=== PATIENT | male | born 1985 | race Caucasian/White ===

== ENCOUNTER → 2018-04-02 11:40 | Outpatient (CLI) | payer BC, SELFPAY ==
[2017-11-12 14:19] VITALS: BMI 25.7
--- NOTE | 2018-04-02 09:15 | VAS_PTH ---
PATIENT: CAITLIN WARREN LOC: [facility] U#:[id number] AGE/SX: 39/M ROOM: RE04/02/[address]: Dr. Orion Zaragoza MD : 1985 BED: DIS: SPEC #: [id number] RECD: 04/02/18 14:36 STATUS: VINGESH CATALINA #: [id number] SANTIAGO: 04/02/18 09:[address]: Orion Zaragoza DEPT: SURGICAL PATHOLOGY RECD BY: Luis Denton ENTERED: 04/02/18 14:36 SP TYPE: VAS OTHR DR: Dr. Flora Degroot MD Tissues: A - Vas deferens, NOS B - Vas deferens, NOS Procedures: Surgery Specimen Level II HEADER OPERATION: Bilateral partial vasectomy PRE-OP DIAGNOSIS: Sterilization TISSUE SUBMITTED: A - Right vas deferens, B - Left vas deferens MICROSCOPIC DIAGNOSIS A. Right vas deferens, segmental vasectomy: Complete cross-section of vas deferens with no pathologic change. B. Left vas deferens, segmental vasectomy: Complete cross-section of vas deferens with no pathologic change. AM:sergio 04/05/18 MICROSCOPIC DESCRIPTION Slides are reviewed. GROSS DESCRIPTION A - Received is one container designated right vas deferens. The specimen consists of a cylindrical segment of pink-fuchs soft tissue. The fragment measures 1 cm in length and 0.2 cm in maximum diameter. Serial sections do not reveal gross lesions. The specimen is serially sectioned and totally submitted in one cassette. B - Received is one container designated left vas deferens. The specimen consists of a cylindrical segment of pink-fuchs soft tissue. The fragment measures 1 cm in length and 0.2 cm in maximum diameter. Serial sections do not reveal gross lesions. The specimen is serially sectioned and totally submitted in one cassette. / AM:sergio 04/02/18 TC:5 CPT: 19975 x2
== END ==
PROVIDERS: Referring Provider Surgery; Visit Provider Surgery
DX: Z30.2 Encounter for sterilization (principal)
CPT/HCPCS: 88302

== ENCOUNTER → 2024-05-03 | Outpatient (CLI) | payer BC, SELFPAY ==
[2024-05-03 17:06] LABS: Absolute Lymphocyte Count 0.56 X10^3/uL (0.83-4.51); Absolute Neutrophil Count 5.9 X10^3/uL (2.0-7.7); Basophil# 0.04 X10^3/uL; Basophil% 0.6 % (0-1); Eosinophil# 0.17 X10^3/uL; Eosinophils% 2.4 % (0-5); Hematocrit 41.6 % (40-54); Hemoglobin 13.7 g/dL (13.0-16.5); Lymphocyte # 0.56 X10^3/ul (0.83-4.51); Lymphocyte % 7.9 % (19-41); Mean Corp Hgb Conc 32.9 g/dL (32-36); Mean Corpuscular Hgb 27.6 pg (27.0-32.0); Mean Corpuscular Volume 83.7 fL (80-94); Mean Platelet Vol. 10.5 fl (6.2-12.0); Monocyte# 0.48 X10^3/uL; Monocyte% 6.7 % (0-10); NRBC Flagged by Analyzer 0 % (0-5); Neutrophil # 5.85 X10^3/uL (2.7-7.7); Neutrophil % 82.1 % (47-70); POSITIVE DIFFERENTIAL YES; Platelet Count 234 K/mm3 (150-450); RBC Distribution Width CV 13.6 % (11.6-14.6); RBC Distribution Width SD 41.6 fl (35.1-43.9); Red Blood Count 4.97 M/mm3 (4.6-6.2); White Blood Count 7.1 K/mm3 (4.4-11.0)
[2024-05-03 18:49] LABS: ALB/GLOB Ratio 1.2 RATIO (0.9-2.4); AST(SGOT) 22 U/L (15-37); Alanine Aminotransfer ALT/SGPT 51 U/L (16-61); Albumin, Serum 4.3 g/dL (3.2-5.0); Alkaline Phosphatase 99 U/L (45-117); Anion Gap 5 (5-15); BUN 7 mg/dL (7-18); BUN/Creat Ratio 8.4 RATIO (10-20); Calcium,Total 9.7 mg/dL (8.5-10.1); Chloride 103 mmol/L (98-107); Creatinine, Serum 0.83 mg/dL (0.70-1.30); EST Glomerular Filtration Rate 109 mL/min (>60); Est Glom Filt Rate - Afr Amer 132 mL/min (>60); Globulin 3.7 g/dL (2.2-4.2); Glucose 95 mg/dL (74-106); Potassium 3.2 mmol/L (3.5-5.1); Sodium Level 138 mmol/L (136-145)
[2024-05-03 20:05] LABS: Hepatitis B Surface Antibody Reactive; Hepatitis B Surface Antigen Non-Reactive (Nonreactive)
[2024-05-05 16:08] LABS: Endomysial Antibody IgA Negative (Negative); Hepatitis B Core Ab Total Negative (Negative); Immunoglobulin A 148 mg/dL (90-386); QNTFERON TB Mitogen Value > 10.00 IU/mL (.); QNTFERON TB Nil Value 0.01 IU/mL (.); QNTFERON TB1+ Ag Value 0 IU/mL (.); QNTFERON TB2+ Ag Value 0 IU/mL (.); QNTIFERON TB Positive Criteria Negative (Negative); t-Transglutaminase IgA <2 U/mL (0-3)
[2024-05-07 08:11] LABS: Calprotectin, Stool 71 ug/g (0-120)
== END | disposition home or self-care (01) ==
LOC: LAB 16:40 → LABSPEC 17:03
PROVIDERS: Referring Provider Nurse Practitioner Acute Care; Visit Provider Nurse Practitioner Acute Care
DX: K50.90 Crohn's disease, unspecified, without complications (principal)
CPT/HCPCS: 36415; 80053; 82784; 83516; 83993; 85025; 86255; 86480; 86704; 86706; 87340

== ENCOUNTER → 2024-06-07 | Outpatient (CLI) | payer BC, SELFPAY ==
--- NOTE | 2024-06-07 11:24 | MRI_ITS ---
PROCEDURE: PELVIS W/WO CONTRAST REASON FOR EXAM: R/O rectal / ischial abcess TECHNIQUE: Multiplanar multisequence MRI was performed of the pelvis prior to and following the administration of IV contrast. CONTRAST: 18 mL Clariscan COMPARISON: None. FINDINGS: Note axial postcontrast imaging was not performed. Visualized bowel: Unremarkable. No findings to suggest a perirectal, perianal, or ischial abscess. Lymph nodes: Unremarkable. Vasculature: Unremarkable. Peritoneum: Unremarkable. Bladder: Underdistended and suboptimally evaluated. 10 mm suspected urachal cyst along the anterior midline bladder dome. Reproductive: Small bilateral hydroceles. Bandlike T2 hypointensity in the prostatic peripheral zone, incompletely characterized on nondedicated assessment but with morphology typical for mild chronic prostatitis, a common incidental finding. Pelvic wall: Operative changes. Bones: Unremarkable. MRI/Pelvis W/WO Contrast IMPRESSION: 1. Unremarkable appearance of the included bowel. No findings to suggest a per irectal, perianal, or ischial abscess. If unexplained symptoms persist, consider CT abdomen/pelvis with contrast. 2. Additional description as above. Reading Location: [id number]
== END | disposition home or self-care (01) ==
PROVIDERS: Referring Provider Nurse Practitioner Acute Care; Visit Provider Nurse Practitioner Acute Care
DX: K50.90 Crohn's disease, unspecified, without complications (principal)
CPT/HCPCS: 72197; A9575

== ENCOUNTER → 2024-06-13 | Outpatient (CLI) | payer BC, SELFPAY ==
--- NOTE | 2024-06-13 10:12 | MRI_ITS ---
PROCEDURE: ENTEROGRAPHY ABD/PEL (procedure code MRIMRIENTER), 06/13/2024 REASON FOR EXAM: K50.90 - Crohn's disease, unspecified, without complications 90 mL Clariscan TECHNIQUE: Multisequence multiplanar MR of the abdomen and pelvis was performed before and after the administration of IV contrast. IV CONTRAST: 19 mL Clariscan COMPARISON: None FINDINGS: Variable overall mild motion limitation with some sequences being mild/moderately motion degraded. Note that the exam is optimized for evaluation of the bowel and rather than the remaining abdominopelvic viscera. Some largely upper abdominal viscera are excluded from the field of view on some sequences. Note also that dynamic precontrast imaging and diffusion-weighted sequences were not performed. Note also that a small portion of the transverse colon extends above the field of view at the level of the splenic flexure. Note that the perianal region is excluded from the field of view of most axial imaging. Liver: Grossly unremarkable.. Spleen: Grossly unremarkable.. Gallbladder: Unremarkable.. Pancreas: Unremarkable. Adrenals: Unremarkable. Kidneys: Tiny cyst on the left.. Bowel: Partially imaged splenic flexure as. No bowel dilatation or convincing inflammation. Suspect ileocecectomy with ileocecal anastomosis. Short segment (approximately 2 cm) of borderline mild T2 dark wall thickening along the neoterminal ileum, up to a maximum 5 mm without mural stratification, hyperemia or adjacent mesenteric inflammation. No other convincing areas of abnormal wall thickening allowing for underdistention thickening of some segments. No evidence of fistulization or abscess. Appendix probably surgically absent.. Lymph nodes: Unremarkable. Vasculature: Unremarkable. Peritoneum: Unremarkable. Bladder: 8 mm suspected urachal cyst along the midline anterior bladder dome. Reproductive Organs: Grossly unremarkable.. Body Wall: Operative changes. Bones: Presumed hemangioma in a lower thoracic vertebral body in the absence of known malignancy. Trace thoracolumbar dextroscoliosis may be positional. MRI/Enterography Abd/Pel IMPRESSION: 1. Suspect ileocecectomy with ileocolic anastomosis. There is a short segment of mild apparent wall thickening along the neoterminal ileum, without convincing evidence of associated active inflammatio n. This could be related to underdistention, or perhaps fibrosis related to previous inflammation. This would be optimally end ed evaluated endoscopically. No bowel dilatation to confirm that this reflects a stricture. No other abnormal areas of abnormal bowel are confidently identified, allowing for limitations. No definite evidence of penetrating disease such as fistulization or abscess. 2. Additional description as above. Reading Location: [id number]
[2024-06-13 11:00] VITALS: BP 164/110; PULSE 58; RESP 18; TEMP 36.3; O2SAT 99; BMI 25.0
[2024-06-13] MEDS: Glucagon 1 MG/ML Syringe IV (11:55)
[2024-06-13] MEDS: 0.9% Saline Lock 10 ML Syringe IV (11:55)
[2024-06-13 12:07] VITALS: BP 169/115; PULSE 78; RESP 18; O2SAT 100
== END | disposition home or self-care (01) ==
LOC: MRI 10:02
PROVIDERS: PCP Family Medicine; Referring Provider Nurse Practitioner Acute Care; Visit Provider Nurse Practitioner Acute Care
DX: K50.90 Crohn's disease, unspecified, without complications (principal)
CPT/HCPCS: 74183; 96374; A9575; J1610

== ENCOUNTER → 2024-06-20 | Outpatient (CLI) | payer BC, SELFPAY ==
[2024-06-20 22:13] LABS: Vitamin B12 358 pg/mL (180-914); Vitamin D,25 Hydroxy 34.6 ng/mL (30-100)
== END | disposition home or self-care (01) ==
LOC: LAB 15:57
PROVIDERS: PCP Family Medicine; Referring Provider Nurse Practitioner Acute Care; Visit Provider Nurse Practitioner Acute Care
DX: K50.813 Crohn's disease of both small and large intestine with fistula (principal); K90.9 Intestinal malabsorption, unspecified
CPT/HCPCS: 36415; 82306; 82607; 86140

== ENCOUNTER 2024-07-14 05:42 | Day surgery (SDC) | payer BC, SELFPAY ==
[2024-07-14] VITALS (8 sets, daily range): BP systolic 112–134; BP diastolic 75–92; PULSE 71–89; RESP 16–18; TEMP 36.3–36.4; O2SAT 95–98; BMI 26.6
--- NOTE | 2024-07-14 06:23 | PRE.ANES_ITS ---
ASA Classification* ASA Classification ASA Classification: 2 Assessment & Plan Anesthesia* Anesthesia Assessment Anesthesia Assessment: Discussed sedation and/or anesthesia options, risks, benefits, and alternatives with patient/parents/legal guardian/POA. Questions invited. The patient/parents/legal guardian/POA seems to understand and agrees to proceed with anesthesia plan. Reviewed the physical assessment, medical history, allergy history and patient home medications list prior to surgery/procedure/anesthetic and documented any changes. Performed airway and anesthesia risk assessments. Anesthesia Type Anesthesia Type: MAC History Source History Obtained from:: Patient and Chart Anesthesia Focused Assessment* Temperature: 97.5 F Pulse Rate: 71 Blood Pressure: 134/92 Respiratory Rate: 16 Pulse Ox: 98 Oxygen Delivery Method: Room Air Airway Assessment Mouth opens: >3 cm Mallampati Score: III Teeth Condition: Missing (Patient has several missing molars. Rest are tight.) Focused Labs Anesthesia Preop lab: CBC WBC 7.1 K/mm3 (4.4-11.0) 05/03/24 16:43 05/03/24 RBC 4.97 M/mm3 (4.6-6.2) 05/03/24 16:43 05/03/24 Hgb 13.7 g/dL (13.0-16.5) 05/03/24 16:43 05/03/24 Hct 41.6 % (40-54) 05/03/24 16:43 05/03/24 Plt Count 234 K/mm3 (150-450) 05/03/24 16:43 05/03/24 CHEMISTRY Potassium 3.2 mmol/L (3.5-5.1) L 05/03/24 16:43 05/03/24 Sodium 138 mmol/L (136-145) 05/03/24 16:43 05/03/24 BUN 7 mg/dL (7-18) 05/03/24 16:43 05/03/24 Creatinine 0.83 mg/dL (0.70-1.30) 05/03/24 16:43 05/03/24 Glucose 95 mg/dL (74-106) 05/03/24 16:43 05/03/24 COAG Pre-Assessment Diagnosis/Proposed Procedure Planned Operative Procedure(s): COLONOSCOPY/EGD Anesthesia History 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 When Was Last Pacemaker Check QUESTION #4 FULL TEXT: You/Your Family Experience fever (hyperthermia) with Anesthesia Last Oral Intake Last Oral intake: Last Oral Intake NPO since 02:07/14/24 06:12 Meds taken in AM with sips of Yes 07/14/24 06:12 water? Meds patient instructed to take am of surgery Any additional information?: Yes NPO since: 02:30 (Patient finished prep at 2:30 AM.) Meds taken in AM with sips of water?: Yes PONV PONV - airline customer service agent: PONV - airline customer service agent Female No 07/08/24 12:09 HX of Motion Sickness No 07/08/24 12:09 HX of N/V After Surgery No 07/08/24 12:09 Non-Smoker Yes 07/08/24 12:09 Duration of Surgery greater No 07/08/24 12:09 than 60 minutes Number of Risk Factors 1 07/08/24 12:09 PONV Score Low Risk 07/08/24 12:09 Height & Weight Height & Weight: Anesthesia: Height & Weight Height 6 ft 1 in 07/14/24 06:12 Weight: 91.716 kg 07/14/24 06:12 Body Mass Index (BMI) 26.6 07/14/24 06:12 Respiratory Assessment Respiratory Assessment - airline customer service agent: Respiratory Tract Infection Hx - airline customer service agent Hx Respiratory Tract Infection No 07/08/24 12:09 Any additional information?: Yes Hx Respiratory Tract Infection: Yes (Cough from allergies recently.) STOP Sleep Apnea STOP Sleep Apnea - airline customer service agent: STOP Sleep Apnea - airline customer service agent Hx Hypertension Yes: RECENTLY STARTED MED, 07/08/24 12:09 NOT CONTROLLED, INSTRUCTED TO CALL PCP Hx Sleep Apnea No 07/08/24 12:09 CPAP BIPAP Do you snore loudly (louder No 07/08/24 12:09 than talking or can be heard Do you often feel tired/ No 07/08/24 12:09 fatigued/ sleepy during daytime? Has anyone observed you stop No 07/08/24 12:09 breathing during sleep? STOP Results Negative 07/08/24 12:09 QUESTION #5 FULL TEXT : Do you snore loudly (louder than talking or can be heard through closed doors)? 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 Specify any problems Hx of Preganancy in last 3 N/A 07/08/24 12:09 Months Nurse Filling Out Transfusion VCHRISTIN 07/08/24 12:09 & Questions: Date: 07/08/24 07/08/24 12:09 Time: 12:11 07/08/24 12:09 Patient unable to answer at this time (ie. confused, unrespo /Reproduction History /Reproductive History - airline customer service agent: /Reproductive Hx- airline customer service agent Hx Now Gestational Age (in weeks): EDC: Hx Hx Para Hx Section SAB Active Medications Active Medications: Current Medications Generic Name Dose Route Start Last Admin Trade Name Freq PRN Reason Stop Dose Admin Sodium Chloride 10 - 40 ml 06/13/24 10:57 0.9% Saline Lock 10 Ml Syringe IV UD PRN SALINE FLUSH PFSH Medical History Wears contact lenses Alcohol use Prostate disease Dietary restriction History of diverticulitis History of Crohn's disease Non-smoker Hypertension Recurrent right inguinal hernia Home Medications ?Medication ?Instructions ?Recorded ?Last Taken ?Type Bacillus coagulans 250 million 1 tab PO DAILY 06/20/24 07/13/24 History cell chewable tablet (Digestive Advantage Probiotic Gummy) metronidazole 500 mg tablet 500 mg PO BID fistulizing Crohn's 06/20/24 07/13/24 Rx #60 tabs budesonide 3 mg 9 mg PO QAM Crohn's 07/08/24 07/13/24 History capsule,delayed,extended release multivitamin (Daily Multi-Vitamin 1 tab PO DAILY 07/0807/13/24 History tablet) amlodipine 5 mg tablet 5 mg PO BID 07/14/24 5 04:30 History losartan 50 mg-hydrochlorothiazide 2 tab PO DAILY 07/0507/13/24 History 12.5 mg tablet (Hyzaar) Allergy/AdvReac Type Severity Reaction Status Date / Time lactose (lactose intolerant) Allergy Severe OTHER Verified 07/14/24 06:08 Family History Father Arthritis Surgical History History of bowel resection History of appendectomy History of vasectomy (~03/2018) Hernia Social History Smoking Status: Never smoker alcohol intake: current alcohol intake frequency: a few times a month Review of Systems (Anesthesia) ROS Narrative System reviewed and no additional complaints, except as documented. 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
--- NOTE | 2024-07-14 06:30 | EGD_PTH ---
PATIENT: CAITLIN WARREN LOC: [facility] U#:[id number] AGE/SX: 39/M ROOM: RE07/14/[address]: Dr. Price Villanueva DO : 1985 BED: DIS: 07/14/2024 SPEC #: [id number] RECD: 07/14/24 08:58 STATUS: VIGNESH CATALINA #: [id number] SANTIAGO: 07/14/24 06:[address]: Price Villanueva DEPT: SURGICAL PATHOLOGY RECD BY: Bandar Murray ENTERED: 07/14/24 08:59 SP TYPE: EGD BIOPSY MARGARITA DR: Dr. Doni Degroot MD Tissues: A - Esophagus, NOS B - COLON BIOPSY C - Ileum, NOS Procedures: Surgery Specimen Level IV HEADER OPERATION: Colonoscopy, EGD, biopsy PRE-OP DIAGNOSIS: Crohn's disease, abdominal pain, diarrhea TISSUE SUBMITTED: A- Distal esophagus biopsy, B- Anastomosis biopsy, C- Terminal ileum biopsy MICROSCOPIC DIAGNOSIS A. Distal esophagus, biopsy: * Benign squamous epithelium * Oxyntocardiac type mucosa with mild chronic inflammation, negative for goblet cells B. Anastomosis site, biopsy: * Mild active chronic ileocolitis, negative for dysplasia C. Small intestine, terminal ileum, biopsy: * Small bowel mucosa with no pathologic change COMMENT The patient's clinical history of Crohn's disease is noted MICROSCOPIC DESCRIPTION Slides are reviewed. GROSS DESCRIPTION A. Received in formalin in a container labeled with the patient's name, date of , and distal esophagus biopsy is a 0.4 x 0.3 x 0.2 cm fragment of fuchs-pink mucosal tissue. Submitted in toto in A1. B. Received in formalin in a container labeled with the patient's name, date of , and anastomosis biopsy are 2 fuchs-pink fragments of mucosal tissue measuring 0.4 x 0.3 x 0.3 cm and 0.6 x 0.5 x 0.2 cm. Submitted in toto in B1. C. Received in formalin in a container labeled with the patient's name, date of , and terminal ileum biopsy are 2 fuchs-pink fragments of mucosal tissue, each measuring 0.3 x 0.3 x 0.3 cm. Submitted in toto in C1. [facility] 07-14-2024 CPT:96173o8
--- NOTE | 2024-07-14 07:01 | PCM.HP.STD ---
[facility] - General General Date of Admission: 07/14/24 Date of Service: 07/14/24 Chief Complaint: Crohns disease with abdominal pain HPI Narrative CAITLIN WARREN, is a 39 M who presents for the evaluation of abdominal pain. He presented to the ED on 03/21/2024 with complaints of abdominal pain which he had reported was present for >20 years and worse over the past three weeks accompanied by diarrhea. In ED he had a leukocytosis with a left shift, HGB 13.[address] was revealing for appendicitis, thickening of the adjacent SB and 3.2cm pelvic fluid collection. He underwent exploratory laparoscopy, lysis of dense adhesions, oversewing sigmoid enterotomy, ileocecal resection and side to side anastomosis. Pathology is revealing for ileocecal junction with active chronic inflammation with ulceration, full-thickness inflammation, fibrous serosal adhesions and fistula consistent with crohn's. He reports PMH of IBS diagnosed at 18y/o, rectal abscess with I&D in 2013. He has had crampy abdominal pain with diarrhea for many years which he always suspected was secondary to IBS and food intolerances. He denies any family history of IBD. He presently complains of RLQ pain with PO intake, he is continuing to experience diarrhea and rectal jelly discharge. He denies any rectal pain and reports an initial weight loss of 20lbs post-op but has gained 10lb back. He is tolerating soft foods, but reports diarrhea with any PO intake. Prior to admission and immediately post he was taking IBU or Advil for pain management. He presently denies any rectal bleeding. He has 3-4 loose stools daily, but report no nocturnal stools post-op. Rectal exam is unremarkable, he does have a 2-3cm ovoid firm fullness right ischium. I have scheduled him for a colonoscopy and EGD. I have ordered MRE, MRI pelvis, labs and stool studies in anticipation of starting biologic therapy. I have reviewed with Dr. Villanueva and I will start him on Metronidazole 250mg BID (until biologic is initiated), Budesonide 9mg QD, probiotic and initiate PA for biologic once labs have resulted. A total of 90 minutes was spent on this visit reviewing [facility] and/or [facility] for associated records; previous notes (OP note 03/21, pathology, CT 03/21, CT 03/24, CT 03/27, CBC, CMP,CRP), counseling the patient on (Reviewing pathology findings with patient and , reviewing likely Crohn's diagnosis, reviewing recommended next steps, explained in detail need to solidify the diagnosis of Crohn's which is highly suspected and treat inflammation before considering another alternative for cause of diarrhea such as food allergens which has requested be worked up, reviewing anatomy post-op with side to side anastomosis and lack of IC valve resulting in increased risk of diarrhea, importance of avoiding all NSAIDS, potential treatment approach for IBD), ordering tests (Colon/EGD, MRE, MRI pelvis, CBC, CMP, CRP, Celiac serologies, HBV Core, HBVsAb, HBVsAg, Vitamin B12, Vitamin D, C. Diff, GIPCR, O&P, fecal calprotectin), adjusting meds, importance of compliance with treatment and documenting the findings in the note. CBC: 05/03/2024 WNL CMP: 05/03/2024 K+ 3.2, T. Bili 1.5 CRP: Fecal Calprotectin: 05/03/2024 71 Quantiferon: 05/03/2024 negative HBVsA05/03/2024 negative HBVsAb: 05/03/2024 reactive HBV Core Ab Total: 05/03/2024 negative Colon: scheduled 07/15/2024 - per surgeon stated we must wait another 6-8 weeks post last OV (05/05/2024) due to the severity of inflammation and friability like tissue trying to sew back together MRE: 06/13/2024 There is a short segment of mild apparent wall thickening along the neoterminal ileum, without convincing evidence of associated active inflammation. This could be related to underdistention, or perhaps fibrosis related to previous inflammation. This would be optimally ended evaluated endoscopically. No bowel dilatation to confirm that this reflects a stricture. No other abnormal areas of abnormal bowel are confidently identified, allowing for limitations. No definite evidence of penetrating disease such as fistulization or abscess. COVID Varicella Hepattis B - positive Ab 05/03/2024 Influenza Pneumonia Shingles - he avoiding dairy, raw vegetables and alcohol - He looks better today compared to April IBD SYMPTOMS: Bowel movements are: this week stools are formed and normal, 3x a day this is an improvement prior to surgery he was having 5-8 stools a day and often would not make it through a meal without having diarrhea Blood noted in stools: denies Bowel movement urgency present: occasional Stool incontinence: denies Nocturnal BM's: denies Abdominal pain: RLQ and LLQ Rectal pain: denies QOL: good [facility] History Wears contact lenses Alcohol use Prostate disease Dietary restriction History of diverticulitis History of Crohn's disease Non-smoker Hypertension Recurrent right inguinal hernia Home Medications ?Medication ?Instructions ?Recorded ?Last Taken ?Type Bacillus coagulans 250 million 1 tab PO DAILY 06/20/24 07/13/24 History cell chewable tablet (Digestive Advantage Probiotic Gummy) metronidazole 500 mg tablet 500 mg PO BID fistulizing Crohn's 06/20/24 07/13/24 Rx #60 tabs budesonide 3 mg 9 mg PO QAM Crohn's 07/08/24 07/13/24 History capsule,delayed,extended release multivitamin (Daily Multi-Vitamin 1 tab PO DAILY 07/08/24 07/13/24 History tablet) amlodipine 5 mg tablet 5 mg PO BID 07/14/24 07/14/24 04:30 History losartan 50 mg-hydrochlorothiazide 2 tab PO DAILY 07/14/24 07/13/24 History 12.5 mg tablet (Hyzaar) Allergy/AdvReac Type Severity Reaction Status Date / Time lactose (lactose intolerant) Allergy Severe OTHER Verified 07/14/24 06:08 Family History Father Arthritis Surgical History History of bowel resection History of appendectomy History of vasectomy (~03/2018) Hernia Social History Smoking Status: Never smoker alcohol intake: current alcohol intake frequency: a few times a month ROS Constitutional Constitutional: Denies fatigue, fever(s), poor appetite, weight gain or weight loss Gastrointestinal Gastrointestinal: Denies belching, bloating, change in bowel habits, change in stool character, chewing difficulty, coffee ground emesis, constipation, cramping, diarrhea, dyspepsia, dysphagia, early satiety, excessive flatus, fecal incontinence, heartburn, hematemesis, hematochezia, hemorrhoids, loose stools, melena, nausea, odynophagia, rectal bleeding, tenesmus, vomiting or weight changes Vital Signs Vital Signs Vital Signs: 07/14/24 06:10 07/14/24 06:12 07/14/24 06:29 Temperature 97.5 F L 97.5 F L Temperature Source Temporal Pulse Rate 71 71 Respiratory Rate 16 16 Respiratory Pattern Normal Blood Pressure 134/92 H 134/92 H Blood Pressure Mean 106 Blood Pressure Source Monitor Blood Pressure Position Semi-Fowlers Blood Pressure Location Left Arm Pulse Ox 98 98 Oxygen Delivery Method Room Air Room Air Weight Weight: 202 lb 3.2 oz Body Mass Index (BMI) 26.6 Physical Exam Const alert, oriented x3, no apparent distress and healthy appearing General Appearance: cooperative GI normal to inspection, nondistended, normoactive bowel sounds, soft to palpation, non-tender and non-distended Percussion: normal to percussion Rectal Exam: deferred Assessment & Plan Assessment/Plan (1) Diarrhea: QUALIFIERS: Diarrhea type: due to malabsorption Qualified Code(s): 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, unspecified; R19.7 - Diarrhea, unspecified (2) Abdominal pain: QUALIFIERS: Abdominal location: right lower quadrant Qualified Code(s): R10.31 - Right lower quadrant pain (3) Crohn disease: QUALIFIERS: Gastrointestinal tract location: small and large intestine Digestive disease complication type: with fistula Qualified Code(s): K50.813 - Crohn's disease of both small and large intestine with fistula PLAN: Assessment and Plan Assessment and Plan (1) Crohn disease: Status: Acute Qualifiers: Digestive disease complication type: with fistula Gastrointestinal tract location: small and large intestine Qualified Code(s): K50.813 - Crohn's disease of both small and large intestine with fistula Comment: 03/21/2024 exploratory laparoscopy, lysis of dense adhesions, oversewing sigmoid enterotomy, ileocecal resection and side to side anastomosis. Pathology is revealing for ileocecal junction with active chronic inflammation with ulceration, full-thickness inflammation, fibrous serosal adhesions and fistula consistent with crohn's. (2) Abdominal pain: Status: Acute Qualifiers: Abdominal location: right lower quadrant Qualified Code(s): R10.31 - Right lower quadrant pain (3) Diarrhea: Status: Acute Qualifiers: Diarrhea type: due to malabsorption Qualified Code(s): 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, unspecified; R19.7 - Diarrhea, unspecified Orders: Orders Miscellaneous Lab Procedure Today K50.813 - Crohn's disease of both small and large intestine with fistula, 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, unspecified, R10.31 - Right lower quadrant pain, R19.7 - Diarrhea, unspecified Medications: New metronidazole 500 mg PO BID 60 tabs 1RF fistulizing Crohn's budesonide DR-ER 6 mg (2 x 3 mg) PO QAM 60 ea 3RF Crohn's Discontinued budesonide DR-ER Take 3 capsules once every morning Discontinued Reason: Order Changed 9 mg (3 x 3 mg) PO QDAY 90 ea 1RF Plan 39y/o male presents for follow-up. He remains on Budesonide 9mg daily, but complains of insomnia and hypertension. He reports an improvement in abdominal pain and diarrhea. He continues to experience intermittent mild RLQ and LLQ pain with occasional diarrhea. He denies any bleeding and reports an improvement in appetite and weight. His pathology is consistent with Crohn's disease, and his recent surgery suggests significant prior inflammation and complications (adhesions, fistula and reactive enteritis). His fecal calprotectin of 71 is reassuring, suggesting minimal active inflammation, and his MRE does not show clear active disease, strictures or fistulization. While the pathology from surgery confirms the diagnosis, I recommend a colonoscopy to assess the full extent and severity of his crohn's disease. Since his fecal calprotectin was relatively low, there may not be significant inflammation, but given his history of complications (adhesions, fistula), a full evaluation is warranted before finalizing a long-term treatment plan. Due to c/o insomnia, I have decreased his Budesonide to 6mg daily and he will contact me with any increase in pain, diarrhea or obstructive symptoms. I have asked him to follow-up with PCP, while budesonide may contribute to some mild hypertension, it is not the cause of SBP in the 170's and DBP in the 120's. does report he had issues with hypertension prior to surgery March 2024. Post colonoscopy, I recommend transitioning to maintenance therapy and with his history of fistulizing disease I recommend triple therapy with a combination of Remicade and Imuran with antibiotics for 2-3 months. Patient Instructions: Decrease Budesonide to 6mg daily Continue Metronidazole 500mg BID Follow-up with PCP for hypertension Adequate dietary intake is important, recommend he remain on a low residue diet at this time Avoid all non-steroidal medications Repeat fecal calprotectin, inflammatory markers and consider repeat imaging if symptoms suggest disease progression Link to dietary recommendations [email or web address] Complete labs TPMT activity level: Test# [id number] (TPMT helps clear the medication from your system. If you have lower amounts of TPMT, you may be at higher risk for medication toxicity.) Thiopuring Metabolites: Thiopurine Metabolites Test# 428091 TPMT Genotyping Test# 778808 Vitamin D Vitamin B12 CRP Plan Details Follow Up: 6 Weeks
--- NOTE | 2024-07-14 07:31 | OP.CCLET_ITS ---
07/14/2024 Doni Degroot Md Re : Upper GI endoscopy procedure for Jair Issa Dear Zane This procedure was performed on July. My impressions and recommendations are as follows: Impressions : - LA Grade B reflux esophagitis with no bleeding. Biopsied. - Gastroparesis. - Erythematous duodenopathy. Recommendations : - Discharge patient to home. - Resume previous diet. - Continue present medications. - Await pathology results. - Repeat upper endoscopy. My findings are described in the full procedure note, which is enclosed. If I can be of further assistance, please feel free to contact me at . Sincerely, Price Villanueva, 07/14/2024 7:30:55 AM This report has been signed electronically.
--- NOTE | 2024-07-14 07:31 | OP.EGD_ITS ---
Patient Name: Jair Issa Procedure Date: 07/14/2024 6:22 AM Date of : 1985 Age: 39 Procedure: Upper GI endoscopy Indications: Epigastric abdominal pain Providers: Price Villanueva DO Referring MD: Doni Degroot Md Medicines: Monitored Anesthesia Care Patient Profile: This is a 39 year old male. Refer to note in patient chart for documentation of history and physical. Patient has symptoms of chronic global abdominal pain and chronic nausea. Complications: No immediate complications. Procedure: Pre-Anesthesia Assessment: - Prior to the procedure, a History and Physical was performed, and patient medications and allergies were reviewed. The patient is competent. The risks and benefits of the procedure and the sedation options and risks were discussed with the patient. All questions were answered and informed consent was obtained. Patient identification and proposed procedure were verified by the physician in the pre-procedure area. Mental Status Examination: alert and oriented. Airway Examination: normal oropharyngeal airway and neck mobility. Respiratory Examination: clear to auscultation. CV Examination: normal. Prophylactic Antibiotics: The patient does not require prophylactic antibiotics. Prior Anticoagulants: The patient has taken no anticoagulant or antiplatelet agents except for NSAID medication. ASA Grade Assessment: II - A patient with mild systemic disease. After reviewing the risks and benefits, the patient was deemed in satisfactory condition to undergo the procedure. The anesthesia plan was to use monitored anesthesia care (MAC). Immediately prior to administration of medications, the patient was re-assessed for adequacy to receive sedatives. The heart rate, respiratory rate, oxygen saturations, blood pressure, adequacy of pulmonary ventilation, and response to care were monitored throughout the procedure. The physical status of the patient was re-assessed after the procedure. After obtaining informed consent, the endoscope was passed under direct vision. Throughout the procedure, the patient's blood pressure, pulse, and oxygen saturations were monitored continuously. The colonoscope was introduced through the mouth, and advanced to the fourth part of the duodenum. Small bowel enteroscopy was deemed necessary. The upper GI endoscopy was accomplished without difficulty. The patient tolerated the procedure well. Scope In: 7:15:00 AM Scope Out: 7:16:46 AM Total Procedure Duration Time 0 hours 1 minute 46 seconds Findings: LA Grade B (one or more mucosal breaks greater than 5 mm, not extending between the tops of two mucosal folds) esophagitis with no bleeding was found 38 to 40 cm from the incisors. Biopsies were taken with a cold forceps for histology. Verification of patient identification for the specimen was done. Estimated blood loss was minimal. Suspect gastroparesis due to absence of peristalsis, patient symptoms and retained gastric contents. Diffuse mildly erythematous mucosa without active bleeding and with no stigmata of bleeding was found in the entire duodenum. Impression: - LA Grade B reflux esophagitis with no bleeding. Biopsied. - Gastroparesis. - Erythematous duodenopathy. Recommendation: - Discharge patient to home. - Resume previous diet. - Continue present medications. - Await pathology results. - Repeat upper endoscopy. Procedure Code(s): --- Professional --- 46550, Small intestinal endoscopy, enteroscopy beyond second portion of duodenum, not including ileum; with biopsy, single or multiple CPT copyright 2021 [employer]. All rights reserved. The codes documented in this report are preliminary and upon hcc coders review may be revised to meet current compliance requirements. Price Villanueva DO 07/14/2024 7:30:55 AM This report has been signed electronically. Number of Addenda: 0 Note Initiated On: 07/14/2024 6:22 AM
--- NOTE | 2024-07-14 07:36 | PCM.POST.ANE ---
Anesthesia: Postop Eval I Current Vital Signs Temperature: 97.3 F Pulse Rate: 86 Blood Pressure: 114/80 Respiratory Rate: 18 Pulse Ox: 96 Oxygen Delivery Method: Room Air Assessment Airway patent: Yes Spontaneous unlabored respirations: Yes Mental status: Asleep nausea: No Vomiting: No Anesthesia Complication: No Fluid Hydration Crystalloid volume administer (ml): 60 Total IV fluid infused: 60 Progress Note Anesthesia document: Postop Eval 1 completed: Yes
--- NOTE | 2024-07-14 07:37 | OP.CCLET_ITS ---
07/14/2024 Doni Degroot Md Re : Colonoscopy procedure for Jair Issa Dear Zane This procedure was performed on July. My impressions and recommendations are as follows: Impressions : - Preparation of the colon was unsatisfactory. - Patent end-to-side ileo-colonic anastomosis, characterized by erythema, inflammation and ulceration. Biopsied. - Simple Endoscopic Score for Crohn's Disease: 15, mucosal inflammatory changes secondary to Crohn's disease and secondary to Crohn's disease, with ileitis and colitis. Biopsied. - Stool in the entire examined colon. Recommendations : - Discharge patient to home. - Resume previous diet. - Continue present medications. - Await pathology results. - Repeat colonoscopy for surveillance. My findings are described in the full procedure note, which is enclosed. If I can be of further assistance, please feel free to contact me at . Sincerely, Price Villanueva, 07/14/2024 7:36:48 AM This report has been signed electronically.
--- NOTE | 2024-07-14 07:37 | OP.COLON_ITS ---
Patient Name: Jair Issa Procedure Date: 07/14/2024 7:17 AM Date of : 1985 Age: 39 Procedure: Colonoscopy Indications: Crohn's disease of the small bowel and colon Providers: Price Villanueva DO Referring MD: Doni Degroot Md Medicines: Monitored Anesthesia Care Patient Profile: This is a 39 year old male. Refer to note in patient chart for documentation of history and physical. Patient has symptoms of chronic global abdominal pain and chronic nausea. Last Colonoscopy: more than 3 years ago. Complications: No immediate complications. Procedure: Pre-Anesthesia Assessment: - Prior to the procedure, a History and Physical was performed, and patient medications and allergies were reviewed. The patient is competent. The risks and benefits of the procedure and the sedation options and risks were discussed with the patient. All questions were answered and informed consent was obtained. Patient identification and proposed procedure were verified by the physician in the pre-procedure area. Mental Status Examination: alert and oriented. Airway Examination: normal oropharyngeal airway and neck mobility. Respiratory Examination: clear to auscultation. CV Examination: normal. Prophylactic Antibiotics: The patient does not require prophylactic antibiotics. Prior Anticoagulants: The patient has taken no anticoagulant or antiplatelet agents except for NSAID medication. ASA Grade Assessment: II - A patient with mild systemic disease. After reviewing the risks and benefits, the patient was deemed in satisfactory condition to undergo the procedure. The anesthesia plan was to use monitored anesthesia care (MAC). Immediately prior to administration of medications, the patient was re-assessed for adequacy to receive sedatives. The heart rate, respiratory rate, oxygen saturations, blood pressure, adequacy of pulmonary ventilation, and response to care were monitored throughout the procedure. The physical status of the patient was re-assessed after the procedure. After I obtained informed consent, the scope was passed under direct vision. Throughout the procedure, the patient's blood pressure, pulse, and oxygen saturations were monitored continuously. The colonoscope was introduced through the anus and advanced to the terminal ileum. The colonoscopy was performed without difficulty. The patient tolerated the procedure well. The quality of the bowel preparation was unsatisfactory. The terminal ileum was photographed. Scope In: 7:18:38 AM Scope Withdrawal Time 0 hours 3 minutes 35 seconds Scope Out: 7:27:30 AM Total Procedure Duration Time 0 hours 8 minutes 52 seconds Findings: The perianal and digital rectal examinations were normal. There was evidence of a prior end-to-side ileo-colonic anastomosis in the ascending colon. This was patent and was characterized by erythema, inflammation and ulceration. The anastomosis was traversed. Biopsies were taken with a cold forceps for histology. Verification of patient identification for the specimen was done. Estimated blood loss was minimal. The Simple Endoscopic Score for Crohn's Disease was determined based on the endoscopic appearance of the mucosa in the following segments: - Ileum: Findings include ulcers greater than 2 cm in size, 10-30% ulcerated surfaces, 50-75% of surfaces affected and multiple narrowings that can be passed. Segment score: 9. - Right Colon: Findings include aphthous ulcers less than 0.5 cm in size, no ulcerated surfaces, no affected surfaces and no narrowings. Segment score: 1. - Transverse Colon: Findings include no ulcers present, no ulcerated surfaces, no affected surfaces, no narrowings and no ulcers present, no ulcerated surfaces, no affected surfaces and no narrowings. Segment score: 0. - Left Colon: Findings include large ulcers 0.5-2 cm in size, less than 10% ulcerated surfaces, less than 50% of surfaces affected, a single narrowing that can be passed and no ulcers present, no ulcerated surfaces, no affected surfaces and no narrowings. Segment score: 5. - Rectum: Findings include no ulcers present, no ulcerated surfaces, no affected surfaces, no narrowings and no ulcers present, no ulcerated surfaces, no affected surfaces and no narrowings. Segment score: 0. - Total SES-CD aggregate score: 15. Biopsies were taken with a cold forceps for histology. Verification of patient identification for the specimen was done. Estimated blood loss was minimal. Stool was found in the entire colon. Impression: - Preparation of the colon was unsatisfactory. - Patent end-to-side ileo-colonic anastomosis, characterized by erythema, inflammation and ulceration. Biopsied. - Simple Endoscopic Score for Crohn's Disease: 15, mucosal inflammatory changes secondary to Crohn's disease and secondary to Crohn's disease, with ileitis and colitis. Biopsied. - Stool in the entire examined colon. Recommendation: - Discharge patient to home. - Resume previous diet. - Continue present medications. - Await pathology results. - Repeat colonoscopy for surveillance. Procedure Code(s): --- Professional --- 27307, Colonoscopy, flexible; with biopsy, single or multiple CPT copyright 2021 [employer]. All rights reserved. The codes documented in this report are preliminary and upon clinical application manager review may be revised to meet current compliance requirements. Price Villanueva DO 07/14/2024 7:36:48 AM This report has been signed electronically. Number of Addenda: 0 Note Initiated On: 07/14/2024 7:17 AM
--- NOTE | 2024-07-14 09:01 | PCM.POSTANE2 ---
Anesthesia Postop Eval I Sum Postop Eval Completion status Anesthesia document: Postop Eval 1 completed: Yes Anesthesia Postop Eval I Summary Anesthesia Postop Eval I Summary: Anesthesia Postop Eval I: Assessment Summary Airway patent Yes 07/14/24 07:37 [email or web address] Spontaneous unlabored Yes 07/14/24 07:37 [email or web address] respirations Mental status Asleep 07/14/24 07:37 [email or web address] nausea No 07/14/24 07:37 [email or web address] Vomiting No 07/14/24 07:37 [email or web address] Anesthesia Postop Eval I: Fluid Summary Crystalloid volume administer 60 07/14/24 07:37 [email or web address] (ml) Colloids volume administered ( ml) Blood Product volume administered (ml) Total IV fluid infused 60 07/14/24 07:37 [email or web address] Anesthesia Postop Eval I: Summary Notes Anesthesia Complication No 07/14/24 07:37 [email or web address] Anesthesia Complication Comment: Post-operative progress note Anesthesia: Postop Eval II Evaluation Mental status: Awake and Calm Pain Level: 0 nausea: No Vomiting: No Complications Anesthesia Complication: No
== END 2024-07-14 08:45 | disposition home or self-care (01) ==
LOC: EN 05:42 → AC 05:44
PROVIDERS: PCP Family Medicine; Referring Provider Family Medicine; Visit Provider Internal Medicine Gastroenterology
PROC: 0DJD8ZZ Inspection of Lower Intestinal Tract, Via Natural or Artificial Opening Endoscopic (ICD-10-PCS; CPT 45378; principal; 2024-07-14 06:25)
DX: K50.80 Crohn's disease of both small and large intestine without complications (principal); K90.9 Intestinal malabsorption, unspecified; K21.00 Gastro-esophageal reflux disease with esophagitis, without bleeding; K31.89 Other diseases of stomach and duodenum; K31.84 Gastroparesis; I10 Essential (primary) hypertension; Z98.0 Intestinal bypass and anastomosis status; Z79.899 Other long term (current) drug therapy
CPT/HCPCS: 45380; 44361; 88305; A4216; J2405

== ENCOUNTER → 2024-12-26 | Outpatient (CLI) | payer BC, SELFPAY ==
[2024-12-26 12:49] LABS: Hematocrit 38.0 % (40-54); Hemoglobin 12.1 g/dL (13.0-16.5); Immature Granulocytes Count 0.030 X10^3/uL (0.0-0.0); Mean Corp Hgb Conc 31.8 g/dL (32-36); Mean Corpuscular Volume 78.4 fL (80-94); Mean Platelet Vol. 11.7 fl (6.2-12.0); NRBC Flagged by Analyzer 0 % (0-5); Platelet Count 185 K/mm3 (150-450); RBC Distribution Width CV 16.4 % (11.6-14.6); RBC Distribution Width SD 46.6 fl (35.1-43.9); Red Blood Count 4.85 M/mm3 (4.6-6.2); White Blood Count 6.3 K/mm3 (4.4-11.0)
[2024-12-26 13:51] LABS: AST(SGOT) 27 U/L (<=37); Alanine Aminotransfer ALT/SGPT 42 U/L (<=46); Albumin, Serum 4.4 g/dL (3.5-5.0); Alkaline Phosphatase 59 U/L (40-129); Anion Gap 12 (5-15); BUN 12 mg/dL (4-19); BUN/Creat Ratio 12.8 RATIO (10-20); CRP < 3.00 mg/L (0.0-3.0); Calcium,Total 9.8 mg/dL (7.6-11.0); Carbon Dioxide 27.8 mmol/L (21.0-32.0); Chloride 101 mmol/L (98-108); Globulin 2.6 g/dL (2.2-4.2); Glucose 95 mg/dL (70-99); Lipase 83 U/L (13-75); Potassium 3.2 mmol/L (3.3-5.1)
[2024-12-28 11:21] LABS: Ferritin 11 ng/mL (37-417); Iron 32 ug/dL (65-175); Iron Binding Capacity,Unsat 440 ug/dL (228-428)
[2024-12-28 14:12] LABS: Iron Binding Capacity,Total 472 ug/dL (250-450)
== END | disposition home or self-care (01) ==
LOC: LAB 11:29
PROVIDERS: PCP Family Medicine; Referring Provider Nurse Practitioner Acute Care; Visit Provider Nurse Practitioner Acute Care
DX: R74.8 Abnormal levels of other serum enzymes (principal); K50.813 Crohn's disease of both small and large intestine with fistula; D64.9 Anemia, unspecified; D84.9 Immunodeficiency, unspecified; K90.9 Intestinal malabsorption, unspecified; Z51.81 Encounter for therapeutic drug level monitoring
CPT/HCPCS: 36415; 80053; 82728; 83540; 83550; 83690; 85025; 86140

== ENCOUNTER → 2025-02-01 | Outpatient (CLI) | payer BC, SELFPAY ==
--- NOTE | 2025-02-01 14:35 | CT_ITS ---
PROCEDURE: CT/Abdomen/Pelvis WITH Contrast
[2025-02-01 16:01] LABS: Hematocrit 41.9 % (40-54); Hemoglobin 13.7 g/dL (13.0-16.5); Immature Granulocytes Count 0.010 X10^3/uL (0.0-0.0); Mean Corp Hgb Conc 32.7 g/dL (32-36); Mean Corpuscular Volume 81.5 fL (80-94); Mean Platelet Vol. 10.9 fl (6.2-12.0); NRBC Flagged by Analyzer 0 % (0-5); Platelet Count 172 K/mm3 (150-450); RBC Distribution Width CV 19.1 % (11.6-14.6); RBC Distribution Width SD 55.9 fl (35.1-43.9); Red Blood Count 5.14 M/mm3 (4.6-6.2); White Blood Count 5.6 K/mm3 (4.4-11.0)
[2025-02-01 16:33] LABS: BUN 12 mg/dL (4-19); Glucose 84 mg/dL (70-99)
[2025-02-01 16:34] LABS: AST(SGOT) 46 U/L (<=37); Alanine Aminotransfer ALT/SGPT 82 U/L (<=46); Albumin, Serum 4.4 g/dL (3.5-5.0); Alkaline Phosphatase 59 U/L (40-129); Anion Gap 11 (5-15); BUN/Creat Ratio 12.6 RATIO (10-20); Bilirubin, Direct 0.51 mg/dL (0.00-0.30); CRP < 3.00 mg/L (0.0-3.0); Calcium,Total 9.8 mg/dL (7.6-11.0); Carbon Dioxide 28.3 mmol/L (21.0-32.0); Chloride 99 mmol/L (98-108); Globulin 2.7 g/dL (2.2-4.2); Lipase 84 U/L (13-75); Magnesium 2.4 mg/dL (1.5-2.2); Potassium 3.8 mmol/L (3.3-5.1)
== END | disposition home or self-care (01) ==
PROVIDERS: PCP Family Medicine; Referring Provider Nurse Practitioner Acute Care; Visit Provider Nurse Practitioner Acute Care
DX: R74.8 Abnormal levels of other serum enzymes (principal); K50.90 Crohn's disease, unspecified, without complications; D64.9 Anemia, unspecified; E87.6 Hypokalemia; D84.9 Immunodeficiency, unspecified
CPT/HCPCS: 36415; 74177; 80048; 80076; 83690; 83735; 85025; 86140; Q9967

== ENCOUNTER 2025-02-20 05:33 | Day surgery (SDC) | payer BC, SELFPAY ==
--- NOTE | 2025-02-16 17:33 | PAT.ANE_ITS ---
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 When Was Last Pacemaker Check QUESTION #4 FULL TEXT: You/Your Family Experience fever (hyperthermia) with Anesthesia Last Oral Intake Last Oral intake: Last Oral Intake NPO since Meds taken in AM with sips of water? Meds patient instructed to take am of surgery PONV PONV - industrial plant custodian: PONV - industrial plant custodian Female No 02/16/25 11:40 HX of Motion Sickness No 02/16/25 11:40 HX of N/V After Surgery No 02/16/25 11:40 Non-Smoker Yes 02/16/25 11:40 Duration of Surgery greater No 02/16/25 11:40 than 60 minutes Number of Risk Factors 1 02/16/25 11:40 PONV Score Low Risk 02/16/25 11:40 Height & Weight Height & Weight: Anesthesia: Height & Weight Height 6 ft 1 in 07/14/24 06:12 Respiratory Assessment Respiratory Assessment - industrial plant custodian: Respiratory Tract Infection Hx - industrial plant custodian Hx Respiratory Tract Infection Yes: SORE THROAT 02/1602/16/25 11:40 STOP Sleep Apnea STOP Sleep Apnea - industrial plant custodian: STOP Sleep Apnea - industrial plant custodian Hx Hypertension Yes: CONTROLLED WITH MEDS 02/16/25 11:40 Hx Sleep Apnea No 02/16/25 11:40 CPAP BIPAP Do you snore loudly (louder No 02/16/25 11:40 than talking or can be heard Do you often feel tired/ No 02/16/25 11:40 fatigued/ sleepy during daytime? Has anyone observed you stop No 02/16/25 11:40 breathing during sleep? STOP Results Negative 02/16/25 11:40 QUESTION #5 FULL TEXT : Do you snore loudly (louder than talking or can be heard through closed doors)? 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 Specify any problems Hx of Preganancy in last 3 N/A 02/16/25 11:40 Months Nurse Filling Out Transfusion [email or web address] 02/16/25 11:40 & Questions: Date: 02/16/25 02/16/25 11:40 Time: 11:43 02/16/25 11:40 Patient unable to answer at this time (ie. confused, unrespo /Reproduction History /Reproductive History - industrial plant custodian: /Reproductive Hx- industrial plant custodian Hx Now Gestational Age (in weeks): EDC: Hx Hx Para Hx Section SAB Does the father of the baby or his family experience fever w Father of the baby Malignant Hypertension history comment PFSH Medical History Wears glasses Fatty liver Gastric reflux Wears contact lenses Alcohol use Prostate disease Dietary restriction History of diverticulitis History of Crohn's disease Non-smoker Hypertension Recurrent right inguinal hernia Home Medications Medication Instructions Recorded Last Taken Type multivitamin (Daily Multi-Vitamin 1 tab PO DAILY 07/0807/13/24 History tablet) amlodipine 5 mg tablet 5 mg PO BID 07/14/24 5 04:30 History losartan 50 mg-hydrochlorothiazide 1 tab PO BID 07/13/24 History 12.5 mg tablet (Hyzaar) Bacillus coagulans 250 million 1 tab PO DAILY 08/17/24 Unknown History cell chewable tablet (Digestive Advantage Probiotic Gummy) peg 3350-sod [id number] See Rx Instructions PO .COMPLEX #2 11/16/24 Unknown Rx 178.7-7.3-0.5-1.12-0.9 gram oral mL soln (Suflave) ferrous sulfate 325 mg (65 mg 325 mg PO QDAY #90 tabs 12/28/24 Unknown Rx iron) tablet,delayed release dicyclomine 10 mg capsule 10 mg PO TID PRN abdominal p ain, 02/07/25 Unknown Rx cramping #90 caps ascorbic acid (vitamin C) 500 mg 500 mg PO DAILY 02/16 Unknown History tablet (Vitamin C) omeprazole 40 mg capsule,delayed 40 mg PO QDAY PRN EARNESTINE D 02/16/25 Unknown History release Allergy/AdvReac Type Severity Reaction Status Date / Time lactose (lactose intolerant) Allergy Severe OTHER Verified 02/16/25 11:38 Family History Father Arthritis Surgical History History of bowel resection History of appendectomy History of vasectomy (~03/2018) Hernia Social History Smoking Status: Never smoker alcohol intake: current alcohol intake frequency: a few times a month Audit: Pertinent Findings Pertinent Findings EKG Perinent findings: March 22, 2024. Normal sinus rhythm. Compared to 08/17/2011 there is now T wave inversion evident in the inferior leads. Recommendation Anesthesia Recommendation Anesthesia recommendation: OPTIMIZED for anesthesia
[2025-02-20] VITALS (8 sets, daily range): BP systolic 102–119; BP diastolic 66–88; PULSE 60–72; RESP 16; TEMP 36.1–36.8; O2SAT 97–100; BMI 27.9
--- OUTSIDE RECORDS SUMMARY | 2025-02-20 05:37 | XMS RPT_ITS | CCD ---
Author Organization [facility] Care Team Providers Care Annealing Furnace Operator Name Role Phone BRITTANY SPENCE Unavailable Unav rose marie WARREN MD, JENNIFER Unavailable [place] AGUILAR Unavailable Unavailable ALICIA BELCHER Unavailable Malgorzata OLIVEIRA MD Unavailable [phone] SURGERY, GENERAL Unavailable Unavailable SIMRAN RAMAN, MICHELE Hoffman Unavailable TOSIN MUNOZ MD Unavailable Rachel Campos Unavailable Unavailable ROXANA RUEDA Unavailable Unavailable Prieto WARREN MD Unavailable FANI HARRIS Unavailable Unavailable Libertad Blank Unavailable Unavailable GERALDO GEE MD Unavailable [phone] Maurilio Gee Unavailable Unavailable Jodie JONES, Irma Unavailable Unavailable Jennifer Corley Unavailable Unavailable Unavailable Unavailable MORENITAOZZIE MANZANARES Attending Unava ilable MORENITAZOZIE MANZANARES Admitting Unava ilable JENNIFER WARREN Referring Unavailable JENNIFER WARREN Admitting Unavailable JENNIFER WARREN Primary Care Unavailable JENNIFER WARREN Attending Unavailable RACHID REYEZ MD Referring Unavailable AMAN DIOP Consulting Unavailable PROVIDER, UNKNOWN Consulting Unavailable PROVIDER, UNKNOWN Consulting Unavailable PROVIDER, UNKNOWN Consulting Unavailable JENNIFER WARREN Admitting Unavailable JENNIFER WARREN Primary Care Unavailable JENNIFER WARREN Attending Unavailable AMAN DIOP Consulting Unavailable PROVIDER, UNKNOWN Consulting Unavailable PROVIDER, UNKNOWN Consulting Unavailable PROVIDER, UNKNOWN Consulting Unavailable AMAN DIOP Consulting Unavailable ORION, JOSEFINA SERVICE SPRINKLER HELPER Admitting Unavailab le ORION, JOSEFINA SERVICE SPRINKLER HELPER Primary Care Unavailab le ORION, JOSEFINA SERVICE SPRINKLER HELPER Attending Unavailab le PROVIDER, UNKNOWN Consulting Unavailable PROVIDER, UNKNOWN Consulting Unavailable PROVIDER, UNKNOWN Consulting Unavailable Orion SLABBER-C, Josefina Attending Provider Dr. Jennifer Warern MD Referring Provider Care Physician, No Primary Primary Care Provider Unavailable Orion SLABBER-C, Josefina Referring Provider Zane RAMAN, Dr. Marion Primary Care Provider [phone] Care Physician, No Primary Referring Provider Un available AMAN DIOP MD Unavailable Rich PERRY, Dr. Thrasher Attending Provider Dr. Aman Diop MD Referring Provider Dr. Price Villanueva DO Other Provider [phone] ORION, JOSEFINA E Referring Unavailable ORION, JOSEFINA E Referring Unavailable ORION, JOSEFINA E Referring Unavailable ORION, JOSEFINA E Referring Unavailable ORION, JOSEFINA E Referring Unavailable Diop , Dr. Marion Primary Care Physician Zane RAMAN, Dr. Marion Referring Provider Orion SLABBER-C, Josefina Attending Physician [phone] Orion SLABBER-C, Josefina Referring Provider FANI FENG Consulting Unavailable physician, Non-Staff Attending Unavailable Orion, Josefina Attending Unavailable Diop, Aman Primary Care Unavailable Orion, Josefina Referring Unavailable FriendPrice Attending Unavailable Diop, Aman Referring Unavailable Diop, Aman Primary Care Unavailable Orion, Josefina Attending Unavailable Orion, Josefina Referring Unavailable Diop, Aman Primary Care Unavailable Orion, Josefina Attending Unavailable Diop, Aman Referring Unavailable Diop, Aman Primary Care Unavailable Friend, Price Attending Unavailable FriendNeidaPrice Consulting Unavailable Diop, Aman Referring Unavailable Diop, Aman Primary Care Unavailable Orion, Josefina Attending Unavailable Diop, Aman Primary Care Unavailable Diop, Aman Referring Unavailable WarrenJennifer Referring Unavailable Orion, Josefina Attending Unavailable Orion, Josefina Attending Unavailable Care Physician, No Primary Referring Unava ilable Diop, Aman Primary Care Unavailable Orion, Josefina Attending Unavailable Orion, Josefina Referring Unavailable Diop, Aman Primary Care Unavailable Orion, Josefina Attending Unavailable Orion, Josefina Referring Unavailable Diop, Aman Primary Care Unavailable Orion, Josefina Referring Unavailable Care Physician, No Primary Primary Care Unava ilable Orion, Josefina Attending Unavailable Orion, Josefina Referring Unavailable Care Physician, No Primary Primary Care Unava ilable Orion, Josefina Attending Unavailable Orion, Josefina Attending Unavailable Orion, Josefina Referring Unavailable Diop, Aman Primary Care Unavailable Friend, Price Attending Unavailable Diop, Aman Referring Unavailable Diop, Aman Primary Care Unavailable Orion, Josefina Attending Unavailable Orion, Josefina Referring Unavailable Diop, Aman Primary Care Unavailable Allergies Allergy Classification Reported Allergen(s) Allergy Type Date of Onset Reaction(s) Facility (4 sources) Lactose Drug Allergy 07-14-2024 OTHER [facility] (1 source) Lactose Drug Allergy 02-16-2025 [facility] Repository Medications Current Medications Medication Drug Class(es) Dates Sig (Normalized) Sig (Original) amLODIPine 5 mg oral tablet (13 sources) Dihydropyridine Calcium Channel Angela Start: 07-14-2024 amLODIPine 5 mg tablet ; 1 (one) Tablet two times daily for 30 days Quantity: 60 {Tablet} Refills: 11 Ordered: 19-Jul-2024 Start: 19-Jul-2024 Start: 07-08-2024 amLODIPine 5 m g tablet ; 1 (one) Tablet daily for 30 days Quantity: 30 {Tablet} Refills: 11 Ordered: 08-Jul-2024 MD AMAN DIOP Start: 08-Jul-2024 Ascorbic Acid (2 sources) Vitamin C Vitamin C ; 1 da sophia Comments: take with FeSo4 Comment on above: take with FeSo4 bacillus coagulans [id number] unt chewable tablet (9 sources) Start: 06-20-2024 End: 08-17-2024 Start: 06-20-2024 Bacillus Coagu lans (Digestive Advantage Prob Gummy) 250 million cell tablet,chewable Active 1 {tbl} PO ONCE June 20, 2024 12:00am budesonide 3 mg delayed release oral capsule (20 sources) Corticosteroid Start: 12-26-2024 take 2 capsules by m outh once daily in the morning Start: 07-08-2024 End: 12-26-2024 take 3 capsules by mouth once daily in the morning Budesonide 3 mg capsule,delayed,extend.release Discontinued 9 mg PO EVERY MORNING 100 1 December 01, 2024 10:25am December 26, 2024 10:40am Crohn's Start: 06-20-2024 End: 07-08-2024 take 2 capsules by mouth once daily in the morning Budesonide 3 mg capsule,delayed,extend.release Discontinued 6 mg PO EVERY MORNING 60 3 June 20, 2024 12:00am July 08, 2024 12:01pm Crohn's Start: 05-05-2024 End: 06-20-2024 take 3 capsules by mouth once daily in the morning Budesonide 3 mg capsule,delayed,extend.release Discontinued 9 mg PO daily 90 May 10, 2024 5:57pm June 20, 2024 3:53pm Take 3 capsules once every morning budesonide ER 9 mg capsule,extended release ; 1 every other day (9 mg) Comments: Gastro Stopping this med 01-12-25. budesonide ER 9 mg capsule,extended release ; 1 daily (9 mg) Comments: Gastro Comment on above: Gastro Gastro Stopping this med 01-12-25. ferrous sulfate 325 mg delay ed release oral tablet (4 sources) Start: 12-28-2024 Start: 12-28-2024 ferrous sulfate 325 mg (65 mg iron) tablet ; 1 daily (325 mg (65 mg iro) hydroCHLOROthiazide 12.5 mg / losartan potassium 50 mg oral tablet (13 sources) Thiazide Diuretic, Angiotensin 2 Receptor Angela Start: 07-19-2024 Hyzaar 50 mg-12.5 mg tablet ; one Tablet two times daily for 30 days Quantity: 60 {Tablet} Refills: 11 Ordered: 19-Jul-2024 Start: 19-Jul-2024 Comments: to replace lisinopril 20mg Start: 07-14-2024 Start: 07-08-2024 Hyzaar 50 mg-1 2.5 mg tablet ; one Tablet daily for 30 days Quantity: 30 {Tablet} Refills: 11 Ordered: 08-Jul-2024 MD AMAN DIOP Start: 08-Jul-2024 Comments: to replace lisinopril 20mg Comment on above: to replace lisinopri l 20mg inFLIXimab 100 mg injection (2 sources) Tumor Necrosis Factor Angela Remicade 100 mg intravenous solution ; IV every 8 weeks. (100 mg) Multivitamin (Daily Multi-Vitamin) tablet (4 sources) Start: 07-08-2024 Start: 07-08-2024 Multivitamin ( Daily Multi-Vitamin) tablet Active 1 {tbl} PO DAILY July 08, 2024 12:00am omeprazole 40 mg delayed release oral capsule (20 sources) Proton Pump Inhibitor Start: 08-17-2024 take 1 capsule by mouth once daily in the morning Start: 06-11-2012 End: 05-12-2013 OMEPRAZOLE, 20MG (Oral Capsu le Delayed Release) ; [address] two times daily, may decrease to 1 daily after 2 weeks for 0 days Quantity: 30 {Capsule_DR} Refills: 3 Ordered: 12-May-2013 Start: 11-Jun-2012 End: 12-May-2013 Status: Inactive Peg 3350-Sod Sulf,Chlr-Pot-M ag (4 sources) Start: 11-16-2024 Start: 05-05-2024 End: 06-13-2024 Peg 3350-Sod Sulf,Chlr-Pot-M ag (Suflave) 178.7-7.3-0.5 gram recon soln Discontinued 0 PO .COMPLEX 2 0 May 05, 2024 1:00am June 13, 2024 10:35am Take as directed for split dose bowel prep Probiotic 3 billion cell cap barry (12 sources) Probiotic 3 bill ion cell capsule ; 1 daily (3 billion cell) Comments: OTC Comment on above: OTC Completed/Discontinued Medications Medication Drug Class(es) Dates Sig (Normalized) Sig (Original) acetaminophen 300 mg / codeine phosphate 30 mg oral tablet (7 sources) Opioid Agonist Start: 04-02-2018 End: 04-15-2018 Acetaminophen-Code ine 300-30 mg tablet Discontinued 1 {tbl} PO EVERY 6 HOURS as needed for pain 10 April 02, 2018 1:00am April 15, 2018 4:19pm acetaminophen 325 mg / oxyCODONE hydrochloride 5 mg oral tablet (17 sources) Opioid Agonist Start: 06-03-2011 End: 06-11-2012 take 1 tablet by mouth every four hours as needed for pain PERCOCET, 5-325MG (Oral Tablet) ; 1 Tablet every four hours, as needed for severe pain for 0 days Quantity: 30 {Tablet} Refills: 0 Ordered: 11-Jun-2012 Start: 03-Jun-2011 End: 11-Jun-2012 Status: Inactive Comments: Medication taken as needed. Comment on above: Medication taken as needed. ALPRAZolam 0.25 mg oral tablet (17 sources) Benzodiazepine Start: 07-02-2020 End: 01-09-2025 Xanax 0.25 mg tablet ; 1 (one) Tablet two times daily as needed for 30 days Quantity: 60 {Tablet} Refills: 1 Ordered: 09-Jan-2025 Start: 02-Jul-2020 End: 09-Jan-2025 Status: Inactive Comments: Medication taken as needed. [facility] Comment on above: Medication taken as needed. [facility] amoxicillin 500 mg oral capsule (17 sources) Penicillin-class Antibacterial Start: 07-12-2016 End: 07-22-2016 take 1 capsule by mouth three times daily Amoxicillin 500 MG Oral Capsule ; 1 Capsule three times daily for 10 days Quantity: 30 {Capsule} Refills: 0 Ordered: 12-Jul-2016 Start: 12-Jul-2016 End: 22-Jul-2016 Status: Inactive amoxicillin 875 mg / clavulanate 125 mg oral tablet (17 sources) Penicillin-class Antibacterial Start: 05-12-2013 End: 07-12-2016 take 1 tablet by mouth twice daily Augmentin 875-125 MG Oral Tablet ; 1 (one) Tablet two times daily for 7 days Quantity: 14 {Tablet} Refills: 1 Ordered: 12-Jul-2016 Start: 12-May-2013 End: 12-Jul-2016 Status: Inactive atropine sulfate 0.0194 mg / hyoscyamine sulfate 0.1037 mg / PHENobarbital 16.2 mg / scopolamine hydrobromide 0.0065 mg oral tablet (17 sources) Anticholinergic, Cholinergic Muscarinic Antagonist Start: 06-30-2012 End: 07-07-2012 take 1 tablet by mouth every six hours as needed , 16.2MG (Oral Tablet) ; 1 Tablet every six hours, as needed for 7 days Quantity: 28 {Tablet} Refills: 0 Ordered: 07-Jul-2012 MD Prieto WARREN Start: 30-Jun-2012 End: 07-Jul-2012 Status: Inactive Comments: Medication taken as needed. Comment on above: Medication taken as needed. azaTHIOprine 50 mg oral tablet (2 sources) Purine Antimetabolite Start: 08-18-2024 End: 11-16-2024 take 1 tablet by mouth once daily Azathioprine (Imuran) 50 mg tablet Discontinued 150 mg PO daily 270 90 0 August 18, 2024 12:00am November 15, 2024 12:00am November 16, 2024 12:07am fistulizing crohns ciprofloxacin 500 mg oral tablet (20 sources) Quinolone Antimicrobial Start: 07-04-2024 End: 07-14-2024 ciprofloxacin 500 mg tablet ; 1 (one) Tablet two times daily for 7 days Quantity: 14 {Tablet} Refills: 0 Ordered: 11-Jul-2024 MD AMAN DIOP Start: 04-Jul-2024 End: 11-Jul-2024 Status: Inactive Start: 06-30-2012 End: 07-07-2012 take 1 tablet by mouth twice daily CIPROFLOXACIN HCL, 500MG (Oral Tablet) ; 1 (one) Tablet two times daily for 7 days Quantity: 14 {Tablet} Refills: 0 Ordered: 07-Jul-2012 MD Prieto WARREN Start: 30-Jun-2012 End: 07-Jul-2012 Status: Inactive 12 hr guaiFENesin 1200 mg / pseudoephedrine hydrochloride 120 mg extended release oral tablet (17 sources) alpha-Adrenergic Agonist Start: 04-15-2010 End: 04-25-2010 MUCINEX D, 120-1200MG (Oral Tablet Extended Release 12 Hour) ; 1 Tablet ER 12HR bid for 10 days Quantity: 18 {Tablet_ER_12HR} Refills: 0 Ordered: 29-Jun-2010 MD Malgorzata OLIVEIRA Start: 15-Apr-2010 End: 25-Apr-2010 Status: Inactive hydrOXYzine hydrochloride 25 mg oral tablet (17 sources) Antihistamine Start: 06-04-2020 End: 06-08-2020 take 1 tablet by mouth four times daily as needed hydrOXYzine HCl 25 MG Oral Tablet ; 1 (one) Tablet four times daily, as needed for 30 days Quantity: 120 {Tablet} Refills: 0 Ordered: 08-Jun-2020 ROBERT Feliciano Start: 04-Jun-2020 End: 08-Jun-2020 Status: Inactive Comments: Medication taken as needed. Comment on above: Medication taken as needed. lisinopril 20 mg oral tablet (16 sources) Angiotensin Converting Enzyme Inhibitor Start: 07-04-2024 End: 07-14-2024 lisinopriL 20 mg tablet ; one tablet daily for 30 days Quantity: 30 {Tablet} Refills: 5 Ordered: 13-Jul-2024 Start: 04-Jul-2024 End: 13-Jul-2024 Status: Discontinued LORazepam 2 mg oral tablet (7 sources) Benzodiazepine Start: 11-12-2017 End: 04-02-2018 take 1 tablet by mouth once Lorazepam (Ativan) 2 mg tablet Discontinued 2 mg PO ONCE 1 0 November 12, 2017 12:00am April 02, 2018 10:47am procedure take 45 min before procedure appointment metoclopramide 10 mg oral tablet (4 sources) Dopamine-2 Receptor Antagonist Start: 07-14-2024 End: 07-21-2024 take 1 tablet by mouth three times daily Metoclopramide Hcl 10 mg tablet Discontinued 10 mg PO THREE TIMES A DAY 21 7 0 July 14, 2024 12:00am July 20, 2024 12:00am July 21, 2024 12:08am nausea and vomiting metroNIDAZOLE 500 mg oral tablet (20 sources) Nitroimidazole Antimicrobial Start: 06-20-2024 End: 01-09-2025 take 1 tablet by mouth twice daily Metronidazole 500 mg tablet Discontinued 500 mg PO TWICE A DAY 60 1 June 20, 2024 12:00am August 17, 2024 11:34am fistulizing Crohn's Start: 05-05-2024 End: 06-13-2024 take 1 tablet by mouth twice daily Metronidazole 250 mg tablet Discontinued 250 mg PO TWICE A DAY 30 0 May 10, 2024 5:58pm June 13, 2024 10:35am Comment on above: Gastro Peg 3350-Sod Sulf,Chlr-Pot-M ag (Suflave) 178.7-7.3-0.5 gram recon soln (5 sources) Start: 05-05-2024 End: 06-13-2024 Peg 3350-Sod Sulf,Yhup-Khs-Psx (Suflave) 178.7-7.3-0.5 gram recon soln Discontinued 0 PO .COMPLEX 2 May 05, 2024 1:00am June 13, 2024 10:35am Take as directed for split dose bowel prep microencapsulated potassium chloride 20 meq extended release oral tablet (2 sources) Start: 09-26-2024 End: 09-29-2024 Potassium Chloride (Klor-Con M20) 20 mEq tablet,ER particles/crystals Discontinued 40 meq PO daily 6 3 0 September 26, 2024 12:00am September 28, 2024 12:00am September 29, 2024 12:07am take with a meal with a full glass of water Problems Active Problems Problem Classification Problem Date Documented Da te Episodic/Chronic Abdominal hernia (20 sources) Right inguinal hernia ; Translations: [Unilateral inguinal hernia, without obstruction or gangrene, not specified as recurrent] 07-02-2020 Episodic Comment on above: Recurrent. right Abdominal pain (20 sources) Abdominal pain; Translations: [Unspecified abdominal pain] Onset: 4 06-30-2012 Episodic Administrative/social admission (17 sources) Issue of repeat prescriptions 06-03-2011 Episodic Anal and rectal conditions (20 sources) Perirectal abscess; Translations: [Rectal abscess] 07-12-2016 Episodic Anxiety disorders (20 sources) Anxiety; Translations: [Anxiety disorder, unspecified] 07-02-2020 Chronic Appendicitis and other appendiceal conditions (3 sources) Acute appendicitis with perforation and localized peritonitis, with abscess; Translations: [Acute appendicitis with perforation, localized peritonitis, and gangrene, with abscess] Onset: 4 Episodic Deficiency and other anemia (2 sources) Anemia; Translations: [Anemia, unspecified] 12-27-2024 Episodic Diverticulosis and diverticulitis (2 sources) Diverticulitis of intestine, part unspecified, without perforation or abscess without bleeding; Translations: [Diverticulosis of large intestine without perforation or abscess without bleeding] Onset: 4 Chronic Essential hypertension (20 sources) Benign hypertension; Translations: [Essential (primary) hypertension] 07-04-2024 Chronic Fluid and electrolyte disorders (4 sources) Hypokalemia; Translations: [Hypokalemia] Onset: 4 09-26-2024 Episodic Gastritis and duodenitis (20 sources) Gastritis; Translations: [Gastritis, unspecified, without bleeding] 07-12-2016 Episodic Gastroduodenal ulcer (except hemorrhage) (17 sources) Peptic ulcer of unspecified site, unspecified as acute or chronic, without mention of hemorrhage or perforation, without mention of obstruction 06-11-2012 Chronic Gastrointestinal hemorrhage (20 sources) Lower gastrointestinal hemorrhage; Translations: [Gastrointestinal hemorrhage, unspecified] 06-23-2022 Episodic Immunity disorders (8 sources) Immunodeficiency, unspecified; Translations: [Patient immunocompromised] Onset: 5 08-18-2024 Chronic Inflammatory conditions of male genital organs (20 sources) Chronic prostatitis; Translations: [Chronic prostatitis] 07-04-2024 Chronic Intestinal obstruction without hernia (1 source) Ileus, unspecified; Translations: [Ileus, unspecified] Onset: 4 Episodic Noninfectious gastroenteritis (20 sources) Chronic colitis; Translations: [Noninfective gastroenteritis and colitis, unspecified] 07-02-2020 Episodic Other aftercare (20 sources) H/O: high risk medication; Translations: [Other long-term (current) drug therapy] 07-02-2020 Episodic Other aftercare (2 sources) Encounter for therapeutic drug level monitoring; Translations: [Encounter for therapeutic drug monitoring] Onset: 5 Episodic Other aftercare (4 sources) Patient encounter status; Translations: [Encounter for therapeutic drug level monitoring] 08-18-2024 Episodic Other and unspecified benign neoplasm (1 source) Polyp of colon; Translations: [Polyp of colon] Onset: 4 Episodic Other gastrointestinal disorders (20 sources) Irritable bowel syndrome with diarrhea; Translations: [Irritable bowel syndrome with diarrhea] 07-02-2020 Chronic Other gastrointestinal disorders (3 sources) Intestinal malabsorption, unspecified; 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)] Onset: 5 Chronic Other gastrointestinal disorders (1 source) Perforation of intestine (nontraumatic); Translations: [Perforation of intestine (nontraumatic)] Onset: 4 Episodic Other gastrointestinal disorders (20 sources) Diarrhea; Translations: [Diarrhea, unspecified] 05-04-2024 Episodic Other gastrointestinal disorders (4 sources) Diarrhea, unspecified; 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)] Onset: 5 Episodic Other infections; including parasitic (1 source) Other infectious disease; Translations: [Immunosuppression-rel ated infectious disease (HCC)] Onset: 5 Episodic Other liver diseases (4 sources) Abnormal levels of other serum enzymes; Translations: [Acid phosphatase elevated] Onset: 5 Episodic Other liver diseases (4 sources) High lipase level in serum; Translations: [Abnormal levels of other serum enzymes] 09-01-2024 Episodic Other upper respiratory infections (20 sources) Acute sinusitis; Translations: [Acute sinusitis, unspecified] 04-15-2010 Episodic Regional enteritis and ulcerative colitis (20 sources) Crohn's disease; Translations: [Crohn's disease, unspecified, without complications] Onset: 5 05-04-2024 Chronic Comment on above: 03/21/2024 explorato ry laparoscopy, lysis of dense adhesions, oversewing sigmoid enterotomy, ileocecal resection and side to side anastomosis. Pathology is revealing for ileocecal junction with active chronic inflammation with ulceration, full-thickness inflammation, fibrous serosal adhesions and fistula consistent with crohn's. Residual codes; unclassified (20 sources) Overweight; Translations: [Other specified conditions influencing health status] 07-02-2020 Episodic Unclassified (17 sources) !Patient notification of lab results - Dr. Oliveira. The test(s) that you had done were/was blood work (Your C-reactive protein (marker of inflammation) was elevated. We are working on setting up the consultation with the general surgeon to discuss the colonoscopy.). You should call our office if you have any questions. Please let us know if your symptoms do not improve. 06-26-2022 Unclassified (17 sources) Perirectal abcess - H/O perirectal abcess - OV 2013, referred to Dr. Munoz in 2013 but that evening went to ER and abcess drained. Did well until this week when at [place], hot and lots of walking, symptoms gradually returned. Pt also state upper abdominal pain similar to last time. This am woke with fever of 102.2. Relief with ibuprofen.. 07-12-2016 Unclassified (8 sources) Blood pressure check - The symptoms include headache and visual disturbances, while symptoms do not include dizziness, shortness of breath, edema, chest pain or syncope. Note for Blood pressure check-up": Blood Pressure has been running high since Surgery in [place]. - Also followed up with Gastro in [place] 07-04-2024 Unclassified (8 sources) [ADDITIONAL REASON] Prostatitis, Chronic - Symptoms do not include chronic pain. Note for "Chronic prostatitis": Dx showed up on the MRE - see Imaging report 07-04-2024 Unclassified (4 sources) Prostatitis, Chronic - Symptoms do not include chronic pain. Note for "Chronic prostatitis": Dx showed up on the MRE - see Imaging report 07-04-2024 Unclassified (4 sources) [ADDITIONAL REASON] Blood pressure check - The symptoms include headache and visual disturbances, while symptoms do not include dizziness, shortness of breath, edema, chest pain or syncope. Note for Blood pressure check-up": Blood Pressure has been running high since Surgery in [place]. - Also followed up with Gastro in [place] 07-04-2024 Unclassified (1 source) Elevation of levels of liver transaminase levels; Translations: [Elevation of levels of liver transaminase levels] Onset: Past or Other Problems Problem Classification Problem Date Documented Da te Episodic/Chronic Headache; including migraine (2 sources) Headache; including migraine 01-09-2025 Unclassified (17 sources) Abdominal Pain, Male - Note for "Abdominal pain": Pt. reports pain in abdomen, left lower quadrant starting last night. Had BM with bright red blood last night, and noted maroon colored blood this morning with BM. Pt. reports Hx IBS and states stools are usually loose consistency. Pt. also reports low grade temp x 24 hrs. (99's). 06-25-2022 Unclassified (17 sources) Anxiety - There has been no associated agitation. Note for "Anxiety": Hydroxyzine made pt excessively sleepy. Was switched to Xanax. Working well. Using it up to 3 x a week. 07-02-2020 Unclassified (17 sources) Anxiety - The anxiety has been occurring for 6 months. The anxiety is characterized as apprehension and nervousness. Note for "Anxiety": Had a promotion at work which has led to more stress. 06-04-2020 Unclassified (17 sources) Hernia, Inguinal - Note for "Inguinal hernia": pt c/o hernia and is interested in vasectomy. 10-26-2017 Unclassified (17 sources) !Patient notification of lab results 1 - Note for "!Patient notification of lab results 1": . 05-12-2013 Unclassified (17 sources) Skin Check - Symptoms include skin lesion (lump). The lesion is located on the right buttock. Onset was 1 week(s) ago. Lesion progression includes growing larger and becoming more painful. Note for "Skin check": . 05-12-2013 Unclassified (17 sources) Abdominal pain - The abdominal pain is described as sharp pain and stabbing. Note for "Abdominal pain": Was seen 06/11/12 and treated for gastritis and PUD. Has been treated in the past for IBS. Pain is lower abd and moves around. Worse after meals and at HS. 06-30-2012 Unclassified (17 sources) Abdominal pain - The abdominal pain has been occurring for 7 days. The abdominal pain is described as being located in the epigastrium. The symptoms are aggravated by meals (1/2 to 1 hour after eating). The symptoms have been associated with fever, while the symptoms have not been associated with diarrhea or vomiting. Note for "Abdominal pain": . 06-11-2012 Unclassified (17 sources) Inguinal Pain - Symptoms include inguinal pain and inguinal swelling, while symptoms do not include redness or warmth. Symptoms are located in the right groin region. The patient describes the pain as dull and aching. Onset was 2 week(s) ago. Note for "Inguinal Pain": Lifts heavy objects often. Family Hx of hernia. Has IBS. 04-15-2011 Unclassified (17 sources) Cough - The cough has been occurring for 1 week. The cough is characterized as productive of mucopurulent sputum. The symptoms have been associated with fever (for 1 day). 04-15-2010 Unclassified (1 source) [ADDITIONAL REASON] Follow up Tests results - Note for "Follow up to discuss laboratory test results": sees gastro and having low potassium levels. Pt is decreasing and this week stopping Budesonide. 01-09-2025 Unclassified (1 source) Follow up Tests results - Note for "Follow up to discuss laboratory test results": sees gastro and having low potassium levels. Pt is decreasing and this week stopping Budesonide. 01-09-2025 Results Test Name Value Interpretation Reference Range Facility MR/PATDigna 02-16-2025 MR/SARAH [facility] Medical Records Department [address] [place] [address] PAT - Anesthesia 02/16/25 1733 MR#: [id number] Acct: [id number] Name: JAIR WARREN Rep #: [id number] : 1985 39 From: Mk Lomeli MD PCP: Dr. 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 When Was Last Pacemaker Check QUESTION #4 FULL TEXT: You/Your Family Experience fever (hyperthermia) with Anesthesia Last Oral Intake Last Oral intake: Last Oral Intake NPO since Meds taken in AM with sips of water? Meds patient instructed to take am of surgery PONV PONV - terminal superintendent: PONV - terminal superintendent Female No 02/16/25 11:40 HX of Motion Sickness No 02/16/25 11:40 HX of N/V After Surgery No 02/16/25 11:40 Non-Smoker Yes 02/16/25 11:40 Duration of Surgery greater No 02/16/25 11:40 than 60 minutes Number of Risk Factors 1 02/16/25 11:40 PONV Score Low Risk 02/16/25 11:40 Height Weight Height Weight: Anesthesia: Height Weight Height 6 ft 1 in 07/14/24 06:12 Respiratory Assessment Respiratory Assessment - terminal superintendent: Respiratory Tract Infection Hx - terminal superintendent Hx Respiratory Tract Infection Yes: SORE THROAT 02/1602/16/25 11:40 STOP Sleep Apnea STOP Sleep Apnea - terminal superintendent: STOP Sleep Apnea - terminal superintendent Hx Hypertension Yes: CONTROLLED WITH MEDS 02/16/25 11:40 Hx Sleep Apnea No 02/16/25 11:40 CPAP BIPAP Do you snore loudly (louder No 02/16/25 11:40 than talking or can be heard Do you often feel tired/ No 02/16/25 11:40 fatigued/ sleepy during daytime? Has anyone observed you stop No 02/16/25 11:40 breathing during sleep? STOP Results Negative 02/16/25 11:40 QUESTION #5 FULL TEXT : Do you snore loudly (louder than talking or can be heard through closed doors)? 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 Specify any problems Hx of Preganancy in last 3 N/A 02/16/25 11:40 Months Nurse Filling Out Transfusion CPOWERS2 02/16/25 11:40 Questions: Date: 02/16/25 02/16/25 11:40 Time: 11:43 02/16/25 11:40 Patient unable to answer at this time (ie. confused, unrespo /Reproduction History /Reproductive History - terminal superintendent: /Reproductive Hx- terminal superintendent Hx Now Gestational Age (in weeks): EDC: Hx Hx Para Hx Section SAB Does the father of the baby or his family experience fever w Father of the baby Malignant Hypertension history comment PFSH Medical History Wears glasses Fatty liver Gastric reflux Wears contact lenses Alcohol use Prostate disease Dietary restriction History of diverticulitis History of Crohn's disease Non-smoker Hypertension Recurrent right inguinal hernia Home Medications ???Medication ???Instructions ???Recorded ???Last Taken ???Type multivitamin (Daily Multi-Vitamin 1 tab PO DAILY 07/08/24 07/13/24 History tablet) amlodipine 5 mg tablet 5 mg PO BID 07/14/24 07/14/24 04:3 0 History losartan 50 mg-hydrochlorothiazide 1 tab PO BID 07/14/24 07/13/24 H istory 12.5 mg tablet (Hyzaar) Bacillus coagulans 250 million 1 tab PO DAILY 08/17/24 Unknown Hi story cell chewable tablet (Digestive Advantage Probiotic Gummy) peg (more content not included)... Normal [facility] L3410.9992on 02-07-2025 [facility] Misc. COMMENT Normal . [facility] Comment on above: Order Comment: Comme nts: Infliximab Quantitation with Reflex to [id number] Quantitation SERFZ Result Comment: Test Ordered: [id number] Infliximab Drug + Antibody Infliximab Drug Level 92 ug/mL ES Reference Range: . Quantitation Limit: <0.4 ug/mL Results of 0.4 or higher indicate detection of infliximab. Comments: - The optimal drug concentration depends upon patient-specific factors including the disease and desired therapeutic endpoint. - Maintenance trough concentrations >=5 may be associated with higher remission rates.(1) - In severe CD, higher trough levels (>10) may be necessary to achieve fistula healing.(2) - In rheumatoid arthritis, EULAR responders had higher median trough levels (3.6) than non-responders (0.5).(3) - This assay measures the antibody-unbound (free) fraction of infliximab when serum anti-infliximab antibodies are present. Anti-Infliximab Antibody <22 ng/mL ES Reference Range: . Interpretation: The above result is an UNDETECTED Antibody titer. Quantitation Limit: <22 ng/mL. Results of 22 or higher indicate detection of anti- infliximab antibodies. 22 - 200 ng/mL: LOW titer 201 - 1,000 ng/mL: INTERMEDIATE titer 1,001 or greater ng/mL: HIGH titer Comments: - Anti-drug antibody levels should be interpreted in the context of the concomitant free drug trough concentration. - Low titer anti-drug antibodies may be transient while high titers are likely to be more consequential.(4-6) - Some immunogenicity is reversible. Elimination of intermediate titer (and even some high titer) anti-infliximab antibodies has been achieved with dose escalation and/or methotrexate or 6-MP.(7) - Maintenance of drug levels greater than 3 ug/mL may reduce the risk of developing anti-drug antibodies.(8) - This anti-infliximab antibody assay is drug tolerant, and all positive results are verified for anti-drug specificity by a confirmatory test. References: 1. Beatrice Woods, et al. AGA Review on TDM in IBD. Gastroenterol 2017;153:835-857. 2. Fabiana A, et al. Gastroenterol 2016;150(4):U657-J022. 3. Wolbink GJ, et al. Christiana Rheum Dis 2005;64:704-707. 4. Woody Whitehead, et al. Inflamm Bowel Dis 2012;18(12): 0998-3497. 5. Beatrice Woods, et al. Am J Gastroenterol 2013;108: 962-971. 6. Yanyessy H, et al. Clin Gastroenterol Hepatol 2015;13(3): 522-530. 7. Georgia A, et al. Gastroenterol 2019;156(6):S-617. 8. Brandse JF, et al. Gastroenterol 2016;150(4):S144. 9. Fay Moreau, et al. AAPS Journal 2016 DOI:10.1208/ [id number]. These tests were developed and their performance characteristics determined by [facility]. They have not been cleared or approved by the Food and Drug Administration. However, these electrochemiluminescence immunoassay (ECLIA) measurements of infliximab and anti-infliximab antibody (constituting DoseASSURE IFX) have been developed and validated in accordance with CLIA (Clinical Laboratory Improvement Amendments) and the FDA Guidance document, Assay Development and Validation for Immunogenicity Testing of Therapeutic Protein Products (2019). Results of a peer-reviewed methods comparison / validation of these assays have been published.(9) Performed at: [facility] [address] [place] [id number] Diorama Model Maker: Guido Verdugo MD, Phone: [phone] Performed at: [facility] [id number] Diorama Model Maker: Jae Jones PhD, Phone: [phone] Performed By: #### L 3410.9992 ####[facility] [address] [place], [place], [phone] Infliximab,Ab to Infliximab Qton 02-03-2025 Infliximab AB QNT <20 Normal () [facility] Comment on above: Result Comment: INTE RPRETIVE INFORMATION: Antibodies to Infliximab Quantitation Limit of Quantitation = 20 ng/mL. Results of 20 ng/mL or higher indicate the detection of antibodies against infliximab or an infliximab biosimilar. Interpret in the context of infliximab or infliximab biosimilar trough concentration to determine clinical significance and impact on treatment efficacy. This test was developed and its performance characteristics determined by [facility]. It has not been cleared or approved by the U.S. Food and Drug Administration. This test was performed in a CLIA-certified laboratory and is intended for clinical purposes. Performed By: [facility] [address] [place] [address] Commercial Loan Analyst: Bin Mae MD, PhD CLIA Number: [id number] Performed By: #### I FXPAN #### [facility] [address] [address] Infliximab QNT 14.6 ug/mL Normal () [facility] Comment on above: Result Comment: INTE RPRETIVE INFORMATION: Infliximab Quantitation Limit of Quantitation = 0.5 ug/mL. Results of 0.5 ug/mL or higher indicate the detection of infliximab or an infliximab biosimilar. Therapeutic level may vary depending on the disease being treated. Performed By: #### I FXPAN #### [facility] [address] [place], [place] [address] Abdomen/Pelvis WITH Contrast on 02-01-2025 Abdomen/Pelvis WITH Contrast [facility] Imaging Services [address] [place] [address] Abdomen/Pelvis WITH Contrast MR#: [id number] Acct: [id number] Name: JAIR WARREN Rep #: [id number] : 1985 M 39 From: Josue nj MD PCP: Dr. Aman Diop MD Status: REG CLI Study: Abdomen/Pelvis WITH Contrast Date of Exam: Exam# [id number] Ordering Dr: Josefina Sears PROCEDURE: ABDOMEN/PELVIS WITH CONTRAST 02/01/2025 REASON FOR EXAM: ABDOMINAL PAIN, DIARRHEA, CROHN'S TECHNIQUE: Procedure Code: CTABDPELW Modality: CT Procedure: ABDOMEN/PELVIS WITH CONTRAST Coronal and Sagittal reconstruction series were provided. CONTRAST: Isovue-300 VOLUME: 100 mL One or more dose reduction techniques were used (e.g., Automated exposure control, adjustment of the mA and/or kV according to patient size, use of iterative reconstruction technique. RADIATION DOSE SUMMARY: CTDlvol: 16.15 mGy DLP: 1084.5 mGycm COMPARISON: Prior MRI of the abdomen dated June 14, 2024. FINDINGS: Lung bases: The lung bases are clear. Liver: Diffuse fatty infiltration. Gallbladder: Unremarkable Spleen: Normal size. Pancreas: Normal size without evidence of mass surrounding inflammation or ductal dilation. Adrenals: Unremarkable Kidneys: Normal renal sizes. No hydronephrosis. Bladder: Unremarkable Bowel: No inflammatory changes seen. No evidence of stricture or small-bowel narrowing. Appendix: The appendix is not identified. There is no inflammatory process identified in the right lower quadrant to suggest appendicitis. Lymph nodes: Unremarkable. Vasculature: The abdominal aorta and IVC are normal. Peritoneum / Retroperitoneum: Small volume free fluid in the pelvis nonspecific and usually physiologic in a female patient of this age. Bones: Mild degenerative changes. CT/Abdomen/Pelvis WITH Contrast IMPRESSION: Diffuse fatty infiltration of the liver. Reading Location: [facility] CC: RENETTA Sears; Dr. Aman Diop MD [employer] Distribution Consultant: Signed Normal [facility] Basic Metabolic Profile (BMP )on 02-01-2025 BUN/CRE 12.6 RATIO Normal - [facility] Comment on above: Order Comment: Infli ximab Quantitation with Reflex to Antibodies Performed By: #### L 501.7770, L501.6710, L500.3400, L100.0100, L500.2500, L501.5200 ####[facility] [address] [place], [address] Calcium [Mass/Vol] 9.8 mg/dL Normal 7.6-11.0 [facility] Work Phone: Comment on above: Order Comment: Infli ximab Quantitation with Reflex to Antibodies Performed By: #### L 501.2450, L501.6710, L500.3400, L100.0100, L500.2500, L501.5200 ####[facility] [address] [place], [place], [phone] Chloride [Moles/Vol] 99 mmol/L Normal 98-108 [facility]; [facility] Work Phone: Comment on above: Order Comment: Infli ximab Quantitation with Reflex to Antibodies Performed By: #### L 501.2450, L501.6710, L500.3400, L100.0100, L500.2500, L501.5200 ####[facility] [address] [place], [place], [phone] CO2 [Moles/Vol] 28.3 mmol/L Normal 21.0-32.0 [facility]; [facility] Work Phone: Comment on above: Order Comment: Infli ximab Quantitation with Reflex to Antibodies Performed By: #### L 501.2450, L501.6710, L500.3400, L100.0100, L500.2500, L501.5200 ####[facility] [address] [place], [place], [phone] GAP 11 Normal 5-15 [facility]; [facility] Work Phone: Comment on above: Order Comment: Infli ximab Quantitation with Reflex to Antibodies Performed By: #### L 501.2450, L501.6710, L500.3400, L100.0100, L500.2500, L501.5200 ####[facility] [address] [place], [address] GFR/1.73 sq M.predicted among non-blacks MDRD (S/P/Bld) [Vol rate/Area] 109 mL/min/{1.73_m2} Normal >60 [facility]; [facility] Work Phone: Comment on above: Order Comment: Infli ximab Quantitation with Reflex to Antibodies Result Comment: mL/m in/1.73m2 CKD-EPI Creatinine Equation (2020) Performed By: #### L 501.2450, L501.6710, L500.3400, L100.0100, L500.2500, L501.5200 ####[facility] [address] [place], [address] Potassium [Moles/Vol] 3.8 mmol/L Normal 3.3-5.1 [facility]; [facility] Work Phone: Comment on above: Order Comment: Infli ximab Quantitation with Reflex to Antibodies Performed By: #### L 501.2450, L501.6710, L500.3400, L100.0100, L500.2500, L501.5200 ####[facility] [address] [place], [address] Sodium [Moles/Vol] 137 mmol/L Normal 133-145 [facility] Work Phone: Comment on above: Order Comment: Infli ximab Quantitation with Reflex to Antibodies Performed By: #### L 501.2450, L501.6710, L500.3400, L100.0100, L500.2500, L501.5200 ####[facility] [address] [place], [place], [phone] Creatinine [Mass/Vol] 0.92 mg/dL Normal 0.70-1.20 [facility]; [facility] Work Phone: Comment on above: Order Comment: Infli ximab Quantitation with Reflex to Antibodies Performed By: #### L 501.2450, L501.6710, L500.3400, L100.0100, L500.2500, L501.5200 ####[facility] [address] [place], [place], [phone] Glucose [Mass/Vol] 84 mg/dL Normal 70-99 [facility] Work Phone: Comment on above: Order Comment: Infli ximab Quantitation with Reflex to Antibodies Performed By: #### L 501.2450, L501.6710, L500.3400, L100.0100, L500.2500, L501.5200 ####[facility] [address] [facility] [address] [place], [place], [phone] Urea nitrogen [Mass/Vol] 12 mg/dL Normal 4-19 [facility]; [facility] Work Phone: Comment on above: Order Comment: Infli ximab Quantitation with Reflex to Antibodies Performed By: #### L 501.2450, L501.6710, L500.3400, L100.0100, L500.2500, L501.5200 ####[facility] [address] [place], [place], [phone] CBC W/Diff, Automatedon 10-2 -2024 Absolute Lymph 0.94 X10 3/uL Normal 0.83-4.51 [facility] Comment on above: Performed By: #### L 501.2450, L501.6710, L500.3400, L100.0100, L500.2500, L501.5200 ####[facility] [address] [place], [address] Absolute Neut 3.7 X10 3/uL Normal 2.0-7.7 [facility] Comment on above: Performed By: #### L 501.2450, L501.6710, L500.3400, L100.0100, L500.2500, L501.5200 ####[facility] [address] [place], [place], [phone] Basophils/100 WBC (Bld) 0.9 % Normal 0-1 [facility] Work Phone: Comment on above: Performed By: #### L 501.2450, L501.6710, L500.3400, L100.0100, L500.2500, L501.5200 ####[facility] [address] [place], [place], [phone]) Eosinophils/100 WBC (Bld) 3.9 % Normal 0-5 [facility] Work Phone: Comment on above: Performed By: #### L 501.2450, L501.6710, L500.3400, L100.0100, L500.2500, L501.5200 ####[facility] [address] [place], [place], [phone] Erythrocyte distribution width (RBC) [Ratio] 19.1 % High 11.6-14.6 [facility] Work Phone: Comment on above: Performed By: #### L 501.2450, L501.6710, L500.3400, L100.0100, L500.2500, L501.5200 ####[facility] [address] [facility]. [place], [place], [phone] Hematocrit (Bld) [Volume fraction] 41.9 % Normal 40-54 [facility]; [facility] Work Phone: Comment on above: Performed By: #### L 501.2450, L501.6710, L500.3400, L100.0100, L500.2500, L501.5200 ####[facility] [address] [facility] [place], [place], [phone] Hemoglobin (Bld) [Mass/Vol] 13.7 g/dL Normal 13.0-16.5 [facility]; [facility] Work Phone: Comment on above: Performed By: #### L 501.2450, L501.6710, L500.3400, L100.0100, L500.2500, L501.5200 ####[facility] [address] [facility] [address] [place], [place], [phone] IG% 0.200 Normal 0.0-0.9 [facility]; [facility] Work Phone: Comment on above: Result Comment: IG% - Immature Granulocytes (promyelocytes, myelocytes and metamyelocytes) > 1% indicates that a LEFT SHIFT is Present. Performed By: #### L 501.2450, L501.6710, L500.3400, L100.0100, L500.2500, L501.5200 ####[facility] [address] [facility]. [place], [place], [phone] Lymphocytes/100 WBC (Bld) 16.8 % Low 19-41 [facility]; [facility] Work Phone: Comment on above: Performed By: #### L 501.2450, L501.6710, L500.3400, L100.0100, L500.2500, L501.5200 ####[facility] [address] [place], [place], [phone] MCH (RBC) [Entitic mass] 26.7 pg Low 27.0-32.0 [facility]; [facility] Work Phone: Comment on above: Performed By: #### L 501.2450, L501.6710, L500.3400, L100.0100, L500.2500, L501.5200 ####[facility] [address] [facility] [place], [place], [phone] MCHC (RBC) [Mass/Vol] 32.7 g/dL Normal 32-36 E[facility]; [facility] Work Phone: Comment on above: Performed By: #### L 501.2450, L501.6710, L500.3400, L100.0100, L500.2500, L501.5200 ####[facility] [address] [place], [place], [phone] MCV (RBC) [Entitic vol] 81.5 fL Normal 80-94 [facility]; [facility] Work Phone: Comment on above: Performed By: #### L 501.2450, L501.6710, L500.3400, L100.0100, L500.2500, L501.5200 ####[facility] [address] [place], [place], [phone]([phone]) Monocytes/100 WBC (Bld) 11.3 % High 0-10 [facility]; [facility] Work Phone: Comment on above: Performed By: #### L 501.2450, L501.6710, L500.3400, L100.0100, L500.2500, L501.5200 ####[facility] [address] [place], [place], [phone]) Neutrophils/100 WBC (Bld) 66.9 % Normal 47-70 [facility]; [facility] Work Phone: Comment on above: Performed By: #### L 501.2450, L501.6710, L500.3400, L100.0100, L500.2500, L501.5200 ####[facility] [address] [place], [place], [phone]) Nucleated RBC (Bld) [#/Vol] 0 10*3/uL Normal 0-5 [facility]; [facility] Work Phone: Comment on above: Performed By: #### L 501.2450, L501.6710, L500.3400, L100.0100, L500.2500, L501.5200 ####[facility] [address] [place], [place], [phone]) Platelet mean volume (Bld) [Entitic vol] 10.9 fL Normal 6.2-12.0 [facility]; [facility] Work Phone: Comment on above: Performed By: #### L 501.2450, L501.6710, L500.3400, L100.0100, L500.2500, L501.5200 ####[facility] [address] [place], [place], [phone]) Platelets (Bld) [#/Vol] 172 10*3/uL Normal 150-450 [facility]; [facility] Work Phone: Comment on above: Performed By: #### L 501.2450, L501.6710, L500.3400, L100.0100, L500.2500, L501.5200 ####[facility] [address] [place], [place], [phone] RBC (Bld) [#/Vol] 5.14 10*6/uL Normal 4.6-6.2 [facility]; [facility] Work Phone: Comment on above: Performed By: #### L 501.2450, L501.6710, L500.3400, L100.0100, L500.2500, L501.5200 ####[facility] [address] [facility]. [place], [place], [phone] RDW SD 55.9 fL High 35.1-43.9 [facility]; [facility] Work Phone: Comment on above: Performed By: #### L 501.2450, L501.6710, L500.3400, L100.0100, L500.2500, L501.5200 ####[facility] [address] [facility]. [place], [place], [phone] WBC (Bld) [#/Vol] 5.6 10*3/uL Normal 4.4-11.0 [facility]; [facility] Work Phone: Comment on above: Performed By: #### L 501.2450, L501.6710, L500.3400, L100.0100, L500.2500, L501.5200 ####[facility] [address] [facility] [facility] [place], [place], [id number] CRPon 02-01-2025 C-REACTIVE PROT < 3.00 Normal 0.0-3.0 [facility]3]; [facility] Work Phone: Comment on above: Performed By: #### L 501.2450, L500.4050, L501.6710, L100.0100 #### [facility] [address] [place], [place], [id number] Lipaseon 02-01-2025 Lipase [Catalytic activity/Vol] 84 U/L High 13-75 [facility]; [facility] Work Phone: Comment on above: Result Comment: Chris slater note: LIPASE revised reference range effective 22. New Lipase methodology. Expected to produce lower values than the previous assay method. NEW Reference Range: 13 - 75 U/L Performed By: #### L 501.2450, L501.6710, L500.3400, L100.0100, L500.2500, L501.5200 ####[facility] [address] [place], [address] Liver Profileon 02-01-2025 Albumin [Mass/Vol] 4.4 g/dL Normal 3.5-5.0 [facility] Work Phone: Comment on above: Order Comment: Infli ximab Quantitation with Reflex to Antibodies Performed By: #### L 501.2450, L501.6710, L500.3400, L100.0100, L500.2500, L501.5200 ####[facility] [address] [place], [place], [id number] ALK PHOS 59 U/L Normal 40-129 [facility]; [facility] Work Phone: Comment on above: Order Comment: Infli ximab Quantitation with Reflex to Antibodies Performed By: #### L 501.2450, L501.6710, L500.3400, L100.0100, L500.2500, L501.5200 ####[facility] [address] [place], [place], [phone] ALT [Catalytic activity/Vol] 82 U/L High <=46 [facility].; [facility], [facility]. Work Phone: Comment on above: Order Comment: Infli ximab Quantitation with Reflex to Antibodies Performed By: #### L 501.2450, L501.6710, L500.3400, L100.0100, L500.2500, L501.5200 ####[facility] [address] [place], [place], [phone] AST [Catalytic activity/Vol] 46 U/L High <=37 [facility].; [facility], [facility]. Work Phone: Comment on above: Order Comment: Infli ximab Quantitation with Reflex to Antibodies Performed By: #### L 501.2450, L501.6710, L500.3400, L100.0100, L500.2500, L501.5200 ####[facility] [address] [place], [place], [phone] Bilirubin [Mass/Vol] 1.55 mg/dL High 0.00-1.30 [facility].; [facility], [facility]. Work Phone: Comment on above: Order Comment: Infli ximab Quantitation with Reflex to Antibodies Performed By: #### L 501.2450, L501.6710, L500.3400, L100.0100, L500.2500, L501.5200 ####[facility] [address] [place], [place], [phone] Bilirubin.direct [Mass/Vol] 0.51 mg/dL High 0.00-0.30 [facility].; [facility] Work Phone: Comment on above: Order Comment: Infli ximab Quantitation with Reflex to Antibodies Performed By: #### L 501.2450, L501.6710, L500.3400, L100.0100, L500.2500, L501.5200 ####[facility] [address] [place], [place], [phone] Globulin (S) [Mass/Vol] 2.7 g/dL Normal 2.2-4.2 [facility].; [facility] Work Phone: Comment on above: Order Comment: Infli ximab Quantitation with Reflex to Antibodies Performed By: #### L 501.2450, L501.6710, L500.3400, L100.0100, L500.2500, L501.5200 ####[facility] [address] [place], [place], [phone] PROT 7.2 g/dL Normal 5.9-8.4 [facility]; [facility] Work Phone: Comment on above: Order Comment: Infli ximab Quantitation with Reflex to Antibodies Performed By: #### L 501.2450, L501.6710, L500.3400, L100.0100, L500.2500, L501.5200 ####[facility] [address] [place], [place], [phone] Magnesiumon 02-01-2025 Magnesium [Mass/Vol] 2.4 mg/dL High 1.5-2.2 [facility]; [facility] Work Phone: Comment on above: Performed By: #### L 501.2450, L500.4050, L501.6710, L100.0100 #### [facility] [address] [place], [place], [phone] No Panel Informationon 02-01 Absolute Lymph 0.94 {X10_3/uL} Normal 0.83 - 4.5 1 {X10_3/uL} [facility]; [facility] Work Phone: Absolute Neut 3.7 {X10_3/uL} Normal 2.0 - 7.7 {X10_3/uL} [facility]; [facility] Work Phone: BUN/CRE 12.6 {RATIO} Normal 10 - 20 {RATIO} [facility]; [facility] Work Phone: Ferritinon 12-28-2024 Ferritin [Mass/Vol] 11 ng/mL Low 37-417 [facility] Comment on above: Performed By: #### L 503.6030, L503.6550 #### [facility] [address] [place], [place], [id number] Iron+Iron Binding Capacityon 12-28-2024 TIBC 472 ug/dL High 250-450 [facility] Comment on above: Performed By: #### L 503.6030, L503.6550 #### [facility] [address] [place], [place], [phone] Absolute lymphocyte countOrd ered By: Josefina Sears on 12-26-2024 Lymphocytes Auto (Unsp spec) [#/Vol] 0.61 10*3/uL Low 0.83-4.51 [facility] Absolute neutrophil countOrd ered By: Josefina Sears on 12-26-2024 Neutrophils (Bld) [#/Vol] 5.2 10*3/uL 2.0-7.7 [facility] Anion gap in Serum or Plasma Ordered By: Josefina Sears on 12-26-2024 Anion gap [Moles/Vol] 12 mmol/L 5-15 [facility] Automated blood erythrocyte countOrdered By: Josefina Sears on 12-26-2024 RBC (Bld) [#/Vol] 4.85 10*6/uL Normal 4.6 - 6.2 {M/mm3} [facility] Automated blood hematocrit ( percentage)Ordered By: Josefina Porrasony on 12-26-2024 Hematocrit (Bld) [Volume fraction] 38.0 % Abnormal 40 - 54 [facility] Automated lymphocyte count a s percentage of total leukocytesOrdered By: Josefina Orion on 12-26-2024 Lymphocytes/100 WBC Auto (Unsp spec) 9.7 % Low 19- [facility] BUN/creatinine ratioOrdered By: Josefina Orion on 12-26-2024 Urea nitrogen/Creatinine [Mass ratio] 12.8 mg/mg 10- [facility] Basophil percentageOrdered B y: Joseifna Sears on 12-26-2024 Basophils/100 WBC (Bld) 0.5 % Normal 0 - 1 [facility] Bilirubin, totalOrdered By: Josefina Sears on 12-26-2024 Bilirubin [Mass/Vol] 1.02 mg/dL Normal 0.00 - 1.30 mg/dL [facility] CBC W/Diff, Automatedon 12-06 Absolute Lymph 0.61 X10 3/uL Low 0.83-4.51 [facility] Comment on above: Performed By: #### L 501.2450, L500.4050, L501.6710, L100.0100 #### [facility] [address] [place], [address] Absolute Neut 5.2 X10 3/uL Normal 2.0-7.7 [facility] Comment on above: Performed By: #### L 501.2450, L500.4050, L501.6710, L100.0100 #### [facility] [address] [place], [address] Basophils/100 WBC (Bld) 0.5 % Normal 0-1 [facility] Comment on above: Performed By: #### L 501.2450, L500.4050, L501.6710, L100.0100 #### [facility] [address] [place], [address] Eosinophils/100 WBC (Bld) 1.0 % Normal 0-5 [facility] Comment on above: Performed By: #### L 501.2450, L500.4050, L501.6710, L100.0100 #### [facility] [address] [place], [address] Erythrocyte distribution width (RBC) [Ratio] 16.4 % High 11.6-14.6 [facility] Comment on above: Performed By: #### L 501.2450, L500.4050, L501.6710, L100.0100 #### [facility] [address] [place], [address] Hematocrit (Bld) [Volume fraction] 38.0 % Low 40-54 [facility] Comment on above: Performed By: #### L 501.2450, L500.4050, L501.6710, L100.0100 #### [facility] [address] [place], [address] Hemoglobin (Bld) [Mass/Vol] 12.1 g/dL Low 13.0-16.5 [facility] Comment on above: Performed By: #### L 501.2450, L500.4050, L501.6710, L100.0100 #### [facility] [address] [place], [address] IG% 0.500 Normal 0.0-0.9 [facility] Work Phone: Comment on above: Result Comment: IG% - Immature Granulocytes (promyelocytes, myelocytes and metamyelocytes) > 1% indicates that a LEFT SHIFT is Present. Performed By: #### L 501.2450, L500.4050, L501.6710, L100.0100 #### [facility] [address] [place], [id number] Lymphocytes/100 WBC (Bld) 9.7 % Low 19-41 [facility]; [facility] Work Phone: Comment on above: Performed By: #### L 501.2450, L500.4050, L501.6710, L100.0100 #### [facility] [address] [place], [address] MCH (RBC) [Entitic mass] 24.9 pg Low 27.0-32.0 [facility] Comment on above: Performed By: #### L 501.2450, L500.4050, L501.6710, L100.0100 #### [facility] [address] [place], [address] MCHC (RBC) [Mass/Vol] 31.8 g/dL Low 32-36 [facility] Comment on above: Performed By: #### L 501.2450, L500.4050, L501.6710, L100.0100 #### [facility] [address] [place], [address] MCV (RBC) [Entitic vol] 78.4 fL Low 80-94 [facility] Comment on above: Performed By: #### L 501.2450, L500.4050, L501.6710, L100.0100 #### [facility] [address] [place], [address] Monocytes/100 WBC (Bld) 6.8 % Normal 0-10 [facility] Comment on above: Performed By: #### L 501.2450, L500.4050, L501.6710, L100.0100 #### [facility] [address] [place], [address] Neutrophils/100 WBC (Bld) 81.5 % High 47-70 [facility] Comment on above: Performed By: #### L 501.2450, L500.4050, L501.6710, L100.0100 #### [facility] [address] [place], [id number] Nucleated RBC (Bld) [#/Vol] 0 10*3/uL Normal 0-5 [facility]; [facility] Work Phone: Comment on above: Performed By: #### L 501.2450, L500.4050, L501.6710, L100.0100 #### [facility] [address] [place], [id number] Platelet mean volume (Bld) [Entitic vol] 11.7 fL Normal 6.2-12.0 [facility] Comment on above: Performed By: #### L 501.2450, L500.4050, L501.6710, L100.0100 #### [facility] [address] [place], [address] Platelets (Bld) [#/Vol] 185 10*3/uL Normal 150-450 [facility] Comment on above: Performed By: #### L 501.2450, L500.4050, L501.6710, L100.0100 #### [facility] [address] [place], [address] RBC (Bld) [#/Vol] 4.85 10*6/uL Normal 4.6-6.2 [facility] Comment on above: Performed By: #### L 501.2450, L500.4050, L501.6710, L100.0100 #### [facility] [address] [place], [address] RDW SD 46.6 fL High 35.1-43.9 [facility]; [facility] Work Phone: Comment on above: Performed By: #### L 501.2450, L500.4050, L501.6710, L100.0100 #### [facility] [address] [place], [place], [address] WBC (Bld) [#/Vol] 6.3 10*3/uL Normal 4.4-11.0 [facility] Comment on above: Performed By: #### L 501.2450, L500.4050, L501.6710, L100.0100 #### [facility] [address] [place], [place], [id number] CRPon 12-26-2024 C-REACTIVE PROT < 3.00 Normal 0.0-3.0 [facility])[3]; [facility] Work Phone: Comment on above: Performed By: #### L 501.2450, L500.4050, L501.6710, L100.0100 #### [facility] [address] [place], [place], [phone] Carbon dioxide, total [Moles /volume] in Central venous bloodOrdered By: Josefina Sears on 12-26-2024 CO2 [Moles/Vol] 27.8 mmol/L Normal 21.0 - 32.0 mmol/L [facility] Chloride assayOrdered By: Leo Sears on 12-26-2024 Chloride [Moles/Vol] 101 mmol/L Normal 98 - 10 8 mmol/L [facility] Comprehensive Metabolic Prof ilon 12-26-2024 Albumin [Mass/Vol] 4.4 g/dL Normal 3.5-5.0 [facility] Comment on above: Performed By: #### L 501.2450, L500.4050, L501.6710, L100.0100 #### [facility] [address] [place], [place], [id number] Albumin/Globulin [Mass ratio] 1.7 {ratio} Normal 0.9-2.4 [facility] Comment on above: Performed By: #### L 501.2450, L500.4050, L501.6710, L100.0100 #### [facility] [address] [place], [address] ALK PHOS 59 U/L Normal 40-129 [facility]; [facility] Work Phone: Comment on above: Performed By: #### L 501.2450, L500.4050, L501.6710, L100.0100 #### [facility] [address] [place], [id number] ALT [Catalytic activity/Vol] 42 U/L Normal <=46 [facility] Comment on above: Performed By: #### L 501.2450, L500.4050, L501.6710, L100.0100 #### [facility] [address] [place], [address] AST [Catalytic activity/Vol] 27 U/L Normal <=37 [facility] Comment on above: Performed By: #### L 501.2450, L500.4050, L501.6710, L100.0100 #### [facility] [address] [place], [address] Bilirubin [Mass/Vol] 1.02 mg/dL Normal 0.00-1.30 [facility] Comment on above: Performed By: #### L 501.2450, L500.4050, L501.6710, L100.0100 #### [facility] [address] [place], [address] BUN/CRE 12.8 RATIO Normal 10-20 [facility] Comment on above: Performed By: #### L 501.2450, L500.4050, L501.6710, L100.0100 #### [facility] [address] [place], [address] Calcium [Mass/Vol] 9.8 mg/dL Normal 7.6-11.0 [facility] Comment on above: Performed By: #### L 501.2450, L500.4050, L501.6710, L100.0100 #### [facility] [address] [place], [address] Chloride [Moles/Vol] 101 mmol/L Normal 98-108 [facility] Comment on above: Performed By: #### L 501.2450, L500.4050, L501.6710, L100.0100 #### [facility] [address] [place], [address] CO2 [Moles/Vol] 27.8 mmol/L Normal 21.0-32.0 [facility] Comment on above: Performed By: #### L 501.2450, L500.4050, L501.6710, L100.0100 #### [facility] [address] [place], [address] Creatinine [Mass/Vol] 0.91 mg/dL Normal 0.70-1.20 [facility] Comment on above: Performed By: #### L 501.2450, L500.4050, L501.6710, L100.0100 #### [facility] [address] [place], [address] GAP 12 Normal 5-15 [facility] Work Phone: Comment on above: Performed By: #### L 501.2450, L500.4050, L501.6710, L100.0100 #### [facility] [address] [place], [address] GFR/1.73 sq M.predicted among non-blacks MDRD (S/P/Bld) [Vol rate/Area] 110 mL/min/{1.73_m2} Normal >60 [facility] Comment on above: Result Comment: mL/m in/1.73m2 CKD-EPI Creatinine Equation (2020) Performed By: #### L 501.2450, L500.4050, L501.6710, L100.0100 #### [facility] [address] [place], [address] Globulin (S) [Mass/Vol] 2.6 g/dL Normal 2.2-4.2 [facility] Comment on above: Performed By: #### L 501.2450, L500.4050, L501.6710, L100.0100 #### [facility] [address] [place], [address] Glucose [Mass/Vol] 95 mg/dL Normal 70-99 [facility] Comment on above: Performed By: #### L 501.2450, L500.4050, L501.6710, L100.0100 #### [facility] [address] [place], [address] Potassium [Moles/Vol] 3.2 mmol/L Low 3.3-5.1 [facility] Work Phone: Comment on above: Performed By: #### L 501.2450, L500.4050, L501.6710, L100.0100 #### [facility] [address] [place], [address] Sodium [Moles/Vol] 140 mmol/L Normal 133-145 [facility] Comment on above: Performed By: #### L 501.2450, L500.4050, L501.6710, L100.0100 #### [facility] [address] [place], [id number] T PROT 7.0 g/dL Normal 5.9-8.4 [facility]. Work Phone: Comment on above: Performed By: #### L 501.2450, L500.4050, L501.6710, L100.0100 #### [facility] [address] [place], [place], [id number] Urea nitrogen [Mass/Vol] 12 mg/dL Normal 4-19 [facility] Comment on above: Performed By: #### L 501.2450, L500.4050, L501.6710, L100.0100 #### [facility] [address] [place], [place], [id number] Eosinophil percentageOrdered By: Josefina Sears on 12-26-2024 Eosinophils/100 WBC (Bld) 1.0 % Normal 0 - 5 [facility] Erythrocyte distribution wid th ratioOrdered By: Josefina Sears on 12-26-2024 Erythrocyte distribution width (RBC) [Ratio] 16.4 % Abnormal 11.6 - 14.6 [facility] Erythrocyte distribution wid th standard deviationOrdered By: Josefina Sears on 12-26-2024 Erythrocyte distribution width (RBC) [Ratio] 46.6 fl High 35.1-43.9 [facility] Gastroenterology Visit Repor ton 12-26-2024 Gastroenterology Visit Report [facility] [address] [place] [address] OFFICE VISIT Date of Service: 12/26/24 MR#: [id number] Acct: [id number] Name: JAIR WARREN Rep #: [id number] : 1985 Provider: RENETTA ocampo Age/Sex: 39/M Location: [facility] Status: Signed Intake Vital Signs 07/14/24 06:12 12/26/24 10:48 Height 6 ft 1 in 6 ft 1 in Weight: 209 lb 8 oz BMI 27.6 BP 120/81 H Respiration 16 Pulse 66 Temp 98.4 F Temp Source Temporal Pulse Oximetry (%) 98 Oxygen Delivery Method room air Intake Visit Reasons: 4 M FU Crohn's Disease Chief Complaint: f/u Crohn's Circulation Manager Required: No Accompanied by: Is patient in pain?: No Allergies lactose (lactose intolerant) Allergy (Severe, Verified 12/26/24 10:49) OTHER Medications ???Medication ???Instructions ???Recorded ???Confirmed ???Type multivitamin (Daily Multi-Vitamin 1 tab PO DAILY 07/08/24 12/26/24 History tablet) amlodipine 5 mg tablet 5 mg PO BID 07/14/24 12/26/24 Hist ory losartan 50 mg-hydrochlorothiazide 2 tab PO DAILY 07/14/24 12/26/24 History 12.5 mg tablet (Hyzaar) Bacillus coagulans 250 million 1 tab PO DAILY 08/17/24 12/26/24 H istory cell chewable tablet (Digestive Advantage Probiotic Gummy) omeprazole 40 mg capsule,delayed 40 mg PO QDAY #90 caps 08/17/24 Rx release peg 3350-sod sulf,udjza-bez-fnu See Rx Instructions PO .COMPLEX #2 11/16/24 12/26/24 Rx 178.7-7.3-0.5-1.12-0.9 gram oral mL soln (Suflave) budesonide 3 mg 6 mg PO QAM Crohn's 12/26/2412/26 History capsule,delayed,extended release PFSH Medical History Wears contact lenses Alcohol use Prostate disease Dietary restriction History of diverticulitis History of Crohn's disease Non-smoker Hypertension Recurrent right inguinal hernia Surgical History History of bowel resection History of appendectomy History of vasectomy ( 03/2018) Hernia Family History Father Arthritis Social History Smoking Status: Never smoker alcohol intake: current alcohol intake frequency: a few times a month HPI HPI Chief Complaint: f/u Crohn's Details: JAIR WARREN, is a 39 M who presents to the office today for follow-up of Crohn's with diarrhea, abdominal pain and bloating. OV 08/18/2024 39-year-old male with newly diagnosed Crohn's disease, confirmed by surgical pathology following admission for acute appendicitis and intra-abdominal abscess. He underwent appendectomy with ileocolic resection and ileocolonic anastomosis, with intraoperative findings of dense adhesions and a sigmoid enterotomy requiring oversewing. Pathology revealing full-thickness chronic active inflammation, ulceration, fibrosis adhesions, and fistula formation at the ileocecal junction, consistent with Crohn's disease. He has a remote history of rectal abscesses approximately 15 years ago. Postoperative course was uncomplicated; he was started on course of budesonide 9 mg daily and metronidazole 250 mg twice daily and has since shown clinical improvement. Colonoscopy revealed mild active chronic ileocolitis at the anastomosis site with otherwise normal mucosa and no evidence of diffuse small bowel involvement. MRE showed mild wall thickening at the neoterminal ileum, likely related to postsurgical changes or fibrosis, with no evidence of active inflammation, stricture, or fistulizing disease. Fecal calprotectin was 71, and follow-up labs revealed a low potassium (3.2) but otherwise stable CBC and normal hepatic panel. TPMT and infectious screening (Quantiferon, hepatitis panel) were unremarkable. 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 Budesonide will be tapered gradually after completion of infliximab loading doses over 8 to 12 weeks, and metronidazole will be discontinued at this time, as there is no current evidence of infection or perianal involvement. Labs including CBC, CMP, and TPMT will be monitored closely during azathioprine titration, with target dosing of 2 to 2.5 mg/kg/day, titrated over several weeks as tolerated. Infliximab will be initiated with standard induction (weeks 0, 2, 6), followed by maintenance dosing every 8 weeks. The patient has been counseled on risks, benefits, and monitoring requirements for combination immunosuppression and agrees with plan. Note: [employer] speech recognition capital project engineer software was used to create portions o (more content not included)... Normal [facility] Glomerular filtration rate ( GFR) estimation/1.73 sq m using serum, plasma, or whole bOrdered By: Josefina Sears on 12-26-2024 GFR/1.73 sq M.predicted among non-blacks MDRD (S/P/Bld) [Vol rate/Area] 110 mL/min/{1.73_m2} Normal [facility] Comment on above: mL/min/1.73m2 CKD-EP I Creatinine Equation (2020) Hemoglobin measurementOrdere d By: Josefina Sears on 12-26-2024 Hemoglobin (Bld) [Mass/Vol] 12.1 g/dL Abnormal 13.0 - 16.5 g/dL [facility] Immature granulocytes/100 WB C Auto (Bld)Ordered By: Josefina Sears on 12-26-2024 Immature granulocytes/100 WBC (Bld) 0.500 % 0.0-0.9 [facility] Comment on above: IG% - Immature Granu locytes (promyelocytes, myelocytes and metamyelocytes) > 1% indicates that a LEFT SHIFT is Present. Iron measurement (mass/mass) Ordered By: Josefina Sears on 12-26-2024 Iron (Unsp spec) [Mass/Mass] 32 ug/dL Low 65-175 [facility] Laboratory - Chemistry and C hemistry - challengeon 12-26-2024 Iron [Mass/Vol] 32 ug/dL Abnormal 65 - 175 ug/dL [facility]; [facility] Work Phone: Laboratory - Chemistry and C hemistry - challengeOrdered By: Josefina Sears on 12-26-2024 AST [Catalytic activity/Vol] 27 U/L Normal [facility] Lipaseon 12-26-2024 Lipase [Catalytic activity/Vol] 83 U/L High 13-75 [facility] Comment on above: Result Comment: Chris slater note: LIPASE revised reference range effective 22. New Lipase methodology. Expected to produce lower values than the previous assay method. NEW Reference Range: 13 - 75 U/L Performed By: #### L 501.2450, L500.4050, L501.6710, L100.0100 #### [facility] Laboratory [address] [place], [address] Lipase measurementOrdered By : Josefina Sears on 12-26-2024 Lipase [Catalytic activity/Vol] 83 U/L Abnormal 13 - 75 U/L [facility] Comment on above: Please note:LIPASE r evised reference range effective 22. New Lipase methodology. Expected to produce lower values than the previous assay method. NEW Reference Range: 13 - 75 U/L MCV (mean corpuscular volume ) determinationOrdered By: Josefina Sears on 12-26-2024 MCV (RBC) [Entitic vol] 78.4 fL Abnormal 80 - 94 fL [facility] Mean corpuscular hemoglobin (MCH) determinationOrdered By: Josefina Sears on 12-26-2024 MCH (RBC) [Entitic mass] 24.9 pg Abnormal 27.0 - 32.0 pg [facility] Mean corpuscular hemoglobin concentration (MCHC) determinationOrdered By: Josefina Sears on 12-26-2024 MCHC (RBC) [Mass/Vol] 31.8 g/dL Abnormal 32 - 36 g/dL [facility] Mean platelet volume determi nationOrdered By: Josefina Sears on 12-26-2024 Platelet mean volume (Bld) [Entitic vol] 11.7 fL Normal 6.2 - 12.0 fL [facility] Monocyte percentageOrdered B y: Josefina Sears on 12-26-2024 Monocytes/100 WBC (Bld) 6.8 % Normal 0 - 10 [facility] Neutrophil percentageOrdered By: Josefina Sears on 12-26-2024 Neutrophils/100 WBC (Bld) 81.5 % Abnormal 47 - 70 [facility] No Panel Informationon 12-26 Absolute Lymph 0.61 {X10_3/uL} Abnormal 0.83 - 4.5 1 {X10_3/uL} [facility] Work Phone: Absolute Neut 5.2 {X10_3/uL} Normal 2.0 - 7.7 {X10_3/uL} [facility] Work Phone: BUN/CRE 12.8 {RATIO} Normal 10 - 20 {RATIO} [facility] Work Phone: IRON SATURATION 6.8 Abnormal 9 - 55 [facility] Work Phone: TIBC 472 ug/dL Abnormal 250 - 450 ug/dL [facility] Work Phone: UIBC 440 ug/dL Abnormal 228 - 428 ug/dL [facility] Work Phone: No Panel InformationOrdered By: Josefina Sears on 12-26-2024 Unsaturated Iron Binding Capacity 440 ug/dL High 228-428 [facility] Nucleated red blood cell per centageOrdered By: Josefina Sears on 12-26-2024 Nucleated RBC/100 WBC (Bld) [Ratio] 0 % 0-5 [facility] Platelet countOrdered By: Leo Sears on 12-26-2024 Platelets (Bld) [#/Vol] 185 10*3/uL Normal 150 - 450 K/mm3 [facility] Potassium measurement (mass/ volume)Ordered By: Josefina Sears on 12-26-2024 Potassium (Unsp spec) [Mass/Vol] 3.2 mmol/L Low 3.3-5.1 [facility] Serum creatinine measurement (mass/volume)Ordered By: Josefina Sears on 12-26-2024 Creatinine [Mass/Vol] 0.91 mg/dL Normal 0.70 - 1.20 mg/dL [facility] Serum globulin measurementOr dered By: Josefina Sears on 12-26-2024 Globulin (S) [Mass/Vol] 2.6 g/dL Normal 2.2 - 4.2 g/dL [facility] Serum glucose measurement (m ass/volume)Ordered By: Josefina Sears on 12-26-2024 Glucose [Mass/Vol] 95 mg/dL Normal 70 - 99 mg/dL [facility] Serum or plasma C reactive p rotein measurement (mass/volume)Ordered By: Josefina Sears on 12-26-2024 CRP [Mass/Vol] mg/L 0.0-3.0 [facility] Serum or plasma alanine garcia otransferase (ALT) measurementOrdered By: Josefina Sears on 12-26-2024 ALT [Catalytic activity/Vol] 42 U/L Normal [facility] Serum or plasma albumin jazmin urement (mass/volume)Ordered By: Josefina Sears on 12-26-2024 Albumin [Mass/Vol] 4.4 g/dL Normal 3.5 - 5.0 g/dL [facility] Serum or plasma albumin/glob ulin mass ratioOrdered By: Josefina Sears on 12-26-2024 Albumin/Globulin [Mass ratio] 1.7 {ratio} Normal 0.9 - 2.4 {RATIO} [facility] Serum or plasma alkaline dar sphatase measurementOrdered By: Josefina Sears on 12-26-2024 ALP [Catalytic activity/Vol] 59 U/L 40-129 [facility] Serum or plasma calcium jazmin urement (mass/volume)Ordered By: Josefina Sears on 12-26-2024 Calcium [Mass/Vol] 9.8 mg/dL Normal 7.6 - 11. 0 mg/dL [facility] Serum or plasma ferritin geovanna surement (mass/volume)Ordered By: Josefina Sears on 12-26-2024 Ferritin [Mass/Vol] 11 ng/mL Abnormal 37 - 417 ng/mL [facility] Serum or plasma iron saturat ion measurement (mass fraction)Ordered By: Josefina Sears on 12-26-2024 Iron saturation [Mass fraction] 6.8 % Low 9-55 [facility] Comment on above: Previous reported re sult: 6.7 %Edited by: DEEJAY on 12/28/24:1412 Serum or plasma urea nitroge n measurement (mass/volume)Ordered By: Josefina Sears on 12-26-2024 Urea nitrogen [Mass/Vol] 12 mg/dL Normal 4 - 19 mg/dL [facility] Sodium levelOrdered By: Chantel Sears on 12-26-2024 Sodium [Moles/Vol] 140 mmol/L Normal 133 - 145 mmol/L [facility] Total proteinOrdered By: Rebekah shwetawilbert Sears on 12-26-2024 Protein [Mass/Vol] 7.0 g/dL 5.9-8.4 [facility] White blood cell (WBC) count Ordered By: Josefina Orion on 12-26-2024 WBC (Bld) [#/Vol] 6.3 10*3/uL Normal 4.4 - 11.0 K/mm3 [facility] CBC W Auto Differential pane l (Bld)on 11-18-2024 Basophils (Bld) [#/Vol] 0.03 10*3/uL Normal <0.11 [facility] Comment on above: Order Comment: Klaus colindres Type: BLOOD SPECIMEN Ordering Facility: External Submitter Address: , , Performed By: #### 5 7021-8 #### [facility] CLIA [id number] [address] [place] [address] [place] Basophils/100 WBC (Bld) 0.6 % [facility] Comment on above: Order Comment: Speci jens Type: BLOOD SPECIMEN Ordering Facility: External Submitter Address: , , Performed By: #### 5 7021-8 #### [facility] CLIA [id number] [address] [place] [address] [place] Differential cell count method Nom (Bld) Auto [facility] Comment on above: Order Comment: Klaus colindres Type: BLOOD SPECIMEN Ordering Facility: External Submitter Address: , , Performed By: #### 5 7021-8 #### [facility] CLIA [id number] [address] [place] [address] [place] Eosinophils (Bld) [#/Vol] 0.11 10*3/uL Normal <0.46 [facility] Comment on above: Order Comment: Klaus colindres Type: BLOOD SPECIMEN Ordering Facility: External Submitter Address: , , Performed By: #### 5 7021-8 #### [facility] CLIA [id number] [address] [place] [address] [place] Eosinophils/100 WBC (Bld) 2.3 % [facility] Comment on above: Order Comment: Speci men Type: BLOOD SPECIMEN Ordering Facility: External Submitter Address: , , Performed By: #### 5 7021-8 #### [facility] CLIA [id number] [address] [place] [address] [place] Erythrocyte distribution width (RBC) [Ratio] 14.3 % Normal 11.5-15.0 [facility] Comment on above: Order Comment: Speci men Type: BLOOD SPECIMEN Ordering Facility: External Submitter Address: , , Performed By: #### 5 7021-8 #### [facility] CLIA [id number] [address] [place] [address] [place] Hematocrit (Bld) [Volume fraction] 39.4 % Normal 39.0-51.0 [facility] Comment on above: Order Comment: Speci men Type: BLOOD SPECIMEN Ordering Facility: External Submitter Address: , , Performed By: #### 5 7021-8 #### [facility] CLIA [id number] [address] [place] [address] [place] Hemoglobin (Bld) [Mass/Vol] 12.3 g/dL Low 13.0-17.0 [facility] Comment on above: Order Comment: Speci men Type: BLOOD SPECIMEN Ordering Facility: External Submitter Address: , , Performed By: #### 5 7021-8 #### [facility] [place] [id number] [address] [place] [address] [place] Immature granulocytes (Bld) [#/Vol] 10*3/uL Normal <0.10 [facility] Comment on above: Order Comment: Speci men Type: BLOOD SPECIMEN Ordering Facility: External Submitter Address: , , Performed By: #### 5 7021-8 #### [facility] CLIA [id number] [address] [place] [address] [place] Immature granulocytes/100 WBC (Bld) 0.2 % Normal [facility] Comment on above: Order Comment: Speci men Type: BLOOD SPECIMEN Ordering Facility: External Submitter Address: , , Performed By: #### 5 7021-8 #### [facility] CLIA [id number] [address] [place] [address] Lymphocytes (Bld) [#/Vol] 0.71 10*3/uL Low 1.00-4.00 [facility] Comment on above: Order Comment: Speci men Type: BLOOD SPECIMEN Ordering Facility: External Submitter Address: , , Performed By: #### 5 7021-8 #### [facility] IA [id number] [address] [place] [address] Lymphocytes/100 WBC (Bld) 15.0 % Normal [facility] Comment on above: Order Comment: Speci men Type: BLOOD SPECIMEN Ordering Facility: External Submitter Address: , , Performed By: #### 5 7021-8 #### [facility] [id number] [address] [place] [address] [place] MCH (RBC) [Entitic mass] 25.4 pg Low 26.0-34.0 [facility] Comment on above: Order Comment: Speci men Type: BLOOD SPECIMEN Ordering Facility: External Submitter Address: , , Performed By: #### 5 7021-8 #### [facility] [place] [id number] [address] [place] [address] MCHC (RBC) [Mass/Vol] 31.2 g/dL Normal 30.5-36.0 [facility] Comment on above: Order Comment: Speci men Type: BLOOD SPECIMEN Ordering Facility: External Submitter Address: , , Performed By: #### 5 7021-8 #### [facility] IA [id number] [address] [place] [address] MCV (RBC) [Entitic vol] 81.2 fL Normal 80.0-100.0 [facility] Comment on above: Order Comment: Speci men Type: BLOOD SPECIMEN Ordering Facility: External Submitter Address: , , Performed By: #### 5 7021-8 #### [facility] IA [id number] [address] [place] [address] Monocytes (Bld) [#/Vol] 0.66 10*3/uL Normal <0.87 [facility] Comment on above: Order Comment: Speci men Type: BLOOD SPECIMEN Ordering Facility: External Submitter Address: , , Performed By: #### 5 7021-8 #### [facility] CLIA [id number] [address] [place] [address] [place] Monocytes/100 WBC (Bld) 13.9 % Normal [facility] Comment on above: Order Comment: Speci men Type: BLOOD SPECIMEN Ordering Facility: External Submitter Address: , , Performed By: #### 5 7021-8 #### [facility] CLIA [id number] [address] [place] [address] [place] Neutrophils (Bld) [#/Vol] 3.22 10*3/uL Normal 1.45-7.50 [facility] Comment on above: Order Comment: Speci men Type: BLOOD SPECIMEN Ordering Facility: External Submitter Address: , , Performed By: #### 5 7021-8 #### [facility] CLIA [id number] [address] [place] [address] [place] Neutrophils/100 WBC (Bld) 68.0 % Normal [facility] Comment on above: Order Comment: Speci men Type: BLOOD SPECIMEN Ordering Facility: External Submitter Address: , , Performed By: #### 5 7021-8 #### [facility] CLIA [id number] [address] [place] [address] [place] Nucleated RBC (Bld) [#/Vol] 10*3/uL Normal <0.01 [facility] Comment on above: Order Comment: Speci men Type: BLOOD SPECIMEN Ordering Facility: External Submitter Address: , , Performed By: #### 5 7021-8 #### [facility] CLIA [id number] [address] [place] [address] [place] Nucleated RBC/100 WBC (Bld) [Ratio] 0.0 /100 WBC Normal [facility] Comment on above: Order Comment: Speci men Type: BLOOD SPECIMEN Ordering Facility: External Submitter Address: , , Performed By: #### 5 7021-8 #### [facility] CLIA [id number] [address] [place] [address] [place] Platelet mean volume (Bld) [Entitic vol] 11.5 fL Normal 9.0-12.7 [facility] Comment on above: Order Comment: Speci men Type: BLOOD SPECIMEN Ordering Facility: External Submitter Address: , , Performed By: #### 5 7021-8 #### [facility] [place] [id number] [address] [place] [address] [place] Platelets (Bld) [#/Vol] 211 10*3/uL Normal 150-400 [facility] Comment on above: Order Comment: Speci men Type: BLOOD SPECIMEN Ordering Facility: External Submitter Address: , , Performed By: #### 5 7021-8 #### [facility] [place] [id number] [address] [place] [address] [place] RBC (Bld) [#/Vol] 4.85 10*6/uL Normal 4.20-6.00 [facility] Comment on above: Order Comment: Speci men Type: BLOOD SPECIMEN Ordering Facility: External Submitter Address: , , Performed By: #### 5 7021-8 #### [facility] [place] [id number] [address] [place] [address] [place] WBC (Bld) [#/Vol] 4.74 10*3/uL Normal 3.70-11.00 [facility] Comment on above: Order Comment: Speci men Type: BLOOD SPECIMEN Ordering Facility: External Submitter Address: , , Performed By: #### 5 7021-8 #### [facility] [place] [id number] [address] [place] [address] [place] CRP SerPl-mCncon 11-18-2024 CRP [Mass/Vol] mg/L Normal <0.9 [facility] Comment on above: Order Comment: Speci men Type: BLOOD SPECIMEN Ordering Facility: External Submitter Address: , , Performed By: #### 1 798-8, 37834-8, 3040-3 #### [facility] [place] [id number] [address] [place] Calprotectin (Stl) [Mass/Mas s]on 11-18-2024 CALPROTECTIN, FECAL QUANTITATIVE 116 ug/g High <50 [facility] Comment on above: Order Comment: Speci men Type: BLOOD SPECIMEN Ordering Facility: External Submitter Address: , , Performed By: #### 1 798-8, 29305-7, 0-3 #### [facility] CLIA [id number] [address] [place] [address] Comprehensive metabolic 2000 panelon 11-18-2024 Albumin [Mass/Vol] 4.6 g/dL Normal 3.9-4.9 [facility] Comment on above: Order Comment: Speci men Type: BLOOD SPECIMEN Ordering Facility: External Submitter Address: , , Performed By: #### 1 798-8, 64717-4, 0-3 #### [facility] CLIA [id number] [address] [place] [address] [place] ALP [Catalytic activity/Vol] 63 U/L Normal 38-113 [facility] Comment on above: Order Comment: Speci men Type: BLOOD SPECIMEN Ordering Facility: External Submitter Address: , , Performed By: #### 1 798-8, 13883-3, 3039-3 #### [facility] CLIA [id number] [address] [place] [address] [place] ALT [Catalytic activity/Vol] 53 U/L Normal 10-54 [facility] Comment on above: Order Comment: Speci men Type: BLOOD SPECIMEN Ordering Facility: External Submitter Address: , , Performed By: #### 1 798-8, 65525-6, 0-3 #### [facility] CLIA [id number] [address] [place] [address] [place] Anion gap [Moles/Vol] 15 mmol/L Normal 8-15 [facility] Comment on above: Order Comment: Speci men Type: BLOOD SPECIMEN Ordering Facility: External Submitter Address: , , Performed By: #### 1 798-8, 46387-9, 0-3 #### [facility] CLIA [id number] [address] [place] [address] [place] AST [Catalytic activity/Vol] 35 U/L Normal 14-40 [facility] Comment on above: Order Comment: Speci men Type: BLOOD SPECIMEN Ordering Facility: External Submitter Address: , , Performed By: #### 1 798-8, 99972-9, 3039-3 #### [facility] CLIA [id number] [address] [place] [address] [place] Bilirubin [Mass/Vol] 1.7 mg/dL High 0.2-1.3 [facility] Comment on above: Order Comment: Speci men Type: BLOOD SPECIMEN Ordering Facility: External Submitter Address: , , Performed By: #### 1 798-8, 11738-0, 3 #### [facility] CLIA [id number] [address] [place] [address] [place] Calcium [Mass/Vol] 9.5 mg/dL Normal 8.5-10.2 [facility] Comment on above: Order Comment: Speci men Type: BLOOD SPECIMEN Ordering Facility: External Submitter Address: , , Performed By: #### 1 798-8, , 3 #### [facility] CLIA [id number] [address] [place] [address] [place] Chloride [Moles/Vol] 97 mmol/L Low 98-107 [facility] Comment on above: Order Comment: Speci men Type: BLOOD SPECIMEN Ordering Facility: External Submitter Address: , , Performed By: #### 1 798-8, 52749-8, 3039-3 #### [facility] CLIA [id number] [address] [place] [address] [place] CO2 [Moles/Vol] 27 mmol/L Normal 22-30 [facility] Comment on above: Order Comment: Speci men Type: BLOOD SPECIMEN Ordering Facility: External Submitter Address: , , Performed By: #### 1 798-8, 41966-2, 3039-3 #### [facility] CLIA [id number] [address] [place] [address] [place] Creatinine [Mass/Vol] 1.03 mg/dL Normal 0.73-1.22 [facility] Comment on above: Order Comment: Klaus colindres Type: BLOOD SPECIMEN Ordering Facility: External Submitter Address: , , Performed By: #### 1 798-8, 41065-1, 3040-3 #### [facility] CLIA [id number] [address] [place] [address] [place] eGFRcr SerPlBld CKD-EPI 2020 95 mL/min/1.73m??? Normal >=60 [facility] Comment on above: Order Comment: Klaus colindres Type: BLOOD SPECIMEN Ordering Facility: External Submitter Address: , , Result Comment: Codie mated Glomerular Filtration Rate (eGFR) is calculated using the 2020 CKD-EPI creatinine equation. This equation utilizes serum creatinine, sex, and age as parameters. The creatinine assay has traceable calibration to isotope dilution-mass spectrometry. Refer to KDIGO guidelines for clinical interpretation. In patients with unstable renal function, e.g. those with acute kidney injury, the eGFR may not accurately reflect actual GFR. Performed By: #### 1 798-8, 84676-2, 3040-3 #### [facility] CLIA [id number] [address] [place] [address] [place] Glucose [Mass/Vol] 92 mg/dL Normal 74-99 [facility] Comment on above: Order Comment: Klaus colindres Type: BLOOD SPECIMEN Ordering Facility: External Submitter Address: , , Result Comment: The [place] [employer] (ADA) provides guidance for cutoff values for fasting glucose and random glucose. The ADA defines fasting as no caloric intake for at least 8 hours. Fasting plasma glucose results between 100 to 125 mg/dL indicate increased risk for diabetes (prediabetes). Fasting plasma glucose results greater than or equal to 126 mg/dL meet the criteria for diagnosis of diabetes. In the absence of unequivocal hyperglycemia, results should be confirmed by repeat testing. In a patient with classic symptoms of hyperglycemia or hyperglycemic crisis, random plasma glucose results greater than or equal to 200 mg/dL meet the criteria for diagnosis of diabetes. Reference: Standards of Medical Care in Diabetes 2016, [place] [employer]. Diabetes Care. 2016.39(Suppl 1). Performed By: #### 1 798-8, 63956-8, 0-3 #### [facility] CLIA [id number] [address] [place] [address] [place] Potassium [Moles/Vol] 2.9 mmol/L Low 3.7-5.1 [facility] Comment on above: Order Comment: Speci men Type: BLOOD SPECIMEN Ordering Facility: External Submitter Address: , , Performed By: #### 1 798-8, 27851-8, 0-3 #### [facility] CLIA [id number] [address] [place] [address] [place] Protein [Mass/Vol] 7.3 g/dL Normal 6.3-8.0 [facility] Comment on above: Order Comment: Speci men Type: BLOOD SPECIMEN Ordering Facility: External Submitter Address: , , Performed By: #### 1 798-8, 15486-5, 3039-3 #### [facility] CLIA [id number] [address] [place] [address] [place] Sodium [Moles/Vol] 139 mmol/L Normal 136-144 [facility] Comment on above: Order Comment: Speci men Type: BLOOD SPECIMEN Ordering Facility: External Submitter Address: , , Performed By: #### 1 798-8, 33155-7, 0-3 #### [facility] CLIA [id number] [address] [place] [address] [place] Urea nitrogen [Mass/Vol] 13 mg/dL Normal 9-24 [facility] Comment on above: Order Comment: Speci men Type: BLOOD SPECIMEN Ordering Facility: External Submitter Address: , , Performed By: #### 1 798-8, 40337-9, 0-3 #### [facility] CLIA [id number] [address] [place] [address] [place] Basic metabolic 2000 panelon 11-07-2024 Anion gap [Moles/Vol] 11 mmol/L Normal 8-15 [facility] Comment on above: Order Comment: Speci men Type: BLOOD SPECIMEN Ordering Facility: External Submitter Address: , , Performed By: #### 1 798-8, 92666-4, 3039-3 #### [facility] CLIA [id number] [address] [place] [address] [place] Calcium [Mass/Vol] 9.6 mg/dL Normal 8.5-10.2 [facility] Comment on above: Order Comment: Speci men Type: BLOOD SPECIMEN Ordering Facility: External Submitter Address: , , Performed By: #### 1 798-8, 32243-3, 3039-3 #### [facility] CLIA [id number] [address] [place] [address] [place] Chloride [Moles/Vol] 100 mmol/L Normal 98-107 [facility] Comment on above: Order Comment: Speci men Type: BLOOD SPECIMEN Ordering Facility: External Submitter Address: , , Performed By: #### 1 798-8, 87631-0, 3 #### [facility] CLIA [id number] [address] [place] [address] [place] CO2 [Moles/Vol] 29 mmol/L Normal 22-30 [facility] Comment on above: Order Comment: Speci men Type: BLOOD SPECIMEN Ordering Facility: External Submitter Address: , , Performed By: #### 1 798-8, 10159-4, 3039-3 #### [facility] CLIA [id number] [address] [place] [address] [place] Creatinine [Mass/Vol] 1.11 mg/dL Normal 0.73-1.22 [facility] Comment on above: Order Comment: Speci men Type: BLOOD SPECIMEN Ordering Facility: External Submitter Address: , , Performed By: #### 1 798-8, 29700-7, 3039-3 #### [facility] CLIA [id number] [address] [place] [address] [place] eGFRcr SerPlBld CKD-EPI 2020 87 mL/min/1.73m??? Normal >=60 [facility] Comment on above: Order Comment: Klaus colindres Type: BLOOD SPECIMEN Ordering Facility: External Submitter Address: , , Result Comment: Codie mated Glomerular Filtration Rate (eGFR) is calculated using the 2020 CKD-EPI creatinine equation. This equation utilizes serum creatinine, sex, and age as parameters. The creatinine assay has traceable calibration to isotope dilution-mass spectrometry. Refer to KDIGO guidelines for clinical interpretation. In patients with unstable renal function, e.g. those with acute kidney injury, the eGFR may not accurately reflect actual GFR. Performed By: #### 1 798-8, 19629-1, 0-3 #### [facility] CLIA [id number] [address] [place] [address] [place] Glucose [Mass/Vol] 85 mg/dL Normal 74-99 [facility] Comment on above: Order Comment: Klaus colindres Type: BLOOD SPECIMEN Ordering Facility: External Submitter Address: , , Result Comment: The [place] [employer] (ADA) provides guidance for cutoff values for fasting glucose and random glucose. The ADA defines fasting as no caloric intake for at least 8 hours. Fasting plasma glucose results between 100 to 125 mg/dL indicate increased risk for diabetes (prediabetes). Fasting plasma glucose results greater than or equal to 126 mg/dL meet the criteria for diagnosis of diabetes. In the absence of unequivocal hyperglycemia, results should be confirmed by repeat testing. In a patient with classic symptoms of hyperglycemia or hyperglycemic crisis, random plasma glucose results greater than or equal to 200 mg/dL meet the criteria for diagnosis of diabetes. Reference: Standards of Medical Care in Diabetes 2016, [place] [employer]. Diabetes Care. 2016.39(Suppl 1). Performed By: #### 1 798-8, 41206-3, 3039-3 #### [facility] CLIA [id number] [address] [place] [address] [place] Potassium [Moles/Vol] 3.2 mmol/L Low 3.7-5.1 [facility] Comment on above: Order Comment: Klaus colindres Type: BLOOD SPECIMEN Ordering Facility: External Submitter Address: , , Performed By: #### 1 798-8, 40637-5, 0-3 #### [facility] CLIA [id number] [address] [place] [address] [place] Sodium [Moles/Vol] 140 mmol/L Normal 136-144 [facility] Comment on above: Order Comment: Speci men Type: BLOOD SPECIMEN Ordering Facility: External Submitter Address: , , Performed By: #### 1 798-8, 17727-9, 3 #### [facility] CLIA [id number] [address] [place] [address] [place] Urea nitrogen [Mass/Vol] 14 mg/dL Normal 9-24 [facility] Comment on above: Order Comment: Speci men Type: BLOOD SPECIMEN Ordering Facility: External Submitter Address: , , Performed By: #### 1 798-8, , 3 #### [facility] CLIA [id number] [address] [place] [address] [place] CBC W Auto Differential pane l (Bld)on 11-07-2024 Basophils (Bld) [#/Vol] 0.04 10*3/uL Normal <0.11 [facility] Comment on above: Order Comment: Speci men Type: BLOOD SPECIMEN Ordering Facility: External Submitter Address: , , Performed By: #### 1 798-8, , 3 #### [facility] CLIA [id number] [address] [place] [address] [place] Basophils/100 WBC (Bld) 0.5 % Normal [facility] Comment on above: Order Comment: Speci men Type: BLOOD SPECIMEN Ordering Facility: External Submitter Address: , , Performed By: #### 1 798-8, , 3 #### [facility] CLIA [id number] [address] [place] [address] [place] Differential cell count method Nom (Bld) Auto Normal [facility] Comment on above: Order Comment: Speci men Type: BLOOD SPECIMEN Ordering Facility: External Submitter Address: , , Performed By: #### 1 798-8, 68359-3, 3 #### [facility] CLIA [id number] [address] [place] [address] [place] Eosinophils (Bld) [#/Vol] 0.07 10*3/uL Normal <0.46 [facility] Comment on above: Order Comment: Speci men Type: BLOOD SPECIMEN Ordering Facility: External Submitter Address: , , Performed By: #### 1 798-8, 78193-0, 3039-3 #### [facility] CLIA [id number] [address] [place] [address] [place] Eosinophils/100 WBC (Bld) 0.8 % Normal [facility] Comment on above: Order Comment: Speci men Type: BLOOD SPECIMEN Ordering Facility: External Submitter Address: , , Performed By: #### 1 798-8, , 3 #### [facility] CLIA [id number] [address] [place] [address] [place] Erythrocyte distribution width (RBC) [Ratio] 13.9 % Normal 11.5-15.0 [facility] Comment on above: Order Comment: Speci men Type: BLOOD SPECIMEN Ordering Facility: External Submitter Address: , , Performed By: #### 1 798-8, , 3 #### [facility] CLIA [id number] [address] [place] [address] [place] Hematocrit (Bld) [Volume fraction] 37.8 % Low 39.0-51.0 [facility] Comment on above: Order Comment: Speci men Type: BLOOD SPECIMEN Ordering Facility: External Submitter Address: , , Performed By: #### 1 798-8, , 3 #### [facility] CLIA [id number] [address] [place] [address] [place] Hemoglobin (Bld) [Mass/Vol] 11.9 g/dL Low 13.0-17.0 [facility] Comment on above: Order Comment: Speci men Type: BLOOD SPECIMEN Ordering Facility: External Submitter Address: , , Performed By: #### 1 798-8, 04552-8, 3039-3 #### [facility] CLIA [id number] [address] [place] [address] [place] Immature granulocytes (Bld) [#/Vol] 10*3/uL Normal <0.10 [facility] Comment on above: Order Comment: Speci men Type: BLOOD SPECIMEN Ordering Facility: External Submitter Address: , , Performed By: #### 1 798-8, 86633-9, 3039-3 #### [facility] CLIA [id number] [address] [place] [address] [place] Immature granulocytes/100 WBC (Bld) 0.2 % Normal [facility] Comment on above: Order Comment: Speci men Type: BLOOD SPECIMEN Ordering Facility: External Submitter Address: , , Performed By: #### 1 798-8, , 3 #### [facility] CLIA [id number] [address] [place] [address] [place] Lymphocytes (Bld) [#/Vol] 0.71 10*3/uL Low 1.00-4.00 [facility] Comment on above: Order Comment: Speci men Type: BLOOD SPECIMEN Ordering Facility: External Submitter Address: , , Performed By: #### 1 798-8, , 3 #### [facility] CLIA [id number] [address] [place] [address] [place] Lymphocytes/100 WBC (Bld) 8.5 % Normal [facility] Comment on above: Order Comment: Speci men Type: BLOOD SPECIMEN Ordering Facility: External Submitter Address: , , Performed By: #### 1 798-8, , 3 #### [facility] CLIA [id number] [address] [place] [address] [place] MCH (RBC) [Entitic mass] 25.6 pg Low 26.0-34.0 [facility] Comment on above: Order Comment: Speci men Type: BLOOD SPECIMEN Ordering Facility: External Submitter Address: , , Performed By: #### 1 798-8, 31331-8, 3039-3 #### [facility] CLIA [id number] [address] [place] [address] MCHC (RBC) [Mass/Vol] 31.5 g/dL Normal 30.5-36.0 [facility] Comment on above: Order Comment: Speci men Type: BLOOD SPECIMEN Ordering Facility: External Submitter Address: , , Performed By: #### 1 798-8, 39608-6, 3039-3 #### [facility] CLIA [id number] [address] [place] [address] MCV (RBC) [Entitic vol] 81.3 fL Normal 80.0-100.0 [facility] Comment on above: Order Comment: Speci men Type: BLOOD SPECIMEN Ordering Facility: External Submitter Address: , , Performed By: #### 1 798-8, 60187-4, 3 #### [facility] IA [id number] [address] [place] [address] [place] Monocytes (Bld) [#/Vol] 0.71 10*3/uL Normal <0.87 [facility] Comment on above: Order Comment: Speci men Type: BLOOD SPECIMEN Ordering Facility: External Submitter Address: , , Performed By: #### 1 798-8, , 3 #### [facility] CLIA [id number] [address] [place] [address] Monocytes/100 WBC (Bld) 8.5 % Normal [facility] Comment on above: Order Comment: Speci men Type: BLOOD SPECIMEN Ordering Facility: External Submitter Address: , , Performed By: #### 1 798-8, 89924-6, 3039-3 #### [facility] CLIA [id number] [address] [place] [address] [place] Neutrophils (Bld) [#/Vol] 6.78 10*3/uL Normal 1.45-7.50 [facility] Comment on above: Order Comment: Speci men Type: BLOOD SPECIMEN Ordering Facility: External Submitter Address: , , Performed By: #### 1 798-8, 11808-2, 3040-3 #### [facility] CLIA [id number] [address] [place] [address] [place] Neutrophils/100 WBC (Bld) 81.5 % Normal [facility] Comment on above: Order Comment: Speci men Type: BLOOD SPECIMEN Ordering Facility: External Submitter Address: , , Performed By: #### 1 798-8, 15997-5, 3 #### [facility] CLIA [id number] [address] [place] [address] [place] Nucleated RBC (Bld) [#/Vol] 10*3/uL Normal <0.01 [facility] Comment on above: Order Comment: Speci men Type: BLOOD SPECIMEN Ordering Facility: External Submitter Address: , , Performed By: #### 1 798-8, 41415-2, 3 #### [facility] CLIA [id number] [address] [place] [address] [place] Nucleated RBC/100 WBC (Bld) [Ratio] 0.0 /100 WBC Normal [facility] Comment on above: Order Comment: Speci men Type: BLOOD SPECIMEN Ordering Facility: External Submitter Address: , , Performed By: #### 1 798-8, , 3 #### [facility] CLIA [id number] [address] [place] [address] [place] Platelet mean volume (Bld) [Entitic vol] 11.5 fL Normal 9.0-12.7 [facility] Comment on above: Order Comment: Speci men Type: BLOOD SPECIMEN Ordering Facility: External Submitter Address: , , Performed By: #### 1 798-8, 54714-7, 3 #### [facility] CLIA [id number] [address] [place] [address] [place] Platelets (Bld) [#/Vol] 213 10*3/uL Normal 150-400 [facility] Comment on above: Order Comment: Speci men Type: BLOOD SPECIMEN Ordering Facility: External Submitter Address: , , Performed By: #### 1 798-8, 23863-2, 3040-3 #### [facility] CLIA [id number] [address] [place] [address] [place] RBC (Bld) [#/Vol] 4.65 10*6/uL Normal 4.20-6.00 [facility] Comment on above: Order Comment: Speci men Type: BLOOD SPECIMEN Ordering Facility: External Submitter Address: , , Performed By: #### 1 798-8, 56294-7, 3039-3 #### [facility] CLIA [id number] [address] [place] [address] [place] WBC (Bld) [#/Vol] 8.33 10*3/uL Normal 3.70-11.00 [facility] Comment on above: Order Comment: Speci men Type: BLOOD SPECIMEN Ordering Facility: External Submitter Address: , , Performed By: #### 1 798-8, 18127-9, 3039-3 #### [facility] CLIA [id number] [address] [place] [address] [place] Hepatic function 2000 panelo n 11-07-2024 Albumin [Mass/Vol] 4.6 g/dL Normal 3.9-4.9 [facility] Comment on above: Order Comment: Speci men Type: BLOOD SPECIMEN Ordering Facility: External Submitter Address: , , Performed By: #### 1 798-8, 81073-5, 3039-3 #### [facility] CLIA [id number] [address] [place] [address] [place] ALP [Catalytic activity/Vol] 63 U/L Normal 38-113 [facility] Comment on above: Order Comment: Speci men Type: BLOOD SPECIMEN Ordering Facility: External Submitter Address: , , Performed By: #### 1 798-8, 43999-8, 3039-3 #### [facility] CLIA [id number] [address] [place] [address] [place] ALT [Catalytic activity/Vol] 42 U/L Normal 10-54 [facility] Comment on above: Order Comment: Speci men Type: BLOOD SPECIMEN Ordering Facility: External Submitter Address: , , Performed By: #### 1 798-8, 53225-8, 3039-3 #### [facility] CLIA [id number] [address] [place] [address] [place] AST [Catalytic activity/Vol] 29 U/L Normal 14-40 [facility] Comment on above: Order Comment: Speci men Type: BLOOD SPECIMEN Ordering Facility: External Submitter Address: , , Performed By: #### 1 798-8, 50890-9, 3 #### [facility] CLIA [id number] [address] [place] [address] [place] Bilirubin [Mass/Vol] 1.3 mg/dL Normal 0.2-1.3 [facility] Comment on above: Order Comment: Speci men Type: BLOOD SPECIMEN Ordering Facility: External Submitter Address: , , Performed By: #### 1 798-8, 00581-9, 3 #### [facility] CLIA [id number] [address] [place] [address] [place] Bilirubin.conjugated [Mass/Vol] 0.3 mg/dL High <0.3 [facility] Comment on above: Order Comment: Speci men Type: BLOOD SPECIMEN Ordering Facility: External Submitter Address: , , Performed By: #### 1 798-8, 32405-3, 3 #### [facility] CLIA [id number] [address] [place] [address] [place] Protein [Mass/Vol] 7.4 g/dL Normal 6.3-8.0 [facility] Comment on above: Order Comment: Speci men Type: BLOOD SPECIMEN Ordering Facility: External Submitter Address: , , Performed By: #### 1 798-8, 57870-0, 3039-3 #### [facility] CLIA [id number] [address] [place] [address] [place] LDH SerPl-cCncon 11-07-2024 LDH [Catalytic activity/Vol] 228 U/L High 135-225 [facility] Comment on above: Order Comment: Speci men Type: BLOOD SPECIMEN Ordering Facility: External Submitter Address: , , Performed By: #### 1 798-8, 43057-8, 3040-3 #### [facility] CLIA [id number] [address] [place] [address] [place] Lipase SerPl-cCncon 11-08-19 25 Lipase [Catalytic activity/Vol] 99 U/L High 16-61 [facility] Comment on above: Order Comment: Klaus colindres Type: BLOOD SPECIMEN Ordering Facility: External Submitter Address: , , Performed By: #### 1 798-8, 24273-8, 3040-3 #### [facility] CLIA [id number] [address] [place] [address] [place] PT panel Coag (PPP)on 2024 INR Coag (PPP) [Relative time] 1.0 {INR} Normal 0.9-1.3 [facility] Comment on above: Order Comment: Klaus colindres Type: BLOOD SPECIMEN Ordering Facility: External Submitter Address: , , Result Comment: Rabia min K Antagonist (VKA) Therapeutic Range: INR 2 to 3 (Target INR of 2.5) Note: For patients treated with VKA drugs, such as warfarin, the [place] [employer] 2012 Guideline recommends a therapeutic INR range of 2 to 3 (target INR of 2.5). This recommendation includes high-risk patients with antiphospholipid syndrome with previous arterial or venous thromboembolism, current-generation mechanical or bioprosthetic aortic heart valve replacement. Note: Patients with mechanical aortic valve replacement and additional risk factors for thromboembolic events (atrial fibrillation, previous thromboembolism, LV dysfunction, hypercoagulable conditions) or an older generation mechanical AVR (i.e., ball in-Cage) or any mechanical MVR should have a INR therapeutic range of 2.5 to 3.5 (target INR of 3). Donny GH, et al. Chest 2012, 141:7S-47S Dung RA et al. JACC 2017, 70: 252-289 Performed By: #### 3 4528-0 #### [facility] CLIA [id number] [address] [place] [address] [place] PT Coag (PPP) [Time] 10.8 s Normal 9.4-12.5 [facility] Comment on above: Order Comment: Speci jens Type: BLOOD SPECIMEN Ordering Facility: External Submitter Address: , , Performed By: #### 3 4528-0 #### [facility] CLIA [id number] [address] [place] [address] [place] Retics #on 11-07-2024 Reticulocytes (Bld) [#/Vol] 0.22689 10*3/uL Normal 0.018-0.100 [facility] Comment on above: Order Comment: Speci jens Type: BLOOD SPECIMEN Ordering Facility: External Submitter Address: , , Performed By: #### 1 798-8, 20893-2, 3039-3 #### [facility] CLIA [id number] [address] [place] [address] [place] Reticulocytes (Bld) [#/Vol]o n 11-07-2024 Reticulocytes/100 RBC (Bld) 1.0 % Normal 0.4-2.0 [facility] Comment on above: Order Comment: Mohiti jens Type: BLOOD SPECIMEN Ordering Facility: External Submitter Address: , , Performed By: #### 1 798-8, 62832-9, 3039-3 #### [facility] CLIA [id number] [address] [place] [address] [place] CBC W Auto Differential pane l (Bld)on 10-28-2024 Basophils (Bld) [#/Vol] 10*3/uL Normal <0.11 [facility] Comment on above: Order Comment: Speci men Type: BLOOD SPECIMEN Ordering Facility: External Submitter Address: , , Performed By: #### 1 798-8, 94697-6, 0-3 #### [facility] CLIA [id number] [address] [place] [address] Basophils/100 WBC (Bld) 0.2 % Normal [facility] Comment on above: Order Comment: Speci jens Type: BLOOD SPECIMEN Ordering Facility: External Submitter Address: , , Performed By: #### 1 798-8, 96827-3, 3040-3 #### [facility] CLIA [id number] [address] [place] [address] [place] Differential cell count method Nom (Bld) Auto Normal [facility] Comment on above: Order Comment: Speci men Type: BLOOD SPECIMEN Ordering Facility: External Submitter Address: , , Performed By: #### 1 798-8, 76605-4, 3 #### [facility] CLIA [id number] [address] [place] [address] [place] Eosinophils (Bld) [#/Vol] 0.11 10*3/uL Normal <0.46 [facility] Comment on above: Order Comment: Speci men Type: BLOOD SPECIMEN Ordering Facility: External Submitter Address: , , Performed By: #### 1 798-8, , 3 #### [facility] CLIA [id number] [address] [place] [address] [place] Eosinophils/100 WBC (Bld) 1.3 % Normal [facility] Comment on above: Order Comment: Speci men Type: BLOOD SPECIMEN Ordering Facility: External Submitter Address: , , Performed By: #### 1 798-8, , 3039-06 #### [facility] CLIA [id number] [address] [place] [address] [place] Erythrocyte distribution width (RBC) [Ratio] 14.2 % Normal 11.5-15.0 [facility] Comment on above: Order Comment: Speci men Type: BLOOD SPECIMEN Ordering Facility: External Submitter Address: , , Performed By: #### 1 798-8, , 3 #### [facility] CLIA [id number] [address] [place] [address] [place] Hematocrit (Bld) [Volume fraction] 36.2 % Low 39.0-51.0 [facility] Comment on above: Order Comment: Speci men Type: BLOOD SPECIMEN Ordering Facility: External Submitter Address: , , Performed By: #### 1 798-8, , 3040-3 #### [facility] CLIA [id number] [address] [place] [address] [place] Hemoglobin (Bld) [Mass/Vol] 11.5 g/dL Low 13.0-17.0 [facility] Comment on above: Order Comment: Speci men Type: BLOOD SPECIMEN Ordering Facility: External Submitter Address: , , Performed By: #### 1 798-8, 62902-9, 3 #### [facility] CLIA [id number] [address] [place] [address] [place] Immature granulocytes (Bld) [#/Vol] 0.04 10*3/uL Normal <0.10 [facility] Comment on above: Order Comment: Speci men Type: BLOOD SPECIMEN Ordering Facility: External Submitter Address: , , Performed By: #### 1 798-8, , 3 #### [facility] CLIA [id number] [address] [place] [address] [place] Immature granulocytes/100 WBC (Bld) 0.5 % Normal [facility] Comment on above: Order Comment: Speci men Type: BLOOD SPECIMEN Ordering Facility: External Submitter Address: , , Performed By: #### 1 798-8, , 3 #### [facility] CLIA [id number] [address] [place] [address] [place] Lymphocytes (Bld) [#/Vol] 0.84 10*3/uL Low 1.00-4.00 [facility] Comment on above: Order Comment: Speci men Type: BLOOD SPECIMEN Ordering Facility: External Submitter Address: , , Performed By: #### 1 798-8, 52093-1, 3 #### [facility] CLIA [id number] [address] [place] [address] [place] Lymphocytes/100 WBC (Bld) 9.6 % Normal [facility] Comment on above: Order Comment: Speci men Type: BLOOD SPECIMEN Ordering Facility: External Submitter Address: , , Performed By: #### 1 798-8, 26952-9, 3 #### [facility] CLIA [id number] [address] [place] [address] MCH (RBC) [Entitic mass] 25.8 pg Low 26.0-34.0 [facility] Comment on above: Order Comment: Speci men Type: BLOOD SPECIMEN Ordering Facility: External Submitter Address: , , Performed By: #### 1 798-8, , 3 #### [facility] CLIA [id number] [address] [place] [address] MCHC (RBC) [Mass/Vol] 31.8 g/dL Normal 30.5-36.0 [facility] Comment on above: Order Comment: Speci men Type: BLOOD SPECIMEN Ordering Facility: External Submitter Address: , , Performed By: #### 1 798-8, , 3 #### [facility] CLIA [id number] [address] [place] [address] [place] MCV (RBC) [Entitic vol] 81.3 fL Normal 80.0-100.0 [facility] Comment on above: Order Comment: Speci men Type: BLOOD SPECIMEN Ordering Facility: External Submitter Address: , , Performed By: #### 1 798-8, , 3 #### [facility] CLIA [id number] [address] [place] [address] [place] Monocytes (Bld) [#/Vol] 1.09 10*3/uL High <0.87 [facility] Comment on above: Order Comment: Speci men Type: BLOOD SPECIMEN Ordering Facility: External Submitter Address: , , Performed By: #### 1 798-8, , 3 #### [facility] CLIA [id number] [address] [place] [address] Monocytes/100 WBC (Bld) 12.5 % Normal [facility] Comment on above: Order Comment: Speci men Type: BLOOD SPECIMEN Ordering Facility: External Submitter Address: , , Performed By: #### 1 798-8, 47718-8, 3039-3 #### [facility] CLIA [id number] [address] [place] [address] [place] Neutrophils (Bld) [#/Vol] 6.62 10*3/uL Normal 1.45-7.50 [facility] Comment on above: Order Comment: Speci men Type: BLOOD SPECIMEN Ordering Facility: External Submitter Address: , , Performed By: #### 1 798-8, 89895-4, 3 #### [facility] CLIA [id number] [address] [place] [address] [place] Neutrophils/100 WBC (Bld) 75.9 % Normal [facility] Comment on above: Order Comment: Speci men Type: BLOOD SPECIMEN Ordering Facility: External Submitter Address: , , Performed By: #### 1 798-8, 66603-9, 3 #### [facility] CLIA [id number] [address] [place] [address] [place] Nucleated RBC (Bld) [#/Vol] 10*3/uL Normal <0.01 [facility] Comment on above: Order Comment: Speci men Type: BLOOD SPECIMEN Ordering Facility: External Submitter Address: , , Performed By: #### 1 798-8, , 3 #### [facility] CLIA [id number] [address] [place] [address] [place] Nucleated RBC/100 WBC (Bld) [Ratio] 0.0 /100 WBC Normal [facility] Comment on above: Order Comment: Speci men Type: BLOOD SPECIMEN Ordering Facility: External Submitter Address: , , Performed By: #### 1 798-8, 86674-7, 3039-3 #### [facility] CLIA [id number] [address] [place] [address] [place] Platelet mean volume (Bld) [Entitic vol] 11.6 fL Normal 9.0-12.7 [facility] Comment on above: Order Comment: Speci men Type: BLOOD SPECIMEN Ordering Facility: External Submitter Address: , , Performed By: #### 1 798-8, 23528-7, 0-3 #### [facility] CLIA [id number] [address] [place] [address] [facility] [place] Platelets (Bld) [#/Vol] 234 10*3/uL Normal 150-400 [facility] Comment on above: Order Comment: Speci men Type: BLOOD SPECIMEN Ordering Facility: External Submitter Address: , , Performed By: #### 1 798-8, 10539-8, 0-3 #### [facility] CLIA [id number] [address] [place] [address] [place] RBC (Bld) [#/Vol] 4.45 10*6/uL Normal 4.20-6.00 [facility] Comment on above: Order Comment: Speci men Type: BLOOD SPECIMEN Ordering Facility: External Submitter Address: , , Performed By: #### 1 798-8, 32852-0, 0-3 #### [facility] CLIA [id number] [address] [place] [address] [place] WBC (Bld) [#/Vol] 8.72 10*3/uL Normal 3.70-11.00 [facility] Comment on above: Order Comment: Speci men Type: BLOOD SPECIMEN Ordering Facility: External Submitter Address: , , Performed By: #### 1 798-8, 56836-5, 0-3 #### [facility] CLIA [id number] [address] [place] [address] [facility] [place] Comprehensive metabolic 2000 panelon 10-28-2024 Albumin [Mass/Vol] 4.4 g/dL Normal 3.9-4.9 [facility] Comment on above: Order Comment: Speci men Type: BLOOD SPECIMEN Ordering Facility: External Submitter Address: , , Performed By: #### 1 798-8, 57250-2, 0-3 #### [facility] CLIA [id number] [address] [place] [address] [place] ALP [Catalytic activity/Vol] 53 U/L Normal 38-113 [facility] Comment on above: Order Comment: Speci men Type: BLOOD SPECIMEN Ordering Facility: External Submitter Address: , , Performed By: #### 1 798-8, 99194-5, 3039-3 #### [facility] CLIA [id number] [address] [place] [address] [place] ALT [Catalytic activity/Vol] 66 U/L High 10-54 [facility] Comment on above: Order Comment: Speci men Type: BLOOD SPECIMEN Ordering Facility: External Submitter Address: , , Performed By: #### 1 798-8, 96084-8, 3039-3 #### [facility] CLIA [id number] [address] [place] [address] [place] Anion gap [Moles/Vol] 19 mmol/L High 8-15 [facility] Comment on above: Order Comment: Speci men Type: BLOOD SPECIMEN Ordering Facility: External Submitter Address: , , Performed By: #### 1 798-8, 44408-1, 3 #### [facility] CLIA [id number] [address] [place] [address] [place] AST [Catalytic activity/Vol] 62 U/L High 14-40 [facility] Comment on above: Order Comment: Speci men Type: BLOOD SPECIMEN Ordering Facility: External Submitter Address: , , Performed By: #### 1 798-8, 60803-0, 3039-3 #### [facility] CLIA [id number] [address] [place] [address] [place] Bilirubin [Mass/Vol] 2.3 mg/dL High 0.2-1.3 [facility] Comment on above: Order Comment: Speci men Type: BLOOD SPECIMEN Ordering Facility: External Submitter Address: , , Performed By: #### 1 798-8, 01124-2, 3 #### [facility] CLIA [id number] [address] [place] [address] [place] Calcium [Mass/Vol] 9.5 mg/dL Normal 8.5-10.2 [facility] Comment on above: Order Comment: Speci men Type: BLOOD SPECIMEN Ordering Facility: External Submitter Address: , , Performed By: #### 1 798-8, 93528-0, 3040-3 #### [facility] CLIA [id number] [address] [place] [address] [place] Chloride [Moles/Vol] 99 mmol/L Normal 98-107 [facility] Comment on above: Order Comment: Klaus colindres Type: BLOOD SPECIMEN Ordering Facility: External Submitter Address: , , Performed By: #### 1 798-8, 26265-2, 3040-3 #### [facility] CLIA [id number] [address] [place] [address] [place] CO2 [Moles/Vol] 24 mmol/L Normal 22-30 [facility] Comment on above: Order Comment: Klaus colindres Type: BLOOD SPECIMEN Ordering Facility: External Submitter Address: , , Performed By: #### 1 798-8, 42721-4, 3040-3 #### [facility] CLIA [id number] [address] [place] [address] [place] Creatinine [Mass/Vol] 1.44 mg/dL High 0.73-1.22 [facility] Comment on above: Order Comment: Klaus colindres Type: BLOOD SPECIMEN Ordering Facility: External Submitter Address: , , Performed By: #### 1 798-8, 90645-7, 3040-3 #### [facility] CLIA [id number] [address] [place] [address] [place] eGFRcr SerPlBld CKD-EPI 2020 63 mL/min/1.73m??? Normal >=60 [facility] Comment on above: Order Comment: Klaus colindres Type: BLOOD SPECIMEN Ordering Facility: External Submitter Address: , , Result Comment: Codie mated Glomerular Filtration Rate (eGFR) is calculated using the 2020 CKD-EPI creatinine equation. This equation utilizes serum creatinine, sex, and age as parameters. The creatinine assay has traceable calibration to isotope dilution-mass spectrometry. Refer to KDIGO guidelines for clinical interpretation. In patients with unstable renal function, e.g. those with acute kidney injury, the eGFR may not accurately reflect actual GFR. Performed By: #### 1 798-8, 71864-7, 0-3 #### [facility] CLIA [id number] [address] [place] [address] [place] Glucose [Mass/Vol] 93 mg/dL Normal 74-99 [facility] Comment on above: Order Comment: Klaus colindres Type: BLOOD SPECIMEN Ordering Facility: External Submitter Address: , , Result Comment: The [place] [employer] (ADA) provides guidance for cutoff values for fasting glucose and random glucose. The ADA defines fasting as no caloric intake for at least 8 hours. Fasting plasma glucose results between 100 to 125 mg/dL indicate increased risk for diabetes (prediabetes). Fasting plasma glucose results greater than or equal to 126 mg/dL meet the criteria for diagnosis of diabetes. In the absence of unequivocal hyperglycemia, results should be confirmed by repeat testing. In a patient with classic symptoms of hyperglycemia or hyperglycemic crisis, random plasma glucose results greater than or equal to 200 mg/dL meet the criteria for diagnosis of diabetes. Reference: Standards of Medical Care in Diabetes 2016, [place] [employer]. Diabetes Care. 2016.39(Suppl 1). Performed By: #### 1 798-8, 86284-7, 0-3 #### [facility] CLIA [id number] [address] [place] [address] [place] Potassium [Moles/Vol] 3.4 mmol/L Low 3.7-5.1 [facility] Comment on above: Order Comment: Klaus colindres Type: BLOOD SPECIMEN Ordering Facility: External Submitter Address: , , Performed By: #### 1 798-8, 53123-9, 0-3 #### [facility] CLIA [id number] [address] [place] [address] [place] Protein [Mass/Vol] 7.2 g/dL Normal 6.3-8.0 [facility] Comment on above: Order Comment: Klaus colindres Type: BLOOD SPECIMEN Ordering Facility: External Submitter Address: , , Performed By: #### 1 798-8, 65124-4, 0-3 #### [facility] CLIA [id number] [address] [place] Sodium [Moles/Vol] 142 mmol/L Normal 136-144 [facility] Comment on above: Order Comment: Speci men Type: BLOOD SPECIMEN Ordering Facility: External Submitter Address: , , Performed By: #### 1 798-8, 88148-6, 3040-3 #### [facility] CLIA [id number] [address] [place] [address] [place] Urea nitrogen [Mass/Vol] 26 mg/dL High 9-24 [facility] Comment on above: Order Comment: Speci men Type: BLOOD SPECIMEN Ordering Facility: External Submitter Address: , , Performed By: #### 1 798-8, 91957-8, 3040-3 #### [facility] CLIA [id number] [address] [place] [address] [place] Lipase SerPl-cCncon 10-29-19 25 Lipase [Catalytic activity/Vol] 85 U/L High 16-61 [facility] Comment on above: Order Comment: Speci men Type: BLOOD SPECIMEN Ordering Facility: External Submitter Address: , , Performed By: #### 1 798-8, 24526-8, 0-3 #### [facility] CLIA [id number] [address] [place] [address] CBC W Auto Differential pane l (Bld)on 10-11-2024 Basophils (Bld) [#/Vol] 0.04 10*3/uL Normal <0.11 [facility] Comment on above: Order Comment: Speci men Type: BLOOD SPECIMEN Ordering Facility: External Submitter Address: , , Performed By: #### 5 7021-8 #### [facility] CLIA [id number] [address] [place] [address] [facility] Basophils/100 WBC (Bld) 0.5 % Normal [facility] Comment on above: Order Comment: Speci men Type: BLOOD SPECIMEN Ordering Facility: External Submitter Address: , , Performed By: #### 5 7021-8 #### [facility] CLIA [id number] [address] [place] [address] [place] Differential cell count method Nom (Bld) Auto Normal [facility] Comment on above: Order Comment: Speci men Type: BLOOD SPECIMEN Ordering Facility: External Submitter Address: , , Performed By: #### 5 7021-8 #### [facility] CLIA [id number] [address] [place] [address] [place] Eosinophils (Bld) [#/Vol] 0.07 10*3/uL Normal <0.46 [facility] Comment on above: Order Comment: Speci men Type: BLOOD SPECIMEN Ordering Facility: External Submitter Address: , , Performed By: #### 5 7021-8 #### [facility] CLIA [id number] [address] [place] [address] [place] Eosinophils/100 WBC (Bld) 0.9 % Normal [facility] Comment on above: Order Comment: Speci men Type: BLOOD SPECIMEN Ordering Facility: External Submitter Address: , , Performed By: #### 5 7021-8 #### [facility] IA [id number] [address] [place] [address] [place] Erythrocyte distribution width (RBC) [Ratio] 14.3 % Normal 11.5-15.0 [facility] Comment on above: Order Comment: Speci men Type: BLOOD SPECIMEN Ordering Facility: External Submitter Address: , , Performed By: #### 5 7021-8 #### [facility] IA [id number] [address] [place] [address] [place] Hematocrit (Bld) [Volume fraction] 39.7 % Normal 39.0-51.0 [facility] Comment on above: Order Comment: Speci men Type: BLOOD SPECIMEN Ordering Facility: External Submitter Address: , , Performed By: #### 5 7021-8 #### [facility] CLIA [id number] [address] [place] [address] [place] Hemoglobin (Bld) [Mass/Vol] 12.7 g/dL Low 13.0-17.0 [facility] Comment on above: Order Comment: Speci men Type: BLOOD SPECIMEN Ordering Facility: External Submitter Address: , , Performed By: #### 5 7021-8 #### [facility] CLIA [id number] [address] [place] [address] [place] Immature granulocytes (Bld) [#/Vol] 0.03 10*3/uL Normal <0.10 [facility] Comment on above: Order Comment: Speci men Type: BLOOD SPECIMEN Ordering Facility: External Submitter Address: , , Performed By: #### 5 7021-8 #### [facility] CLIA [id number] [address] [place] [address] [place] Immature granulocytes/100 WBC (Bld) 0.4 % Normal [facility] Comment on above: Order Comment: Speci men Type: BLOOD SPECIMEN Ordering Facility: External Submitter Address: , , Performed By: #### 5 7021-8 #### [facility] CLIA [id number] [address] [place] [address] [place] Lymphocytes (Bld) [#/Vol] 0.67 10*3/uL Low 1.00-4.00 [facility] Comment on above: Order Comment: Speci men Type: BLOOD SPECIMEN Ordering Facility: External Submitter Address: , , Performed By: #### 5 7021-8 #### [facility] CLIA [id number] [address] [place] [address] [place] Lymphocytes/100 WBC (Bld) 8.9 % Normal [facility] Comment on above: Order Comment: Speci men Type: BLOOD SPECIMEN Ordering Facility: External Submitter Address: , , Performed By: #### 5 7021-8 #### [facility] CLIA [id number] [address] [place] [address] [place] MCH (RBC) [Entitic mass] 26.2 pg Normal 26.0-34.0 [facility] Comment on above: Order Comment: Speci men Type: BLOOD SPECIMEN Ordering Facility: External Submitter Address: , , Performed By: #### 5 7021-8 #### [facility] CLIA [id number] [address] [place] [address] [place] MCHC (RBC) [Mass/Vol] 32.0 g/dL Normal 30.5-36.0 [facility] Comment on above: Order Comment: Speci men Type: BLOOD SPECIMEN Ordering Facility: External Submitter Address: , , Performed By: #### 5 7021-8 #### [facility] CLIA [id number] [address] [place] [address] [place] MCV (RBC) [Entitic vol] 81.9 fL Normal 80.0-100.0 [facility] Comment on above: Order Comment: Speci men Type: BLOOD SPECIMEN Ordering Facility: External Submitter Address: , , Performed By: #### 5 7021-8 #### [facility] IA [id number] [address] [place] [address] [place] Monocytes (Bld) [#/Vol] 0.90 10*3/uL High <0.87 [facility] Comment on above: Order Comment: Speci men Type: BLOOD SPECIMEN Ordering Facility: External Submitter Address: , , Performed By: #### 5 7021-8 #### [facility] CLIA [id number] [address] [place] [address] [place] Monocytes/100 WBC (Bld) 12.0 % Normal [facility] Comment on above: Order Comment: Speci men Type: BLOOD SPECIMEN Ordering Facility: External Submitter Address: , , Performed By: #### 5 7021-8 #### [facility] IA [id number] [address] [place] [address] [place] Neutrophils (Bld) [#/Vol] 5.82 10*3/uL Normal 1.45-7.50 [facility] Comment on above: Order Comment: Speci men Type: BLOOD SPECIMEN Ordering Facility: External Submitter Address: , , Performed By: #### 5 7021-8 #### [facility] CLIA [id number] [address] [place] [address] [place] Neutrophils/100 WBC (Bld) 77.3 % Normal [facility] Comment on above: Order Comment: Speci men Type: BLOOD SPECIMEN Ordering Facility: External Submitter Address: , , Performed By: #### 5 7021-8 #### [facility] CLIA [id number] [address] [place] [address] [place] Nucleated RBC (Bld) [#/Vol] 10*3/uL Normal <0.01 [facility] Comment on above: Order Comment: Speci men Type: BLOOD SPECIMEN Ordering Facility: External Submitter Address: , , Performed By: #### 5 7021-8 #### [facility] CLIA [id number] [address] [place] [address] [place] Nucleated RBC/100 WBC (Bld) [Ratio] 0.0 /100 WBC Normal [facility] Comment on above: Order Comment: Speci men Type: BLOOD SPECIMEN Ordering Facility: External Submitter Address: , , Performed By: #### 5 7021-8 #### [facility] CLIA [id number] [address] [place] [address] [place] Platelet mean volume (Bld) [Entitic vol] 10.5 fL Normal 9.0-12.7 [facility] Comment on above: Order Comment: Speci men Type: BLOOD SPECIMEN Ordering Facility: External Submitter Address: , , Performed By: #### 5 7021-8 #### [facility] CLIA [id number] [address] [place] [address] [place] Platelets (Bld) [#/Vol] 211 10*3/uL Normal 150-400 [facility] Comment on above: Order Comment: Speci men Type: BLOOD SPECIMEN Ordering Facility: External Submitter Address: , , Performed By: #### 5 7021-8 #### [facility] CLIA [id number] [address] [place] [address] [place] RBC (Bld) [#/Vol] 4.85 10*6/uL Normal 4.20-6.00 [facility] Comment on above: Order Comment: Speci men Type: BLOOD SPECIMEN Ordering Facility: External Submitter Address: , , Performed By: #### 5 7021-8 #### [facility] CLIA [id number] [address] [place] WBC (Bld) [#/Vol] 7.53 10*3/uL Normal 3.70-11.00 [facility] Comment on above: Order Comment: Speci men Type: BLOOD SPECIMEN Ordering Facility: External Submitter Address: , , Performed By: #### 5 7021-8 #### [facility] CLIA [id number] [address] [place] [address] [place] Comprehensive metabolic 2000 panelon 10-11-2024 Albumin [Mass/Vol] 4.6 g/dL Normal 3.9-4.9 [facility] Comment on above: Order Comment: Speci men Type: BLOOD SPECIMEN Ordering Facility: External Submitter Address: , , Performed By: #### 1 798-8, 61478-4, 0-3 #### [facility] CLIA [id number] [address] [place] [address] [place] ALP [Catalytic activity/Vol] 66 U/L Normal 38-113 [facility] Comment on above: Order Comment: Speci men Type: BLOOD SPECIMEN Ordering Facility: External Submitter Address: , , Performed By: #### 1 798-8, 64845-3, 3040-3 #### [facility] CLIA [id number] [address] [place] [address] [place] ALT [Catalytic activity/Vol] 32 U/L Normal 10-54 [facility] Comment on above: Order Comment: Speci men Type: BLOOD SPECIMEN Ordering Facility: External Submitter Address: , , Performed By: #### 1 798-8, 71121-1, 3040-3 #### [facility] CLIA [id number] [address] [place] [address] [place] Anion gap [Moles/Vol] 14 mmol/L Normal 8-15 [facility] Comment on above: Order Comment: Speci men Type: BLOOD SPECIMEN Ordering Facility: External Submitter Address: , , Performed By: #### 1 798-8, 48933-0, 3040-3 #### [facility] CLIA [id number] [address] [place], [place] [address] [place] AST [Catalytic activity/Vol] 27 U/L Normal 14-40 [facility] Comment on above: Order Comment: Speci men Type: BLOOD SPECIMEN Ordering Facility: External Submitter Address: , , Performed By: #### 1 798-8, 83494-3, 3039-3 #### [facility] CLIA [id number] [address] [place] [address] [place] Bilirubin [Mass/Vol] 1.5 mg/dL High 0.2-1.3 [facility] Comment on above: Order Comment: Speci men Type: BLOOD SPECIMEN Ordering Facility: External Submitter Address: , , Performed By: #### 1 798-8, 15132-9, 3 #### [facility] CLIA [id number] [address] [place] [address] [place] Calcium [Mass/Vol] 9.3 mg/dL Normal 8.5-10.2 [facility] Comment on above: Order Comment: Speci men Type: BLOOD SPECIMEN Ordering Facility: External Submitter Address: , , Performed By: #### 1 798-8, 68606-2, 3039-3 #### [facility] CLIA [id number] [address] [place] [address] [place] Chloride [Moles/Vol] 102 mmol/L Normal 98-107 [facility] Comment on above: Order Comment: Speci men Type: BLOOD SPECIMEN Ordering Facility: External Submitter Address: , , Performed By: #### 1 798-8, 29878-1, 3039-3 #### [facility] CLIA [id number] [address] [place] [address] [place] CO2 [Moles/Vol] 26 mmol/L Normal 22-30 [facility] Comment on above: Order Comment: Speci men Type: BLOOD SPECIMEN Ordering Facility: External Submitter Address: , , Performed By: #### 1 798-8, 84744-8, 0-3 #### [facility] CLIA [id number] [address] [place] [address] [place] Creatinine [Mass/Vol] 0.92 mg/dL Normal 0.73-1.22 [facility] Comment on above: Order Comment: Klaus colindres Type: BLOOD SPECIMEN Ordering Facility: External Submitter Address: , , Performed By: #### 1 798-8, 08123-2, 3040-3 #### [facility] CLIA [id number] [address] [place] [address] [place] [facility] Creatinine and Glomerular filtration rate.predicted panel (S/P/Bld) 109 mL/min/1.73m??? Normal >=60 [facility] Comment on above: Order Comment: Klaus colindres Type: BLOOD SPECIMEN Ordering Facility: External Submitter Address: , , Result Comment: Codie mated Glomerular Filtration Rate (eGFR) is calculated using the 2020 CKD-EPI creatinine equation. This equation utilizes serum creatinine, sex, and age as parameters. The creatinine assay has traceable calibration to isotope dilution-mass spectrometry. Refer to KDIGO guidelines for clinical interpretation. In patients with unstable renal function, e.g. those with acute kidney injury, the eGFR may not accurately reflect actual GFR. Performed By: #### 1 798-8, 23413-9, 3040-3 #### [facility] CLIA [id number] [address] [place] [address] [place] Glucose [Mass/Vol] 91 mg/dL Normal 74-99 [facility] Comment on above: Order Comment: Klaus colindres Type: BLOOD SPECIMEN Ordering Facility: External Submitter Address: , , Result Comment: The [place] [employer] (ADA) provides guidance for cutoff values for fasting glucose and random glucose. The ADA defines fasting as no caloric intake for at least 8 hours. Fasting plasma glucose results between 100 to 125 mg/dL indicate increased risk for diabetes (prediabetes). Fasting plasma glucose results greater than or equal to 126 mg/dL meet the criteria for diagnosis of diabetes. In the absence of unequivocal hyperglycemia, results should be confirmed by repeat testing. In a patient with classic symptoms of hyperglycemia or hyperglycemic crisis, random plasma glucose results greater than or equal to 200 mg/dL meet the criteria for diagnosis of diabetes. Reference: Standards of Medical Care in Diabetes 2016, [place] [employer]. Diabetes Care. 2016.39(Suppl 1). Performed By: #### 1 798-8, 96293-5, 0-3 #### [facility] CLIA [id number] [address] [place] [address] [place] Potassium [Moles/Vol] 3.3 mmol/L Low 3.7-5.1 [facility] Comment on above: Order Comment: Speci men Type: BLOOD SPECIMEN Ordering Facility: External Submitter Address: , , Performed By: #### 1 798-8, 12536-4, 3039-3 #### [facility] CLIA [id number] [address] [place] [address] [place] Protein [Mass/Vol] 7.0 g/dL Normal 6.3-8.0 [facility] Comment on above: Order Comment: Speci men Type: BLOOD SPECIMEN Ordering Facility: External Submitter Address: , , Performed By: #### 1 798-8, 93641-8, 3039-3 #### [facility] CLIA [id number] [address] [place] [address] [place] Sodium [Moles/Vol] 142 mmol/L Normal 136-144 [facility] Comment on above: Order Comment: Speci men Type: BLOOD SPECIMEN Ordering Facility: External Submitter Address: , , Performed By: #### 1 798-8, 82269-4, 3039-3 #### [facility] CLIA [id number] [address] [place] [address] [place] Urea nitrogen [Mass/Vol] 15 mg/dL Normal 9-24 [facility] Comment on above: Order Comment: Speci men Type: BLOOD SPECIMEN Ordering Facility: External Submitter Address: , , Performed By: #### 1 798-8, 39759-2, 0-3 #### [facility] CLIA [id number] [address] [place] [address] [place] Lipase SerPl-cCncon 10-12-19 25 Lipase [Catalytic activity/Vol] 101 U/L High 16-61 [facility] Comment on above: Order Comment: Speci men Type: BLOOD SPECIMEN Ordering Facility: External Submitter Address: , , Performed By: #### 1 798-8, 96571-3, 3 #### [facility] CLIA [id number] [address] [place] [address] [place] CBC W Auto Differential pane l (Bld)on 09-30-2024 Basophils (Bld) [#/Vol] 0.03 10*3/uL Normal <0.11 [facility] Comment on above: Order Comment: Speci men Type: BLOOD SPECIMEN Ordering Facility: External Submitter Address: , , Performed By: #### 1 798-8, 98041-2, 3 #### [facility] CLIA [id number] [address] [place] [address] [place] [place] Basophils/100 WBC (Bld) 0.4 % Normal [facility] Comment on above: Order Comment: Speci men Type: BLOOD SPECIMEN Ordering Facility: External Submitter Address: , , Performed By: #### 1 798-8, , 3 #### [facility] CLIA [id number] [address] [place] [address] [place] Differential cell count method Nom (Bld) Auto Normal [facility] Comment on above: Order Comment: Speci men Type: BLOOD SPECIMEN Ordering Facility: External Submitter Address: , , Performed By: #### 1 798-8, , 3 #### [facility] CLIA [id number] [address] [place] [address] [place] Eosinophils (Bld) [#/Vol] 0.04 10*3/uL Normal <0.46 [facility] Comment on above: Order Comment: Speci men Type: BLOOD SPECIMEN Ordering Facility: External Submitter Address: , , Performed By: #### 1 798-8, , 3 #### [facility] CLIA [id number] [address] [place] [address] [place] Eosinophils/100 WBC (Bld) 0.5 % Normal [facility] Comment on above: Order Comment: Speci men Type: BLOOD SPECIMEN Ordering Facility: External Submitter Address: , , Performed By: #### 1 798-8, 77475-7, 0-3 #### [facility] CLIA [id number] [address] [place] [address] [place] Erythrocyte distribution width (RBC) [Ratio] 14.5 % Normal 11.5-15.0 [facility] Comment on above: Order Comment: Speci men Type: BLOOD SPECIMEN Ordering Facility: External Submitter Address: , , Performed By: #### 1 798-8, 49395-3, 3039-3 #### [facility] CLIA [id number] [address] [place] [address] [place] Hematocrit (Bld) [Volume fraction] 38.8 % Low 39.0-51.0 [facility] Comment on above: Order Comment: Speci men Type: BLOOD SPECIMEN Ordering Facility: External Submitter Address: , , Performed By: #### 1 798-8, 19006-7, 3 #### [facility] CLIA [id number] [address] [place] [address] [place] Hemoglobin (Bld) [Mass/Vol] 12.3 g/dL Low 13.0-17.0 [facility] Comment on above: Order Comment: Speci men Type: BLOOD SPECIMEN Ordering Facility: External Submitter Address: , , Performed By: #### 1 798-8, 79563-5, 3039-3 #### [facility] CLIA [id number] [address] [place] [address] [place] Immature granulocytes (Bld) [#/Vol] 10*3/uL Normal <0.10 [facility] Comment on above: Order Comment: Speci men Type: BLOOD SPECIMEN Ordering Facility: External Submitter Address: , , Performed By: #### 1 798-8, 90832-5, 3039-3 #### [facility] CLIA [id number] [address] [place] [address] [place] Immature granulocytes/100 WBC (Bld) 0.3 % Normal [facility] Comment on above: Order Comment: Speci men Type: BLOOD SPECIMEN Ordering Facility: External Submitter Address: , , Performed By: #### 1 798-8, 58227-0, 3 #### [facility] CLIA [id number] [address] [place] [address] Lymphocytes (Bld) [#/Vol] 0.51 10*3/uL Low 1.00-4.00 [facility] Comment on above: Order Comment: Speci men Type: BLOOD SPECIMEN Ordering Facility: External Submitter Address: , , Performed By: #### 1 798-8, 73911-7, 3 #### [facility] CLIA [id number] [address] [place] [address] Lymphocytes/100 WBC (Bld) 6.5 % Normal [facility] Comment on above: Order Comment: Speci men Type: BLOOD SPECIMEN Ordering Facility: External Submitter Address: , , Performed By: #### 1 798-8, , 3 #### [facility] CLIA [id number] [address] [place] [address] OF [facility] MCH (RBC) [Entitic mass] 26.1 pg Normal 26.0-34.0 [facility] Comment on above: Order Comment: Speci men Type: BLOOD SPECIMEN Ordering Facility: External Submitter Address: , , Performed By: #### 1 798-8, 90919-7, 3 #### [facility] CLIA [id number] [address] [place] [address] STATES [place] [facility] MCHC (RBC) [Mass/Vol] 31.7 g/dL Normal 30.5-36.0 [facility] Comment on above: Order Comment: Speci men Type: BLOOD SPECIMEN Ordering Facility: External Submitter Address: , , Performed By: #### 1 798-8, 91818-2, 3039-3 #### [facility] CLIA [id number] [address] [place] [address] [place] MCV (RBC) [Entitic vol] 82.4 fL Normal 80.0-100.0 [facility] Comment on above: Order Comment: Speci men Type: BLOOD SPECIMEN Ordering Facility: External Submitter Address: , , Performed By: #### 1 798-8, 33976-7, 3 #### [facility] CLIA [id number] [address] [place] [address] [place] Monocytes (Bld) [#/Vol] 0.68 10*3/uL Normal <0.87 [facility] Comment on above: Order Comment: Speci men Type: BLOOD SPECIMEN Ordering Facility: External Submitter Address: , , Performed By: #### 1 798-8, 45358-5, 3 #### [facility] CLIA [id number] [address] [place] [address] [place] Monocytes/100 WBC (Bld) 8.6 % Normal [facility] Comment on above: Order Comment: Speci men Type: BLOOD SPECIMEN Ordering Facility: External Submitter Address: , , Performed By: #### 1 798-8, , 3 #### [facility] CLIA [id number] [address] [place] [address] [place] Neutrophils (Bld) [#/Vol] 6.59 10*3/uL Normal 1.45-7.50 [facility] Comment on above: Order Comment: Speci men Type: BLOOD SPECIMEN Ordering Facility: External Submitter Address: , , Performed By: #### 1 798-8, , 3 #### [facility] CLIA [id number] [address] [place] [address] [place] Neutrophils/100 WBC (Bld) 83.7 % Normal [facility] Comment on above: Order Comment: Speci men Type: BLOOD SPECIMEN Ordering Facility: External Submitter Address: , , Performed By: #### 1 798-8, 14887-1, 3 #### [facility] CLIA [id number] [address] [place] [address] [place] Nucleated RBC (Bld) [#/Vol] 10*3/uL Normal <0.01 [facility] Comment on above: Order Comment: Speci men Type: BLOOD SPECIMEN Ordering Facility: External Submitter Address: , , Performed By: #### 1 798-8, 36192-1, 3 #### [facility] CLIA [id number] [address] [place] [address] [place] Nucleated RBC/100 WBC (Bld) [Ratio] 0.0 /100 WBC Normal [facility] Comment on above: Order Comment: Speci men Type: BLOOD SPECIMEN Ordering Facility: External Submitter Address: , , Performed By: #### 1 798-8, 52010-1, 3 #### [facility] CLIA [id number] [address] [place] [address] [place] Platelet mean volume (Bld) [Entitic vol] 11.1 fL Normal 9.0-12.7 [facility] Comment on above: Order Comment: Speci men Type: BLOOD SPECIMEN Ordering Facility: External Submitter Address: , , Performed By: #### 1 798-8, , 3 #### [facility] CLIA [id number] [address] [place] [address] [place] Platelets (Bld) [#/Vol] 207 10*3/uL Normal 150-400 [facility] Comment on above: Order Comment: Speci men Type: BLOOD SPECIMEN Ordering Facility: External Submitter Address: , , Performed By: #### 1 798-8, , 3 #### [facility] CLIA [id number] [address] [place] [address] [place] RBC (Bld) [#/Vol] 4.71 10*6/uL Normal 4.20-6.00 [facility] Comment on above: Order Comment: Speci men Type: BLOOD SPECIMEN Ordering Facility: External Submitter Address: , , Performed By: #### 1 798-8, 05371-9, 3039-3 #### [facility] CLIA [id number] [address] [place] [address] [place] WBC (Bld) [#/Vol] 7.87 10*3/uL Normal 3.70-11.00 [facility] Comment on above: Order Comment: Speci men Type: BLOOD SPECIMEN Ordering Facility: External Submitter Address: , , Performed By: #### 1 798-8, 58754-5, 3040-3 #### [facility] CLIA [id number] [address] [place] [address] [place] Comprehensive metabolic 2000 panelon 09-30-2024 Albumin [Mass/Vol] 4.7 g/dL Normal 3.9-4.9 [facility] Comment on above: Order Comment: Speci men Type: BLOOD SPECIMEN Ordering Facility: External Submitter Address: , , Performed By: #### 2 4323-8, #### [facility] CLIA [id number] [address] [place] [address] [place] ALP [Catalytic activity/Vol] 61 U/L Normal 38-113 [facility] Comment on above: Order Comment: Speci men Type: BLOOD SPECIMEN Ordering Facility: External Submitter Address: , , Performed By: #### 2 4323-8, #### [facility] CLIA [id number] [address] [place] [address] [place] ALT [Catalytic activity/Vol] 29 U/L Normal 10-54 [facility] Comment on above: Order Comment: Speci men Type: BLOOD SPECIMEN Ordering Facility: External Submitter Address: , , Performed By: #### 2 4323-8, #### [facility] CLIA [id number] [address] [place] [address] [place] Anion gap [Moles/Vol] 15 mmol/L Normal 8-15 [facility] Comment on above: Order Comment: Speci men Type: BLOOD SPECIMEN Ordering Facility: External Submitter Address: , , Performed By: #### 2 4323-8, #### [facility] CLIA [id number] [address] [place] [address] [place] AST [Catalytic activity/Vol] 24 U/L Normal 14-40 [facility] Comment on above: Order Comment: Speci men Type: BLOOD SPECIMEN Ordering Facility: External Submitter Address: , , Performed By: #### 2 4322-11, #### [facility] CLIA [id number] [address] [place] [address] [place] Bilirubin [Mass/Vol] 1.7 mg/dL High 0.2-1.3 [facility] Comment on above: Order Comment: Speci men Type: BLOOD SPECIMEN Ordering Facility: External Submitter Address: , , Performed By: #### 2 4322-11, #### [facility] CLIA [id number] [address] [place] [address] [place] Calcium [Mass/Vol] 10.2 mg/dL Normal 8.5-10.2 [facility] Comment on above: Order Comment: Speci men Type: BLOOD SPECIMEN Ordering Facility: External Submitter Address: , , Performed By: #### 2 4322-11, #### [facility] CLIA [id number] [address] [place] [address] [place] Chloride [Moles/Vol] 100 mmol/L Normal 98-107 [facility] Comment on above: Order Comment: Speci men Type: BLOOD SPECIMEN Ordering Facility: External Submitter Address: , , Performed By: #### 2 4322-11, #### [facility] CLIA [id number] [address] [place] [address] [place] CO2 [Moles/Vol] 26 mmol/L Normal 22-30 [facility] Comment on above: Order Comment: Speci men Type: BLOOD SPECIMEN Ordering Facility: External Submitter Address: , , Performed By: #### 2 4322-11, #### [facility] CLIA [id number] [address] [place] [address] [place] Creatinine [Mass/Vol] 1.01 mg/dL Normal 0.73-1.22 [facility] Comment on above: Order Comment: Speci men Type: BLOOD SPECIMEN Ordering Facility: External Submitter Address: , , Performed By: #### 2 4328, #### [facility] CLIA [id number] [address] [place], [place] [address] [place] Creatinine and Glomerular filtration rate.predicted panel (S/P/Bld) 97 mL/min/1.73m??? Normal >=60 [facility] Comment on above: Order Comment: Speci jens Type: BLOOD SPECIMEN Ordering Facility: External Submitter Address: , , Result Comment: Codie mated Glomerular Filtration Rate (eGFR) is calculated using the 2020 CKD-EPI creatinine equation. This equation utilizes serum creatinine, sex, and age as parameters. The creatinine assay has traceable calibration to isotope dilution-mass spectrometry. Refer to KDIGO guidelines for clinical interpretation. In patients with unstable renal function, e.g. those with acute kidney injury, the eGFR may not accurately reflect actual GFR. Performed By: #### 2 43206-11, #### [facility] CLIA [id number] [address] [place] [address] [place] Glucose [Mass/Vol] 89 mg/dL Normal 74-99 [facility] Comment on above: Order Comment: Specmanny colindres Type: BLOOD SPECIMEN Ordering Facility: External Submitter Address: , , Result Comment: The [place] [employer] (ADA) provides guidance for cutoff values for fasting glucose and random glucose. The ADA defines fasting as no caloric intake for at least 8 hours. Fasting plasma glucose results between 100 to 125 mg/dL indicate increased risk for diabetes (prediabetes). Fasting plasma glucose results greater than or equal to 126 mg/dL meet the criteria for diagnosis of diabetes. In the absence of unequivocal hyperglycemia, results should be confirmed by repeat testing. In a patient with classic symptoms of hyperglycemia or hyperglycemic crisis, random plasma glucose results greater than or equal to 200 mg/dL meet the criteria for diagnosis of diabetes. Reference: Standards of Medical Care in Diabetes 2016, [place] [employer]. Diabetes Care. 2016.39(Suppl 1). Performed By: #### 2 4323-8, #### [facility] CLIA [id number] [address] [place] [address] [place] Potassium [Moles/Vol] 3.6 mmol/L Low 3.7-5.1 [facility] Comment on above: Order Comment: Speci men Type: BLOOD SPECIMEN Ordering Facility: External Submitter Address: , , Performed By: #### 2 4322-11, #### [facility] CLIA [id number] [address] [place] [address] [place] Protein [Mass/Vol] 7.3 g/dL Normal 6.3-8.0 [facility] Comment on above: Order Comment: Speci men Type: BLOOD SPECIMEN Ordering Facility: External Submitter Address: , , Performed By: #### 2 4322-11, #### [facility] CLIA [id number] [address] [place] [address] [place] Sodium [Moles/Vol] 141 mmol/L Normal 136-144 [facility] Comment on above: Order Comment: Speci men Type: BLOOD SPECIMEN Ordering Facility: External Submitter Address: , , Performed By: #### 2 4322-11, #### [facility] CLIA [id number] [address] [place] [address] [place] Urea nitrogen [Mass/Vol] 15 mg/dL Normal 9-24 [facility] Comment on above: Order Comment: Speci men Type: BLOOD SPECIMEN Ordering Facility: External Submitter Address: , , Performed By: #### 2 4322-11, #### [facility] CLIA [id number] [address] [place] [address] [place] Magnesium SerPl-mCncon 09-30 Magnesium [Mass/Vol] 2.1 mg/dL Normal 1.7-2.3 [facility] Comment on above: Order Comment: Speci men Type: BLOOD SPECIMEN Ordering Facility: External Submitter Address: , , Performed By: #### 2 43206-11, #### [facility] CLIA [id number] [address] [place] [address] [place] CBC W Auto Differential pane l (Bld)on 09-20-2024 Basophils (Bld) [#/Vol] 0.03 10*3/uL Normal <0.11 [facility] Comment on above: Order Comment: Speci men Type: BLOOD SPECIMEN Ordering Facility: External Submitter Address: , , Performed By: #### 1 798-8, 91411-3, 3039-3 #### [facility] CLIA [id number] [address] [place] [address] [place] Basophils/100 WBC (Bld) 0.5 % Normal [facility] Comment on above: Order Comment: Speci men Type: BLOOD SPECIMEN Ordering Facility: External Submitter Address: , , Performed By: #### 1 798-8, 56563-7, 3 #### [facility] CLIA [id number] [address] [place] [address] [place] Differential cell count method Nom (Bld) Auto Normal [facility] Comment on above: Order Comment: Speci men Type: BLOOD SPECIMEN Ordering Facility: External Submitter Address: , , Performed By: #### 1 798-8, 29586-4, 3 #### [facility] CLIA [id number] [address] [place] [address] [place] Eosinophils (Bld) [#/Vol] 0.05 10*3/uL Normal <0.46 [facility] Comment on above: Order Comment: Speci men Type: BLOOD SPECIMEN Ordering Facility: External Submitter Address: , , Performed By: #### 1 798-8, , 3 #### [facility] CLIA [id number] [address] [place] [address] [place] Eosinophils/100 WBC (Bld) 0.8 % [facility] Comment on above: Order Comment: Speci men Type: BLOOD SPECIMEN Ordering Facility: External Submitter Address: , , Performed By: #### 1 798-8, 07261-7, 3039-3 #### [facility] CLIA [id number] [address] [place] [address] [place] Erythrocyte distribution width (RBC) [Ratio] 15.5 % High 11.5-15.0 [facility] Comment on above: Order Comment: Speci men Type: BLOOD SPECIMEN Ordering Facility: External Submitter Address: , , Performed By: #### 1 798-8, 51148-3, 3 #### [facility] CLIA [id number] [address] [place] [address] [place] Hematocrit (Bld) [Volume fraction] 36.3 % Low 39.0-51.0 [facility] Comment on above: Order Comment: Speci men Type: BLOOD SPECIMEN Ordering Facility: External Submitter Address: , , Performed By: #### 1 798-8, 38669-4, 3 #### [facility] CLIA [id number] [address] [place] [address] [place] Hemoglobin (Bld) [Mass/Vol] 11.9 g/dL Low 13.0-17.0 [facility] Comment on above: Order Comment: Speci men Type: BLOOD SPECIMEN Ordering Facility: External Submitter Address: , , Performed By: #### 1 798-8, 41590-6, 3 #### [facility] CLIA [id number] [address] [place] [address] [place] Immature granulocytes (Bld) [#/Vol] 10*3/uL Normal <0.10 [facility] Comment on above: Order Comment: Speci men Type: BLOOD SPECIMEN Ordering Facility: External Submitter Address: , , Performed By: #### 1 798-8, , 3 #### [facility] CLIA [id number] [address] [place] [address] [place] Immature granulocytes/100 WBC (Bld) 0.3 % Normal [facility] Comment on above: Order Comment: Speci men Type: BLOOD SPECIMEN Ordering Facility: External Submitter Address: , , Performed By: #### 1 798-8, 75919-4, 3 #### [facility] CLIA [id number] [address] [place] [address] [place] Lymphocytes (Bld) [#/Vol] 0.60 10*3/uL Low 1.00-4.00 [facility] Comment on above: Order Comment: Speci men Type: BLOOD SPECIMEN Ordering Facility: External Submitter Address: , , Performed By: #### 1 798-8, 62562-3, 3 #### [facility] CLIA [id number] [address] [place] [address] [place] Lymphocytes/100 WBC (Bld) 9.1 % Normal [facility] Comment on above: Order Comment: Speci men Type: BLOOD SPECIMEN Ordering Facility: External Submitter Address: , , Performed By: #### 1 798-8, 42521-2, 3 #### [facility] CLIA [id number] [address] [place] [address] [place] MCH (RBC) [Entitic mass] 27.0 pg Normal 26.0-34.0 [facility] Comment on above: Order Comment: Speci men Type: BLOOD SPECIMEN Ordering Facility: External Submitter Address: , , Performed By: #### 1 798-8, , 3 #### [facility] CLIA [id number] [address] [place] [address] [place] MCHC (RBC) [Mass/Vol] 32.8 g/dL Normal 30.5-36.0 [facility] Comment on above: Order Comment: Speci men Type: BLOOD SPECIMEN Ordering Facility: External Submitter Address: , , Performed By: #### 1 798-8, , 3 #### [facility] CLIA [id number] [address] [place] [address] [place] MCV (RBC) [Entitic vol] 82.3 fL Normal 80.0-100.0 [facility] Comment on above: Order Comment: Speci men Type: BLOOD SPECIMEN Ordering Facility: External Submitter Address: , , Performed By: #### 1 798-8, 90965-6, 3 #### [facility] CLIA [id number] [address] [place] [address] [place] Monocytes (Bld) [#/Vol] 0.49 10*3/uL Normal <0.87 [facility] Comment on above: Order Comment: Speci men Type: BLOOD SPECIMEN Ordering Facility: External Submitter Address: , , Performed By: #### 1 798-8, 68748-0, 3 #### [facility] CLIA [id number] [address] [place] [address] [place] Monocytes/100 WBC (Bld) 7.4 % Normal [facility] Comment on above: Order Comment: Speci men Type: BLOOD SPECIMEN Ordering Facility: External Submitter Address: , , Performed By: #### 1 798-8, , 3 #### [facility] CLIA [id number] [address] [place] [address] [place] Neutrophils (Bld) [#/Vol] 5.42 10*3/uL Normal 1.45-7.50 [facility] Comment on above: Order Comment: Speci men Type: BLOOD SPECIMEN Ordering Facility: External Submitter Address: , , Performed By: #### 1 798-8, , 3 #### [facility] CLIA [id number] [address] [place] [address] [place] Neutrophils/100 WBC (Bld) 81.9 % Normal [facility] Comment on above: Order Comment: Speci men Type: BLOOD SPECIMEN Ordering Facility: External Submitter Address: , , Performed By: #### 1 798-8, , 3 #### [facility] CLIA [id number] [address] [place] [address] [place] Nucleated RBC (Bld) [#/Vol] 10*3/uL Normal <0.01 [facility] Comment on above: Order Comment: Speci men Type: BLOOD SPECIMEN Ordering Facility: External Submitter Address: , , Performed By: #### 1 798-8, 94029-2, 3 #### [facility] CLIA [id number] [address] [place] [address] [place] Nucleated RBC/100 WBC (Bld) [Ratio] 0.0 /100 WBC Normal [facility] Comment on above: Order Comment: Speci men Type: BLOOD SPECIMEN Ordering Facility: External Submitter Address: , , Performed By: #### 1 798-8, 35380-6, 3 #### [facility] CLIA [id number] [address] [place] [address] [place] Platelet mean volume (Bld) [Entitic vol] 11.2 fL Normal 9.0-12.7 [facility] Comment on above: Order Comment: Speci men Type: BLOOD SPECIMEN Ordering Facility: External Submitter Address: , , Performed By: #### 1 798-8, , 3 #### [facility] CLIA [id number] [address] [place] [address] [place] Platelets (Bld) [#/Vol] 200 10*3/uL Normal 150-400 [facility] Comment on above: Order Comment: Speci men Type: BLOOD SPECIMEN Ordering Facility: External Submitter Address: , , Performed By: #### 1 798-8, 20498-5, 3 #### [facility] CLIA [id number] [address] [place] [address] [place] RBC (Bld) [#/Vol] 4.41 10*6/uL Normal 4.20-6.00 [facility] Comment on above: Order Comment: Speci jens Type: BLOOD SPECIMEN Ordering Facility: External Submitter Address: , , Performed By: #### 1 798-8, 04457-2, 3 #### [facility] CLIA [id number] [address] [place] [address] [place] WBC (Bld) [#/Vol] 6.61 10*3/uL Normal 3.70-11.00 [facility] Comment on above: Order Comment: Speci men Type: BLOOD SPECIMEN Ordering Facility: External Submitter Address: , , Performed By: #### 1 798-8, 19713-5, 3039-3 #### [facility] CLIA [id number] [address] [place] [address] [place] Comprehensive metabolic 2000 panelon 09-20-2024 Albumin [Mass/Vol] 4.4 g/dL Normal 3.9-4.9 [facility] Comment on above: Order Comment: Speci men Type: BLOOD SPECIMEN Ordering Facility: External Submitter Address: , , Performed By: #### 1 798-8, 88319-5, 0-3 #### [facility] CLIA [id number] [address] [place] [address] [place] ALP [Catalytic activity/Vol] 63 U/L Normal 38-113 [facility] Comment on above: Order Comment: Speci men Type: BLOOD SPECIMEN Ordering Facility: External Submitter Address: , , Performed By: #### 1 798-8, 83927-7, 0-3 #### [facility] CLIA [id number] [address] [place] [address] [facility] ALT [Catalytic activity/Vol] 39 U/L Normal 10-54 [facility] Comment on above: Order Comment: Speci men Type: BLOOD SPECIMEN Ordering Facility: External Submitter Address: , , Performed By: #### 1 798-8, 75277-8, 0-3 #### [facility] CLIA [id number] [address] [place] [address] [place] Anion gap [Moles/Vol] 12 mmol/L Normal 8-[address] [facility] Comment on above: Order Comment: Speci men Type: BLOOD SPECIMEN Ordering Facility: External Submitter Address: , , Performed By: #### 1 798-8, 18421-1, 0-3 #### [facility] CLIA [id number] [address] [place] [address] [place] AST [Catalytic activity/Vol] 25 U/L Normal 14-40 [facility] Comment on above: Order Comment: Speci men Type: BLOOD SPECIMEN Ordering Facility: External Submitter Address: , , Performed By: #### 1 798-8, 96067-9, 0-3 #### [facility] CLIA [id number] [address] [place] [address] [place] Bilirubin [Mass/Vol] 1.0 mg/dL Normal 0.2-1.3 [facility] Comment on above: Order Comment: Speci men Type: BLOOD SPECIMEN Ordering Facility: External Submitter Address: , , Performed By: #### 1 798-8, 37792-5, 0-3 #### [facility] CLIA [id number] [address] [place] [address] [place] Calcium [Mass/Vol] 9.0 mg/dL Normal 8.5-10.2 [facility] Comment on above: Order Comment: Speci men Type: BLOOD SPECIMEN Ordering Facility: External Submitter Address: , , Performed By: #### 1 798-8, 98414-3, 3039-3 #### [facility] CLIA [id number] [address] [place] [address] [place] Chloride [Moles/Vol] 103 mmol/L Normal 98-107 [facility] Comment on above: Order Comment: Speci men Type: BLOOD SPECIMEN Ordering Facility: External Submitter Address: , , Performed By: #### 1 798-8, 88470-9, 3039-3 #### [facility] CLIA [id number] [address] [place] [address] [place] CO2 [Moles/Vol] 26 mmol/L Normal 22-30 [facility] Comment on above: Order Comment: Speci men Type: BLOOD SPECIMEN Ordering Facility: External Submitter Address: , , Performed By: #### 1 798-8, 65854-5, 0-3 #### [facility] CLIA [id number] [address] [place] [address] [place] Creatinine [Mass/Vol] 0.96 mg/dL Normal 0.73-1.22 [facility] Comment on above: Order Comment: Speci men Type: BLOOD SPECIMEN Ordering Facility: External Submitter Address: , , Performed By: #### 1 798-8, 75315-8, 0-3 #### [facility] CLIA [id number] [address] [place] [address] [place] Creatinine and Glomerular filtration rate.predicted panel (S/P/Bld) 103 mL/min/1.73m??? Normal >=60 [facility] Comment on above: Order Comment: Klaus colindres Type: BLOOD SPECIMEN Ordering Facility: External Submitter Address: , , Result Comment: Codie mated Glomerular Filtration Rate (eGFR) is calculated using the 2020 CKD-EPI creatinine equation. This equation utilizes serum creatinine, sex, and age as parameters. The creatinine assay has traceable calibration to isotope dilution-mass spectrometry. Refer to KDIGO guidelines for clinical interpretation. In patients with unstable renal function, e.g. those with acute kidney injury, the eGFR may not accurately reflect actual GFR. Performed By: #### 1 798-8, 66413-5, 3040-3 #### [facility] CLIA [id number] [address] [place], [place] [address] [place] Glucose [Mass/Vol] 100 mg/dL High 74-99 [facility] Comment on above: Order Comment: Klaus colindres Type: BLOOD SPECIMEN Ordering Facility: External Submitter Address: , , Result Comment: The [place] [employer] (ADA) provides guidance for cutoff values for fasting glucose and random glucose. The ADA defines fasting as no caloric intake for at least 8 hours. Fasting plasma glucose results between 100 to 125 mg/dL indicate increased risk for diabetes (prediabetes). Fasting plasma glucose results greater than or equal to 126 mg/dL meet the criteria for diagnosis of diabetes. In the absence of unequivocal hyperglycemia, results should be confirmed by repeat testing. In a patient with classic symptoms of hyperglycemia or hyperglycemic crisis, random plasma glucose results greater than or equal to 200 mg/dL meet the criteria for diagnosis of diabetes. Reference: Standards of Medical Care in Diabetes 2016, [place] [employer]. Diabetes Care. 2016.39(Suppl 1). Performed By: #### 1 798-8, 73276-3, 3040-3 #### [facility] CLIA [id number] [address] [place] [address] [place] Potassium [Moles/Vol] 2.7 mmol/L Low 3.7-5.1 [facility] Comment on above: Order Comment: Speci men Type: BLOOD SPECIMEN Ordering Facility: External Submitter Address: , , Performed By: #### 1 798-8, 70905-8, 0-3 #### [facility] CLIA [id number] [address] [place] [address] [facility] Protein [Mass/Vol] 6.7 g/dL Normal 6.3-8.0 [facility] Comment on above: Order Comment: Speci men Type: BLOOD SPECIMEN Ordering Facility: External Submitter Address: , , Performed By: #### 1 798-8, 85591-5, 0-3 #### [facility] CLIA [id number] [address] [place] [address] [place] Sodium [Moles/Vol] 141 mmol/L Normal 136-144 [facility] Comment on above: Order Comment: Speci men Type: BLOOD SPECIMEN Ordering Facility: External Submitter Address: , , Performed By: #### 1 798-8, 74278-3, 3 #### [facility] CLIA [id number] [address] [place] [address] [place] Urea nitrogen [Mass/Vol] 11 mg/dL Normal 9-24 [facility] Comment on above: Order Comment: Speci men Type: BLOOD SPECIMEN Ordering Facility: External Submitter Address: , , Performed By: #### 1 798-8, 53426-2, 3 #### [facility] CLIA [id number] [address] [place] [address] [place] Lipase SerPl-cCncon 09-21-19 25 Lipase [Catalytic activity/Vol] 84 U/L High 16-61 [facility] Comment on above: Order Comment: Speci men Type: BLOOD SPECIMEN Ordering Facility: External Submitter Address: , , Performed By: #### 1 798-8, 84336-2, 0-3 #### [facility] CLIA [id number] [address] [place] [address] [place] CBC W Auto Differential pane l (Bld)on 09-13-2024 Basophils (Bld) [#/Vol] 0.03 10*3/uL Normal <0.11 [facility] Comment on above: Order Comment: Speci men Type: BLOOD SPECIMEN Ordering Facility: External Submitter Address: , , Performed By: #### 1 798-8, 72342-6, 3 #### [facility] CLIA [id number] [address] [place] [address] [place] Basophils/100 WBC (Bld) 0.4 % Normal [facility] Comment on above: Order Comment: Speci men Type: BLOOD SPECIMEN Ordering Facility: External Submitter Address: , , Performed By: #### 1 798-8, 18029-5, 3 #### [facility] CLIA [id number] [address] [place] [address] [place] Differential cell count method Nom (Bld) Auto Normal [facility] Comment on above: Order Comment: Speci men Type: BLOOD SPECIMEN Ordering Facility: External Submitter Address: , , Performed By: #### 1 798-8, 53511-8, 3 #### [facility] CLIA [id number] [address] [place] [address] [place] Eosinophils (Bld) [#/Vol] 0.07 10*3/uL Normal <0.46 [facility] Comment on above: Order Comment: Speci men Type: BLOOD SPECIMEN Ordering Facility: External Submitter Address: , , Performed By: #### 1 798-8, , 3 #### [facility] CLIA [id number] [address] [place] [address] [place] Eosinophils/100 WBC (Bld) 0.9 % [facility] Comment on above: Order Comment: Speci men Type: BLOOD SPECIMEN Ordering Facility: External Submitter Address: , , Performed By: #### 1 798-8, 96094-0, 3 #### [facility] CLIA [id number] [address] [place] [address] [place] Erythrocyte distribution width (RBC) [Ratio] 16.1 % High 11.5-15.0 [facility] Comment on above: Order Comment: Speci men Type: BLOOD SPECIMEN Ordering Facility: External Submitter Address: , , Performed By: #### 1 798-8, 04820-1, 3 #### [facility] CLIA [id number] [address] [place] [address] [place] Hematocrit (Bld) [Volume fraction] 39.4 % Normal 39.0-51.0 [facility] Comment on above: Order Comment: Speci men Type: BLOOD SPECIMEN Ordering Facility: External Submitter Address: , , Performed By: #### 1 798-8, , 3 #### [facility] CLIA [id number] [address] [place] [address] [place] Hemoglobin (Bld) [Mass/Vol] 12.8 g/dL Low 13.0-17.0 [facility] Comment on above: Order Comment: Speci men Type: BLOOD SPECIMEN Ordering Facility: External Submitter Address: , , Performed By: #### 1 798-8, , 3 #### [facility] CLIA [id number] [address] [place] [address] [place] Immature granulocytes (Bld) [#/Vol] 10*3/uL Normal <0.10 [facility] Comment on above: Order Comment: Speci men Type: BLOOD SPECIMEN Ordering Facility: External Submitter Address: , , Performed By: #### 1 798-8, , 3 #### [facility] CLIA [id number] [address] [place] [address] [place] Immature granulocytes/100 WBC (Bld) 0.3 % Normal [facility] Comment on above: Order Comment: Speci men Type: BLOOD SPECIMEN Ordering Facility: External Submitter Address: , , Performed By: #### 1 798-8, 78038-5, 3 #### [facility] CLIA [id number] [address] [place] [address] [place] Lymphocytes (Bld) [#/Vol] 0.83 10*3/uL Low 1.00-4.00 [facility] Comment on above: Order Comment: Speci men Type: BLOOD SPECIMEN Ordering Facility: External Submitter Address: , , Performed By: #### 1 798-8, 46971-9, 3 #### [facility] CLIA [id number] [address] [place] [address] [facility] Lymphocytes/100 WBC (Bld) 10.8 % Normal [facility] Comment on above: Order Comment: Speci men Type: BLOOD SPECIMEN Ordering Facility: External Submitter Address: , , Performed By: #### 1 798-8, 77178-5, 3 #### [facility] CLIA [id number] [address] [place] [address] [place] MCH (RBC) [Entitic mass] 26.8 pg Normal 26.0-34.0 [facility] Comment on above: Order Comment: Speci men Type: BLOOD SPECIMEN Ordering Facility: External Submitter Address: , , Performed By: #### 1 798-8, , 3 #### [facility] CLIA [id number] [address] [place] [address] [place] MCHC (RBC) [Mass/Vol] 32.5 g/dL Normal 30.5-36.0 [facility] Comment on above: Order Comment: Speci men Type: BLOOD SPECIMEN Ordering Facility: External Submitter Address: , , Performed By: #### 1 798-8, , 3 #### [facility] CLIA [id number] [address] [place] [address] [place] MCV (RBC) [Entitic vol] 82.6 fL Normal 80.0-100.0 [facility] Comment on above: Order Comment: Speci men Type: BLOOD SPECIMEN Ordering Facility: External Submitter Address: , , Performed By: #### 1 798-8, 07767-9, 3 #### [facility] CLIA [id number] [address] [place] [address] Monocytes (Bld) [#/Vol] 0.68 10*3/uL Normal <0.87 [facility] Comment on above: Order Comment: Speci men Type: BLOOD SPECIMEN Ordering Facility: External Submitter Address: , , Performed By: #### 1 798-8, 35889-1, 3 #### [facility] CLIA [id number] [address] [place] [address] [place] Monocytes/100 WBC (Bld) 8.8 % Normal [facility] Comment on above: Order Comment: Speci men Type: BLOOD SPECIMEN Ordering Facility: External Submitter Address: , , Performed By: #### 1 798-8, 25120-1, 3 #### [facility] CLIA [id number] [address] [place] [address] [place] Neutrophils (Bld) [#/Vol] 6.07 10*3/uL Normal 1.45-7.50 [facility] Comment on above: Order Comment: Speci men Type: BLOOD SPECIMEN Ordering Facility: External Submitter Address: , , Performed By: #### 1 798-8, , 3 #### [facility] CLIA [id number] [address] [place] [address] [place] Neutrophils/100 WBC (Bld) 78.8 % Normal [facility] Comment on above: Order Comment: Speci men Type: BLOOD SPECIMEN Ordering Facility: External Submitter Address: , , Performed By: #### 1 798-8, , 3 #### [facility] CLIA [id number] [address] [place] [address] [place] Nucleated RBC (Bld) [#/Vol] 10*3/uL Normal <0.01 [facility] Comment on above: Order Comment: Speci men Type: BLOOD SPECIMEN Ordering Facility: External Submitter Address: , , Performed By: #### 1 798-8, 95870-0, 3 #### [facility] CLIA [id number] [address] [place] [address] [place] Nucleated RBC/100 WBC (Bld) [Ratio] 0.0 /100 WBC Normal [facility] Comment on above: Order Comment: Speci men Type: BLOOD SPECIMEN Ordering Facility: External Submitter Address: , , Performed By: #### 1 798-8, 89988-9, 3 #### [facility] CLIA [id number] [address] [place] [address] [place] Platelet mean volume (Bld) [Entitic vol] 11.0 fL Normal 9.0-12.7 [facility] Comment on above: Order Comment: Speci men Type: BLOOD SPECIMEN Ordering Facility: External Submitter Address: , , Performed By: #### 1 798-8, 75790-7, 3 #### [facility] CLIA [id number] [address] [place] [address] [place] Platelets (Bld) [#/Vol] 221 10*3/uL Normal 150-400 [facility] Comment on above: Order Comment: Speci men Type: BLOOD SPECIMEN Ordering Facility: External Submitter Address: , , Performed By: #### 1 798-8, 77769-3, 3 #### [facility] CLIA [id number] [address] [place] [address] [place] RBC (Bld) [#/Vol] 4.77 10*6/uL Normal 4.20-6.00 [facility] Comment on above: Order Comment: Speci men Type: BLOOD SPECIMEN Ordering Facility: External Submitter Address: , , Performed By: #### 1 798-8, 67719-5, 3 #### [facility] CLIA [id number] [address] [place] [address] [place] WBC (Bld) [#/Vol] 7.70 10*3/uL Normal 3.70-11.00 [facility] Comment on above: Order Comment: Speci men Type: BLOOD SPECIMEN Ordering Facility: External Submitter Address: , , Performed By: #### 1 798-8, 15500-8, 3039-3 #### [facility] CLIA [id number] [address] [place], [place] [address] [facility] [place] Comprehensive metabolic 2000 panelon 09-13-2024 Albumin [Mass/Vol] 4.4 g/dL Normal 3.9-4.9 [facility] Comment on above: Order Comment: Speci men Type: BLOOD SPECIMEN Ordering Facility: External Submitter Address: , , Performed By: #### 1 798-8, 80352-0, 3040-3 #### [facility] CLIA [id number] [address] [place] [address] [place] ALP [Catalytic activity/Vol] 56 U/L Normal 38-113 [facility] Comment on above: Order Comment: Speci men Type: BLOOD SPECIMEN Ordering Facility: External Submitter Address: , , Performed By: #### 1 798-8, 11215-0, 0-3 #### [facility] CLIA [id number] [address] [place] [address] [place] ALT [Catalytic activity/Vol] 35 U/L Normal 10-54 [facility] Comment on above: Order Comment: Speci men Type: BLOOD SPECIMEN Ordering Facility: External Submitter Address: , , Performed By: #### 1 798-8, 43376-5, 3040-3 #### [facility] CLIA [id number] [address] [place] [address] Anion gap [Moles/Vol] 12 mmol/L Normal 8-15 [facility] Comment on above: Order Comment: Speci men Type: BLOOD SPECIMEN Ordering Facility: External Submitter Address: , , Performed By: #### 1 798-8, 52636-5, 3040-3 #### [facility] CLIA [id number] [address] [place] [address] [place] AST [Catalytic activity/Vol] 28 U/L Normal 14-40 [facility] Comment on above: Order Comment: Speci men Type: BLOOD SPECIMEN Ordering Facility: External Submitter Address: , , Performed By: #### 1 798-8, 26749-1, 3040-3 #### [facility] CLIA [id number] [address] [place] [address] [place] Bilirubin [Mass/Vol] 1.2 mg/dL Normal 0.2-1.3 [facility] Comment on above: Order Comment: Speci men Type: BLOOD SPECIMEN Ordering Facility: External Submitter Address: , , Performed By: #### 1 798-8, 23252-5, 3039-3 #### [facility] CLIA [id number] [address] [place] [address] [place] Calcium [Mass/Vol] 10.0 mg/dL Normal 8.5-10.2 [facility] Comment on above: Order Comment: Speci men Type: BLOOD SPECIMEN Ordering Facility: External Submitter Address: , , Performed By: #### 1 798-8, 11943-8, 3 #### [facility] CLIA [id number] [address] [place] [address] [place] Chloride [Moles/Vol] 100 mmol/L Normal 98-107 [facility] Comment on above: Order Comment: Speci men Type: BLOOD SPECIMEN Ordering Facility: External Submitter Address: , , Performed By: #### 1 798-8, 63055-2, 3039-3 #### [facility] CLIA [id number] [address] [place] [address] [place] CO2 [Moles/Vol] 26 mmol/L Normal 22-30 [facility] Comment on above: Order Comment: Speci men Type: BLOOD SPECIMEN Ordering Facility: External Submitter Address: , , Performed By: #### 1 798-8, 92768-7, 3039-3 #### [facility] CLIA [id number] [address] [place] [address] [place] Creatinine [Mass/Vol] 0.95 mg/dL Normal 0.73-1.22 [facility] Comment on above: Order Comment: Speci men Type: BLOOD SPECIMEN Ordering Facility: External Submitter Address: , , Performed By: #### 1 798-8, 21468-4, 0-3 #### [facility] CLIA [id number] [address] [place] [address] [place] Creatinine and Glomerular filtration rate.predicted panel (S/P/Bld) 104 mL/min/1.73m??? Normal >=60 [facility] Comment on above: Order Comment: Klaus colindres Type: BLOOD SPECIMEN Ordering Facility: External Submitter Address: , , Result Comment: Codie mated Glomerular Filtration Rate (eGFR) is calculated using the 2020 CKD-EPI creatinine equation. This equation utilizes serum creatinine, sex, and age as parameters. The creatinine assay has traceable calibration to isotope dilution-mass spectrometry. Refer to KDIGO guidelines for clinical interpretation. In patients with unstable renal function, e.g. those with acute kidney injury, the eGFR may not accurately reflect actual GFR. Performed By: #### 1 798-8, 73557-6, 3040-3 #### [facility] CLIA [id number] [address] [place] [address] [place] Glucose [Mass/Vol] 103 mg/dL High 74-99 [facility] Comment on above: Order Comment: Klaus colindres Type: BLOOD SPECIMEN Ordering Facility: External Submitter Address: , , Result Comment: The [place] [employer] (ADA) provides guidance for cutoff values for fasting glucose and random glucose. The ADA defines fasting as no caloric intake for at least 8 hours. Fasting plasma glucose results between 100 to 125 mg/dL indicate increased risk for diabetes (prediabetes). Fasting plasma glucose results greater than or equal to 126 mg/dL meet the criteria for diagnosis of diabetes. In the absence of unequivocal hyperglycemia, results should be confirmed by repeat testing. In a patient with classic symptoms of hyperglycemia or hyperglycemic crisis, random plasma glucose results greater than or equal to 200 mg/dL meet the criteria for diagnosis of diabetes. Reference: Standards of Medical Care in Diabetes 2016, [place] [employer]. Diabetes Care. 2016.39(Suppl 1). Performed By: #### 1 798-8, 52374-1, 3040-3 #### [facility] CLIA [id number] [address] [place], [place] [address] [place] Potassium [Moles/Vol] 3.5 mmol/L Low 3.7-5.1 [facility] Comment on above: Order Comment: Klaus colindres Type: BLOOD SPECIMEN Ordering Facility: External Submitter Address: , , Performed By: #### 1 798-8, 82946-0, 0-3 #### [facility] CLIA [id number] [address] [place] [address] [place] Protein [Mass/Vol] 7.1 g/dL Normal 6.3-8.0 [facility] Comment on above: Order Comment: Speci men Type: BLOOD SPECIMEN Ordering Facility: External Submitter Address: , , Performed By: #### 1 798-8, 85514-3, 3039-3 #### [facility] CLIA [id number] [address] [place] [address] [place] Sodium [Moles/Vol] 138 mmol/L Normal 136-144 [facility] Comment on above: Order Comment: Speci men Type: BLOOD SPECIMEN Ordering Facility: External Submitter Address: , , Performed By: #### 1 798-8, 11741-8, 3 #### [facility] CLIA [id number] [address] [place] [address] [place] Urea nitrogen [Mass/Vol] 11 mg/dL Normal 9-24 [facility] Comment on above: Order Comment: Speci men Type: BLOOD SPECIMEN Ordering Facility: External Submitter Address: , , Performed By: #### 1 798-8, 41371-6, 3 #### [facility] CLIA [id number] [address] [place] [address] [place] Amylase SerPl-cCncon 025 Amylase [Catalytic activity/Vol] 61 U/L Normal 30-104 [facility] Comment on above: Order Comment: Speci men Type: BLOOD SPECIMEN Ordering Facility: External Submitter Address: , , Performed By: #### 1 798-8, 62060-6, 0-3 #### [facility] CLIA [id number] [address] [place] [address] [place] CBC W Auto Differential pane l (Bld)on 09-06-2024 Basophils (Bld) [#/Vol] 0.04 10*3/uL Normal <0.11 [facility] Comment on above: Order Comment: Speci men Type: BLOOD SPECIMEN Ordering Facility: External Submitter Address: , , Performed By: #### 5 7021-8 #### [facility] CLIA [id number] [address] [place] [address] [place] Basophils/100 WBC (Bld) 0.4 % Normal [facility] Comment on above: Order Comment: Speci men Type: BLOOD SPECIMEN Ordering Facility: External Submitter Address: , , Performed By: #### 5 7021-8 #### [facility] CLIA [id number] [address] [place] [address] [place] Differential cell count method Nom (Bld) Auto [facility] Comment on above: Order Comment: Speci men Type: BLOOD SPECIMEN Ordering Facility: External Submitter Address: , , Performed By: #### 5 7021-8 #### [facility] CLIA [id number] [address] [place] [address] [place] Eosinophils (Bld) [#/Vol] 0.04 10*3/uL Normal <0.46 [facility] Comment on above: Order Comment: Speci men Type: BLOOD SPECIMEN Ordering Facility: External Submitter Address: , , Performed By: #### 5 7021-8 #### [facility] CLIA [id number] [address] [place] [address] [place] Eosinophils/100 WBC (Bld) 0.4 % [facility] Comment on above: Order Comment: Speci men Type: BLOOD SPECIMEN Ordering Facility: External Submitter Address: , , Performed By: #### 5 7021-8 #### [facility] CLIA [id number] [address] [place] [address] [place] Erythrocyte distribution width (RBC) [Ratio] 16.7 % High 11.5-15.0 [facility] Comment on above: Order Comment: Speci men Type: BLOOD SPECIMEN Ordering Facility: External Submitter Address: , , Performed By: #### 5 7021-8 #### [facility] CLIA [id number] [address] [place] [address] [place] Hematocrit (Bld) [Volume fraction] 40.0 % Normal 39.0-51.0 [facility] Comment on above: Order Comment: Speci men Type: BLOOD SPECIMEN Ordering Facility: External Submitter Address: , , Performed By: #### 5 7021-8 #### [facility] CLIA [id number] [address] [place] [address] [place] Hemoglobin (Bld) [Mass/Vol] 12.8 g/dL Low 13.0-17.0 [facility] Comment on above: Order Comment: Speci men Type: BLOOD SPECIMEN Ordering Facility: External Submitter Address: , , Performed By: #### 5 7021-8 #### [facility] CLIA [id number] [address] [place] [address] [place] Immature granulocytes (Bld) [#/Vol] 0.05 10*3/uL Normal <0.10 [facility] Comment on above: Order Comment: Speci men Type: BLOOD SPECIMEN Ordering Facility: External Submitter Address: , , Performed By: #### 5 7021-8 #### [facility] CLIA [id number] [address] [place] [address] [place] Immature granulocytes/100 WBC (Bld) 0.5 % Normal [facility] Comment on above: Order Comment: Speci men Type: BLOOD SPECIMEN Ordering Facility: External Submitter Address: , , Performed By: #### 5 7021-8 #### [facility] CLIA [id number] [address] [place] [address] [place] Lymphocytes (Bld) [#/Vol] 0.68 10*3/uL Low 1.00-4.00 [facility] Comment on above: Order Comment: Speci men Type: BLOOD SPECIMEN Ordering Facility: External Submitter Address: , , Performed By: #### 5 7021-8 #### [facility] CLIA [id number] [address] [place] [address] [facility] [place] Lymphocytes/100 WBC (Bld) 6.8 % Normal [facility] Comment on above: Order Comment: Speci men Type: BLOOD SPECIMEN Ordering Facility: External Submitter Address: , , Performed By: #### 5 7021-8 #### [facility] CLIA [id number] [address] [place] [address] MCH (RBC) [Entitic mass] 26.6 pg Normal 26.0-34.0 [facility] Comment on above: Order Comment: Speci men Type: BLOOD SPECIMEN Ordering Facility: External Submitter Address: , , Performed By: #### 5 7021-8 #### [facility] IA [id number] [address] [place] [address] MCHC (RBC) [Mass/Vol] 32.0 g/dL Normal 30.5-36.0 [facility] Comment on above: Order Comment: Speci men Type: BLOOD SPECIMEN Ordering Facility: External Submitter Address: , , Performed By: #### 5 7021-8 #### [facility] IA [id number] [address] [place] [address] MCV (RBC) [Entitic vol] 83.2 fL Normal 80.0-100.0 [facility] Comment on above: Order Comment: Speci men Type: BLOOD SPECIMEN Ordering Facility: External Submitter Address: , , Performed By: #### 5 7021-8 #### [facility] IA [id number] [address] [place] [address] Monocytes (Bld) [#/Vol] 0.63 10*3/uL Normal <0.87 [facility] Comment on above: Order Comment: Speci men Type: BLOOD SPECIMEN Ordering Facility: External Submitter Address: , , Performed By: #### 5 7021-8 #### [facility] CLIA [id number] [address] [place] [address] Monocytes/100 WBC (Bld) 6.3 % Normal [facility] Comment on above: Order Comment: Speci men Type: BLOOD SPECIMEN Ordering Facility: External Submitter Address: , , Performed By: #### 5 7021-8 #### [facility] CLIA [id number] [address] [place] [address] [place] Neutrophils (Bld) [#/Vol] 8.53 10*3/uL High 1.45-7.50 [facility] Comment on above: Order Comment: Speci men Type: BLOOD SPECIMEN Ordering Facility: External Submitter Address: , , Performed By: #### 5 7021-8 #### [facility] CLIA [id number] [address] [place] [address] [place] Neutrophils/100 WBC (Bld) 85.6 % Normal [facility] Comment on above: Order Comment: Speci men Type: BLOOD SPECIMEN Ordering Facility: External Submitter Address: , , Performed By: #### 5 7021-8 #### [facility] CLIA [id number] [address] [place] [address] [place] Nucleated RBC (Bld) [#/Vol] 10*3/uL Normal <0.01 [facility] Comment on above: Order Comment: Speci men Type: BLOOD SPECIMEN Ordering Facility: External Submitter Address: , , Performed By: #### 5 7021-8 #### [facility] CLIA [id number] [address] [place] [address] [place] Nucleated RBC/100 WBC (Bld) [Ratio] 0.0 /100 WBC Normal [facility] Comment on above: Order Comment: Speci men Type: BLOOD SPECIMEN Ordering Facility: External Submitter Address: , , Performed By: #### 5 7021-8 #### [facility] CLIA [id number] [address] [place] [address] [place] Platelet mean volume (Bld) [Entitic vol] 10.9 fL Normal 9.0-12.7 [facility] Comment on above: Order Comment: Speci men Type: BLOOD SPECIMEN Ordering Facility: External Submitter Address: , , Performed By: #### 5 7021-8 #### [facility] CLIA [id number] [address] [place] [address] [place] Platelets (Bld) [#/Vol] 223 10*3/uL Normal 150-400 [facility] Comment on above: Order Comment: Speci men Type: BLOOD SPECIMEN Ordering Facility: External Submitter Address: , , Performed By: #### 5 7021-8 #### [facility] CLIA [id number] [address] [place] [address] [place] RBC (Bld) [#/Vol] 4.81 10*6/uL Normal 4.20-6.00 [facility] Comment on above: Order Comment: Speci men Type: BLOOD SPECIMEN Ordering Facility: External Submitter Address: , , Performed By: #### 5 7021-8 #### [facility] CLIA [id number] [address] [place] [address] [place] WBC (Bld) [#/Vol] 9.97 10*3/uL Normal 3.70-11.00 [facility] Comment on above: Order Comment: Speci men Type: BLOOD SPECIMEN Ordering Facility: External Submitter Address: , , Performed By: #### 5 7021-8 #### [facility] IA [id number] [address] [place] [address] [place] Comprehensive metabolic 2000 panelon 09-06-2024 Albumin [Mass/Vol] 4.4 g/dL Normal 3.9-4.9 [facility] Comment on above: Order Comment: Speci men Type: BLOOD SPECIMEN Ordering Facility: External Submitter Address: , , Performed By: #### 1 798-8, 79188-2, 0-3 #### [facility] CLIA [id number] [address] [place] [address] [place] ALP [Catalytic activity/Vol] 57 U/L Normal 38-113 [facility] Comment on above: Order Comment: Speci men Type: BLOOD SPECIMEN Ordering Facility: External Submitter Address: , , Performed By: #### 1 798-8, 75137-3, 3040-3 #### [facility] CLIA [id number] [address] [place] [address] [place] ALT [Catalytic activity/Vol] 32 U/L Normal 10-54 [facility] Comment on above: Order Comment: Speci men Type: BLOOD SPECIMEN Ordering Facility: External Submitter Address: , , Performed By: #### 1 798-8, 75214-8, 3039-3 #### [facility] CLIA [id number] [address] [place] [address] [place] Anion gap [Moles/Vol] 12 mmol/L Normal 8-15 [facility] Comment on above: Order Comment: Speci men Type: BLOOD SPECIMEN Ordering Facility: External Submitter Address: , , Performed By: #### 1 798-8, 57318-8, 3039-3 #### [facility] CLIA [id number] [address] [place] [address] [place] AST [Catalytic activity/Vol] 29 U/L Normal 14-40 [facility] Comment on above: Order Comment: Speci men Type: BLOOD SPECIMEN Ordering Facility: External Submitter Address: , , Performed By: #### 1 798-8, 32423-7, 3 #### [facility] CLIA [id number] [address] [place] [address] [place] Bilirubin [Mass/Vol] 1.6 mg/dL High 0.2-1.3 [facility] Comment on above: Order Comment: Speci men Type: BLOOD SPECIMEN Ordering Facility: External Submitter Address: , , Performed By: #### 1 798-8, 49137-7, 3 #### [facility] CLIA [id number] [address] [place] [address] [place] Calcium [Mass/Vol] 10.0 mg/dL Normal 8.5-10.2 [facility] Comment on above: Order Comment: Speci men Type: BLOOD SPECIMEN Ordering Facility: External Submitter Address: , , Performed By: #### 1 798-8, 71392-0, 3039-3 #### [facility] CLIA [id number] [address] [place] [address] [place] Chloride [Moles/Vol] 101 mmol/L Normal 98-107 [facility] Comment on above: Order Comment: Speci men Type: BLOOD SPECIMEN Ordering Facility: External Submitter Address: , , Performed By: #### 1 798-8, 73594-4, 0-3 #### [facility] CLIA [id number] [address] [place] [address] [place] CO2 [Moles/Vol] 25 mmol/L Normal 22-30 [facility] Comment on above: Order Comment: Speci jens Type: BLOOD SPECIMEN Ordering Facility: External Submitter Address: , , Performed By: #### 1 798-8, 89170-4, 3 #### [facility] CLIA [id number] [address] [place] [address] [place] Creatinine [Mass/Vol] 0.95 mg/dL Normal 0.73-1.22 [facility] Comment on above: Order Comment: Klaus colindres Type: BLOOD SPECIMEN Ordering Facility: External Submitter Address: , , Performed By: #### 1 798-8, 06537-7, 3 #### [facility] CLIA [id number] [address] [place] [address] [place] Creatinine and Glomerular filtration rate.predicted panel (S/P/Bld) 104 mL/min/1.73m??? Normal >=60 [facility] Comment on above: Order Comment: Klaus colindres Type: BLOOD SPECIMEN Ordering Facility: External Submitter Address: , , Result Comment: Codie mated Glomerular Filtration Rate (eGFR) is calculated using the 2020 CKD-EPI creatinine equation. This equation utilizes serum creatinine, sex, and age as parameters. The creatinine assay has traceable calibration to isotope dilution-mass spectrometry. Refer to KDIGO guidelines for clinical interpretation. In patients with unstable renal function, e.g. those with acute kidney injury, the eGFR may not accurately reflect actual GFR. Performed By: #### 1 798-8, 10080-7, 3039-3 #### [facility] CLIA [id number] [address] [place] [address] [place] Glucose [Mass/Vol] 87 mg/dL Normal 74-99 [facility] Comment on above: Order Comment: Klaus colindres Type: BLOOD SPECIMEN Ordering Facility: External Submitter Address: , , Result Comment: The [place] [employer] (ADA) provides guidance for cutoff values for fasting glucose and random glucose. The ADA defines fasting as no caloric intake for at least 8 hours. Fasting plasma glucose results between 100 to 125 mg/dL indicate increased risk for diabetes (prediabetes). Fasting plasma glucose results greater than or equal to 126 mg/dL meet the criteria for diagnosis of diabetes. In the absence of unequivocal hyperglycemia, results should be confirmed by repeat testing. In a patient with classic symptoms of hyperglycemia or hyperglycemic crisis, random plasma glucose results greater than or equal to 200 mg/dL meet the criteria for diagnosis of diabetes. Reference: Standards of Medical Care in Diabetes 2016, [place] [employer]. Diabetes Care. 2016.39(Suppl 1). Performed By: #### 1 798-8, 97727-5, 0-3 #### [facility] CLIA [id number] [address] [place] [address] [place] Potassium [Moles/Vol] 3.7 mmol/L Normal 3.7-5.1 [facility] Comment on above: Order Comment: Klaus colindres Type: BLOOD SPECIMEN Ordering Facility: External Submitter Address: , , Performed By: #### 1 798-8, 89208-9, 0-3 #### [facility] CLIA [id number] [address] [place] [address] [place] Protein [Mass/Vol] 7.2 g/dL Normal 6.3-8.0 [facility] Comment on above: Order Comment: Klaus colindres Type: BLOOD SPECIMEN Ordering Facility: External Submitter Address: , , Performed By: #### 1 798-8, 10959-6, 0-3 #### [facility] CLIA [id number] [address] [place] [address] [place] Sodium [Moles/Vol] 138 mmol/L Normal 136-144 [facility] Comment on above: Order Comment: Klaus colindres Type: BLOOD SPECIMEN Ordering Facility: External Submitter Address: , , Performed By: #### 1 798-8, 33117-1, 0-3 #### [facility] CLIA [id number] [address] [place] [address] [place] Urea nitrogen [Mass/Vol] 14 mg/dL Normal 9-24 [facility] Comment on above: Order Comment: Speci men Type: BLOOD SPECIMEN Ordering Facility: External Submitter Address: , , Performed By: #### 1 798-8, 01404-7, 3039-3 #### [facility] CLIA [id number] [address] [place] [address] [place] Lipase SerPl-cCncon 09-07-19 25 Lipase [Catalytic activity/Vol] 85 U/L High 16-61 [facility] Comment on above: Order Comment: Speci men Type: BLOOD SPECIMEN Ordering Facility: External Submitter Address: , , Performed By: #### 1 798-8, 63738-4, 3 #### [facility] CLIA [id number] [address] [place] [address] [place] Amylase SerPl-cCncon 025 Amylase [Catalytic activity/Vol] 60 U/L Normal 30-104 [facility] Comment on above: Order Comment: Speci men Type: BLOOD SPECIMEN Ordering Facility: External Submitter Address: , , Performed By: #### 1 798-8, 85496-0, 3 #### [facility] CLIA [id number] [address] [place] [address] CBC W Auto Differential pane l (Bld)on 08-30-2024 Basophils (Bld) [#/Vol] 10*3/uL Normal <0.11 [facility] Comment on above: Order Comment: Speci men Type: BLOOD SPECIMEN Ordering Facility: External Submitter Address: , , Performed By: #### 5 7021-8 #### [facility] CLIA [id number] [address] [place] [address] Basophils/100 WBC (Bld) 0.2 % Normal [facility] Comment on above: Order Comment: Speci men Type: BLOOD SPECIMEN Ordering Facility: External Submitter Address: , , Performed By: #### 5 7021-8 #### [facility] CLIA [id number] [address] [place] [address] [place] Differential cell count method Nom (Bld) Auto Normal [facility] Comment on above: Order Comment: Speci men Type: BLOOD SPECIMEN Ordering Facility: External Submitter Address: , , Performed By: #### 5 7021-8 #### [facility] CLIA [id number] [address] [place] [address] [place] Eosinophils (Bld) [#/Vol] 10*3/uL Normal <0.46 [facility] Comment on above: Order Comment: Speci men Type: BLOOD SPECIMEN Ordering Facility: External Submitter Address: , , Performed By: #### 5 7021-8 #### [facility] CLIA [id number] [address] [place] [address] [place] Eosinophils/100 WBC (Bld) 0.2 % Normal [facility] Comment on above: Order Comment: Speci men Type: BLOOD SPECIMEN Ordering Facility: External Submitter Address: , , Performed By: #### 5 7021-8 #### [facility] CLIA [id number] [address] [place] [address] [place] Erythrocyte distribution width (RBC) [Ratio] 17.2 % High 11.5-15.0 [facility] Comment on above: Order Comment: Speci men Type: BLOOD SPECIMEN Ordering Facility: External Submitter Address: , , Performed By: #### 5 7021-8 #### [facility] CLIA [id number] [address] [place] [address] [place] Hematocrit (Bld) [Volume fraction] 40.4 % Normal 39.0-51.0 [facility] Comment on above: Order Comment: Speci men Type: BLOOD SPECIMEN Ordering Facility: External Submitter Address: , , Performed By: #### 5 7021-8 #### [facility] CLIA [id number] [address] [place] [address] [place] Hemoglobin (Bld) [Mass/Vol] 12.9 g/dL Low 13.0-17.0 [facility] Comment on above: Order Comment: Speci men Type: BLOOD SPECIMEN Ordering Facility: External Submitter Address: , , Performed By: #### 5 7021-8 #### [facility] CLIA [id number] [address] [place] [address] [place] Immature granulocytes (Bld) [#/Vol] 0.03 10*3/uL Normal <0.10 [facility] Comment on above: Order Comment: Speci men Type: BLOOD SPECIMEN Ordering Facility: External Submitter Address: , , Performed By: #### 5 7021-8 #### [facility] CLIA [id number] [address] [place] [address] [place] Immature granulocytes/100 WBC (Bld) 0.3 % Normal [facility] Comment on above: Order Comment: Speci men Type: BLOOD SPECIMEN Ordering Facility: External Submitter Address: , , Performed By: #### 5 7021-8 #### [facility] CLIA [id number] [address] [place] [address] [place] Lymphocytes (Bld) [#/Vol] 0.46 10*3/uL Low 1.00-4.00 [facility] Comment on above: Order Comment: Speci men Type: BLOOD SPECIMEN Ordering Facility: External Submitter Address: , , Performed By: #### 5 7021-8 #### [facility] CLIA [id number] [address] [place] [address] [place] Lymphocytes/100 WBC (Bld) 4.6 % Normal [facility] Comment on above: Order Comment: Speci men Type: BLOOD SPECIMEN Ordering Facility: External Submitter Address: , , Performed By: #### 5 7021-8 #### [facility] CLIA [id number] [address] [place] [address] [place] MCH (RBC) [Entitic mass] 26.8 pg Normal 26.0-34.0 [facility] Comment on above: Order Comment: Speci men Type: BLOOD SPECIMEN Ordering Facility: External Submitter Address: , , Performed By: #### 5 7021-8 #### [facility] CLIA [id number] [address] [place] [address] [place] MCHC (RBC) [Mass/Vol] 31.9 g/dL Normal 30.5-36.0 [facility] Comment on above: Order Comment: Speci men Type: BLOOD SPECIMEN Ordering Facility: External Submitter Address: , , Performed By: #### 5 7021-8 #### [facility] CLIA [id number] [address] [place] [address] [place] MCV (RBC) [Entitic vol] 83.8 fL Normal 80.0-100.0 [facility] Comment on above: Order Comment: Speci men Type: BLOOD SPECIMEN Ordering Facility: External Submitter Address: , , Performed By: #### 5 7021-8 #### [facility] CLIA [id number] [address] [place] [address] [place] Monocytes (Bld) [#/Vol] 0.35 10*3/uL Normal <0.87 [facility] Comment on above: Order Comment: Speci men Type: BLOOD SPECIMEN Ordering Facility: External Submitter Address: , , Performed By: #### 5 7021-8 #### [facility] CLIA [id number] [address] [place] [address] [place] Monocytes/100 WBC (Bld) 3.5 % Normal [facility] Comment on above: Order Comment: Speci men Type: BLOOD SPECIMEN Ordering Facility: External Submitter Address: , , Performed By: #### 5 7021-8 #### [facility] CLIA [id number] [address] [place] [address] [place] Neutrophils (Bld) [#/Vol] 9.11 10*3/uL High 1.45-7.50 [facility] Comment on above: Order Comment: Speci men Type: BLOOD SPECIMEN Ordering Facility: External Submitter Address: , , Performed By: #### 5 7021-8 #### [facility] CLIA [id number] [address] [place] [address] [place] Neutrophils/100 WBC (Bld) 91.2 % Normal [facility] Comment on above: Order Comment: Speci men Type: BLOOD SPECIMEN Ordering Facility: External Submitter Address: , , Performed By: #### 5 7021-8 #### [facility] CLIA [id number] [address] [place] [address] [place] Nucleated RBC (Bld) [#/Vol] 10*3/uL Normal <0.01 [facility] Comment on above: Order Comment: Speci men Type: BLOOD SPECIMEN Ordering Facility: External Submitter Address: , , Performed By: #### 5 7021-8 #### [facility] CLIA [id number] [address] [place] [address] [place] Nucleated RBC/100 WBC (Bld) [Ratio] 0.0 /100 WBC Normal [facility] Comment on above: Order Comment: Speci men Type: BLOOD SPECIMEN Ordering Facility: External Submitter Address: , , Performed By: #### 5 7021-8 #### [facility] CLIA [id number] [address] [place] [address] [place] Platelet mean volume (Bld) [Entitic vol] 11.4 fL Normal 9.0-12.7 [facility] Comment on above: Order Comment: Speci men Type: BLOOD SPECIMEN Ordering Facility: External Submitter Address: , , Performed By: #### 5 7021-8 #### [facility] CLIA [id number] [address] [place] [address] [place] Platelets (Bld) [#/Vol] 216 10*3/uL Normal 150-400 [facility] Comment on above: Order Comment: Speci men Type: BLOOD SPECIMEN Ordering Facility: External Submitter Address: , , Performed By: #### 5 7021-8 #### [facility] CLIA [id number] [address] [place] [address] [place] RBC (Bld) [#/Vol] 4.82 10*6/uL Normal 4.20-6.00 [facility] Comment on above: Order Comment: Speci men Type: BLOOD SPECIMEN Ordering Facility: External Submitter Address: , , Performed By: #### 5 7021-8 #### [facility] CLIA [id number] [address] [place] [address] [place] WBC (Bld) [#/Vol] 9.99 10*3/uL Normal 3.70-11.00 [facility] Comment on above: Order Comment: Speci men Type: BLOOD SPECIMEN Ordering Facility: External Submitter Address: , , Performed By: #### 5 7021-8 #### [facility] CLIA [id number] [address] [place] [address] [place] Comprehensive metabolic 2000 panelon 08-30-2024 Albumin [Mass/Vol] 4.4 g/dL Normal 3.9-4.9 [facility] Comment on above: Order Comment: Speci men Type: BLOOD SPECIMEN Ordering Facility: External Submitter Address: , , Performed By: #### 1 798-8, 47915-1, 0-3 #### [facility] CLIA [id number] [address] [place] [address] [place] ALP [Catalytic activity/Vol] 65 U/L Normal 38-113 [facility] Comment on above: Order Comment: Speci men Type: BLOOD SPECIMEN Ordering Facility: External Submitter Address: , , Performed By: #### 1 798-8, 27436-7, 3040-3 #### [facility] CLIA [id number] [address] [place] [address] [place] [facility] ALT [Catalytic activity/Vol] 27 U/L Normal 10-54 [facility] Comment on above: Order Comment: Speci men Type: BLOOD SPECIMEN Ordering Facility: External Submitter Address: , , Performed By: #### 1 798-8, 09984-4, 3040-3 #### [facility] CLIA [id number] [address] [place] [address] [place] Anion gap [Moles/Vol] 10 mmol/L Normal 8-15 [facility] Comment on above: Order Comment: Speci men Type: BLOOD SPECIMEN Ordering Facility: External Submitter Address: , , Performed By: #### 1 798-8, 01331-7, 3040-3 #### [facility] CLIA [id number] [address] [place] [address] [place] AST [Catalytic activity/Vol] 23 U/L Normal 14-40 [facility] Comment on above: Order Comment: Speci men Type: BLOOD SPECIMEN Ordering Facility: External Submitter Address: , , Performed By: #### 1 798-8, 93104-0, 3039-3 #### [facility] CLIA [id number] [address] [place] [address] [place] Bilirubin [Mass/Vol] 0.7 mg/dL Normal 0.2-1.3 [facility] Comment on above: Order Comment: Speci men Type: BLOOD SPECIMEN Ordering Facility: External Submitter Address: , , Performed By: #### 1 798-8, 31299-8, 3 #### [facility] CLIA [id number] [address] [place] [address] [place] Calcium [Mass/Vol] 9.5 mg/dL Normal 8.5-10.2 [facility] Comment on above: Order Comment: Speci men Type: BLOOD SPECIMEN Ordering Facility: External Submitter Address: , , Performed By: #### 1 798-8, 64896-6, 3 #### [facility] CLIA [id number] [address] [place] [address] [place] Chloride [Moles/Vol] 102 mmol/L Normal 98-107 [facility] Comment on above: Order Comment: Speci men Type: BLOOD SPECIMEN Ordering Facility: External Submitter Address: , , Performed By: #### 1 798-8, 04296-3, 3 #### [facility] CLIA [id number] [address] [place] [address] [place] CO2 [Moles/Vol] 27 mmol/L Normal 22-30 [facility] Comment on above: Order Comment: Speci men Type: BLOOD SPECIMEN Ordering Facility: External Submitter Address: , , Performed By: #### 1 798-8, 95839-0, 0-3 #### [facility] CLIA [id number] [address] [place] [address] [place] Creatinine [Mass/Vol] 0.88 mg/dL Normal 0.73-1.22 [facility] Comment on above: Order Comment: Klaus colindres Type: BLOOD SPECIMEN Ordering Facility: External Submitter Address: , , Performed By: #### 1 798-8, 17016-3, 3040-3 #### [facility] CLIA [id number] [address] [place] [address] [place] Creatinine and Glomerular filtration rate.predicted panel (S/P/Bld) 112 mL/min/1.73m??? Normal >=60 [facility] Comment on above: Order Comment: Klaus colindres Type: BLOOD SPECIMEN Ordering Facility: External Submitter Address: , , Result Comment: Codie mated Glomerular Filtration Rate (eGFR) is calculated using the 2020 CKD-EPI creatinine equation. This equation utilizes serum creatinine, sex, and age as parameters. The creatinine assay has traceable calibration to isotope dilution-mass spectrometry. Refer to KDIGO guidelines for clinical interpretation. In patients with unstable renal function, e.g. those with acute kidney injury, the eGFR may not accurately reflect actual GFR. Performed By: #### 1 798-8, 51059-6, 0-3 #### [facility] CLIA [id number] [address] [place] [address] [place] Glucose [Mass/Vol] 115 mg/dL High 74-99 [facility] Comment on above: Order Comment: Klaus colindres Type: BLOOD SPECIMEN Ordering Facility: External Submitter Address: , , Result Comment: The [place] [employer] (ADA) provides guidance for cutoff values for fasting glucose and random glucose. The ADA defines fasting as no caloric intake for at least 8 hours. Fasting plasma glucose results between 100 to 125 mg/dL indicate increased risk for diabetes (prediabetes). Fasting plasma glucose results greater than or equal to 126 mg/dL meet the criteria for diagnosis of diabetes. In the absence of unequivocal hyperglycemia, results should be confirmed by repeat testing. In a patient with classic symptoms of hyperglycemia or hyperglycemic crisis, random plasma glucose results greater than or equal to 200 mg/dL meet the criteria for diagnosis of diabetes. Reference: Standards of Medical Care in Diabetes 2016, [place] [employer]. Diabetes Care. 2016.39(Suppl 1). Performed By: #### 1 798-8, 45963-6, 0-3 #### [facility] CLIA [id number] [address] [place] [address] [place] Potassium [Moles/Vol] 3.5 mmol/L Low 3.7-5.1 [facility] Comment on above: Order Comment: Speci men Type: BLOOD SPECIMEN Ordering Facility: External Submitter Address: , , Performed By: #### 1 798-8, 27525-2, 3039-3 #### [facility] CLIA [id number] [address] [place] [address] [place] Protein [Mass/Vol] 7.2 g/dL Normal 6.3-8.0 [facility] Comment on above: Order Comment: Speci men Type: BLOOD SPECIMEN Ordering Facility: External Submitter Address: , , Performed By: #### 1 798-8, 47801-9, 3 #### [facility] CLIA [id number] [address] [place] [address] [place] Sodium [Moles/Vol] 139 mmol/L Normal 136-144 [facility] Comment on above: Order Comment: Speci men Type: BLOOD SPECIMEN Ordering Facility: External Submitter Address: , , Performed By: #### 1 798-8, 51552-4, 3 #### [facility] CLIA [id number] [address] [place] [address] [place] Urea nitrogen [Mass/Vol] 14 mg/dL Normal 9-24 [facility] Comment on above: Order Comment: Speci men Type: BLOOD SPECIMEN Ordering Facility: External Submitter Address: , , Performed By: #### 1 798-8, 65541-0, 0-3 #### [facility] CLIA [id number] [address] [place] [address] [place] Lipase SerPl-cCncon 08-31-19 25 Lipase [Catalytic activity/Vol] 117 U/L High 16-61 [facility] Comment on above: Order Comment: Speci men Type: BLOOD SPECIMEN Ordering Facility: External Submitter Address: , , Performed By: #### 1 798-8, 12493-2, 3040-3 #### [facility] CLIA [id number] [address] [place], [place] [address] [place] Gastroenterology Visit Repor ton 08-17-2024 Gastroenterology Visit Report [facility] [address] [place] [address] OFFICE VISIT Date of Service: 08/17/24 MR#: [id number] Acct: [id number] Name: JAIR WARREN Rep #: [id number] : 1985 Provider: RENETTA ocampo Age/Sex: 39/M Location: [facility] Status: Signed Intake Vital Signs 07/14/24 06:12 08/17/24 10:49 Height 6 ft 1 in Weight: 203 lb 8 oz BP 137/91 H Blood Pressure Location Lt brachial Position Sitting Respiration 17 Pulse 79 Pulse Source Monitor Pulse Oximetry (%) 98 Oxygen Delivery Method room air Intake Visit Reasons: FU Chief Complaint: F/U Allergies lactose (lactose intolerant) Allergy (Severe, Verified 08/17/24 10:42) OTHER Medications ???Medication ???Instructions ???Recorded ???Confirmed ???Type budesonide 3 mg 9 mg PO QAM Crohn's 07/08/2408/17 History capsule,delayed,extended release multivitamin (Daily Multi-Vitamin 1 tab PO DAILY 07/08/24 08/17/24 History tablet) amlodipine 5 mg tablet 5 mg PO BID 07/14/24 08/17/24 Hist ory losartan 50 mg-hydrochlorothiazide 2 tab PO DAILY 07/14/24 08/17/24 History 12.5 mg tablet (Hyzaar) Bacillus coagulans 250 million 1 tab PO DAILY 08/17/24 08/17/24 H istory cell chewable tablet (Digestive Advantage Probiotic Gummy) omeprazole 40 mg capsule,delayed 40 mg PO QDAY #90 caps 08/17/24 Rx release azathioprine 50 mg tablet (Imuran) 150 mg (3 x 50 mg) PO QDAY 08/1808/18/24 Rx fistulizing crohns 90 days #270 tabs Nurse's Note: Pt states he is fine since being here the last visit. States he has had a little bit of diarrhea but no abdominal pain or nausea/vomitting. [facility] Medical History Wears contact lenses Alcohol use Prostate disease Dietary restriction History of diverticulitis History of Crohn's disease Non-smoker Hypertension Recurrent right inguinal hernia Surgical History History of bowel resection History of appendectomy History of vasectomy ( 03/2018) Hernia Family History Father Arthritis Social History Smoking Status: Never smoker alcohol intake: current alcohol intake frequency: a few times a month HPI HPI Chief Complaint: F/U Details: JAIR WARREN, is a 39 M who presents to the office today for - seen in office today with his INITIAL DIAGNOSIS: March 2024 CBC: 05/03/2024 unremarkable CMP: 05/03/2024 K+ 3.2, T. Bili 1.5 CRP: 06/20/2024 (H) 4.6 VITAMIN B12: 06/20/2024 low normal 358 VITAMIN WNL ZINC: Celiac Serologies: 05/03/2024 negative QUANTIFERON: 05/03/2024 negative HBVsAb: 05/03/2024 reactive HBV Core Total Ab: 05/03/2024 negative Fecal Calprotectin: 05/03/2024 71 SB imaging: MRE 06/13/2024 There is a short segment of mild apparent wall thickening along the neoterminal ileum, without convincing evidence of associated active inflammation. This could be related to underdistention, or perhaps fibrosis related to previous inflammation. This would be optimally ended evaluated endoscopically. No bowel dilatation to confirm that this reflects a stricture. No other abnormal areas of abnormal bowel are confidently identified, allowing for limitations. No definite evidence of penetrating disease such as fistulization or abscess. COLON: 07/14/2024 Mild active chronic ileocolitis, negative for dysplasia MEDS: Metronidazole 250mg BID BIOLOGICS: - Remicade co-pay assistance was just approved - Discussed starting Remicade and Imuran in detail today STEROIDS: Budesonide 9mg daily VACCINES COVID: Varicella Vaccine: Shingles Vaccine: Hepatitis B Vaccine: Pneumonia Vaccine: Influenza Vaccine: IBD SYMPTOMS: Bowel movements are: 3x a day since he has been watching diet Blood noted in stools: denies Bowel movement urgency present: usually in the morning Stool incontinence: denies Nocturnal BM's: denies Abdominal pain: mild Rectal pain: denies QOL: fatigue, going to work daily - c/o HB - denies any N/V - denies any dysphagia ROS: Fatigue: yes Fever: denies Night Sweats: denies Visual changes: denies Mouth sores: denies Joint pain: denies Skin rashes/Lesions: never seen dermatology Weight changes: denies Smoking status: denies NSAID use: denies Discussed importance of influenza vaccine yearly Discussed risk of basal cell cancers developing in patients on TNF therapy. I have recommended routine dermatology screenings, at least yearly. RECALL COLONOSCOPY 6 months after initiating therapy with Imuran and Remicade ROS Const Constitutional: Pos (more content not included)... Normal [facility] Colonoscopy Reporton 025 Colonoscopy Report [facility] Medical Records Department [address] [place] [address] Colonoscopy Report MR#: [id number] Acct: [id number] Name: JAIR WARREN Rep #: [id number] : 1985 39 From: Price Villanueva DO PCP: Dr. Aman Diop MD Status:[facility] Patient Name: Jair Warren Procedure Date: 07/14/2024 7:17 AM Date of : 1985 Age: 39 Procedure: Colonoscopy Indications: Crohn's disease of the small bowel and colon Providers: Price Villanueva DO Referring MD: Aman Diop Md Medicines: Monitored Anesthesia Care Patient Profile: This is a 39 year old male. Refer to note in patient chart for documentation of history and physical. Patient has symptoms of chronic global abdominal pain and chronic nausea. Last Colonoscopy: more than 3 years ago. Complications: No immediate complications. Procedure: Pre-Anesthesia Assessment: - Prior to the procedure, a History and Physical was performed, and patient medications and allergies were reviewed. The patient is competent. The risks and benefits of the procedure and the sedation options and risks were discussed with the patient. All questions were answered and informed consent was obtained. Patient identification and proposed procedure were verified by the physician in the pre-procedure area. Mental Status Examination: alert and oriented. Airway Examination: normal oropharyngeal airway and neck mobility. Respiratory Examination: clear to auscultation. CV Examination: normal. Prophylactic Antibiotics: The patient does not require prophylactic antibiotics. Prior Anticoagulants: The patient has taken no anticoagulant or antiplatelet agents except for NSAID medication. ASA Grade Assessment: II - A patient with mild systemic disease. After reviewing the risks and benefits, the patient was deemed in satisfactory condition to undergo the procedure. The anesthesia plan was to use monitored anesthesia care (MAC). Immediately prior to administration of medications, the patient was re-assessed for adequacy to receive sedatives. The heart rate, respiratory rate, oxygen saturations, blood pressure, adequacy of pulmonary ventilation, and response to care were monitored throughout the procedure. The physical status of the patient was re-assessed after the procedure. After I obtained informed consent, the scope was passed under direct vision. Throughout the procedure, the patient's blood pressure, pulse, and oxygen saturations were monitored continuously. The colonoscope was introduced through the anus and advanced to the terminal ileum. The colonoscopy was performed without difficulty. The patient tolerated the procedure well. The quality of the bowel preparation was unsatisfactory. The terminal ileum was photographed. Scope In: 7:18:38 AM Scope Withdrawal Time 0 hours 3 minutes 35 seconds Scope Out: 7:27:30 AM Total Procedure Duration Time 0 hours 8 minutes 52 seconds Findings: The perianal and digital rectal examinations were normal. There was evidence of a prior end-to-side ileo-colonic anastomosis in the ascending colon. This was patent and was characterized by erythema, inflammation and ulceration. The anastomosis was traversed. Biopsies were taken with a cold forceps for histology. Verification of patient identification for the specimen was done. Estimated blood loss was minimal. The Simple Endoscopic Score for Crohn's Disease was determined based on the endoscopic appearance of the mucosa in the following segments: - Ileum: Findings include ulcers greater than 2 cm in size, 10-30% ulcerated surfaces, 50-75% of surfaces affected and multiple narrowings that can be passed. Segment score: 9. - Right Colon: Findings include aphthous ulcers less than 0.5 cm in size, no ulcerated surfaces, no affected surfaces and no narrowings. Segment score: 1. - Transverse Colon: Findings include no ulcers present, no ulcerated surfaces, no affected surfaces, no narrowings and no ulcers present, no ulcerated surfaces, no affected surfaces and no narrowings. Segment score: 0. - Left Colon: Findings include large ulcers 0.5-2 cm in size, less than 10% ulcerated surfaces, less than 50% of surfaces affected, a single narrowing that can be passed and no ulcers present, no ulcerated surfaces, no affected surfaces and no narrowings. Segment score: 5. - Rectum: Findings include no ulcers present, no ulcerated surfaces, no affected surfaces, no narrowings and no ulcers present, no ulcerated surfaces, no affected surfaces and no narrowings. Segment score: 0. - Total SES-CD aggregate score: 15. Biopsies were taken with a cold forceps for histology. Verification of patient identification for the specimen was done. Estimated blood loss was minimal. Stool was found in the entire colon. Impression: - Preparation of the colon was uns (more content not included)... Normal [facility] EGD Reporton 07-14-2024 EGD Report [facility] Medical Records Department [address] [place] [address] EGD Report MR#: [id number] Acct: [id number] Name: JAIR WARREN Rep #: [id number] : 1985 39 From: Price Villanueva DO PCP: Dr. Aman Diop MD Status:[facility] Patient Name: Jair Warren Procedure Date: 07/14/2024 6:22 AM Date of : 1985 Age: 39 Procedure: Upper GI endoscopy Indications: Epigastric abdominal pain Providers: Price Villanueva DO Referring MD: Aman Diop Md Medicines: Monitored Anesthesia Care Patient Profile: This is a 39 year old male. Refer to note in patient chart for documentation of history and physical. Patient has symptoms of chronic global abdominal pain and chronic nausea. Complications: No immediate complications. Procedure: Pre-Anesthesia Assessment: - Prior to the procedure, a History and Physical was performed, and patient medications and allergies were reviewed. The patient is competent. The risks and benefits of the procedure and the sedation options and risks were discussed with the patient. All questions were answered and informed consent was obtained. Patient identification and proposed procedure were verified by the physician in the pre-procedure area. Mental Status Examination: alert and oriented. Airway Examination: normal oropharyngeal airway and neck mobility. Respiratory Examination: clear to auscultation. CV Examination: normal. Prophylactic Antibiotics: The patient does not require prophylactic antibiotics. Prior Anticoagulants: The patient has taken no anticoagulant or antiplatelet agents except for NSAID medication. ASA Grade Assessment: II - A patient with mild systemic disease. After reviewing the risks and benefits, the patient was deemed in satisfactory condition to undergo the procedure. The anesthesia plan was to use monitored anesthesia care (MAC). Immediately prior to administration of medications, the patient was re-assessed for adequacy to receive sedatives. The heart rate, respiratory rate, oxygen saturations, blood pressure, adequacy of pulmonary ventilation, and response to care were monitored throughout the procedure. The physical status of the patient was re-assessed after the procedure. After obtaining informed consent, the endoscope was passed under direct vision. Throughout the procedure, the patient's blood pressure, pulse, and oxygen saturations were monitored continuously. The colonoscope was introduced through the mouth, and advanced to the fourth part of the duodenum. Small bowel enteroscopy was deemed necessary. The upper GI endoscopy was accomplished without difficulty. The patient tolerated the procedure well. Scope In: 7:15:00 AM Scope Out: 7:16:46 AM Total Procedure Duration Time 0 hours 1 minute 46 seconds Findings: LA Grade B (one or more mucosal breaks greater than 5 mm, not extending between the tops of two mucosal folds) esophagitis with no bleeding was found 38 to 40 cm from the incisors. Biopsies were taken with a cold forceps for histology. Verification of patient identification for the specimen was done. Estimated blood loss was minimal. Suspect gastroparesis due to absence of peristalsis, patient symptoms and retained gastric contents. Diffuse mildly erythematous mucosa without active bleeding and with no stigmata of bleeding was found in the entire duodenum. Impression: - LA Grade B reflux esophagitis with no bleeding. Biopsied. - Gastroparesis. - Erythematous duodenopathy. Recommendation: - Discharge patient to home. - Resume previous diet. - Continue present medications. - Await pathology results. - Repeat upper endoscopy. Procedure Code(s): --- Professional --- 82610, Small intestinal endoscopy, enteroscopy beyond second portion of duodenum, not including ileum; with biopsy, single or multiple CPT copyright 2021 [place] [employer]. All rights reserved. The codes documented in this report are preliminary and upon medical insurance coder review may be revised to meet current compliance requirements. Price Villanueva DO 07/14/2024 7:30:55 AM This report has been signed electronically. Number of Addenda: 0 Note Initiated On: 07/14/2024 6:22 AM 07/14/24730 Date Price Villanueva DO Cosigner Signature: Date (if indicated) CC: Dr. Aman Diop MD; Price Villanueva DO Date Dictated: 07/14/24621 Date Transcribed: [employer] Consultant: BOBBY Signed [facility] MR/POSTOP.[facility] 07-14-2024 MR/POSTOP.[facility] Medical Records Department [address] [place] [address] Anesthesia Postop Eval I 07/14/2436 MR#: [id number] Acct: [id number] Name: JAIR WARREN Rep #: [id number] : 1985 39 From: Herbert White PCP: Dr. Aman Diop MD Status:REG SD Y Race: C Location: [place] [address] Anesthesia: Postop Eval I Current Vital Signs Temperature: 97.3 F Pulse Rate: 86 Blood Pressure: 114/80 Respiratory Rate: 18 Pulse Ox: 96 Oxygen Delivery Method: Room Air Assessment Airway patent: Yes Spontaneous unlabored respirations: Yes Mental status: Asleep nausea: No Vomiting: No Anesthesia Complication: No Fluid Hydration Crystalloid volume administer (ml): 60 Total IV fluid infused: 60 Progress Note Anesthesia document: Postop Eval 1 completed: Yes 07/14/24736 Date Herbert Diaz Signature: Date CC: Signed Normal [facility] MR/[id number] 07-14-2024 MR/POSTOPAN2 [facility] Medical Records Department [address] [place] [address] Anesthesia Postop Eval II 07/14/24900 MR#: [id number] Acct: [id number] Name: JAIR WARREN Rep #: [id number] : 1985 39 From: Mk Lomeli MD PCP: Dr. Aman Diop MD Status:[facility] Y Race: C Location: EN Anesthesia Postop Eval I Sum Postop Eval Completion status Anesthesia document: Postop Eval 1 completed: Yes Anesthesia Postop Eval I Summary Anesthesia Postop Eval I Summary: Anesthesia Postop Eval I: Assessment Summary Airway patent Yes 07/14/24 07:37 [email or web address] Spontaneous unlabored Yes 07/14/24 07:37 [email or web address] respirations Mental status Asleep 07/14/24 07:37 [email or web address] nausea No 07/14/24 07:37 [email or web address] Vomiting No 07/14/24 07:37 [email or web address] Anesthesia Postop Eval I: Fluid Summary Crystalloid volume administer 60 07/14/24 07:37 [email or web address] (ml) Colloids volume administered ( ml) Blood Product volume administered (ml) Total IV fluid infused 60 07/14/24 07:37 [email or web address] Anesthesia Postop Eval I: Summary Notes Anesthesia Complication No 07/14/24 07:37 [email or web address] Anesthesia Complication Comment: Post-operative progress note Anesthesia: Postop Eval II Evaluation Mental status: Awake and Calm Pain Level: 0 nausea: No Vomiting: No Complications Anesthesia Complication: No 07/14/24901 Mk Diaz Signature: Date CC: Signed Normal [facility] No Panel Informationon 07-14 Surgery Specimen Level IV See Note [facility] [place] Phone: Surgery Specimen Level Regan 07-14-2024 Surgery Specimen Level IV Patient Age/Sex Location Account Attending Physician JAIR WARREN 39/M EN [id number] Price Villanueva, DO Specimen: [id number] Received: 07/14/24 Status: VIGNESH Robledo Num: [id number] Spec Type: EGD BIOPSY Subm Dr: DO ROBERTH QuinonesER OPERATION: Colonoscopy, EGD, biopsy PRE-OP DIAGNOSIS: Crohn's disease, abdominal pain, diarrhea TISSUE SUBMITTED: A- Distal esophagus biopsy, B- Anastomosis biopsy, C- Terminal ileum biopsy MICROSCOPIC DIAGNOSIS A. Distal esophagus, biopsy: * Benign squamous epithelium * Oxyntocardiac type mucosa with mild chronic inflammation, negative for goblet cells B. Anastomosis site, biopsy: * Mild active chronic ileocolitis, negative for dysplasia C. Small intestine, terminal ileum, biopsy: * Small bowel mucosa with no pathologic change COMMENT The patient's clinical history of Crohn's disease is noted MICROSCOPIC DESCRIPTION Slides are reviewed. GROSS DESCRIPTION A. Received in formalin in a container labeled with the patient's name, date of , and distal esophagus biopsy" is a 0.4 x 0.3 x 0.2 cm fragment of fuchs-pink mucosal tissue. Submitted in toto in A1. B. Received in formalin in a container labeled with the patient's name, date of , and "anastomosis biopsy" are 2 fuchs-pink fragments of mucosal tissue measuring 0.4 x 0.3 x 0.3 cm and 0.6 x 0.5 x 0.2 cm. Submitted in toto in B1. C. Received in formalin in a container labeled with the patient's name, date of , and terminal ileum biopsy are 2 fuchs-pink fragments of mucosal tissue, each measuring 0.3 x 0.3 x 0.3 cm. Submitted in toto in C1. [facility] 07-14-2024 [facility]:[id number] Patient Age/Sex Location Account Attending Physician JAIR WARREN 39/M EN [id number] Price Villanueva DO Signed (signature on file) Dr. Melanie Michelle DO 07/15/24 1206 Normal [facility] Comment on above: Performed By: #### P SUIV ####[facility] [id number] [place], [place], [address] [id number] 07-01-2024 [facility] Misc. Normal [facility] Comment on above: Order Comment: [id number] TPMT GREEN RF Result Comment: TEST RESULTS LIMITS Thiopurine Methyltransferase TPMT Activity 24.0 Units/mL RBC Reference Range: Normal: 15.1 - 26.4 Heterozygous for low TPMT variant: 6.3 - 15.0 Homozygous for low TPMT variant: <6.3 Interpretation: The above results can be interpreted as Normal for red blood cell Thiopurine Methyltransferase activity. For patients having an intrinsic low level of TPMT, recent RBC transfusion can variably increase their assayed enzymatic activity depending on the amount and circulating half-life of the transfused red blood cells. This test was developed and its performance characteristics determined by [facility]. It has not been cleared or approved by the Food and Drug Administration. This case has been reviewed, approved, interpreted and electronically signed by Shelton Diaz, PhD, [facility]. Methodology Enzymatic Endpoint/Liquid Chromatography - Tandem Mass Spectrometry (LC-MS/MS) TESTING PERFORMED AT [facility]. ORIGINAL REPORT ON FILE IN LAB CONTAINS ADDITIONAL TEST SITE INFORMATION. Performed By: #### L 3410.9998 #### [facility] Laboratory [address] [place], [address] L3410.9998on 06-27-2024 [facility] COMMENT Normal . [facility] Comment on above: Order Comment: [id number] 0THIOPURINE MET EDTA RF Result Comment: Test Ordered: [id number] Thiopurine Metabolites 6-TGN <31 ES Units of Measure: pmol/8x 10E8 Reference Range: . This test was developed and its performance characteristics determined by [facility]. It has not been cleared or approved by the Food and Drug Administration. Reference Range: For treatment of inflammatory bowel disease (IBD)(1): Suboptimal dosing:<235 pmol 6-TGN/8x10E8 Red Blood Cells Optimal dosin-450 pmol 6-TGN/8x10E8 Red Blood Cells Increasing Risk for Myelotoxicity and Leucopoenia: >450 pmol 6-TGN/8x10E8 Red Blood Cells 1. Mitchell et al. Inflamm Bowel Dis.2011;6(17):7838-2309 6-MMPN <156 ES Units of Measure: pmol/8x 10E8 Reference Range: . This test was developed and its performance characteristics determined by [facility]. It has not been cleared or approved by the Food and Drug Administration. Reference Range: Hepatotoxicity Risk: >5700 pmol 6-MMPN/8x10E8 Red Blood Cells Performed at: [facility] [address] [place] [id number] Diorama Model Maker: Fransisco Brown MD, Phone: [phone] Performed at: [address] [id number] Dior[employer] Model Maker: Jae Jones PhD, Phone: [phone] Performed By: #### L 501.6710, L3410.9998, L503.0106, L506.1001 ####[facility] [address] [place], [place], [address] CRPon 06-20-2024 C-REACTIVE PROT 4.60 mg/L High 0.0-3.0 [facility]; [facility] Work Phone: Comment on above: Performed By: #### L 501.6710, L3410.9998, L503.0106, L506.1001 ####[facility] [address] [place], [place], [address] CRP [Mass/Vol]Ordered By: Leo Sears on 06-20-2024 C-Reactive Protein Extended Range 4.60 mg/L High 0.0-3.0 [facility] Gastroenterology Visit Repor ton 06-20-2024 Gastroenterology Visit Report [facility] Gastroenterology [address] [place] [address] OFFICE VISIT Date of Service: 06/20/24 MR#: [id number] Acct: [id number] Name: BRIANAJAIRNancy HAMEED Rep #: [id number] : 1985 Provider: RENETTA ocampo Age/Sex: 39/M Location: [facility] Status: Signed Intake Vital Signs 05/03/24 15:05 06/13/24 11:00 06/20/24 15:10 Height 6 ft 2 in 6 ft 2 in 6 ft 2 in Weight: 203 lb 2 oz BMI 26.0 BP 148/99 H Respiration 18 Pulse 89 Pulse Oximetry (%) 98 Oxygen Delivery Method room air Intake Visit Reasons: Test Result Chief Complaint: consult post admission Circulation Manager Required: No Accompanied by: Is patient in pain?: No Allergies No Known Allergies Allergy (Verified 06/20/24 15:07) Medications ???Medication ???Instructions ???Recorded ???Confirmed ???Type Bacillus coagulans 250 million 1 tab PO ONCE 06/20/24 06/20/24 Hi story cell chewable tablet (Digestive Advantage Probiotic Gummy) budesonide 3 mg 6 mg (2 x 3 mg) PO QAM Crohn's #60 06/20/24 06/20/24 Rx capsule,delayed,extended release ea metronidazole 500 mg tablet 500 mg PO BID fistulizing Crohn's 06/20/24 06/20/24 Rx #60 tabs PFSH Medical History (Updated 06/13/24 @ 10:47 by Bebe Arango) Wears contact lenses Alcohol use Prostate disease Dietary restriction History of diverticulitis History of Crohn's disease Non-smoker Hypertension Recurrent right inguinal hernia Surgical History (Updated 06/13/24 @ 10:47 by Bebe Arango) History of bowel resection History of appendectomy History of vasectomy ( 03/2018) Hernia Family History Father Arthritis Social History (Updated 04/15/18 @ 15:[address] Orion Zaragoza MD) Smoking Status: Never smoker alcohol intake: current alcohol intake frequency: a few times a month HPI HPI Chief Complaint: consult post admission Details: JAIR WARREN, is a 39 M who presents to the office today for INITIAL CONSULT 05/05/2024 38y/o male presents for consultation post admission. He presented to the ED on 03/21/2024 with complaints of abdominal pain which he had reported was present for >20 years and worse over the past three weeks accompanied by diarrhea. In ED he had a leukocytosis with a left shift, HGB 13.[address] was revealing for appendicitis, thickening of the adjacent SB and 3.2cm pelvic fluid collection. He underwent exploratory laparoscopy, lysis of dense adhesions, oversewing sigmoid enterotomy, ileocecal resection and side to side anastomosis. Pathology is revealing for ileocecal junction with active chronic inflammation with ulceration, full-thickness inflammation, fibrous serosal adhesions and fistula consistent with crohn's. He reports PMH of IBS diagnosed at 18y/o, rectal abscess with I D in 2013. He has had crampy abdominal pain with diarrhea for many years which he always suspected was secondary to IBS and food intolerances. He denies any family history of IBD. He presently complains of RLQ pain with PO intake, he is continuing to experience diarrhea and rectal "jelly" discharge. He denies any rectal pain and reports an initial weight loss of 20lbs post-op but has gained 10lb back. He is tolerating soft foods, but reports diarrhea with any PO intake. Prior to admission and immediately post he was taking IBU or Advil for pain management. He presently denies any rectal bleeding. He has 3-4 loose stools daily, but report no nocturnal stools post-op. Rectal exam is unremarkable, he does have a 2- 3cm ovoid firm fullness right ischium. I have scheduled him for a colonoscopy and EGD. I have ordered MRE, MRI pelvis, labs and stool studies in anticipation of starting biologic therapy. I have reviewed with Dr. Villanueva and I will start him on Metronidazole 250mg BID (until biologic is initiated), Budesonide 9mg QD, probiotic and initiate PA for biologic once labs have resulted. A total of 90 minutes was spent on this visit reviewing [facility]/or [facility] for associated records; previous notes (OP note 03/21, pathology, CT 03/21, CT 03/24, CT 03/27, CBC, CMP,CRP), counseling the patient on (Reviewing pathology findings with patient and , reviewing likely Crohn's diagnosis, reviewing recommended next steps, explained in detail need to solidify the diagnosis of Crohn's which is highly suspected and treat inflammation before considering another alternative for cause of diarrhea such as food allergens which has requested be worked up, reviewing anatomy post-op with side to side anastomosis and lack of IC valve resulting in increased risk of diarrhea, importance of avoiding all NSAIDS, potential treatment approach for IBD), ordering tests (Colon/EGD, MRE, MRI pelvis, CBC, CMP, CRP, Celiac serologies, HBV Core, HBVsAb (more content not included)... Normal [facility] L503.0106on 06-20-2024 Cobalamin (Vitamin B12) [Mass/Vol] 358 pg/mL Normal 180-914 [facility] Comment on above: Performed By: #### L 501.6710, L3410.9998, L503.0106, L506.1001 ####[facility] [address] [place] [place], [address] L506.1001on 06-20-2024 Vitamin D 25-OH 34.6 ng/mL Normal 30-100 [facility]3]; [facility] Work Phone: Comment on above: Result Comment: Rabia min D Status Deficiency: <20 ng/mL (50nmol/L) Insufficiency: 20-30 ng/mL (50-75 nmol/L) Sufficiency: 30-100 ng/mL (75-250 nmol/L) Toxicity: >100 ng/mL (>250 nmol/L) Performed By: #### L 501.6710, L3410.9998, L503.0106, L506.1001 ####[facility] [address] [place], [address] No Panel Informationon 06-20 [facility] Misc. COMMENT Normal [facility]; [facility] Work Phone: [facility] Misc. Normal [facility] Work Phone: Serum or plasma C reactive p rotein measurement (mass/volume)Ordered By: Josefina Sears on 06-20-2024 CRP [Mass/Vol] 4.60 mg/L High 0.0-3.0 [facility] Vitamin B12 ser/plasOrdered By: Josefina Sears on 06-20-2024 Cobalamin (Vitamin B12) [Mass/Vol] 358 pg/mL Normal 180 - 914 pg/mL [facility] Vitamin D, 25-hydroxyOrdered By: Josefina Sears on 06-20-2024 Vitamin D 25-Hydroxy 34.6 ng/mL 30-100 [facility] Comment on above: Vitamin D StatusDefi ciency: <20 ng/mL (50nmol/L)Insufficiency: 20-30 ng/mL (50-75 nmol/L)Sufficiency: 30-100 ng/mL (75-250 nmol/L)Toxicity: >100 ng/mL (>250 nmol/L) Magnetic resonance imaging r eportOrdered By: Tosin Fairchild on 06-14-2024 Study report [facility] Imaging Services [address] [place] [address] Enterography Abd/Pel MR#: [id number] Acct: [id number] Name: JAIR WARREN Rep #: [id number] : 1985 M 39 From: Queta Fairchild MD PCP: Dr. Aman Diop MD Status: BIANCA GALLARDO Study:Enterography Abd/Pel Date of Exam: 06/13/24 Exam# [id number] Ordering Dr: Josefina Sears SLABBER-C PROCEDURE: ENTEROGRAPHY ABD/PEL (procedure code MRIMRIENTER), 06/13/2024 REASON FOR EXAM: K50.90 - Crohn's disease, unspecified, without complications 90 mL Clariscan TECHNIQUE: Multisequence multiplanar MR of the abdomen and pelvis was performed before and after the administration of IV contrast. IV CONTRAST: 19 mL Clariscan COMPARISON: None FINDINGS: Variable overall mild motion limitation with some sequences being mild/moderately motion degraded. Note that the exam is optimized for evaluation of the bowel and rather than the remaining abdominopelvic viscera. Some largely upper abdominal viscera are excluded from the field of view on some sequences. Note also that dynamic precontrast imaging and diffusion-weighted sequences were not performed. Note also that a small portion of the transverse colon extends above the field of view at the level of the splenic flexure. Note that the perianal region is excluded from the field of view of most axial imaging. Liver: Grossly unremarkable.. Spleen: Grossly unremarkable.. Gallbladder: Unremarkable.. Pancreas: Unremarkable. Adrenals: Unremarkable. Kidneys: Tiny cyst on the left.. Bowel: Partially imaged splenic flexure as. No bowel dilatation or convincing inflammation. Suspect ileocecectomy with ileocecal anastomosis. Short segment (approximately 2 cm) of borderline mild T2dark wall thickening along the neoterminal ileum, up to a maximum 5 mm without mural stratification, hyperemia or adjacent mesenteric inflammation. No other convincing areas of abnormal wall thickening allowing for underdistention thickening of some segments. No evidence of fistulization or abscess. Appendix probably surgically absent.. Lymph nodes: Unremarkable. Vasculature: Unremarkable. Peritoneum: Unremarkable. Bladder: 8 mm suspected urachal cyst along the midline anterior bladder dome. Reproductive Organs: Grossly unremarkable.. Body Wall: Operative changes. Bones: Presumed hemangioma in a lower thoracic vertebral body in the absence of known malignancy. Trace thoracolumbar dextroscoliosis may be positional. MRI/Enterography Abd/Pel IMPRESSION: 1. Suspect ileocecectomy with ileocolic anastomosis. There is a short segment of mild apparent wall thickening along the neoterminal ileum, without convincing evidence of associated active inflammation. This could be related to underdistention, or perhaps fibrosis related to previous inflammation. This would be optimally ended evaluated endoscopically. No bowel dilatation to confirm that this reflects a stricture. No other abnormal areas of abnormal bowel are confidently identified, allowing for limitations. No definite evidence of penetrating disease such as fistulization or abscess. 2. Additional description as above. Reading Location: [facility] CC: RENETTA Sears; Dr. Aman Diop MD ~ [employer] Consultant: Signed [facility] Enterography Abd/Jadon 06-13 Enterography Abd/Pel [facility] Imaging Services [address] [place] [address] Enterography Abd/Pel MR#: [id number] Acct: [id number] Name: JAIR WARREN Rep #: [id number] : 1985 M 39 From: Tosin Fairchild MD PCP: Dr. Aman Diop MD Status: REG CLI Study: Enterography Abd/Pel Date of Exam: 06/13/24 Exam# [id number] Ordering Dr: Josefina Sears PROCEDURE: ENTEROGRAPHY ABD/PEL (procedure code MRIMRIENTER), 06/13/2024 REASON FOR EXAM: K50.90 - Crohn's disease, unspecified, without complications 90 mL Clariscan TECHNIQUE: Multisequence multiplanar MR of the abdomen and pelvis was performed before and after the administration of IV contrast. IV CONTRAST: 19 mL Clariscan COMPARISON: None FINDINGS: Variable overall mild motion limitation with some sequences being mild/moderately motion degraded. Note that the exam is optimized for evaluation of the bowel and rather than the remaining abdominopelvic viscera. Some largely upper abdominal viscera are excluded from the field of view on some sequences. Note also that dynamic precontrast imaging and diffusion-weighted sequences were not performed. Note also that a small portion of the transverse colon extends above the field of view at the level of the splenic flexure. Note that the perianal region is excluded from the field of view of most axial imaging. Liver: Grossly unremarkable.. Spleen: Grossly unremarkable.. Gallbladder: Unremarkable.. Pancreas: Unremarkable. Adrenals: Unremarkable. Kidneys: Tiny cyst on the left.. Bowel: Partially imaged splenic flexure as. No bowel dilatation or convincing inflammation. Suspect ileocecectomy with ileocecal anastomosis. Short segment (approximately 2 cm) of borderline mild T2 dark wall thickening along the neoterminal ileum, up to a maximum 5 mm without mural stratification, hyperemia or adjacent mesenteric inflammation. No other convincing areas of abnormal wall thickening allowing for underdistention thickening of some segments. No evidence of fistulization or abscess. Appendix probably surgically absent.. Lymph nodes: Unremarkable. Vasculature: Unremarkable. Peritoneum: Unremarkable. Bladder: 8 mm suspected urachal cyst along the midline anterior bladder dome. Reproductive Organs: Grossly unremarkable.. Body Wall: Operative changes. Bones: Presumed hemangioma in a lower thoracic vertebral body in the absence of known malignancy. Trace thoracolumbar dextroscoliosis may be positional. MRI/Enterography Abd/Pel IMPRESSION: 1. Suspect ileocecectomy with ileocolic anastomosis. There is a short segment of mild apparent wall thickening along the neoterminal ileum, without convincing evidence of associated active inflammation. This could be related to underdistention, or perhaps fibrosis related to previous inflammation. This would be optimally ended evaluated endoscopically. No bowel dilatation to confirm that this reflects a stricture. No other abnormal areas of abnormal bowel are confidently identified, allowing for limitations. No definite evidence of penetrating disease such as fistulization or abscess. 2. Additional description as above. Reading Location: [facility] CC: SLABBERDrew Sears; Dr. Aman Diop MD [employer] Consultant: Signed Normal [facility] Magnetic resonance imaging r eportOrdered By: Tosin Fairchild on 06-07-2024 Study report [facility] Imaging Services [address] [place] [address] Pelvis W/WO Contrast MR#: [id number] Acct: [id number] Name: JAIR WARREN Rep #: [id number] : 1985 M 39 From: Queta Fairchild MD PCP: Care Physician,No Primary Status: REG CLI Study:Pelvis W/WO Contrast Date of Exam: 06/07/24 Exam# [id number] Ordering Dr: Josefina Sears PROCEDURE: PELVIS W/WO CONTRAST REASON FOR EXAM: R/O rectal / ischial abcess TECHNIQUE: Multiplanar multisequence MRI was performed of the pelvis prior to and followingthe administration of IV contrast. CONTRAST: 18 mL Clariscan COMPARISON: None. FINDINGS: Note axial postcontrast imaging was not performed. Visualized bowel: Unremarkable. No findings to suggest a perirectal, perianal, or ischial abscess. Lymph nodes: Unremarkable. Vasculature: Unremarkable. Peritoneum: Unremarkable. Bladder: Underdistended and suboptimally evaluated. 10 mm suspected urachal cyst along the anterior midline bladder dome. Reproductive: Small bilateral hydroceles. Bandlike T2 hypointensity in the prostatic peripheral zone, incompletely characterized on nondedicated assessment but with morphology typical for mild chronic prostatitis, a common incidental finding. Pelvic wall: Operative changes. Bones: Unremarkable. MRI/Pelvis W/WO Contrast IMPRESSION: 1. Unremarkable appearance of the included bowel. No findings to suggest a perirectal, perianal, or ischial abscess. If unexplained symptoms persist, consider CT abdomen/pelvis with contrast. 2. Additional description as above. Reading Location: [facility] CC: RENETTA Sears; No Primary Care Physician ~ [employer] Consultant: Signed [facility] Pelvis W/WO Contraston 06-07 Pelvis W/WO Contrast [facility] Imaging Services [address] [place] [address] Pelvis W/WO Contrast MR#: [id number] Acct: [id number] Name: JAIR WARREN Rep #: [id number] : 1985 M 39 From: Tosin Fairchild MD PCP: Care Physician,No Primary Status: REG CLI Study: Pelvis W/WO Contrast Date of Exam: 06/07/24 Exam# [id number] Ordering Dr: Josefina Sears PROCEDURE: PELVIS W/WO CONTRAST REASON FOR EXAM: R/O rectal / ischial abcess TECHNIQUE: Multiplanar multisequence MRI was performed of the pelvis prior to and following the administration of IV contrast. CONTRAST: 18 mL Clariscan COMPARISON: None. FINDINGS: Note axial postcontrast imaging was not performed. Visualized bowel: Unremarkable. No findings to suggest a perirectal, perianal, or ischial abscess. Lymph nodes: Unremarkable. Vasculature: Unremarkable. Peritoneum: Unremarkable. Bladder: Underdistended and suboptimally evaluated. 10 mm suspected urachal cyst along the anterior midline bladder dome. Reproductive: Small bilateral hydroceles. Bandlike T2 hypointensity in the prostatic peripheral zone, incompletely characterized on nondedicated assessment but with morphology typical for mild chronic prostatitis, a common incidental finding. Pelvic wall: Operative changes. Bones: Unremarkable. MRI/Pelvis W/WO Contrast IMPRESSION: 1. Unremarkable appearance of the included bowel. No findings to suggest a perirectal, perianal, or ischial abscess. If unexplained symptoms persist, consider CT abdomen/pelvis with contrast. 2. Additional description as above. Reading Location: [id number] CC: SLABBERAbram[employer] Josefina Sears; No Primary Care Physician [employer] Consultant: Signed Normal [facility] US RUQ (GB/PANCREAS)on 05-25 US RUQ (GB/PANCREAS) [address] [address] Patient: JAIR WARREN Phone#: : 1985 Age: 38 Gender: M Pt. Type: Out Account: [id number] Location: 062 Ordering: JENNIFER WARREN Exam Date: 05/25/2024/7:57 Family Phys: AMAN DIOP Charge Code: 912209 Physician: Elbert Order #: [id number] Dose#: PROCEDURE: RUQ (GB) ULTRASOUND [facility]/PELVIS W CON, 03/21/2024, 6:41. INDICATIONS: Postprandial right upper quadrant pain. FINDINGS: LIVER: Liver is mildly diffusely increased in echogenicity, nonspecific but most often secondary to diffuse fatty infiltration of the liver though fibrosis may appear similar. Focal area of hypoechoic parenchyma in the right lobe measures 3.5 x 1.6 x 2.9 cm, most consistent with focal fatty sparing. Second similar appearing area of hypoechogenic parenchyma measures 2.3 x 2.5 cm. BILIARY: Normal. Normal appearing gallbladder and biliary tree. Common bile duct diameter 5 mm. Gallbladder wall measures 0.2 cm in thickness. PANCREAS: Normal. No visible mass, abnormal atrophy, or ductal dilatation. RIGHT KIDNEY: Normal renal parenchymal echogenicity. No hydronephrosis. Right kidney measures 13.7 by 4.7 x 6.8 cm OTHER: Negative. CONCLUSION: 1. Probable diffuse fatty small areas of probable focal fatty sparing. If there is concern for underlying fibrosis or other lesion, consider MRI without and with contrast for further characterization. DICTATED BY: CAROLINA CHAU MD ON 05/25/2024 AT 14:58 APPROVED BY: CAROLINA CHAU MD ON 05/25/2024 AT 15:02 Normal [facility] OVA & PARASITE EXAM [CCL]on 05-11-2024 OVA AND PARASITE EXAM See Below Normal [facility] Comment on above: Result Comment: OVA AND PARASITE EXAM No Parasites Seen This test can not identify the presence of Cryptosporidium, Cyclospora or Cystoisospora (order CRYSPO); Microsporidia (order MICSPO) or consider ordering STGIPI (molecular test to detect common infectious causes of diarrhea). A single negative test result does not rule out a parasitic infection. Due to intermittent shedding of parasites, it is recommended that three specimens collected over a 7 day period are submitted to improve detection sensitivity. SOURCE: Stool [facility] [place] [address] [place] [address] Tim Santana III, M.D. [id number] Performed By: #### 2 81848 #### [facility],[address] [place] [address] EX. STOOL GI PANEL BY PCR [C CL]on 05-09-2024 EX. STOOL GI PANEL BY PCR [CCL] Normal [facility] Comment on above: Result Comment: _STO OL GASTROINTESTINAL PANEL BY PCR_ SEE SCANNED REPORT Performed By: #### 2 [id number] #### [facility],[address] [place], [place] [id number] C diff Tox gens Stl Ql LA NENA+p robeon 05-07-2024 C. difficile toxin genes LA NENA+probe Ql (Stl) Negative Normal Negative for C. difficile toxin by PCR [facility] Comment on above: Order Comment: Speci men Type: STOOL SPECIMENOrdering Facility: [facility] Address: [address] [place] [address] Performed By: #### 5 4067-4, 13469-0 ####[facility] [id number] [place] [address] [place] CLOSTRIDIUM DIFFICLE TOXIN P CR [CCL]on 05-07-2024 RESULT CRITICAL? NO Normal [facility] Comment on above: Performed By: #### 2 23072 #### [facility],[address],[place] [address] C difficile PCR Negative Normal Negative for C. difficile [facility] Comment on above: Result Comment: [facility] [address] [place] [id number] Tim Santana III, M.D. [id number] Performed By: #### 2 81387 #### [facility],[address] [place] [address] Calprotectin, Stoolon [address] 71 ug/g Normal 0-120 [facility] Comment on above: Result Comment: Conc entration Interpretation Follow-Up < 5 - 50 ug/g Normal None >50 -120 ug/g Borderline Re-evaluate in 4-6 weeks >120 ug/g Abnormal Repeat as clinically indicated Performed at: [facility] [id number] [employer] Model Maker: Jimbo Beauchamp MD, Phone: [phone] Performed By: #### L 4357.0700 ####[facility] [address] [facility] [place], [address] Gastrointestinal pathogens p ronaldo [place] NENA+probe (Stl)on 05-07-2024 ADENOVIRUS F 40/41 DNA Not detected Normal Not Detected [facility] Comment on above: Order Comment: Klaus colindres Type: STOOL SPECIMENOrdering Facility: [facility] Address: [address] [place] [address] Performed By: #### 5 4067-4, 78403-2 ####[facility] LABCLIA [id number] [address] [address] [place] ASTROVIRUS RNA Not detected Normal Not Detected [facility] Comment on above: Order Comment: Klaus colindres Type: STOOL SPECIMENOrdering Facility: [facility] Address: [address] [place], [place] [id number] Performed By: #### 5 4067-4, 78682-7 ####[facility] LABCLIA [id number] [address] [address] [place] C. cayetanensis DNA LA NENA+probe Ql (Unsp spec) Not detected Normal Not Detected [facility] Comment on above: Order Comment: Speci men Type: STOOL SPECIMENOrdering Facility: [facility] Address: [address] [place] [address] Performed By: #### 5 4067-4, 00188-2 ####[facility] LABCLIA [id number] [place] [address] [place] Campylobacter sp DNA.diarrheagenic [place] NENA+probe Ql (Stl) Not detected Normal Not Detected [facility] Comment on above: Order Comment: Speci men Type: STOOL SPECIMENOrdering Facility: [facility] Address: [address] [place] [address] Performed By: #### 5 4067-4, 88370-9 ####[facility] LABCLIA [id number] [place] [address] [place] Cryptosporidium sp DNA LA NENA+probe Ql (Unsp spec) Not detected Normal Not Detected [facility] Comment on above: Order Comment: Speci men Type: STOOL SPECIMENOrdering Facility: [facility] Address: [address] [place] [address] Performed By: #### 5 4067-4, 30008-6 ####[facility] LABCLIA [id number] [place] [address] [place] E. coli O157:H7 DNA LA NENA+probe Ql (Unsp spec) Not applicable Normal Not detected [facility] Comment on above: Order Comment: Speci men Type: STOOL SPECIMENOrdering Facility: [facility] Address: [address] [place] [address] Performed By: #### 5 4067-4, 46456-9 ####[facility] LABCLIA [id number] [place] [address] [place] E. coli stx1+stx2 genes LA NENA+probe Ql (Stl) Not detected Normal Not Detected [facility] Comment on above: Order Comment: Speci men Type: STOOL SPECIMENOrdering Facility: [facility] Address: [address] [place] [address] Performed By: #### 5 4066-4, 56694-7 ####[facility] LABCLIA [id number] [address] [address] [place] E. histolytica DNA LA NENA+probe Ql (Unsp spec) Not detected Normal Not Detected [facility] Comment on above: Order Comment: Speci men Type: STOOL SPECIMENOrdering Facility: [facility] Address: [address] [place] [address] Performed By: #### 5 4066-4, 92682-9 ####[facility] LABCLIA [id number] [place] [address] [place] ENTEROAGGREGATIVE E. COLI (EAEC) DNA Not detected Normal Not Detected [facility] Comment on above: Order Comment: Speci men Type: STOOL SPECIMENOrdering Facility: [facility] Address: [address] [place] [address] Performed By: #### 5 4066-4, 73026-7 ####[facility] LABCLIA [id number] [place] [address] [place] ENTEROPATHOGENIC E. COLI (EPEC) DNA Not detected Normal Not detected [facility] Comment on above: Order Comment: Speci men Type: STOOL SPECIMENOrdering Facility: [facility] Address: [address] [place] [address] Performed By: #### 5 4066-4, 74637-4 ####[facility] LABCLIA [id number] [place] [id number] [place] ENTEROTOXIGENIC E. COLI (ETEC) DNA Not detected Normal Not Detected [facility] Comment on above: Order Comment: [facility]i [facility] Type: STOOL SPECIMENOrdering Facility: [facility] Address: [address] [place] [address] Performed By: #### 5 4066-4, 11178-0 ####[facility] LABCLIA [id number] [place] [address] [place] G. lamblia DNA LA NENA+probe Ql (Unsp spec) Not detected Normal Not Detected [facility] Comment on above: Order Comment: Speci men Type: STOOL SPECIMENOrdering Facility: [facility] Address: [address] [place] [address] Performed By: #### 5 7-4, 06747-0 ####[facility] LABCLIA [id number] [place] [address] [place] NOROVIRUS GI/GII RNA Not detected Normal Not Detected [facility] Comment on above: Order Comment: Speci men Type: STOOL SPECIMENOrdering Facility: [facility] Address: [address] [place] [address] Performed By: #### 5 4066-4, 84805-4 ####[facility] LABCLIA [id number] [place] [address] [place] PLESIOMONAS SHIGELLOIDES DNA Not detected Normal Not Detected [facility] Comment on above: Order Comment: Speci men Type: STOOL SPECIMENOrdering Facility: [facility] Address: [address] [place] [address] Performed By: #### 5 4066-4, 78440-6 ####[facility] LABCLIA [id number] [place] [address] [place] ROTAVIRUS A RNA Not detected Normal Not Detected [facility] Comment on above: Order Comment: [facility]i [facility] Type: STOOL SPECIMENOrdering Facility: [facility] Address: [address] [place] [address] Performed By: #### 5 4066-4, 75966-1 ####[facility] LABCLIA [id number] [place] [id number] [place] Salmonella sp DNA LA NENA+probe Ql (Unsp spec) Not detected Normal Not Detected [facility] Comment on above: Order Comment: Speci men Type: STOOL SPECIMENOrdering Facility: [facility] Address: [address] [place] [address] Performed By: #### 5 4067-4, 00975-8 ####[facility] LABCLIA [id number] [place] [address] [place] SAPOVIRUS (GENOGROUPS I, II, IV, V) RNA Not detected Normal Not Detected [facility] Comment on above: Order Comment: Speci men Type: STOOL SPECIMENOrdering Facility: [facility] Address: [address] [place] [address] Performed By: #### 5 4067-4, 35016-4 ####[facility] LABCLIA [id number] [place] [address] [place] Shigella species+EIEC invasion plasmid antigen H ipaH gene LA NENA+probe Ql (Stl) Not detected Normal Not Detected [facility] Comment on above: Order Comment: Speci men Type: STOOL SPECIMENOrdering Facility: [facility] Address: [address] [place] [address] Performed By: #### 5 4067-4, 91780-3 ####[facility] LABCLIA [id number] [place] [address] [place] V. cholerae DNA LA NENA+probe Ql (Unsp spec) Not detected Normal Not Detected [facility] Comment on above: Order Comment: Speci men Type: STOOL SPECIMENOrdering Facility: [facility] Address: [address] [place] [address] Performed By: #### 5 4067-4, 23454-6 ####[facility] LABCLIA [id number] [place] [address] [place] Vibrio sp DNA LA NENA+probe Nom (Unsp spec) Not detected Normal Not Detected [facility] Comment on above: Order Comment: Speci men Type: STOOL SPECIMENOrdering Facility: [facility] Address: [address] [place] [address], [place] [id number] Performed By: #### 5 4067-4, 99895-6 ####[facility] LABCLIA [id number] [address] [place] Yersinia sp DNA LA NENA+probe Nom (Unsp spec) Not detected Normal Not Detected [facility] Comment on above: Order Comment: Speci men Type: STOOL SPECIMENOrdering Facility: [facility] Address: [address] , [place] [address] Performed By: #### 5 4067-4, 45014-8 ####[facility] LABCLIA [id number] [address] [place] No Panel Informationon 05-06 C difficile PCR Negative Normal [facility] Work Phone: EX. STOOL GI PANEL BY PCR [CCL] Normal [facility] [employer] [facility] Work Phone: OVA AND PARASITE EXAM See Below Normal [facility] [employer] [facility]. Work Phone: RESULT CRITICAL? NO Normal [facility] Work Phone: O+P Spec Microon 05-06-2024 Ova and parasites identified LM Nom (Unsp spec) OVA AND PARASITE EXAM: No Parasites Seen Normal [facility] Comment on above: Performed By: #### 6 73-4 ####[facility] LABCLIA [id number] [place] [address] [place] Celiac Disease Profileon ENDOMYSIAL IGA Negative Normal Negative [facility] Comment on above: Performed By: #### L 3890.6200, L100.0100, L3400.8000, L3100.0460, L3890.6100, L500.4050, L3410.2400 ####[facility] [address] [place], [address] IMMUNOGLOB A QN 148 mg/dL Normal 90-386 [facility] Comment on above: Performed By: #### L 3890.6200, L100.0100, L3400.8000, L3100.0460, L3890.6100, L500.4050, L3410.2400 ####[facility] [address] [place], [address] tTG IGA <2 Normal 0-3 [facility] Comment on above: Result Comment: Nega tive 0 - 3 Weak Positive 4 - 10 Positive >10 Tissue Transglutaminase (tTG) has been identified as the endomysial antigen. Studies have demonstr- ated that endomysial IgA antibodies have over 99% specificity for gluten sensitive enteropathy. Performed By: #### L 3890.6200, L100.0100, L3400.8000, L3100.0460, L3890.6100, L500.4050, L3410.2400 ####[facility] [address] [place], [address] Hepatitis B Core Ab Totalon 05-05-2024 HEP B CORE,TOT Negative Normal Negative [facility] Comment on above: Result Comment: Perf ormed at: - [facility] [id number] [employer] Maker: Jae Jones PhD, Phone: [phone] Performed By: #### L 3890.6200, L100.0100, L3400.8000, L3100.0460, L3890.6100, L500.4050, L3410.2400 ####[facility] [address] [place], [address] Quantiferon TB-Gold+on 05-05 QFT MITOGEN KALI > 10.00 Normal . [facility] Comment on above: Performed By: #### L 3890.6200, L100.0100, L3400.8000, L3100.0460, L3890.6100, L500.4050, L3410.2400 ####[facility] [address] [place], [place], [phone] QFT NIL VALUE 0.01 IU/mL Normal . [facility] Comment on above: Performed By: #### L 3890.6200, L100.0100, L3400.8000, L3100.0460, L3890.6100, L500.4050, L3410.2400 ####[facility] [address] [place], [place], [phone]) QFT TB GOLD+ Comment Normal . [facility] Comment on above: Result Comment: Juan tiFERON-TB Gold Plus is a qualitative indirect test for M tuberculosis infection (including disease) and is intended for use in conjunction with risk assessment, radiography, and other medical and diagnostic evaluations. The QuantiFERON-TB Gold Plus result is determined by subtracting the Nil value from either TB antigen (Ag) value. The Mitogen tube serves as a control for the test. Performed By: #### L 3890.6200, L100.0100, L3400.8000, L3100.0460, L3890.6100, L500.4050, L3410.2400 ####[facility] [address] [place], [address] QFT TB POS CRIT Negative Normal Negative [facility] Comment on above: Result Comment: No r esponse to M tuberculosis antigens detected. Infection with M tuberculosis is unlikely, but high risk individuals should be considered for additional testing (ATS/IDSA/CDC Clinical Practice Guidelines, 2017). The reference range is an Antigen minus Nil result of <0.35 IU/mL. The specimen received for QuantiFERON testing was incubated by the ordering institution. Specific procedures outlined in our Directory of Services and in the package insert for the QuantiFERON Gold (In Tube) test must be followed to enable for proper stimulation of cells for the production of interferon gamma. Chemiluminescence immunoassay methodology Performed By: #### L 3890.6200, L100.0100, L3400.8000, L3100.0460, L3890.6100, L500.4050, L3410.2400 ####[facility] [address] [place], [place], [phone]) QFT TB1+ AG KALI 0 IU/mL Normal . [facility] Comment on above: Performed By: #### L 3890.6200, L100.0100, L3400.8000, L3100.0460, L3890.6100, L500.4050, L3410.2400 ####[facility] [address] [place], [place], [phone]) QFT TB2+ AG KALI 0 IU/mL Normal . [facility] Comment on above: Performed By: #### L 3890.6200, L100.0100, L3400.8000, L3100.0460, L3890.6100, L500.4050, L3410.2400 ####[facility] [address] [place], [place], [phone] Absolute lymphocyte countOrd ered By: Josefina Sears on 05-03-2024 Lymphocytes Auto (Unsp spec) [#/Vol] 0.56 10*3/uL Low 0.83-4.51 [facility] Absolute neutrophil countOrd ered By: Josefina Sears on 05-03-2024 Neutrophils (Bld) [#/Vol] 5.9 10*3/uL 2.0-7.7 [facility] Albumin to globulin ratioOrd ered By: Josefina Sears on 05-03-2024 Albumin/Globulin [Mass ratio] 1.2 {ratio} 0.9-2.4 [facility] Automated lymphocyte count a s percentage of total leukocytesOrdered By: Josefina Sears on 05-03-2024 Lymphocytes/100 WBC Auto (Unsp spec) 7.9 % Low 19-41 [facility] Basophil percentageOrdered B y: Josefina Sears on 05-03-2024 Basophils/100 WBC (Bld) 0.6 % 0-1 [facility] Bilirubin, totalOrdered By: Josefina Sears on 05-03-2024 Bilirubin [Mass/Vol] 1.50 mg/dL High 0.20-1.00 [facility] Comment on above: For patients on eltr ombopag therapy, use of Dimension [place] TBIL is not recommended. Blood urea nitrogen (BUN)/cr eatinine ratioOrdered By: Josefina Sears on 05-03-2024 Urea nitrogen/Creatinine [Mass ratio] 8.4 mg/mg Low 10- [facility] CBC W/Diff, Automatedon 04-07 Absolute Lymph 0.56 X10 3/uL Low 0.83-4.51 [facility] Comment on above: Performed By: #### L 3890.6200, L100.0100, L3400.8000, L3100.0460, L3890.6100, L500.4050, L3410.2400 ####[facility] [address] [place], [address] Absolute Neut 5.9 X10 3/uL Normal 2.0-7.7 [facility] Comment on above: Performed By: #### L 3890.6200, L100.0100, L3400.8000, L3100.0460, L3890.6100, L500.4050, L3410.2400 ####[facility] [address] [place], [address] Basophils/100 WBC (Bld) 0.6 % Normal 0-1 [facility] Comment on above: Performed By: #### L 3890.6200, L100.0100, L3400.8000, L3100.0460, L3890.6100, L500.4050, L3410.2400 ####[facility] [address] [place], [address] Eosinophils/100 WBC (Bld) 2.4 % Normal 0-5 [facility] Comment on above: Performed By: #### L 3890.6200, L100.0100, L3400.8000, L3100.0460, L3890.6100, L500.4050, L3410.2400 ####[facility] [address] [place], [address] Erythrocyte distribution width (RBC) [Ratio] 13.6 % Normal 11.6-14.6 [facility] Comment on above: Performed By: #### L 3890.6200, L100.0100, L3400.8000, L3100.0460, L3890.6100, L500.4050, L3410.2400 ####[facility] [address] [place], [address] Hematocrit (Bld) [Volume fraction] 41.6 % Normal 40-54 [facility] Comment on above: Performed By: #### L 3890.6200, L100.0100, L3400.8000, L3100.0460, L3890.6100, L500.4050, L3410.2400 ####[facility] [address] [place], [address] Hemoglobin (Bld) [Mass/Vol] 13.7 g/dL Normal 13.0-16.5 [facility] Comment on above: Performed By: #### L 3890.6200, L100.0100, L3400.8000, L3100.0460, L3890.6100, L500.4050, L3410.2400 ####[facility] [address] [place], [address] IG% 0.300 Normal 0.0-0.9 [facility] Comment on above: Result Comment: IG% - Immature Granulocytes (promyelocytes, myelocytes and metamyelocytes) > 1% indicates that a LEFT SHIFT is Present. Performed By: #### L 3890.6200, L100.0100, L3400.8000, L3100.0460, L3890.6100, L500.4050, L3410.2400 ####[facility] [address] [place], [address] Lymphocytes/100 WBC (Bld) 7.9 % Low 19-41 [facility] Comment on above: Performed By: #### L 3890.6200, L100.0100, L3400.8000, L3100.0460, L3890.6100, L500.4050, L3410.2400 ####[facility] [address] [place], [address] MCH (RBC) [Entitic mass] 27.6 pg Normal 27.0-32.0 [facility] Comment on above: Performed By: #### L 3890.6200, L100.0100, L3400.8000, L3100.0460, L3890.6100, L500.4050, L3410.2400 ####[facility] [address] [place], [address] MCHC (RBC) [Mass/Vol] 32.9 g/dL Normal 32-36 [facility] Comment on above: Performed By: #### L 3890.6200, L100.0100, L3400.8000, L3100.0460, L3890.6100, L500.4050, L3410.2400 ####[facility] [address] [place], [address] MCV (RBC) [Entitic vol] 83.7 fL Normal 80-94 [facility] Comment on above: Performed By: #### L 3890.6200, L100.0100, L3400.8000, L3100.0460, L3890.6100, L500.4050, L3410.2400 ####[facility] [address] [place], [address] Monocytes/100 WBC (Bld) 6.7 % Normal 0-10 [facility] Comment on above: Performed By: #### L 3890.6200, L100.0100, L3400.8000, L3100.0460, L3890.6100, L500.4050, L3410.2400 ####[facility] [address] [place], [address] Neutrophils/100 WBC (Bld) 82.1 % High 47-70 [facility] Comment on above: Performed By: #### L 3890.6200, L100.0100, L3400.8000, L3100.0460, L3890.6100, L500.4050, L3410.2400 ####[facility] [address] [place], [address] Nucleated RBC (Bld) [#/Vol] 0 10*3/uL Normal 0-5 [facility] Comment on above: Performed By: #### L 3890.6200, L100.0100, L3400.8000, L3100.0460, L3890.6100, L500.4050, L3410.2400 ####[facility] [address] [place], [address] Platelet mean volume (Bld) [Entitic vol] 10.5 fL Normal 6.2-12.0 [facility] Comment on above: Performed By: #### L 3890.6200, L100.0100, L3400.8000, L3100.0460, L3890.6100, L500.4050, L3410.2400 ####[facility] [address] [place], [address] Platelets (Bld) [#/Vol] 234 10*3/uL Normal 150-450 [facility] Comment on above: Performed By: #### L 3890.6200, L100.0100, L3400.8000, L3100.0460, L3890.6100, L500.4050, L3410.2400 ####[facility] [address] [place], [address] RBC (Bld) [#/Vol] 4.97 10*6/uL Normal 4.6-6.2 [facility] Comment on above: Performed By: #### L 3890.6200, L100.0100, L3400.8000, L3100.0460, L3890.6100, L500.4050, L3410.2400 ####[facility] [address] [place], [address](710) RDW SD 41.6 fl Normal 35.1-43.9 [facility] Comment on above: Performed By: #### L 3890.6200, L100.0100, L3400.8000, L3100.0460, L3890.6100, L500.4050, L3410.2400 ####[facility] [address] [place], [address](404) WBC (Bld) [#/Vol] 7.1 10*3/uL Normal 4.4-11.0 [facility] Comment on above: Performed By: #### L 3890.6200, L100.0100, L3400.8000, L3100.0460, L3890.6100, L500.4050, L3410.2400 ####[facility] [address] [place], [address] Calprotectin stoolOrdered By : Josefina Sears on 05-03-2024 Calprotectin stool 71 ug/g 0-120 [facility] Comment on above: Concentration Interp retation Follow-Up< 5 - 50 ug/g Normal None>50 -120 ug/g Borderline Re-evaluate in 4-6 weeks >120 ug/g Abnormal Repeat as clinically indicatedPerformed at: - [facility] [id number] Director: Jimbo Beauchamp MD, Phone: [phone] Stool Calprotectin 71 ug/g 0-120 [facility] Comment on above: Concentration Interp retation Follow-Up< 5 - 50 ug/g Normal None>50 -120 ug/g Borderline Re-evaluate in 4-6 weeks >120 ug/g Abnormal Repeat as clinically indicatedPerformed at: - [facility] [id number] [place], [place] [id number] Director: Jimbo Beauchamp MD, Phone: [phone] Carbon dioxide measurementOr dered By: Josefina Sears on 05-03-2024 CO2 [Moles/Vol] 30.0 mmol/L 21.0-32.0 [facility] Chloride measurementOrdered By: Josefina Sears on 05-03-2024 Chloride [Moles/Vol] 103 mmol/L 98-107 [facility] Comprehensive Metabolic Prof ilon 05-03-2024 Albumin [Mass/Vol] 4.3 g/dL Normal 3.2-5.0 [facility] Comment on above: Performed By: #### L 3890.6200, L100.0100, L3400.8000, L3100.0460, L3890.6100, L500.4050, L3410.2400 ####[facility] [address] [place], [address] Albumin/Globulin [Mass ratio] 1.2 {ratio} Normal 0.9-2.4 [facility] Comment on above: Performed By: #### L 3890.6200, L100.0100, L3400.8000, L3100.0460, L3890.6100, L500.4050, L3410.2400 ####[facility] [address] [place], [address] ALK P 99 U/L Normal 45-117 [facility] Comment on above: Performed By: #### L 3890.6200, L100.0100, L3400.8000, L3100.0460, L3890.6100, L500.4050, L3410.2400 ####[facility] [address] [place], [address] ALT [Catalytic activity/Vol] 51 U/L Normal 16-61 [facility] Comment on above: Performed By: #### L 3890.6200, L100.0100, L3400.8000, L3100.0460, L3890.6100, L500.4050, L3410.2400 ####[facility] [address] [place], [address] AST [Catalytic activity/Vol] 22 U/L Normal 15-37 [facility] Comment on above: Performed By: #### L 3890.6200, L100.0100, L3400.8000, L3100.0460, L3890.6100, L500.4050, L3410.2400 ####[facility] [address] [place], [address] Bilirubin [Mass/Vol] 1.50 mg/dL High 0.20-1.00 [facility] Comment on above: Result Comment: For patients on eltrombopag therapy, use of Dimension [place] TBIL is not recommended. Performed By: #### L 3890.6200, L100.0100, L3400.8000, L3100.0460, L3890.6100, L500.4050, L3410.2400 ####[facility] [address] [place], [address] BUN/CRE 8.4 RATIO Low 10-20 [facility] Comment on above: Performed By: #### L 3890.6200, L100.0100, L3400.8000, L3100.0460, L3890.6100, L500.4050, L3410.2400 ####[facility] [address] [place], [address] CA,Total 9.7 mg/dL Normal 8.5-10.1 [facility] Comment on above: Performed By: #### L 3890.6200, L100.0100, L3400.8000, L3100.0460, L3890.6100, L500.4050, L3410.2400 ####[facility] [address] [place], [address] Chloride [Moles/Vol] 103 mmol/L Normal 98-107 [facility] Comment on above: Performed By: #### L 3890.6200, L100.0100, L3400.8000, L3100.0460, L3890.6100, L500.4050, L3410.2400 ####[facility] [address] [place], [address] CO2 [Moles/Vol] 30.0 mmol/L Normal 21.0-32.0 [facility] Comment on above: Performed By: #### L 3890.6200, L100.0100, L3400.8000, L3100.0460, L3890.6100, L500.4050, L3410.2400 ####[facility] [address] [place], [address] Creatinine [Mass/Vol] 0.83 mg/dL Normal 0.70-1.30 [facility] Comment on above: Result Comment: The validity of the calculated GFR GFRAA in patients over 70 years has not been determined. Clinical correlation is essential. Performed By: #### L 3890.6200, L100.0100, L3400.8000, L3100.0460, L3890.6100, L500.4050, L3410.2400 ####[facility] [address] [place], [address] EST GFR - AA 132 mL/min Normal >60 [facility] Comment on above: Result Comment: Afri can Montenegrin GFR Calc Performed By: #### L 3890.6200, L100.0100, L3400.8000, L3100.0460, L3890.6100, L500.4050, L3410.2400 ####[facility] [address] [place], [address] GAP 5 Normal 5-15 [facility] Comment on above: Performed By: #### L 3890.6200, L100.0100, L3400.8000, L3100.0460, L3890.6100, L500.4050, L3410.2400 ####[facility] [address] [place], [address] GFR/1.73 sq M.predicted among non-blacks MDRD (S/P/Bld) [Vol rate/Area] 109 mL/min/{1.73_m2} Normal >60 [facility] Comment on above: Result Comment: Non- GFR Calc Performed By: #### L 3890.6200, L100.0100, L3400.8000, L3100.0460, L3890.6100, L500.4050, L3410.2400 ####[facility] [address] [place], [address] Globulin (S) [Mass/Vol] 3.7 g/dL Normal 2.2-4.2 [facility] Comment on above: Performed By: #### L 3890.6200, L100.0100, L3400.8000, L3100.0460, L3890.6100, L500.4050, L3410.2400 ####[facility] [address] [place], [address] Glucose [Mass/Vol] 95 mg/dL Normal 74-106 [facility] Comment on above: Performed By: #### L 3890.6200, L100.0100, L3400.8000, L3100.0460, L3890.6100, L500.4050, L3410.2400 ####[facility] [address] [place], [address] Potassium [Moles/Vol] 3.2 mmol/L Low 3.5-5.1 [facility] Comment on above: Performed By: #### L 3890.6200, L100.0100, L3400.8000, L3100.0460, L3890.6100, L500.4050, L3410.2400 ####[facility] [address] [place], [place], [id number] Sodium [Moles/Vol] 138 mmol/L Normal 136-145 [facility] Comment on above: Performed By: #### L 3890.6200, L100.0100, L3400.8000, L3100.0460, L3890.6100, L500.4050, L3410.2400 ####[facility] [address] [place], [place], [phone] T PROT 8.0 g/dL Normal 6.4-8.2 [facility] Comment on above: Performed By: #### L 3890.6200, L100.0100, L3400.8000, L3100.0460, L3890.6100, L500.4050, L3410.2400 ####[facility] [address] [place], [address] Urea nitrogen [Mass/Vol] 7 mg/dL Normal 7-18 [facility] Comment on above: Performed By: #### L 3890.6200, L100.0100, L3400.8000, L3100.0460, L3890.6100, L500.4050, L3410.2400 ####[facility] [address] [place], [address] Endomysial IgA antibody assa yOrdered By: Josefina Sears on 05-03-2024 Endomysial IgA Antibody Negative Negative [facility] Eosinophil percentageOrdered By: Josefina Sears on 05-03-2024 Eosinophils/100 WBC (Bld) 2.4 % 0-5 [facility] Erythrocyte distribution wid th ratioOrdered By: Josefina Sears on 05-03-2024 Erythrocyte distribution width (RBC) [Ratio] 13.6 % 11.6-14.6 [facility] Erythrocyte distribution wid th standard deviationOrdered By: Josefina Sears on 05-03-2024 Erythrocyte distribution width (RBC) [Entitic vol] 41.6 fL 35.1-43.9 [facility] Erythrocyte distribution width (RBC) [Ratio] 41.6 fl 35.1-43.9 [facility] Estimated glomerular filtrat ion rate (GFR) AmericanOrdered By: Josefina Sears on 05-03-2024 Estimated GFR (MDRD) Amer 132 mL/min >60 [facility] Comment on above: GFR Calc Gastroenterology Visit Repor ton 05-03-2024 Gastroenterology Visit Report [facility] [address] [place] [address] OFFICE VISIT Date of Service: 05/03/24 MR#: [id number] Acct: [id number] Name: JAIR WARREN Rep #: [id number] : 1985 Provider: RENETTA ocampo Age/Sex: 38/M [facility] [place] Status: Signed Intake Vital Signs 05/03/24 15:05 Height 6 ft 2 in Weight: 204 lb 4 oz BMI 26.2 BP 148/102 H Respiration 16 Pulse 78 Pulse Oximetry (%) 98 Oxygen Delivery Method room air Intake Visit Reasons: Crohn's Chief Complaint: consult post admission Circulation Manager Required: No Accompanied by: Is patient in pain?: No Allergies No Known Allergies Allergy (Verified 05/03/24 15:09) Medications ???Medication ???Instructions ???Recorded ???Confirmed ???Type budesonide 3 mg 9 mg (3 x 3 mg) PO QDAY #90 ea 05/05/24 Rx capsule,delayed,extended release metronidazole 250 mg tablet 250 mg PO BID #30 tabs 05/05/24 Rx Nurse's Note: Has some abdominal discomfort. He has been having problems for 20 plus years but physicians only treated symptoms and didn't take the time to address the problem. [facility] Medical History (Updated 05/04/24 @ 09:07 by RENETTA Grewal) Recurrent right inguinal hernia Surgical History History of vasectomy ( 03/2018) Hernia Family History Father Arthritis Social History (Updated 04/15/18 @ 15:[address] Orion Zaragoza MD) Smoking Status: Never smoker alcohol intake: current alcohol intake frequency: a few times a month HPI HPI Chief Complaint: consult post admission Details: JAIR WARREN, is a 38 M who presents to the office today for LABS CBC: 03/29/2024 HGB 11.8 CMP: 03/24/2024 Albumin 2.8, transaminases normal CRP: 03/24/2024 high 14.9 Fecal Calprotectin: not on record 03/21/2024 Exploratory laparoscopy, lysis of dense adhesions, oversewing sigmoid enterotomy, ileocecal resection and side to side anastomosis. CT 03/21/2024 There is thickening of the appendix at 1.3 centimeters and periappendiceal fat stranding consistent with appendicitis. There is thickening of adjacent small bowel mucosa may be reactive enteritis. There is a 3.2 centimeter pelvic fluid collection and may represent free fluid. Developing abscess cannot be excluded. CT 03/24/2024 Enteric tube terminates in the gastric body. Patient is status post appendectomy with ileocecal resection and ileocolonic anastomosis, with mild inflammatory change and mild mural edema involving the ascending colon, nonspecific given recent postoperative state and suboptimally assessed without contrast. No organized collections or pneumatosis. Sigmoid colon is collapsed, though appears mildly edematous in the central abdomen (3:134). No large bowel dilation. Minimally dilated terminal ileum at 3.3 cm (3:119), with otherwise unremarkable small bowel. CT 03/27/2024 GI tract: NG/OG tube tip in the gastric body. Ileocolic anastomosis in the right lower quadrant. Redemonstrated wall thickening and inflammatory stranding adjacent to the anastomosis. No extraluminal contrast identified. Clustered loops of small bowel and the sigmoid colon near the anastomosis with mild wall thickening, likely reactive, as before. Mesentery/Peritoneum: Dense inflammatory stranding in the right lower quadrant in the anastomosis. No organized collection or extra luminal contrast. Surgical drains terminating in the pelvis. ____ - he is seen in the office today with his - intermittent flare ups of abdominal pain - cramping - states he was told he had IBS previously diagnosed at 18y/o - diarrhea - has tried food elimination in the past - cramping and diarrhea - flare ups that would last a week or more - during flare he would have pain/chills/ temp 99 - can have milk if he has lactaid - denies any known family history of IBD - denies any N/V - weight is stable - this has not ramila a struggle for him in the past - occasional HB - since discharge he has been taking IBU and Advil - none in the past few days - Early 2022 he had a large amount of blood loss with a bowel movement - 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 Normal [facility] Glomerular filtration rate ( GFR) estimationOrdered By: Josefina Sears on 05-03-2024 Estimated GFR (MDRD) Non-Af Amer 109 mL/min >60 [facility] Comment on above: Non- GFR Calc GFR/1.73 sq M.predicted among non-blacks MDRD (S/P/Bld) [Vol rate/Area] 109 mL/min/{1.73_m2} >60 [facility] Comment on above: Non- GFR Calc Glucose measurementOrdered B y: Josefina Sears on 05-03-2024 Glucose [Mass/Vol] 95 mg/dL 74-106 [facility] HBV core Ab Ql (S)Ordered By : Josefina Sears on 05-03-2024 Hepatitis B Core Total Antibody Negative Negative [facility] Comment on above: Performed at: [address] [id number] Director: Jae Jones PhD, Phone: [phone] HBV surface IgG Ql (S)Ordere d By: Josefina Sears on 05-03-2024 Hepatitis B Surface Antibody Reactive [facility] Comment on above: Non Reactive: Incons istent with immunity less than <10 mIU/mL Reactive: Consistent with immunity greater than or equal to 10 mIU/mL Hematocrit Auto (Bld) [Volum e fraction]Ordered By: Josefina Sears on 05-03-2024 Hematocrit (Bld) [Volume fraction] 41.6 % 40-54 [facility] Hemoglobin measurementOrdere d By: Josefina Sears on 05-03-2024 Hemoglobin (Bld) [Mass/Vol] 13.7 g/dL 13.0-16.5 [facility] Hepatitis B Surface Antibody on 05-03-2024 HEP B Surf Ab Reactive Normal [facility] Comment on above: Order Comment: Reaso n for Exam: Crohn's Result Comment: Non Reactive: Inconsistent with immunity less than <10 mIU/mL Reactive: Consistent with immunity greater than or equal to 10 mIU/mL Performed By: #### L 3890.6200, L100.0100, L3400.8000, L3100.0460, L3890.6100, L500.4050, L3410.2400 ####[facility] [address] [place], [place], [id number] Hepatitis B Surface Antigeno n 05-03-2024 HEP B Surf Ag Non-Reactive Normal Nonreactive [facility] Comment on above: Order Comment: Reaso n for Exam: Crohn's Performed By: #### L 3890.6200, L100.0100, L3400.8000, L3100.0460, L3890.6100, L500.4050, L3410.2400 ####[facility] [address] [place], [address] Hepatitis B surface antigen detectionOrdered By: Josefina Sears on 05-03-2024 Hepatitis B Surface Antigen Non-Reactive Nonreactive [facility] IgA [Mass/Vol]Ordered By: Leo Sears on 05-03-2024 Immunoglobulin A 148 mg/dL 90-386 [facility] Immature granulocytes/100 WB C Auto (Bld)Ordered By: Josefina Sears on 05-03-2024 Immature granulocytes/100 WBC (Bld) 0.300 % 0.0-0.9 [facility] Comment on above: IG% - Immature Granu locytes (promyelocytes, myelocytes and metamyelocytes) > 1% indicates that a LEFT SHIFT is Present. Laboratory - Chemistry and C hemistry - challengeOrdered By: Josefina Sears on 05-03-2024 AST [Catalytic activity/Vol] 22 U/L 15-37 [facility] Lymphocytes Auto (Unsp spec) [#/Vol]Ordered By: Josefina Sears on 05-03-2024 Lymphocytes (Bld) [#/Vol] 0.56 10*3/uL Low 0.83-4.51 [facility] Lymphocytes/100 WBC Auto (Un sp spec)Ordered By: Josefina Sears on 05-03-2024 Lymphocytes/100 WBC (Bld) 7.9 % Low 19-41 [facility] M. tuberculosis tuberculin s celeste IFN-g Ql (Bld)Ordered By: Josefina Sears on 05-03-2024 TB Test (QFT) Antigen 1 0 IU/mL . [facility] MCV (mean corpuscular volume ) determinationOrdered By: Josefina Sears on 05-03-2024 MCV (RBC) [Entitic vol] 83.7 fL 80-94 [facility] Mean corpuscular hemoglobin (MCH) determinationOrdered By: Josefina Sears on 05-03-2024 MCH (RBC) [Entitic mass] 27.6 pg 27.0-32.0 [facility] Mean corpuscular hemoglobin concentration (MCHC) determinationOrdered By: Josefina Sears on 05-03-2024 MCHC (RBC) [Mass/Vol] 32.9 g/dL 32-36 [facility] Mean platelet volume determi nationOrdered By: Josefina Sears on 05-03-2024 Platelet mean volume (Bld) [Entitic vol] 10.5 fL 6.2-12.0 [facility] Monocyte percentageOrdered B y: Josefina Sears on 05-03-2024 Monocytes/100 WBC (Bld) 6.7 % 0-10 [facility] Neutrophil percentageOrdered By: Josefina Sears on 05-03-2024 Neutrophils/100 WBC (Bld) 82.1 % High 47-70 [facility] Nucleated red blood cell per centageOrdered By: Josefina Sears on 05-03-2024 Nucleated RBC/100 WBC (Bld) [Ratio] 0 % 0-5 [facility] Platelet countOrdered By: Leo Sears on 05-03-2024 Platelets (Bld) [#/Vol] 234 10*3/uL 150-450 [facility] Potassium measurementOrdered By: Josefina Sears on 05-03-2024 Potassium [Moles/Vol] 3.2 mmol/L Low 3.5-5.1 [facility] Qualitative QuantiFERON-TB g old in tube testOrdered By: Josefina Sears on 05-03-2024 M. tuberculosis tuberculin stim IFN-g Ql (Bld) 0 IU/mL . [facility] Quantiferon-TB Gold Plus rob tOrdered By: Josefina Sears on 05-03-2024 TB Test (QFT) Comment . [facility] Comment on above: QuantiFERON-TB Gold Plus is a qualitative indirect test forM tuberculosis infection (including disease) and isintended for use in conjunction with risk assessment,radiography, and other medical and diagnostic evaluations.The QuantiFERON-TB Gold Plus result is determined bysubtracting the Nil value from either TB antigen (Ag)value. The Mitogen tube serves as a control for the test. TB Test (QFT) Antigen 2 0 IU/mL . [facility] TB Test (QFT) Mitogen > 10.00 IU/mL . [facility] TB Test (QFT) Nil 0.01 IU/mL . [facility] TB Test (QFT) Positive Criteria Negative Negative [facility] Comment on above: No response to M tub erculosis antigens detected.Infection with M tuberculosis is unlikely, but high riskindividuals should be considered for additional testing(ATS/IDSA/CDC Clinical Practice Guidelines, 2017). Thereference range is an Antigen minus Nil result of <0.35IU/mL.The specimen received for QuantiFERON testing was incubatedby the ordering institution. Specific procedures outlinedin our Directory of Services and in the package insert forthe QuantiFERON Gold (In Tube) test must be followed toenable for proper stimulation of cells for the productionof interferon gamma. Chemiluminescence immunoassaymethodology RBC Auto (Bld) [#/Vol]Ordere d By: Josefina Sears on 05-03-2024 RBC (Bld) [#/Vol] 4.97 10*6/uL 4.6-6.2 [facility] Serum anion gap measurementO rdered By: Josefina Sears on 05-03-2024 Anion gap [Moles/Vol] 5 mmol/L 5-15 [facility] Serum globulin measurementOr dered By: Josefina Sears on 05-03-2024 Globulin (S) [Mass/Vol] 3.7 g/dL 2.2-4.2 [facility] Serum hepatitis B virus core antibody detectionOrdered By: Josefina Sears on 05-03-2024 HBV core Ab Ql (S) Negative Negative [facility] Comment on above: Performed at: [address] [id number] Director: Jae Jones PhD, Phone: [phone] Serum hepatitis B virus surf mk antibody IgG detectionOrdered By: Josefina Sears on 05-03-2024 HBV surface IgG Ql (S) Reactive [facility] Comment on above: Non Reactive: Incons istent with immunity less than <10 mIU/mL Reactive: Consistent with immunity greater than or equal to 10 mIU/mL Serum or plasma IgA measurem ent (mass/volume)Ordered By: Josefina Sears on 05-03-2024 IgA [Mass/Vol] 148 mg/dL 90-386 [facility] Serum or plasma alanine garcia otransferase (ALT) measurementOrdered By: Josefina Sears on 05-03-2024 ALT [Catalytic activity/Vol] 51 U/L 16-61 [facility] Serum or plasma albumin jazmin urement (mass/volume)Ordered By: Josefina Sears on 05-03-2024 Albumin [Mass/Vol] 4.3 g/dL 3.2-5.0 [facility] Serum or plasma alkaline dar sphatase measurementOrdered By: Josefina Sears on 05-03-2024 ALP [Catalytic activity/Vol] 99 U/L 45-117 [facility] Serum or plasma calcium jazmin urement (mass/volume)Ordered By: Josefina Sears on 05-03-2024 Calcium [Mass/Vol] 9.7 mg/dL 8.5-10.1 [facility] Serum or plasma creatinine m easurement (mass/volume)Ordered By: Josefina Sears on 05-03-2024 Creatinine [Mass/Vol] 0.83 mg/dL 0.70-1.30 [facility] Comment on above: The validity of the calculated GFR & GFRAA in patients over 70 years has not been determined. Clinical correlation is essential. Serum or plasma urea nitroge n measurement (mass/volume)Ordered By: Josefina Sears on 05-03-2024 Urea nitrogen [Mass/Vol] 7 mg/dL 7-18 [facility] Serum tissue transglutaminas e (tTG) IgA antibody assay (units/volume)Ordered By: Josefina Sears on 05-03-2024 tTG IgA Qn (S) <2 U/mL 0-3 [facility] Comment on above: Negative 0 - 3 Weak Positive 4 - 10 Positive >10 Tissue Transglutaminase (tTG) has been identified as the endomysial antigen. Studies have demonstr- ated that endomysial IgA antibodies have over 99% specificity for gluten sensitive enteropathy. Sodium levelOrdered By: Chantel Sears on 05-03-2024 Sodium [Moles/Vol] 138 mmol/L 136-145 [facility] Total proteinOrdered By: Rebekah Sears on 05-03-2024 Protein [Mass/Vol] 8.0 g/dL 6.4-8.2 [facility] White blood cell (WBC) count Ordered By: Josefina Sears on 05-03-2024 WBC (Bld) [#/Vol] 7.1 10*3/uL 4.4-11.0 [facility] tTG IgA Qn (S)Ordered By: Leo Sears on 05-03-2024 Tissue Transglutaminase IgA Ab <2 U/mL 0-3 [facility] Comment on above: Negative 0 - 3 Weak Positive 4 - 10 Positive >10 Tissue Transglutaminase (tTG) has been identified as the endomysial antigen. Studies have demonstr- ated that endomysial IgA antibodies have over 99% specificity for gluten sensitive enteropathy. OPERATIVE PROCEDURESon 04-02 OPERATIVE PROCEDURES [facility] OPERATIVE REPORT NAME ACCOUNT SEX AGE ADMIT DISCHARGE PT MED. RECORD# NUMBER DATE DATE TYPE JAIR WARREN [id number] M 38 03/21/24 Nirmal HAMEED [id number] ROOM: [facility] DATE OF : 1985 DICTATING PHYSICIAN: Jennifer Warren DATE OF SURGERY: March 21, 2024 SURGEON: Jennifer Warren MD GAUGE MAKER: DINAH Yoder ANESTHESIOLOGIST: Sanjuanita Ayala CRNA/Denver Haile CRNA ANESTHETIC: PREOPERATIVE DIAGNOSIS: POSTOPERATIVE DIAGNOSES: 1. Abdominal pain. 2. Appendicitis with perforation and peritonitis. 3. Large right lower quadrant phlegmon at the ileocecal area. 4. Dense adhesions. 5. Diverticulosis. 6. Diverticulitis. 7. Colonic polyps. 8. Sigmoid perforation. OPERATION PERFORMED: Exploratory laparoscopy, exploratory laparotomy, lysis of dense adhesions, oversewing sigmoid enterotomy, ileocecal resection, and [id number] anastomosis. COMPLICATIONS: ESTIMATED BLOOD LOSS: 75 mL. DRAIN: #10 Erik-Roy to Hemovac suction (2), 1/4 inch fenestrated Perham drain to incision site (2). Johnson catheter to gravity. Nasogastric tube to suction. FLUIDS GIVEN: 2500 mL of crystalloid. SPECIMEN: Ileocecum to Pathology. Page 1 of 4 JAIR WARREN Operative Report JAIR WARREN : 1985 DISPOSITION: Stable to recovery. INDICATIONS: Jair Warren is a 38-year-old gentleman who came to the emergency room for evaluation of pain, which had worsened recently. He recalls a history of 20 years of abdominal pain, which had worsened in the last 3 weeks. It was accompanied by diarrhea, GI bleeding in the past, and the pain had worsened since Thursday. He came to the emergency room with worsening pain more in the low, mid, and right lower quadrant abdomen. He had loose stools. He was found to have a marked leukocytosis with a left shift on differential, and in addition CT showed what appeared to be appendicitis, possible abscess formation (see full details on written report). DESCRIPTION OF OPERATION: After informed consent, intravenous fluids, and antibiotics, he was brought to the operating room and placed on the table in supine position with adequate padding at pressure points. He was given anesthesia, prepped and draped in the usual sterile fashion. The abdomen was carefully palpated and locally anesthetized with approximately 20 mL of 0.25% Marcaine with epinephrine at the trocar sites. The infraumbilical trocar was placed and the suprapubic trocar with good visualization. The left lower quadrant trocar was placed with good visualization, and the abdomen gently insufflated. The patient was placed in mild Trendelenburg, rotated to the left, and there was some cloudy fluid encountered, and there was marked edema, erythema, and induration of both the large bowel and small bowel. There were very dense adhesions, which were carefully and tediously dissected in a prolonged fashion, but it became clear that this was unable to be adequately and safely done laparoscopically. Therefore, the trocars were removed, and the patient was converted to a midline incision from the suprapubic to the epigastric area. The initial incision was not that large, but it required multiple lengthening to provide adequate exposure. Careful inspection of the abdomen showed serosanguineous fluid and the entire abdomen was copiously irrigated with antibiotic solution. Then using careful dissection, dissection was carried down to the right lower quadrant. There were dense adhesions, and the distal small bowel was curled up around the vermiform appendix and around the cecum extremely densely, and dissection showed leakage of purulent material and fecal matter. This bowel was also stuck to the sigmoid, and careful dissection showed a leak, which appeared to be where it had adhered to a diverticulum. Through this defect, there appeared to be a small polyp visible. This area was copiously irrigated with antibiotic solution, and then prolonged and tedious dissection and mobilization of the ileocecal area was carried out, but the vermiform appendix could not be safely dissected free because it appeared the large bowel and small bowel both were extremely edematous, indurated, discolored, and inflamed. Because of the patient's long history, there was concern for possible inflammatory bowel disease as well, and of course malignancy must also be ruled out. After prolonged and tedious dissection, eventually the proximal ascending colon, cecum, and distal small bowel were mobilized. The vascular structures were cross-clamped, divided, and then doubly ligated with suture ligatures of 2-0 Vicryl and 2-0 silk. There was good hemostasis. The distal small bowel was carefully examined, and care taken to avoid some of the extremely edematous and indurated small bowel. A healthy portion was mobilized. This was divided with the MIROSLAVA Page 2 of 4 JAIR WARREN Operat (more content not included)... Normal [facility] Basic metabolic 2000 panelon 03-29-2024 Anion gap [Moles/Vol] 11 mmol/L Normal 8-15 [facility] Comment on above: Order Comment: Speci men Type: BLOOD SPECIMENOrdering Facility: [facility] Address: [address] [place] [address] Performed By: #### 2 777-1, , ####[facility] [id number] [place] [address] [place] Calcium [Mass/Vol] 9.6 mg/dL Normal 8.5-10.2 [facility] Comment on above: Order Comment: Speci men Type: BLOOD SPECIMENOrdering Facility: [facility] Address: [address] [id number] Performed By: #### 2 777-1, , ####[facility] [id number] [place] [id number] [place] Chloride [Moles/Vol] 101 mmol/L Normal 98-107 [facility] Comment on above: Order Comment: Speci men Type: BLOOD SPECIMENOrdering Facility: [facility] Address: [address] [place] [address] Performed By: #### 2 777-1, , ####[facility] LABIA [id number] [address] [address] [place] CO2 [Moles/Vol] 26 mmol/L Normal 22-30 [facility] Comment on above: Order Comment: Speci men Type: BLOOD SPECIMENOrdering Facility: [facility] Address: [address] [place] [address] Performed By: #### 2 777-1, , ####[facility] LABIA [id number] [address] [address] [place] Creatinine [Mass/Vol] 0.91 mg/dL Normal 0.73-1.22 [facility] Comment on above: Order Comment: Speci men Type: BLOOD SPECIMENOrdering Facility: [facility] Address: [address] [place] [address] Performed By: #### 2 777-1, , ####[facility] [id number] [place] [address] [place] Creatinine and Glomerular filtration rate.predicted panel (S/P/Bld) 111 mL/min/1.73m??? Normal >=60 [facility] Comment on above: Order Comment: Speci men Type: BLOOD SPECIMENOrdering Facility: [facility] Address: [address] [place] [address] Result Comment: Codie mated Glomerular Filtration Rate (eGFR) is calculated using the 2020 CKD-EPI creatinine equation. This equation utilizes serum creatinine, sex, and age as parameters. The creatinine assay has traceable calibration to isotope dilution-mass spectrometry. Refer to KDIGO guidelines for clinical interpretation. In patients with unstable renal function, e.g. those with acute kidney injury, the eGFR may not accurately reflect actual GFR. Performed By: #### 2 777-1, , ####[facility] LABIA [id number] [place] [id number] [place] Glucose [Mass/Vol] 100 mg/dL High 74-99 [facility] Comment on above: Order Comment: Speci men Type: BLOOD SPECIMENOrdering Facility: [facility] Address: [address] [place] [address] Result Comment: The [place] [employer] (ADA) provides guidance for cutoff values for fasting glucose and random glucose. The ADA defines fasting as no caloric intake for at least 8 hours. Fasting plasma glucose results between 100 to 125 mg/dL indicate increased risk for diabetes (prediabetes). Fasting plasma glucose results greater than or equal to 126 mg/dL meet the criteria for diagnosis of diabetes. In the absence of unequivocal hyperglycemia, results should be confirmed by repeat testing. In a patient with classic symptoms of hyperglycemia or hyperglycemic crisis, random plasma glucose results greater than or equal to 200 mg/dL meet the criteria for diagnosis of diabetes. Reference: Standards of Medical Care in Diabetes 2016, [place] [employer]. Diabetes Care. 2016.39(Suppl 1). Performed By: #### 2 777-1, , ####[facility] [id number] [place] [address] [place] Potassium [Moles/Vol] 3.9 mmol/L Normal 3.7-5.1 [facility] Comment on above: Order Comment: Mohiti men Type: BLOOD SPECIMENOrdering Facility: [facility] Address: [address] [place] [address] Performed By: #### 2 777-1, , ####[facility]CL[facility] [id number] [place] [address] [place] Sodium [Moles/Vol] 138 mmol/L Normal 136-144 [facility] Comment on above: Order Comment: Speci men Type: BLOOD SPECIMENOrdering Facility: [facility] Address: [address] [place] [address] Performed By: #### 2 777-1, , 00697-8 ####[facility] [id number] [place] [address] [place] Urea nitrogen [Mass/Vol] 9 mg/dL Normal - [facility] Comment on above: Order Comment: Speci men Type: BLOOD SPECIMENOrdering Facility: [facility] Address: [address] [place] [address] Performed By: #### 2 777-1, 09771-8, 92827-7 ####[facility] [id number] [place] [address] [place] CBC panel Auto (Bld)on 03-29 Erythrocyte distribution width (RBC) [Ratio] 12.9 % Normal 11.5-15.0 [facility] Comment on above: Order Comment: Speci men Type: BLOOD SPECIMENOrdering Facility: [facility] Address: [address] [place] [address] Performed By: #### 5 8410-2 ####[facility] LABIA [id number] [place] [address] [place] Hematocrit (Bld) [Volume fraction] 37.0 % Low 39.0-51.0 [facility] Comment on above: Order Comment: Speci men Type: BLOOD SPECIMENOrdering Facility: [facility] Address: [address] [place] [address] Performed By: #### 5 8410-2 ####[facility] LABCL[facility] [id number] [place] [address] [place] Hemoglobin (Bld) [Mass/Vol] 11.8 g/dL Low 13.0-17.0 [facility] Comment on above: Order Comment: Speci men Type: BLOOD SPECIMENOrdering Facility: [facility] Address: [address] [place] [address] Performed By: #### 5 8410-2 ####[facility] [id number] [place] [address] [place] MCH (RBC) [Entitic mass] 26.9 pg Normal 26.0-34.0 [facility] Comment on above: Order Comment: Speci men Type: BLOOD SPECIMENOrdering Facility: [facility] Address: [address] [place] [address] Performed By: #### 5 8410-2 ####[facility] LABIA [id number] [place] [address] [place] MCHC (RBC) [Mass/Vol] 31.9 g/dL Normal 30.5-36.0 [facility] Comment on above: Order Comment: Speci men Type: BLOOD SPECIMENOrdering Facility: [facility] Address: [address] [place] [address] Performed By: #### 5 8410-2 ####[facility] LABIA [id number] [place] [address] [place] MCV (RBC) [Entitic vol] 84.3 fL Normal 80.0-100.0 [facility] Comment on above: Order Comment: Speci men Type: BLOOD SPECIMENOrdering Facility: [facility] Address: [address] [place] [address] Performed By: #### 5 8410-2 ####[facility] LABIA [id number] [place] [address] [place] Nucleated RBC (Bld) [#/Vol] 10*3/uL Normal <0.01 [facility] Comment on above: Order Comment: Speci men Type: BLOOD SPECIMENOrdering Facility: [facility] Address: [address] [place] [address] Performed By: #### 5 8410-2 ####[facility] LABIA [id number] [place] [address] [place] Platelet mean volume (Bld) [Entitic vol] 10.0 fL Normal 9.0-12.7 [facility] Comment on above: Order Comment: Speci men Type: BLOOD SPECIMENOrdering Facility: [facility] Address: [address] [place] [address] Performed By: #### 5 8410-2 ####[facility] LABCL[facility] [id number] [place] [address] [place] Platelets (Bld) [#/Vol] 304 10*3/uL Normal 150-400 [facility] Comment on above: Order Comment: Speci men Type: BLOOD SPECIMENOrdering Facility: [facility] Address: [address] [place] [address] Performed By: #### 5 8410-2 ####[facility] LABIA [id number] [place] [address] [place] RBC (Bld) [#/Vol] 4.39 10*6/uL Normal 4.20-6.00 [facility] Comment on above: Order Comment: Speci men Type: BLOOD SPECIMENOrdering Facility: [facility] Address: [address] [place] [address] Performed By: #### 5 8410-2 ####[facility] LABIA [id number] [place] [address] [place] WBC (Bld) [#/Vol] 9.40 10*3/uL Normal 3.70-11.00 [facility] Comment on above: Order Comment: Speci men Type: BLOOD SPECIMENOrdering Facility: [facility] Address: [address] [place] [address] Performed By: #### 5 8410-2 ####[facility] LABIA [id number] [place] [id number] [place] CNDSon 03-29-2024 CNDS HNO ID: [id number] Author: LLOYD MYERS MD Service: Colorectal Author Type: Nurse Practitioner Type: Discharge Summary Filed: 03/31/2024 12:43 Note Text: -------- Attestation signed by Lloyd Myers MD at 03/31/2024 12:43 PM COLON AND RECTAL SURGERY ATTENDING I evaluated the patient and personally participated in the rebollar components. I agree with the resident/fellow/PA's findings and plan as documented and have discussed the case and management of the patient's care with the resident/fellow and PA. Plan of care discussed with: Provider, RN, Patient. Lloyd Myers MD March 31, 2024 12:43 PM -------- DISCHARGE SUMMARY PATIENT NAME: Jair Warren ADMISSION DATE: 03/23/2024 DISCHARGE DATE: 03/29/2024 Attending Physician: Lloyd Myers MD Code Status: Full Code Highest Readmission Risk Score: 13 The 30 day readmissions risk score is derived from an internally validated risk model which evaluates patient level characteristics, utilization history, medication orders and lab results up until the day of discharge. Patients with a score of 40 or above are considered highest risk for readmission. Specific patient level drivers will be listed at the bottom of the summary. Principal Diagnosis: second opinion regarding post-appendectomy management Principal Problem: Abdominal pain (POA: Yes) Active Problems: Ileal stenosis (HCC) (POA: Unknown) Appendicitis (POA: Yes) Resolved Problems: * No resolved hospital problems. * Reason for Hospitalization: Jair Warren is a 38 year old male presenting from OSH after undergoing open appendectomy s/p appendiceal rupture. he has a significant medical history of chronic diarrhea, spanning 20 years. Operations During Hospitalization: None Procedures During Hospitalization: 03/24/2024: CT abdomen/pelvis Hospital Course: Jair Warren came to the hospital from an OSH after open appendectomy due to concerns about the post-operative care. He experienced ruptured appendicitis requiring urgent surgery on 03/21 in which he underwent open appendectomy. Per patient and , he was not progressive post-operatively as expected. On arrival to [facility], he was admitted to the [facility], NGT continued to suction, placed on bowel rest and continued on antibiotics. CT scan obtained 03/24 without evidence of perforation, abscess or fluid collection. After review of the surgery report from the OSH, the medical history and CT images, there is high suspicion for Crohn's disease. Surgical pathology is still pending. After return of bowel function on 03/27, his NGT was removed and he was started on CLD. His diet was able to be advanced on 03/29. The surgical drains (2) were removed on 03/29. Once his pain was controlled with PO meds, he was tolerating PO intake and having appropriate bowel function, he was deemed fit for discharge. Pain was controlled with oral and IV medication per ERAS protocol and his intake and output was closely monitored. Diet was advanced as tolerated. Johnson catheter was removed on 03/23 and he voided independently. DVT prophylaxis was managed by Lovenox 40 mg daily and intermittent compression stockings. His electrolytes were monitored with daily labs and replaced as needed. Once the patient's pain was controlled with oral medication, GI soft diet was tolerated, and demonstrated appropriate bowel function, he was deemed fit for discharge. The patient is asked to please follow up with Cass Sparks PA-C as scheduled. Stoma Present? No Discharged with Tubes/Drains/Appliances? No Follow up imaging ordered? Not warranted What VTE chemoprophylaxis given for majority of inpatient stay? Enoxaparin What VTE chemoprophylaxis discharged on and for how long? None NA Transitions of Care Critical Issues: SPECIALIST FOLLOW-UP: GI LABS AND PROCEDURES PENDING AT DISCHARGE: Pathology Results (surgical pathology) Consulting Teams During Hospitalization: CM, nutrition Treatment Team: Attending Provider: Lloyd Myers MD Primary Service: RODGER OBREGON Patient Condition @ Discharge: Stable Discharge Disposition: Home with Self Care Information Provided to Patient: Discharge instructions Diet: Low soft-fiber diet: No fresh fruits, whole grains, foods difficult to digest, or vegetables (unless they are well-cooked) Activity: No heavy lifting, pushing or pulling greater than 10 pounds including unloading the shear tender, moving wet laundry and vacuuming for 6 weeks No driving for 2 weeks. Take someone with you the first time you drive. No driving while on narcotics Stairs are allowed and walking is encouraged Wound/Surgical Site Care: Allow steri strips to fall off on their own. If they have not fallen off in 7-10 days, ok to remove in the shower. and Terrell may be removed (more content not included)... Normal [facility] Magnesium [facility] 03-29 Magnesium [Mass/Vol] 2.4 mg/dL High 1.7-2.3 [facility] Comment on above: Order Comment: Speci men Type: BLOOD SPECIMENOrdering Facility: [facility] Address: [address] [place] [address] Performed By: #### 2 777-1, , 22028-0 ####[facility] LABIA [id number] [place] [address] [place] [facility] Phosphate [Mass/Vol] 3.3 mg/dL Normal 2.7-4.8 [facility] Comment on above: Order Comment: Speci men Type: BLOOD SPECIMENOrdering Facility: [facility] Address: [address] [place] [address] Performed By: #### 2 777-1, , 40378-0 ####[facility] LABCLIA [id number] [place] [address] [place] Basic metabolic 2000 panelon 03-28-2024 Anion gap [Moles/Vol] 16 mmol/L High 8-15 [facility] Comment on above: Order Comment: Speci men Type: BLOOD SPECIMENOrdering Facility: [facility] Address: [address] [place] [address] Performed By: #### 1 9123-9, 48524-9, 2777-1 ####[facility] LABCLIA [id number] [place] [address] [place] Calcium [Mass/Vol] 9.5 mg/dL Normal 8.5-10.2 [facility] Comment on above: Order Comment: Speci men Type: BLOOD SPECIMENOrdering Facility: [facility] Address: [address] [place] [address] Performed By: #### 1 9123-9, 18260-8, 2776- ####[facility] LABCLIA [id number] [place] [address] [place] Chloride [Moles/Vol] 102 mmol/L Normal 98-107 [facility] Comment on above: Order Comment: Speci men Type: BLOOD SPECIMENOrdering Facility: [facility] Address: [address] [place] [address] Performed By: #### 1 9123-9, 39605-5, 2776-04 ####[facility] LABCLIA [id number] [place] [address] [place] CO2 [Moles/Vol] 20 mmol/L Low 22-30 [facility] Comment on above: Order Comment: Speci men Type: BLOOD SPECIMENOrdering Facility: [facility] Address: [address] [place] [address] Performed By: #### 1 9123-9, 13511-5, 2776-04 ####[facility] LABCLIA [id number] [place] [address] [place] Creatinine [Mass/Vol] 0.81 mg/dL Normal 0.73-1.22 [facility] Comment on above: Order Comment: Speci men Type: BLOOD SPECIMENOrdering Facility: [facility] Address: [address] [place] [address] Performed By: #### 1 9123-9, 40017-8, 2776-04 ####[facility] LABCLIA [id number] [place] [id number] [place] Creatinine and Glomerular filtration rate.predicted panel (S/P/Bld) 116 mL/min/1.73m??? Normal >=60 [facility] Comment on above: Order Comment: Klaus colindres Type: BLOOD SPECIMENOrdering Facility: [facility] Address: [address] [place] [address] Result Comment: Codie mated Glomerular Filtration Rate (eGFR) is calculated using the 2020 CKD-EPI creatinine equation. This equation utilizes serum creatinine, sex, and age as parameters. The creatinine assay has traceable calibration to isotope dilution-mass spectrometry. Refer to KDIGO guidelines for clinical interpretation. In patients with unstable renal function, e.g. those with acute kidney injury, the eGFR may not accurately reflect actual GFR. Performed By: #### 1 9123-9, 77178-0, 277- ####[facility] LABIA [id number] [place] [address] [place] Glucose [Mass/Vol] 92 mg/dL Normal 74-99 [facility] Comment on above: Order Comment: Klaus colindres Type: BLOOD SPECIMENOrdering Facility: [facility] Address: [address] [place] [address] Result Comment: The [place] Diabetes [employer] (ADA) provides guidance for cutoff values for fasting glucose and random glucose. The ADA defines fasting as no caloric intake for at least 8 hours. Fasting plasma glucose results between 100 to 125 mg/dL indicate increased risk for diabetes (prediabetes). Fasting plasma glucose results greater than or equal to 126 mg/dL meet the criteria for diagnosis of diabetes. In the absence of unequivocal hyperglycemia, results should be confirmed by repeat testing. In a patient with classic symptoms of hyperglycemia or hyperglycemic crisis, random plasma glucose results greater than or equal to 200 mg/dL meet the criteria for diagnosis of diabetes. Reference: Standards of Medical Care in Diabetes 2016, [place] [employer]. Diabetes Care. 2016.39(Suppl 1). Performed By: #### 1 9123-9, 29839-5, 2776- ####[facility] LABIA [id number] [place] [address] [place] Potassium [Moles/Vol] 3.7 mmol/L Normal 3.7-5.1 [facility] Comment on above: Order Comment: Speci men Type: BLOOD SPECIMENOrdering Facility: [facility] Address: [address] [place] [address] Performed By: #### 1 9123-9, 31820-2, 2777- ####[facility] LABCLIA [id number] [place] [address] [place] Sodium [Moles/Vol] 138 mmol/L Normal 136-144 [facility] Comment on above: Order Comment: Speci men Type: BLOOD SPECIMENOrdering Facility: [facility] Address: [address] [place] [address] Performed By: #### 1 9123-9, 99333-3, 277- ####[facility] LABCLIA [id number] [place] [address] [place] Urea nitrogen [Mass/Vol] 10 mg/dL Normal 9-24 [facility] Comment on above: Order Comment: Speci men Type: BLOOD SPECIMENOrdering Facility: [facility] Address: [address] [place] [address] Performed By: #### 1 9123-9, 99500-5, 27710-04 ####[facility] LABIA [id number] [place] [address] [place] CBC panel Auto (Bld)on 03-28 Erythrocyte distribution width (RBC) [Ratio] 12.7 % Normal 11.5-15.0 [facility] Comment on above: Order Comment: Speci men Type: BLOOD SPECIMENOrdering Facility: [facility] Address: [address] [place] [address] Performed By: #### 5 8410-2 ####[facility] LABIA [id number] [place] [address] [place] Hematocrit (Bld) [Volume fraction] 37.0 % Low 39.0-51.0 [facility] Comment on above: Order Comment: Speci men Type: BLOOD SPECIMENOrdering Facility: [facility] Address: [address] [place] [address] Performed By: #### 5 8410-2 ####[facility] LABCLIA [id number] [place] [address] [place] Hemoglobin (Bld) [Mass/Vol] 12.2 g/dL Low 13.0-17.0 [facility] Comment on above: Order Comment: Speci men Type: BLOOD SPECIMENOrdering Facility: [facility] Address: [address] [place] [address] Performed By: #### 5 8410-2 ####[facility] LABCLIA [id number] [place] [address] [place] MCH (RBC) [Entitic mass] 27.6 pg Normal 26.0-34.0 [facility] Comment on above: Order Comment: Speci men Type: BLOOD SPECIMENOrdering Facility: [facility] Address: [address] [place] [address] Performed By: #### 5 8410-2 ####[facility] LABIA [id number] [place] [address] [place] MCHC (RBC) [Mass/Vol] 33.0 g/dL Normal 30.5-36.0 [facility] Comment on above: Order Comment: Speci men Type: BLOOD SPECIMENOrdering Facility: [facility] Address: [address] [place] [address] Performed By: #### 5 8410-2 ####[facility] LABCLIA [id number] [place] [address] [place] MCV (RBC) [Entitic vol] 83.7 fL Normal 80.0-100.0 [facility] Comment on above: Order Comment: Speci men Type: BLOOD SPECIMENOrdering Facility: [facility] Address: [address] [place] [address] Performed By: #### 5 8410-2 ####[facility] LABCLIA [id number] [place] [address] [place] Nucleated RBC (Bld) [#/Vol] 10*3/uL Normal <0.01 [facility] Comment on above: Order Comment: Speci men Type: BLOOD SPECIMENOrdering Facility: [facility] Address: [address] [place] [address] Performed By: #### 5 8410-2 ####[facility] [id number] [place] [address] [place] Platelet mean volume (Bld) [Entitic vol] 9.9 fL Normal 9.0-12.7 [facility] Comment on above: Order Comment: Speci men Type: BLOOD SPECIMENOrdering Facility: [facility] Address: [address] [place] [address] Performed By: #### 5 8410-2 ####[facility] [id number] [place] [address] [place] Platelets (Bld) [#/Vol] 324 10*3/uL Normal 150-400 [facility] Comment on above: Order Comment: Speci men Type: BLOOD SPECIMENOrdering Facility: [facility] Address: [address] [place] [address] Performed By: #### 5 8410-2 ####[facility] [id number] [place] [address] [place] RBC (Bld) [#/Vol] 4.42 10*6/uL Normal 4.20-6.00 [facility] Comment on above: Order Comment: Speci men Type: BLOOD SPECIMENOrdering Facility: [facility] Address: [address] [place] [address] Performed By: #### 5 8410-2 ####[facility] LABIA [id number] [place] [address] [place] WBC (Bld) [#/Vol] 9.80 10*3/uL Normal 3.70-11.00 [facility] Comment on above: Order Comment: Speci men Type: BLOOD SPECIMENOrdering Facility: [facility] Address: [address] [place] [address] Performed By: #### 5 8410-2 ####[facility] LABCLIA [id number] [place] [address] [place] Magnesium [facility] 03-28 Magnesium [Mass/Vol] 2.4 mg/dL High 1.7-2.3 [facility] Comment on above: Order Comment: Speci men Type: BLOOD SPECIMENOrdering Facility: [facility] Address: [address] [place] [address] Performed By: #### 1 9123-9, 88093-3, 2777-1 ####[facility] LABCLIA [id number] [place] [address] [place] Phosphate SerPl-mCncon 03-28 Phosphate [Mass/Vol] 3.1 mg/dL Normal 2.7-4.8 [facility] Comment on above: Order Comment: Speci men Type: BLOOD SPECIMENOrdering Facility: [facility] Address: [address] [place] [address] Performed By: #### 1 9123-9, 68260-0, 2777-1 ####[facility] LABCLIA [id number] [place] [address] [place] Basic metabolic 2000 panelon 03-27-2024 Anion gap [Moles/Vol] 14 mmol/L Normal 8-15 [facility] Comment on above: Order Comment: Speci men Type: BLOOD SPECIMENOrdering Facility: [facility] Address: [address] [place] [address] Performed By: #### 2 4321-2, 91840-6, 2777-1 ####[facility] LABCLIA [id number] [place] [address] [place] Calcium [Mass/Vol] 9.2 mg/dL Normal 8.5-10.2 [facility] Comment on above: Order Comment: Speci men Type: BLOOD SPECIMENOrdering Facility: [facility] Address: [address] [place] [address] Performed By: #### 2 4321-2, , 2776-04 ####[facility] LABCLIA [id number] [place] [address] [place] Chloride [Moles/Vol] 101 mmol/L Normal 98-107 [facility] Comment on above: Order Comment: Speci men Type: BLOOD SPECIMENOrdering Facility: [facility] Address: [address] [place] [address] Performed By: #### 2 4321-2, , 2776-04 ####[facility] LABCLIA [id number] [place] [address] [place] CO2 [Moles/Vol] 22 mmol/L Normal 22-30 [facility] Comment on above: Order Comment: Speci men Type: BLOOD SPECIMENOrdering Facility: [facility] Address: [address] [place] [address] Performed By: #### 2 4321-2, , 2776-04 ####[facility] LABCLIA [id number] [place] [address] [place] Creatinine [Mass/Vol] 0.84 mg/dL Normal 0.73-1.22 [facility] Comment on above: Order Comment: Speci men Type: BLOOD SPECIMENOrdering Facility: [facility] Address: [address] [place] [address] Performed By: #### 2 4321-2, , 2776-04 ####[facility] LABCLIA [id number] [place] [address] [place] Creatinine and Glomerular filtration rate.predicted panel (S/P/Bld) 114 mL/min/1.73m??? Normal >=60 [facility] Comment on above: Order Comment: Klaus colindres Type: BLOOD SPECIMENOrdering Facility: [facility] Address: [address] [place] [address] Result Comment: Codie mated Glomerular Filtration Rate (eGFR) is calculated using the 2020 CKD-EPI creatinine equation. This equation utilizes serum creatinine, sex, and age as parameters. The creatinine assay has traceable calibration to isotope dilution-mass spectrometry. Refer to KDIGO guidelines for clinical interpretation. In patients with unstable renal function, e.g. those with acute kidney injury, the eGFR may not accurately reflect actual GFR. Performed By: #### 2 4321-2, 79988-5, 2776- ####[facility] LABIA [id number] [place] [address] [place] Glucose [Mass/Vol] 89 mg/dL Normal 74-99 [facility] Comment on above: Order Comment: Klaus colindres Type: BLOOD SPECIMENOrdering Facility: [facility] Address: [address] [place] [address] Result Comment: The [place] Diabetes [employer] (ADA) provides guidance for cutoff values for fasting glucose and random glucose. The ADA defines fasting as no caloric intake for at least 8 hours. Fasting plasma glucose results between 100 to 125 mg/dL indicate increased risk for diabetes (prediabetes). Fasting plasma glucose results greater than or equal to 126 mg/dL meet the criteria for diagnosis of diabetes. In the absence of unequivocal hyperglycemia, results should be confirmed by repeat testing. In a patient with classic symptoms of hyperglycemia or hyperglycemic crisis, random plasma glucose results greater than or equal to 200 mg/dL meet the criteria for diagnosis of diabetes. Reference: Standards of Medical Care in Diabetes 2016, [place] [employer]. Diabetes Care. 2016.39(Suppl 1). Performed By: #### 2 4321-2, 02454-5, 2776- ####[facility] LABIA [id number] [address] [address] [place] Potassium [Moles/Vol] 3.8 mmol/L Normal 3.7-5.1 [facility] Comment on above: Order Comment: Speci men Type: BLOOD SPECIMENOrdering Facility: [facility] Address: [address] [place] [address] Performed By: #### 2 4321-2, , 2776-04 ####[facility] LABCLIA [id number] [address] [address] [place] Sodium [Moles/Vol] 137 mmol/L Normal 136-144 [facility] Comment on above: Order Comment: Speci men Type: BLOOD SPECIMENOrdering Facility: [facility] Address: [address] [place] [address] Performed By: #### 2 4321-2, , 2776-04 ####[facility] LABCLIA [id number] [place] [address] [place] Urea nitrogen [Mass/Vol] 11 mg/dL Normal 9-24 [facility] Comment on above: Order Comment: Speci men Type: BLOOD SPECIMENOrdering Facility: [facility] Address: [address] [place] [address] Performed By: #### 2 4321-2, , 2776-04 ####[facility] LABIA [id number] [place] [address] [place] CBC panel Auto (Bld)on 03-27 Erythrocyte distribution width (RBC) [Ratio] 12.4 % Normal 11.5-15.0 [facility] Comment on above: Order Comment: Speci men Type: BLOOD SPECIMENOrdering Facility: [facility] Address: [address] [place] [address] Performed By: #### 5 8410-2 ####[facility] LABCLIA [id number] [address] [address] [place] Hematocrit (Bld) [Volume fraction] 34.1 % Low 39.0-51.0 [facility] Comment on above: Order Comment: Speci men Type: BLOOD SPECIMENOrdering Facility: [facility] Address: [address] [place] [address] Performed By: #### 5 8410-2 ####[facility] LABIA [id number] [place] [address] [place] Hemoglobin (Bld) [Mass/Vol] 11.5 g/dL Low 13.0-17.0 [facility] Comment on above: Order Comment: Speci men Type: BLOOD SPECIMENOrdering Facility: [facility] Address: [address] [place] [address] Performed By: #### 5 8410-2 ####[facility] LABIA [id number] [place] [address] [place] MCH (RBC) [Entitic mass] 28.4 pg Normal 26.0-34.0 [facility] Comment on above: Order Comment: Speci men Type: BLOOD SPECIMENOrdering Facility: [facility] Address: [address] [place] [address] Performed By: #### 5 8410-2 ####[facility] LABIA [id number] [place] [address] [place] MCHC (RBC) [Mass/Vol] 33.7 g/dL Normal 30.5-36.0 [facility] Comment on above: Order Comment: Speci men Type: BLOOD SPECIMENOrdering Facility: [facility] Address: [address] [place] [address] Performed By: #### 5 8410-2 ####[facility] LABIA [id number] [place] [address] [place] MCV (RBC) [Entitic vol] 84.2 fL Normal 80.0-100.0 [facility] Comment on above: Order Comment: Speci men Type: BLOOD SPECIMENOrdering Facility: [facility] Address: [address] [place] [address] Performed By: #### 5 8410-2 ####[facility] LABCLIA [id number] [place] [address] [place] Nucleated RBC (Bld) [#/Vol] 10*3/uL Normal <0.01 [facility] Comment on above: Order Comment: Speci men Type: BLOOD SPECIMENOrdering Facility: [facility] Address: [address] [place] [address] Performed By: #### 5 8410-2 ####[facility] LABIA [id number] [place] [address] [place] Platelet mean volume (Bld) [Entitic vol] 9.9 fL Normal 9.0-12.7 [facility] Comment on above: Order Comment: Speci men Type: BLOOD SPECIMENOrdering Facility: [facility] Address: [address] [place] [address] Performed By: #### 5 8410-2 ####[facility] LABIA [id number] [place] [address] [place] Platelets (Bld) [#/Vol] 274 10*3/uL Normal 150-400 [facility] Comment on above: Order Comment: Speci men Type: BLOOD SPECIMENOrdering Facility: [facility] Address: [address] [place] [address] Performed By: #### 5 8410-2 ####[facility] LABIA [id number] [place] [address] [place] RBC (Bld) [#/Vol] 4.05 10*6/uL Low 4.20-6.00 [facility] Comment on above: Order Comment: Speci men Type: BLOOD SPECIMENOrdering Facility: [facility] Address: [address] [place] [address] Performed By: #### 5 8410-2 ####[facility] LABIA [id number] [place] [address] [place] WBC (Bld) [#/Vol] 8.50 10*3/uL Normal 3.70-11.00 [facility] Comment on above: Order Comment: Speci men Type: BLOOD SPECIMENOrdering Facility: [facility] Address: [address] [place] [address] Performed By: #### 5 8410-2 ####[facility] LABCLIA [id number] [facility] [id number] [id number] [place] CT ABD/PEL W IVCONon 024 CT ABD/PEL W IVCON * * *Final Report* * * DATE OF EXAM: Mar 27 2024 6:49PM [facility] 0530 - CT ABD/PEL W IVCON / PROCEDURE REASON: Peritonitis or perforation suspected * * * * Physician Interpretation * * * * EXAMINATION: CT ABDOMEN AND PELVIS WITH IV CONTRAST CLINICAL HISTORY: 38y male admitted from OSH with concern for sigmoid colon perforation status post appendectomy. TECHNIQUE: CT of the abdomen and pelvis was performed using standard technique, scanning from just above the dome of the diaphragm to the symphysis pubis. MQ: CTAP_3 Contrast: IV: 100 ml of Omnipaque 350 Oral: 450 ml of Omni 240 10-25ml diluted with water CT Radiation dose: Integrated Dose-length product (DLP) for this visit = 626 mGy*cm. CT Dose Reduction Employed: mAs-kVp adjusted based on patient size-age COMPARISON: CT abdomen and pelvis 03/24/2024 RESULT: Liver: No mass. Biliary: No bile duct dilation. Gallbladder is unremarkable. Spleen: No mass. No splenomegaly. Pancreas: No mass or duct dilation. Adrenals: No mass. Kidneys: No mass or hydronephrosis. 3 mm nonobstructing right midpole calculus. GI tract: NG/OG tube tip in the gastric body. Ileocolic anastomosis in the right lower quadrant. Redemonstrated wall thickening and inflammatory stranding adjacent to the anastomosis. No extraluminal contrast identified. Clustered loops of small bowel and the sigmoid colon near the anastomosis with mild wall thickening, likely reactive, as before. No dilated bowel. Lymph nodes: Few prominent ileocolic lymph nodes, likely reactive. Mesentery/Peritoneum: Dense inflammatory stranding in the right lower quadrant in the anastomosis. No organized collection or extra luminal contrast. Surgical drains terminating in the pelvis. Retroperitoneum: No mass. Vasculature: - Abdominal aorta and iliac arteries: No aneurysm. - Celiac and SMA: Patent without stenosis. - Portal venous system (SMV, splenic vein, portal vein and branches): Patent. - Hepatic veins: Patent. Pelvis: No mass, ascites or fluid collection. Small focus of gas within the bladder, likely related to prior instrumentation. Bones/Soft Tissues: Postoperative changes to ventral abdominal wall. Lower thorax: Trace bilateral pleural effusions with adjacent atelectasis. Localizer images: No additional findings. IMPRESSION: Redemonstrated changes of ileocolic anastomosis with extensive inflammatory changes surrounding anastomosis but without identified extra luminal contrast or organized collection. [employer] Consultant: KIRA Transcribe Date/Time: Mar 27 2024 7:39P Dictated by : MYLENE GARY MD This examination was interpreted and the report reviewed and electronically signed by: MYLENE GARY MD on Mar 27 2024 7:54PM EST [id number] Normal [facility] Magnesium [facility] 03-27 Magnesium [Mass/Vol] 2.3 mg/dL Normal 1.7-2.3 [facility] Comment on above: Order Comment: Speci men Type: BLOOD SPECIMENOrdering Facility: [facility] Address: [address] [place] [address] Performed By: #### 2 4321-2, 45496-8, 27710-04 ####[facility] LABCLIA [id number] [place] [address] [facility] [place] Phosphate SerPl-mCncon 03-27 Phosphate [Mass/Vol] 3.5 mg/dL Normal 2.7-4.8 [facility] Comment on above: Order Comment: Speci men Type: BLOOD SPECIMENOrdering Facility: [facility] Address: [address] [place] [address] Performed By: #### 2 4321-2, 44109-2, 2777- ####[facility] LABCLIA [id number] [address] [id number] [address] [place] Basic metabolic 2000 panelon 03-26-2024 Anion gap [Moles/Vol] 11 mmol/L Normal 8-15 [facility] Comment on above: Order Comment: Speci men Type: BLOOD SPECIMENOrdering Facility: [facility] Address: [address] [place] [address] Performed By: #### 2 4321-2, ####[facility] LABCLIA [id number] [place] [address] [place] Calcium [Mass/Vol] 8.6 mg/dL Normal 8.5-10.2 [facility] Comment on above: Order Comment: Speci men Type: BLOOD SPECIMENOrdering Facility: [facility] Address: [address] [place] [address] Performed By: #### 2 4321-2, ####[facility] LABCLIA [id number] [place] [address] [place] Chloride [Moles/Vol] 103 mmol/L Normal 98-107 [facility] Comment on above: Order Comment: Speci men Type: BLOOD SPECIMENOrdering Facility: [facility] Address: [address] [place] [address] Performed By: #### 2 4321-2, ####[facility] LABCLIA [id number] [place] [address] [place] CO2 [Moles/Vol] 23 mmol/L Normal 22-30 [facility] Comment on above: Order Comment: Speci men Type: BLOOD SPECIMENOrdering Facility: [facility] Address: [address] [place], [place] [address] Performed By: #### 2 4321-2, ####[facility] LABCLIA [id number] [place] [id number] [place] Creatinine [Mass/Vol] 0.87 mg/dL Normal 0.73-1.22 [facility] Comment on above: Order Comment: Klaus colindres Type: BLOOD SPECIMENOrdering Facility: [facility] Address: [address] [place] [address] Performed By: #### 2 4321-2, ####[facility] LABCLIA [id number] [place] [address] [place] Creatinine and Glomerular filtration rate.predicted panel (S/P/Bld) 113 mL/min/1.73m??? Normal >=60 [facility] Comment on above: Order Comment: Klaus colindres Type: BLOOD SPECIMENOrdering Facility: [facility] Address: [address] [place] [address] Result Comment: Codie mated Glomerular Filtration Rate (eGFR) is calculated using the 2020 CKD-EPI creatinine equation. This equation utilizes serum creatinine, sex, and age as parameters. The creatinine assay has traceable calibration to isotope dilution-mass spectrometry. Refer to KDIGO guidelines for clinical interpretation. In patients with unstable renal function, e.g. those with acute kidney injury, the eGFR may not accurately reflect actual GFR. Performed By: #### 2 4321-2, ####[facility] LABCLIA [id number] [place] [id number] [place] Glucose [Mass/Vol] 102 mg/dL High 74-99 [facility] Comment on above: Order Comment: Klaus colindres Type: BLOOD SPECIMENOrdering Facility: [facility] Address: [address] [place] [address] Result Comment: The [place] Diabetes [employer] (ADA) provides guidance for cutoff values for fasting glucose and random glucose. The ADA defines fasting as no caloric intake for at least 8 hours. Fasting plasma glucose results between 100 to 125 mg/dL indicate increased risk for diabetes (prediabetes). Fasting plasma glucose results greater than or equal to 126 mg/dL meet the criteria for diagnosis of diabetes. In the absence of unequivocal hyperglycemia, results should be confirmed by repeat testing. In a patient with classic symptoms of hyperglycemia or hyperglycemic crisis, random plasma glucose results greater than or equal to 200 mg/dL meet the criteria for diagnosis of diabetes. Reference: Standards of Medical Care in Diabetes 2016, [place] [employer]. Diabetes Care. 2016.39(Suppl 1). Performed By: #### 2 1-2, ####[facility] LABCLIA [id number] [address] [address] [place] Potassium [Moles/Vol] 3.8 mmol/L Normal 3.7-5.1 [facility] Comment on above: Order Comment: Speci men Type: BLOOD SPECIMENOrdering Facility: [facility] Address: [address] [place] [address] Performed By: #### 2 4320-2, ####[facility] LABIA [id number] [place] [address] [place] Sodium [Moles/Vol] 137 mmol/L Normal 136-144 [facility] Comment on above: Order Comment: Speci men Type: BLOOD SPECIMENOrdering Facility: [facility] Address: [address] [place] [address] Performed By: #### 2 4320-05, ####[facility] LABIA [id number] [place] [address] [place] Urea nitrogen [Mass/Vol] 11 mg/dL Normal 9-24 [facility] Comment on above: Order Comment: Speci men Type: BLOOD SPECIMENOrdering Facility: [facility] Address: [address] [place] [address] Performed By: #### 2 2, ####[facility] LABIA [id number] [place] [id number] [place] CBC panel Auto (Bld)on 03-26 Erythrocyte distribution width (RBC) [Ratio] 12.3 % Normal 11.5-15.0 [facility] Comment on above: Order Comment: Speci men Type: BLOOD SPECIMENOrdering Facility: [facility] Address: [address] [place] [address] Performed By: #### 5 8410-2 ####[facility] LABIA [id number] [place] [address] [place] Hematocrit (Bld) [Volume fraction] 34.7 % Low 39.0-51.0 [facility] Comment on above: Order Comment: Speci men Type: BLOOD SPECIMENOrdering Facility: [facility] Address: [address] [place] [address] Performed By: #### 5 8410-2 ####[facility] LABIA [id number] [place] [address] [place] Hemoglobin (Bld) [Mass/Vol] 11.7 g/dL Low 13.0-17.0 [facility] Comment on above: Order Comment: Speci men Type: BLOOD SPECIMENOrdering Facility: [facility] Address: [address] [place] [address] Performed By: #### 5 8410-2 ####[facility] LABIA [id number] [place] [address] [place] MCH (RBC) [Entitic mass] 28.5 pg Normal 26.0-34.0 [facility] Comment on above: Order Comment: Speci men Type: BLOOD SPECIMENOrdering Facility: [facility] Address: [address] [place] [address] Performed By: #### 5 8410-2 ####[facility] LABIA [id number] [place] [address] [place] MCHC (RBC) [Mass/Vol] 33.7 g/dL Normal 30.5-36.0 [facility] Comment on above: Order Comment: Speci men Type: BLOOD SPECIMENOrdering Facility: [facility] Address: [address] [place] [address] Performed By: #### 5 8410-2 ####[facility] LABIA [id number] [place] [address] [place] MCV (RBC) [Entitic vol] 84.4 fL Normal 80.0-100.0 [facility] Comment on above: Order Comment: Speci men Type: BLOOD SPECIMENOrdering Facility: [facility] Address: [address] [place] [address] Performed By: #### 5 8410-2 ####[facility] LABCLIA [id number] [place] [address] [place] Nucleated RBC (Bld) [#/Vol] 10*3/uL Normal <0.01 [facility] Comment on above: Order Comment: Speci men Type: BLOOD SPECIMENOrdering Facility: [facility] Address: [address] [place] [address] Performed By: #### 5 8410-2 ####[facility] LABCLIA [id number] [place] [address] [place] Platelet mean volume (Bld) [Entitic vol] 10.1 fL Normal 9.0-12.7 [facility] Comment on above: Order Comment: Speci men Type: BLOOD SPECIMENOrdering Facility: [facility] Address: [address] [place] [address] Performed By: #### 5 8410-2 ####[facility] LABIA [id number] [place] [address] [place] Platelets (Bld) [#/Vol] 234 10*3/uL Normal 150-400 [facility] Comment on above: Order Comment: Speci men Type: BLOOD SPECIMENOrdering Facility: [facility] Address: [address] [place] [address] Performed By: #### 5 8410-2 ####[facility] LABCLIA [id number] [place] [address] [place] RBC (Bld) [#/Vol] 4.11 10*6/uL Low 4.20-6.00 [facility] [facility] Comment on above: Order Comment: Speci men Type: BLOOD SPECIMENOrdering Facility: [facility] Address: [address] [place] [address] Performed By: #### 5 8410-2 ####[facility] LABCLIA [id number] [place] [id number] [place] WBC (Bld) [#/Vol] 7.23 10*3/uL Normal 3.70-11.00 [facility] Comment on above: Order Comment: Speci men Type: BLOOD SPECIMENOrdering Facility: [facility] Address: [address] [place] [address] Performed By: #### 5 8410-2 ####[facility] LABIA [id number] [place] [address] [place] Magnesium SerPl-mCncon 03-26 Magnesium [Mass/Vol] 2.3 mg/dL Normal 1.7-2.3 [facility] Comment on above: Order Comment: Speci men Type: BLOOD SPECIMENOrdering Facility: [facility] Address: [address] [place] [address] Performed By: #### 2 4321-2, ####[facility] LABIA [id number] [place] [address] [place] Basic metabolic 2000 panelon 03-25-2024 Anion gap [Moles/Vol] 10 mmol/L Normal 8-15 [facility] Comment on above: Order Comment: Speci men Type: BLOOD SPECIMENOrdering Facility: [facility] Address: [address] [place] [address] Performed By: #### 2 777-1, 36112-4, 71908-4 ####[facility] LABCLIA [id number] [place] [id number] [place] Calcium [Mass/Vol] 8.5 mg/dL Normal 8.5-10.2 [facility] Comment on above: Order Comment: Speci men Type: BLOOD SPECIMENOrdering Facility: [facility] Address: [address] [place] [address] Performed By: #### 2 777-1, 74397-3, ####[facility] LABCLIA [id number] [place] [id number] [place] Chloride [Moles/Vol] 103 mmol/L Normal 98-107 [facility] Comment on above: Order Comment: Speci men Type: BLOOD SPECIMENOrdering Facility: [facility] Address: [address] [place] [address] Performed By: #### 2 777-1, 21581-7, ####[facility] LABCLIA [id number] [place] [address] [place] CO2 [Moles/Vol] 25 mmol/L Normal 22-30 [facility] Comment on above: Order Comment: Speci men Type: BLOOD SPECIMENOrdering Facility: [facility] Address: [address] [place] [address] Performed By: #### 2 777-1, 63209-0, ####[facility] LABIA [id number] [place] [address] [place] Creatinine [Mass/Vol] 0.83 mg/dL Normal 0.73-1.22 [facility] Comment on above: Order Comment: Speci men Type: BLOOD SPECIMENOrdering Facility: [facility] Address: [address] [place] [address] Performed By: #### 2 777-1, 74701-6, ####[facility] LABIA [id number] [place] [address] [place] Creatinine and Glomerular filtration rate.predicted panel (S/P/Bld) 115 mL/min/1.73m??? Normal >=60 [facility] Comment on above: Order Comment: Speci men Type: BLOOD SPECIMENOrdering Facility: [facility] Address: [address] [place] [address] Result Comment: Codie mated Glomerular Filtration Rate (eGFR) is calculated using the 2020 CKD-EPI creatinine equation. This equation utilizes serum creatinine, sex, and age as parameters. The creatinine assay has traceable calibration to isotope dilution-mass spectrometry. Refer to KDIGO guidelines for clinical interpretation. In patients with unstable renal function, e.g. those with acute kidney injury, the eGFR may not accurately reflect actual GFR. Performed By: #### 2 777-1, 18452-4, ####[facility] LABCLIA [id number] [place] [id number] [place] Glucose [Mass/Vol] 92 mg/dL Normal 74-99 [facility] Comment on above: Order Comment: Speci men Type: BLOOD SPECIMENOrdering Facility: [facility] Address: [address] [place] [address] Result Comment: The [place] Diabetes [employer] (ADA) provides guidance for cutoff values for fasting glucose and random glucose. The ADA defines fasting as no caloric intake for at least 8 hours. Fasting plasma glucose results between 100 to 125 mg/dL indicate increased risk for diabetes (prediabetes). Fasting plasma glucose results greater than or equal to 126 mg/dL meet the criteria for diagnosis of diabetes. In the absence of unequivocal hyperglycemia, results should be confirmed by repeat testing. In a patient with classic symptoms of hyperglycemia or hyperglycemic crisis, random plasma glucose results greater than or equal to 200 mg/dL meet the criteria for diagnosis of diabetes. Reference: Standards of Medical Care in Diabetes 2016, [place] [employer]. Diabetes Care. 2016.39(Suppl 1). Performed By: #### 2 777-1, 67909-0, ####[facility] LABCLIA [id number] [address] [address] [place] Potassium [Moles/Vol] 3.7 mmol/L Normal 3.7-5.1 [facility] Comment on above: Order Comment: Speci men Type: BLOOD SPECIMENOrdering Facility: [facility] Address: [address] [place] [id number] Performed By: #### 2 777-1, 20836-6, ####[facility] LABCLIA [id number] [place] [id number] [place] Sodium [Moles/Vol] 138 mmol/L Normal 136-144 [facility] Comment on above: Order Comment: Speci men Type: BLOOD SPECIMENOrdering Facility: [facility] Address: [address] [place] [address] Performed By: #### 2 777-1, 20826-1, ####[facility] LABCLIA [id number] [place] [address] [place] Urea nitrogen [Mass/Vol] 10 mg/dL Normal 9-24 [facility] Comment on above: Order Comment: Speci men Type: BLOOD SPECIMENOrdering Facility: [facility] Address: [address] [place] [address] Performed By: #### 2 777-1, 68117-5, ####[facility] LABCLIA [id number] [place] [address] [place] CBC panel Auto (Bld)on 03-25 Erythrocyte distribution width (RBC) [Ratio] 12.4 % Normal 11.5-15.0 [facility] Comment on above: Order Comment: Speci men Type: BLOOD SPECIMENOrdering Facility: [facility] Address: [address] [place] [address] Performed By: #### 5 8410-2 ####[facility] LABCLIA [id number] [place] [id number] [place] Hematocrit (Bld) [Volume fraction] 35.8 % Low 39.0-51.0 [facility] Comment on above: Order Comment: Speci men Type: BLOOD SPECIMENOrdering Facility: [facility] Address: [address] [place] [address] Performed By: #### 5 8410-2 ####[facility] LABCLIA [id number] [place] [address] [place] Hemoglobin (Bld) [Mass/Vol] 11.7 g/dL Low 13.0-17.0 [facility] Comment on above: Order Comment: Speci men Type: BLOOD SPECIMENOrdering Facility: [facility] Address: [address] [place] [address] Performed By: #### 5 8410-2 ####[facility] LABIA [id number] [place] [address] [place] MCH (RBC) [Entitic mass] 28.1 pg Normal 26.0-34.0 [facility] Comment on above: Order Comment: Speci men Type: BLOOD SPECIMENOrdering Facility: [facility] Address: [address] [place] [address] Performed By: #### 5 8410-2 ####[facility] [id number] [place] [address] [place] MCHC (RBC) [Mass/Vol] 32.7 g/dL Normal 30.5-36.0 [facility] Comment on above: Order Comment: Speci men Type: BLOOD SPECIMENOrdering Facility: [facility] Address: [address] [place] [address] Performed By: #### 5 8410-2 ####[facility] LABIA [id number] [place] [address] [place] MCV (RBC) [Entitic vol] 85.9 fL Normal 80.0-100.0 [facility] Comment on above: Order Comment: Speci men Type: BLOOD SPECIMENOrdering Facility: [facility] Address: [address] [place] [address] Performed By: #### 5 8410-2 ####[facility] LABIA [id number] [place] [address] [place] Nucleated RBC (Bld) [#/Vol] 10*3/uL Normal <0.01 [facility] Comment on above: Order Comment: Speci men Type: BLOOD SPECIMENOrdering Facility: [facility] Address: [address] [place] [address] Performed By: #### 5 8410-2 ####[facility] LABCLIA [id number] [place] [address] [place] Platelet mean volume (Bld) [Entitic vol] 10.4 fL Normal 9.0-12.7 [facility] Comment on above: Order Comment: Speci men Type: BLOOD SPECIMENOrdering Facility: [facility] Address: [address] [place] [address] Performed By: #### 5 8410-2 ####[facility] LABCLIA [id number] [place] [address] [place] Platelets (Bld) [#/Vol] 238 10*3/uL Normal 150-400 [facility] Comment on above: Order Comment: Speci men Type: BLOOD SPECIMENOrdering Facility: [facility] Address: [address] [place] [address] Performed By: #### 5 8410-2 ####[facility] LABCLIA [id number] [place] [address] [place] RBC (Bld) [#/Vol] 4.17 10*6/uL Low 4.20-6.00 [facility] Comment on above: Order Comment: Speci men Type: BLOOD SPECIMENOrdering Facility: [facility] Address: [address] [place] [address] Performed By: #### 5 8410-2 ####[facility] LABCLIA [id number] [place] [address] [place] WBC (Bld) [#/Vol] 8.40 10*3/uL Normal 3.70-11.00 [facility] Comment on above: Order Comment: Speci men Type: BLOOD SPECIMENOrdering Facility: [facility] Address: [address] [place] [address] Performed By: #### 5 8410-2 ####[facility] LABCLIA [id number] [place] [address] [place] Magnesium SerPl-mCncon 03-25 Magnesium [Mass/Vol] 2.3 mg/dL Normal 1.7-2.3 [facility] Comment on above: Order Comment: Speci men Type: BLOOD SPECIMENOrdering Facility: [facility] Address: [address] [place] [address] Performed By: #### 2 777-1, 60659-0, ####[facility] LABIA [id number] [place] [address] [place] Phosphate SerPl-mCncon 03-25 Phosphate [Mass/Vol] 2.9 mg/dL Normal 2.7-4.8 [facility] Comment on above: Order Comment: Speci men Type: BLOOD SPECIMENOrdering Facility: [facility] Address: [address] [place] [address] Performed By: #### 2 777-1, 26774-7, ####[facility] LABIA [id number] [place] [address] [place] CBC panel Auto (Bld)on 03-24 Erythrocyte distribution width (RBC) [Ratio] 12.5 % Normal 11.5-15.0 [facility] Comment on above: Order Comment: Speci men Type: BLOOD SPECIMENOrdering Facility: [facility] Address: [address] [place] [address] Performed By: #### 5 8410-2 ####[facility] LABCLIA [id number] [place] [address] [place] Hematocrit (Bld) [Volume fraction] 34.4 % Low 39.0-51.0 [facility] Comment on above: Order Comment: Speci men Type: BLOOD SPECIMENOrdering Facility: [facility] Address: [address] [place] [address] Performed By: #### 5 8410-2 ####[facility] LABIA [id number] [place] [address] [place] Hemoglobin (Bld) [Mass/Vol] 11.0 g/dL Low 13.0-17.0 [facility] Comment on above: Order Comment: Speci men Type: BLOOD SPECIMENOrdering Facility: [facility] Address: [address] [place] [address] Performed By: #### 5 8410-2 ####[facility] LABIA [id number] [place] [address] [place] MCH (RBC) [Entitic mass] 28.2 pg Normal 26.0-34.0 [facility] Comment on above: Order Comment: Speci men Type: BLOOD SPECIMENOrdering Facility: [facility] Address: [address] [place] [address] Performed By: #### 5 8410-2 ####[facility] LABIA [id number] [place] [address] [place] MCHC (RBC) [Mass/Vol] 32.0 g/dL Normal 30.5-36.0 [facility] Comment on above: Order Comment: Speci men Type: BLOOD SPECIMENOrdering Facility: [facility] Address: [address] [place] [address] Performed By: #### 5 8410-2 ####[facility] LABIA [id number] [place] [address] [place] MCV (RBC) [Entitic vol] 88.2 fL Normal 80.0-100.0 [facility] Comment on above: Order Comment: Speci men Type: BLOOD SPECIMENOrdering Facility: [facility] Address: [address] [place] [address] Performed By: #### 5 8410-2 ####[facility] LABCLIA [id number] [place] [address] [place] Nucleated RBC (Bld) [#/Vol] 10*3/uL Normal <0.01 [facility] Comment on above: Order Comment: Speci men Type: BLOOD SPECIMENOrdering Facility: [facility] Address: [address] [place] [address] Performed By: #### 5 8410-2 ####[facility] LABIA [id number] [place] [address] [place] Platelet mean volume (Bld) [Entitic vol] 10.3 fL Normal 9.0-12.7 [facility] Comment on above: Order Comment: Speci men Type: BLOOD SPECIMENOrdering Facility: [facility] Address: [address] [place] [address] Performed By: #### 5 8410-2 ####[facility] LABIA [id number] [place] [address] [place] Platelets (Bld) [#/Vol] 186 10*3/uL Normal 150-400 [facility] Comment on above: Order Comment: Speci men Type: BLOOD SPECIMENOrdering Facility: [facility] Address: [address] [place] [address] Performed By: #### 5 8410-2 ####[facility] LABIA [id number] [place] [address] [place] RBC (Bld) [#/Vol] 3.90 10*6/uL Low 4.20-6.00 [facility] Comment on above: Order Comment: Speci men Type: BLOOD SPECIMENOrdering Facility: [facility] Address: [address] [place] [address] Performed By: #### 5 8410-2 ####[facility] LABIA [id number] [address] [address] [place] WBC (Bld) [#/Vol] 8.01 10*3/uL Normal 3.70-11.00 [facility] Comment on above: Order Comment: Speci men Type: BLOOD SPECIMENOrdering Facility: [facility] Address: [address] [place] [address] Performed By: #### 5 8410-2 ####[facility] LABCLIA [id number] [place] [address] [place] CONFIRM BLOOD TYPEon 024 ABO AB Normal [facility] Comment on above: Order Comment: Speci men Type: BLOOD SPECIMENOrdering Facility: [facility] Address: [address] [place] [address] Performed By: #### C ONABO ####[facility] BLOOD BANKCLIA [id number] [place] [address] [place] Rh Nom (Bld) Negative Normal [facility] Comment on above: Order Comment: Speci men Type: BLOOD SPECIMENOrdering Facility: [facility] Address: [address] [place] [address] Performed By: #### C ONABO ####[facility] BLOOD BANKCLIA [id number] [place] [address] [place] CRP SerPl-mCncon 03-24-2024 CRP [Mass/Vol] 14.9 mg/dL High <0.9 [facility] Comment on above: Order Comment: Speci men Type: BLOOD SPECIMENOrdering Facility: [facility] Address: [address] [place] [address] Performed By: #### 1 988-5, 49156-2, 2777-1, 65672-5 ####[facility] LABCLIA [id number] [place] [address] [place] ABD/PEL W IVCONon 024 CT ABD/PEL W IVCON * * *Final Report* * * DATE OF EXAM: Mar 24 2024 12:46PM [facility] 0530 - CT ABD/PEL W IVCON / PROCEDURE REASON: Abdominal abscess/infection suspected * * * * Physician Interpretation * * * * EXAMINATION: CT ABDOMEN AND PELVIS WITH IV CONTRAST CLINICAL HISTORY: History of perforated appendicitis, status post resection of a large phlegmonous mass attached small bowel/colon (per OSH records). Concern for bowel perforation. TECHNIQUE: CT of the abdomen and pelvis was performed using standard technique, scanning from just above the dome of the diaphragm to the symphysis pubis. MQ: CTAP_3 Contrast: IV: 100 ml of Omnipaque 350 CT Radiation dose: Integrated Dose-length product (DLP) for this visit = 739 mGy*cm. CT Dose Reduction Employed: Automated exposure control (AEC) COMPARISON: OSH CT A/P 03/21/2024 RESULT: Liver: No mass. Biliary: No bile duct dilation. Gallbladder sludge. Spleen: No mass. No splenomegaly. Pancreas: No mass or duct dilation. Adrenals: No mass. Kidneys: No mass, calculus or hydronephrosis. GI tract: Enteric tube terminates in the gastric body. Patient is status post appendectomy with ileocecal resection and ileocolonic anastomosis, with mild inflammatory change and mild mural edema involving the ascending colon, nonspecific given recent postoperative state and suboptimally assessed without contrast. No organized collections or pneumatosis. Sigmoid colon is collapsed, though appears mildly edematous in the central abdomen (3:134). No large bowel dilation. Minimally dilated terminal ileum at 3.3 cm (3:119), with otherwise unremarkable small bowel. Lymph nodes: Shotty right lower quadrant reactive nodes near the surgical bed. No overt abdominopelvic lymphadenopathy. Mesentery/Peritoneum: No ascites or mass. Scattered tiny foci of intraperitoneal air, including in the right inguinal region (3:158-163), likely from recent surgery. Retroperitoneum: No mass. Vasculature: - Abdominal aorta and iliac arteries: No aneurysm. - Celiac and SMA: Patent without stenosis. - Portal venous system (SMV, splenic vein, portal vein and branches): Patent. - Hepatic veins: Patent. Pelvis: Left and right lower quadrant surgical drains terminate in the right lower pelvis with, without organized collections in the pelvis. Trace layering ascites. Johnson catheter decompresses the bladder, with iatrogenic air. Bones/Soft Tissues: Midline surgical wound with midline supraumbilical and infraumbilical subcutaneous drains, without organized collections. Mild symmetric bilateral gynecomastia. Lower thorax: Small bilateral pleural effusions with associated atelectasis. Localizer images: No additional findings. IMPRESSION: Recent postoperative changes of appendectomy, without organized collections. No overt bowel dilation, pneumatosis, or nav perforation. Tiny foci of pneumoperitoneum likely postsurgical. Small bilateral pleural effusions. [employer] Consultant: PSCB Transcribe Date/Time: Mar 24 2024 12:54P Dictated by : VIANEY HASTINGS DO This examination was interpreted and the report reviewed and electronically signed by: MELINDA SMITH MD on Mar 24 2024 3:45PM EST [id number] Normal [facility] Comprehensive metabolic 2000 panelon 03-24-2024 Albumin [Mass/Vol] 2.8 g/dL Low 3.9-4.9 [facility] Comment on above: Order Comment: Speci men Type: BLOOD SPECIMENOrdering Facility: [facility] Address: [address] [place] [address] Performed By: #### 1 988-5, 95597-7, 2777-1, 03672-2 ####[facility] [id number] [place] [address] [place] ALP [Catalytic activity/Vol] 61 U/L Normal 38-113 [facility] Comment on above: Order Comment: Speci men Type: BLOOD SPECIMENOrdering Facility: [facility] Address: [address] [place] [address] Performed By: #### 1 988-5, 79784-6, 2777-1, 99177-8 ####[facility] [id number] [place] [address] [place] ALT [Catalytic activity/Vol] 17 U/L Normal 10-54 [facility] Comment on above: Order Comment: Speci men Type: BLOOD SPECIMENOrdering Facility: [facility] Address: [address] [place] [address] Performed By: #### 1 988-5, 27719-0, 277-, 58519-5 ####[facility] LABCLIA [id number] [address] [address] [place] Anion gap [Moles/Vol] 12 mmol/L Normal 8-15 [facility] Comment on above: Order Comment: Speci men Type: BLOOD SPECIMENOrdering Facility: [facility] Address: [address] [place] [address] Performed By: #### 1 988-5, 77662-8, 2776-04, 18500-5 ####[facility] LABCLIA [id number] [address] [address] [place] AST [Catalytic activity/Vol] 19 U/L Normal 14-40 [facility] Comment on above: Order Comment: Speci men Type: BLOOD SPECIMENOrdering Facility: [facility] Address: [address] [place] [address] Performed By: #### 1 988-5, 19827-4, 27710-04, 33177-5 ####[facility] LABCLIA [id number] [address] [address] [place] Bilirubin [Mass/Vol] 1.3 mg/dL Normal 0.2-1.3 [facility] Comment on above: Order Comment: Speci men Type: BLOOD SPECIMENOrdering Facility: [facility] Address: [address] [place] [address] Performed By: #### 1 988-5, 24517-3, 27710-04, 54202-6 ####[facility] LABCLIA [id number] [address] [address] [place] Calcium [Mass/Vol] 8.5 mg/dL Normal 8.5-10.2 [facility] Comment on above: Order Comment: Speci men Type: BLOOD SPECIMENOrdering Facility: [facility] Address: [address] [place] [address] Performed By: #### 1 988-5, 52848-1, 2777-1, 66711-7 ####[facility] LABCLIA [id number] [address] [address] [place] Chloride [Moles/Vol] 104 mmol/L Normal 98-107 [facility] Comment on above: Order Comment: Speci men Type: BLOOD SPECIMENOrdering Facility: [facility] Address: [address] [place] [address] Performed By: #### 1 988-5, 40804-1, 277-, 82193-6 ####[facility] LABCLIA [id number] [place] [address] [place] CO2 [Moles/Vol] 19 mmol/L Low 22-30 [facility] Comment on above: Order Comment: Speci men Type: BLOOD SPECIMENOrdering Facility: [facility] Address: [address] [place] [address] Performed By: #### 1 988-5, 31590-6, 2777-, 81641-8 ####[facility] LABCLIA [id number] [place] [address] [place] Creatinine [Mass/Vol] 0.77 mg/dL Normal 0.73-1.22 [facility] Comment on above: Order Comment: Speci men Type: BLOOD SPECIMENOrdering Facility: [facility] Address: [address] [place] [address] Performed By: #### 1 988-5, 07791-8, 27710-04, 26947-6 ####[facility] LABCLIA [id number] [place] [id number] [place] Creatinine and Glomerular filtration rate.predicted panel (S/P/Bld) 118 mL/min/1.73m??? Normal >=60 [facility] Comment on above: Order Comment: Speci men Type: BLOOD SPECIMENOrdering Facility: [facility] Address: [address] [place] [address] Result Comment: Codie mated Glomerular Filtration Rate (eGFR) is calculated using the 2020 CKD-EPI creatinine equation. This equation utilizes serum creatinine, sex, and age as parameters. The creatinine assay has traceable calibration to isotope dilution-mass spectrometry. Refer to KDIGO guidelines for clinical interpretation. In patients with unstable renal function, e.g. those with acute kidney injury, the eGFR may not accurately reflect actual GFR. Performed By: #### 1 988-5, 03101-7, 2776-04, 10033-7 ####[facility] LABIA [id number] [address] [address] [place] Glucose [Mass/Vol] 98 mg/dL Normal 74-99 [facility] Comment on above: Order Comment: Klaus colindres Type: BLOOD SPECIMENOrdering Facility: [facility] Address: [address] [place] [address] Result Comment: The [place] Diabetes Association (ADA) provides guidance for cutoff values for fasting glucose and random glucose. The ADA defines fasting as no caloric intake for at least 8 hours. Fasting plasma glucose results between 100 to 125 mg/dL indicate increased risk for diabetes (prediabetes). Fasting plasma glucose results greater than or equal to 126 mg/dL meet the criteria for diagnosis of diabetes. In the absence of unequivocal hyperglycemia, results should be confirmed by repeat testing. In a patient with classic symptoms of hyperglycemia or hyperglycemic crisis, random plasma glucose results greater than or equal to 200 mg/dL meet the criteria for diagnosis of diabetes. Reference: Standards of Medical Care in Diabetes 2016, [place] [employer]. Diabetes Care. 2016.39(Suppl 1). Performed By: #### 1 988-5, 43388-2, 2776-, 27338-3 ####[facility] LABIA [id number] [address] [address] [place] Potassium [Moles/Vol] 3.9 mmol/L Normal 3.7-5.1 [facility] Comment on above: Order Comment: Specmanny colindres Type: BLOOD SPECIMENOrdering Facility: [facility] Address: [address] [id number] Performed By: #### 1 988-5, 33816-2, 2777-1, 85129-1 ####[facility] LABIA [id number] [place] [id number] [place] Protein [Mass/Vol] 5.7 g/dL Low 6.3-8.0 [facility] Comment on above: Order Comment: Speci men Type: BLOOD SPECIMENOrdering Facility: [facility] Address: [address] [place] [address] Performed By: #### 1 988-5, 36992-9, 2777-1, 87990-8 ####[facility] [id number] [place] [address] [place] Sodium [Moles/Vol] 135 mmol/L Low 136-144 [facility] Comment on above: Order Comment: Speci men Type: BLOOD SPECIMENOrdering Facility: [facility] Address: [address] [place] [address] Performed By: #### 1 988-5, 17040-3, 2777-1, 47245-8 ####[facility] [id number] [place] [address] [place] Urea nitrogen [Mass/Vol] 8 mg/dL Low 9-24 [facility] Comment on above: Order Comment: Speci men Type: BLOOD SPECIMENOrdering Facility: [facility] Address: [address] [place] [address] Performed By: #### 1 988-5, 39585-9, 2777-1, 02436-3 ####[facility] [id number] [place] [id number] [place] Final Surgical Pathology Rep miles 03-24-2024 Final Surgical Pathology Report . Pathology Reports Accession: Collected Date/Time: Received Date/Time: Pathologist: [id number] 03/21/2024 19:56 EST 03/22/2024 14:21 MD SHUKRI OCASIO Final Surgical Pathology Report DIAGNOSIS: ILEOCECAL JUNCTION, RESECTION: - ACTIVE CHRONIC INFLAMMATION WITH ULCERATION, FULL-THICKNESS INFLAMMATION, FIBROUS SEROSAL ADHESIONS AND FISTULA CONSISTENT WITH CROHN'S - APPENDIX -FIBROUS OBLITERATION OF THE LUMEN - MULTIPLE REACTIVE LYMPH NODES - NEGATIVE FOR DYSPLASIA OR MALIGNANCY Comment: Case discussed with Dr. Warren. COMMENT: [facility] - [id number] CLINICAL INFORMATION: APPENDICITIS SPECIMEN: A ILEOCECAL JUNCTION GROSS DESCRIPTION: All parts labelled with patient name and [id number] Received labelled "ileocecal junction" is a right hemicolectomy with highly adhesed, looped terminal ileum (41 x 1 -3.5 cm), cecum (9 x 6 cm) and appendix (5 x 1.5 cm). The serosal surface is yellow -brown-hemorrhagic with multiple adhesions, areas of creeping fat and central sutures. The specimen is opened at both stapled ends to reveal terminal ileum mucosa which is fuchs-pink, edematous, pseudopolyps, focally ulcerated, areas with minimal mucosal folds and thickened fibrous luu measuring up to 1.2 cm. Located centrally in the specimen amongst a large amount of adhesions and sutured tissue is a fistula tract. The cecum mucosa is fuchs-pink to pena focally edematous with no polyp or tumor mass identified. The pericolonic adipose tissue is palpated and dissected to reveal multiple lymph nodes which are submitted. RS-14 Cassette Summary: A1 - Proximal staple line margin A2 - Distal staple line margin A3 - Appendix A4-A9 -Terminal ileum mucosa A10-A11 -Fistula tract A12-A13 -Cecum mucosa A14 - 5 possible lymph nodes Gretta Camacho, Pathologists' Credit Operations Specialist (ASCP) Performed by GRETTA CAMACHO MICROSCOPIC DESCRIPTION: The microscopic examination is performed, except in the case of Gross Only. Electronically Signed by Pathology Report verified by [facility] SHUKRI SERRATO MD Sign out Date: 03/24/2024 14:50 Performing Lab: [facility], [address] [place] [address] Pathology Dept Pathology Reports Accession: Collected Date/Time: Received Date/Time: Pathologist: [id number] 03/21/2024 19:56 EST 03/22/2024 14:21 EST MD SHUKRI SERRATO Disclaimer If ancillary studies were utilized, the following Laboratory Developed Test (LDT) disclaimer will apply: Under CLIA requirements, [facility] is qualified to perform high complexity testing. For all ancillary stains, positive and negative controls stain appropriately. Performance characteristics of immunohistochemical and chromogenic in-situ hybridization tests have been determined by [facility]. These tests are used for clinical purposes, They should not be regarded as investigational or for research. Normal [facility] Magnesium SerPl-mCncon 03-24 Magnesium [Mass/Vol] 2.1 mg/dL Normal 1.7-2.3 [facility] Comment on above: Order Comment: Speci men Type: BLOOD SPECIMENOrdering Facility: [facility] Address: [address] [place] [address] Performed By: #### 1 988-5, 85236-1, 2777-1, 58967-7 ####[facility] LABIA [id number] [place] [address] [place] [facility] Phosphate SerPl-mCncon 03-24 Phosphate [Mass/Vol] 2.2 mg/dL Low 2.7-4.8 [facility] Comment on above: Order Comment: Speci men Type: BLOOD SPECIMENOrdering Facility: [facility] Address: [address] [place] [address] Performed By: #### 1 988-5, 18819-3, 2777-1, 46492-7 ####[facility] LABIA [id number] [place] [address] [place] Prealb SerPl-mCncon 03-24-20 24 Prealbumin [Mass/Vol] 10 mg/dL Low 17-36 [facility] Comment on above: Order Comment: Speci men Type: BLOOD SPECIMENOrdering Facility: [facility] Address: [address] [place] [address] Performed By: #### 1 4338-8 ####[facility] LABCLIA [id number] [place] [address] [place] TYPE + SCREENon 03-24-2024 ABO AB Normal [facility] Comment on above: Order Comment: Speci men Type: BLOOD SPECIMENOrdering Facility: [facility] Address: [address] [place] [address] Performed By: #### T SCR ####CC MAIN BLOOD BANKCLIA [id number] [address] [address] [place] Rh Nom (Bld) Negative Normal [facility] Comment on above: Order Comment: Speci men Type: BLOOD SPECIMENOrdering Facility: [facility] Address: [address] [place] [address] Performed By: #### T SCR ####CC MAIN BLOOD BANKCLIA [id number] [address] TYPE AND SCREEN EXPIRATION 03/27/2024 23:59 Normal [facility] Comment on above: Order Comment: Speci men Type: BLOOD SPECIMENOrdering Facility: [facility] Address: [address] [place] [address] Performed By: #### T SCR ####CC MAIN BLOOD BANKCLIA [id number] [place] [address] [place] CBC + DIFF DAILYon 4 Baso # 0.02 x10EE3/UL Normal 0.00 - 0.10 [facility] Comment on above: Performed By: #### 2 69659 #### [facility],[address] [place], [place] [id number] Basophils/100 WBC (Bld) 0.1 % Normal 0.0 - 2.0 % [facility].; [facility] Work Phone: Comment on above: Performed By: #### 2 00490 #### [facility],[address] [place] [address] CBC + DIFF DAILY Normal [facility] Comment on above: Result Comment: CBC- COMPLETE BLOOD COUNT Performed By: #### 2 32729 #### [facility],[address] [place] [address] EO # 0.28 x10EE3/UL Normal 0.00 - 0.50 [facility] Comment on above: Performed By: #### 2 41051 #### [place] [address] Eosinophils/100 WBC (Bld) 2.3 % Normal 0.0 - 7.0 % [facility].; [facility] Work Phone: Comment on above: Performed By: #### 2 20344 #### [place] [address] Erythrocyte distribution width (RBC) [Ratio] 13.4 % Normal 12.0 - 15.6 % [facility], [facility] Work Phone: Comment on above: Performed By: #### 2 58056 #### [place] [address] Hematocrit (Bld) [Volume fraction] 33.3 % Abnormal 40.0 - 52.0 % [facility], [facility].; [facility], [employer]. Work Phone: Comment on above: Performed By: #### 2 97981 #### [place] [id number] Hemoglobin (Bld) [Mass/Vol] 11.0 g/dL Abnormal 13.0 - 17.5 g/dL [facility].; [facility], [facility]. Work Phone: Comment on above: Performed By: #### 2 50523 #### [place] [id number] Lymph # 0.36 x10EE3/UL Low 0.80 - 2.80 [facility] Comment on above: Performed By: #### 2 29705 #### [facility],[address] [place], [place] [phone] Lymphocytes/100 WBC (Bld) 3.0 % Abnormal 20.0 - 45.0 % [facility].; [facility] Work Phone: Comment on above: Performed By: #### 2 25383 #### [facility],[address] [place] [address] MANUAL DIFF REVIEWED Normal [facility]. Work Phone: Comment on above: Performed By: #### 2 52562 #### [place] [phone] MCH (RBC) [Entitic mass] 28 pg Normal 27 - 33 pg [facility]. Work Phone: Comment on above: Performed By: #### 2 85923 #### [place] [id number] MCHC 33 X10 3 Normal 32 - 36 [facility] Comment on above: Performed By: #### 2 35831 #### [place] [id number] MCV (RBC) [Entitic vol] 86 fL Normal 81 - 98 fL [facility]. Work Phone: Comment on above: Performed By: #### 2 87559 #### [facility],[address] [place], [place] [phone] [place] # 0.72 x10EE3/UL Normal 0.20 - 1.00 [facility] Comment on above: Performed By: #### 2 10245 #### [facility],[address] [place] [address] MONOS % 6.1 % Normal 0.0 - 10.0 [facility] Comment on above: Performed By: #### 2 84847 #### [facility],[address] [place] [address] Morphology Douglas (Bld) [Interp] N/A Normal [facility].; [facility] Work Phone: Comment on above: Performed By: #### 2 52936 #### [facility],[address] [place] [address] Neut # 10.44 x10EE3/UL High 1.50 - 7.10 [facility] Comment on above: Performed By: #### 2 82305 #### [place] [id number] Neutrophils/100 WBC (Bld) 88.4 % Abnormal 46.0 - 76.0 % [facility]; [facility]. Work Phone: Comment on above: Performed By: #### 2 08222 #### [address] [address] PLATELET 194 x10EE3/UL Normal 150 - 450 [facility] Comment on above: Performed By: #### 2 31309 #### [facility],[address] [place] [address] Platelet mean volume (Bld) [Entitic vol] 8.1 fL Normal 6.4 - 10.5 fL [facility].; [facility] Work Phone: Comment on above: Result Comment: AUTO MATED DIFFERENTIAL Performed By: #### 2 02949 #### [place] [id number] RBC 3.87 x 10EE6/UL Low 4.50 - 6.00 [facility] Comment on above: Performed By: #### 2 40758 #### [facility],[address] [place], [place] [phone] WBC 11.8 x 10EE3/UL High 4.5 - 10.8 [facility] Comment on above: Performed By: #### 2 67542 #### [facility],[address] [place] [address] CMP with eGFR - DAILYon 03-06 AGE 38 years Normal [facility] Comment on above: Performed By: #### 2 74318 #### [facility],[address] [place] [address] Albumin [Mass/Vol] 2.1 g/dL Abnormal 3.4 - 5.0 g/dL [facility].; [facility]. Work Phone: Comment on above: Performed By: #### 2 53322 #### [facility],[address] [place] [address] Albumin/Globulin [Mass ratio] 0.6 {ratio} Low 0.9 - 1.6 [facility] Comment on above: Performed By: #### 2 42174 #### [facility],[address] [place] [address] ALK PHOS 51 U/L Normal 46 - 116 U/L [facility].; [facility] [facility]. Work Phone: Comment on above: Performed By: #### 2 93883 #### [facility],[address] [place], [place] [phone] ALT [Catalytic activity/Vol] 26 U/L Normal 16 - 63 U/L [facility].; [facility]. Work Phone: Comment on above: Performed By: #### 2 85444 #### [facility],[address] [place] [address] Anion gap [Moles/Vol] 10 mmol/L Normal 10 - 2 0 mmol/L [facility].; [facility], [facility]. Work Phone: Comment on above: Performed By: #### 2 96247 #### [facility],[address] [place] [address] AST [Catalytic activity/Vol] 21 U/L Normal 15 - 37 U/L [facility].; [facility] Work Phone: Comment on above: Performed By: #### 2 93768 #### [place] [id number] B/C RATIO 9 ratio Normal 0 - 30 [facility] Comment on above: Performed By: #### 2 71593 #### [address] [address] Bilirubin [Mass/Vol] 2.3 mg/dL Abnormal 0.2 - 1 .0 mg/dL [facility].; [facility] Work Phone: Comment on above: Performed By: #### 2 32543 #### [address] [address] Calcium [Mass/Vol] 8.1 mg/dL Abnormal 8.5 - 10. 1 mg/dL [facility], [facility].; [facility] Work Phone: Comment on above: Performed By: #### 2 10835 #### [facility],[address] [place] [address] Chloride [Moles/Vol] 106 mmol/L Normal 98 - 10 7 mmol/L [facility], [facility].; [employer] [facility] Work Phone: Comment on above: Performed By: #### 2 13313 #### [facility],[address] [place] [address] CMP with eGFR - DAILY Normal [facility] Comment on above: Result Comment: COMP REHENSIVE METABOLIC PANEL Performed By: #### 2 25356 #### [facility],[address] [place], [place] [phone] CO2 [Moles/Vol] 27.7 mmol/L Normal 21.0 - 32.0 mmol/L [facility]; [facility]. Work Phone: Comment on above: Performed By: #### 2 10663 #### [facility],[address] [place], [place] [phone] Creatinine [Mass/Vol] 0.94 mg/dL Normal 0.70 - 1.30 mg/dL [facility]; [facility]. Work Phone: Comment on above: Performed By: #### 2 91883 #### [facility],[address] [place] [address] GFR/1.73 sq M.predicted among non-blacks MDRD (S/P/Bld) [Vol rate/Area] mL/min/{1.73_m2} Normal 60 - 999 [facility] Comment on above: Performed By: #### 2 22422 #### [facility],[address] [place], [place] [phone] Result Comment: ACCO RDING TO THE NATIONAL KIDNEY DISEASE EDUCATION PROGRAM(NKDE), A NORMAL eGFR IS A VALUE GREATER THAN OR EQUAL TO 60 ML/MIN/1.73 SQ METERS. CHRONIC KIDNEY DISEASE: <60mL/MIN/1.73 SQ METERS KIDNEY FAILURE: <15mL/MIN/1.73 SQ METERS Globulin (S) [Mass/Vol] 3.3 g/dL Normal 1.5 - 3.8 g/dL [facility]; [facility] Work Phone: Comment on above: Performed By: #### 2 65554 #### [address] [address] Glucose [Mass/Vol] 101 mg/dL Normal 74 - 106 mg/dL [facility] Work Phone: Comment on above: Performed By: #### 2 26677 #### [address] [address] Potassium [Moles/Vol] 3.8 mmol/L Normal 3.5 - 5.1 mmol/L [facility], [facility].; [facility] Work Phone: Comment on above: Performed By: #### 2 83225 #### [address] [address] Protein [Mass/Vol] 5.4 g/dL Abnormal 6.4 - 8.2 g/dL [facility] Work Phone: Comment on above: Performed By: #### 2 37137 #### [address] [address] Sodium [Moles/Vol] 140 mmol/L Normal 136 - 145 mmol/L [facility] Work Phone: Comment on above: Performed By: #### 2 53144 #### [address] [address] Urea nitrogen [Mass/Vol] 8 mg/dL Normal 7 - 18 mg/dL [facility] Work Phone: Comment on above: Performed By: #### 2 23367 #### [facility],[address] [place], [place] [phone] HISTORY PHYSICALon HISTORY PHYSICAL HNO ID: [id number] Author: ALIX NUNEZ MD Service: Colorectal Author Type: Resident Type: H&P Filed: 03/23/2024 17:51 Note Text: -------- Attestation signed by Ozzie Pierre MD, PhD at 03/24/2024 3:48 PM Attending Note: Rebollar findings confirmed. Patient examined. Discussed with the resident and the patient. Plan as outlined. Ozzie Pierre MD, PhD -------- COLORECTAL SURGERY INITIAL CONSULT SERVICE DATE: 03/23/2024 SERVICE TIME: 5:44 PM ASSESSMENT AND PLAN This is a 38 yo male with PMH of chronic abdominal pain for past 20 years [facility] where CT scan showed perforated appendicitis. He was taken to OR on 03/21. Per pt and family a large phlegmonous mass attached to the small bowel and colon. This was resected. Post op pt was not improving and there was concern for sigmoid colon perforation. At this time pt was transferred to [facility]. On the exam pt is HDS. Abdomen is soft with mild diffuse tenderness. No acute surgical intervention at this time Will obtain CT abd/pel with con to further evaluate anatomy and look for infectious process NPO with NGT to [facility] This is a 38 yo male with PMH of chronic abdominal pain for past 20 years presented [facility] where CT scan showed perforated appendicitis. He was taken to OR on 03/21. Per pt and family a large phlegmonous mass attached to the small bowel and colon. This was resected. Post op pt was not improving and there was concern for sigmoid colon perforation. At this time pt was transferred to [facility]. Pt reports ongoing abdominal pain. Passing minimal flatus. NGT in place. PAST MEDICAL HISTORY: No past medical history on file. PAST SURGICAL HISTORY: No past surgical history on file. FAMILY HISTORY: No family history on file. SOCIAL HISTORY: MEDICATIONS: Prior to Admission Medications: No medications prior to admission. Current Facility-Administered Medications Medication Dose Route Frequency enoxaparin 40 mg injection (LOVENOX) 40 mg SUBCUTANEOUS DAILY NaCl 0.9% iv flush bag 20 mL INTRAVENOUS PRN [START ON 03/24/2024] pantoprazole 40 mg injection (PROTONIX) 40 mg INTRAVENOUS DAILY (6 AM) phenol 1 [place] (CHLORASEPTIC) 1 [place] MUCOUS MEMBRANE (TOPICAL MOUTH AND THROAT) q 2 H PRN benzocaine-menthol 1 Lozenge (CHLORASEPTIC) 1 Lozenge MUCOUS MEMBRANE (TOPICAL MOUTH AND THROAT) q 2 H PRN dextrose 5% in NaCl 0.9% iv infusion 80 mL/hr INTRAVENOUS CONTINUOUS piperacillin-tazobactam iv piggyback 3.375 g in dextrose (iso-osmotic) 50 mL (ZOSYN) 3.375 g INTRAVENOUS q 6 H acetaminophen 650 mg tab(s) (TYLENOL) 650 mg ORAL q 6 H Or acetaminophen 650 mg CUP (TYLENOL) 650 mg ORAL q 6 H ondansetron orally disintegrating 4 mg tab(s) (ZOFRAN ODT) 4 mg ORAL q 6 H PRN Or ondansetron (PF) 4 mg injection (ZOFRAN) 4 mg INTRAVENOUS q 6 H PRN iv contrast (radiology procedure) INTRAVENOUS DIRECTED PRN ALLERGIES: ALLERGIES No Known Allergies COMPLETE REVIEW OF SYSTEMS: See HPI OBJECTIVE PHYSICAL EXAM: BP 147/90 Pulse 89 Temp 36.5 ?C (97.7 ?F) (Oral) Resp 18 SpO2 98% There is no height or weight on file to calculate BMI. GENERAL: Alert, no distress, cooperative LUNGS: Lungs clear to auscultation, Good diaphragmatic excursion CARDIAC: Normal S1 and S2; no rubs, murmurs, or gallops ABDOMEN: soft, mild diffuse tenderness, mildly distended. Left and right lower quadrant drains are SSG EXTREMITIES: Extremities normal, no deformities, edema, clubbing or skin discoloration. Good capillary refill., No ulcers DATA: Diagnostic tests reviewed for today's visit: Most recent labs and imaging results. SIGNATURE: Alix Nunez MD PATIENT NAME: Jair Warren DATE: March 23, 2024 TIME: 5:43 PM PAGER/CONTACT #: [phone] Normal [facility] Laboratory - Chemistry and C hemistry - challengeon 03-23-2024 Albumin [Mass/Vol] 0.6 g/dL Abnormal 0.9 - 1.6 [facility] Work Phone: GFR/1.73 sq M.predicted among blacks MDRD (S/P/Bld) [Vol rate/Area] mL/min/{1.73_m2} Normal 60 - 999 {ML/MINUTE} [facility]; [facility] Work Phone: GFR/1.73 sq M.predicted MDRD (S/P/Bld) [Vol rate/Area] mL/min/{1.73_m2} Normal 60 - 999 {ML/MINUTE} [facility]; [facility] Work Phone: Urea nitrogen/Creatinine [Mass ratio] 9 {ratio} Normal 0 - 30 {ratio} [facility]; [facility] Work Phone: Laboratory - Hematology and Cell countson 03-23-2024 Basophils (Bld) [#/Vol] 0.02 {x10EE3/UL} Normal 0.00 - 0.10 {x10EE3/UL} [facility] Work Phone: Eosinophils (Bld) [#/Vol] 0.28 {x10EE3/UL} Normal 0.00 - 0.50 {x10EE3/UL} [facility].; [facility]. Work Phone: Lymphocytes (Bld) [#/Vol] 0.36 {x10EE3/UL} Abnormal 0.80 - 2.80 {x10EE3/UL} [facility]. Work Phone: MCHC (RBC) [Mass/Vol] 33 {X10_3} Normal 32 - 3 6 {X10_3} [facility].; [facility]. Work Phone: Monocytes (Bld) [#/Vol] 0.72 {x10EE3/UL} Normal 0.20 - 1.00 {x10EE3/UL} [facility].; [facility]. Work Phone: Monocytes/100 WBC (Bld) 6.1 % Normal 0.0 - 10.0 % [facility].; [facility]. Work Phone: Neutrophils (Bld) [#/Vol] 10.44 {x10EE3/UL} Abnormal 1.50 - 7.10 {x10EE3/UL} [facility].; [facility]. Work Phone: Platelets (Bld) [#/Vol] 194 {x10EE3/UL} Normal 150 - 450 {x10EE3/UL} [facility].; [facility]. Work Phone: RBC (Bld) [#/Vol] 3.87 {x_10EE6/UL} Abnormal 4.50 - 6.00 {x_10EE6/UL} [facility].; [facility]. Work Phone: WBC (Bld) [#/Vol] 11.8 {x_10EE3/UL} Abnormal 4.5 - 10.8 {x_10EE3/UL} [facility]healthZ[facility]; [facility] Work Phone: NURSING PROGon 03-23-2024 NURSING PROG HNO ID: [id number] Author: JOSE BALBUENA RN Service: ? Author Type: Registered Nurse Type: Nursing Progress Note Filed: 03/23/2024 17:28 Note Text: Patient transported to floor with belongings. AxOx3. Reports 9/10 abdominal pain. Colorectal service paged. Lungs diminished on room air. NG tube in place. Johnson draining clear, yellow urine. Nonskid footwear on, bed locked and in lowest position and call light in reach. Bed alarm on. Normal [facility] No Panel Informationon 03-23 AGE 38 {years} Normal [facility]; [facility] Work Phone: CBC + DIFF DAILY Normal [facility]; [facility] Work Phone: CMP with eGFR - DAILY Normal [facility]; [facility] Work Phone: XR ABDOMEN 1V SUPINEon 03-23 XR ABDOMEN 1V SUPINE * * *Final Report* * * DATE OF EXAM: Mar 23 2024 8:01PM JESUS [id number] - XR ABDOMEN 1V SUPINE / PROCEDURE REASON: Evaluate tube, line or lead position * * * * Physician Interpretation * * * * ABDOMINAL X-RAY, 1 VIEW. CLINICAL INFORMATION: Nasogastric/orogastric tube placement. CURRENT STUDY: 03/23/2024 19:07 COMPARISON: None to TECHNIQUE: Supine abdomen, 2 image(s). RESULT: See impression. IMPRESSION: Lines, tubes, and devices: NG/OG tube terminates in the gastric body with side-port subdiaphragmatic. Right lower quadrant surgical drain partially seen. Bowel: No dilated bowel in the included field of view. [employer] Consultant: PSCB Transcribe Date/Time: Mar 23 2024 11:41P Dictated by : JULIETTE CORTEZ DO This examination was interpreted and the report reviewed and electronically signed by: JULIETTE CORTEZ DO on Mar 23 2024 11:42PM EST [id number] Normal [facility] CBC + DIFF DAILYon 4 Baso # 0.03 x10EE3/UL Normal 0.00 - 0.10 [facility] Comment on above: Performed By: #### 2 [id number] #### [facility],[address] [place] [address] 11053 Basophils/100 WBC (Bld) 0.2 % Normal 0.0 - 2.0 % [facility].; [facility]. Work Phone: Comment on above: Performed By: #### 2 67826 #### [facility],[address] [place] [address]9532 CBC + DIFF DAILY Normal [facility] Comment on above: Result Comment: CBC- COMPLETE BLOOD COUNT Performed By: #### 2 91331 #### [facility],[address] [place] [address]604 EO # 0.08 x10EE3/UL Normal 0.00 - 0.50 [facility] Comment on above: Performed By: #### 2 95224 #### [facility],[address] [place] [address] Eosinophils/100 WBC (Bld) 0.4 % Normal 0.0 - 7.0 % [facility].; [facility]. Work Phone: Comment on above: Performed By: #### 2 08766 #### [facility],[address] [place] [address] 66694 Erythrocyte distribution width (RBC) [Ratio] 12.9 % Normal 12.0 - 15.6 % [facility], [facility], [employer]. Work Phone: Comment on above: Performed By: #### 2 43502 #### [place] [id number] Hematocrit (Bld) [Volume fraction] 34.9 % Abnormal 40.0 - 52.0 % [facility], [facility].; [facility] Work Phone: Comment on above: Performed By: #### 2 24606 #### [place] [id number] Hemoglobin (Bld) [Mass/Vol] 11.7 g/dL Abnormal 13.0 - 17.5 g/dL [facility], [facility].; [facility] Work Phone: Comment on above: Performed By: #### 2 64053 #### [place] [id number] Lymph # 0.37 x10EE3/UL Low 0.80 - 2.80 [facility] Comment on above: Performed By: #### 2 24085 #### [address] [address] Lymphocytes/100 WBC (Bld) 2.1 % Abnormal 20.0 - 45.0 % [facility], [facility].; [facility] Work Phone: Comment on above: Performed By: #### 2 91640 #### [address] [address] MANUAL DIFF REVIEWED Normal [facility], [facility].; [facility] Work Phone: Comment on above: Performed By: #### 2 84640 #### [address],[place] [address] MCH (RBC) [Entitic mass] 29 pg Normal 27 - 33 pg [facility].; [facility], [facility]. Work Phone: Comment on above: Performed By: #### 2 60853 #### [place] [address] MCHC 34 X10 3 Normal 32 - 36 [facility] Comment on above: Performed By: #### 2 85685 #### [place] [address] MCV (RBC) [Entitic vol] 86 fL Normal 81 - 98 fL [facility].; [facility], [employer]. Work Phone: Comment on above: Performed By: #### 2 82322 #### [place] [address] [place] # 1.27 x10EE3/UL High 0.20 - 1.00 [facility] Comment on above: Performed By: #### 2 71366 #### [place] [address] MONOS % 7.2 % Normal 0.0 - 10.0 [facility] Comment on above: Performed By: #### 2 34826 #### [place] [address] Morphology Douglas (Bld) [Interp] N/A Normal [facility].; [facility], [facility]. Work Phone: Comment on above: Performed By: #### 2 35230 #### [place] [address] Neut # 15.82 x10EE3/UL High 1.50 - 7.10 [facility] Comment on above: Performed By: #### 2 42283 #### [facility],[address] [place] [address]321 Neutrophils/100 WBC (Bld) 90.0 % Abnormal 46.0 - 76.0 % [facility]; [facility] Work Phone: Comment on above: Performed By: #### 2 00697 #### [facility],[address] [place] [address] 31469 PLATELET 210 x10EE3/UL Normal 150 - 450 [facility] Comment on above: Performed By: #### 2 41692 #### [facility],[address] [place] [address] 25203 Platelet mean volume (Bld) [Entitic vol] 7.8 fL Normal 6.4 - 10.5 fL [facility]; [facility] Work Phone: Comment on above: Result Comment: AUTO MATED DIFFERENTIAL Performed By: #### 2 19127 #### [address] [address] RBC 4.07 x 10EE6/UL Low 4.50 - 6.00 [facility] Comment on above: Performed By: #### 2 67817 #### [address] [address] WBC 17.6 x 10EE3/UL High 4.5 - 10.8 [facility] Comment on above: Performed By: #### 2 07413 #### [facility],[address] [place] [address] 47206 CMP with eGFR - DAILYon 03-06 AGE 38 years Normal [facility] Comment on above: Performed By: #### 2 83034 #### [facility],[address] [place] [address] 14050 Albumin [Mass/Vol] 2.3 g/dL Abnormal 3.4 - 5.0 g/dL [facility]; [facility]ENTEROrigin [facility] [employer] [facility], [facility] Work Phone: Comment on above: Performed By: #### 2 86579 #### [facility],[address] [place], [place] [phone] Albumin/Globulin [Mass ratio] 0.7 {ratio} Low 0.9 - 1.6 [facility] Comment on above: Performed By: #### 2 82004 #### [facility],[address] [place], [place] [phone] ALK PHOS 52 U/L Normal 46 - 116 U/L [facility].; [facility], [employer]. Work Phone: Comment on above: Performed By: #### 2 09369 #### [place] [phone] ALT [Catalytic activity/Vol] 28 U/L Normal 16 - 63 U/L [facility].; [facility], [facility] Work Phone: Comment on above: Performed By: #### 2 01502 #### [facility],[address] [place] [address] Anion gap [Moles/Vol] 9 mmol/L Abnormal 10 - 2 0 mmol/L [facility].; [facility], [facility] Work Phone: Comment on above: Performed By: #### 2 80948 #### [address] [address] AST [Catalytic activity/Vol] 23 U/L Normal 15 - 37 U/L [facility], [employer].; [employer] Work Phone: Comment on above: Performed By: #### 2 47023 #### [address] [address] B/C RATIO 9 ratio Normal 0 - 30 [facility] Comment on above: Performed By: #### 2 55200 #### [facility],[address] [place] [address] Bilirubin [Mass/Vol] 2.9 mg/dL Abnormal 0.2 - 1 .0 mg/dL [facility].; [facility], [employer]. Work Phone: Comment on above: Performed By: #### 2 16118 #### [facility],[address] [place] [address]78 Calcium [Mass/Vol] 8.4 mg/dL Abnormal 8.5 - 10. 1 mg/dL [facility].; [facility], [employer]. Work Phone: Comment on above: Performed By: #### 2 66230 #### [address] [address] Chloride [Moles/Vol] 104 mmol/L Normal 98 - 10 7 mmol/L [facility].; [facility]. Work Phone: Comment on above: Performed By: #### 2 98786 #### [address] [address] CMP with eGFR - DAILY Normal [facility] Comment on above: Result Comment: COMP REHENSIVE METABOLIC PANEL Performed By: #### 2 98086 #### [facility],[address] [place] [address]187 CO2 [Moles/Vol] 27.6 mmol/L Normal 21.0 - 32.0 mmol/L [facility], [facility].; [facility]. Work Phone: Comment on above: Performed By: #### 2 12373 #### [address] [address] Creatinine [Mass/Vol] 1.04 mg/dL Normal 0.70 - 1.30 mg/dL [facility].; [facility] CENTEROrigin Healthcare Solutions [employer] [facility] [facility]. Work Phone: Comment on above: Performed By: #### 2 14200 #### [address] [address] GFR/1.73 sq M.predicted among non-blacks MDRD (S/P/Bld) [Vol rate/Area] mL/min/{1.73_m2} Normal 60 - 999 [facility] Comment on above: Performed By: #### 2 81595 #### [facility],[address] [place] [address] Result Comment: ACCO RDING TO THE NATIONAL KIDNEY DISEASE EDUCATION PROGRAM(NKDE), A NORMAL eGFR IS A VALUE GREATER THAN OR EQUAL TO 60 ML/MIN/1.73 SQ METERS. CHRONIC KIDNEY DISEASE: <60mL/MIN/1.73 SQ METERS KIDNEY FAILURE: <15mL/MIN/1.73 SQ METERS Globulin (S) [Mass/Vol] 3.2 g/dL Normal 1.5 - 3.8 g/dL [facility].; [employer] [facility]. Work Phone: Comment on above: Performed By: #### 2 26789 #### [address] [address] Glucose [Mass/Vol] 151 mg/dL Abnormal 74 - 106 mg/dL [facility] CenterT[facility].; [id number] [facility]. Work Phone: Comment on above: Performed By: #### 2 64255 #### [address] [address] Potassium [Moles/Vol] 3.9 mmol/L Normal 3.5 - 5.1 mmol/L [facility].; [employer] [facility]. Work Phone: Comment on above: Performed By: #### 2 40804 #### [facility],[address] [place] [address]67 Protein [Mass/Vol] 5.5 g/dL Abnormal 6.4 - 8.2 g/dL [facility]; [facility]. Work Phone: Comment on above: Performed By: #### 2 90083 #### [facility],[address] [place], [place] [phone] Sodium [Moles/Vol] 137 mmol/L Normal 136 - 145 mmol/L [facility]; [facility]. Work Phone: Comment on above: Performed By: #### 2 23135 #### [address] [address] Urea nitrogen [Mass/Vol] 9 mg/dL Normal 7 - 18 mg/dL [facility]; [facility]. Work Phone: Comment on above: Performed By: #### 2 30110 #### [address] [address] Laboratory - Chemistry and C hemistry - challengeon 03-22-2024 Albumin [Mass/Vol] 0.7 g/dL Abnormal 0.9 - 1.6 [facility]. Work Phone: GFR/1.73 sq M.predicted among blacks MDRD (S/P/Bld) [Vol rate/Area] mL/min/{1.73_m2} Normal 60 - 999 {ML/MINUTE} [facility].; [facility], [facility]. Work Phone: GFR/1.73 sq M.predicted MDRD (S/P/Bld) [Vol rate/Area] mL/min/{1.73_m2} Normal 60 - 999 {ML/MINUTE} [facility].; [facility] Work Phone: Urea nitrogen/Creatinine [Mass ratio] 9 {ratio} Normal 0 - 30 {ratio} [facility].; [employer] [facility] Work Phone: Laboratory - Hematology and Cell countson 03-22-2024 Basophils (Bld) [#/Vol] 0.03 {x10EE3/UL} Normal 0.00 - 0.10 {x10EE3/UL} [facility]; [facility] Work Phone: Eosinophils (Bld) [#/Vol] 0.08 {x10EE3/UL} Normal 0.00 - 0.50 {x10EE3/UL} [facility].; [employer] [facility]. Work Phone: Lymphocytes (Bld) [#/Vol] 0.37 {x10EE3/UL} Abnormal 0.80 - 2.80 {x10EE3/UL} [facility] CenterM[facility]healthZ[facility]; [facility]. Work Phone: MCHC (RBC) [Mass/Vol] 34 {X10_3} Normal 32 - 3 6 {X10_3} [facility].; [facility]. Work Phone: Monocytes (Bld) [#/Vol] 1.27 {x10EE3/UL} Abnormal 0.20 - 1.00 {x10EE3/UL} [facility].; [facility]. Work Phone: Monocytes/100 WBC (Bld) 7.2 % Normal 0.0 - 10.0 % [facility] CenterM[facility]healthZ[facility]; [facility]ENTEROrigin Healthcare Solutions [facility]. Work Phone: Neutrophils (Bld) [#/Vol] 15.82 {x10EE3/UL} Abnormal 1.50 - 7.10 {x10EE3/UL} [facility].; [facility]. Work Phone: Platelets (Bld) [#/Vol] 210 {x10EE3/UL} Normal 150 - 450 {x10EE3/UL} [facility].; [facility]. Work Phone: RBC (Bld) [#/Vol] 4.07 {x_10EE6/UL} Abnormal 4.50 - 6.00 {x_10EE6/UL} [facility].; [facility]. Work Phone: WBC (Bld) [#/Vol] 17.6 {x_10EE3/UL} Abnormal 4.5 - 10.8 {x_10EE3/UL} [facility].; [facility]. Work Phone: No Panel Informationon 03-22 AGE 38 {years} Normal [facility]; [facility] Work Phone: CBC + DIFF DAILY Normal [facility].; [facility] Work Phone: CMP with eGFR - DAILY Normal [facility]; [facility] Work Phone: CBC + DIFFon 03-21-2024 Baso # 0.02 x10EE3/UL Normal 0.00 - 0.10 [facility] Comment on above: Performed By: #### 2 87586 #### [facility],[address] [place] [address] Basophils/100 WBC (Bld) 0.2 % Normal 0.0 - 2.0 [facility] Comment on above: Performed By: #### 2 85580 #### [facility],[address] [place] [address] CBC + DIFF Normal [facility] Comment on above: Result Comment: CBC- COMPLETE BLOOD COUNT Performed By: #### 2 11084 #### [facility],[address] [place] [address] EO # 0.15 x10EE3/UL Normal 0.00 - 0.50 [facility] Comment on above: Performed By: #### 2 19301 #### [facility],[address] [place] [address] Eosinophils/100 WBC (Bld) 1.1 % Normal 0.0 - 7.0 [facility] Comment on above: Performed By: #### 2 73765 #### [facility],[address] [place] [address] Erythrocyte distribution width (RBC) [Ratio] 13.4 % Normal 12.0 - 15.6 [facility] Comment on above: Performed By: #### 2 21631 #### [facility],[address] [place] [address] Hematocrit (Bld) [Volume fraction] 41.2 % Normal 40.0 - 52.0 [facility] Comment on above: Performed By: #### 2 03545 #### [facility],[address] [place] [address] Hemoglobin (Bld) [Mass/Vol] 13.9 g/dL Normal 13.0 - 17.5 [facility] Comment on above: Performed By: #### 2 44797 #### [facility],[address] [place] [address] Lymph # 0.49 x10EE3/UL Low 0.80 - 2.80 [facility] Comment on above: Performed By: #### 2 05936 #### [facility],[address] [place], [place] [phone] Lymphocytes/100 WBC (Bld) 3.5 % Low 20.0 - 45.0 [facility] Comment on above: Performed By: #### 2 08671 #### [facility],[address] [place] [address] MANUAL DIFF N/A Normal [facility] Comment on above: Performed By: #### 2 88425 #### [facility],[address] [place] [address] MCH (RBC) [Entitic mass] 29 pg Normal 27 - 33 [facility] Comment on above: Performed By: #### 2 70347 #### [facility],[address] [place] [address] MCHC 34 X10 3 Normal 32 - 36 [facility] Comment on above: Performed By: #### 2 46950 #### [facility],[address] [place] [address] MCV (RBC) [Entitic vol] 86 fL Normal 81 - 98 [facility] Comment on above: Performed By: #### 2 11929 #### [facility],[address] [place] [address] [place] # 0.92 x10EE3/UL Normal 0.20 - 1.00 [facility] Comment on above: Performed By: #### 2 23491 #### [facility],[address] [place], [place] [id number] MONOS % 6.5 % Normal 0.0 - 10.0 [facility] Comment on above: Performed By: #### 2 85849 #### [facility],[address] [place] [address] Morphology Douglas (Bld) [Interp] N/A Normal [facility] Comment on above: Performed By: #### 2 02673 #### [facility],[address] [place] [address] Neut # 12.57 x10EE3/UL High 1.50 - 7.10 [facility] Comment on above: Performed By: #### 2 36253 #### [facility],[address] [place] [address]335 Neutrophils/100 WBC (Bld) 88.8 % High 46.0 - 76.0 [facility] Comment on above: Performed By: #### 2 96273 #### [facility],[address] [place] [address]3331 PLATELET 222 x10EE3/UL Normal 150 - 450 [facility] Comment on above: Performed By: #### 2 35107 #### [facility],[address] [place] [address] 36549 Platelet mean volume (Bld) [Entitic vol] 7.6 fL Normal 6.4 - 10.5 [facility] Comment on above: Result Comment: AUTO MATED DIFFERENTIAL Performed By: #### 2 09514 #### [facility],[address] [place] [address] 39297 RBC 4.82 x 10EE6/UL Normal 4.50 - 6.00 [facility] Comment on above: Performed By: #### 2 44155 #### [facility],[address] [place] [address]28 WBC 14.2 x 10EE3/UL High 4.5 - 10.8 [facility] Comment on above: Performed By: #### 2 25476 #### [facility],[address] [place] [address] CMP with eGFRon 03-21-2024 AGE 38 years Normal [facility] Comment on above: Performed By: #### 2 58020 #### [facility],[address] [place] [address] Albumin [Mass/Vol] 3.0 g/dL Abnormal 3.4 - 5.0 g/dL [facility].; [facility]. Work Phone: Comment on above: Performed By: #### 2 61742 #### [place] [id number] Albumin/Globulin [Mass ratio] 0.8 {ratio} Low 0.9 - 1.6 [facility] Comment on above: Performed By: #### 2 22568 #### [place] [id number] ALK PHOS 75 U/L Normal 46 - 116 U/L [facility].; [facility]. Work Phone: Comment on above: Performed By: #### 2 60812 #### [address] [address] ALT [Catalytic activity/Vol] 36 U/L Normal 16 - 63 U/L [facility].; [facility], [employer]. Work Phone: Comment on above: Performed By: #### 2 34356 #### [address] [address] Anion gap [Moles/Vol] 11 mmol/L Normal 10 - 2 0 mmol/L [facility].; [facility] [employer] [facility]. Work Phone: Comment on above: Performed By: #### 2 22366 #### [address] [address] AST [Catalytic activity/Vol] 26 U/L Normal 15 - 37 U/L [facility].; [facility], [employer]. Work Phone: Comment on above: Performed By: #### 2 14196 #### [address] [address] B/C RATIO 12 ratio Normal 0 - 30 [facility] Comment on above: Performed By: #### 2 99441 #### [facility],[address] [place] [address] Bilirubin [Mass/Vol] 1.6 mg/dL Abnormal 0.2 - 1 .0 mg/dL [facility], [facility].; [facility] Work Phone: Comment on above: Performed By: #### 2 46511 #### [facility],[address] [place] [address] Calcium [Mass/Vol] 8.7 mg/dL Normal 8.5 - 10. 1 mg/dL [facility].; [facility], [employer]. Work Phone: Comment on above: Performed By: #### 2 72789 #### [facility] [facility],[address] [place] [address] [id number] Chloride [Moles/Vol] 103 mmol/L Normal 98 - 10 7 mmol/L [facility] Work Phone: Comment on above: Performed By: #### 2 [id number] #### [facility],[address] [place] [address] [id number] CMP with eGFR Normal [facility] Comment on above: Result Comment: COMP REHENSIVE METABOLIC PANEL Performed By: #### 2 [id number] #### [facility],[address] [place] [address] 64099 CO2 [Moles/Vol] 27.2 mmol/L Normal 21.0 - 32.0 mmol/L [facility], [facility], [facility]. Work Phone: Comment on above: Performed By: #### 2 [id number] #### [facility],[address] [place] [address] 31812 Creatinine [Mass/Vol] 1.02 mg/dL Normal 0.70 - 1.30 mg/dL [facility] Work Phone: Comment on above: Performed By: #### 2 [id number] #### [facility],[address] [place] [address] 23817 GFR/1.73 sq M.predicted among non-blacks MDRD (S/P/Bld) [Vol rate/Area] mL/min/{1.73_m2} Normal 60 - 999 [facility] Comment on above: Performed By: #### 2 [id number] #### [facility],[address] [place] [address] 39129 Result Comment: ACCO RDING TO THE NATIONAL KIDNEY DISEASE EDUCATION PROGRAM(NKDE), A NORMAL eGFR IS A VALUE GREATER THAN OR EQUAL TO 60 ML/MIN/1.73 SQ METERS. CHRONIC KIDNEY DISEASE: <60mL/MIN/1.73 SQ METERS KIDNEY FAILURE: <15mL/MIN/1.73 SQ METERS THIS TEST SHOULD ONLY BE USED FOR PATIENTS 18 YEARS OF AGE AND OLDER. Globulin (S) [Mass/Vol] 3.8 g/dL Normal 1.5 - 3.8 g/dL [facility] Work Phone: Comment on above: Performed By: #### 2 [id number] #### [facility],[address] [place] [address] 98247 Glucose [Mass/Vol] 98 mg/dL Normal 74 - 106 mg/dL [facility] Work Phone: Comment on above: Performed By: #### 2 [id number] #### [facility],[address] [place] [address] 18378 Potassium [Moles/Vol] 3.3 mmol/L Abnormal 3.5 - 5.1 mmol/L [facility]. Work Phone: Comment on above: Performed By: #### 2 70561 #### [address] [address] Protein [Mass/Vol] 6.8 g/dL Normal 6.4 - 8.2 g/dL [facility].; [facility] Work Phone: Comment on above: Performed By: #### 2 55583 #### [address] [address] Sodium [Moles/Vol] 138 mmol/L Normal 136 - 145 mmol/L [facility] Work Phone: Comment on above: Performed By: #### 2 77534 #### [address] [address] Urea nitrogen [Mass/Vol] 12 mg/dL Normal 7 - 18 mg/dL [facility] Work Phone: Comment on above: Performed By: #### 2 [id number] #### [place] [id number] ABDOMEN/PELVIS [facility] 2023 CT ABDOMEN/PELVIS [place] [address] Patient: JAIR WARREN Phone#: : 1985 Age: 38 Gender: M Pt. Type: ER Account: [id number] Location: 2 Ordering: DR. RACHID REYEZ Exam Date: 03/21/2024/6:41 Family Phys: Charge Code: [id number] Physician: Elbert Order #: [id number] Dose#: [id number] PROCEDURE: CT ABDOMEN/PELVIS WITH CONTRAST COMPARISON: None. INDICATIONS: Abdominal pain. TECHNIQUE: After obtaining the patient's consent, CT images were created with non-ionic intravenous contrast material. All CT scans at this facility use dose modulation, iterative reconstruction, and/or weight based dosing when appropriate to reduce radiation dose to as low as reasonably achievable. IV CONTRAST: Omnipaque 350,80ml TOTAL DOSE: 14.4 CTDIvol(mGy) FINDINGS: LIVER: Normal. No enlargement, atrophy, abnormal density, or significant focal lesion. BILIARY: Normal. No visible dilatation or calcification. PANCREAS: Normal. No lesion, fluid collection, ductal dilatation, or atrophy. SPLEEN: Normal. No enlargement or focal lesion. KIDNEYS: Normal. No mass, obstruction, or calcification. ADRENALS: Normal. No mass or enlargement. AORTA/VASCULAR: Normal. No aneurysm or dissection. RETROPERITONEUM: Normal. No mass or adenopathy. BOWEL/MESENTERY: There is thickening of the appendix at 1.3 centimeters and periappendiceal fat stranding consistent with appendicitis. There is thickening of adjacent small bowel mucosa may be reactive enteritis. There is a 3.2 centimeter pelvic fluid collection and may represent free fluid. Developing abscess cannot be excluded. ABDOMINAL WALL: Normal. No mass or hernia. URINARY BLADDER: Normal. No visible focal wall thickening, lesion, or calculus. PELVIC NODES: Normal. No adenopathy. PELVIC ORGANS: Normal. No visible mass. Pelvic organs appropriate for patient age. BONES: Degenerative changes of the spine are present. No bony lesion or fracture. Continued Report - Page 2 of 2 Patient: JAIR WARREN Phone#: : 1985 Age: 38 Gender: M Pt. Type: ER Account: [id number] Location: 052 Ordering: DR. RACHID REYEZ Exam Date: 03/21/2024/6:41 Family Phys: Charge Code: [id number] Physician: Elbert Order #: [id number] Dose#: 14.4 LUNG BASES: Normal. No visible pulmonary or pleural disease. OTHER: Negative. CONCLUSION: 1. Findings consistent with acute appendicitis. 2. Free fluid versus developing abscess deep in the pelvis. Dictated by: Sienna Maria MD on 03/21/2024 at 9:40 Approved by: Sienna Maria MD on 03/21/2024 at 9:44 Normal [facility] ED MED ADMINISTRATION DETAIL on 03-21-2024 ED MED ADMINISTRATION DETAIL Cartridge Filler Medication Administration Record [place] [address] [place] [address] [phone] 03/21/2024 Patient: JAIR WARREN Sex: Male : 1985 Age: 38y MEASUREMENTS: Wt: 93.0 kg, Ht/Arie: 74.0 in, BMI: 26.32 ALLERGIES: No known drug allergies Medication Ordered Medication Administration Date/Time HYDROmorphone 06:55 12 HYDROmorphone (Dilaudid) IVP 0.5 mg given via Given (Dilaudid) IVP 0.5 Site# 1. Allergies verified and confirmed 5 rights. IV patency 06:55 03/21/2024 mg (NOW x1, HIGH established. IV site checked: no pain, redness, or swelling. IV Bubbaanna Packer, R.N. ALERT flushed thoroughly pre-medication administration. Information Not Scanned MEDICATION) reviewed with patient including reason for taking this medication and sedative warning. Verbalizes understanding. - 06:55 Bubba Packer, R.N. Zofran IVP 4 mg 06:55 03/21 Zofran IVP 4 mg given via Site# 1. Allergies verified Given (NOW x1) and confirmed 5 rights. IV patency established. IV site checked: no 06:55 03/21/2024 pain, redness, or swelling. IV flushed thoroughly pre-medication Bubbaanna Packer, R.N. administration. Information reviewed with patient including reason Scanned for taking this medication. Verbalizes understanding. - 06:55 Bubbaanna Godoyp, R.N. 1 of 3 Cartridge Filler Medication Ordered Medication Administration Date/Time IV NS 0.9 % 1000 07:04 03/21 IV NS 0.9 % 1000 mL started in bag#1 1000 mL at Started mL at 999 mL/hr 999 mL/hr via Site# 1. Allergies verified and confirmed 5 rights. IV 07:04 03/21/2024 (NOW x1) patency established. IV site checked: no pain, redness, or swelling. Bubbaanna Godoyp, R.N. IV flushed thoroughly pre-medication administration. Information Stopped reviewed with patient including reason for taking this medication. 08:04 03/21/2024 Verbalizes understanding. - 07:04 Rona Hawkins R.N. Scanned 08:04 03/21 Medication Discontinued: bag #1 infused. Total amount infused: 1000 mL. IV patency established. IV site checked: no pain, redness, or swelling. IV flushed thoroughly post-medication administration. - 10:30 Kellie Felix R.N. Piperacillin-Tazoba 08:17 03/21 Piperacillin-Tazobac (Zosyn) IVPB 3.375gm/50ml NS Started c (Zosyn) IVPB 3.375 g started at 100 mL/hr diluted in sodium chloride IVPB 0.9 % 08:17 03/21/2024 3.375gm/50ml NS Minibag+ 50 mL via Site# 1. Allergies verified and confirmed 5 Carissa Bryan R.N. 3.375 g diluted in rights. IV patency established. IV site checked: no pain, redness, or Stopped sodium chloride swelling. IV flushed thoroughly pre-medication administration. 08:49 03/21/2024 IVPB 0.9 % Information reviewed with patient. - 08:18 Rona Broderick R.N. Minibag+ 50 mL at Scanned 100 mL/hr (NOW x1) 08:49 03/21 Medication Discontinued: IV infused. Total amount infused: 100 mL. IV patency established. IV site checked: no pain, redness, or swelling. IV flushed thoroughly post-medication administration. - 08:51 Carissa Bryan R.N. Flagyl IVPB Premix 08:17 03/21 Flagyl IVPB Premix 500 mg started at 100 mL/hr via Started 500 mg at 100 Site# 1. Allergies verified and confirmed 5 rights. IV patency 08:17 03/21/2024 mL/hr (NOW x1) established. IV site checked: no pain, redness, or swelling. IV Carissa Bryan R.N. flushed thoroughly pre-medication administration. Information Stopped reviewed with patient. Verbalizes understanding. - 08:18 Carissa 10:28 03/21/2024 Rona Bryan R.N. Scanned 10:28 12/16 Medication Discontinued: IV infused. Total amount infused: 100 mL. IV patency established. IV site checked: no pain, redness, or swelling. IV flushed thoroughly post-medication administration. - 10:31 Carissa Bryan R.N. 2 of 3 Cartridge Filler Medication Ordered Medication Administration Date/Time IV NS 0.9 % 1000 08:16 03/21 IV NS 0.9 % 1000 mL started in bag#1 1000 mL at Started mL at 999 mL/hr 999 mL/hr via Site# 1. Allergies verified and confirmed 5 rights. IV 08:16 03/21/2024 (NOW x1) patency established. IV site checked: no pain, redness, or swelling. Carissa Bryan R.N. IV flushed thoroughly pre-medication administration. Information Stopped reviewed with patient. Verbalizes understanding. - 08:17 Carissa 10:29 03/21/2024 Rona Bryan R.N. Scanned 10:29 03/21 Medication Discontinued: bag #2 infused. Total amount infused: 1000 mL. IV patency established. IV site checked: no pain, redness, or swelling. IV flushed thoroughly post-medication administration. - 10:29 Kellie Felix R.N. HYDROmorphone 09:00 03/21 HYDROmorphone (Dilaudid) IVP 0.5 mg given via Given (Dilaudid) IVP 0.5 Site# 1. Allergies verified and confirmed 5 rights. IV patency 09:00 03/21/2024 mg (NOW x1, HIGH established. IV site checked: no pain, redness, or swelling. IV Carissa Bryan R.N. ALERT flushed thoroughly pre-medication administration. Information Scanned MEDIC (more content not included)... Normal [facility] ED NURSES CLINICAL NOTEon ED NURSES CLINICAL NOTE Nurse Narrative Nurse Clinical [address] [place] [address] [phone] 03/21/2024 Patient: JAIR WARREN Sex: Male : 1985 Age: 38y Disposition: Admit to Surgery via Operating Room Disposition Decision Time: 08:04 03/21/2024 Departure Time: 12:30 03/21/2024 TRIAGE Historian: patient and family. Triage time: 06:15 03/21/2024. Acuity: LEVEL 4. Chief Complaint: ABDOMINAL PAIN and (right sided, painful to palp). Onset. (several months to years, increasing in the past several days). No nausea or vomiting. SEPSIS SCREEN: NEGATIVE. SIRS criteria negative. No possible sources of infection. -- 06:24 03/21/24 ESTEBAN Packer R.N. 06:17 03/21/24. BP: 159/108 MAP: 125. HR: 104. RR: 18. O2 saturation: 97% Temperature: 99.4 F. Pain level now 3/10. (worse with movement). -- 06:18 03/21/24 ESTEBAN Packer R.N. Measurements: 06:24 03/21/24 Wt: 93.0 kg, Ht/Arie: 74.0 in, BMI: 26.32 -- 06:24 03/21/24 ESTEBAN Packer R.N. Medications: no known home medications -- 06:23 03/21/24 ESTEBAN Packer R.N. Allergies: 1 of 5 Nurse Narrative no known drug allergies -- 06:23 03/21/24 ESTEBAN Packer R.N. Problems: Irritable bowel syndrome (disorder) -- 06:23 03/21/24 ESTEBAN Packer R.N. ADDITIONAL SURGERIES: Hernia Repair -- 06:19 03/21/24 ESTEBAN Packer R.N. History 06:15 03/21/24. SOCIAL HX: Never smoker. Occasional alcohol use. No drug use. The patient has not traveled outside the [place] Infectious disease exposure: No infectious disease exposure. ABUSE ASSESSMENT: The patient answered "yes" to the question(s) "Do you feel safe in your home?" and "no" to the question(s) Are you afraid to go home?". SELF HARM ASSESSMENT: Self harm assessment was performed. The patient answered "no" to the question(s) "Have you recently felt down, depressed, or hopeless?" and "Do you have thoughts of harming or killing yourself?". NUTRITIONAL RISK ASSESSMENT: The nutritional risk assessment revealed no deficiencies. FALL RISK ASSESSMENT: Fall risk assessment completed. No risk factors identified. -- 06:24 03/21/24 ESTEBAN Packer R.N. Interventions 06:15 03/21/24. Identification band on patient. -- 06:24 03/21/24 ESTEBAN Packer R.N. PHYSICAL ASSESSMENT 06:28 03/21/24. Ambulatory to room. ( RL abd pain, going on for several months/years, increased pain past several days. Possibly dietary related, pt report increased pain after eating certain foods, pt is unsure which foods. Pt states pain is currently 3/10, increased pain when coughing, moving, bending. States burning when urinating, normal bm yesterday.). GENERAL / NEURO / PSYCH: Alert. Oriented X 4. Appears in pain. 2 of 5 Nurse Narrative RESPIRATORY: Respirations not labored. CVS: Normal sinus rhythm noted. GI / : Abdominal tenderness. -- 06:28 03/21/24 ESTEBAN Packer R.N. NURSING PROGRESS NOTES 06:21 03/21/24. Two patient identifiers checked. Call light placed in reach. Side rails up x 1. Bed placed in lowest position. Brakes of bed on. -- 06:46 03/21/24 ESTEBAN Rogers R.N. 06:40 03/21/24. Site #1 started via IV in the right antecubital space with a 20g angiocath with aseptic technique and good blood return; 1 attempt. Blood drawn: rainbow set tube(s). Labeled in the presence of the patient and sent to the lab. Saline lock flushed with 5 mL saline. -- 06:55 03/21/24 ESTEBAN Packer R.N. 06:55 03/21/24. HYDROmorphone (Dilaudid) IVP 0.5 mg given via Site# 1. Allergies verified and confirmed 5 rights. IV patency established. IV site checked: no pain, redness, or swelling. IV flushed thoroughly pre-medication administration. Information reviewed with patient including reason for taking this medication and sedative warning. Verbalizes understanding. -- 06:55 03/21/24 ESTEBAN Packer R.N. 06:55 03/21/24. Zofran IVP 4 mg given via Site# 1. Allergies verified and confirmed 5 rights. IV patency established. IV site checked: no pain, redness, or swelling. IV flushed thoroughly pre-medication administration. Information reviewed with patient including reason for taking this medication. Verbalizes understanding. -- 06:55 03/21/24 ESTEBAN Packer R.N. 07:04 03/21/24. Care transferred and report given (Carissa JONES). -- 07:04 03/21/24 ESTEBAN Packer R.N. 07:04 03/21/24. IV NS 0.9 % 1000 mL started in bag#1 1000 mL at 999 mL/hr via Site# 1. Allergies verified and confirmed 5 rights. IV patency established. IV site checked: no pain, redness, or swelling. IV flushed thoroughly pre-medication administration. Information reviewed with patient including reason for taking this medication. Verbalizes understanding. -- 07:04 03/21/24 ESTEBAN Packer R.N. 07:53 03/21/24. Reassessment after medication administered. Pain gone now. The patient reports no complaints and the patient is resting quietly. -- 07:56 03/21/24 (more content not included)... Normal [facility] ED ORDER SHEET ([facility] ONLY)on 03-21-2024 ED ORDER SHEET (CPOE ONLY) Order Sheet Order Sheet [address] [place] [address] [id number] 03/21/2024 Patient: JAIR WARREN Sex: Male : 1985 Age: 38y MEASUREMENTS: Wt: 93.0 kg, Ht/Arie: 74.0 in, BMI: 26.32 ALLERGIES: No known drug allergies MEDICATION/IV/DRIP/FLUID ORDERS Order Description Priority Entered Acknowledged Completed HYDROmorphone (Dilaudid) 06:28 03/21/2024 06:40 06:55 IVP0.5 mg (NOW x1, HIGH Rachid Reyez M.D. 03/21/2024 03/21/2024 ALERT MEDICATION) Rona Hawkins R.N. Zofran IVP4 mg (NOW x1) 06:28 03/21/2024 06:40 06:55 Rachid Reyez M.D. 03/21/2024 03/21/2024 Rona Hawkins, R.N. IV NS 0.9 %1000 mL at 999 07:00 03/21/2024 07:04 07:04 mL/hr (NOW x1) Rachid Reyez M.D. 03/21/2024 03/21/2024 Rona Hawkins, R.N. Piperacillin-Tazobac (Zosyn) 07:59 03/21/2024 08:10 08:18 IVPB 3.375gm/50ml NS3.375 g Darryl Rich D.O. 03/21/2024 03/21/2024 diluted in sodium chloride IVPB Carissa Broedrick, 0.9 % Minibag+ 50 mL at 100 R.N. R.N. mL/hr (NOW x1) Reason for ordering with alerts: Clinical consideration given --07:59 03/21/2024 Darryl Rich D.O. Flagyl IVPB [id number] mg at 07:59 03/21/2024 08:10 08:18 1 of 3 Order Sheet 100 mL/hr (NOW x1) Darryl Rich D.O. 03/21/2024 03/21/2024 Carissa Broderick R.N. R.NPao IV NS 0.9 %1000 mL at 999 08:00 03/21/2024 08:10 08:17 mL/hr (NOW x1) Darryl Rich D.O. 03/21/2024 03/21/2024 Carissa Broderick R.NPao R.NPao Reason for ordering with alerts: Benefits outweigh risks --08:00 03/21/2024 Darryl Rich D.O. HYDROmorphone (Dilaudid) 08:52 03/21/2024 08:52 09:00 IVP0.5 mg (NOW x1, HIGH Darryl Rich D.O. 03/21/2024 03/21/2024 ALERT MEDICATION) Carissa Broderick R.NPao R.NPao Reason for ordering with alerts: Clinical consideration given --08:52 03/21/2024 Darryl Rich D.O. Reglan IVP10 mg (NOW x1) 11:56 03/21/2024 11:56 12:04 Darryl Rich D.O. 03/21/2024 03/21/2024 Ana Lilia Pearson, R.N. R.N. Reason for ordering with alerts: Clinical consideration given --11:56 03/21/2024 Darryl Rich D.O. LAB ORDERS Order Description Priority Entered Acknowledged Collected Completed CBC w Diff Stat Stat 06:28 03/21/2024 06:40 03/21/2024 Bubba Baird R.N. M.D. CMP Stat Stat 06:28 03/21/2024 06:40 03/21/2024 Bubba Baird R.N. M.D. Lipase Stat Stat 06:28 03/21/2024 06:40 03/21/2024 2 of 3 Order Sheet Bubba Baird R.N. M.D. Urinalysis Stat Stat 06:28 03/21/2024 06:40 03/21/2024 Bubba Baird R.N. M.D. DIAGNOSTIC STUDY ORDERS Order Description Priority Entered Acknowledged Completed CT ABD/PEL w Cont Stat Stat 06:28 03/21/2024 06:40 Rachid Reyez M.D. 03/21/2024 Bubba Packer RPaoNPao Reason for Study: Abdominal Pain STAFF ORDERS Order Description Priority Entered Acknowledged Collected Completed NPO 08:00 03/21/2024 08:15 03/21/2024 11:53 03/21/2024 Carissa Hinkle Katelyn Horst, D.O. R.N. R.NPao [Electronically signed by Darryl Rich D.O. (03/21/2024 13:32 EST)] [Electronically signed by Rachid Reyez M.D. (03/21/2024 20:34 EST)] 3 of 3 Normal [facility] ED PHYSICIAN CLINICAL REPORT on 03-21-2024 ED PHYSICIAN CLINICAL REPORT Narrative Physician Clinical Narrative [facility] [address] [place] [address] [phone] 03/21/2024 Patient: JAIR WARREN Sex: Male : 1985 Age: 38y Disposition: Admit to Surgery via Operating Room Disposition Decision Time: 08:04 03/21/2024 Departure Time: 12:30 03/21/2024 Measurements Wt: 93.0 kg, Ht/Arie: 74.0 in, BMI: 26.32 Initial Vital Sign Measured Time BP MAP HR RR O2Sat ETCO2 Temp Pain GCS RTS 06:17 03/21/2024 159/108 125 104 18 97% 99.4 F 3 Time Seen: 07:02 03/21/2024. Arrived- By private vehicle. Historian- patient. Independent historian- family. HISTORY OF PRESENT ILLNESS Chief Complaint: ABDOMINAL PAIN. It is described as dull and well localized and it is described as located in the right lower quadrant. No vomiting. The patient has had diarrhea. Similar symptoms previously. Patient has had similar symptoms many times. Recent medical care: Not recently seen/assessed. REVIEW OF SYSTEMS RESPIRATORY: No difficulty breathing. CVS: No chest pain. NEUROLOGICAL: No headache. CONSTITUTIONAL: No fever. The patient has had chills. : No difficulty with urination or pain with urination. GI: No constipation or bloody stools. MUSCULOSKELETAL: No back pain. THROAT: No sore throat. 1 of 12 Narrative PAST HISTORY Left inguinal hernia repair. Irritable bowel syndrome (disorder) Surgeries: Hernia Repair Medications: no known home medications Allergies: no known drug allergies SOCIAL HISTORY No alcohol use or drug use. ADDITIONAL NOTES The nursing notes have been reviewed. PHYSICAL EXAM Vital Signs: Have been reviewed. Appearance: Alert. Oriented X3. No acute distress. Eyes: Eyes normal inspection. CVS: Normal heart rate and rhythm. Respiratory: No respiratory distress. Abdomen: Soft and nontender. Moderate tenderness in the right lower quadrant. No Montelongo's sign present. Skin: Skin warm and dry. Normal skin color. Extremities: Extremities exhibit normal ROM. Neuro: Oriented X 3. LABS, X-RAYS, AND EKG Laboratory Tests: 2 of 12 Narrative CBC + DIFF Final SANTIAGO: 03/21/2024 06:30:00 EST MsgRcvd: 03/21/2024 06:45 EST Lab Test Result Reference Status Received Comments 03/21/2024 06:45 CBC-COMPLETE CBC + DIFF Final EST BLOOD COUNT 14.2 x 10/UL 03/21/2024 06:45 WBC 4.5 - 10.8 Final Above high normal EST 03/21/2024 06:45 RBC 4.82 x 10/UL 4.50 - 6.00 Final EST 03/21/2024 06:45 HEMOGLOBIN 13.9 g/dl 13.0 - 17.5 Final EST 03/21/2024 06:45 HEMATOCRIT 41.2 % 40.0 - 52.0 Final EST 03/21/2024 06:45 MCV 86 fl 81 - 98 Final EST 03/21/2024 06:45 MCH 29 pg 27 - 33 Final EST 03/21/2024 06:45 MCHC 34 X10 3 32 - 36 Final EST 03/21/2024 06:45 RDW/CV 13.4 % 12.0 - 15.6 Final EST 03/21/2024 06:45 PLATELET 222 x10/UL 150 - 450 Final EST 03/21/2024 06:45 AUTOMATED MPV 7.6 fl 6.4 - 10.5 Final EST DIFFERENTIAL 88.8 % 03/21/2024 06:45 NEUT % 46.0 - 76.0 Final Above high normal EST 3 of 12 Narrative 3.5 % 03/21/2024 06:45 LYMPH % 20.0 - 45.0 Final Below low normal EST 03/21/2024 06:45 MONOS % 6.5 % 0.0 - 10.0 Final EST 03/21/2024 06:45 EO % 1.1 % 0.0 - 7.0 Final EST 03/21/2024 06:45 BASO % 0.2 % 0.0 - 2.0 Final EST 0.49 x10/UL 03/21/2024 06:45 Lymph # 0.80 - 2.80 Final Below low normal EST 12.57 x10/UL 03/21/2024 06:45 Neut # 1.50 - 7.10 Final Above high normal EST 03/21/2024 06:45 [place] # 0.92 x10/UL 0.20 - 1.00 Final EST 03/21/2024 06:45 EO # 0.15 x10/UL 0.00 - 0.50 Final EST 03/21/2024 06:45 Baso # 0.02 x10/UL 0.00 - 0.10 Final EST 03/21/2024 06:45 MANUAL DIFF N/A New Order EST 03/21/2024 06:45 MORPHOLOGY N/A New Order EST CMP with eGFR Final SANTIAGO: 03/21/2024 06:30:00 EST MsgRcvd: 03/21/2024 07:17 EST Lab Test Result Reference Status Received Comments 4 of 12 Narrative COMPREHENSIVE 03/21/2024 CMP with eGFR Final METABOLIC 07:17 EST PANEL 03/21/2024 SODIUM 138 mmol/l 136 - 145 Final 07:17 EST 3.3 mmol/L 03/21/2024 POTASSIUM 3.5 - 5.1 Final Below low normal 07:17 EST 03/21/2024 CHLORIDE 103 mmol/L 98 - 107 Final 07:17 EST 03/21/2024 CO2 27.2 mmol/L 21.0 - 32.0 Final 07:17 EST 03/21/2024 GLUCOSE 98 mg/dl 74 - 106 Final 07:17 EST 03/21/2024 BUN 12 mg/dl 7 - 18 Final 07:17 EST 03/21/2024 CREATININE 1.02 mg/dl 0.70 - 1.30 Final 07:17 EST 03/21/2024 AST/SGOT 26 U/L 15 - 37 Final 07:17 EST 03/21/2024 ALK PHOS 75 U/L 46 - 116 Final 07:17 EST 03/21/2024 CALCIUM 8.7 mg/dl 8.5 - 10.1 Final 07:17 EST TOTAL 03/21/2024 6.8 g/dl 6.4 - 8.2 Final PROTEIN 07:17 EST 3.0 g/dL 03/21/2024 ALBUMIN 3.4 - 5.0 Final Below low normal 07:17 EST of Narrative (more content not included)... Normal [facility] ED SUPER BILLon 03-21-2024 ED SUPER BILL [facility] [address] [place] [address] [phone] 03/21/2024 Patient: JAIR WARREN Sex: Male : 1985 Age: 38y Facility Professional Category Item Description Code Code Quantity Fee Total Drugs Normal Saline 395617 2 $0.00 $0.00 1000cc (207034) Nurse/E/M EMERGENCY 863285 1 $0.00 $0.00 DEPT VISIT HIGH SEVERITYFUNCJ (38570-76) Nurse/IV/IM/Infusions Drip/IVPB 008437 1 $0.00 $0.00 concurrent (96420) Nurse/IV/IM/Infusions Drip/IVPB initial 810521 1 $0.00 $0.00 (81179) Nurse/IV/IM/Infusions Hydration 074616 1 $0.00 $0.00 additional hour (83503) Nurse/IV/IM/Infusions IVP additional 235483 3 $0.00 $0.00 push (79959) Nurse/IV/IM/Infusions IVP same med 196330 1 $0.00 $0.00 (31 min apart) (45340) 1 of 2 [facility] Professional Category Item Description Code Code Quantity Fee Total Grand $0.00 Total Providers Jose Baird D.O. Chief Complaints Abdominal pain. ABDOMINAL PAIN. Principal Diagnosis Acute appendicitis with abscess. ICD-10 Codes K35.30: Acute appendicitis with localized peritonitis, without perforation or gangrene 2 of 2 [facility] ED VISIT SUMMARYon ED VISIT SUMMARY Visit Overview Visit Overview [address] [address] [id number] 03/21/2024 Patient: JAIR WARREN Sex: Male : 1985 Age: 38y 03/21/2024 08:34 PM EST ED Arrival:06:16 03/21/2024 EST Status: Recent Travel:no Language:eng Adv Directive: Isolation Status: Ethnicity:N Fall Risk:no risk Infectious Disease Exposure:no Measurements:6'2" / 188.0 Self-Harm Status:risk Sepsis Screen:negative cm 205.0 lb / 93.0 kg Chief Complaint:ABDOMINAL PAIN, (right sided, painful to palp), and (several months to years, increasing in the past several days) ALLERGIES No Known Drug Allergies HOME MEDICATIONS None PAST MEDICAL HISTORY / PROBLEMS 3 Visit Overview Irritable bowel syndrome (disorder) PAST SURGICAL HISTORY Hernia Repair SOCIAL HISTORY Nutritional assessment: No deficits Smoking status: No Alcohol use: Yes Drug use: No ED COURSE MEDICATIONS GIVEN IN EMERGENCY DEPARTMENT 06:55 03/21/24 HYDROmorphone (Dilaudid) IVP 0.5 mg 06:55 03/21/24 Zofran IVP 4 mg 07:04 03/21/24 IV NS 0.9 % 1000 mL 999 mL/hr 08:16 03/21/24 IV NS 0.9 % 1000 mL 999 mL/hr Piperacillin-Tazobac (Zosyn) IVPB 3.375gm/50ml NS 3.375 g diluted in sodium 08:17 03/21/24 chloride IVPB 0.9 % Minibag+ 50 mL 100 mL/hr 08:17 03/21/24 Flagyl IVPB Premix 500 mg 100 mL/hr 09:00 03/21/24 HYDROmorphone (Dilaudid) IVP 0.5 mg 12:01 03/21/24 Reglan IVP 10 mg IV SITE INFORMATION 06:40 03/21/24 Site #1 right AC, 20g. Saline lock. INTAKE OUTPUT Total Urine 250 mL TOTAL OUTPUT 250 mL REASSESMENT (most recent) 07:53 03/21/24. Reassessment after medication administered. Pain gone now. The patient reports no complaints and the patient is resting quietly. 3 Visit Overview VITAL SIGNS First Vitals Last Vitals Temp 06:17 03/21/24 99.4 F Temp 12:23 03/21/24 BP 06:17 03/21/24 159/108 BP 12:23 03/21/24 HR 06:17 03/21/24 104 HR 12:23 03/21/24 90 RR 06:17 03/21/24 18 RR 12:23 03/21/24 O2 Sat 06:17 03/21/24 97% O2 Sat 12:23 03/21/24 96% Pain 06:17 03/21/24 3 Pain 12:23 03/21/24 ETCO2 06:17 03/21/24 ETCO2 12:23 03/21/24 GCS 06:17 03/21/24 GCS 12:23 03/21/24 RTS 06:17 03/21/24 RTS 12:23 03/21/24 PROCEDURES NURSING INTERVENTIONS LABS / STUDIES LABS / STUDIES ORDERED CBC w Diff CMP CT ABD/PEL w Cont Lipase Urinalysis CLINICAL IMPRESSION ACUTE APPENDICITIS WITH ABSCESS 3 of 3 Normal [facility] ED VITALS FLOW SHEETon 03-21 ED VITALS FLOW SHEET Vitals Vital Sign Flow Sheet [facility] [address] [place] [address] [id number] 03/21/2024 Patient: JAIR WARREN Sex: Male : 1985 Age: 38y Measurements Wt: 93.0 kg, Ht/Arie: 74.0 in, BMI: 26.32 Measured Time BP MAP HR RR O2Sat ETCO2 Temp Pain GCS RTS 12:23 03/21/2024 90 96% 12:18 03/21/2024 86 95% 12:17 03/21/2024 145/102 116 83 12:13 03/21/2024 106 95% 12:08 03/21/2024 92 99% 12:03 03/21/2024 86 95% 11:58 03/21/2024 95 97% 11:53 03/21/2024 81 95% 11:48 03/21/2024 83 94% 11:46 03/21/2024 135/94 107 84 11:43 03/21/2024 82 95% 11:38 03/21/2024 86 97% 11:33 03/21/2024 83 96% 11:28 03/21/2024 89 97% 11:23 03/21/2024 87 97% 1 of 3 Vitals Measured Time BP MAP HR RR O2Sat ETCO2 Temp Pain GCS RTS 11:18 03/21/2024 88 95% 11:16 03/21/2024 142/98 109 98 11:13 03/21/2024 83 94% 11:03 03/21/2024 85 95% 10:58 03/21/2024 85 95% 10:53 03/21/2024 90 96% 10:48 03/21/2024 91 97% 10:46 03/21/2024 138/100 111 93 10:43 03/21/2024 92 98% 10:38 03/21/2024 84 97% 10:33 03/21/2024 86 97% 10:23 03/21/2024 88 97% 10:18 03/21/2024 91 96% 10:16 03/21/2024 140/99 109 87 10:13 03/21/2024 98 97% 10:08 03/21/2024 97 97% 10:03 03/21/2024 102 96% 09:58 03/21/2024 92 94% 09:53 03/21/2024 101 97% 09:48 03/21/2024 94 97% 09:46 03/21/2024 137/97 106 87 09:43 03/21/2024 95 96% 09:38 03/21/2024 96 96% 09:33 03/21/2024 94 96% 09:28 03/21/2024 93 95% 2 of 3 Vitals Measured Time BP MAP HR RR O2Sat ETCO2 Temp Pain GCS RTS 09:23 03/21/2024 85 96% 09:18 03/21/2024 88 95% 09:16 03/21/2024 145/96 111 89 09:13 03/21/2024 94 97% 09:08 03/21/2024 91 95% 09:03 03/21/2024 90 96% 08:58 03/21/2024 89 98% 08:48 03/21/2024 87 97% 08:46 03/21/2024 144/100 111 86 08:43 03/21/2024 90 97% 08:38 03/21/2024 93 99% 08:33 03/21/2024 92 97% 08:28 03/21/2024 94 97% 08:23 03/21/2024 89 98% 08:18 03/21/2024 88 96% 08:16 03/21/2024 155/102 119 88 08:13 03/21/2024 88 98% 08:08 03/21/2024 91 97% 08:03 03/21/2024 89 98% 07:58 03/21/2024 101 98% 07:54 03/21/2024 140/101 113 90 06:17 03/21/2024 159/108 125 104 18 97% 99.4 F 3 3 of 3 Normal [facility] LIPASEon 03-21-2024 Lipase [Catalytic activity/Vol] 63.0 U/L Normal 15.0 - 78.0 U/L [facility]. Work Phone: Comment on above: Result Comment: *PLE ASE NOTE THAT RANGES FOR LIPASE HAVE CHANGED OF 04/03/23 DUE TO AN ASSAY UPDATE BY THE MOBILITY DEVELOPER.THE NEW ASSAY RANGE IS 6-250 U/L, WITH A REFERENCE RANGE OF 16-77 U/L. Performed By: #### [id number] #### [facility],[address] [place] [address] Laboratory - Chemistry and C hemistry - challengeon 03-21-2024 Albumin [Mass/Vol] 0.8 g/dL Abnormal 0.9 - 1.6 [facility].; [facility]. Work Phone: Bilirubin [Mass/Vol] Negative Normal [facility]. Work Phone: GFR/1.73 sq M.predicted among blacks MDRD (S/P/Bld) [Vol rate/Area] mL/min/{1.73_m2} Normal 60 - 999 {ML/MINUTE} [facility].; [facility]. Work Phone: GFR/1.73 sq M.predicted MDRD (S/P/Bld) [Vol rate/Area] mL/min/{1.73_m2} Normal 60 - 999 {ML/MINUTE} [facility].; [facility] [employer] [facility], [employer]. Work Phone: Glucose [Mass/Vol] NORM Normal [facility].; [employer] [facility]. Work Phone: pH (Bld) 7 [pH] Normal [facility].; [facility]. Work Phone: Protein [Mass/Vol] 15 g/dL Abnormal [facility].; [facility], [facility]. Work Phone: Urea nitrogen/Creatinine [Mass ratio] 12 {ratio} Normal 0 - 30 {ratio} [facility].; [facility]. Work Phone: Laboratory - Hematology and Cell countson 03-21-2024 WBC (Bld) [#/Vol] Negative Normal [facility].; [facility], [facility]. Work Phone: Laboratory - Specimen inform ationon 03-21-2024 Specimen type Nom (Spec) R Normal [facility].; [facility]. Work Phone: No Panel Informationon 03-21 AGE 38 {years} Normal [facility].; [facility] Work Phone: Blood Negative Normal [facility].; [facility] Work Phone: CMP with eGFR Normal [facility]; [facility] Hospital[facility] Work Phone: URINALYSISon 03-21-2024 Bilirubin Ql (U) Negative Normal NORMAL: NEGATIVE [facility] Comment on above: Performed By: #### [id number] #### [facility],[address] [place] [address] Clarity (U) clear Normal [facility].; [facility]. Work Phone: Comment on above: Performed By: #### [id number] #### [facility],[address] [place] [id number] Color (U) yellow Normal [facility].; [facility]. Work Phone: Comment on above: Performed By: #### 2 [id number] #### [facility],[address] [place] [phone] Glucose Ql (U) NORM Normal NORMAL: NORMAL [facility] Comment on above: Performed By: #### 2 [id number] #### [facility],[address] [place] [phone] Hemoglobin Ql (U) Negative Normal NORMAL: NEGATIVE [facility] Comment on above: Performed By: #### 2 [id number] #### [facility],[address] [place] [id number] Ketone 5 Abnormal [facility] [employer].; [facility]. Work Phone: Comment on above: Performed By: #### 2 [id number] #### [facility],[address] [place] [phone] Leukocytes Negative Normal NORMAL: NEGATIVE [facility] Comment on above: Performed By: #### 2 [id number] #### [facility],[address] [place] [address] Nitrite Ql (U) Negative Normal [facility].; [facility] Work Phone: Comment on above: Performed By: #### 2 [id number] #### [facility],[address] [place] [phone] pH (U) 7 [pH] Normal NORMAL: 5.0-8.0 [facility] Comment on above: Performed By: #### 2 [id number] #### [facility],[address] [place] [address] Protein Ql (U) 15 Abnormal NORMAL: NEGATIVE [facility] Comment on above: Performed By: #### 2 [id number] #### [facility],[address] [place] [address] Sp Orient 1.010 Normal [facility], [facility].; [facility], [employer]. Work Phone: Comment on above: Performed By: #### 2 [id number] #### [facility],[address] [place] [address] Specimen Type R Normal [facility] Comment on above: Performed By: #### 2 [id number] #### [facility],[address] [place] [address] Urobilinog NORM Normal [facility], [facility].; [facility], [employer]. Work Phone: Comment on above: Performed By: #### 2 [id number] #### [facility],[address] [place] [address] Laboratory - Chemistry and C hemistry - challengeon 06-23-2022 Albumin [Mass/Vol] 3.6 g/dL Normal 3.4 - 5.0 g/dL [facility], [facility].; [facility], [facility]. Albumin [Mass/Vol] 1.1 g/dL Normal 0.9 - 1.6 [facility], [facility].; [facility], [facility]. ALT [Catalytic activity/Vol] 49 U/L Normal 16 - 63 U/L [facility], [facility].; [facility], [facility]. Anion gap [Moles/Vol] 12 mmol/L Normal 10 - 2 0 mmol/L [facility], [facility].; [facility], [facility]. AST [Catalytic activity/Vol] 31 U/L Normal 15 - 37 U/L [facility], [facility].; [facility], [facility]. Bilirubin [Mass/Vol] 1.6 mg/dL Abnormal 0.2 - 1 .0 mg/dL [facility], [facility].; [facility], [facility] Calcium [Mass/Vol] 8.8 mg/dL Normal 8.5 - 10. 1 mg/dL [facility].; [facility] Chloride [Moles/Vol] 101 mmol/L Normal 98 - 10 7 mmol/L [facility]; [facility] CO2 [Moles/Vol] 27.4 mmol/L Normal 21.0 - 32.0 mmol/L [facility]; [facility], [facility] Creatinine [Mass/Vol] 0.97 mg/dL Normal 0.70 - 1.30 mg/dL [facility].; [facility] CRP [Mass/Vol] 4.40 mg/dL Abnormal 0.00 - 0.90 mg/dL [facility].; [facility], [facility] GFR/1.73 sq M.predicted among blacks MDRD (S/P/Bld) [Vol rate/Area] mL/min/{1.73_m2} Normal 60 - 999 {ML/MINUTE} [facility].; [facility], [facility]. GFR/1.73 sq M.predicted MDRD (S/P/Bld) [Vol rate/Area] mL/min/{1.73_m2} Normal 60 - 999 {ML/MINUTE} [facility].; [facility], [facility]. Globulin (S) [Mass/Vol] 3.2 g/dL Normal 1.5 - 3.8 g/dL [facility].; [facility], [facility]. Glucose [Mass/Vol] 115 mg/dL Abnormal 74 - 106 mg/dL [facility].; [facility], [facility]. Potassium [Moles/Vol] 3.9 mmol/L Normal 3.5 - 5.1 mmol/L [facility].; [facility], [facility] Protein [Mass/Vol] 6.8 g/dL Normal 6.4 - 8.2 g/dL [facility]; [facility] Sodium [Moles/Vol] 136 mmol/L Normal 136 - 145 mmol/L [facility]; [facility] Urea nitrogen [Mass/Vol] 11 mg/dL Normal 7 - 18 mg/dL [facility]; [facility] Urea nitrogen/Creatinine [Mass ratio] 11 {ratio} Normal 0 - 30 {ratio} [facility].; [facility] Laboratory - Hematology and Cell countson 06-23-2022 Basophils (Bld) [#/Vol] 0.00 {x10EE3/UL} Normal 0.00 - 0.10 {x10EE3/UL} [facility]; [facility] Basophils/100 WBC (Bld) 0.5 % Normal 0.0 - 2.0 % [facility]; [facility] Eosinophils (Bld) [#/Vol] 0.00 {x10EE3/UL} Normal 0.00 - 0.50 {x10EE3/UL} [facility]; [facility] Eosinophils/100 WBC (Bld) 0.0 % Normal 0.0 - 7.0 % [facility].; [facility] Erythrocyte distribution width (RBC) [Ratio] 14.2 % Normal 12.0 - 15.6 % [facility]; [facility] Hematocrit (Bld) [Volume fraction] 41.1 % Normal 40.0 - 52.0 % [facility]; [facility] Hemoglobin (Bld) [Mass/Vol] 13.9 g/dL Normal 13.0 - 17.5 g/dL [facility].; [facility] Lymphocytes (Bld) [#/Vol] 0.20 {x10EE3/UL} Abnormal 0.80 - 2.80 {x10EE3/UL} [facility], [employer]. Lymphocytes/100 WBC (Bld) 3.2 % Abnormal 20.0 - 45.0 % [facility], Inc[employer] MCH (RBC) [Entitic mass] 28 pg Normal 27 - 33 pg [facility].; [facility], Inc[employer] MCHC (RBC) [Mass/Vol] 34 {X10_3} Normal 32 - 3 6 {X10_3} [facility], [employer].; [facility], [employer]. MCV (RBC) [Entitic vol] 83 fL Normal 81 - 98 fL [facility].; [facility], Inc[employer] Monocytes (Bld) [#/Vol] 0.40 {x10EE3/UL} Normal 0.20 - 1.00 {x10EE3/UL} [facility], Inc[employer] Monocytes/100 WBC (Bld) 6.6 % Normal 0.0 - 10.0 % [facility] [employer], [employer]. Morphology Douglas (Bld) [Interp] N/A Normal [facility], [employer]. Neutrophils (Bld) [#/Vol] 5.90 {x10EE3/UL} Normal 1.50 - 7.10 {x10EE3/UL} [facility] [place] [facility].; [facility], Inc[employer] Neutrophils/100 WBC (Bld) 89.7 % Abnormal 46.0 - 76.0 % [facility].; [facility] [employer] Platelet mean volume (Bld) [Entitic vol] 9.3 fL Normal 6.4 - 10.5 fL [facility].; [facility] [employer], [employer]. Platelets (Bld) [#/Vol] 162 {x10EE3/UL} Normal 150 - 450 {x10EE3/UL} [employer] [facility], [employer]. RBC (Bld) [#/Vol] 4.94 {x_10EE6/UL} Normal 4.50 - 6.00 {x_10EE6/UL} [facility], Inc.; [facility], [employer]. WBC (Bld) [#/Vol] 6.6 {x_10EE3/UL} Normal 4.5 - 10.8 {x_10EE3/UL} [facility] Center[facility].; [facility], [employer]. No Panel Informationon 06-23 AGE 37 {years} Normal [employer] [facility].; [facility], [employer]. ALK PHOS 83 U/L Normal 46 - 116 U/L [facility], [employer]. CBC + DIFF Normal [facility], [employer]. CMP with eGFR Normal [employer] [facility], [employer]. MANUAL DIFF N/A Normal [facility].; [facility], [employer]. OCCULT BLOOD, FECES, SINGLE (IN OFFICE) Positive Abnormal [employer] [facility], [employer]. No Panel Informationon 04-02 VAS DEFERENS (STERILIZATION) See Note Normal [employer] [facility], [employer]. Work Phone: Vital Signs Date Time Vital Sign Value Performing Clinician Facility 01-09-2025 11:17040 Body height 182.88 cm [facility]. 01-09-2025 11:17-040 Body mass index (BMI) [Ratio] 28.62 kg/m2 [facility] [place] [facility]. 01-09-2025 11:17-0400 Body surface area Derived from formula 2.18 m2 BRITTANY CARMICHAEL CONSTRUCTION PERSON-C [facility], [facility].; [facility], [facility]. 01-09-2025 11:17-0400 Body weight 95.71 kg BRITTANY CARMICHAEL CONSTRUCTION PERSON-C [facility], [facility].; [facility], [facility]. 01-09-2025 11:17-0400 Diastolic blood pressure 77 mm[Hg] BRITTANY CARMICHAEL CONSTRUCTION PERSON-C [facility], [facility].; [facility], [facility]. Comment on above: Patient Position: Sitting; Cuff Location : Left Arm; Cuff Size: Large 01-09-2025 11:17-0400 Heart rate 69 /min BRITTANY CARMICHAEL [facility], [employer].; [facility], [facility]. Comment on above: Pattern: Regular 01-09-2025 11:17-0400 Systolic blood pressure 112 mm[Hg] BRITTANY CARMICHAEL [facility]-C [facility], Inc.; [facility], [facility]. Comment on above: Patient Position: Sitting; Cuff Location : Left Arm; Cuff Size: Large 12-26-2024 10:48-0400 Body height 185.[address] Aman Diop MD Work Phone: [facility] 12-26-2024 10:48-0400 Body mass index (BMI) [Ratio] 27.6 kg/m2 Dr. Aman Diop MD Work Phone: [facility] 12-26-2024 10:48-0400 Body temperature 98.4 [degF] Dr. Aman Diop MD Work Phone: [facility] 12-26-2024 10:48-0400 Body weight 95.[address] Aman Diop MD Work Phone: [facility] 12-26-2024 10:48-0400 Diastolic blood pressure 81 mm[Hg] Dr. Aman Diop MD Work Phone: [facility] 12-26-2024 10:48-0400 Heart rate 66 /min Dr. Aman Diop MD Work Phone: [facility] 12-26-2024 10:48-0400 Respiratory rate 16 /min Dr. Aman Diop MD Work Phone: [facility] 12-26-2024 10:48-0400 SaO2% (BldA) [Mass fraction] 98 % Dr. Aman Diop MD Work Phone: [facility] 12-26-2024 10:48-0400 Systolic blood pressure 120 mm[Hg] Dr. Aman Diop MD Work Phone: [facility] 08-17-2024 10:49-0400 Body weight 92.[address] Jennifer Warren MD Work Phone: [phone] [place] [address] 08-17-2024 10:49-0400 Diastolic blood pressure 91 mm[Hg] Dr. Jennifer Warren MD Work Phone: [facility] 08-17-2024 10:49-0400 Heart rate 79 /min Dr. Jennifer Warren MD Work Phone: [facility] 08-17-2024 10:49-0400 Respiratory rate 17 /min Dr. Jennifer Warren MD Work Phone: [facility] 08-17-2024 10:49-0400 SaO2% (BldA) [Mass fraction] 98 % Dr. Jennifer Warren MD Work Phone: [facility] 08-17-2024 10:49-0400 Systolic blood pressure 137 mm[Hg] Dr. Jennifer Warren MD Work Phone: [facility] 07-14-2024 08:00-0400 Body temperature 97.5 [degF] Dr. Jennifer Warren MD Work Phone: [facility] 07-14-2024 08:00-0400 Diastolic blood pressure 86 mm[Hg] Dr. Jennifer Warren MD Work Phone: [facility] 07-14-2024 08:00-0400 Heart rate 83 /min Dr. Jennifer Warren MD Work Phone: [facility] 07-14-2024 08:00-0400 Respiratory rate 16 /min Dr. Jennifer Warren MD Work Phone: [facility] 07-14-2024 08:00-0400 SaO2% (BldA) [Mass fraction] 97 % Dr. Jennifer Warren MD Work Phone: [phone] [place] [address] 07-14-2024 08:00-0400 Systolic blood pressure 117 mm[Hg] Dr. Jennifer Warren MD Work Phone: [phone] [place] [address] 07-14-2024 06:12-0400 Body height 185.[address] Jennifer Warren MD Work Phone: [phone] [place] [address] 07-14-2024 06:12-0400 Body mass index (BMI) [Ratio] 26.6 kg/m2 Dr. Jennifer Warren MD Work Phone: [facility] 07-14-2024 06:12-0400 Body weight 91.[address] Jennifer Warren MD Work Phone: [facility] 07-04-2024 10:28-0400 Body height 182.88 cm [facility]ANY [facility]Mer[facility]One [facility], [facility].; [facility], [facility]. 07-04-2024 10:28-0400 Body mass index (BMI) [Ratio] 27.72 kg/m2 BRITTANY MARKELFANY [facility], [facility].; [facility], [facility]. 07-04-2024 10:28-0400 Body surface area Derived from formula 2.15 m2 [facility], [facility].; [facility], [facility]. 07-04-2024 10:28-0400 Body temperature 98.5 [degF] [facility], [facility].; [facility], [facility]. Comment on above: Method: Oral 07-04-2024 10:[id number] Body weight 92.7 kg BRITTANY eTecER CONSTRUCTION PERSON-C [facility], Inc.; [facility], Inc. 07-04-2024 10:280400 Diastolic blood pressure 102 mm[Hg] BRITTANY PURDYTTER CONSTRUCTION PERSON-C [facility], Inc.; [employer] [facility], Inc[facility] Comment on above: Patient Position: Sitting; Cuff Location : Left Arm; Cuff Size: Standard 07-04-2024 10:280400 Heart rate 54 /min [facility] NORTHSherpaaER CONSTRUCTION PERSON-C [facility], Inc.; [facility], Inc[facility] Comment on above: Pattern: Regular 07-04-2024 10:28040 Inhaled oxygen concentration 21 % [facility] NORTHSherpaaTTER CONSTRUCTION PERSON-C [facility], Inc.; [employer] [facility], [employer]. Comment on above: Room air 07-04-2024 10:280400 SaO2% (BldA) [Mass fraction] 98 % BRITTANY [facility], Inc.; [facility], Inc. 07-04-2024 10:28-0400 Systolic blood pressure 169 mm[Hg] BRITTANY [facility]OSP[facility]ALSherpaaER CONSTRUCTION PERSON-C [facility] CenterM[facility] On Me Inc.; [facility], Inc. Comment on above: Patient Position: Sitting; Cuff Location : Left Arm; Cuff Size: Standard 06-20-2024 15:100400 Body height 187.96 cm Dr. Jennifer Warren MD Work Phone: [facility] 06-20-2024 15:10-0400 Body mass index (BMI) [Ratio] 26 kg/m2 Dr. Jennifer Warren MD Work Phone: [facility] 06-20-2024 15:10-0400 Body weight 92.[address] Jennifer Warren MD Work Phone: [facility] 06-20-2024 15:10-0400 Diastolic blood pressure 99 mm[Hg] Dr. Jennifer Warren MD Work Phone: 5(118)682-409207 [place] [address] 06-20-2024 15:10-0400 Heart rate 89 /min Dr. Jennifer Warren MD Work Phone: 1(311)593-937407 [place] [address] 06-20-2024 15:10-0400 Respiratory rate 18 /min Dr. Jennifer Warren MD Work Phone: 1(152)459-119807 [place] [address] 06-20-2024 15:10-0400 SaO2% (BldA) [Mass fraction] 98 % Dr. Jennifer Warren MD Work Phone: 7(012)538-718107 [place] [address] 06-20-2024 15:10-0400 Systolic blood pressure 148 mm[Hg] Dr. Jennifer Warren MD Work Phone: 3(810)362-029107 [place] [address] 06-13-2024 12:07-0400 Diastolic blood pressure 115 mm[Hg] Dr. Jennifer Warren MD Work Phone: 6(836)357-609007 [place] [address] 06-13-2024 12:07-0400 Heart rate 78 /min Dr. Jennifer Warren MD Work Phone: 9(060)739-155907 [place] [address] 06-13-2024 12:07-0400 Respiratory rate 18 /min Dr. Jennifer Warren MD Work Phone: 1(513)216-637007 [place] [address] 06-13-2024 12:07-0400 SaO2% (BldA) [Mass fraction] 100 % Dr. Jennifer Warren MD Work Phone: 9(597)034-126707 [place] [address] 06-13-2024 12:07-0400 Systolic blood pressure 169 mm[Hg] Dr. Jennifer Warren MD Work Phone: 4(428)938-804507 [place] [address] 06-13-2024 11:00-0400 Body height 187.[address] Jennifer Warren MD Work Phone: 8(593)553-657507 [place] [address] 06-13-2024 11:00-0400 Body mass index (BMI) [Ratio] 25 kg/m2 Dr. Jennifer Warren MD Work Phone: 5(300)260-504807 [place] [address] 06-13-2024 11:00-0400 Body temperature 97.4 [degF] Dr. Jennifer Warren MD Work Phone: 4(375)429-588907 [place] [address] 06-13-2024 11:00-0400 Body weight 88.[address] Jennifer Warren MD Work Phone: 5(233)396-093207 [place] [address] 05-03-2024 15:05-0500 Body mass index (BMI) [Ratio] 26.2 kg/m2 Dr. Jennifer Warren MD Work Phone: 2(148)373-168007 [place] [address] 05-03-2024 15:05-0500 Body weight 92.[address] Jennifer Warren MD Work Phone: 4(599)151-982707 [place] [address] 05-03-2024 15:05-0500 Diastolic blood pressure 102 mm[Hg] Dr. Jennifer Warren MD Work Phone: 3(136)442-523107 [place] [address] 05-03-2024 15:05-0500 Heart rate 78 /min Dr. Jennifer Warren MD Work Phone: 5(449)625-885807 [place] [address] 05-03-2024 15:05-0500 Respiratory rate 16 /min Dr. Jennifer Warren MD Work Phone: 3(344)438-801507 [place] [address] 05-03-2024 15:05-0500 SaO2% (BldA) [Mass fraction] 98 % Dr. Jennifer Warren MD Work Phone: 9(190)081-342607 [place] [address] 05-03-2024 15:05-0500 Systolic blood pressure 148 mm[Hg] Dr. Jennifer Warren MD Work Phone: 1(541)294-558707 [place] [address] 06-23-2022 16:25-0400 Body height 182.88 cm [facility]ANY [facility], [facility]. 06-23-2022 16:25-0400 Body mass index (BMI) [Ratio] 28.48 kg/m2 BRITTANY MARKELSTEPHONMercyOne Siouxland Medical CenterMunch On Me [facility].; [facility]. 06-23-2022 16:25-0400 Body surface area Derived from formula 2.18 m2 BRITTANY JANY [facility], [facility].; [facility] 06-23-2022 16:25-0400 Body temperature 99.3 [degF] BRITTANY CARMICHAEL CONSTRUCTION PERSON-C [facility], Inc.; [facility], Inc[facility] Comment on above: Method: Oral 06-23-2022 16:25-0400 Body weight 95.26 kg BRITTANY CARMICHAEL [facility], Inc.; [facility] 06-23-2022 16:25-0400 Diastolic blood pressure 87 mm[Hg] BRITTANY [facility]PITALSTEPHONER [facility], Inc.; [facility] Inc[facility] Comment on above: Patient Position: Sitting; Cuff Location : Left Arm; Cuff Size: Standard 06-23-2022 16:25-0400 Heart rate 89 /min [facility], Inc.; [facility] Inc[facility] Comment on above: Pattern: Regular 06-23-2022 16:25-0400 Systolic blood pressure 131 mm[Hg] BRITTANY [facility]OSPITALSTEPHONER [facility], Inc.; [facility], Inc[facility] Comment on above: Patient Position: Sitting; Cuff Location : Left Arm; Cuff Size: Standard 07-02-2020 14:24040 Body height 182.88 cm BRITTANY [facility]OSPITALSTEPHONBANNER [facility], Inc.; [facility], [facility]. 07-02-2020 14:24-0400 Body mass index (BMI) [Ratio] 27.04 kg/m2 BRITTANY [facility]PITALSTEPHONBANNER [facility], [facility].; [facility], [facility]. 07-02-2020 14:24-0400 Body surface area Derived from formula 2.13 m2 [facility], [facility].; [facility], [facility]. 07-02-2020 14:240400 Body weight 90.45 kg BRITTANY [facility]ITALFRANC[facility]AL[facility], Inc.; [facility], [facility]. 07-02-2020 14:24-0400 Diastolic blood pressure 85 mm[Hg] BRITTANY AMER[facility] FORK HOSPITALFRANCTTER CONSTRUCTION PERSON-C [facility], Inc.; [facility] CENTEROrigin Healthcare Solutions [place] [employer] [facility], Inc. Comment on above: Patient Position: Sitting; Cuff Location : Left Arm; Cuff Size: Standard 07-02-2020 14:24-0400 Heart rate 87 /min BRITTANY [facility] HOSPITALFRANCTTER [facility], Inc.; [facility] CENTEROrigin [facility] [place] [employer] [facility], Inc. Comment on above: Pattern: Regular 07-02-2020 14:24-0400 Inhaled oxygen concentration 21 % [facility] NORTHSherpaaBUFFAL[facility] HOSPITAL-C [facility], Inc.; [employer], Inc. Comment on above: Room air 07-02-2020 14:24-0400 SaO2% (BldA) [Mass fraction] 97 % [facility] NORTHSherpaaBUFFAL[facility]OSP[facility]-C [facility], Inc.; [facility]ENTEROrigin Healthcare Solutions [facility], Inc. 07-02-2020 14:24-0400 Systolic blood pressure 125 mm[Hg] BRITTANY AMERICAN FORK HOSPITALSTEPHONER CONSTRUCTION PERSON-C [facility], Inc.; [facility]ENTEROrigin [facility] [place] [employer] [facility] [place] [facility], Inc. Comment on above: Patient Position: Sitting; Cuff Location : Left Arm; Cuff Size: Standard 06-04-2020 13:31-0500 Body height 185.42 cm [facility] NORTHSherpaaER [facility], Inc.; [employer] [facility], Inc. 06-04-2020 13:31-0500 Body mass index (BMI) [Ratio] 26.52 kg/m2 [facility] NORTHSTEPHONER CONSTRUCTION PERSON-C [facility] [employer] [facility], Inc.; [facility] CENTEROrigin [facility] Solutions [facility], Inc. 06-04-2020 13:31-0500 Body surface area Derived from formula 2.16 m2 [facility] NORTHSherpaaTTER [facility], Inc.; [employer] [facility] [employer] [facility], Inc. 06-04-2020 13:31-0500 Body weight 91.17 kg [facility], Inc.; [facility], Inc. 06-04-2020 13:31-0500 Diastolic blood pressure 97 mm[Hg] BRITTANY PURDYTTER CONSTRUCTION PERSON-C [facility], Inc.; [facility], Inc. Comment on above: Patient Position: Sitting; Cuff Location : Left Arm; Cuff Size: Standard 06-04-2020 13:31-0500 Heart rate 111 /min BRITTANY PURDYTTER CONSTRUCTION PERSON-C [facility], Inc.; [facility], Inc. Comment on above: Pattern: Regular 06-04-2020 13:31-0500 Systolic blood pressure 136 mm[Hg] BRITTANY PURDYTTER CONSTRUCTION PERSON-C [facility], Inc.; [facility], Inc. Comment on above: Patient Position: Sitting; Cuff Location : Left Arm; Cuff Size: Standard 10-26-2017 10:22-0400 Body height 185.42 cm BRITTANY [facility] HOSPITALFRANCER [facility], Inc.; [facility], Inc. 10-26-2017 10:22-0400 Body mass index (BMI) [Ratio] 26.25 kg/m2 BRITTANY [facility] HOSPITALFRANCER [facility], Inc.; [facility], Inc. 10-26-2017 10:22-0400 Body surface area Derived from formula 2.15 m2 [facility] NORTHFRANCER CONSTRUCTION PERSON-C [facility], Inc.; [facility], Inc. 10-26-2017 10:22-0400 Body weight 90.27 kg BRITTANY AMERICAN FORK HOSPITALFRANCTTER CONSTRUCTION PERSON-C [facility], Inc.; [facility], Inc. 10-26-2017 10:22-0400 Diastolic blood pressure 86 mm[Hg] BRITTANY PURDYTTER CONSTRUCTION PERSON-C [facility], Inc.; [facility], Inc. Comment on above: Patient Position: Sitting; Cuff Location : Left Arm; Cuff Size: Large 10-26-2017 10:22-0400 Heart rate 80 /min BRITTANY PURDYTTER CONSTRUCTION PERSON-C [facility], Inc.; [place] [employer] [facility], Inc. Comment on above: Pattern: Regular 10-26-2017 10:22-0400 Systolic blood pressure 125 mm[Hg] BRITTANY PURDYTTER CONSTRUCTION PERSON-C [facility], Inc.; [facility], Inc. Comment on above: Patient Position: Sitting; Cuff Location : Left Arm; Cuff Size: Large 07-12-2016 09:58-0400 Body height 185.42 cm BRITTANY SARAHTTER CONSTRUCTION PERSON-C [facility], Inc.; [facility] HEART CENTERLOOKSIMACentral [facility], Inc. 07-12-2016 09:58-0400 Body mass index (BMI) [Ratio] 25.48 kg/m2 BRITTANY [facility] HOSPITALSTEPHONER [facility], Inc.; [facility] CENTEROrigin Healthcare Solutions [facility], Inc. 07-12-2016 09:58-0400 Body surface area Derived from formula 2.12 m2 BRITTANY [facility] HOSPITALSTEPHONER [facility], Inc.; [facility] CENTEROrigin Healthcare Solutions [facility], Inc. 07-12-2016 09:58-0400 Body temperature 98 [degF] BRITTANY JEAN BAPTISTESTEPHONER CONSTRUCTION PERSON-C [facility], Inc.; [employer] [facility], Inc. Comment on above: Method: Oral 07-12-2016 09:58-0400 Body weight 87.6 kg BRITTANY CANDYER CONSTRUCTION PERSON-C [facility], Inc.; [facility], Inc. 07-12-2016 09:58-0400 Diastolic blood pressure 75 mm[Hg] BRITTANY AMERICAN FORK HOSPITALSTEPHONER CONSTRUCTION PERSON-C [facility], Inc.; [employer] [place] [employer] [facility] [employer] [place] [facility], Inc. Comment on above: Patient Position: Sitting; Cuff Location : Left Arm; Cuff Size: Standard 07-12-2016 09:58-0400 Heart rate 102 /min BRITTANY PURDYTTER CONSTRUCTION PERSON-C [facility], Inc.; [employer] [facility] [employer], Inc. Comment on above: Pattern: Regular 07-12-2016 09:58-0400 Systolic blood pressure 128 mm[Hg] BRITTANY JEAN BAPTISTELiquidTETTER CONSTRUCTION PERSON-C [facility], Inc.; [place] [facility], Inc. Comment on above: Patient Position: Sitting; Cuff Location : Left Arm; Cuff Size: Standard 05-12-2013 10:00-0500 Body height 185.42 cm BRITTANY AMER[facility]K HOSPITALSherpaaER [facility], Inc.; [facility], Inc. 05-12-2013 10:00-0500 Body mass index (BMI) [Ratio] 21.37 kg/m2 [facility] NORTHSherpaaBUFFAL[facility]OSP[facility], Inc.; [facility], Inc. 05-12-2013 10:00-0500 Body surface area Derived from formula 1.97 m2 [facility]ENTEReTecER [facility], Inc.; [facility], [facility]. 05-12-2013 10:00-0500 Body weight 73.48 kg BRITTANY ECKeyER CONSTRUCTION PERSON-C [facility], [employer].; [facility], Inc. 05-12-2013 10:00-0500 Diastolic blood pressure 80 mm[Hg] BRITTANY AMERICAN FORK HOSPITALSherpaaTTER CONSTRUCTION PERSON-C [facility], Inc.; [facility], Inc. Comment on above: Patient Position: Sitting; Cuff Location : Left Arm; Cuff Size: Standard 05-12-2013 10:00-0500 Heart rate 70 /min [facility] NORTHSherpaaER CONSTRUCTION PERSON-C [facility], Inc.; [facility], Inc. Comment on above: Pattern: Regular 05-12-2013 10:00-0500 Systolic blood pressure 119 mm[Hg] BRITTANY QPSoftwareTTER CONSTRUCTION PERSON-C [facility], Inc.; [facility], Inc. Comment on above: Patient Position: Sitting; Cuff Location : Left Arm; Cuff Size: Standard 06-30-2012 15:16-0400 Body height 185.42 cm Irma Feliciano RN [facility], [employer].; [facility], Inc. 06-30-2012 15:16-0400 Body mass index (BMI) [Ratio] 22.16 kg/m2 Irma Feliciano RN [facility], Inc.; [facility], Inc. 06-30-2012 15:16-0400 Body surface area Derived from formula 2 m2 Irma Feliciano RN [facility] CenterTalaent[facility].; [facility], Inc. 06-30-2012 15:16-0400 Body temperature 97.9 [degF] Irma Feliciano RN [facility] CenterTalaent[facility].; [facility], Inc. Comment on above: Method: Oral 06-30-2012 15:16-0400 Body weight 76.2 kg Irma Feliciano RN [facility] CenterT[facility]ent[facility].; [facility], Inc. 06-30-2012 15:16-0400 Diastolic blood pressure 75 mm[Hg] Irma Feliciano RN [facility] CenterTalaentia.; [facility], WHO[employer]. Comment on above: Patient Position: Sitting; Cuff Location : Left Arm; Cuff Size: Large 06-30-2012 15:16-0400 Heart rate 75 /min Irma Feliciano RN [facility] CenterT[facility]ent[facility].; [facility], Inc. Comment on above: Pattern: Regular 06-30-2012 15:16-0400 Systolic blood pressure 132 mm[Hg] Irma Feliciano RN [facility] HospitalC[facility] CenterTalaentia.; [facility], Inc. Comment on above: Patient Position: Sitting; Cuff Location : Left Arm; Cuff Size: Large 06-11-2012 13:46-0500 Body height 185.[address] [facility] HEALTHVentura [facility] [employer] [place] [facility] CenterT[facility]ent[facility].; [facility], Inc. 06-11-2012 13:46-0500 Body mass index (BMI) [Ratio] 22.69 kg/m2 BRITTANY JEAN BAPTISTEFANY [facility] CenterCinecore [facility] CenterTalaentia.; [facility], Inc. 06-11-2012 13:46-0500 Body surface area Derived from formula 2.02 m[address] [facility] HEALTHC [facility] HospitalCinecore [facility] Medical CenterMunch On Me Inc.; [facility] CenterMunch On Me Inc. 06-11-2012 13:46-0500 Body weight 78.02 kg BRITTANY SAENZER CONSTRUCTION PERSON-C [facility], Inc.; [facility], Inc. 06-11-2012 13:46-0500 Diastolic blood pressure 62 mm[Hg] BRITTANY PURDYTTER CONSTRUCTION PERSON-C [facility], Inc.; [employer] [facility] [place] [facility], Inc. Comment on above: Patient Position: Sitting; Cuff Location : Left Arm; Cuff Size: Standard 06-11-2012 13:46-0500 Heart rate 68 /min BRITTANY AMERICAN FORK HOSPITALFRANCTTER CONSTRUCTION PERSON-C [facility], Inc.; [employer] [facility], Inc. Comment on above: Pattern: Regular 06-11-2012 13:46-0500 Systolic blood pressure 114 mm[Hg] BRITTANY PURDYTTER CONSTRUCTION PERSON-C [facility], Inc.; [employer] [facility] [place] [facility], Inc. Comment on above: Patient Position: Sitting; Cuff Location : Left Arm; Cuff Size: Standard 04-15-2011 15:29-0500 Body height 185.42 cm BRITTANY AMERICAN FORK HOSPITALSTEPHONER CONSTRUCTION PERSON-C [facility] [employer] [place] [facility], Inc.; [facility], Inc. 04-15-2011 15:29-0500 Body mass index (BMI) [Ratio] 22.43 kg/m2 BRITTANY [facility] HOSPITALFRANCER [facility], Inc.; [facility], Inc. 04-15-2011 15:29-0500 Body surface area Derived from formula 2.01 m2 BRITTANY AMERICAN FORK HOSPITALSTEPHONER CONSTRUCTION PERSON-C [facility], Inc.; [facility], Inc. 04-15-2011 15:29-0500 Body temperature 97.6 [degF] BRITTANY AMERICAN FORK HOSPITALSherpaaTTER CONSTRUCTION PERSON-C [facility], Inc.; [employer] [facility], Inc. Comment on above: Method: Oral 04-15-2011 15:29-0500 Body weight 77.11 kg BRITTANY SAENZER CONSTRUCTION PERSON-C [facility] [employer] [place] [facility], Inc.; [employer] [facility], Inc. 04-15-2011 15:29-0500 Diastolic blood pressure 70 mm[Hg] BRITTANY PURDYTTER CONSTRUCTION PERSON-C [facility], Inc.; [employer] [facility], Inc. Comment on above: Patient Position: Sitting; Cuff Location : Left Arm; Cuff Size: Large 04-15-2011 15:29-0500 Heart rate 83 /min BRITTANY MORALESTETTER CONSTRUCTION PERSON-C [facility] [employer] [place] [facility], Inc.; [employer] [facility] [place] [facility], Inc. Comment on above: Pattern: Regular 04-15-2011 15:29-0500 Systolic blood pressure 106 mm[Hg] BRITTANY JEAN BAPTISTELiquidTETTER CONSTRUCTION PERSON-C [facility] [employer] [place] [facility], Inc.; [employer] [facility], Inc. Comment on above: Patient Position: Sitting; Cuff Location : Left Arm; Cuff Size: Large 04-15-2010 16:12-0500 Body temperature 98.4 [degF] BRITTANY MORALESTETTER CONSTRUCTION PERSON-C [facility] [employer] [place] [facility], Inc.; [employer] [facility] [place] [employer] Comment on above: Method: Oral 04-15-2010 16:12-0500 Diastolic blood pressure 73 mm[Hg] BRITTANY PURDYTTER CONSTRUCTION PERSON-C [facility] [employer] [facility] [employer], [employer] Comment on above: Patient Position: Sitting; Cuff Location : Left Arm; Cuff Size: Standard 04-15-2010 16:12-0500 Heart rate 80 /min BRITTANY MORALESTETTER CONSTRUCTION PERSON-C [employer] [facility] [place] [employer], [employer] Comment on above: Pattern: Regular 04-15-2010 16:12-0500 Systolic blood pressure 112 mm[Hg] BRITTANY iosil EnergyTETTER CONSTRUCTION PERSON-C [employer] [facility], Inc. Comment on above: Patient Position: Sitting; Cuff Location : Left Arm; Cuff Size: Standard Encounters Encounter Date Encounter Type Care Provider Facility Start: 03-07-2025 ambulatory Josefina Veronica ty:[facility] Start: 02-20-2025 ambulatory Josefina Veronica ty:[facility] Start: 02-01-2025 End: 02-01-2025 ambulatory Josefina Sears Facility:[facility] Start: 01-30-2025 ambulatory FANI FENG Facilit y:[facility] Start: 01-09-2025 End: 01-09-2025 Office outpatient visit 15 minutes BRITTANY DIA [facility] Start: 12-26-2024 End: 12-26-2024 Patient encounter procedure Josefina JACKSON -[facility] Work Phone: Start: 12-26-2024 End: 12-26-[address] Aman Diop MD Work Phone: -[facility] Start: 12-26-2024 End: 12-26-2024 ambulatory Josefina Sears Facility:[facility] Start: 11-18-2024 End: 11-18-2024 ambulatory JOSEFINA SEARS Facility:[id number] Start: 11-07-2024 End: 11-07-2024 ambulatory JOSEFINA SEARS Facility:[id number] Start: 10-28-2024 End: 10-28-2024 ambulatory JOSEFINA SEARS Facility:[id number] Start: 10-11-2024 End: 10-11-2024 ambulatory JOSEFINA Leonor ORION Facility:[id number] Start: 09-30-2024 End: 09-30-2024 ambulatory JOSEFINA PORRASONY Facility:[id number] Start: 09-20-2024 End: 09-20-2024 ambulatory JOSEFINA Leonor PORRASORION Facility:[id number] Start: 09-13-2024 End: 09-13-2024 ambulatory JOSEFINA SEARS Facility:[id number] Start: 09-06-2024 End: 09-06-2024 ambulatory JOSEFINA Galvez ORION Facility:[id number] Start: 08-30-2024 End: 08-30-2024 ambulatory JOSEFINASOFIA PORRASONY Facility:[id number] Start: 08-17-2024 End: 08-17-2024 Patient encounter procedure Josefina JACKSON -[facility] Work Phone: Start: 08-17-2024 End: 08-17-[address] Jennifer Warren MD Work Phone: [facility] Work Phone: Start: 07-19-2024 End: 07-19-2024 Medication Refill/Order BRITTANY CARMICHAEL CONSTRUCTION PERSON-C [facility] Start: 07-14-2024 ambulatory Price Villanueva Facility :[facility] Start: 07-14-2024 Non-patient / Non-visit Price Villanueva DO -[facility] Start: 07-14-2024 End: 07-14-2024 Admission to same day surgery center Price Villanueva DO -Endoscopy Work Phone: Start: 07-14-2024 End: 07-14-[address] Jennifer Warren MD Work Phone: [facility] Work Phone: Start: 07-08-2024 End: 07-08-2024 Medication Refill/Order BRITTANY CARMICHAEL CONSTRUCTION PERSON-C [facility] Start: 07-04-2024 End: 07-04-2024 Office outpatient visit 25 minutes BRITTANY CARMICHAEL CONSTRUCTION PERSON-C [facility] Start: 06-20-2024 End: 06-20-2024 Patient encounter procedure Josefina JACKSON -Laboratory Work Phone: Start: 06-20-2024 End: 06-20-[address] Jennifer Warren MD Work Phone: [facility] Work Phone: Start: 06-20-2024 End: 06-20-2024 ambulatory Josefina Sears Facility:[facility] Start: 06-13-2024 End: 06-13-[address] Jennifer Warren MD Work Phone: [facility] Work Phone: Start: 06-13-2024 End: 06-13-2024 Patient encounter procedure Josefina JACKSON -[facility] Work Phone: Start: 06-13-2024 End: 06-13-2024 ambulatory Josefina Sears Facility:[facility] Start: 06-07-2024 End: 06-07-[address] Jennifer Warren MD Work Phone: [facility] Work Phone: Start: 06-07-2024 End: 06-07-2024 Patient encounter procedure Josefina JACKSON -[facility] Work Phone: Start: 06-07-2024 End: 06-07-2024 ambulatory Josefina Sears Facility:[facility] Start: 05-25-2024 End: 05-25-2024 ambulatory JENNIFER [facility] Start: 05-06-2024 End: 05-06-2024 ambulatory AMAN Rodriguez DIOP [facility] Start: 05-03-2024 End: 05-03-2024 Patient encounter procedure Josefina JACKSON -Laboratory, Specimen Work Phone: Start: 05-03-2024 End: 05-03-2024 Patient encounter procedure Josefina JACKSON -[facility] Work Phone: Start: 05-03-2024 End: 05-03-2024 ambulatory Jennifer Warren Facility:[facility] Start: 05-03-2024 End: 05-03-2024 ambulatory Josefina Sears Facility:[facility] Start: 04-04-2024 End: 04-05-2024 Historical Summary BRITTANY SALINAS-Ventura [facility] Start: 03-23-2024 Evaluation and management of inpatient OZZIE PIERRE Facility:[facility] Start: 03-21-2024 End: 03-23-2024 Evaluation and management of inpatient JENNIFER WARREN [facility] Start: 06-24-2022 End: 06-24-2022 [facility] Start: 06-23-2022 End: 06-24-2022 Office outpatient visit 25 minutes BRITTANY DIA [facility] Start: 07-02-2020 End: 07-02-2020 Office outpatient visit 15 minutes BRITTANY OROP-C [facility] Start: 06-08-2020 End: 06-08-2020 Medication Refill/Order BRITTANY CARMICHAEL CONSTRUCTION PERSON-C [facility] Start: 06-04-2020 End: 06-04-2020 Office outpatient visit 15 minutes BRITTANY CARMICHAEL CONSTRUCTION PERSON-C [facility] Start: 04-05-2018 End: 04-05-2018 Historical Summary BRITTANY OROP-C [facility] Start: 10-26-2017 End: 10-26-2017 Office outpatient visit 15 minutes BRITTANY CARMICHAEL CONSTRUCTION PERSON-C [facility] Start: 07-12-2016 End: 07-12-2016 Office outpatient visit 15 minutes BRITTANY CARMICHAEL CONSTRUCTION PERSON-C [facility] Start: 05-12-2013 End: 05-12-2013 Patient encounter procedure BRITTANY CARMICHAEL CONSTRUCTION PERSON-C [facility] Start: 06-30-2012 End: 06-30-2012 Patient encounter procedure BRITTANY CARMICHAEL CONSTRUCTION PERSON-C [facility] Start: 06-11-2012 End: 06-11-2012 Patient encounter procedure BRITTANY CARMICHAEL CONSTRUCTION PERSON-C [facility] Start: 06-03-2011 End: 06-03-2011 Medication Refill/Order BRITTANY CARMICHAEL CONSTRUCTION PERSON-C [facility] Start: 05-28-2011 End: 05-28-2011 Historical Summary BRITTANY OROP-C [facility] Start: 04-15-2011 End: 04-15-2011 Patient encounter procedure BRITTANY CARMICHAEL CONSTRUCTION PERSON-C [facility] Start: 04-15-2010 End: 04-15-2010 Patient encounter procedure BRITTANY CARMICHAEL CONSTRUCTION PERSON-C [facility] Procedures Date Procedure Procedure Detail Performing Clinician Start: 12-26-2024 Total iron binding c apacity measurement Dr. Aman Diop MD Work Phone: Start: 07-14-[address] Jennifer machado MD Work Phone: Start: 07-04-2024 End: 07-04-2024 Dischrg meds reconciled w/current med list AMAN DIOP MD Work Phone: Start: 06-20-2024 Vitamin D, 25-hydrox y measurement Dr. Jennifer Warren MD Work Phone: Comment on above: Vitamin D StatusDefi ciency: <20 ng/mL (50nmol/L)Insufficiency: 20-30 ng/mL (50-75 nmol/L)Sufficiency: 30-100 ng/mL (75-250 nmol/L)Toxicity: >100 ng/mL (>250 nmol/L) Start: 06-13-2024 MRI of small intestine Dr. Jennifer Warren MD Work Phone: Start: 06-07-2024 MRI of pelvis with contrast Dr. Jennifer Warren MD Work Phone: Start: 05-03-2024 Endomysial antibody IgA level Dr. Jennifer Warren MD Work Phone: Start: 05-03-2024 Hepatitis B surface antigen measurement Dr. Jennifer Warren MD Work Phone: Start: 05-03-2024 In-vitro immunologic test Dr. Jennifer Warren MD Work Phone: Comment on above: QuantiFERON-TB Gold Plus is a qualitative indirect test forM tuberculosis infection (including disease) and isintended for use in conjunction with risk assessment,radiography, and other medical and diagnostic evaluations.The QuantiFERON-TB Gold Plus result is determined bysubtracting the Nil value from either TB antigen (Ag)value. The Mitogen tube serves as a control for the test. No response to M tub erculosis antigens detected.Infection with M tuberculosis is unlikely, but high riskindividuals should be considered for additional testing(ATS/IDSA/CDC Clinical Practice Guidelines, 2017). Thereference range is an Antigen minus Nil result of <0.35IU/mL.The specimen received for QuantiFERON testing was incubatedby the ordering institution. Specific procedures outlinedin our Directory of Services and in the package insert forthe QuantiFERON Gold (In Tube) test must be followed toenable for proper stimulation of cells for the productionof interferon gamma. Chemiluminescence immunoassaymethodology Start: 05-03-2024 Measurement of renal function Dr. Jennifer Warren MD Work Phone: Comment on above: GFR Calc Start: 03-24-2024 Antibody screen KERI PIERRE Comment on above: Order Comment: Speci men Type: BLOOD SPECIMENOrdering Facility: [facility] Address: [address] [place] [address] Performed By: #### T SCR ####CC MAIN BLOOD BANKCLIA [id number] [address] Start: 03-21-2024 End: 03-21-2024 Appendectomy Malgorzata OLIVEIRA MD Work Phone: Comment on above: with peritonitis; Dr Pao Warren [facility] Start: 03-21-2024 Bypass Large Intesti ne to Large Intestine, Open Approach JENNIFER WARREN Start: 03-21-2024 Inspection of Perito chica Cavity, Percutaneous Endoscopic Approach JENNIFER WARREN Start: 03-21-2024 Repair Sigmoid Colon , Open Approach JENNIFER WARREN Start: 03-21-2024 Resection of Ileocec al Valve, Open Approach JENNIFER WARREN Start: 03-21-2024 End: 03-21-2024 Urinalysis BRITTANY OROP-Ventura Comment on above: Result Comment: URIN ALYSIS Performed By: #### [id number] #### [facility],[address] [place], [place] [id number] Start: 06-23-2022 End: 06-23-2022 Dischrg meds reconciled w/current med list Malgorzata OLIVEIRA MD Work Phone: Start: 07-02-2020 End: 07-02-2020 Collj & interpj physiol data min 30 min ea 30 d BRITTANY Head JANY CONSTRUCTION PERSON-C Start: 07-02-2020 End: 07-02-2020 Urinary Incontinence BRITTANY CARMICHAEL CONSTRUCTION PERSON-C Comment on above: Negative. Start: 06-08-2020 End: 06-08-2020 Collj & interpj physiol data min 30 min ea 30 d AMAN DIOP MD Work Phone: Start: 04-02-2018 End: 04-02-2018 Vasectomy BRITTANY CARMICHAEL CONSTRUCTION PERSON-C Comment on above: R ing hernia; Dr Tai eugene Start: 04-06-2017 H/O: vasectomy History of vasectomy Dr. Jennifer Warren MD Work Phone: Comment on above: 04/02/18 Start: 05-28-2011 End: 05-28-2011 Repair of inguinal hernia BRITTANY CARMICHAEL CONSTRUCTION PERSON-C Comment on above: Right. TDAP - Adacel/Boostrix WHITPeggy CARMICHAEL CONSTRUCTION PERSON-C Comment on above: Discussed. 07/04/2024 Plan of Treatment Date Care Activity Detail Author Start: 07-21-2025 Well child visit Medical; BLOOD PRESSURE CHECK - 6 month check [facility]. Start: 21-Jul-2025 11:00-04:00 MD AMAN DIOP Appointment Request [facility]. Start: 01-30-2025 Procedure [facility] Start: 01-09-2025 Basic metabolic panel calcium total BMP (11292) Start: 09-Jan-2025 11:28-04:00 Request [employer].; [employer]. Start: 01-09-2025 Patient encounter procedure Medical; BLOOD PRESSURE CHECK - [facility]. Start: 09-Jan-2025 11:00-04:00 MD AMAN DIOP Appointment Request [facility] Start: 07-14-2024 Colonoscopy w/biopsy single/multiple COLONOSCOPY AND BIOPSY [facility] Start: 07-14-2024 Endoscopy upper small intestine w/biopsy SMALL BOWEL ENDOSCOPY/BIOPSY [facility] Start: 07-14-2024 Patient discharge [facility] Start: 06-13-2024 Following clinical pathway protocol [facility] Start: 06-13-2024 Following clinical pathway protocol [facility] Start: 06-04-2020 Patient Education Trudev; [employer] [facility] Start: 10-26-2017 Patient Education Trudev; [employer] [facility] Start: 07-12-2016 Patient Education GASTRITIS Indication: Gastritis, presence of bleeding unspecified, unspecified chronicity, unspecified gastritis type Start: 12-Jul-2016 Instruction Type: Patient Education Trudev; [id number] [facility] Start: 06-30-2012 Blood occult peroxidase actv qual other sources OCCULT BLOOD, FECES, SINGLE (IN OFFICE) (13365) Start: 30-Jun-2012 15:47-04:00 Request Trudev; [employer] [facility] Start: 06-30-2012 Ova&parasites direct smears concentration & id OVA & PARASITE DIR SMEAR ([id number]) Start: 30-Jun-2012 15:46-04:00 Request Trudev; [employer] [facility] Start: 06-30-2012 Cul bact stool aerobic isol salmonella&shigell STOOL-YOUSUF CULTURE (19797) Start: 30-Jun-2012 15:46-04:00 Request Trudev; [employer] [facility] C reactive protein [Mass/volume] in Serum or Plasma [facility] Clostridioides diffi cile DNA [Presence] in Unspecified specimen by LA NENA with probe detection [facility] Nucleic acid assay [facility] Ova OR parasites identification [facility] Patient referral [facility] Work Phone: Procedure [facility] Vitamin B12 measurement [facility] Vitamin D, 25-hydrox y measurement [facility] Payers Date Payer Category Payer Self-pay 2018 Unknown [id number] 1985 Unknown [id number] 2.16.8 [id number] 1985 Unknown [id number] 2.16.8 [id number] 1985 Unknown [id number] 2.16.8 [id number] Unknown ANTHEM Unknown [id number] 2.16. [id number] Unknown [id number] 2.16.8 [id number] Unknown [id number] 2.16.8 [id number] Unknown [id number] 2.16.8 [id number] Unknown [id number] 2.16.8 [id number] Unknown [id number] 2.16.8 40.1.780783.3.579.2.462 Unknown [id number] 2.16.8 40.1.088547.3.579.2.462 Unknown [id number] 2.16.8 40.1.246048.3.579.2.462 Unknown [id number] 2.16.8 40.1.185387.3.579.2.462 Unknown [id number] 2.16.8 [id number] Unknown [id number] 2.16.8 [id number] Unknown [id number] 2.16.8 [id number] Unknown [id number] 2.16.8 [id number] Unknown [id number] 2.16.8 [id number] Unknown [id number] 2.16.8 [id number] Unknown [id number] 2.16.8 [id number] Social History Date Type Detail Facility Alcohol Use: Alcohol Use: ; Y es for Alcohol Use. 1 to 7 drinks per week. 2 drinks per occasion. [facility] Current Work/Study Status Current Work/Study Status [facility]; [facility] Tobacco use: Tobacco use: ; F ormer smoker. [facility] Start: 1985 Male [facility] Start: 04-15-2018 End: 12-26-2024 Never smoked tobacco [facility] Work Phone: Start: 06-19-2024 End: 07-14-2024 Sex Male (finding) [facility] Alcohol Use: Alcohol Use: ; N o Alcohol Use. [facility] Tobacco use: Tobacco use: ; N ever smoker. [facility] Sex Male [facility] Goals Date Patient Goal Desired Activity /State Mental Status Date Assessment Result Facility 07-14-2024 Cognitive function Level Of Consciousness Drowsy [facility] Work Phone: 07-14-2024 Cognitive function Patient Orien tation Person;Place;Time [facility] Work Phone: 06-13-2024 Cognitive function Voice/Name [facility] Work Phone: Clinical Notes 03-21-2024 to 12-26-2024 Note Date & Type Note Facility 12-26-2024 Evaluation note Diagnosis Onset Date Resolution Crohn disease acute December 062024 10:32am Diarrhea acute December 10:32am Elevated lipase acute December 26, 2024 10:32am Immunocompromised acute Septemb er 5 10:32am Therapeutic drug monitoring acute December 26, 2024 10:32am [facility] Work Phone: [phone]) 184-242109-22-2025 [facility] [address] [place] [address] OFFICE VISIT Date of Service: 12/26/24 MR#: [id number] Acct: [id number] Name: JAIR WARREN Rep #: [id number] : 1985 Provider: RENETTA eSars Age/Sex: 39/M Location: [facility] Status: Signed Intake Vital Signs 07/14/24 06:12 12/26/24 10:48 Height 6 ft 1 in 6 ft 1 in Weight: 209 lb 8 oz BMI 27.6 BP 120/81 H Respiration 16 Pulse 66 Temp 98.4 F Temp Source Temporal Pulse Oximetry (%) 98 Oxygen Delivery Method room air Intake Visit Reasons: 4 M FU Crohn's Disease Chief Complaint: f/u Crohn's Circulation Manager Required: No Accompanied by: Is patient in pain?: No Allergies lactose (lactose intolerant) Allergy (Severe, Verified 12/26/24 10:49) OTHER Medications ?Medication ?Instructions ?Recorded ?Confirmed ?Type multivitamin (Daily Multi-Vitamin 1 tab PO DAILY 07/0812/26/24 History tablet) amlodipine 5 mg tablet 5 mg PO BID 07/14/24 5 History losartan 50 mg-hydrochlorothiazide 2 tab PO DAILY 07/0512/26/24 History 12.5 mg tablet (Hyzaar) Bacillus coagulans 250 million 1 tab PO DAILY 08/17/24 12/26/24 History cell chewable tablet (Digestive Advantage Probiotic Gummy) omeprazole 40 mg capsule,delayed 40 mg PO QDAY #90 cap s 08/17/24 12/26/24 Rx release peg 3350-sod sulf,[id number] See Rx Instructions PO .COMPLEX #2 11/16/24 12/26/24 Rx 178.7-7.3-0.5-1.12-0.9 gram oral mL soln (Suflave) budesonide 3 mg 6 mg PO QAM Crohn's 12/26/24 12/26/24 History capsule,delayed,extended release [facility] Medical History Wears contact lenses Alcohol use Prostate disease Dietary restriction History of diverticulitis History of Crohn's disease Non-smoker Hypertension Recurrent right inguinal hernia Surgical History History of bowel resection History of appendectomy History of vasectomy (~03/2018) Hernia Family History Father Arthritis Social History Smoking Status: Never smoker alcohol intake: current alcohol intake frequency: a few times a month HPI HPI Chief Complaint: f/u Crohn's Details: JAIR WARREN, is a 39 M who presents to the office today for follow-up of Crohn's with diarrhea, abdominal pain and bloating. OV 08/18/2024 39-year-old male with newly diagnosed Crohn's disease, confirmed by surgical pathology following admission for acute appendicitis and intra-abdominal abscess. He underwent appendectomy with ileocolicresection and ileocolonic anastomosis, with intraoperative findings of dense adhesions and a sigmoid enterotomy requiring oversewing. Pathology revealing full-thickness chronic active inflammation, ulceration, fibrosis adhesions, and fistula formation at the ileocecal junction, consistent with Crohn's disease. He has a remote history of rectal abscesses approximately 15 years ago. Postoperative course was uncomplicated; he was started on course of budesonide 9 mg daily and metronidazole 250 mg twice daily and has since shown clinical improvement. Colonoscopy revealed mild active chronic ileocolitis at the anastomosis site with otherwise normal mucosa and no evidence of diffuse small bowel involvement. MRE showed mild wall thickening at the neoterminal ileum, likely related to postsurgicalchanges or fibrosis, with no evidence of active inflammation, stricture, or fistulizing disease. Fecal calprotectin was 71, and follow-up labs revealed a low potassium (3.2) but otherwise stable CBC and normal hepatic panel. TPMT and infectious screening (Quantiferon, hepatitis panel) were unremarkable. 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 Budesonide will be tapered gradually after completion of infliximab loading doses over 8 to 12 weeks, and metronidazole will be discontinued at this time, as there is no current evidence of infection or perianal involvement. Labs including CBC, CMP,and TPMT will be monitored closely during azathioprine titration, with target dosing of 2 to 2.5 mg/kg/day, titrated over several weeks as tolerated. Infliximab will be initiated with standard induction (weeks 0, 2, 6), followed bymaintenance dosing every 8 weeks. The patient has been counseled on risks, benefits, and monitoringrequirements for combination immunosuppression and agrees with plan. Note: [employer] speech recognition capital project engineer software was used to create portions of this document. Sound-alike and misspelled words, as well as other capital project engineer errors may be contained in the documentation. Patient Instructions: 1. Discontinue Metronidazole 2. Start Imuran 50mg once daily x2 weeks, if tolerated and labs are stable (CBC,CMP), will increaseto 100 mg daily. With continued follow-up labs over the next 1 to 2 weeks, we will then consider increasing to 150 mg daily as tolerated. Prescription sent to your local pharmacy 3. Start Remicade 5mg/kg with [facility] - notify me once you are scheduled for your first loading dose and then update me 1-2 days after your first loading dose with side effects. Monitor for nausea, vomiting, abdominal pain or cramping, loss of appetite, diarrhea, or signs of pancreatitis (rare) with severe upper abdominal pain, nausea, and vomiting. Usually occurs within the first few weeks. 4. Budesonide: start to taper after completion of loading doses, decrease to 6mg(2 capsules) daily after 3rd loading dose of Remicade, continue 6mg daily x4 weeks and then decreased to 3mg daily x4 weeks and then discontinue. 5. Fecal Calprotectin/CRP 3 months after initiation of Remicade/Imuran - order has been written 6. Colonoscopy 6 months after initiation of Remicade/Imuran 7. Recommend influenza vaccine yearly 8. Discussed risk of basal cell cancers developing in patients on TNF therapy. Irecommended routinedermatology screenings, at least yearly. CBC: 11/18/2024 HGB 12.3 CMP: 11/18/2024 K+ 2.9, normal transaminases and renal function CRP: 11/18/2024 WNL (06/20/2024 elevated 4.6) B12: 06/20/2024 358 Vitamin 34.6 Celiac Serologies: 05/03/2024 negative QUANTIFERON: 05/03/2024 negative HBVsAb: 05/03/2024 reactive HBV Core Total Ab: 05/03/2024 negative SB imaging: MRE 06/13/2024 There is a short segment of mild apparent wall thickening along the neoterminal ileum, without convincing evidence of associated active inflammation. This could be related to underdistention, or perhaps fibrosis related to previous inflammation. This would be optimally ended evaluated endoscopically. No bowel dilatation to confirm that this reflects a stricture. No other abnormal areas of abnormal bowel are confidently identified, allowing for limitations. No definite evidence of penetrating disease such as fistulization or abscess. COLON: 07/14/2024 Mild active chronic ileocolitis, negative for dysplasia Fecal Calprotectin: 11/18/2024 elevated 116 April 2024 elevated 71 BIOLOGICS: Remicade (START DATE 08/30/2024) - last infusion 12/06 next due 01/31 Imuran - 50mg daily start August 2024 - Discontinue 11/02/2024 due to elevated transaminases and lipase, transaminases normalized with discontinuing STEROIDS: Budesonide start 05/05/2024 at 9mg daily, this was decreased to 3mg on 11/13/2024, - mid November increased back to 6mg daily and has been doing better VACCINES COVID: Varicella Vaccine: Shingles Vaccine: Hepatitis B Vaccine: Pneumonia Vaccine: Influenza Vaccine: IBD SYMPTOMS: Bowel movements are: 2-3x a day, they were formed before going on a cruise and now they are loose, but states he did his best in terms of stools he reports he has less diarrhea on Budesonide 6mg daily Blood noted in stools: denies Bowel movement urgency present: yes, intermittent Stool incontinence: denies, some before increasing back to 6mg daily Nocturnal BM's: denies Abdominal pain: yes, intermittent RLQ pain, onset was sudden with gradual increase in intensity, last 10 minutes for so and then resolves Rectal pain: denies any rectal pain - next colonoscopy scheduled for 02/20 - he is avoiding spicy foods, fruit juices - he is avoiding raw vegetables - ice cream causes pain and diarrhea QOL: better with Remicade, not missing work, symptoms are not slowing him down ROS: Fever: denies Night Sweats: denies Visual changes: denies Mouth sores: denies Joint pain: denies Skin rashes/Lesions: denies Weight changes: denies Smoking status: denies NSAID use: denies Discussed importance of influenza vaccine yearly Discussed risk of basal cell cancers developing in patients on TNF therapy. Ihave recommended routine dermatology screenings, at least yearly. RECALL COLONOSCOPY 6 months after initiating therapy with Remicade (colonoscopyscheduled for 02/20) ROS Const Constitutional: No fatigue, fever(s) or weight change ENT ENT: No difficulty swallowing Gastro GI: Positive for abdominal pain, bloating, change in bowel habits and diarrhea; No belching, change in stool character, coffee ground emesis, constipation, cramping, heartburn, difficulty swallowing, feeling full early, excessive flatus, incontinent of stools, Vomiting blood/hematemesis, Blood in stool, loosestools, Black,tarry stools, nausea/dyspepsia, pain with swallowing, vo miting or other Musc Musculoskeletal: No joint pain Skin Skin: No yellowing of the eye or itchy eyes Psych Psychiatric: No anxiety and No depression Endo Endocrine: No fatigue or weight change Aller/Imm Allergy/Immunologic: No itchy eyes Tyrone/Lymp Hematologic/Lymphatic: No easy bleeding or easy bruising Exam Const General: cooperative, healthy appearing, no acute distress and well developed Nutritional Appearance: average body habitus and well nourished Orientation: alert and oriented x3 HENMT Head: normocephalic Ears: hearing grossly normal bilaterally Mouth: moist mucous membranes Teeth and gingiva: dentition normal Eyes Conjunctivae: conjunctivae normal Sclera: sclerae normal Neck Neck: normal visual inspection, full ROM and trachea midline Resp Effort & Inspection: normal respiratory effort, able to speak in complete sentences and symmetric chest movement Neuro General: patient alert and patient oriented x3 Cranial Nerves: other (CN's grossly intact, non-focal exam) Cognition: normal cognition Speech: speech normal Gait: normal gait Psych Appearance: grossly normal and well kempt Affect: normal affect Attitude: cooperative Thought Process: normal Assessment and Plan Assessment and Plan (1) Crohn disease: Status: Acute Qualifiers: Gastrointestinal tract location: small and large intestine Digestive disease complication type: with fistula Qualified Code(s): K50.813 - Crohn's disease of both small and large intestine with fistula Comment: 03/21/2024 exploratory laparoscopy, lysis of dense adhesions, oversewing sigmoidenterotomy, ileocecal resection and side to side anastomosis. Pathology is revealing for ileocecal junction with activechronic inflammation with ulceration, full-thickness inflammation, fibrous serosal adhesions and fistula consistent with crohn's. 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 Addressing dietary triggers while ensuring nutritional balance is a priority. Monitoring and documenting symptoms in relation to food intake will assist in a tailored dietary plan. 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, unspecified, R19.7 - Diarrhea, unspecified, R74.8 - Abnormal levels of other serum enzymes, Z51.81 - Encounter for therapeutic drug level monitoring Comprehensive Metabolic Profil Today D84.9 - Immunodeficiency, unspecified, K50.813 - Crohn's disease of both small and large intestine with fistula, 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, unspecified, R19.7 - Diarrhea, unspecified, R74.8 - Abnormal levels of other serum enzymes, Z51.81 - Encounter for therapeutic drug level monitoring CRP Today D84.9 - Immunodeficiency, unspecified, K50.813 - Crohn's disease of both small and large intestine with fistula, 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 01/30/25 Medications: Changed From budesonide DR-ER 9 mg (3 x 3 mg) PO QAM 100 ea 1RF Crohn's To budesonide DR-ER 6 mg PO QAM Crohn's Plan 39-year-old male presents for follow-up of Crohn's disease, confirmed by surgical pathology following admission for acute appendicitis and intra- abdominal abscess. Colonoscopy was performed July 2024 and revealed mild active colonic ileocolitis at the anastomosis. MR E showed mild wall thickeningat the neoterminal ileum, likely related to postsurgical changes or fibrosis, with no evidence of active inflammation, stricture, or fistulizing disease. He started on Imuran and Remicade August 2024, Imuran was subsequently discontinued secondary to mild increase in transaminases and lipase. Although, reportedtoday the labs which revealed elevation in transaminases were drawn after patient had co nsumed a couple beers the evening prior. Fecal calprotectin completed 11/18/2024 was borderline at 116, this was mildly increased from 71 this past April. Overall he notes an improvement in abdominal pain and diarrhea with initiation of biologic therapy. He was started on budesonide at 9 mg dailythis past April and taper began after completion of loading doses of Remicade. He decreased to 3 mgdaily on November 13, 2024 and had reported an increase in abdominal pain and diarrhea with decreaseddosing. His budesonide dose was increased back to 6 mg daily mid November. I have ordered labs to be completed today and he will decrease budesonide to 3 mg daily starting tomorrow (12/27/2024) for 3 weeks and then will decrease to 3 mg every other day for 1 week and discontinue. He will proceed with colonoscopy as planned on 02/20/2025. His next Remicade dose is due 01/31/2025 and I have ordered infliximab level and antibodies to be drawn just prior to his next infusion. Radhaanthony keep me apprised of any changes in his symptoms. Patient Instructions: Complete labs today Infliximab level with antibodies to be drawn just prior to next infusion on 01/31/2025 Tomorrow (12/27/2024) decrease budesonide to 3 mg daily for 3 weeks and then decrease to 3 mg every other day for 1 week and discontinue Proceed with colonoscopy as scheduled on 02/20/2025-Sutab Follow-up in office in 4 months Keep a record of abdominal pain episodes and associated symptoms Plan Details Follow Up: 4 Months Coding Level of Care Code Off vis,est,level 4 Diagnoses Crohn's disease of both small and large intestine with fistula K50.813 Gastrointestinal tract location: small and large intestine Digestive disease complication type: with fistula Diarrhea due to malabsorption K90.9; R19.7 Diarrhea type: due to malabsorption Therapeutic drug monitoring Z51.81 Immunocompromised D84.9 Elevated lipase R74.8 Clinical Quality Measures Smoking Screening Smoking Status: Never smoker 12/26/24 1356 juan SLABBER-C> Date _ Josefina CARRIONC Cosigner Signature: Date (if applicable) CC: ~ [facility]09-01-2025 Evaluation note* Diagnosis Onset Date Resolution Status Admit Date Crohn disease acute December 062024 10:32am Diarrhea acute December 10:32am Elevated lipase acute December 26, 2024 10:32am Immunocompromised acute Septemb 2024 10:32am Therapeutic drug monitoring acute December 26, 2024 10:32am [facility] Work Phone: 1(302) 106-796708-15-2025 NoteBorderline elevated. Re-evaluation in 4-6 weeks is recommended if clinically indicated.[facility]Comment on above: Order Comment: Specimen Type: BLOOD SPECIMEN Ordering Facility: External Submitter Address: , ,Result Comment: Interpretation: <50.0 ug/g: Normal 50.0 ug/g - 120.0 ug/g: Borderline elevated. Re-evaluation in 4-6 weeks is recommended if clinically indicated. >120.0 ug/g: ElevatedPerformed By: #### 1798-8, 59324-3, 3040-3 #### [facility] CLIA [id number] [address] [place], [place] 2415304-10-2025 Consult note Author [facility] Note Date/Time July 14, 2024 6:2 9am [facility] Medical Records Department [address] [place], [place] [address] Pre-Anesthesia Evaluation 07/14/24 0623 MR#: [id number] Acct: [id number] Name: JAIR WARREN Rep #:[id number] : 1985 39 From: Mk Lomeli MD PCP: Dr. Aman Diop MD Status:REG S DC Y Race: C Location: [place] [address] ASA Classification* ASA Classification ASA Classification: 2 Assessment & Plan Anesthesia* Anesthesia Assessment Anesthesia Assessment: Discussed sedation and/or anesthesia options, risks, benefits, and alternatives with patient/parents/legal guardian/POA. Questions invited. The patient/parents/legal guardian/POA seems to understand and agrees to proceedwith anesthesia plan. Reviewed the physical assessment, medical history, allergy history and patient home medications list prior to surgery/procedure/anesthetic and documented any changes. Performed airway and anesthesia risk assessments. Anesthesia Type Anesthesia Type: MAC History Source History Obtained from:: Patient and Chart Anesthesia Focused Assessment* Temperature: 97.5 F Pulse Rate: 71 Blood Pressure: 134/92 Respiratory Rate: 16 Pulse Ox: 98 Oxygen Delivery Method: Room Air Airway Assessment Mouth opens: >3 cm Mallampati Score: III Teeth Condition: Missing (Patient has several missing molars. Rest are tight.) Focused Labs Anesthesia Preop lab: CBC WBC 7.1 K/mm3 (4.4-11.0) 05/03/24 16:43 05/03/24 RBC 4.97 M/mm3 (4.6-6.2) 05/03/24 16:43 05/03/24 Hgb 13.7 g/dL (13.0-16.5) 05/03/24 16:43 05/03/24 Hct 41.6 % (40-54) 05/03/24 16:43 05/03/24 Plt Count 234 K/mm3 (150-450) 05/03/24 16:43 05/03/24 CHEMISTRY Potassium 3.2 mmol/L (3.5-5.1) L 05/03/24 16:43 05/03/24 Sodium 138 mmol/L (136-145) 05/03/24 16:43 05/03/24 BUN 7 mg/dL (7-18) 05/03/24 16:43 05/03/24 Creatinine 0.83 mg/dL (0.70-1.30) 05/03/24 16:43 05/03/24 Glucose 95 mg/dL (74-106) 05/03/24 16:43 05/03/24 COAG Pre-Assessment Diagnosis/Proposed Procedure Planned Operative Procedure(s): COLONOSCOPY/EGD Anesthesia History 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 When Was Last Pacemaker Check QUESTION #4 FULL TEXT: You/Your Family Experience fever (hyperthermia) with Anesthesia Last Oral Intake Last Oral intake: Last Oral Intake NPO since 02:07/14/24 06:12 Meds taken in AM with sips of Yes 07/14/24 06:12 water? 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 Female No 07/08/24 12:09 HX of Motion Sickness No 07/08/24 12:09 HX of N/V After Surgery No 07/08/24 12:09 Non-Smoker Yes 07/08/24 12:09 Duration of Surgery greater No 07/08/24 12:09 than 60 minutes Number of Risk Factors 1 07/08/24 12:09 PONV Score Low Risk 07/08/24 12:09 Height & Weight Height & Weight: Anesthesia: Height & Weight Height 6 ft 1 in 07/14/24 06:12 Weight: 91.716 kg 07/14/24 06:12 Body Mass Index (BMI) 26.6 07/14/24 06:12 Respiratory Assessment Respiratory Assessment - terminal superintendent: Respiratory Tract Infection Hx - terminal superintendent Hx Respiratory Tract Infection No 07/08/24 12:09 Any additional information?: Yes Hx Respiratory Tract Infection: Yes (Cough fromallergies recently.) STOP Sleep Apnea STOP Sleep Apnea - terminal superintendent: STOP Sleep Apnea - terminal superintendent Hx Hypertension Yes: RECENTLY STARTED MED, 07/08/24 12:09 NOT CONTROLLED, INSTRUCTED TO CALL PCP Hx Sleep Apnea No 07/08/24 12:09 CPAP BIPAP Do you snore loudly (louder No 07/08/24 12:09 than talking or can be heard Do you often feel tired/ No 07/08/24 12:09 fatigued/ sleepy during daytime? Has anyone observed you stop No 07/08/24 12:09 breathing during sleep? STOP Results Negative 07/08/24 12:09 QUESTION #5 FULL TEXT : Do you snore loudly (louder than talking or can be heard through closed doors)? 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 Specify any problems Hx of Preganancy in last 3 N/A 07/08/24 12:09 Months Nurse Filling Out Transfusion VCHRISTIN 07/08/24 12:09 & Questions: Date: 07/08/24 07/08/24 12:09 Time: 12:11 07/08/24 12:09 Patient unable to answer at this time (ie. confused, unrespo /Reproduction History /Reproductive History - terminal superintendent: /Reproductive Hx- terminal superintendent Hx Now Gestational Age (in weeks): EDC: Hx Hx Para Hx Section SAB Active Medications Active Medications: Current Medications Generic Name Dose Route Start Last Admin Trade Name Freq PRN Reason Stop Dose Admin Sodium Chloride 10 - 40 ml 06/13/24 10:57 0.9% Saline Lock 10 Ml Syringe IV UD PRN SALINE FLUSH PFSH Medical History Wears contact lenses Alcohol use Prostate disease Dietary restriction History of diverticulitis History of Crohn's disease Non-smoker Hypertension Recurrent right inguinal hernia Home Medications ?Medication ?Instructions ?Recorded ?Last Taken ?Type Bacillus coagulans 250 million 1 tab PO DAILY 06/20/24 07/13/24 History cell chewable tablet (Digestive Advantage Probiotic Gummy) metronidazole 500 mg tablet 500 mg PO BID fistulizing Crohn's 06/20/24 07/13/24 Rx #60 tabs budesonide 3 mg 9 mg PO QAM Crohn's 07/08/24 07/13/24 History capsule,delayed,extended release multivitamin (Daily Multi-Vitamin 1 tab PO DAILY 07/0807/13/24 History tablet) amlodipine 5 mg tablet 5 mg PO BID 07/14/24 5 04:30 History losartan 50 mg-hydrochlorothiazide 2 tab PO DAILY 07/0507/13/24 History 12.5 mg tablet (Hyzaar) Allergy/AdvReac Type Severity Reaction Status Date / Time lactose (lactose intolerant) Allergy Severe OTHER Verified 07/14/24 06:08 Family History Father Arthritis Surgical History History of bowel resection History of appendectomy History of vasectomy (~03/2018) Hernia Social History Smoking Status: Never smoker alcohol intake: current alcohol intake frequency: a few times a month Review of Systems (Anesthesia) ROS Narrative System reviewed and no additional complaints, except as documented. 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 07/14/24628 <Electronically signed by Mk good MD> Date _ Mk Lomeli MD Cosigner Signature: Date CC: ~ Signed [facility] Work Phone: 1(460) 105-654604-10-2025 Consult note [facility] Medical Records Department [address] [place] [address] Anesthesia Postop Eval I 07/14/24 0736 MR#: [id number] Acct: [id number] Name: JAIR WARREN Rep #:[id number] : 1985 39 From: Herbert White PCP: Dr. Aman Diop MD Status:REG S DC Y Race: C Location: [place] [address] Anesthesia: Postop Eval I Current Vital Signs Temperature: 97.3 F Pulse Rate: 86 Blood Pressure: 114/80 Respiratory Rate: 18 Pulse Ox: 96 Oxygen Delivery Method: Room Air Assessment Airway patent: Yes Spontaneous unlabored respirations: Yes Mental status: Asleep nausea: No Vomiting: No Anesthesia Complication: No Fluid Hydration Crystalloid volume administer (ml): 60 Total IV fluid infused: 60 Progress Note Anesthesia document: Postop Eval 1 completed: Yes 07/14/24 0737 > Date _ Herbert Diaz Signature: Date CC: ~ Signed [facility]04-10-2025 Procedure note [facility] Medical Records Department [address] [place] [address] Colonoscopy Report MR#: [id number] Acct: [id number] Name: JAIR WARREN Rep #:[id number] : 1985 39 From: Price Villanueva DO PCP: Dr. Aman Diop MD Status:REG S DC Patient Name: Jair Warren Procedure Date: 07/14/2024 7:17 AM Date of : 1985 Age: 39 Procedure: Colonoscopy Indications: Crohn's disease of the small bowel and colon Providers: Price Villanueva DO Referring MD: Aman Diop Md Medicines: Monitored Anesthesia Care Patient Profile: This is a 39 year old male. Refer to note in patient chart for documentation of history and physical. Patient has symptoms of chronic global abdominal pain and chronic nausea. Last Colonoscopy: more than 3 years ago. Complications: No immediate complications. Procedure: Pre-Anesthesia Assessment: - Prior to the procedure, a History and Physical was performed, and patient medications and allergies were reviewed. The patient is competent. The risks and benefits of the procedure and the sedation options and risks were discussed with the patient. All questions were answered and informed consent was obtained. Patient identification and proposed procedure were verified by the physician in the pre-procedure area. Mental Status Examination: alert and oriented. Airway Examination: normal oropharyngeal airway and neck mobility. Respiratory Examination: clear to auscultation. CV Examination: normal. Prophylactic Antibiotics: The patient does not require prophylactic antibiotics. Prior Anticoagulants: The patient has taken no anticoagulant or antiplatelet agents except for NSAID medication. ASA Grade Assessment: II - A patient with mild systemic disease. After reviewing the risks and benefits, the patient was deemed in satisfactory condition to undergo the procedure. The anesthesia plan was to use monitored anesthesia care (MAC). Immediately prior to administration of medications, the patient was re-assessed for adequacy to receive sedatives. The heart rate, respiratory rate, oxygen saturations, blood pressure, adequacy of pulmonary ventilation, and response to care were monitored throughout the procedure. The physical status of the patient was re-assessed after the procedure. After I obtained informed consent, the scope was passed under direct vision. Throughout the procedure, the patient's blood pressure, pulse, and oxygen saturations were monitored continuously. The colonoscope was introduced through the anus and advanced to the terminal ileum. The colonoscopy was performed without difficulty. The patient tolerated the procedure well. The quality of the bowel preparation was unsatisfactory. The terminal ileum was photographed. Scope In: 7:18:38 AM Scope Withdrawal Time 0 hours 3 minutes 35 seconds Scope Out: 7:27:30 AM Total Procedure Duration Time 0 hours 8 minutes 52 seconds Findings: The perianal and digital rectal examinations were normal. There was evidence of a prior end-to-side ileo-colonic anastomosis in the ascending colon. This was patent and was characterized by erythema, inflammation and ulceration. The anastomosis was traversed. Biopsies were taken with a cold forceps for histology. Verification of patient identification for the specimen was done. Estimated blood loss was minimal. The Simple Endoscopic Score for Crohn's Disease was determined based on the endoscopic appearance of the mucosa in the following segments: - Ileum: Findings include ulcers greater than 2 cm in size, 10-30% ulcerated surfaces, 50-75% of surfaces affected and multiple narrowings that can be passed. Segment score: 9. - Right Colon: Findings include aphthous ulcers less than 0.5 cm in size, no ulcerated surfaces, no affected surfaces and no narrowings. Segment score: 1. - Transverse Colon: Findings include no ulcers present, no ulcerated surfaces, no affected surfaces, no narrowings and no ulcers present, no ulcerated surfaces, no affected surfaces and no narrowings. Segment score: 0. - Left Colon: Findings include large ulcers 0.5-2 cm in size, less than 10% ulcerated surfaces, less than 50% of surfaces affected, a single narrowing that can be passed and no ulcers present, no ulcerated surfaces, no affected surfaces and no narrowings. Segment score: 5. - Rectum: Findings include no ulcers present, no ulcerated surfaces, no affected surfaces, no narrowings and no ulcers present, no ulcerated surfaces, no affected surfaces and no narrowings. Segment score: 0. - Total SES-CD aggregate score: 15. Biopsies were taken with a cold forceps for histology. Verification of patient identification for the specimen was done. Estimated blood loss was minimal. Stool was found in the entire colon. Impression: - Preparation of the colon was unsatisfactory. - Patent end-to-side ileo-colonic anastomosis, characterized by erythema, inflammation and ulceration. Biopsied. - Simple Endoscopic Score for Crohn's Disease: 15, mucosal inflammatory changes secondary to Crohn's disease and secondary to Crohn's disease, with ileitis and colitis. Biopsied. - Stool in the entire examined colon. Recommendation: - Discharge patient to home. - Resume previous diet. - Continue present medications. - Await pathology results. - Repeat colonoscopy for surveillance. Procedure Code(s): --- Professional --- 52159, Colonoscopy, flexible; with biopsy, single or multiple CPT copyright 2021 [employer]. All rights reserved. The codes documented in this report are preliminary and upon medical insurance coder review may be revised to meet current compliance requirements. Price Villanueva DO 07/14/2024 7:36:48 AM This report has been signed electronically. Number of Addenda: 0 Note Initiated On: 07/14/2024 7:17 AM 07/14/24 0736 Date _ Price Maloney Signature: Date (if indicated) CC: Dr. Aman Diop MD; Price Villanueva DO ~ Date Dictated: 07/14/24716 Date Transcribed: [employer] Consultant: RF Signed [facility]04-10-2025 Procedure note [facility] Medical Records Department [address] [place] [address] Operative Report - CC Letter MR#: [id number] Acct: [id number] Name: JAIR WARREN Rep #:[id number] : 1985 39 From: Price Villanueva DO PCP: Dr. Aman Diop MD Status:REG S DC 07/14/2024 Aman Diop Md Re : Colonoscopy procedure for Jair Warren Dear Zane This procedure was performed on July. My impressions and recommendations are as follows: Impressions : - Preparation of the colon was unsatisfactory. - Patent end-to-side ileo-colonic anastomosis, characterized by erythema, inflammation and ulceration. Biopsied. - Simple Endoscopic Score for Crohn's Disease: 15, mucosal inflammatory changes secondary to Crohn's disease and secondary to Crohn's disease, with ileitis and colitis. Biopsied. - Stool in the entire examined colon. Recommendations : - Discharge patient to home. - Resume previous diet. - Continue present medications. - Await pathology results. - Repeat colonoscopy for surveillance. My findings are described in the full procedure note, which is enclosed. If I can be of further assistance, please feel free to contact me at . Sincerely, Price Villanueva DO 07/14/2024 7:36:48 AM This report has been signed electronically. 07/14/24735 Date _ Price Maloney Signature: Date (if indicated) CC: Dr. Aman Diop MD; Price Villanueva DO ~ Date Dictated: 07/14/24716 Date Transcribed: [employer] Consultant: RF Signed [facility]04-10-2025 Procedure note [facility] Medical Records Department [address] [place] [address] EGD Report MR#: [id number] Acct: [id number] Name: JAIR WARREN Rep #:[id number] : 1985 39 From: Price Villanueva DO PCP: Dr. Aman Diop MD Status:REG S DC Patient Name: Jair Warren Procedure Date: 07/14/2024 6:22 AM Date of : 1985 Age: 39 Procedure: Upper GI endoscopy Indications: Epigastric abdominal pain Providers: Price Villanueva DO Referring MD: Aman Diop Md Medicines: Monitored Anesthesia Care Patient Profile: This is a 39 year old male. Refer to note in patient chart for documentation of history and physical. Patient has symptoms of chronic global abdominal pain and chronic nausea. Complications: No immediate complications. Procedure: Pre-Anesthesia Assessment: - Prior to the procedure, a History and Physical was performed, and patient medications and allergies were reviewed. The patient is competent. The risks and benefits of the procedure and the sedation options and risks were discussed with the patient. All questions were answered and informed consent was obtained. Patient identification and proposed procedure were verified by the physician in the pre-procedure area. Mental Status Examination: alert and oriented. Airway Examination: normal oropharyngeal airway and neck mobility. Respiratory Examination: clear to auscultation. CV Examination: normal. Prophylactic Antibiotics: The patient does not require prophylactic antibiotics. Prior Anticoagulants: The patient has taken no anticoagulant or antiplatelet agents except for NSAID medication. ASA Grade Assessment: II - A patient with mild systemic disease. After reviewing the risks and benefits, the patient was deemed in satisfactory condition to undergo the procedure. The anesthesia plan was to use monitored anesthesia care (MAC). Immediately prior to administration of medications, the patient was re-assessed for adequacy to receive sedatives. The heart rate, respiratory rate, oxygen saturations, blood pressure, adequacy of pulmonary ventilation, and response to care were monitored throughout the procedure. The physical status of the patient was re-assessed after the procedure. After obtaining informed consent, the endoscope was passed under direct vision. Throughout the procedure, the patient's blood pressure, pulse, and oxygen saturations were monitored continuously. The colonoscope was introduced through the mouth, and advanced to the fourth part of the duodenum. Small bowel enteroscopy was deemed necessary. The upper GI endoscopy was accomplished without difficulty. The patient tolerated the procedure well. Scope In: 7:15:00 AM Scope Out: 7:16:46 AM Total Procedure Duration Time 0 hours 1 minute 46 seconds Findings: LA Grade B (one or more mucosal breaks greater than 5 mm, not extending between the tops of two mucosal folds) esophagitis with no bleeding was found 38 to 40 cm from the incisors. Biopsies were taken with a cold forceps for histology. Verification of patient identification for the specimen was done. Estimated blood loss was minimal. Suspect gastroparesis due to absence of peristalsis, patient symptoms and retained gastric contents. Diffuse mildly erythematous mucosa without active bleeding and with no stigmata of bleeding was found in the entire duodenum. Impression: - LA Grade B reflux esophagitis with no bleeding. Biopsied. - Gastroparesis. - Erythematous duodenopathy. Recommendation: - Discharge patient to home. - Resume previous diet. - Continue present medications. - Await pathology results. - Repeat upper endoscopy. Procedure Code(s): --- Professional --- 06895, Small intestinal endoscopy, enteroscopy beyond second portion of duodenum, not including ileum; with biopsy, single or multiple CPT copyright 2021 [employer]. All rights reserved. The codes documented in this report are preliminary and upon medical insurance coder review may be revised to meet current compliance requirements. Price Villanueva DO 07/14/2024 7:30:55 AM This report has been signed electronically. Number of Addenda: 0 Note Initiated On: 07/14/2024 6:22 AM 07/14/24 0731 Date _ Price Maloney Signature: Date (if indicated) CC: Dr. Aman Diop MD; Price Villanueva DO ~ Date Dictated: 07/14/24621 Date Transcribed: [employer] Consultant: RF Signed [facility]04-10-2025 Procedure note [facility] Medical Records Department [address] [place] [address] Operative Report - CC Letter MR#: [id number] Acct: [id number] Name: JAIR WARREN Rep #:[id number] : 1985 39 From: Price Villanueva DO PCP: Dr. Aman Diop MD Status:REG S DC 07/14/2024 Aman Diop Md Re : Upper GI endoscopy procedure for Jair Warren Dear Zane This procedure was performed on July. My impressions and recommendations are as follows: Impressions : - LA Grade B reflux esophagitis with no bleeding. Biopsied. - Gastroparesis. - Erythematous duodenopathy. Recommendations : - Discharge patient to home. - Resume previous diet. - Continue present medications. - Await pathology results. - Repeat upper endoscopy. My findings are described in the full procedure note, which is enclosed. If I can be of further assistance, please feel free to contact me at . Sincerely, rPice Villanueva DO 07/14/2024 7:30:55 AM This report has been signed electronically. 07/14/24 0731 Date _ Price Hendersonignwilbert Signature: Date (if indicated) CC: Dr. Aman Diop MD; Price Villanueva DO ~ Date Dictated: 07/14/24621 Date Transcribed: [employer] Consultant: RF Signed [facility]04-10-2025 History and physical note [facility] Medical Records Department [address] [place] [address] History & Physical Exam 07/14/24 0701 MR#: [id number] Acct: [id number] Name: JAIR WARREN Rep #:[id number] : 1985 39 From: Price Friend DO PCP: Dr. Aman Diop MD Status:REG S PR Location: [place] [address] HPI - General General Date of Admission: 07/14/24 Date of Service: 07/14/24 Chief Complaint: Crohns disease with abdominal pain HPI Narrative JAIR WARREN, is a 39 M who presents for the evaluation of abdominal pain. He presented to the ED on 03/21/2024 with complaints of abdominal pain which he hadreported was present for >20 years and worse over the past three weeks accompanied by diarrhea. In ED he had a leukocytosis with a left shift, HGB 13.9and CT was revealing for appendicitis, thickening of the adjacent SB and 3.2cm pelvic fluid collection. He underwent exploratory laparoscopy, lysis of dense adhesions, oversewing sigmoid enterotomy, ileocecal resection and side to side anastomosis. Pathology is revealing for ileocecal junction with active chronic inflammation with ulceration, full-thickness inflammation, fibrous serosaladhesions and fistula consistent with crohn's. He reports PMH of IBS diagnosed at 18y/o, rectal abscess with I&D in 2013. He has had crampy abdominal pain with diarrhea for many years which he always suspected was secondary to IBS and food intolerances. He denies any family history of IBD. He presently complains of RLQ pain with PO intake, he is continuing to experience diarrhea and rectal "jelly" discharge. He denies any rectal pain and reports an initial weight loss of 20lbs post-op but has gained 10lb back. He is tolerating soft foods, but reports diarrhea with any PO intake.Prior to admission and immediately post he was taking IBUor Advil for pain management. He presently denies any rectal bleeding. He has 3-4 loose stools daily, but report no nocturnal stools post-op. Rectal exam is unremarkable, he does have a 2-3cm ovoid firm fullness right ischium. I have scheduled him for a colonoscopy and EGD. I have ordered MRE, MRI pelvis, labs and stool studies in anticipation of starting biologic therapy. I have reviewed with Dr. Villanueva and I will start him on Metronidazole 250mg BID (until biologic is initiated), Budesonide 9mg QD, probiotic and initiate PA for biologic once labs have resulted. A total of 90 minutes was spent on this visit reviewing EPIC and/or [facility] for associated records; previous notes (OP note 03/21, pathology, CT 03/21, CT 03/24, CT 03/27, CBC, CMP,CRP), counselingthe patient on (Reviewing pathology findings with patient and , reviewing likely Crohn's diagnosis, reviewing recommended next steps, explained in detail need to solidify the diagnosis of Crohn'swhich is highly suspected and treat inflammation before considering another alternative for cause of diarrhea such as food allergens which has requested be worked up, reviewing anatomy post-op with side to side anastomosis and lack of IC valve resulting in increased risk of diarrhea, importance of avoiding all NSAIDS, potential treatment approach for IBD), ordering tests (Colon/EGD, MRE, MRIpelvis, CBC, CMP, CRP, Celiac serologies, HBV Core, HBVsAb,HBVsAg, Vitamin B12, Vitamin D, C. Diff,GIPCR, O&P, fecal calprotectin), adjusting meds, importance of compliance with treatment and documenting the findings in the note. CBC: 05/03/2024 WNL CMP: 05/03/2024 K+ 3.2, T. Bili 1.5 CRP: Fecal Calprotectin: 05/03/2024 71 Quantiferon: 05/03/2024 negative HBVsA05/03/2024 negative HBVsAb: 05/03/2024 reactive HBV Core Ab Total: 05/03/2024 negative Colon: scheduled 07/15/2024 - per surgeon stated we must wait another 6-8 weeks post last OV (05/05/2024) due to the severity of inflammation and friability "like tissue trying to sew back together" MRE: 06/13/2024 There is a short segment of mild apparent wall thickening along the neoterminal ileum, without convincing evidence of associated active inflammation. This could be related to underdistention, or perhaps fibrosis related to previous inflammation. This would be optimally ended evaluated endoscopically. No bowel dilatation to confirm that this reflects a stricture. No other abnormal areas of abnormal bowel are confidently identified, allowing for limitations. No definite evidence of penetrating disease such as fistulization or abscess. COVID Varicella Hepattis B - positive Ab 05/03/2024 Influenza Pneumonia Shingles - he avoiding dairy, raw vegetables and alcohol - He looks better today compared to April IBD SYMPTOMS: Bowel movements are: this week stools are formed and normal, 3x a day this is an improvement prior to surgery he was having 5-8 stoolsa day and often would not make it through a meal without having diarrhea Blood noted in stools: denies Bowel movement urgency present: occasional Stool incontinence: denies Nocturnal BM's: denies Abdominal pain: RLQ and LLQ Rectal pain: denies QOL: good [facility] Medical History Wears contact lenses Alcohol use Prostate disease Dietary restriction History of diverticulitis History of Crohn's disease Non-smoker Hypertension Recurrent right inguinal hernia Home Medications ?Medication ?Instructions ?Recorded ?Last Taken ?Type Bacillus coagulans 250 million 1 tab PO DAILY 06/20/24 07/13/24 History cell chewable tablet (Digestive Advantage Probiotic Gummy) metronidazole 500 mg tablet 500 mg PO BID fistulizing Crohn's 06/20/24 07/13/24 Rx #60 tabs budesonide 3 mg 9 mg PO QAM Crohn's 07/08/24 07/13/24 History capsule,delayed,extended release multivitamin (Daily Multi-Vitamin 1 tab PO DAILY 07/0807/13/24 History tablet) amlodipine 5 mg tablet 5 mg PO BID 07/14/24 5 04:30 History losartan 50 mg-hydrochlorothiazide 2 tab PO DAILY 07/0507/13/24 History 12.5 mg tablet (Hyzaar) Allergy/AdvReac Type Severity Reaction Status Date / Time lactose (lactose intolerant) Allergy Severe OTHER Verified 07/14/24 06:08 Family History Father Arthritis Surgical History History of bowel resection History of appendectomy History of vasectomy (~03/2018) Hernia Social History Smoking Status: Never smoker alcohol intake: current alcohol intake frequency: a few times a month ROS Constitutional Constitutional: Denies fatigue, fever(s), poor appetite, weight gain or weight loss Gastrointestinal Gastrointestinal: Denies belching, bloating, change in bowel habits, change in stool character, chewing difficulty, coffee ground emesis, constipation, cramping, diarrhea, dyspepsia, dysphagia, earlysatiety, excessive flatus, fecalincontinence, heartburn, hematemesis, hematochezia, hemorrhoids, loose stools, melena, nausea, odynophagia, rectal bleeding, tenesmus, vomiting or weight changes Vital Signs Vital Signs Vital Signs: 07/14/24 06:10 07/14/24 06:12 07/14/24 06:29 Temperature 97.5 F L 97.5 F L Temperature Source Temporal Pulse Rate 71 71 Respiratory Rate 16 16 Respiratory Pattern Normal Blood Pressure 134/92 H 134/92 H Blood Pressure Mean 106 Blood Pressure Source Monitor Blood Pressure Position Semi-Fowlers Blood Pressure Location Left Arm Pulse Ox 98 98 Oxygen Delivery Method Room Air Room Air Weight Weight: 202 lb 3.2 oz Body Mass Index (BMI) 26.6 Physical Exam Const alert, oriented x3, no apparent distress and healthy appearing General Appearance: cooperative GI normal to inspection, nondistended, normoactive bowel sounds, soft to palpation,non-tender and non-distended Percussion: normal to percussion Rectal Exam: deferred Assessment & Plan Assessment/Plan (1) Diarrhea: QUALIFIERS: Diarrhea type: due to malabsorption Qualified Code(s): 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, unspecified; R19.7 - Diarrhea, unspecified (2) Abdominal pain: QUALIFIERS: Abdominal location: right lower quadrant Qualified Code(s): R10.31 - Right lower quadrant pain (3) Crohn disease: QUALIFIERS: Gastrointestinal tract location: small and large intestine Digestive disease complication type: with fistula Qualified Code(s):K50.813 - Crohn's disease of both small and large intestine with fistula PLAN: Assessment and Plan Assessment and Plan (1) Crohn disease: Status: Acute Qualifiers: Digestive disease complication type: with fistula Gastrointestinal tract location: small and large intestine Qualified Code(s): K50.813 - Crohn's disease of both small and large intestine with fistula Comment: 03/21/2024 exploratory laparoscopy, lysis of dense adhesions, oversewing sigmoidenterotomy, ileocecal resection and side to side anastomosis. Pathology is revealing for ileocecal junction with activechronic inflammation with ulceration, full-thickness inflammation, fibrous serosal adhesions and fistula consistent with crohn's. (2) Abdominal pain: Status: Acute Qualifiers: Abdominal location: right lower quadrant Qualified Code(s): R10.31 - Right lower quadrant pain (3) Diarrhea: Status: Acute Qualifiers: Diarrhea type: due to malabsorption Qualified Code(s): 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, unspecified; R19.7 - Diarrhea, unspecified Orders: Orders Miscellaneous Lab Procedure Today K50.813 - Crohn's disease of both small and large intestine with fistula, 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, unspecified, R10.31 - Right lower quadrant pain, R19.7 - Diarrhea, unspecified Medications: New metronidazole 500 mg PO BID 60 tabs 1RF fistulizing Crohn's budesonide DR-ER 6 mg (2 x 3 mg) PO QAM 60 ea 3RF Crohn's Discontinued budesonide DR-ER Take 3 capsules once every morning Discontinued Reason: Order Changed 9 mg (3 x 3 mg) PO QDAY 90 ea 1RF Plan 39y/o male presents for follow-up. He remains on Budesonide 9mg daily, but complains of insomnia and hypertension. He reports an improvement in abdominal pain and diarrhea. He continues to experienceintermittent mild RLQ and LLQ painwith occasional diarrhea. He denies any bleeding and reports an improvement in appetite and weight. His pathology is consistent with Crohn's disease, and his recent surgery suggests significant prior inflammation and complications (adhesions, fistula and reactive enteritis). His fecal calprotectin of 71 is reassuring, suggesting minimal active inflammation, and his MRE does not show clear active disease, strictures or fistulization. While the pathology from surg nikkie confirms the diagnosis, I recommend a colonoscopy to assess the full extent and severity of hiscrohn's disease. Since his fecal calprotectin was relatively low, there may not be significant inflammation, but given his historyof complications (adhesions, fistula), a full evaluation is warrantedbefore finalizing a long-term treatment plan. Due to c/o insomnia, I have decreased his Budesonide to 6mg daily and he will contact me with any increase in pain, diarrhea or obstructive symptoms. I have asked him to follow-up with PCP, while budesonide may contribute to some mild hypertension, it is not the cause of SBP in the 170's and DBP inthe 120's. does report he had issues with hypertension prior to surgery March 2024. Post colonoscopy, I recommend transitioning to maintenance therapy and with his history of fistulizing disease I recommend triple therapy with a combination of Remicade and Imuran with antibiotics for 2-3 months. Patient Instructions: Decrease Budesonide to 6mg daily Continue Metronidazole 500mg BID Follow-up with PCP for hypertension Adequate dietary intake is important, recommend he remain on a low residue diet at this time Avoid all non-steroidal medications Repeat fecal calprotectin, inflammatory markers and consider repeat imaging if symptoms suggest disease progression Link to dietary recommendations [email or web address]#[email or web address] Complete labs TPMT activity level: Test# 076433 (TPMT helps clear the medication from your system. If you have lower amounts of TPMT, you may be at higher risk for medication toxicity.) Thiopuring Metabolites: Thiopurine Metabolites Test# 678635 TPMT Genotyping Test# 622711 Vitamin D Vitamin B12 CRP Plan Details Follow Up: 6 Weeks 07/14/24 0703 Cosign Signature (if applicable): CC: Dr. Aman Diop MD; Price Villanueva DO~ Signed [facility]04-10-2025 [facility] Medical Records Department [address] [place] [address] History Physical Exam 07/14/24 0701 MR#: [id number] Acct: [id number] Name: JAIR WARREN Rep #: [id number] : 1985 39 From: Price Villanueva DO PCP: Dr. Aman Diop MD Status:[facility] Location: [place] [address] HPI - General General Date of Admission: 07/14/24 Date of Service: 07/14/24 Chief Complaint: Crohns disease with abdominal pain HPI Lowell WARREN, is a 39 M who presents for the evaluation of abdominal pain. He presented to the ED on 03/21/2024 with complaints of abdominal pain which he had reported was present for >20 years and worse over the past three weeks accompanied by diarrhea. In ED he had a leukocytosis with a left shift, HGB 13.[address] was revealing for appendicitis, thickening of the adjacent SB and 3.2cm pelvic fluid collection. He underwent exploratory laparoscopy, lysis of dense adhesions, oversewing sigmoid enterotomy, ileocecal resection and side to side anastomosis. Pathology is revealing for ileocecal junction with active chronic inflammation with ulceration, full- thickness inflammation, fibrous serosal adhesions and fistula consistent with crohn's. He reports PMH of IBS diagnosed at 18y/o, rectal abscess with I D in 2013. He has had crampy abdominal pain with diarrhea for many years which he always suspected was secondary to IBS and food intolerances. He denies any family history of IBD. He presently complains of RLQ pain with PO intake, he is continuing to experience diarrhea and rectal "jelly" discharge. He denies any rectal pain and reports an initial weight loss of 20lbs post-op but has gained 10lb back. He is tolerating soft foods, but reports diarrhea with any PO intake. Prior to admission and immediately post he was taking IBU or Advil for pain management. He presently denies any rectal bleeding. He has 3-4 loose stools daily, but report no nocturnal stools post-op. Rectal exam is unremarkable, he does have a 2- 3cm ovoid firm fullness right ischium. I have scheduled him for a colonoscopy and EGD. I have ordered MRE, MRI pelvis, labs and stool studies in anticipation of starting biologic therapy. I have reviewed with Dr. Villanueva and I will start him on Metronidazole 250mg BID (until biologic is initiated), Budesonide 9mg QD, probiotic and initiate PA for biologic once labs have resulted. A total of 90 minutes was spent on this visit reviewing EPIC and/or [facility] for associated records; previous notes (OP note 03/21, pathology, CT 03/21, CT 03/24, CT 03/27, CBC, CMP,CRP), counseling the patient on (Reviewing pathology findings with patient and , reviewing likely Crohn's diagnosis, reviewing recommended next steps, explained in detail need to solidify the diagnosis of Crohn's which is highly suspected and treat inflammation before considering another alternative for cause of diarrhea such as food allergens which has requested be worked up, reviewing anatomy post-op with side to side anastomosis and lack of IC valve resulting in increased risk of diarrhea, importance of avoiding all NSAIDS, potential treatment approach for IBD), ordering tests (Colon/EGD, MRE, MRI pelvis, CBC, CMP, CRP, Celiac serologies, HBV Core, HBVsAb, HBVsAg, Vitamin B12, Vitamin D, C. Diff, GIPCR, O P, fecal calprotectin), adjusting meds, importance of compliance with treatment and documenting the findings in the note. CBC: 05/03/2024 WNL CMP: 05/03/2024 K+ 3.2, T. Bili 1.5 CRP: Fecal Calprotectin: 05/03/2024 71 Quantiferon: 05/03/2024 negative HBVsA05/03/2024 negative HBVsAb: 05/03/2024 reactive HBV Core Ab Total: 05/03/2024 negative Colon: scheduled 07/15/2024 - per surgeon stated we must wait another 6-8 weeks post last OV (05/05/2024) due to the severity of inflammation and friability "like tissue trying to sew back to gether" MRE: 06/13/2024 There is a short segment of mild apparent wall thickening along the neoterminal ileum, without convincing evidence of associated active inflammation. This could be related to underdistention, or perhaps fibrosis related to previous inflammation. This would be optimally ended evaluated endoscopically. No bowel dilatation to confirm that this reflects a stricture. No other abnormal areas of abnormal bowel are confidently identified, allowing for limitations. No definite evidence of penetrating disease such as fistulization or abscess. COVID Varicella Hepattis B - positive Ab 05/03/2024 Influenza Pneumonia Shingles - he avoiding dairy, raw vegetables and alcohol - He looks better today compared to April OV IBD SYMPTOMS: Bowel movements are: this week stools are formed and normal, 3x a day this is an improvement prior to surgery he was having 5-8 stools a day and often would not make it through a meal without having diarrhea Blood noted in st (more content not included)...[facility] 07-14-2024 Consult note [facility] Medical Records Department [address] [place] [address] Pre-Anesthesia Evaluation 07/14/24 0623 MR#: [id number] Acct: [id number] Name: JAIR WARREN Rep #:[id number] : 1985 39 From: Mk Lomeli MD PCP: Dr. Aman Diop MD Status:REG S DC Y Race: C Location: [place] [address] ASA Classification* ASA Classification ASA Classification: 2 Assessment & Plan Anesthesia* Anesthesia Assessment Anesthesia Assessment: Discussed sedation and/or anesthesia options, risks, benefits, and alternatives with patient/parents/legal guardian/POA. Questions invited. The patient/parents/legal guardian/POA seems to understand and agrees to proceedwith anesthesia plan. Reviewed the physical assessment, medical history, allergy history and patient home medications list prior to surgery/procedure/anesthetic and documented any changes. Performed airway and anesthesia risk assessments. Anesthesia Type Anesthesia Type: MAC History Source History Obtained from:: Patient and Chart Anesthesia Focused Assessment* Temperature: 97.5 F Pulse Rate: 71 Blood Pressure: 134/92 Respiratory Rate: 16 Pulse Ox: 98 Oxygen Delivery Method: Room Air Airway Assessment Mouth opens: >3 cm Mallampati Score: III Teeth Condition: Missing (Patient has several missing molars. Rest are tight.) Focused Labs Anesthesia Preop lab: CBC WBC 7.1 K/mm3 (4.4-11.0) 05/03/24 16:43 05/03/24 RBC 4.97 M/mm3 (4.6-6.2) 05/03/24 16:43 05/03/24 Hgb 13.7 g/dL (13.0-16.5) 05/03/24 16:43 05/03/24 Hct 41.6 % (40-54) 05/03/24 16:43 05/03/24 Plt Count 234 K/mm3 (150-450) 05/03/24 16:43 05/03/24 CHEMISTRY Potassium 3.2 mmol/L (3.5-5.1) L 05/03/24 16:43 05/03/24 Sodium 138 mmol/L (136-145) 05/03/24 16:43 05/03/24 BUN 7 mg/dL (7-18) 05/03/24 16:43 05/03/24 Creatinine 0.83 mg/dL (0.70-1.30) 05/03/24 16:43 05/03/24 Glucose 95 mg/dL (74-106) 05/03/24 16:43 05/03/24 COAG Pre-Assessment Diagnosis/Proposed Procedure Planned Operative Procedure(s): COLONOSCOPY/EGD Anesthesia History 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 When Was Last Pacemaker Check QUESTION #4 FULL TEXT: You/Your Family Experience fever (hyperthermia) with Anesthesia Last Oral Intake Last Oral intake: Last Oral Intake NPO since 02:30 07/14/24 06:12 Meds taken in AM with sips of Yes 07/14/24 06:12 water? Meds patient instructed to take am of surgery Any additional information?: Yes NPO since: 02:30 (Patient finished prep at 2:30AM.) Meds taken in AM with sips of water?: Yes PONV PONV - terminal superintendent: PONV - terminal superintendent Female No 07/08/24 12:09 HX of Motion Sickness No 07/08/24 12:09 HX of N/V After Surgery No 07/08/24 12:09 Non-Smoker Yes 07/08/24 12:09 Duration of Surgery greater No 07/08/24 12:09 than 60 minutes Number of Risk Factors 1 07/08/24 12:09 PONV Score Low Risk 07/08/24 12:09 Height & Weight Height & Weight: Anesthesia: Height & Weight Height 6 ft 1 in 07/14/24 06:12 Weight: 91.716 kg 07/14/24 06:12 Body Mass Index (BMI) 26.6 07/14/24 06:12 Respiratory Assessment Respiratory Assessment - terminal superintendent: Respiratory Tract Infection Hx - terminal superintendent Hx Respiratory Tract Infection No 07/08/24 12:09 Any additional information?: Yes Hx Respiratory Tract Infection: Yes (Cough fromallergies recently.) STOP Sleep Apnea STOP Sleep Apnea - terminal superintendent: STOP Sleep Apnea - terminal superintendent Hx Hypertension Yes: RECENTLY STARTED MED, 07/08/24 12:09 NOT CONTROLLED, INSTRUCTED TO CALL PCP Hx Sleep Apnea No 07/08/24 12:09 CPAP BIPAP Do you snore loudly (louder No 07/08/24 12:09 than talking or can be heard Do you often feel tired/ No 07/08/24 12:09 fatigued/ sleepy during daytime? Has anyone observed you stop No 07/08/24 12:09 breathing during sleep? STOP Results Negative 07/08/24 12:09 QUESTION #5 FULL TEXT : Do you snore loudly (louder than talking or can be heard through closeddoors)? 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 Specify any problems Hx of Preganancy in last 3 N/A 07/08/24 12:09 Months Nurse Filling Out Transfusion VCHRISTIN 07/08/24 12:09 & Questions: Date: 07/08/24 07/08/24 12:09 Time: 12:11 07/08/24 12:09 Patient unable to answer at this time (ie. confused, unrespo /Reproduction History /Reproductive History - terminal superintendent: /Reproductive Hx- terminal superintendent Hx Now Gestational Age (in weeks): EDC: Hx Hx Para Hx Section SAB Active Medications Active Medications: Current Medications Generic Name Dose Route Start Last Admin Trade Name Freq PRN Reason Stop Dose Admin Sodium Chloride 10 - 40 ml 06/13/24 10:57 0.9% Saline Lock 10 Ml Syringe IV UD PRN SALINE FLUSH PFS Medical History Wears contact lenses Alcohol use Prostate disease Dietary restriction History of diverticulitis History of Crohn's disease Non-smoker Hypertension Recurrent right inguinal hernia Home Medications ?Medication ?Instructions ?Recorded ?Last Taken ?Type Bacillus coagulans 250 million 1 tab PO DAILY 06/20/24 07/13/24 History cell chewable tablet (Digestive Advantage Probiotic Gummy) metronidazole 500 mg tablet 500 mg PO BID fistulizing Crohn's 06/20/24 07/13/24 Rx #60 tabs budesonide 3 mg 9 mg PO QAM Crohn's 07/08/24 07/13/24 History capsule,delayed,extended release multivitamin (Daily Multi-Vitamin 1 tab PO DAILY 07/0807/13/24 History tablet) amlodipine 5 mg tablet 5 mg PO BID 07/14/24 5 04:30 History losartan 50 mg-hydrochlorothiazide 2 tab PO DAILY 07/0507/13/24 History 12.5 mg tablet (Hyzaar) Allergy/AdvReac Type Severity Reaction Status Date / Time lactose (lactose intolerant) Allergy Severe OTHER Verified 07/14/24 06:08 Family History Father Arthritis Surgical History History of bowel resection History of appendectomy History of vasectomy (~03/2018) Hernia Social History Smoking Status: Never smoker alcohol intake: current alcohol intake frequency: a few times a month Review of Systems (Anesthesia) ROS Narrative System reviewed and no additional complaints, except as documented. 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 07/14/24 0629 latisha RAMAN> Date _ Mk Ramiresteelatisha Cosigner Signature: Date CC: ~ Signed [facility]01-28-2025 Evaluation note* Diagnosis Onset Date Resolution Status Admit Date Abdominal pain acute May 032024 2:48pm Crohn disease acute April 2:48pm Diarrhea acute May 03, 2024 2:48pm [facility] Work Phone: 1(530) 144-335601-28-2025 Evaluation note* Diagnosis Onset Date Resolution Status Admit Date Abdominal pain acute May 032024 2:48pm Crohn disease acute April 2:48pm Diarrhea acute May 03, 2024 2:48pm Abdominal pain acute June 3:02pm Crohn disease acute June 20, 2024 3:02pm Diarrhea acute June 20 3:02pm [facility] Work Phone: 1(635) 566-476901-28-2025 Evaluation note* Diagnosis Onset Date Resolution Status Admit Date Abdominal pain acute May 032024 2:48pm Crohn disease acute April 2:48pm Diarrhea acute May 03, 2024 2:48pm Abdominal pain acute June 3:02pm Crohn disease acute June 20, 2024 3:02pm Diarrhea acute June 20 3:02pm Abdominal pain acute July 5:42am Crohn disease acute July 14, 2024 5:42am Diarrhea acute July 14 5:42am [facility] Work Phone: 1(779) 878-444012-28-2024 [facility] SUMMARY/TRANSFER NOTE NAME ACCOUNT SEX AGE ADMIT DISCHARGE PT MED. RECORD# NUMBER DATE DATE TYPE JAIR WARREN [id number] M 38 03/21/24 Nirmal HAMEED [id number] ROOM: 309 DATE OF : 1985 ATTENDING PHYSICIAN: Jennifer Warren FINAL DIAGNOSES: 1. Appendicitis with perforation and peritonitis. 2. Ileocecal phlegmon. 3. Dense adhesions. 4. Contamination with stool and purulent material, sigmoid perforation. PROCEDURES: Procedure performed on February 20, 2024 was exploratory laparoscopy, exploratory laparotomy with midline incision, lysis of dense adhesions, ileocecal resection with [id number] anastomosis, repair of sigmoid enterotomy. PHYSICAL EXAMINATION: VITAL SIGNS: Today, he is afebrile. Pulse is 79, respiratory rate 17 to 18, blood pressure 123/87, oxygen saturation is 96 t 97% on room air. Weight is pending. Intake so far today was 1855 mL, output 1018 mL. Hemovac one put out 8 mL, Hemovac two put out 60 mL. NG tube put out 100 mL overnight. Catheter put out 850 mL of urine. LUNGS: Respirations unlabored. ABDOMEN: Unchanged. EXTREMITIES: Unremarkable. DIAGNOSTIC DATA: Laboratories: White blood cell count is decreased markedly to 11.8, hemoglobin 11.0, and platelets are 194,000. Differential showed 88.4% neutrophils, which is slightly improved from yesterday. Sodium is 140, potassium 3.8, chloride 106, creatinine 0.94. Calcium is 8.1. Total protein is 5.4. Albumin is 2.1. Total bilirubin is 2.3, which is still somewhat elevated. Pathology report is pending. HOSPITAL COURSE: (See dictated history and physical, progress notes, and operative note) Mr. Jair Warren is a pleasant 38-year-old gentleman with abdominal pain who came to the emergency room. He was found to have a surgical abdomen. He underwent surgery (see operative notes), and had a large phlegmon like mass with leakage, peritonitis, and contamination from the sigmoid area. He underwent resection and repair, and was stable postoperatively (see operative note). ASSESSMENT/PLAN: The patient still has an ileus, which is to be expected after this prolonged surgery. He and the family have requested transfer for speciality care, colorectal surgery, and gastroenterology. In addition, I have explained the options, the alternatives, and his very high risk for either leakage or infectious problems. They appear to understand. They have no further questions and wish to proceed as outlined. I have discussed his findings with personnel from the [facility]. The patient has been accepted in transfer by Dr. Vivek Edward. Page 1 of 2 JAIR WARREN Discharge Summary/Transfer Note JAIR WARREN : 1985 Dictated By: Jennifer Warren MD 03/23/24 13:13 JOB #: [id number] Transcribed By: am 03/23/24 14:25 Electronically signed by: E-Sign Dr. Jennifer Warren MD 04/02/24 12:40 Page 2 of 2 JAIR WARREN [facility] PROGRESS NOTE NAME ACCOUNT SEX AGE ADMIT DISCHARGE PT MED. RECORD# NUMBER DATE DATE TYPE JAIR WARREN [id number] M 38 03/21/24 Nirmal HAMEED [id number] ROOM: 309 DATE OF : 1985 DICTATING PHYSICIAN: Jennifer Warren DATE OF SERVICE: March 22, 2024 SUBJECTIVE: Today, Jair feels somewhat better. He has less pain. He was able to get out of bed. OBJECTIVE: He is afebrile. Pulse is 85, respiratory rate 24-18, blood pressure 126/86, and oxygen saturation 97-98% on room air. Weight is 220 pounds, 1 ounce, down slightly. Intake so far today is 2090 mL and output 1460 mL. Hemovac #1 put out minimal drainage. Hemovac #2 put out 60 mL. NG put out 150 mL, and it is somewhat fuchs-colored or tea-colored. The Hemovac drainage is mostly serous. Respirations are unlabored. Abdomen is nondistended. Binder is intact. Calves are nontender. DIAGNOSTIC DATA: Laboratories show a white blood cell count of 17.6 and hemoglobin of 11.7, down slightly. Differential shows 90% neutrophils. Lymphocytes are 2.1%. Sodium is 137, potassium 3.9, chloride 104, CO2 of 27.6, BUN 9, creatinine 1.04, glucose 151, SGOT 23, SGPT 28, alkaline phosphatase 52, total protein 5.5, and albumin 2.3. Pathology report is pending. ASSESSMENT/PLAN: 1. GI function. The patient still has ileus, which is to be expected. I have discussed this with [facility] regarding transfer and am awaiting a final reply from them for further consultation with a specialist. 2. Hypokalemia, improved. 3. Leukocytosis, normal response after major surgery with contamination. We will reevaluate. 4. Nutrition. I have discussed with the patient the possible need for supplemental nutrition if he has prolonged ileus. I have encouraged him to ambulate. The patient and his spouse appear to understand, concur and have no further questions. Dictated By: Jennifer Warren MD 03/22/24 16:57 JOB #: [id number] Transcribed By: kelin 03/22/24 17:49 Electronically signed by: E-Sign Dr. Jennifer Warren MD 04/02/24 12:40 Page 1 of 1 JAIR WARREN Progress [facility] 04-02-2024 [facility] CONSULTATION REPORT/HISTORY AND PHYSICAL NAME ACCOUNT SEX AGE ADMIT DISCHARGE PT MED. RECORD# NUMBER DATE DATE TYPE JAIR WARREN [id number] M 38 03/21/2024 2 YOSEPH [id number] ROOM: [facility] DATE OF : 1985 DICTATING PHYSICIAN: Jennifer Warren DATE OF CONSULTATION: March 21, 2024 REASON FOR CONSULTATION: Abdominal pain. HISTORY OF PRESENT ILLNESS: Jair Warren is a 38-year-old gentleman who came to the emergency room with abdominal pain. He states the pain is mostly in the right lower abdomen, but somewhat towards the midline. He states he has had pain like this for approximately 3 weeks, and it is worsened since Thursday. Now, the pain is most severe with palpation at McBurney's point. When asked to rate the pain, he was rather vague. He states that it is occasionally aching any exacerbates with local palpation. He also notes on further questioning that actually he has had abdominal pain for at least 20 years. He was also told he had irritable bowel syndrome and has had some diarrhea or loose stools for at least 20 years. He also had a recent episode of blood, which was described as red blood, with his bowel movement. He has had no melena. He has no history of abdominal surgery previously. He does not recall any peptic ulcer disease. He thinks occasionally foods such as fruits may make his pain worse, but it is rather difficult to describe any specific food intolerances other than that. He does note that occasionally he feels warm and diaphoretic, and has also had some chills. Temperature has been measured up to 99 degrees, but it is rather vague and nondescript. The patient does not recall any increased cough, increased phlegm, increased sputum; although, his notes that he seems to have more phlegm when he cough than would be expected. He has no chest pain or shortness of breath. He has no known thyroid, kidney, liver, heart, or lung disease. He has never had a colonoscopy or upper endoscopy. He does not recall having had peptic ulcer disease. The patient came to the emergency room, and in the emergency room was found to have abdominal pain. He was given Dilaudid twice. He was found to have a white blood cell count of 14,200 with 88.8% neutrophils, hemoglobin was 13.9, platelets 222,000. His sodium is 138, potassium 3.3, creatinine 1.02. Total bilirubin is 1.6. He then had a CAT scan, which showed a thickened appendix at 1.3 cm and periappendiceal fat stranding consistent with appendicitis. There was thickening of the adjacent small bowel mucosa, and there is a 3.2 cm pelvic fluid collection, which could possibly represent abscess versus free fluid collection. There was no free air of adenopathy noted. He did have some degenerative changes of the spine, see reports from Radiology. 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 I have explained that the abdominal pain and the location may represent appendicitis, possibly perforation, and possible abscess formation. I have recommended intravenous fluids, antibiotics, and was called while I was in the operating room and had already recommended antibiotics to be given, Zosyn 3.375 and Flagyl 1 gram IV. In addition, he has had some IV fluid. He has no potassium supplementation. He still has significant abdominal pain. I have recommended surgery. I have explained laparoscopic versus open appendectomy. I have explained this is done under anesthesia. I have explained the risks may include bleeding, pain, infection, scarring. I have explained the risk of spreading infection. I have explained possible removal of a normal appendix, possible drain placement. I have explained the postoperative instructions, restrictions, diet, medications, and follow-up plan. The patient appears to understand. I have explained the possibility of laparoscopic versus open surgery, and he appears to understand, has no further questions, wishes to proceed. His is present and she concurs. She has no further questions. PAST MEDICAL HISTORY: (1) History of IBS. He has never had upper lower endoscopy. Full details are not available. (2) GI bleed, see above. I have strongly encouraged him to have both upper and lower endoscopy, and further evaluation. Of concern especially is the GI bleeding and the prolonged history of pain. The patient and spouse appear to understand, concur, and have no further questions. In the meantime, I feel the appendicitis is more worrisome and needs to be addressed. (3) Hypokalemia. The patient can be supplemented per IV, and we will repeat evaluation. CURRENT MEDICATIONS: See med reconciliation sheet and nursing notes. ALLERGIES: No known medical allergies. FAMILY HISTORY: No carcinoma. No bleeding diathesis. No anesthetic allergies. Otherwise, non (more content not included)...[facility] 03-29-2024 NoteHNO ID: [id number] Author: STACEY VALERO APRN.CNP Service: Colorectal Author Type: Nurse Practitioner Type: Progress Notes Filed: 04/07/2024 12:51 Note Text: Documentation Query Please clarify the etiology of abdominal pain for this admission Other abdominal pain related to crohn's disease with ileal stenosis This document will become part of the patient's medical record.[facility]12-23-2024 NoteHNO ID: [id number] Author: GERMAN HUFFMAN RN Service: Care Management Author Type: Registered Nurse Type: Care Mgt Progress Note Filed: 03/28/2024 13:25 Note Text: CARE MANAGEMENT PROGRESS NOTE SERVICE DATE: 03/28/2024 SERVICE TIME: 1:21 PM LOS: 5 days Post-Acute Discharge Planning Patient Goal(s): General wellness Anticipated # of Days Until Discharge: TBD Transport at Discharge: Spouse to drive home at [place] Needs Prior to Discharge: Needs Prior to Discharge: To Be Determined Post-Acute Discharge Plan: Likely home with self care. Off Zosyn SIGNATURE: German Huffman RN PATIENT NAME: Jair Warren DATE: March 28, 2024 TIME: 1:[address] [facility]12-23-2024 NoteHNO ID: [id number] Author: STACEY VALERO APRN.CNP Service: Colorectal Author Type: Nurse Practitioner Type: Progress Notes Filed: 03/28/2024 09:39 Note Text: SERVICE DATE: 03/28/2024 SERVICE TIME: 7:59 AM COLORECTAL SURGERY PROGRESS NOTE Mr. Warren is a 38y male admitted from OSH with concern for sigmoid colon perforation status post appendectomy. Repeat CT scan 03/24 without evidence of leak or fluid collection. Repeat CT scan with IV/rectal contrast 03/27 noted extensive inflammatory changes surrounding anastomosis, but without identified extra luminal contrast or organized fluid collection. Subjective INTERVAL HPI and PERTINENT ROS: VSS, afebrile; NGT remains in place to gravity; hemovac drains x 2 with minimal serosanguinous output MEDICATIONS: Current Facility-Administered Medications Medication Dose Route Frequency enoxaparin 40 mg injection (LOVENOX) 40 mg SUBCUTANEOUS DAILY NaCl 0.9% iv flush bag 20 mL INTRAVENOUS PRN piperacillin-tazobactam iv piggyback 3.375 g in dextrose (iso-osmotic) 50 mL (ZOSYN) 3.375 g INTRAVENOUS q 6 H acetaminophen 650 mg tab(s) (TYLENOL) 650 mg ORAL q 6 H Or acetaminophen 650 mg CUP (TYLENOL) 650 mg ORAL q 6 H ondansetron orally disintegrating 4 mg tab(s) (ZOFRAN ODT) 4 mg ORAL q 6 H PRN Or ondansetron (PF) 4 mg injection (ZOFRAN) 4 mg INTRAVENOUS q 6 H PRN naloxone 0.1 mg injection (NARCAN) 0.1 mg INTRAVENOUS q 2 MIN PRN phenol 1 [place] (CHLORASEPTIC) 1 [place] MUCOUS MEMBRANE (TOPICAL MOUTH AND THROAT) q 2 H PRN Or benzocaine-menthol 1 Lozenge (CHLORASEPTIC) 1 Lozenge MUCOUS MEMBRANE (TOPICAL MOUTH AND THROAT) q 2 H PRN pantoprazole 40 mg injection (PROTONIX) 40 mg INTRAVENOUS DAILY (6 AM) iv contrast (radiology procedure) INTRAVENOUS DIRECTED PRN enteric contrast (radiology procedure) ORAL DIRECTED PRN HYDROmorphone 0.2 mg injection (DILAUDID) 0.2 mg INTRAVENOUS q 3 H PRN Objective PHYSICAL EXAM: BP 118/80 Pulse 65 Temp 36.3 ?C (97.3 ?F) (Oral) Resp 16 Wt 90.7 kg (200 lb) SpO2 96% General/Neuro: intact, appropriate; appears to be more comfortable sitting in bed Abdomen: soft, mildly tender, hemovac drains with minimal serosanguinous output Lines, Drains, and Airways Line Duration Peripheral 03/24/24 0955 Left Antecubital 20 Gauge 3 days Drain Duration Drain/Tube 03/23/24 1730 Hemovac Left Lower Quadrant Flank 4 days Drain/Tube 03/23/24 1730 Hemovac Right Lower Quadrant Flank 4 days GI/ Feeding 03/23/24 1707 Gastric Left Naris 4 days Reviewed drains and needs to be continued: post-surgical management DATA: Diagnostic tests reviewed for today's visit: Most recent labs and imaging results. LABS: Recent Labs 03/27/24 0827 03/26/24 0743 WBC 8.50 7.23 HB 11.5* 11.7* HCT 34.1* 34.7* PLT 274 234 NA 137 137 K 3.8 3.8 CHLOR 101 103 CO2 22 23 BUN 11 11 CREAT 0.84 0.87 GLUC 89 102* CA 9.2 8.6 MG 2.3 2.3 P 3.5 -- *A review of daily goals, interventions, and plan of care with the multidisciplinary team and patient has been conducted. The patient?s concerns have been addressed and he/she agrees to proceed with today?s plan of care. Assessment AND Plan Gastrointestinal * Abdominal pain- (present on admission) Continue multimodal pain management. Will transition to PO pain meds today. Avoid ketorolac (and other NSAIDS) in the setting of potential Crohn's disease, patient and updated of this. Appendicitis- (present on admission) S/p appendectomy at OSH, concern for perforation due to the extensive inflammation. Repeat CT scan over the weekend with extensive inflammatory changes surrounding the anastomosis, but no evidence of leak/fluid collection. Continue NGT to suction until return of bowel function - follow BRYCE output - OOB, ambulate - IS Q1 hour while awake - pain control as listed - remove NGT today, if he does well, may advance diet - OK to stop zosyn Medication and Non-Pharmacologic VTE Prophylaxis/Anticoagulants Anticoagulant AND Antiplatelet Medications (From admission, onward) Start Dose Route Frequency Last Action Ordered Stop 03/23/24 1800 enoxaparin 40 mg injection (LOVENOX) (Surgical Risk Categories) 40 mg SUBCUTANEOUS DAILY Given, 03/27 0845 03/23/24 1743 -- 03/23/24 1745 pneumatic compression stockings (pr,oh) VTE Prophylaxis: VTE prophylaxis appropriate Plan of care discussed with: Provider, RN, Patient and Care Management SIGNATURE: Stacey Valero APRN.CNP PATIENT NAME: Jair Warren DATE: March 28, 2024 TIME: 7:59 [facility]12-22-2024 NoteHNO ID: [id number] Author: LILLY INIGUEZ MD Service: Colorectal Author Type: Resident Type: Progress Notes Filed: 03/27/2024 16:26 Note Text: COLORECTAL SURGERY PROGRESS NOTE ASSESSMENT AND PLAN: Mr. Warren is a 38y male admitted from OSH with concern for sigmoid colon perforation status post appendectomy. Repeat CT scan 03/24 without evidence of leak or fluid collection. Plan: Neuro/Pain- Pain control: APAP, d/c dilaudid CD TECHNICIAN, change to dilaudid IV, change to oral when tolerating PO Cardiac- Vitals: HDS Respiratory- Encourage incentive spirometry GI- Zofran PRN. CLD, keep NGT. Blue gatorade to check for output in drains. NGT to gravity today. CTAP with IV, PO and rectal contrast FEN- IV fluids LR 50/hr. Electrolyte repletion prn. Renal- Monitor UOP Heme- H/H stable, no indication for transfusion at this time ID- Continue zosyn Endo- No hx of glycemic issues Wound- Remove boris today MSK- PT/OT consult not indicated Prophylaxis- SCD and lovenox, OOB and IS Dispo - RNF INTERVAL EVENTS / PERTINENT REVIEW OF SYSTEMS: No acute events overnight. Pain well controlled. No flatus yet. OBJECTIVE: PHYSICAL EXAM: 03/27/24 0006 03/27/24 0400 03/27/24 0717 03/27/24 1616 BP: 125/71 126/77 140/89 Pulse: 64 69 63 Resp: 18 18 16 16 Temp: 36.9 ?C (98.4 ?F) 36.5 ?C (97.7 ?F) 36.8 ?C (98.2 ?F) TempSrc: Oral Oral Oral SpO2: 96% 97% 97% 98% Weight: General: AANDO x 3, no acute distress Heart: RRR Lungs: non-labored breathing on RA Abd: soft, appropriately tender, non-distended, non-peritonitic Incisions: clean, dry and intact. Boris in place, drains SS b/l Ext: no edema DATA: Laboratory: CBC, Coags, BMP, Mg, Phos Recent Labs 03/27/24 0827 03/26/24 0743 03/25/24 0617 03/25/24 0616 WBC 8.50 7.23 8.40 -- HB 11.5* 11.7* 11.7* -- HCT 34.1* 34.7* 35.8* -- PLT 274 234 238 -- NA 137 137 -- 138 K 3.8 3.8 -- 3.7 CHLOR 101 103 -- 103 CO2 22 23 -- 25 BUN 11 11 -- 10 CREAT 0.84 0.87 -- 0.83 GLUC 89 102* -- 92 CA 9.2 8.6 -- 8.5 MG 2.3 2.3 -- 2.3 P 3.5 -- -- 2.9 Liver Function, Amylase, AND Lipase LDA: Lines, Drains, and Airways Line Duration Peripheral 03/24/24 0955 Left Antecubital 20 Gauge 3 days Drain Duration Drain/Tube 03/23/24 1730 Hemovac Left Lower Quadrant Flank 3 days Drain/Tube 03/23/24 1730 Hemovac Right Lower Quadrant Flank 3 days GI/ Feeding 03/23/24 1707 Gastric Left Naris 3 days SURGERY/PROCEDURE: * Surgery not found *[facility]12-21-2024 NoteHNO ID: [id number] Author: VIVEK FITZPATRICK MD, PhD Service: Colorectal Author Type: Resident Type: Progress Notes Filed: 03/26/2024 12:53 Note Text: Attestation signed by Vivek Fitzpatrick MD, PhD at 03/26/2024 12:53 PM [facility] STAFF PHYSICIAN NOTE OF PERSONAL INVOLVEMENT IN CARE I have reviewed the history and physical exam obtained and documented by the resident and I personally participated in the rebollar components. I have confirmed and edited as necessary, the PFSH and ROS obtained by others. I have discussed the case and management of the patient's care. The following comments revise or confirm relevant rebollar components of the note. Abdomen soft, pain well controlled Wound is clean NGT in place with clear output NO bowel function OK to have CLD with NGT SBFT if no bowel function by tomorrow Vivek Fitzpatrick MD, PhD Date of Service: March 26, 2024 Time Spent: 35 minutes, >50% of the time was spent in counseling and coordination of care as outlined in the plan above. COLORECTAL SURGERY PROGRESS NOTE ASSESSMENT AND PLAN: Mr. Warren is a 38y male admitted from OSH with concern for sigmoid colon perforation status post appendectomy. Repeat CT scan 03/24 without evidence of leak or fluid collection. Plan: Neuro/Pain- Pain control: APAP, dilaudid CD TECHNICIAN. Plan to wean CD TECHNICIAN tomorrow, 03/27 Cardiac- Vitals: HDS Respiratory- Encourage incentive spirometry GI- Zofran PRN. CLD, keep NGT. Blue gatorade to check for output in drains. Potential clamp trial 03/27 FEN- IV fluids LR 50/hr. Electrolyte repletion prn. Renal- Monitor UOP Heme- H/H stable, no indication for transfusion at this time ID- Continue zosyn Endo- No hx of glycemic issues Wound- Remove boris today MSK- PT/OT consult not indicated Prophylaxis- SCD and lovenox, OOB and IS Dispo - RNF INTERVAL EVENTS / PERTINENT REVIEW OF SYSTEMS: No acute events overnight. Pain well controlled. No flatus yet. OBJECTIVE: PHYSICAL EXAM: 03/25/24200503/26/24 0022 03/26/24 0400 03/26/24 0710 BP: 140/88 115/68 Pulse: 63 (!) 56 Resp: 18 18 17 Temp: 36.8 ?C (98.2 ?F) 36.6 ?C (97.9 ?F) TempSrc: Oral SpO2: 95% 98% 98% 97% Weight: General: AANDO x 3, no acute distress Heart: RRR Lungs: non-labored breathing on RA Abd: soft, appropriately tender, non-distended, non-peritonitic Incisions: clean, dry and intact. Boris in place, drains SS b/l Ext: no edema DATA: Laboratory: CBC, Coags, BMP, Mg, Phos Recent Labs 03/26/24 0743 03/25/24 0617 03/25/24 0616 03/24/24 0714 WBC 7.23 8.40 -- 8.01 HB 11.7* 11.7* -- 11.0* HCT 34.7* 35.8* -- 34.4* PLT 234 238 -- 186 NA 137 -- 138 135* K 3.8 -- 3.7 3.9 CHLOR 103 -- 103 104 CO2 23 -- 25 19* BUN 11 -- 10 8* CREAT 0.87 -- 0.83 0.77 GLUC 102* -- 92 98 CA 8.6 -- 8.5 8.5 MG 2.3 -- 2.3 2.1 P -- -- 2.9 2.2* Liver Function, Amylase, AND Lipase Recent Labs 03/24/24 0714 TPROT 5.7* ALB 2.8* ALT 17 AST 19 ALKPHOS 61 TBILI 1.3 LDA: Lines, Drains, and Airways Line Duration Peripheral 03/24/24 0955 Left Antecubital 20 Gauge 2 days Drain Duration Drain/Tube 03/23/24 1730 Hemovac Left Lower Quadrant Flank 2 days Drain/Tube 03/23/24 1730 Hemovac Right Lower Quadrant Flank 2 days GI/ Feeding 03/23/24 1707 Gastric Right Naris 2 days SURGERY/PROCEDURE: * Surgery not found *[facility]12-21-2024 NoteHNO ID: [id number] Author: MATT GOMEZ, ? Service: Pharmacy Author Type: Cafeteria Table Attendant Type: Plan of Care Filed: 03/26/2024 10:38 Note Text: Insurance investigation completed Patient has active prescription insurance: Yes - Patient's insurance is in-network with [facility] Insurance loaded into Blanket: Yes Test claim was completed to verify insurance is active: Successful Any questions, please reach out to your medication pharmacy benefits coordinator. Patient insurance: Commercial Matt Gomez, Cafeteria Table Attendant Medication Account Specialist [id number] [facility]12-20-2024 NoteHNO ID: [id number] Author: GERMAN HUFFMAN RN Service: Care Management Author Type: Registered Nurse Type: Care Mgt Progress Note Filed: 03/25/2024 16:24 Note Text: CARE MANAGEMENT WEEKEND PLANNING NOTE NO WEEKEND DISCHARGE Disposition: TBD, Likely home with self care Anticipated Discharge Date: TBD Weekend Quick Mixer Operator Pager #: Please see Treatment Team for Care Management Weekend/Holiday coverage. SIGNATURE: German Huffman RN PATIENT NAME: Jair Warren DATE: March 25, 2024 TIME: 4:[address] [facility]12-20-2024 NoteHNO ID: [id number] Author: STACEY VALERO APRN.CNP Service: Colorectal Author Type: Nurse Practitioner Type: Progress Notes Filed: 03/25/2024 10:39 Note Text: SERVICE DATE: 03/25/2024 SERVICE TIME: 10:39 AM COLORECTAL SURGERY PROGRESS NOTE Mr. Warren is a 38y male admitted from OSH with concern for sigmoid colon perforation status post appendectomy. Repeat CT scan 03/24 without evidence of leak or fluid collection. Subjective INTERVAL HPI and PERTINENT ROS: VSS, afebrile, no acute events overnight; NGT in place, no flatus/BM yet; endorses pain is improved MEDICATIONS: Current Facility-Administered Medications Medication Dose Route Frequency enoxaparin 40 mg injection (LOVENOX) 40 mg SUBCUTANEOUS DAILY NaCl 0.9% iv flush bag 20 mL INTRAVENOUS PRN piperacillin-tazobactam iv piggyback 3.375 g in dextrose (iso-osmotic) 50 mL (ZOSYN) 3.375 g INTRAVENOUS q 6 H acetaminophen 650 mg tab(s) (TYLENOL) 650 mg ORAL q 6 H Or acetaminophen 650 mg CUP (TYLENOL) 650 mg ORAL q 6 H ondansetron orally disintegrating 4 mg tab(s) (ZOFRAN ODT) 4 mg ORAL q 6 H PRN Or ondansetron (PF) 4 mg injection (ZOFRAN) 4 mg INTRAVENOUS q 6 H PRN naloxone 0.1 mg injection (NARCAN) 0.1 mg INTRAVENOUS q 2 MIN PRN HYDROmorphone CD TECHNICIAN 0.5 mg/mL in NaCl 0.9% 100 mL INTRAVENOUS CONTINUOUS phenol 1 [place] (CHLORASEPTIC) 1 [place] MUCOUS MEMBRANE (TOPICAL MOUTH AND THROAT) q 2 H PRN Or benzocaine-menthol 1 Lozenge (CHLORASEPTIC) 1 Lozenge MUCOUS MEMBRANE (TOPICAL MOUTH AND THROAT) q 2 H PRN pantoprazole 40 mg injection (PROTONIX) 40 mg INTRAVENOUS DAILY (6 AM) dextrose 5% in NaCl 0.9% iv infusion 75 mL/hr INTRAVENOUS CONTINUOUS Objective PHYSICAL EXAM: BP 119/81 Pulse 65 Temp 36.6 ?C (97.9 ?F) (Oral) Resp 12 Wt 90.7 kg (200 lb) SpO2 94% General/Neuro: intact, appropriate; appears to be more comfortable sitting in bed Abdomen: soft, mildly tender, hemovac drains with minimal serosanguinous output No skin breakdown noted. Lines, Drains, and Airways Line Duration Peripheral 03/24/24 0955 Left Antecubital 20 Gauge 1 day Drain Duration Drain/Tube 03/23/24 1730 Hemovac Left Lower Quadrant Flank 1 day Drain/Tube 03/23/24 1730 Hemovac Right Lower Quadrant Flank 1 day GI/ Feeding 03/23/24 1707 Gastric Right Naris 1 day Patient does not currently have any lines, drains or airways. DATA: Diagnostic tests reviewed for today's visit: Most recent labs and imaging results. LABS: Recent Labs 03/25/24 0617 03/25/24 0616 03/24/24 0714 WBC 8.40 -- 8.01 HB 11.7* -- 11.0* HCT 35.8* -- 34.4* PLT 238 -- 186 NA -- 138 135* K -- 3.7 3.9 CHLOR -- 103 104 CO2 -- 25 19* BUN -- 10 8* CREAT -- 0.83 0.77 GLUC -- 92 98 CA -- 8.5 8.5 MG -- 2.3 2.1 P -- 2.9 2.2* *A review of daily goals, interventions, and plan of care with the multidisciplinary team and patient has been conducted. The patient?s concerns have been addressed and he/she agrees to proceed with today?s plan of care. Assessment AND Plan Gastrointestinal * Abdominal pain- (present on admission) Continue multimodal pain management. Avoid ketorolac (and other NSAIDS) in the setting of potential Crohn's disease, patient and updated of this. Appendicitis- (present on admission) S/p appendectomy at OSH, concern for perforation due to the extensive inflammation. Repeat CT today without evidence of perforations or fluid collections. Continue NGT to suction until return of bowel function - follow BRYCE output - OOB, ambulate - IS Q1 hour while awake - pain control as listed Medication and Non-Pharmacologic VTE Prophylaxis/Anticoagulants Anticoagulant AND Antiplatelet Medications (From admission, onward) Start Dose Route Frequency Last Action Ordered Stop 03/23/24 1800 enoxaparin 40 mg injection (LOVENOX) (Surgical Risk Categories) 40 mg SUBCUTANEOUS DAILY Given, 03/25 0903 03/23/24 1743 -- 03/23/24 1745 pneumatic compression stockings (pr,oh) VTE Prophylaxis: VTE prophylaxis appropriate Plan of care discussed with: Provider, RN, Patient and Care Management SIGNATURE: Stacey Valero APRN.CNP PATIENT NAME: Jair Warren DATE: March 25, 2024 TIME: 10:39 [facility]12-19-2024 NoteHNO ID: [id number] Author: LILLY INIGUEZ MD Service: Colorectal Author Type: Resident Type: Progress Notes Filed: 03/24/2024 15:59 Note Text: COLORECTAL SURGERY PROGRESS NOTE ASSESSMENT AND PLAN: This is a 38 yo male with PMH of chronic abdominal pain for past 20 years presented to OSH ED where CT scan showed perforated appendicitis. He was taken to OR on 03/21. Per pt and family a large phlegmonous mass attached to the small bowel and colon. This was resected. Post op pt was not improving and there was concern for sigmoid colon perforation. At this time pt was transferred to [facility]. On the exam pt is HDS. Abdomen is soft with mild diffuse tenderness. Repeat CTAP was ordered 03/24. Neuro/Pain- Pain control: stephon APAP, dilaudid CD TECHNICIAN Cardiac- Vitals: HDS Respiratory- Encourage incentive spirometry, wean supplemental oxygen as able GI- NPO. Zofran PRN. Repeat CTAP this AM without organized fluid collection or perforation FEN- IV fluids D5NS at 80. Electrolyte repletion prn. Renal- Monitor UOP Heme- H/H stable, no indication for transfusion at this time ID- Zosyn, monitor WBC Endo- No hx of glycemic issues Wound-Monitor drains MSK- PT/OT consult not indicated Prophylaxis- SCD and SQH, OOB and IS Dispo - RNF INTERVAL EVENTS / PERTINENT REVIEW OF SYSTEMS: No acute events overnight. Endorses moderate pain. Denies nausea, emesis. OBJECTIVE: PHYSICAL EXAM: 03/24/24 1027 03/24/24 1028 03/24/24 1529 03/24/24 1530 BP: 136/97 139/94 146/106 128/86 Pulse: 73 66 74 72 Resp: 19 20 Temp: 36.7 ?C (98.1 ?F) 37.2 ?C (99 ?F) TempSrc: Oral Oral SpO2: 97% 97% 98% Weight: General: AANDO x 3, no acute distress Heart: RRR Lungs: non-labored breathing on RA Abd: soft, appropriately tender, non-distended, non-peritonitic Incisions: RLQ and LLQ drains SS Ext: no edema DATA: Laboratory: CBC, Coags, BMP, Mg, Phos Recent Labs 03/24/24 0714 WBC 8.01 HB 11.0* HCT 34.4* PLT 186 NA 135* K 3.9 CHLOR 104 CO2 19* BUN 8* CREAT 0.77 GLUC 98 CA 8.5 MG 2.1 P 2.2* Liver Function, Amylase, AND Lipase Recent Labs 03/24/24 0714 TPROT 5.7* ALB 2.8* ALT 17 AST 19 ALKPHOS 61 TBILI 1.3 LDA: Lines, Drains, and Airways Line Duration Peripheral 03/24/24 0955 Left Antecubital 20 Gauge <1 day Drain Duration Drain/Tube 03/23/24 1730 Hemovac Left Lower Quadrant Flank <1 day Drain/Tube 03/23/24 1730 Hemovac Right Lower Quadrant Flank <1 day GI/ Feeding 03/23/24 1707 Gastric Right Naris <1 day SURGERY/PROCEDURE: * Surgery not found *[facility]12-19-2024 NoteHNO ID: [id number] Author: JAYLA COLLAZO RT(R) Service: Radiology Author Type: Muskrat Trapper Type: Progress Notes Filed: 03/24/2024 11:36 Note Text: Radiology Service Progress Note DATE OF SERVICE: March 24, 2024 TIME: 11:35 AM PATIENT IDENTITY VERIFICATION COMPLETED USING TWO (2) STANDARD IDENTIFIERS: Name and Date of confirmed by patient verbally and Name and Date of confirmed by identification band. FALL SCREENING: Has the patient had 2 falls in the last year or 1 fall with injury or currently using an Ambulatory Assistive Device (Walker, Cane, Wheelchair, Crutches, etc.)? Inpatient: Screened on floor PATIENT GENDER DATA: Male PATIENT RELEVANT IMPLANT DATA REVIEWED: Yes PATIENT PRESENTS WITH AN IMPLANTABLE OR ATTACHED CONVEYOR BELT OPERATOR: No ALLERGIES: Reviewed and unchanged CONTRAST ALLERGY: NO. EXAM: CT -CONTRAST INDUCED NEPHROPATHY RISK FACTORS: Not applicable CREATININE: Creatinine Date Value Ref Range Status 03/24/2024 0.77 0.73 - 1.22 mg/dL Final Estimated Glomerular Filtration Rate Date Value Ref Range Status 03/24/2024 118 >=60 mL/min/1.73m? Final Comment: Estimated Glomerular Filtration Rate (eGFR) is calculated using the 2020 CKD-EPI creatinine equation. This equation utilizes serum creatinine, sex, and age as parameters. The creatinine assay has traceable calibration to isotope dilution-mass spectrometry. Refer to KDIGO guidelines for clinical interpretation. In patients with unstable renal function, e.g. those with acute kidney injury, the eGFR may not accurately reflect actual GFR. P.O.C.T. RESULTS: POC done: Yes, See Lab Tab March 24, 2024 TREATMENT: N/A and No Hydration needed. PERIPHERAL IV DATA: Inpatient - refer to LDA documentation RADIOLOGY DEPARTMENT: CT; Exam(s) Completed: Abdomen/Pelvis SIGNATURE: RT Yoshi(R) PATIENT NAME: Jair Warren DATE: March 24, 2024 TIME: 11:35 [facility]12-19-2024 NoteHNO ID: [id number] Author: GERMAN HUFFMAN RN Service: Care Management Author Type: Registered Nurse Type: Care Mgt Initial Assessment Filed: 03/24/2024 09:14 Note Text: CARE MANAGEMENT: ASSESSMENT AND DISCHARGE PLAN SERVICE DATE: March 24, 2024 SERVICE TIME: 9:12 AM PCP: No primary care provider on file. Primary Contact: Extended Emergency Contact Information Primary Emergency Contact: Cass Warren Mobile Relation: Spouse Admission Status: Inpatient Insurance Provider: HIREN SMITH PPO Discharge Planning requested by: Per Department Practice Potential Transition Plans No Services Indicated;To Be Determined Advance Directives Current Advance Directive: None Current Living Arrangements and Support Type of Residence: Private Residence (House) Support: Spouse/significant other How do you manage to accomplish the following: Independent: Ambulation;Bathe/Shower;Dress;Meals/Meal Prep;Going to the bathroom;Medication Management;Transportation to appointments/community Current Services/Equipment Current Post-Acute Service(s): None Discharge Planning Patient Goal(s): General wellness [place] Choice Explained: [place] of Choice Given: No Reason Not Given: No placements necessary Are you interested in bedside delivery of your medications? Yes Caregiver Assessment: Caregiver is ready, willing and able to meet the patient's needs as recommended by the inter-professional team: No Caregiver needed Transport at Discharge: Transportation Arrangements: Car Destination: Home Needs Prior to Discharge: Needs Prior to Discharge: To Be Determined Pt admitted from outside hospital with concerns for sigmoid perforation. 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 PT/OT consults not ordered currently. Pt has a 6-click score of 22. Pt is 95% on Room Air. Pt is on IV Zosyn. No skilled needs noted at this time. Pt screened out by CM, re-screen on 03/26, unless pt to dc prior. CM will continue to follow. This patient has been screened for Care Management Transitional Planning Services. At this time, it does not appear this patient will require transition planning services. Should this change, and the patient require transition planning services during this admission, please contact Case Management. SIGNATURE: German Huffman RN PATIENT NAME: Jair Warren DATE: March 24, 2024 TIME: 9:12 [facility]12-19-2024 NoteHNO ID: [id number] Author: STACEY VALERO APRN.SHIP'S ENGINEER Service: Colorectal Author Type: Nurse Practitioner Type: Progress Notes Filed: 03/24/2024 16:02 Note Text: Attestation signed by Ozzie Pierre MD, PhD at 03/24/2024 4:23 PM Attending Note: Rebollar findings confirmed. Patient examined. Discussed with the nurse practitioner, resident, and the patient. Plan as outlined. Ozzie Pierre MD, PhD SERVICE DATE: 03/24/2024 SERVICE TIME: 7:58 AM COLORECTAL SURGERY PROGRESS NOTE Mr. Warren is a 38y male admitted from OSH with concern for sigmoid colon perforation status post appendectomy. Subjective INTERVAL HPI and PERTINENT ROS: VSS, afebrile; no acute events overnight; NGT remains in place with 60ml output overnight; BRYCE x 2 both with minimal output; johnson with adequate UOP documented; no BM MEDICATIONS: Current Facility-Administered Medications Medication Dose Route Frequency enoxaparin 40 mg injection (LOVENOX) 40 mg SUBCUTANEOUS DAILY NaCl 0.9% iv flush bag 20 mL INTRAVENOUS PRN dextrose 5% in NaCl 0.9% iv infusion 80 mL/hr INTRAVENOUS CONTINUOUS piperacillin-tazobactam iv piggyback 3.375 g in dextrose (iso-osmotic) 50 mL (ZOSYN) 3.375 g INTRAVENOUS q 6 H acetaminophen 650 mg tab(s) (TYLENOL) 650 mg ORAL q 6 H Or acetaminophen 650 mg CUP (TYLENOL) 650 mg ORAL q 6 H ondansetron orally disintegrating 4 mg tab(s) (ZOFRAN ODT) 4 mg ORAL q 6 H PRN Or ondansetron (PF) 4 mg injection (ZOFRAN) 4 mg INTRAVENOUS q 6 H PRN iv contrast (radiology procedure) INTRAVENOUS DIRECTED PRN naloxone 0.1 mg injection (NARCAN) 0.1 mg INTRAVENOUS q 2 MIN PRN NaCl 0.9% iv infusion 5-30 mL/hr INTRAVENOUS CONTINUOUS HYDROmorphone CD TECHNICIAN 0.5 mg/mL in NaCl 0.9% 100 mL INTRAVENOUS CONTINUOUS keTORolac 15 mg injection (Toradol) 15 mg INTRAVENOUS ONCE lidocaine urojet 2 % 11 mL topical gel (GLYDO) 11 mL MUCOUS MEMBRANE ONCE phenol 1 [place] (CHLORASEPTIC) 1 [place] MUCOUS MEMBRANE (TOPICAL MOUTH AND THROAT) q 2 H PRN Or benzocaine-menthol 1 Lozenge (CHLORASEPTIC) 1 Lozenge MUCOUS MEMBRANE (TOPICAL MOUTH AND THROAT) q 2 H PRN pantoprazole 40 mg oral liquid (PROTONIX) 40 mg ORAL DAILY (6 AM) Objective PHYSICAL EXAM: BP 139/91 Pulse 73 Temp 36.8 ?C (98.2 ?F) (Oral) Resp 19 SpO2 95% General/Neuro: alert, oriented intact Abdomen: soft, tender to palpation, incisions well approximated; BRYCE x 2 with serosanguinous; NGT with bilious output No skin breakdown noted. Date 03/24/24 07 - 03/25/24 0659 Shift 3968-0768 6712-7120 1061-4512 24 Hour Total INTAKE PO 0 0 Shift Total 0 0 OUTPUT Shift Total Weight (kg) Lines, Drains, and Airways Drain Duration Drain/Tube 03/23/24 1730 Hemovac Left Lower Quadrant Flank <1 day Drain/Tube 03/23/24 1730 Hemovac Right Lower Quadrant Flank <1 day GI/ Feeding 03/23/24 1707 Gastric Right Naris <1 day Indwelling Urinary Catheter 03/23/24 1705 Johnson <1 day Reviewed Johnson and needs to be continued: REASONS: Critical need for I@O (I.e. every 1-2 hours) or accurate I@O with inability to measure urine using other methods Reviewed drains and needs to be continued: gastric decompression DATA: Diagnostic tests reviewed for today's visit: Most recent labs and imaging results. LABS: *A review of daily goals, interventions, and plan of care with the multidisciplinary team and patient has been conducted. The patient?s concerns have been addressed and he/she agrees to proceed with today?s plan of care. Assessment AND Plan Gastrointestinal * Abdominal pain- (present on admission) Continue multimodal pain management. Avoid ketorolac (and other NSAIDS) in the setting of potential Crohn's disease, patient and updated of this. Appendicitis- (present on admission) S/p appendectomy at OSH, concern for perforation due to the extensive inflammation. Repeat CT today without evidence of perforations or fluid collections. Continue NGT to suction until return of bowel function - follow BRYCE output - OOB, ambulate - IS Q1 hour while awake - pain control as listed Medication and Non-Pharmacologic VTE Prophylaxis/Anticoagulants Anticoagulant AND Antiplatelet Medications (From admission, onward) Start Dose Route Frequency Last Action Ordered Stop 03/23/24 1800 enoxaparin 40 mg injection (LOVENOX) (Surgical Risk Categories) 40 mg SUBCUTANEOUS DAILY Given, 03/24 0930 03/23/24 1743 -- 03/23/24 1745 pneumatic compression stockings (pr,oh) VTE Prophylaxis: VTE prophylaxis appropriate Plan of care discussed with: Care Management SIGNATURE: Stacey Valero APRN.CNP PATIENT NAME: Jair Warren DATE: March 24, 2024 TIME: 7:58 [facility]12-16-2024 NoteDischarge Instructions Discharge Summary [address] [address] [phone] 03/21/2024 Patient: JAIR WARREN Sex: Male : 1985 Age: 38y Thank you for visiting [facility]. You have been evaluated today by Rachid Reyez M.D. for the following condition(s): Patient Signature Facility Cylinder Valve Repairer Date/Time General Instructions with ExitWriter [address] [address] [phone] 03/21/2024 Patient: JAIR WARREN Sex: Male : 1985 Age: 38y Thank you for visiting [facility]. You have been evaluated today by Rachid Reyez M.D. for the following condition(s): 1 of 3 Discharge Instructions Discharge Summary [address] [place] [address] [phone] 03/21/2024 Patient: JAIR WARREN Sex: Male : 1985 Age: 38y Thank you for visiting [facility]. You have been evaluated today by Darryl Rich D.O. for the following condition(s): Principal Diagnosis Acute appendicitis with abscess. 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 [address] [phone] 03/21/2024 Patient: JAIR WARREN Sex: Male : 1985 Age: 38y Thank you for visiting [facility]. You have been evaluated today by Darryl Rich D.O. for the following condition(s): 2 of 3 Discharge Instructions Principal Diagnosis Acute appendicitis with abscess. 3 [address]Cons[address] Author Herbert White [facility] Note Date/Time July 14, 2024 7:3 7am [facility] Medical Records Department [address] [place] [address] Anesthesia Postop Eval I 07/14/24 0736 MR#: [id number] Acct: [id number] Name: JAIR WARREN Rep #:[id number] : 1985 39 From: Herbert White PCP: Dr. Aman Diop MD Status:REG S DC Y Race: C Location: [place] [address] Anesthesia: Postop Eval I Current Vital Signs Temperature: 97.3 F Pulse Rate: 86 Blood Pressure: 114/80 Respiratory Rate: 18 Pulse Ox: 96 Oxygen Delivery Method: Room Air Assessment Airway patent: Yes Spontaneous unlabored respirations: Yes Mental status: Asleep nausea: No Vomiting: No Anesthesia Complication: No Fluid Hydration Crystalloid volume administer (ml): 60 Total IV fluid infused: 60 Progress Note Anesthesia document: Postop Eval 1 completed: Yes 07/14/24 0737 <Electronically signed by Herbert White > Date _ Herbert Diaz Signature: Date CC: ~ Signed [facility] Work Phone: History and physical note Author Price Friend [facility] Note Date/Time July 14, 2024 7:0 3am [facility] Medical Records Department [address] [place] [address] History & Physical Exam 07/14/24 0701 MR#: [id number] Acct: [id number] Name: JAIR WARREN Rep #:[id number] : 1985 39 From: Price Villanueva DO PCP: Dr. Aman Diop MD Status:REG S PR Location: [place] [address] HPI - General General Date of Admission: 07/14/24 Date of Service: 07/14/24 Chief Complaint: Crohns disease with abdominal pain HPI Narrative JAIR WARREN, is a 39 M who presents for the evaluation of abdominal pain. He presented to the ED on 03/21/2024 with complaints of abdominal pain which he hadreported was present for >20 years and worse over the past three weeks accompanied by diarrhea. In ED he had a leukocytosis with a left shift, HGB 13.9and CT was revealing for appendicitis, thickening of the adjacent SB and 3.2cm pelvic fluid collection. He underwent exploratory laparoscopy, lysis of dense adhesions, oversewing sigmoid enterotomy, ileocecal resection and side to side anastomosis. Pathology is revealing for ileocecal junction with active chronic inflammation with ulceration, full-thickness inflammation, fibrous serosal adhesions and fistula consistent with crohn's. He reports PMH of IBS diagnosed at 18y/o, rectal abscess with I&D in 2013. He has had crampy abdominal pain with diarrhea for many years which he always suspected was secondary to IBS and food intolerances. He denies any family history of IBD. He presently complains of RLQ pain with PO intake, he is continuing to experience diarrhea and rectal "jelly" discharge. He denies any rectal pain and reports an initial weight loss of 20lbs post-op but has gained 10lb back. He is tolerating soft foods, but reports diarrhea with any PO intake.Prior to admission and immediately post he was taking IBU or Advil for pain management. He presently denies any rectal bleeding. He has 3-4 loose stools daily, but report no nocturnal stools post-op. Rectal exam is unremarkable, he does have a 2-3cm ovoid firm fullness right ischium. I have scheduled him for a colonoscopy and EGD. I have ordered MRE, MRI pelvis, labs and stool studies in anticipation of starting biologic therapy. I have reviewed with Dr. Villanueva and I will start him on Metronidazole 250mg BID (until biologic is initiated), Budesonide 9mg QD, probiotic and initiate PA for biologic once labs have resulted. A total of 90 minutes was spent on this visit reviewing [facility] and/or [facility] for associated records; previous notes (OP note 03/21, pathology, CT 03/21, CT 03/24, CT 03/27, CBC, CMP,CRP), counseling the patient on (Reviewing pathology findings with patient and , reviewing likely Crohn's diagnosis, reviewing recommended next steps, explained in detail need to solidify the diagnosis of Crohn's which is highly suspected and treat inflammation before considering another alternative for cause of diarrhea such as food allergens which has requested be worked up, reviewing anatomy post-op with side to side anastomosis and lack of IC valve resulting in increased risk of diarrhea, importance of avoiding all NSAIDS, potential treatment approach for IBD), ordering tests (Colon/EGD, MRE, MRI pelvis, CBC, CMP, CRP, Celiac serologies, HBV Core, HBVsAb,HBVsAg, Vitamin B12, Vitamin D, C. Diff, GIPCR, O&P, fecal calprotectin), adjusting meds, importance of compliance with treatment and documenting the findings in the note. CBC: 05/03/2024 WNL CMP: 05/03/2024 K+ 3.2, T. Bili 1.5 CRP: Fecal Calprotectin: 05/03/2024 71 Quantiferon: 05/03/2024 negative HBVsA05/03/2024 negative HBVsAb: 05/03/2024 reactive HBV Core Ab Total: 05/03/2024 negative Colon: scheduled 07/15/2024 - per surgeon stated we must wait another 6-8 weeks post last OV (05/05/2024) due to the severity of inflammation and friability like tissue trying to sew back together" MRE: 06/13/2024 There is a short segment of mild apparent wall thickening along the neoterminal ileum, without convincing evidence of associated active inflammation. This could be related to underdistention, or perhaps fibrosis related to previous inflammation. This would be optimally ended evaluated endoscopically. No bowel dilatation to confirm that this reflects a stricture. No other abnormal areas of abnormal bowel are confidently identified, allowing for limitations. No definite evidence of penetrating disease such as fistulization or abscess. COVID Varicella Hepattis B - positive Ab 05/03/2024 Influenza Pneumonia Shingles - he avoiding dairy, raw vegetables and alcohol - He looks better today compared to April IBD SYMPTOMS: Bowel movements are: this week stools are formed and normal, 3x a day this is an improvement prior to surgery he was having 5-8 stoolsa day and often would not make it through a meal without having diarrhea Blood noted in stools: denies Bowel movement urgency present: occasional Stool incontinence: denies Nocturnal BM's: denies Abdominal pain: RLQ and LLQ Rectal pain: denies QOL: good [facility] Medical History Wears contact lenses Alcohol use Prostate disease Dietary restriction History of diverticulitis History of Crohn's disease Non-smoker Hypertension Recurrent right inguinal hernia Home Medications ?Medication ?Instructions ?Recorded ?Last Taken ?Type Bacillus coagulans 250 million 1 tab PO DAILY 06/20/24 07/13/24 History cell chewable tablet (Digestive Advantage Probiotic Gummy) metronidazole 500 mg tablet 500 mg PO BID fistulizing Crohn's 06/20/24 07/13/24 Rx #60 tabs budesonide 3 mg 9 mg PO QAM Crohn's 07/08/24 07/13/24 History capsule,delayed,extended release multivitamin (Daily Multi-Vitamin 1 tab PO DAILY 07/0807/13/24 History tablet) amlodipine 5 mg tablet 5 mg PO BID 07/14/24 5 04:30 History losartan 50 mg-hydrochlorothiazide 2 tab PO DAILY 07/0507/13/24 History 12.5 mg tablet (Hyzaar) Allergy/AdvReac Type Severity Reaction Status Date / Time lactose (lactose intolerant) Allergy Severe OTHER Verified 07/14/24 06:08 Family History Father Arthritis Surgical History History of bowel resection History of appendectomy History of vasectomy (~03/2018) Hernia Social History Smoking Status: Never smoker alcohol intake: current alcohol intake frequency: a few times a month ROS Constitutional Constitutional: Denies fatigue, fever(s), poor appetite, weight gain or weight loss Gastrointestinal Gastrointestinal: Denies belching, bloating, change in bowel habits, change in stool character, chewing difficulty, coffee ground emesis, constipation, cramping, diarrhea, dyspepsia, dysphagia, early satiety, excessive flatus, fecalincontinence, heartburn, hematemesis, hematochezia, hemorrhoids, loose stools, melena, nausea, odynophagia, rectal bleeding, tenesmus, vomiting or weight changes Vital Signs Vital Signs Vital Signs: 07/14/24 06:10 07/14/24 06:12 07/14/24 06:29 Temperature 97.5 F L 97.5 F L Temperature Source Temporal Pulse Rate 71 71 Respiratory Rate 16 16 Respiratory Pattern Normal Blood Pressure 134/92 H 134/92 H Blood Pressure Mean 106 Blood Pressure Source Monitor Blood Pressure Position Semi-Fowlers Blood Pressure Location Left Arm Pulse Ox 98 98 Oxygen Delivery Method Room Air Room Air Weight Weight: 202 lb 3.2 oz Body Mass Index (BMI) 26.6 Physical Exam Const alert, oriented x3, no apparent distress and healthy appearing General Appearance: cooperative GI normal to inspection, nondistended, normoactive bowel sounds, soft to palpation,non-tender and non-distended Percussion: normal to percussion Rectal Exam: deferred Assessment & Plan Assessment/Plan (1) Diarrhea: QUALIFIERS: Diarrhea type: due to malabsorption Qualified Code(s): 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, unspecified; R19.7 - Diarrhea, unspecified (2) Abdominal pain: QUALIFIERS: Abdominal location: right lower quadrant Qualified Code(s): R10.31 - Right lower quadrant pain (3) Crohn disease: QUALIFIERS: Gastrointestinal tract location: small and large intestine Digestive disease complication type: with fistula Qualified Code(s):K50.813 - Crohn's disease of both small and large intestine with fistula PLAN: Assessment and Plan Assessment and Plan (1) Crohn disease: Status: Acute Qualifiers: Digestive disease complication type: with fistula Gastrointestinal tract location: small and large intestine Qualified Code(s): K50.813 - Crohn's disease of both small and large intestine with fistula Comment: 03/21/2024 exploratory laparoscopy, lysis of dense adhesions, oversewing sigmoidenterotomy, ileocecal resection and side to side anastomosis. Pathology is revealing for ileocecal junction with active chronic inflammation with ulceration, full-thickness inflammation, fibrous serosal adhesions and fistula consistent with crohn's. (2) Abdominal pain: Status: Acute Qualifiers: Abdominal location: right lower quadrant Qualified Code(s): R10.31 - Right lower quadrant pain (3) Diarrhea: Status: Acute Qualifiers: Diarrhea type: due to malabsorption Qualified Code(s): 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, unspecified; R19.7 - Diarrhea, unspecified Orders: Orders Miscellaneous Lab Procedure Today K50.813 - Crohn's disease of both small and large intestine with fistula, 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, unspecified, R10.31 - Right lower quadrant pain, R19.7 - Diarrhea, unspecified Medications: New metronidazole 500 mg PO BID 60 tabs 1RF fistulizing Crohn's budesonide DR-ER 6 mg (2 x 3 mg) PO QAM 60 ea 3RF Crohn's Discontinued budesonide DR-ER Take 3 capsules once every morning Discontinued Reason: Order Changed 9 mg (3 x 3 mg) PO QDAY 90 ea 1RF Plan 39y/o male presents for follow-up. He remains on Budesonide 9mg daily, but complains of insomnia and hypertension. He reports an improvement in abdominal pain and diarrhea. He continues to experience intermittent mild RLQ and LLQ painwith occasional diarrhea. He denies any bleeding and reports an improvement in appetite and weight. His pathology is consistent with Crohn's disease, and his recent surgery suggests significant prior inflammation and complications (adhesions, fistula and reactive enteritis). His fecal calprotectin of 71 is reassuring, suggesting minimal active inflammation, and his MRE does not show clear active disease, strictures or fistulization. While the pathology from surgery confirms the diagnosis, I recommend a colonoscopy to assess the full extent and severity of his crohn's disease. Since his fecal calprotectin was relatively low, there may not be significant inflammation, but given his historyof complications (adhesions, fistula), a full evaluation is warranted before finalizing a long-term treatment plan. Due to c/o insomnia, I have decreased his Budesonide to 6mg daily and he will contact me with any increase in pain, diarrhea or obstructive symptoms. I have asked him to follow-up with PCP, while budesonide may contribute to some mild hypertension, it is not the cause of SBP in the 170's and DBP in the 120's. does report he had issues with hypertension prior to surgery March 2024. Post colonoscopy, I recommend transitioning to maintenance therapy and with his history of fistulizing disease I recommend triple therapy with a combination of Remicade and Imuran with antibiotics for 2-3 months. Patient Instructions: Decrease Budesonide to 6mg daily Continue Metronidazole 500mg BID Follow-up with PCP for hypertension Adequate dietary intake is important, recommend he remain on a low residue diet at this time Avoid all non-steroidal medications Repeat fecal calprotectin, inflammatory markers and consider repeat imaging if symptoms suggest disease progression Link to dietary recommendations [email or web address] Complete labs TPMT activity level: Test# 128826 (TPMT helps clear the medication from your system. If you have lower amounts of TPMT, you may be at higher risk for medication toxicity.) Thiopuring Metabolites: Thiopurine Metabolites Test# 586677 TPMT Genotyping Test# 971006 Vitamin D Vitamin B12 CRP Plan Details Follow Up: 6 Weeks 07/14/24 0703 <Electronically signed by Price Friend DO> Cosigner Signature (if applicable): CC: Dr. Aman Diop MD; Price Friend, DO~ Signed [facility] Work Phone: Progress note Author Josefina Sears [facility] Note Date/Time December 26, 2024 11:26am [facility] [address] [place] [address] OFFICE VISIT Date of Service: 12/26/24 MR#: [id number] Acct: [id number] Name: JAIR WARREN Rep #: [id number] : 1985 Provider: RENETTA Seasr Age/Sex: 39/M Location: [facility] Status: Signed Intake Vital Signs 07/14/24 06:12 12/26/24 10:48 Height 6 ft 1 in 6 ft 1 in Weight: 209 lb 8 oz BMI 27.6 BP 120/81 H Respiration 16 Pulse 66 Temp 98.4 F Temp Source Temporal Pulse Oximetry (%) 98 Oxygen Delivery Method room air Intake Visit Reasons: 4 M FU Crohn's Disease Chief Complaint: f/u Crohn's Circulation Manager Required: No Accompanied by: Is patient in pain?: No Allergies lactose (lactose intolerant) Allergy (Severe, Verified 12/26/24 10:49) OTHER Medications ?Medication ?Instructions ?Recorded ?Confirmed ?Type multivitamin (Daily Multi-Vitamin 1 tab PO DAILY 07/0812/26/24 History tablet) amlodipine 5 mg tablet 5 mg PO BID 07/14/24 5 History losartan 50 mg-hydrochlorothiazide 2 tab PO DAILY 07/0512/26/24 History 12.5 mg tablet (Hyzaar) Bacillus coagulans 250 million 1 tab PO DAILY 08/17/24 12/26/24 History cell chewable tablet (Digestive Advantage Probiotic Gummy) omeprazole 40 mg capsule,delayed 40 mg PO QDAY #90 cap s 08/17/24 12/26/24 Rx release peg 3350-sod sulf,[id number]-[id number] See Rx Instructions PO .COMPLEX #2 11/16/24 12/26/24 Rx 178.7-7.3-0.5-1.12-0.9 gram oral mL soln (Suflave) budesonide 3 mg 6 mg PO QAM Crohn's 12/26/24 12/26/24 History capsule,delayed,extended release PFS Medical History Wears contact lenses Alcohol use Prostate disease Dietary restriction History of diverticulitis History of Crohn's disease Non-smoker Hypertension Recurrent right inguinal hernia Surgical History History of bowel resection History of appendectomy History of vasectomy (~03/2018) Hernia Family History Father Arthritis Social History Smoking Status: Never smoker alcohol intake: current alcohol intake frequency: a few times a month HPI HPI Chief Complaint: f/u Crohn's Details: JAIR WARREN, is a 39 M who presents to the office today for follow-up of Crohn's with diarrhea, abdominal pain and bloating. OV 08/18/2024 39-year-old male with newly diagnosed Crohn's disease, confirmed by surgical pathology following admission for acute appendicitis and intra-abdominal abscess. He underwent appendectomy with ileocolic resection and ileocolonic anastomosis, with intraoperative findings of dense adhesions and a sigmoid enterotomy requiring oversewing. Pathology revealing full-thickness chronic active inflammation, ulceration, fibrosis adhesions, and fistula formation at the ileocecal junction, consistent with Crohn's disease. He has a remote history of rectal abscesses approximately 15 years ago. Postoperative course was uncomplicated; he was started on course of budesonide 9 mg daily and metronidazole 250 mg twice daily and has since shown clinical improvement. Colonoscopy revealed mild active chronic ileocolitis at the anastomosis site with otherwise normal mucosa and no evidence of diffuse small bowel involvement. MRE showed mild wall thickening at the neoterminal ileum, likely related to postsurgical changes or fibrosis, with no evidence of active inflammation, stricture, or fistulizing disease. Fecal calprotectin was 71, and follow-up labs revealed a low potassium (3.2) but otherwise stable CBC and normal hepatic panel. TPMT and infectious screening (Quantiferon, hepatitis panel) were unremarkable. 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 Budesonide will be tapered gradually after completion of infliximab loading doses over 8 to 12 weeks, and metronidazole will be discontinued at this time, as there is no current evidence of infection or perianal involvement. Labs including CBC, CMP,and TPMT will be monitored closely during azathioprine titration, with target dosing of 2 to 2.5 mg/kg/day, titrated over several weeks as tolerated. Infliximab will be initiated with standard induction (weeks 0, 2, 6), followed by maintenance dosing every 8 weeks. The patient has been counseled on risks, benefits, and monitoring requirements for combination immunosuppression and agrees with plan. Note: [employer] speech recognition capital project engineer software was used to create portions of this document. Sound-alike and misspelled words, as well as other capital project engineer errors may be contained in the documentation. Patient Instructions: 1. Discontinue Metronidazole 2. Start Imuran 50mg once daily x2 weeks, if tolerated and labs are stable (CBC,CMP), will increase to 100 mg daily. With continued follow-up labs over the next 1 to 2 weeks, we will then consider increasing to 150 mg daily as tolerated. Prescription sent to your local pharmacy 3. Start Remicade 5mg/kg with [facility] - notify me once you are scheduled for your first loading dose and then update me 1-2 days after your first loading dose with side effects. Monitor for nausea, vomiting, abdominal pain or cramping, loss of appetite, diarrhea, or signs of pancreatitis (rare) with severe upper abdominal pain, nausea, and vomiting. Usually occurs within the first few weeks. 4. Budesonide: start to taper after completion of loading doses, decrease to 6mg(2 capsules) daily after 3rd loading dose of Remicade, continue 6mg daily x4 weeks and then decreased to 3mg daily x4 weeks and then discontinue. 5. Fecal Calprotectin/CRP 3 months after initiation of Remicade/Imuran - order has been written 6. Colonoscopy 6 months after initiation of Remicade/Imuran 7. Recommend influenza vaccine yearly 8. Discussed risk of basal cell cancers developing in patients on TNF therapy. Irecommended routine dermatology screenings, at least yearly. CBC: 11/18/2024 HGB 12.3 CMP: 11/18/2024 K+ 2.9, normal transaminases and renal function CRP: 11/18/2024 WNL (06/20/2024 elevated 4.6) B12: 06/20/2024 358 Vitamin 34.6 Celiac Serologies: 05/03/2024 negative QUANTIFERON: 05/03/2024 negative HBVsAb: 05/03/2024 reactive HBV Core Total Ab: 05/03/2024 negative SB imaging: MRE 06/13/2024 There is a short segment of mild apparent wall thickening along the neoterminal ileum, without convincing evidence of associated active inflammation. This could be related to underdistention, or perhaps fibrosis related to previous inflammation. This would be optimally ended evaluated endoscopically. No bowel dilatation to confirm that this reflects a stricture. No other abnormal areas of abnormal bowel are confidently identified, allowing for limitations. No definite evidence of penetrating disease such as fistulization or abscess. COLON: 07/14/2024 Mild active chronic ileocolitis, negative for dysplasia Fecal Calprotectin: 11/18/2024 elevated 116 April 2024 elevated 71 BIOLOGICS: Remicade (START DATE 08/30/2024) - last infusion 12/06 next due 01/31 Imuran - 50mg daily start August 2024 - Discontinue 11/02/2024 due to elevated transaminases and lipase, transaminases normalized with discontinuing STEROIDS: Budesonide start 05/05/2024 at 9mg daily, this was decreased to 3mg on 11/13/2024, - mid November increased back to 6mg daily and has been doing better VACCINES COVID: Varicella Vaccine: Shingles Vaccine: Hepatitis B Vaccine: Pneumonia Vaccine: Influenza Vaccine: IBD SYMPTOMS: Bowel movements are: 2-3x a day, they were formed before going on a cruise and now they are loose, but states he did his best in terms of stools he reports he has less diarrhea on Budesonide 6mg daily Blood noted in stools: denies Bowel movement urgency present: yes, intermittent Stool incontinence: denies, some before increasing back to 6mg daily Nocturnal BM's: denies Abdominal pain: yes, intermittent RLQ pain, onset was sudden with gradual increase in intensity, last 10 minutes for so and then resolves Rectal pain: denies any rectal pain - next colonoscopy scheduled for 02/20 - he is avoiding spicy foods, fruit juices - he is avoiding raw vegetables - ice cream causes pain and diarrhea QOL: better with Remicade, not missing work, symptoms are not slowing him down ROS: Fever: denies Night Sweats: denies Visual changes: denies Mouth sores: denies Joint pain: denies Skin rashes/Lesions: denies Weight changes: denies Smoking status: denies NSAID use: denies Discussed importance of influenza vaccine yearly Discussed risk of basal cell cancers developing in patients on TNF therapy. Ihave recommended routine dermatology screenings, at least yearly. RECALL COLONOSCOPY 6 months after initiating therapy with Remicade (colonoscopyscheduled for 02/20) ROS Const Constitutional: No fatigue, fever(s) or weight change ENT ENT: No difficulty swallowing Gastro GI: Positive for abdominal pain, bloating, change in bowel habits and diarrhea; No belching, change in stool character, coffee ground emesis, constipation, cramping, heartburn, difficulty swallowing, feeling full early, excessive flatus, incontinent of stools, Vomiting blood/hematemesis, Blood in stool, loosestools, Black,tarry stools, nausea/dyspepsia, pain with swallowing, vomiting or other Musc Musculoskeletal: No joint pain Skin Skin: No yellowing of the eye or itchy eyes Psych Psychiatric: No anxiety and No depression Endo Endocrine: No fatigue or weight change Aller/Imm Allergy/Immunologic: No itchy eyes Tyrone/Lymp Hematologic/Lymphatic: No easy bleeding or easy bruising Exam Const General: cooperative, healthy appearing, no acute distress and well developed Nutritional Appearance: average body habitus and well nourished Orientation: alert and oriented x3 HENMT Head: normocephalic Ears: hearing grossly normal bilaterally Mouth: moist mucous membranes Teeth and gingiva: dentition normal Eyes Conjunctivae: conjunctivae normal Sclera: sclerae normal Neck Neck: normal visual inspection, full ROM and trachea midline Resp Effort & Inspection: normal respiratory effort, able to speak in complete sentences and symmetric chest movement Neuro General: patient alert and patient oriented x3 Cranial Nerves: other (CN's grossly intact, non-focal exam) Cognition: normal cognition Speech: speech normal Gait: normal gait Psych Appearance: grossly normal and well kempt Affect: normal affect Attitude: cooperative Thought Process: normal Assessment and Plan Assessment and Plan (1) Crohn disease: Status: Acute Qualifiers: Gastrointestinal tract location: small and large intestine Digestive disease complication type: with fistula Qualified Code(s): K50.813 - Crohn's disease of both small and large intestine with fistula Comment: 03/21/2024 exploratory laparoscopy, lysis of dense adhesions, oversewing sigmoidenterotomy, ileocecal resection and side to side anastomosis. Pathology is revealing for ileocecal junction with active chronic inflammation with ulceration, full-thickness inflammation, fibrous serosal adhesions and fistula consistent with crohn's. 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 Addressing dietary triggers while ensuring nutritional balance is a priority. Monitoring and documenting symptoms in relation to food intake will assist in a tailored dietary plan. 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, unspecified, R19.7 - Diarrhea, unspecified, R74.8 - Abnormal levels of other serum enzymes, Z51.81 - Encounter for therapeutic drug level monitoring Comprehensive Metabolic Profil Today D84.9 - Immunodeficiency, unspecified, K50.813 - Crohn's disease of both small and large intestine with fistula, 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, unspecified, R19.7 - Diarrhea, unspecified, R74.8 - Abnormal levels of other serum enzymes, Z51.81 - Encounter for therapeutic drug level monitoring CRP Today D84.9 - Immunodeficiency, unspecified, K50.813 - Crohn's disease of both small and large intestine with fistula, 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 01/30/25 Medications: Changed From budesonide DR-ER 9 mg (3 x 3 mg) PO QAM 100 ea 1RF Crohn's To budesonide DR-ER 6 mg PO QAM Crohn's Plan 39-year-old male presents for follow-up of Crohn's disease, confirmed by surgical pathology following admission for acute appendicitis and intra-abdominal abscess. Colonoscopy was performed July 2024 and revealed mild active colonic ileocolitis at the anastomosis. MR E showed mild wall thickeningat the neoterminal ileum, likely related to postsurgical changes or fibrosis, with no evidence of active inflammation, stricture, or fistulizing disease. He started on Imuran and Remicade August 2024, Imuran was subsequently discontinued secondary to mild increase in transaminases and lipase. Although, reportedtoday the labs which revealed elevation in transaminases were drawn after patient had consumed a couple beers the evening prior. Fecal calprotectin completed 11/18/2024 was borderline at 116, this was mildly increased from 71 this past April. Overall he notes an improvement in abdominal pain and diarrhea with initiation of biologic therapy. He was started on budesonide at 9 mg dailythis past April and taper began after completion of loading doses of Remicade. He decreased to 3 mg daily on November 13, 2024 and had reported an increase in abdominal pain and diarrhea with decreased dosing. His budesonide dose was increased back to 6 mg daily mid November. I have ordered labs to be completed today and he will decrease budesonide to 3 mg daily starting tomorrow (12/27/2024) for 3 weeks and then will decrease to 3 mg every other day for 1 week and discontinue. He will proceed with colonoscopy as planned on 02/20/2025. His next Remicade dose is due 01/31/2025 and I have ordered infliximab level and antibodies to be drawn just prior to his next infusion. Rdahaanthony keep me apprised of any changes in his symptoms. Patient Instructions: Complete labs today Infliximab level with antibodies to be drawn just prior to next infusion on 01/31/2025 Tomorrow (12/27/2024) decrease budesonide to 3 mg daily for 3 weeks and then decrease to 3 mg every other day for 1 week and discontinue Proceed with colonoscopy as scheduled on 02/20/2025-Sutab Follow-up in office in 4 months Keep a record of abdominal pain episodes and associated symptoms Plan Details Follow Up: 4 Months Coding Level of Care Code Off vis,est,level 4 Diagnoses Crohn's disease of both small and large intestine with fistula K50.813 Gastrointestinal tract location: small and large intestine Digestive disease complication type: with fistula Diarrhea due to malabsorption K90.9; R19.7 Diarrhea type: due to malabsorption Therapeutic drug monitoring Z51.81 Immunocompromised D84.9 Elevated lipase R74.8 Clinical Quality Measures Smoking Screening Smoking Status: Never smoker 12/26/24 [id number] <Electronically signed by Josefina JACKSON> Date _ Josefina JACKSON Cosigner Signature: Date (if applicable) CC: ~ [employer] Patient [facility] Work Phone: Reason for referral (narrative)No reason for referral information availableWLakeHealth [facility] Work Phone: Summary Purpose Family History No Family History Records Found Relationship Condition Age at Onset Recorded Date/T julius father Arthritis Unknown Advance Directives No Advanced Directives Records Found Advance Directive Response Recorded Date/ Time Living Will No July 08, 2024 12:09pm Do you have a Healthcare Power of Sap Pp Consultant? No July 08, 2024 12:09pm Chief Complaint and Reason for Visit Chief Complaint Admit Date Crohn's May 03, 2024 2 :48pm EORDER May 03, 2024 4 :37pm CROHNS,,RECTAL/ ISCHIAL ABCESS June 10:54am CROHNS June 13, 2024 10: 01am Reason for Visit Admit Date Abdominal pain May 03, 2024 2 :48pm Crohn disease May 03, 2024 2 :48pm Diarrhea May 03, 2024 2 :48pm Chief Complaint Admit Date Crohn's May 03, 2024 2 :48pm EORDER May 03, 2024 4 :37pm CROHNS,,RECTAL/ ISCHIAL ABCESS June 10:54am CROHNS June 13, 2024 10: 01am Test Result June 20, 2024 3:0 2pm INT LAB ORDERS June 20, 2024 3:5 7pm Reason for Visit Admit Date Abdominal pain May 03, 2024 2 :48pm Crohn disease May 03, 2024 2 :48pm Diarrhea May 03, 2024 2 :48pm Abdominal pain June 20, 2024 3:0 2pm Crohn disease June 20, 2024 3:0 2pm Diarrhea June 20, 2024 3:0 2pm Reason for Visit Admit Date Abdominal pain May 03, 2024 2 :48pm Crohn disease May 03, 2024 2 :48pm Diarrhea May 03, 2024 2 :48pm Abdominal pain June 20, 2024 3:0 2pm Crohn disease June 20, 2024 3:0 2pm Diarrhea June 20, 2024 3:0 2pm Abdominal pain July 14, 2024 5:4 2am Crohn disease July 14, 2024 5:4 2am Diarrhea July 14, 2024 5:4 2am Chief Complaint Admit Date Crohn's May 03, 2024 2 :48pm EORDER May 03, 2024 4 :37pm CROHNS,,RECTAL/ ISCHIAL ABCESS June 10:54am CROHNS June 13, 2024 10: 01am Test Result June 20, 2024 3:0 2pm INT LAB ORDERS June 20, 2024 3:5 7pm FU August 17, 2024 10:33 am Chief Complaint Admit Date 4 M FU Crohn's Disease December 26, 025 10:32am INT LAB ORDER December 26, 2024 11:28am Reason for Visit Admit Date Crohn disease December 26, 2024 10:32am Diarrhea December 26, 2024 10:32am Elevated lipase December 26, 2024 10:32am Immunocompromised December 26, 2024 10:32am Therapeutic drug monitoring December 262024 10:32am Additional Source Comments (unrecognized sect ion and content) No Status Records FoundNo Status Records FoundNo Status Records FoundNo Status Records FoundNo Status Records FoundNo Status Records Found INFORMATION SOURCE (unrecogn ized section and content) DATE CREATED AUTHOR 03/25/2024 [facility] DATE CREATED AUTHOR AUTHOR'S ORGANIZ ATION 05/13/2024 [facility] DATE CREATED AUTHOR AUTHOR'S ORGANIZ ATION 05/26/2024 [facility] DATE CREATED AUTHOR AUTHOR'S ORGANIZ ATION 11/24/2024 [facility] DATE CREATED AUTHOR AUTHOR'S ORGANIZ ATION 02/14/2025 [facility] DATE CREATED AUTHOR AUTHOR'S ORGANIZ ATION 02/17/2025 [facility] Care Teams (unrecognized sec tion and content) Team Status: Active Member Role Status Dates Dr. Aman Diop MD Primary Care Provider Active Team Status: Inactive Member Role Status Dates RENETTA Grewal Attending Provider Active Start: May 03, 2024 End: May 03, 2024 Dr. Jennifer Warren MD Referring Provider Active S tart: May 03, 2024 End: May 03, 2024 Team Status: Inactive Member Role Status Dates No Primary Care Physician Primary Care Provider Active Start: May 03, 2024 End: May 03, 2024 Josefina Orion , SLABBER-C Attending Provider Active Start: May 03, 2024 End: May 03, 2024 Josefina Sears , SLABBER-C Referring Provider Active Start: May 03, 2024 End: May 03, 2024 Team Status: Inactive Member Role Status Dates No Primary Care Physician Primary Care Provider Active Start: June 07, 2024 End: June 07, 2024 Josefina Sears , SLABBER-C Attending Provider Active Start: June 07, 2024 End: June 07, 2024 Josefina Sears , SLABBER-C Referring Provider Active Start: June 07, 2024 End: June 07, 2024 Team Status: Active Member Role Status Dates Josefina Sears , SLABBER-C Attending Provider Active Start: June 13, 2024 Josefina Sears , SLABBER-C Referring Provider Active Start: June 13, 2024 Dr. Aman Diop MD Primary Care Provider Active Start: June 13, 2024 Team Status: Inactive Member Role Status Dates Josefina Sears , SLABBER-C Attending Provider Active Start: June 13, 2024 End: June 13, 2024 Josefina Sears , SLABBER-C Referring Provider Active Start: June 13, 2024 End: June 13, 2024 Dr. Aman Diop MD Primary Care Provider Active Start: June 13, 2024 End: June 13, 2024 Team Status: Inactive Member Role Status Dates No Primary Care Physician Referring Provider Active Start: June 20, 2024 End: June 20, 2024 Josefina Sears , SLABBER-C Attending Provider Active Start: June 20, 2024 End: June 20, 2024 Dr. Aman Diop MD Primary Care Provider Active Start: June 20, 2024 End: June 20, 2024 Team Status: Active Member Role Status Dates Dr. Aman Diop MD Primary Care Provider Active Start: June 20, 2024 Josefina Sears , SLABBER-C Attending Provider Active Start: June 20, 2024 Josefina Sears SLABBER-C Referring Provider Active Start: June 20, 2024 Team Status: Inactive Member Role Status Dates Dr. Aman Diop MD Primary Care Provider Active Start: June 20, 2024 End: June 20, 2024 Josefina Sears SLABBER-C Attending Provider Active Start: June 20, 2024 End: June 20, 2024 RENETTA Grewal Referring Provider Active Start: June 20, 2024 End: June 20, 2024 Team Status: Inactive Member Role Status Dates Dr. Price Villanueva DO Attending Provider Active Start: July 14, 2024 End: July 14, 2024 Dr. Aman Diop MD Primary Care Provider Active Start: July 14, 2024 End: July 14, 2024 Dr. Aman Diop MD Referring Provider Active Start: July 14, 2024 End: July 14, 2024 Team Status: Active Member Role Status Dates Dr. Price Villanueva DO Attending Provider Active Start: July 14, 2024 Dr. Price Villanueva DO Other Provider Active St art: July 14, 2024 Dr. Aman Diop MD Primary Care Provider Active Start: July 14, 2024 Dr. Aman Diop MD Referring Provider Active Start: July 14, 2024 Team Status: Inactive Member Role Status Dates Dr. Aman iDop MD Primary Care Provider Active Start: August 17, 2024 End: August 17, 2024 Dr. Aman Diop MD Referring Provider Active Start: August 17, 2024 End: August 17, 2024 RENETTA Grewal Attending Provider Active Start: August 17, 2024 End: August 17, 2024 Team Status: Active Member Role/Relationship Status Dates Dr. Aman Diop MD Primary care physician Active Team Status: Inactive Member Role/Relationship Status Dates Dr. Aman Diop MD Primary care physician Active Start: December 26, 2024 End: December 26, 2024 Dr. Aman Diop MD Referring Provider Active Start: December 26, 2024 End: December 26, 2024 RENETTA Grewal Attending physician Active Start: December 26, 2024 End: December 26, 2024 Team Status: Inactive Member Role/Relationship Status Dates Dr. Aman Diop MD Primary care physician Active Start: December 26, 2024 End: December 26, 2024 RENETTA Grewal Attending physician Active Start: December 26, 2024 End: December 26, 2024 RENETTA Grewal Referring Provider Active Start: December 26, 2024 End: December 26, 2024 Goals (unrecognized section and content) Goals may be documented in a n alternate sectionGoals may be documented in an alternate sectionGoals may be documented in an alternate sectionGoals may be documented in an alternate sectionGoals may be documented in an alternate section FOR RECORDS PERTAINING TO PATIENTS WHO ARE OR HAVE BEEN ENROLLED IN A CHEMICAL DEPENDENCY/SUBSTANCEABUSE PROGRAM, SOME INFORMATION MAY BE OMITTED. This clinical summary was aggregated from multiple sources. Caution should be exercised in using it in the provision of clinical care. This summary normalizes information from multiple sources, and as a consequence, information in this document may materially change the coding, format and clinical context of patient data. In addition, data may be omitted in some cases. CLINICAL DECISIONS SHOULD BE BASED ON THE PRIMARY CLINICAL RECORDS. [facility]. provides no warranty or guarantee of the accuracy or completeness of information in this document.
[2025-02-20] MEDS: Lactated Ringers 1,000 ML 15 ML IV (06:10)
--- NOTE | 2025-02-20 06:26 | PCM.PRE.AN2 ---
ASA Classification* ASA Classification ASA Classification: 2 Assessment & Plan Anesthesia* Anesthesia Assessment Anesthesia Assessment: Discussed sedation and/or anesthesia options, risks, benefits, and alternatives with patient/parents/legal guardian/POA. Questions invited. The patient/parents/legal guardian/POA seems to understand and agrees to proceed with anesthesia plan. Reviewed the physical assessment, medical history, allergy history and patient home medications list prior to surgery/procedure/anesthetic and documented any changes. Performed airway and anesthesia risk assessments. Anesthesia Type Anesthesia Type: MAC History Source History Obtained from:: Patient and Chart Anesthesia Focused Assessment* Temperature: 97.6 F Pulse Rate: 69 Blood Pressure: 119/88 Respiratory Rate: 16 Pulse Ox: 97 Oxygen Delivery Method: Room Air Airway Assessment Mouth opens: >3 cm Mallampati Score: II Teeth Condition: Missing (Patient has several missing teeth. Rest are tight.) Neck Range of motion (ROM): Limited ROM (Slight Decrease) Labs Anesthesia Preop lab: CBC WBC, (4.4-11.0) 5.6 K/mm3 02/01/25, 15:00 RBC, (4.6-6.2) 5.14 M/mm3 02/01/25, 15:00 Hgb, (13.0-16.5) 13.7 g/dL 02/01/25, 15:00 Hct, (40-54) 41.9 % 02/01/25, 15:00 Plt Count, (150-450) 172 K/mm3 02/01/25, 15:00 CHEMISTRY Potassium, (3.3-5.1) 3.8 mmol/L 02/01/25, 15:00 Sodium, (133-145) 137 mmol/L 02/01/25, 15:00 Magnesium, (1.5-2.2) 2.4 mg/dL H 02/01/25, 15:00 BUN, (4-19) 12 mg/dL 02/01/25, 15:00 Creatinine, (0.70-1.20) 0.92 mg/dL 02/01/25, 15:00 Glucose, (70-99) 84 mg/dL 02/01/25, 15:00 COAG Pre-Assessment Diagnosis/Proposed Procedure Planned Operative Procedure(s): COLONOSCOPY Anesthesia History 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 When Was Last Pacemaker Check QUESTION #4 FULL TEXT: You/Your Family Experience fever (hyperthermia) with Anesthesia Last Oral Intake Last Oral intake: Last Oral Intake NPO since 04:30 02/20/25 05:56 Meds taken in AM with sips of Yes 02/20/25 05:56 water? Meds patient instructed to take am of surgery Any additional information?: Yes NPO since: 03:30 (Patient finishes prep at 3:30 AM. ) Meds taken in AM with sips of water?: Yes PONV PONV - housetrailer servicer: PONV - housetrailer servicer Female No 02/16/25 11:40 HX of Motion Sickness No 02/16/25 11:40 HX of N/V After Surgery No 02/16/25 11:40 Non-Smoker Yes 02/16/25 11:40 Duration of Surgery greater No 02/16/25 11:40 than 60 minutes Number of Risk Factors 1 02/16/25 11:40 PONV Score Low Risk 02/16/25 11:40 Height & Weight Height & Weight: Anesthesia: Height & Weight Height 6 ft 1 in 02/20/25 05:56 Weight: 96 kg 02/20/25 05:56 Body Mass Index (BMI) 27.9 02/20/25 05:56 Respiratory Assessment Respiratory Assessment - housetrailer servicer: Respiratory Tract Infection Hx - housetrailer servicer Hx Respiratory Tract Infection Yes: SORE THROAT 02/1602/16/25 11:40 STOP Sleep Apnea STOP Sleep Apnea - housetrailer servicer: STOP Sleep Apnea - housetrailer servicer Hx Hypertension Yes: CONTROLLED WITH MEDS 02/16/25 11:40 Hx Sleep Apnea No 02/16/25 11:40 CPAP BIPAP Do you snore loudly (louder No 02/16/25 11:40 than talking or can be heard Do you often feel tired/ No 02/16/25 11:40 fatigued/ sleepy during daytime? Has anyone observed you stop No 02/16/25 11:40 breathing during sleep? STOP Results Negative 02/16/25 11:40 QUESTION #5 FULL TEXT : Do you snore loudly (louder than talking or can be heard through closed doors)? 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 Specify any problems Hx of Preganancy in last 3 N/A 02/16/25 11:40 Months Nurse Filling Out Transfusion [id number] 02/16/25 11:40 & Questions: Date: 02/16/25 02/16/25 11:40 Time: 11:43 02/16/25 11:40 Patient unable to answer at this time (ie. confused, unrespo /Reproduction History /Reproductive History - housetrailer servicer: /Reproductive Hx- housetrailer servicer Hx Now Gestational Age (in weeks): EDC: Hx Hx Para Hx Section SAB Does the father of the baby or his family experience fever w Father of the baby Malignant Hypertension history comment Active Medications Active Medications: Current Medications Generic Name Dose Route Start Last Admin Trade Name Freq PRN Reason Stop Dose Admin Lactated Ringer's 1,000 mls @ 15 mls/hr 02/20/25 06:00 02/20/25 06:10 IV 15 mls/hr .Q48H AMY Administration PFSH Medical History Wears glasses Fatty liver Gastric reflux Wears contact lenses Alcohol use Prostate disease Dietary restriction History of diverticulitis History of Crohn's disease Non-smoker Hypertension Recurrent right inguinal hernia Home Medications Medication Instructions Recorded Last Taken Type multivitamin (Daily Multi-Vitamin 1 tab PO DAILY 07/08/24 07/13/24 History tablet) amlodipine 5 mg tablet 5 mg PO BID 07/14/24 02/20/25 05:30 History losartan 50 mg-hydrochlorothiazide 1 tab PO BID 07/14/24 07/13/24 History 12.5 mg tablet (Hyzaar) Bacillus coagulans 250 million 1 tab PO DAILY 08/17/24 Unknown History cell chewable tablet (Digestive Advantage Probiotic Gummy) peg 3350-sod sulf,[id number] See Rx Instructions PO .COMPLEX #2 11/16/24 Unknown Rx 178.7-7.3-0.5-1.12-0.9 gram oral mL soln (Suflave) ferrous sulfate 325 mg (65 mg 325 mg PO QDAY #90 tabs 12/28/24 Unknown Rx iron) tablet,delayed release dicyclomine 10 mg capsule 10 mg PO TID PRN abdominal pain, 02/07/25 Unknown Rx cramping #90 caps ascorbic acid (vitamin C) 500 mg 500 mg PO DAILY 02/16/25 Unknown History tablet (Vitamin C) omeprazole 40 mg capsule,delayed 40 mg PO QDAY PRN GERD 02/16/25 Unknown History release infliximab 100 mg intravenous mg IV .every 8 weeks 02/20/25 Unknown History solution (Remicade) Allergy/AdvReac Type Severity Reaction Status Date / Time lactose (lactose intolerant) Allergy Severe OTHER Verified 02/20/25 05:53 Family History Father Arthritis Surgical History History of bowel resection History of appendectomy History of vasectomy (~03/2018) Hernia Social History Smoking Status: Never smoker alcohol intake: current alcohol intake frequency: a few times a month Review of Systems (Anesthesia) ROS Narrative System reviewed and no additional complaints, except as documented.
--- NOTE | 2025-02-20 06:30 | COLBX_PTH ---
PATIENT: CAITLIN WARREN LOC: EN U#:[id number] AGE/SX: 39/M ROOM: RE02/20/[address]: Dr. Price Villanueva DO : 1985 BED: DIS: 02/20/2025 SPEC #: [id number] RECD: 02/20/25 11:58 STATUS: VIGNESH CATALINA #: [id number] SANTIAGO: 02/20/25 06:[address]: Price Villanueva DEPT: SURGICAL PATHOLOGY RECD BY: Bandar Murray ENTERED: 02/20/25 14:19 SP TYPE: COLON BX OTHR DR: Dr. Doni Degroot MD Tissues: A - Ileum, NOS B - COLON BIOPSY C - COLON BIOPSY D - Sigmoid colon biopsy Procedures: Surgery Specimen Level IV HEADER OPERATION: Colonoscopy with biopsy PRE-OP DIAGNOSIS: Crohn's disease TISSUE SUBMITTED: A- Terminal ileum biopsy, B- Anastomosis biopsy, C- Random colon biopsy, D- Sigmoid colon biopsy MICROSCOPIC DIAGNOSIS A. Small intestine, terminal ileum, biopsy: * Small bowel mucosa with no pathologic change B. Anastomosis,site, biopsy: * Quiescent (inactive colitis) * Negative for granulomas or dysplasia C. Colon, random biopsy: * Focal active colitis * Negative for granulomas or dysplasia D. Colon, sigmoid, biopsy: * Colonic mucosa with no pathologic change MICROSCOPIC DESCRIPTION Slides are reviewed. GROSS DESCRIPTION A. Received in fixative is one container labeled with the patient's name and designated "Terminal ileum biopsy." The specimen consists of multiple irregular fragments of fuchs tissue that in aggregate measure 1.7 x 0.6 x 0.1 cm. The specimen is totally submitted in one cassette. B. Received in fixative is one container labeled with the patient's name and designated "Anastamosis biopsy." The specimen consists of three irregular fragments of fuchs tissue that measure 0.1 to 0.4 cm. The specimen is totally submitted in one cassette. C. Received in fixative is one container labeled with the patient's name and designated "Random colon biopsy." The specimen consists of multiple irregular fragments of fuchs tissue that in aggregate measure 1.4 x 0.7 x 0.1 cm. The specimen is totally submitted in one cassette. D. Received in fixative is one container labeled with the patient's name and designated "Sigmoid colon biopsy." The specimen consists of two irregular fragments of fuchs tissue that measure 0.2 and 0.3 cm. The specimen is totally submitted in one cassette. MN 02/20/2025 CPT:[id number]
--- NOTE | 2025-02-20 06:36 | PCM.HP.STD ---
HPI - General General Date of Admission: 02/20/25 Date of Service: 02/20/25 HPI Narrative CAITLIN WARREN, is a 39 M who presents [Chief Complaint: f/u Crohn's Details: CAITLIN WARREN is a 39 M who presents to the office today for follow-up of Crohn's with diarrhea, abdominal pain and bloating. OV 08/18/2024 39-year-old male with newly diagnosed Crohn's disease, confirmed by surgical pathology following admission for acute appendicitis and intra-abdominal abscess. He underwent appendectomy with ileocolic resection and ileocolonic anastomosis, with intraoperative findings of dense adhesions and a sigmoid enterotomy requiring oversewing. Pathology revealing full-thickness chronic active inflammation, ulceration, fibrosis adhesions, and fistula formation at the ileocecal junction, consistent with Crohn's disease. He has a remote history of rectal abscesses approximately 15 years ago. Postoperative course was uncomplicated; he was started on course of budesonide 9 mg daily and metronidazole 250 mg twice daily and has since shown clinical improvement. Colonoscopy revealed mild active chronic ileocolitis at the anastomosis site with otherwise normal mucosa and no evidence of diffuse small bowel involvement. MRE showed mild wall thickening at the neoterminal ileum, likely related to postsurgical changes or fibrosis, with no evidence of active inflammation, stricture, or fistulizing disease. Fecal calprotectin was 71, and follow-up labs revealed a low potassium (3.2) but otherwise stable CBC and normal hepatic panel. TPMT and infectious screening (Quantiferon, hepatitis panel) were unremarkable. 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 Budesonide will be tapered gradually after completion of infliximab loading doses over 8 to 12 weeks, and metronidazole will be discontinued at this time, as there is no current evidence of infection or perianal involvement. Labs including CBC, CMP, and TPMT will be monitored closely during azathioprine titration, with target dosing of 2 to 2.5 mg/kg/day, titrated over several weeks as tolerated. Infliximab will be initiated with standard induction (weeks 0, 2, 6), followed by maintenance dosing every 8 weeks. The patient has been counseled on risks, benefits, and monitoring requirements for combination immunosuppression and agrees with plan. Note: [employer] speech recognition business continuity manager software was used to create portions of this document. Sound-alike and misspelled words, as well as other business continuity manager errors may be contained in the documentation. Patient Instructions: 1. Discontinue Metronidazole 2. Start Imuran 50mg once daily x2 weeks, if tolerated and labs are stable (CBC, CMP), will increase to 100 mg daily. With continued follow-up labs over the next 1 to 2 weeks, we will then consider increasing to 150 mg daily as tolerated. Prescription sent to your local pharmacy 3. Start Remicade 5mg/kg with [facility] - notify me once you are scheduled for your first loading dose and then update me 1-2 days after your first loading dose with side effects. Monitor for nausea, vomiting, abdominal pain or cramping, loss of appetite, diarrhea, or signs of pancreatitis (rare) with severe upper abdominal pain, nausea, and vomiting. Usually occurs within the first few weeks. 4. Budesonide: start to taper after completion of loading doses, decrease to 6mg (2 capsules) daily after 3rd loading dose of Remicade, continue 6mg daily x4 weeks and then decreased to 3mg daily x4 weeks and then discontinue. 5. Fecal Calprotectin/CRP 3 months after initiation of Remicade/Imuran - order has been written 6. Colonoscopy 6 months after initiation of Remicade/Imuran 7. Recommend influenza vaccine yearly 8. Discussed risk of basal cell cancers developing in patients on TNF therapy. I recommended routine dermatology screenings, at least yearly. CBC: 11/18/2024 HGB 12.3 CMP: 11/18/2024 K+ 2.9, normal transaminases and renal function CRP: 11/18/2024 WNL (06/20/2024 elevated 4.6) B12: 06/20/2024 358 Vitamin 34.6 Celiac Serologies: 05/03/2024 negative QUANTIFERON: 05/03/2024 negative HBVsAb: 05/03/2024 reactive HBV Core Total Ab: 05/03/2024 negative SB imaging: MRE 06/13/2024 There is a short segment of mild apparent wall thickening along the neoterminal ileum, without convincing evidence of associated active inflammation. This could be related to underdistention, or perhaps fibrosis related to previous inflammation. This would be optimally ended evaluated endoscopically. No bowel dilatation to confirm that this reflects a stricture. No other abnormal areas of abnormal bowel are confidently identified, allowing for limitations. No definite evidence of penetrating disease such as fistulization or abscess. COLON: 07/14/2024 Mild active chronic ileocolitis, negative for dysplasia Fecal Calprotectin: 11/18/2024 elevated 116 April 2024 elevated 71 BIOLOGICS: Remicade (START DATE 08/30/2024) - last infusion 12/06 next due 01/31 Imuran - 50mg daily start August 2024 - Discontinue 11/02/2024 due to elevated transaminases and lipase, transaminases normalized with discontinuing STEROIDS: Budesonide start 05/05/2024 at 9mg daily, this was decreased to 3mg on 11/13/2024, - mid November increased back to 6mg daily and has been doing better VACCINES COVID: Varicella Vaccine: Shingles Vaccine: Hepatitis B Vaccine: Pneumonia Vaccine: Influenza Vaccine: IBD SYMPTOMS: Bowel movements are: 2-3x a day, they were formed before going on a cruise and now they are loose, but states he did his best in terms of stools he reports he has less diarrhea on Budesonide 6mg daily Blood noted in stools: denies Bowel movement urgency present: yes, intermittent Stool incontinence: denies, some before increasing back to 6mg daily Nocturnal BM's: denies Abdominal pain: yes, intermittent RLQ pain, onset was sudden with gradual increase in intensity, last 10 minutes for so and then resolves Rectal pain: denies any rectal pain - next colonoscopy scheduled for 02/20 - he is avoiding spicy foods, fruit juices - he is avoiding raw vegetables - ice cream causes pain and diarrhea QOL: better with Remicade, not missing work, symptoms are not slowing him down ROS: Fever: denies Night Sweats: denies Visual changes: denies Mouth sores: denies Joint pain: denies Skin rashes/Lesions: denies Weight changes: denies Smoking status: denies NSAID use: denies Discussed importance of influenza vaccine yearly Discussed risk of basal cell cancers developing in patients on TNF therapy. I have recommended routine dermatology screenings, at least yearly. RECALL COLONOSCOPY 6 months after initiating therapy with Remicade (colonoscopy scheduled for 02/20) [facility] Medical History Wears glasses Fatty liver Gastric reflux Wears contact lenses Alcohol use Prostate disease Dietary restriction History of diverticulitis History of Crohn's disease Non-smoker Hypertension Recurrent right inguinal hernia Home Medications Medication Instructions Recorded Last Taken Type multivitamin (Daily Multi-Vitamin 1 tab PO DAILY 07/08/24 07/13/24 History tablet) amlodipine 5 mg tablet 5 mg PO BID 07/14/24 02/20/25 05:30 History losartan 50 mg-hydrochlorothiazide 1 tab PO BID 07/14/24 07/13/24 History 12.5 mg tablet (Hyzaar) Bacillus coagulans 250 million 1 tab PO DAILY 08/17/24 Unknown History cell chewable tablet (Digestive Advantage Probiotic Gummy) peg 3350-sod sulf,[id number]-jro-oso See Rx Instructions PO .COMPLEX #2 11/16/24 Unknown Rx 178.7-7.3-0.5-1.12-0.9 gram oral mL soln (Suflave) ferrous sulfate 325 mg (65 mg 325 mg PO QDAY #90 tabs 12/28/24 Unknown Rx iron) tablet,delayed release dicyclomine 10 mg capsule 10 mg PO TID PRN abdominal pain, 02/07/25 Unknown Rx cramping #90 caps ascorbic acid (vitamin C) 500 mg 500 mg PO DAILY 02/16/25 Unknown History tablet (Vitamin C) omeprazole 40 mg capsule,delayed 40 mg PO QDAY PRN GERD 02/16/25 Unknown History release infliximab 100 mg intravenous mg IV .every 8 weeks 02/20/25 Unknown History solution (Remicade) Allergy/AdvReac Type Severity Reaction Status Date / Time lactose (lactose intolerant) Allergy Severe OTHER Verified 02/20/25 05:53 Family History Father Arthritis Surgical History History of bowel resection History of appendectomy History of vasectomy (~03/2018) Hernia Social History Smoking Status: Never smoker alcohol intake: current alcohol intake frequency: a few times a month ROS Constitutional Constitutional: Denies fatigue, fever(s), poor appetite, weight gain or weight loss Gastrointestinal Gastrointestinal: Denies belching, bloating, change in bowel habits, change in stool character, chewing difficulty, coffee ground emesis, constipation, cramping, diarrhea, dyspepsia, dysphagia, early satiety, excessive flatus, fecal incontinence, heartburn, hematemesis, hematochezia, hemorrhoids, loose stools, melena, nausea, odynophagia, rectal bleeding, tenesmus, vomiting or weight changes Vital Signs Vital Signs Vital Signs: 02/20/25 05:56 02/20/25 06:01 02/20/25 06:33 Temperature 97.6 F L 97.6 F L Temperature Source Temporal Pulse Rate 69 69 Respiratory Rate 16 16 Respiratory Pattern Normal Blood Pressure 119/88 H 119/88 H Blood Pressure Mean 98 Blood Pressure Source Monitor Blood Pressure Position Semi-Fowlers Blood Pressure Location Left Arm Pulse Ox 97 97 Oxygen Delivery Method Room Air Room Air Weight Weight: 211 lb 10.3 oz Body Mass Index (BMI) 27.9 Physical Exam Const alert, oriented x3, no apparent distress and healthy appearing General Appearance: cooperative GI normal to inspection, nondistended, normoactive bowel sounds, soft to palpation, non-tender and non-distended Percussion: normal to percussion Rectal Exam: deferred Assessment & Plan Assessment/Plan (1) Crohn disease: QUALIFIERS: Gastrointestinal tract location: small and large intestine Digestive disease complication type: with fistula Qualified Code(s): K50.813 - Crohn's disease of both small and large intestine with fistula PLAN: Assessment and Plan Assessment and Plan (1) Crohn disease: Status: Acute Qualifiers: Gastrointestinal tract location: small and large intestine Digestive disease complication type: with fistula Qualified Code(s): K50.813 - Crohn's disease of both small and large intestine with fistula Comment: 03/21/2024 exploratory laparoscopy, lysis of dense adhesions, oversewing sigmoid enterotomy, ileocecal resection and side to side anastomosis. Pathology is revealing for ileocecal junction with active chronic inflammation with ulceration, full-thickness inflammation, fibrous serosal adhesions and fistula consistent with crohn's. 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 Addressing dietary triggers while ensuring nutritional balance is a priority. Monitoring and documenting symptoms in relation to food intake will assist in a tailored dietary plan. 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, unspecified, R19.7 - Diarrhea, unspecified, R74.8 - Abnormal levels of other serum enzymes, Z51.81 - Encounter for therapeutic drug level monitoring Comprehensive Metabolic Profil Today D84.9 - Immunodeficiency, unspecified, K50.813 - Crohn's disease of both small and large intestine with fistula, 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, unspecified, R19.7 - Diarrhea, unspecified, R74.8 - Abnormal levels of other serum enzymes, Z51.81 - Encounter for therapeutic drug level monitoring CRP Today D84.9 - Immunodeficiency, unspecified, K50.813 - Crohn's disease of both small and large intestine with fistula, 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 Medications: Changed From budesonide DR-ER 9 mg (3 x 3 mg) PO QAM 100 ea 1RF Crohn's To budesonide DR-ER 6 mg PO QAM Crohn's Plan 39-year-old male presents for follow-up of Crohn's disease, confirmed by surgical pathology following admission for acute appendicitis and intra-abdominal abscess. Colonoscopy was performed July 2024 and revealed mild active colonic ileocolitis at the anastomosis. MR E showed mild wall thickening at the neoterminal ileum, likely related to postsurgical changes or fibrosis, with no evidence of active inflammation, stricture, or fistulizing disease. He started on Imuran and Remicade August 2024, Imuran was subsequently discontinued secondary to mild increase in transaminases and lipase. Although, reported today the labs which revealed elevation in transaminases were drawn after patient had consumed a couple beers the evening prior. Fecal calprotectin completed 11/18/2024 was borderline at 116, this was mildly increased from 71 this past April. Overall he notes an improvement in abdominal pain and diarrhea with initiation of biologic therapy. He was started on budesonide at 9 mg daily this past April and taper began after completion of loading doses of Remicade. He decreased to 3 mg daily on November 13, 2024 and had reported an increase in abdominal pain and diarrhea with decreased dosing. His budesonide dose was increased back to 6 mg daily mid November. I have ordered labs to be completed today and he will decrease budesonide to 3 mg daily starting tomorrow (12/27/2024) for 3 weeks and then will decrease to 3 mg every other day for 1 week and discontinue. He will proceed with colonoscopy as planned on 02/20/2025. His next Remicade dose is due 01/31/2025 and I have ordered infliximab level and antibodies to be drawn just prior to his next infusion. He will keep me apprised of any changes in his symptoms. Patient Instructions: Complete labs today Infliximab level with antibodies to be drawn just prior to next infusion on 01/31/2025 Tomorrow (12/27/2024) decrease budesonide to 3 mg daily for 3 weeks and then decrease to 3 mg every other day for 1 week and discontinue Proceed with colonoscopy as scheduled on 02/20/2025-[place] Follow-up in office in 4 months Keep a record of abdominal pain episodes and associated symptoms Plan Details Follow Up: 4 Months
--- NOTE | 2025-02-20 07:13 | OP.PROVAT_ITS ---
02/20/2025 Doni Degroot Md Re : Colonoscopy procedure for Jair Issa Dear Zane This procedure was performed on Thursday, February 20, 2025. My impressions and recommendations are as follows: Impressions : - Simple Endoscopic Score for Crohn's Disease: 4, mucosal inflammatory changes secondary to Crohn's disease. Biopsied. Recommendations : - Discharge patient to home. - Resume previous diet. - Continue present medications. - Await pathology results. - Repeat colonoscopy in 1 year for surveillance based on pathology results. My findings are described in the full procedure note, which is enclosed. If I can be of further assistance, please feel free to contact me at . Sincerely, Price Villanueva, 02/20/2025 7:12:30 AM This report has been signed electronically.
--- NOTE | 2025-02-20 07:13 | OP.COLON_ITS ---
Patient Name: Jair Issa Procedure Date: 02/20/2025 6:17 AM Date of : 1985 Age: 39 Procedure: Colonoscopy Indications: Follow-up of Crohn's disease of the small bowel and colon, Disease activity assessment of Crohn's disease of the small bowel and colon, Assess therapeutic response to therapy of Crohn's disease of the small bowel and colon Providers: Price Villanueva DO Referring MD: Doni Degroot Md Medicines: Monitored Anesthesia Care Patient Profile: This is a 39 year old male. Refer to note in patient chart for documentation of history and physical. Last Colonoscopy: several years ago. Complications: No immediate complications. Procedure: Pre-Anesthesia Assessment: - Prior to the procedure, a History and Physical was performed, and patient medications and allergies were reviewed. The patient is competent. The risks and benefits of the procedure and the sedation options and risks were discussed with the patient. All questions were answered and informed consent was obtained. Patient identification and proposed procedure were verified in the pre-procedure area. Mental Status Examination: alert and oriented. Airway Examination: normal oropharyngeal airway and neck mobility. Respiratory Examination: clear to auscultation. CV Examination: normal. Prophylactic Antibiotics: The patient does not require prophylactic antibiotics. Prior Anticoagulants: The patient has taken no anticoagulant or antiplatelet agents except for NSAID medication. ASA Grade Assessment: II - A patient with mild systemic disease. After reviewing the risks and benefits, the patient was deemed in satisfactory condition to undergo the procedure. The anesthesia plan was to use monitored anesthesia care (MAC). Immediately prior to administration of medications, the patient was re-assessed for adequacy to receive sedatives. The heart rate, respiratory rate, oxygen saturations, blood pressure, adequacy of pulmonary ventilation, and response to care were monitored throughout the procedure. The physical status of the patient was re-assessed after the procedure. After I obtained informed consent, the scope was passed under direct vision. Throughout the procedure, the patient's blood pressure, pulse, and oxygen saturations were monitored continuously. The Colonoscope was introduced through the anus and advanced to the ileocolonic anastomosis. The colonoscopy was performed without difficulty. The patient tolerated the procedure well. The quality of the bowel preparation was adequate. The ileocecal valve, appendiceal orifice, and rectum were photographed. Scope In: 6:52:33 AM Scope Withdrawal Time 0 hours 8 minutes 21 seconds Scope Out: 7:05:42 AM Total Procedure Duration Time 0 hours 13 minutes 9 seconds Findings: The perianal and digital rectal examinations were normal. Pertinent negatives include normal sphincter tone. The Simple Endoscopic Score for Crohn's Disease was determined based on the endoscopic appearance of the mucosa in the following segments: - Ileum: Findings include aphthous ulcers less than 0.5 cm in size, less than 10% ulcerated surfaces, less than 50% of surfaces affected, no narrowings and no ulcers present, no ulcerated surfaces, no affected surfaces and no narrowings. Segment score: 3. - Right Colon: Findings include no ulcers present, no ulcerated surfaces, no affected surfaces, no narrowings and no ulcers present, no ulcerated surfaces, no affected surfaces and no narrowings. Segment score: 0. - Transverse Colon: Findings include no ulcers present, no ulcerated surfaces, no affected surfaces, no narrowings and no ulcers present, no ulcerated surfaces, no affected surfaces and no narrowings. Segment score: 0. - Left Colon: Findings include no ulcers present, no ulcerated surfaces, less than 50% of surfaces affected, no narrowings and no ulcers present, no ulcerated surfaces, no affected surfaces and no narrowings. Segment score: 1. - Rectum: Findings include no ulcers present, no ulcerated surfaces, no affected surfaces, no narrowings and no ulcers present, no ulcerated surfaces, no affected surfaces and no narrowings. Segment score: 0. - Total SES-CD aggregate score: 4. Biopsies were taken with a cold forceps for histology. Verification of patient identification for the specimen was done. Estimated blood loss was minimal. Impression: - Simple Endoscopic Score for Crohn's Disease: 4, mucosal inflammatory changes secondary to Crohn's disease. Biopsied. Recommendation: - Discharge patient to home. - Resume previous diet. - Continue present medications. - Await pathology results. - Repeat colonoscopy in 1 year for surveillance based on pathology results. Procedure Code(s): --- Professional --- 58749, Colonoscopy, flexible; with biopsy, single or multiple CPT copyright 2021 [employer]. All rights reserved. The codes documented in this report are preliminary and upon mooner review may be revised to meet current compliance requirements. Price Villanueva DO 02/20/2025 7:12:30 AM This report has been signed electronically. Number of Addenda: 0 Note Initiated On: 02/20/2025 6:17 AM
--- NOTE | 2025-02-20 07:14 | PCM.POST.ANE ---
Anesthesia: Postop Eval I Current Vital Signs Temperature: 97 F Pulse Rate: 72 Blood Pressure: 104/66 Respiratory Rate: 16 Pulse Ox: 97 Oxygen Delivery Method: Room Air Assessment Airway patent: Yes Spontaneous unlabored respirations: Yes Mental status: Asleep nausea: No Vomiting: No Anesthesia Complication: No Fluid Hydration Crystalloid volume administer (ml): 500 Total IV fluid infused: 500 Progress Note Anesthesia document: Postop Eval 1 completed: Yes
--- NOTE | 2025-02-20 13:57 | PCM.POSTANE2 ---
Anesthesia Postop Eval I Sum Postop Eval Completion status Anesthesia document: Postop Eval 1 completed: Yes Anesthesia Postop Eval I Summary Anesthesia Postop Eval I Summary: Anesthesia Postop Eval I: Assessment Summary Airway patent Yes 02/20/25 07:16 [email or web address] Spontaneous unlabored Yes 02/20/25 07:16 [email or web address] respirations Mental status Asleep 02/20/25 07:16 [email or web address] nausea No 02/20/25 07:16 [email or web address] Vomiting No 02/20/25 07:16 [email or web address] Anesthesia Postop Eval I: Fluid Summary Crystalloid volume administer 500 02/20/25 07:16 [email or web address] (ml) Colloids volume administered ( ml) Blood Product volume administered (ml) Total IV fluid infused 500 02/20/25 07:16 [email or web address] Anesthesia Postop Eval I: Summary Notes Anesthesia Complication No 02/20/25 07:16 [email or web address] Anesthesia Complication Comment: Post-operative progress note Anesthesia: Postop Eval II Evaluation Mental status: Awake Pain Level: 0 nausea: No Vomiting: No Complications Anesthesia Complication: No
== END 2025-02-20 07:51 | disposition home or self-care (01) ==
LOC: EN 05:33 → AC 05:34
PROVIDERS: PCP Family Medicine; Referring Provider Family Medicine; Visit Provider Internal Medicine Gastroenterology
DX: K50.813 Crohn's disease of both small and large intestine with fistula (principal); I10 Essential (primary) hypertension; Z79.899 Other long term (current) drug therapy; Z90.49 Acquired absence of other specified parts of digestive tract; Z98.52 Vasectomy status; D84.9 Immunodeficiency, unspecified; R74.8 Abnormal levels of other serum enzymes; K90.9 Intestinal malabsorption, unspecified; Z51.81 Encounter for therapeutic drug level monitoring; R19.7 Diarrhea, unspecified
CPT/HCPCS: 45380; 88305; J2405

== ENCOUNTER → 2025-03-07 | Outpatient (CLI) | payer BC, SELFPAY ==
--- NOTE | 2025-03-07 07:42 | US_ITS ---
PROCEDURE: ABD LIMITED W/ ELASTOGRAPHY REASON FOR EXAM: ABD PAIN, ELEVATED LIVER ENZYMES COMPARISON: None. TECHNIQUE: Procedure Code: [id number] Modality: US Procedure: ABD LIMITED W/ ELASTOGRAPHY Right upper quadrant abdominal ultrasound. [employer] ElastQ Imaging shear wave elastography for non-invasive assessment of liver tissue stiffness. [employer] EPIQ Elite. FINDINGS: LIVER: Size: Unremarkable Length: 16.3 cm Echotexture: Diffusely echogenic suggesting fatty infiltration Contour: Normal Lesions: None identified Elastography: EQI Med: 6.2 kPa EQI Med James: 1.43 m/s IQR/Med: 13.3 %* GALLBLADDER: Normal COMMON BILE DUCT: Normal measuring 6 mm. . PANCREAS: Normal Visualized portions of the right kidney are unremarkable. No right upper quadrant ascites. Spleen: The spleen measures 11.8 cm 3.9 cm 3.5 cm. US/ABD Limited w/ Elastography IMPRESSION: NO TO MILD HEPATIC FIBROSIS Fatty infiltration of the liver. Reference Values: SRU <1.37 m/s (5.7kPa): No to mild fibrosis 1.37 m/s - 2.2 m/s: Moderate to severe fibrosis >2.2 m/s (15kPa): Significant fibrosis / cirrhosis METAVIR Score F2 or higher: 1.34 m/s (5.7kPa) F3 or higher: 1.55 m/s (7.3kPa) F4: 1.80 m/s (10kPa) * If the IQR/Med is >30%, the variance in the measurements is a large and the a ccuracy of the measurement may be in question. Reading Location: [id number]
--- OUTSIDE RECORDS SUMMARY | 2025-03-07 07:44 | XMS RPT_ITS | CCD ---
Author Organization [facility] Care Team Providers Care Gasoline Tester Name Role Phone BRITTANY SPENCE Unavailable Unav rose marie WARREN MD, JENNIFER Unavailable [place] AGUILAR Unavailable Unavailable ALICIA BELCHER Unavailable Malgorzata OLIVEIRA MD Unavailable [phone] SURGERY, GENERAL Unavailable Unavailable SIMRAN RAMAN, MICHELE Hoffman Unavailable TOSIN MUNOZ MD Unavailable Rachel Campos Unavailable Unavailable ROXANA RUEDA Unavailable Unavailable Prieto WARREN MD Unavailable FANI HARRIS Unavailable Unavailable Libertad Blank Unavailable Unavailable GERALDO GEE MD Unavailable [phone] Maurilio Gee Unavailable Unavailable Irma Feliciano RN Unavailable Unavailable Jennifer Corley Unavailable Unavailable Unavailable Unavailable MORENITAOZZIE MANZANARES Attending Unava ilable MORENITAOZZIE MANZANARES Admitting Unava ilable JENNIFER WARREN Referring [...] Unavailable AMAN DIOP Consulting Unavailable ORION, JOSEFINA SHAPE BRICK MOLDER Admitting Unavailab le ORION, JOSEFINA SHAPE BRICK MOLDER Primary Care Unavailab le ORION, JOSEFINA SHAPE BRICK MOLDER Attending Unavailab le PROVIDER, UNKNOWN Consulting Unavailable PROVIDER, UNKNOWN Consulting Unavailable PROVIDER, UNKNOWN Consulting Unavailable Orion SALES PROGRAM COORDINATOR-C, Josefina Attending Provider Dr. Jennifer Warren MD Referring Provider [phone] Care Physician, No Primary Primary Care Provider Unavailable Orion SALES PROGRAM COORDINATOR-C, Josefina Referring Provider Zane RAMAN, Dr. Marion Primary Care Provider Care Physician, No Primary Referring Provider Un available AMAN DIOP MD Unavailable [phone] Rich PERRY, Dr. Thrasher Attending Provider Dr. Aman Diop MD Referring Provider Dr. Price Villanueva DO Other Provider [phone] ORION, JOSEFINA E Referring Unavailable ORION, JOSEFINA E Referring Unavailable ORION, JOSEFINA E Referring Unavailable ORION, JOSEFINA E Referring Unavailable ORION, JOSEFINA E Referring Unavailable Diop , Dr. Marion Primary Care Physician Zane RAMAN, Dr. Marion Referring Provider Orion SALES PROGRAM COORDINATOR-C, Josefina Attending Physician [phone] Orion SALES PROGRAM COORDINATOR-C, Josefina Referring Provider FANI FENG Consulting Unavailable [...] (4 sources) Lactose Drug Allergy 07-14-2024 OTHER [facility] (1 source) Lactose Drug Allergy 02-16-2025 [facility] Repository Medications Current Medications Medication Drug [...] on above: take with FeSo4 bacillus coagulans [id number] unt chewable tablet (9 sources) Start: 06-20-2024 [...] Inactive Comments: Medication taken as needed. [facility] Comment on above: Medication taken as needed. [facility] amoxicillin 500 mg oral capsule (17 sources) [...] sources) Start: 05-05-2024 End: 06-13-2024 Peg 3350-Sod Sulf,Nlzi-Gao-Uuq (Suflave) 178.7-7.3-0.5 gram recon soln Discontinued 0 [...] sources) H/O: high risk medication; Translations: [Other nursing home (current) drug therapy] 07-02-2020 Episodic Other aftercare [...] pain or syncope. Note for Blood pressure check-up: Blood Pressure has been running high since Surgery in [place] - Also followed up with Gastro in [place] 07-04-2024 Unclassified (8 sources) [ADDITIONAL REASON] Prostatitis, Chronic - Symptoms do not include chronic pain. Note for Chronic prostatitis: Dx showed up on the MRE - see Imaging report 07-04-2024 Unclassified (4 sources) Prostatitis, Chronic - Symptoms do not include chronic pain. Note for Chronic prostatitis: Dx showed up on the MRE - see Imaging report 07-04-2024 Unclassified (4 sources) [ADDITIONAL REASON] Blood pressure check - The symptoms include headache and visual disturbances, while symptoms do not include dizziness, shortness of breath, edema, chest pain or syncope. Note for Blood pressure check-up: Blood Pressure has been running high since Surgery in [place]. - Also followed up with Gastro in [place] 07-04-2024 Unclassified (1 source) Elevation of levels of liver transaminase levels; Translations: [Elevation of levels of liver transaminase levels] Onset: Past or Other Problems Problem Classification Problem Date Documented Da te Episodic/Chronic Headache; including migraine (2 sources) Headache; including migraine 01-09-2025 Unclassified (17 sources) Abdominal Pain, Male - Note for Abdominal pain: Pt. reports pain in abdomen, left lower quadrant starting last night. Had BM with bright red blood last night, and noted maroon colored blood this morning with BM. Pt. reports Hx IBS and states stools are usually loose consistency. Pt. also reports low grade temp x 24 hrs. (99's). 06-25-2022 Unclassified (17 sources) Anxiety - There has been no associated agitation. Note for Anxiety: Hydroxyzine made pt excessively sleepy. Was switched to Xanax. Working well. Using it up to 3 x a week. 07-02-2020 Unclassified (17 sources) Anxiety - The anxiety has been occurring for 6 months. The anxiety is characterized as apprehension and nervousness. Note for Anxiety: Had a promotion at work which has led to more stress. 06-04-2020 Unclassified (17 sources) Hernia, Inguinal - Note for Inguinal hernia: pt c/o hernia and is interested in vasectomy. 10-26-2017 Unclassified (17 sources) !Patient notification of lab results 1 - Note for !Patient notification of lab results 1: . 05-12-2013 Unclassified (17 sources) Skin Check - Symptoms include skin lesion (lump). The lesion is located on the right buttock. Onset was 1 week(s) ago. Lesion progression includes growing larger and becoming more painful. Note for Skin check: . 05-12-2013 Unclassified (17 sources) Abdominal pain - The abdominal pain is described as sharp pain and stabbing. Note for Abdominal pain: Was seen 06/11/12 and treated for gastritis [...] associated with diarrhea or vomiting. Note for Abdominal pain: . 06-11-2012 Unclassified (17 sources) Inguinal Pain - Symptoms include inguinal pain and inguinal swelling, while symptoms do not include redness or warmth. Symptoms are located in the right groin region. The patient describes the pain as dull and aching. Onset was 2 week(s) ago. Note for Inguinal Pain: Lifts heavy objects often. Family Hx of hernia. Has IBS. 04-15-2011 Unclassified (17 sources) Cough - The cough has been occurring for 1 week. The cough is characterized as productive of mucopurulent sputum. The symptoms have been associated with fever (for 1 day). 04-15-2010 Unclassified (1 source) [ADDITIONAL REASON] Follow up Tests results - Note for Follow up to discuss laboratory test results: sees gastro and having low potassium levels. Pt is decreasing and this week stopping Budesonide. 01-09-2025 Unclassified (1 source) Follow up Tests results - Note for Follow up to discuss laboratory test results: sees gastro and having low potassium levels. Pt is decreasing and this week stopping Budesonide. 01-09-2025 Results Test Name Value Interpretation Reference Range Facility MR/PATDigna 02-16-2025 MR/PATJORY [facility] Medical Records Department [address] [place] [address] PAT - Anesthesia 02/16/25 1733 MR#: [id number] Acct: [id number] Name: JAIR WARREN Rep #: [id number] : 1985 39 From: Mk Lomeli MD PCP: Dr. 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 Hx Hospitalization Yes: 03/21/2024-- [facility] 02/16/25 [...] take am of surgery PONV PONV - color drum worker: PONV - color drum worker Female No 02/16/25 11:40 HX of Motion [...] 07/14/24 06:12 Respiratory Assessment Respiratory Assessment - color drum worker: Respiratory Tract Infection Hx - color drum worker Hx Respiratory Tract Infection Yes: SORE THROAT 02/1602/16/25 11:40 STOP Sleep Apnea STOP Sleep Apnea - color drum worker: STOP Sleep Apnea - color drum worker Hx Hypertension Yes: CONTROLLED WITH MEDS 02/16/25 [...] Tobacco Use History Tobacco Use History - color drum worker: Tobacco Use History - color drum worker Tobacco Use Smoking Status Never smoker 02/16/25 11:40 Hx Tobacco Use No 02/16/25 11:40 Years Smoking Packs Smoked per Day Smoking Cessation Date was within the last 15 years Hx Smoking Cessation Date Hx Smoking Cessation Counseling Hematologic Medial History Hematologic Hx - color drum 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 Normal [facility] [id number] 02-07-2025 [facility] Misc. COMMENT Normal . [facility] Comment on above: Order Comment: Comme nts: Infliximab Quantitation with Reflex to [id number] Quantitation SERFZ Result Comment: Test Ordered: [id number] Infliximab Drug + Antibody Infliximab Drug Level [...] 2017;153:835-857. 2. Fabiana A, et al. Gastroenterol 2016;150(4):J506-W500. 3. Karla GJ, et al. Christiana Rheum Dis 2005;64:704-707. 4. Woody C, et al. Inflamm Bowel Dis 2012;18(12): 5359-8710. 5. Beatrice Woods, et al. Am J Gastroenterol 2013;108: 962-971. 6. Yanai H, et al. Clin Gastroenterol Hepatol 2015;13(3): 522-530. 7. Georgia A, et al. Gastroenterol 2019;156(6):S-617. 8. Iva JF, et al. Gastroenterol 2016;150(4):S144. 9. Fay J, et al. AAPS Journal 2016 DOI:10.1208/ t59164-954-6423-3. These tests were developed and their performance characteristics determined by [employer]. They have not been cleared or approved [...] these assays have been published.(9) Performed at: [facility] [address] [place] [address] [id number] Dip Dyer: Guido Verdugo MD, Phone: [phone] Performed at: [address] [id number] Dip Dyer: Jae Jones PhD, Phone: [phone] Performed By: #### L 3410.9992 ####[facility] [address] [place], [address] Infliximab,Ab to Infliximab Qton 02-03-2025 Infliximab AB QNT <20 Normal () [facility] Comment on above: Result [...] developed and its performance characteristics determined by [facility]. It has not been cleared or approved by the U.S. Food and Drug Administration. This test was performed in a CLIA-certified laboratory and is intended for clinical purposes. Performed By: [facility] [address] [place] [address] Job Estimator: Bin Mae MD, PhD CLIA Number: [id number] Performed By: #### I FXPAN #### [facility] [address] [place], [place] [address] Infliximab QNT 14.6 ug/mL Normal () [facility] Comment on above: Result Comment: INTE RPRETIVE INFORMATION: Infliximab Quantitation Limit of Quantitation = 0.5 ug/mL. Results of 0.5 ug/mL or higher indicate the detection of infliximab or an infliximab biosimilar. Therapeutic level may vary depending on the disease being treated. Performed By: #### I FXPAN #### [facility] [address], [place] [address] Abdomen/Pelvis WITH Contrast on 02-01-2025 Abdomen/Pelvis WITH Contrast [facility] Imaging Services [address] [place] [address] Abdomen/Pelvis WITH Contrast MR#: [id number] Acct: [id number] Name: JAIR WARREN Rep #: [id number] : 1985 M 39 From: Josue nj MD PCP: Dr. Aman Diop MD Status: REG CLI Study: Abdomen/Pelvis WITH Contrast Date of Exam: Exam# [id number] Ordering Dr: Josefina Sears PROCEDURE: ABDOMEN/PELVIS WITH [...] fatty infiltration of the liver. Reading Location: [facility] CC: SALES PROGRAM COORDINATORDrew Sears; Dr. Aman Diop MD Development Consultant: Signed Normal [facility] Basic Metabolic Profile (BMP )on 02-01-2025 BUN/CRE 12.6 RATIO Normal 01-23 [facility] Comment on above: Order Comment: Infli ximab Quantitation with Reflex to Antibodies Performed By: #### L 501.2450, L501.6710, L500.3400, L100.0100, L500.2500, L501.5200 ####[facility] [address] [place], [place], [phone] Calcium [Mass/Vol] 9.8 mg/dL Normal 7.6-11.0 [facility]; [facility] Work Phone: Comment on above: Order Comment: Infli ximab Quantitation with Reflex to Antibodies Performed By: #### L 501.2450, L501.6710, L500.3400, L100.0100, L500.2500, L501.5200 ####[facility] [address] [facility] [place], [address] Chloride [Moles/Vol] 99 mmol/L Normal 98-108 [facility]; [facility] Work Phone: Comment on above: Order Comment: Infli ximab Quantitation with Reflex to Antibodies Performed By: #### L 501.2450, L501.6710, L500.3400, L100.0100, L500.2500, L501.5200 ####[facility] [address] [place], [place], [phone] CO2 [Moles/Vol] 28.3 mmol/L Normal 21.0-32.0 [facility]; [facility] Work Phone: Comment on above: Order Comment: Infli ximab Quantitation with Reflex to Antibodies Performed By: #### L 501.2450, L501.6710, L500.3400, L100.0100, L500.2500, L501.5200 ####[facility] [address] [facility]. [place], [place], [phone] GAP 11 Normal 5-15 [facility]; [facility]. Work Phone: Comment on above: Order Comment: Infli ximab Quantitation with Reflex to Antibodies Performed By: #### L 501.2450, L501.6710, L500.3400, L100.0100, L500.2500, L501.5200 ####[facility] [address] [place], [place], [phone] GFR/1.73 sq M.predicted among non-blacks MDRD (S/P/Bld) [Vol rate/Area] 109 mL/min/{1.73_m2} Normal >60 [facility]; [facility] Work Phone: Comment on above: Order Comment: Infli ximab Quantitation with Reflex to Antibodies Result Comment: mL/m in/1.73m2 CKD-EPI Creatinine Equation (2020) Performed By: #### L 501.2450, L501.6710, L500.3400, L100.0100, L500.2500, L501.5200 ####[facility] [address] [place], [place], [phone] Potassium [Moles/Vol] 3.8 mmol/L Normal 3.3-5.1 [facility]; [facility] Work Phone: Comment on above: Order Comment: Infli ximab Quantitation with Reflex to Antibodies Performed By: #### L 501.2450, L501.6710, L500.3400, L100.0100, L500.2500, L501.5200 ####[facility] [address] [facility] [place], [place], [phone] Sodium [Moles/Vol] 137 mmol/L Normal 133-145 [facility]; [facility] Work Phone: Comment on above: Order Comment: Infli ximab Quantitation with Reflex to Antibodies Performed By: #### L 501.2450, L501.6710, L500.3400, L100.0100, L500.2500, L501.5200 ####[facility] [address] [place], [address] Creatinine [Mass/Vol] 0.92 mg/dL Normal 0.70-1.20 [facility]; [facility] Work Phone: Comment on above: Order Comment: Infli ximab Quantitation with Reflex to Antibodies Performed By: #### L 501.2450, L501.6710, L500.3400, L100.0100, L500.2500, L501.5200 ####[facility] [address] [place], [place], [phone] Glucose [Mass/Vol] 84 mg/dL Normal 70-99 [facility]; [facility] Work Phone: Comment on above: Order Comment: Infli ximab Quantitation with Reflex to Antibodies Performed By: #### L 501.2450, L501.6710, L500.3400, L100.0100, L500.2500, L501.5200 ####[facility] [address] [place], [place], [phone] Urea nitrogen [Mass/Vol] 12 mg/dL Normal 4-19 [facility]; [facility] Work Phone: Comment on above: Order Comment: Infli ximab Quantitation with Reflex to Antibodies Performed By: #### L 501.2450, L501.6710, L500.3400, L100.0100, L500.2500, L501.5200 ####[facility] [address] [place], [place], [phone] CBC W/Diff, Automatedon 10-2 Absolute Lymph 0.94 X10 3/uL Normal 0.83-4.51 [facility] Comment on above: Performed By: #### L 501.2450, L501.6710, L500.3400, L100.0100, L500.2500, L501.5200 ####[facility] [address] [place], [place], [phone]) Absolute Neut 3.7 X10 3/uL Normal 2.0-7.7 [facility] Comment on above: Performed By: #### L 501.2450, L501.6710, L500.3400, L100.0100, L500.2500, L501.5200 ####[facility] [address] [place], [place], [phone]) Basophils/100 WBC (Bld) 0.9 % Normal 0-1 [facility] Work Phone: Comment on above: Performed By: #### L 501.2450, L501.6710, L500.3400, L100.0100, L500.2500, L501.5200 ####[facility] [address] [place], [place], [phone]) Eosinophils/100 WBC (Bld) 3.9 % Normal 0-5 [facility] Work Phone: Comment on above: Performed By: #### L 501.2450, L501.6710, L500.3400, L100.0100, L500.2500, L501.5200 ####[facility] [address] [place], [place], [phone] Erythrocyte distribution width (RBC) [Ratio] 19.1 % High 11.6-14.6 [facility] Work Phone: Comment on above: Performed By: #### L 501.2450, L501.6710, L500.3400, L100.0100, L500.2500, L501.5200 ####[facility] [address] [place], [place], [phone] Hematocrit (Bld) [Volume fraction] 41.9 % Normal 40-54 [facility]; [facility] Work Phone: Comment on above: Performed By: #### L 501.2450, L501.6710, L500.3400, L100.0100, L500.2500, L501.5200 ####[facility] [address] [place], [place], [phone] Hemoglobin (Bld) [Mass/Vol] 13.7 g/dL Normal 13.0-16.5 [facility] Work Phone: Comment on above: Performed By: #### L 501.2450, L501.6710, L500.3400, L100.0100, L500.2500, L501.5200 ####[facility] [address] [place], [place], [phone] IG% 0.200 Normal 0.0-0.9 [facility] Work Phone: Comment on above: Result Comment: IG% - Immature Granulocytes (promyelocytes, myelocytes and metamyelocytes) > 1% indicates that a LEFT SHIFT is Present. Performed By: #### L 501.2450, L501.6710, L500.3400, L100.0100, L500.2500, L501.5200 ####[facility] [address] [facility] [place], [place], [phone] Lymphocytes/100 WBC (Bld) 16.8 % Low 19-41 [facility] Work Phone: Comment on above: Performed By: #### L 501.2450, L501.6710, L500.3400, L100.0100, L500.2500, L501.5200 ####[facility] [address] [facility] [address] [place], [place], [phone]) MCH (RBC) [Entitic mass] 26.7 pg Low 27.0-32.0 [facility]; [facility] Work Phone: Comment on above: Performed By: #### L 501.2450, L501.6710, L500.3400, L100.0100, L500.2500, L501.5200 ####[facility] [address] [place], [place], [phone]) MCHC (RBC) [Mass/Vol] 32.7 g/dL Normal 32-36 [facility]; [facility] Work Phone: Comment on above: Performed By: #### L 501.2450, L501.6710, L500.3400, L100.0100, L500.2500, L501.5200 ####[facility] [address] [facility] [place], [place], [phone]) MCV (RBC) [Entitic vol] 81.5 fL Normal 80-94 [facility]; [facility] Work Phone: Comment on above: Performed By: #### L 501.2450, L501.6710, L500.3400, L100.0100, L500.2500, L501.5200 ####[facility] [address] [facility] [place], [place], [phone]) Monocytes/100 WBC (Bld) 11.3 % High 0-10 [facility]; [facility]. Work Phone: Comment on above: Performed By: #### L 501.2450, L501.6710, L500.3400, L100.0100, L500.2500, L501.5200 ####[facility] [address] [facility] [place], [place], [phone]) Neutrophils/100 WBC (Bld) 66.9 % Normal 47-70 [facility].; [facility]. Work Phone: Comment on above: Performed By: #### L 501.2450, L501.6710, L500.3400, L100.0100, L500.2500, L501.5200 ####[facility] [address] [place], [place], [phone]) Nucleated RBC (Bld) [#/Vol] 0 10*3/uL Normal 0-5 [facility]; [facility]. Work Phone: Comment on above: Performed By: #### L 501.2450, L501.6710, L500.3400, L100.0100, L500.2500, L501.5200 ####[facility] [address] [place], [place], [phone]) Platelet mean volume (Bld) [Entitic vol] 10.9 fL Normal 6.2-12.0 [facility]; [facility], [facility]. Work Phone: Comment on above: Performed By: #### L 501.2450, L501.6710, L500.3400, L100.0100, L500.2500, L501.5200 ####[facility] [address] [facility] [place], [place], [phone]) Platelets (Bld) [#/Vol] 172 10*3/uL Normal 150-450 [facility].; [facility], [facility]. Work Phone: Comment on above: Performed By: #### L 501.2450, L501.6710, L500.3400, L100.0100, L500.2500, L501.5200 ####[facility] [address] [place], [place], [phone] RBC (Bld) [#/Vol] 5.14 10*6/uL Normal 4.6-6.2 [facility]; [facility] Work Phone: Comment on above: Performed By: #### L 501.2450, L501.6710, L500.3400, L100.0100, L500.2500, L501.5200 ####[facility] [address] [place], [address] RDW SD 55.9 fL High 35.1-43.9 [facility]; [facility] Work Phone: Comment on above: Performed By: #### L 501.2450, L501.6710, L500.3400, L100.0100, L500.2500, L501.5200 ####[facility] [address] [place], [address] WBC (Bld) [#/Vol] 5.6 10*3/uL Normal 4.4-11.0 [facility]; [facility] Work Phone: Comment on above: Performed By: #### L 501.2450, L501.6710, L500.3400, L100.0100, L500.2500, L501.5200 ####[facility] [address] [place], [address] CRPon 02-01-2025 C-REACTIVE PROT < 3.00 Normal 0.0-3.0 [facility]; [facility] Work Phone: Comment on above: Performed By: #### L 501.2450, L500.4050, L501.6710, L100.0100 #### [facility] Laboratory [address] [facility]. [place], [place], [phone] Lipaseon 02-01-2025 Lipase [Catalytic activity/Vol] 84 U/L High 13-75 [facility]; [facility] Work Phone: Comment on above: Result Comment: Chris slater note: LIPASE revised reference range effective 22. New Lipase methodology. Expected to produce lower values than the previous assay method. NEW Reference Range: 13 - 75 U/L Performed By: #### L 501.2450, L501.6710, L500.3400, L100.0100, L500.2500, L501.5200 ####[facility] [address] [place], [address] Liver Profileon 02-01-2025 Albumin [Mass/Vol] 4.4 g/dL Normal 3.5-5.0 [facility]; [facility] Work Phone: Comment on above: Order Comment: Infli ximab Quantitation with Reflex to Antibodies Performed By: #### L 501.2450, L501.6710, L500.3400, L100.0100, L500.2500, L501.5200 ####[facility] [address] [facility] [place], [place], [id number] ALK PHOS 59 U/L Normal 40-129 [facility]; [facility] Work Phone: Comment on above: Order Comment: Infli ximab Quantitation with Reflex to Antibodies Performed By: #### L 501.2450, L501.6710, L500.3400, L100.0100, L500.2500, L501.5200 ####[facility] [address] [place], [place], [address] ALT [Catalytic activity/Vol] 82 U/L High <=46 [facility], [employer] Work Phone: Comment on above: Order Comment: Infli ximab Quantitation with Reflex to Antibodies Performed By: #### L 501.2450, L501.6710, L500.3400, L100.0100, L500.2500, L501.5200 ####[facility] [address] [place], [address] AST [Catalytic activity/Vol] 46 U/L High <=37 [facility] Work Phone: Comment on above: Order Comment: Infli ximab Quantitation with Reflex to Antibodies Performed By: #### L 501.2450, L501.6710, L500.3400, L100.0100, L500.2500, L501.5200 ####[facility] [address] [place], [address] Bilirubin [Mass/Vol] 1.55 mg/dL High 0.00-1.30 [facility], [employer] Work Phone: Comment on above: Order Comment: Infli ximab Quantitation with Reflex to Antibodies Performed By: #### L 501.2450, L501.6710, L500.3400, L100.0100, L500.2500, L501.5200 ####[facility] [address] [place], [place], [phone] Bilirubin.direct [Mass/Vol] 0.51 mg/dL High 0.00-0.30 [facility], [employer] Work Phone: Comment on above: Order Comment: Infli ximab Quantitation with Reflex to Antibodies Performed By: #### L 501.2450, L501.6710, L500.3400, L100.0100, L500.2500, L501.5200 ####[facility] [address] [place], [address] Globulin (S) [Mass/Vol] 2.7 g/dL Normal 2.2-4.2 [facility]; [facility] Work Phone: Comment on above: Order Comment: Infli ximab Quantitation with Reflex to Antibodies Performed By: #### L 501.2450, L501.6710, L500.3400, L100.0100, L500.2500, L501.5200 ####[facility] [address] [place], [place], [phone] PROT 7.2 g/dL Normal 5.9-8.4 [facility]; [facility] Work Phone: Comment on above: Order Comment: Infli ximab Quantitation with Reflex to Antibodies Performed By: #### L 501.2450, L501.6710, L500.3400, L100.0100, L500.2500, L501.5200 ####[facility] [address] [place], [place], [phone] Magnesiumon 02-01-2025 Magnesium [Mass/Vol] 2.4 mg/dL High 1.5-2.2 [facility]; [facility] Work Phone: Comment on above: Performed By: #### L 501.2450, L500.4050, L501.6710, L100.0100 #### [facility] Laboratory [address] [place], [place], [phone] Panel Informationon 02-01 Absolute Lymph 0.94 {X10_3/uL} Normal 0.83 - 4.5 1 {X10_3/uL} [facility] Work Phone: Absolute Neut 3.7 {X10_3/uL} Normal 2.0 - 7.7 {X10_3/uL} [facility] Work Phone: BUN/CRE 12.6 {RATIO} Normal 10 - 20 {RATIO} [facility] Work Phone: Ferritinon 12-28-2024 Ferritin [Mass/Vol] 11 ng/mL Low 37-417 [facility] Comment on above: Performed By: #### L 503.6030, L503.6550 #### [facility] [address] [facility] [place], [place], [phone] Iron+Iron Binding Capacityon 12-28-2024 TIBC 472 ug/dL High 250-450 [facility] Comment on above: Performed By: #### L 503.6030, L503.6550 #### [facility] Laboratory [address] [place], [place], [id number] Absolute lymphocyte countOrd ered By: Josefina Sears on 12-26-2024 Lymphocytes Auto (Unsp spec) [#/Vol] 0.61 10*3/uL Low 0.83-4.51 [facility] Absolute neutrophil countOrd ered By: Josefina Sears on 12-26-2024 Neutrophils (Bld) [#/Vol] 5.2 10*3/uL 2.0-7.7 [facility] Anion gap in Serum or Plasma Ordered By: Josefina Sears on 12-26-2024 Anion gap [Moles/Vol] 12 mmol/L 5-15 [facility] Automated blood erythrocyte countOrdered By: Josefina Sears on 12-26-2024 RBC (Bld) [#/Vol] 4.85 10*6/uL Normal 4.6 - 6.2 {M/mm3} [facility] Automated blood hematocrit ( percentage)Ordered By: Josefina Sears on 12-26-2024 Hematocrit (Bld) [Volume fraction] 38.0 % Abnormal 40 - 54 [facility] Automated lymphocyte count a s percentage of total leukocytesOrdered By: Josefina Sears on 12-26-2024 Lymphocytes/100 WBC Auto (Unsp spec) 9.7 % Low 19- [facility] BUN/creatinine ratioOrdered By: Josefina Sears on 12-26-2024 Urea nitrogen/Creatinine [Mass ratio] 12.8 mg/mg 10- [facility] Basophil percentageOrdered B y: Josefina Sears on 12-26-2024 Basophils/100 WBC (Bld) 0.5 % Normal 0 - [facility] Bilirubin, totalOrdered By: Josefina Sears on 12-26-2024 Bilirubin [Mass/Vol] 1.02 mg/dL Normal 0.00 - 1.30 mg/dL [facility] CBC W/Diff, Automatedon 12-06 Absolute Lymph 0.61 X10 3/uL Low 0.83-4.51 [facility] Comment on above: Performed By: #### L 501.2450, L500.4050, L501.6710, L100.0100 #### [facility] Laboratory [address] [place], [address] Absolute Neut 5.2 X10 3/uL Normal 2.0-7.7 [facility] Comment on above: Performed By: #### L 501.2450, L500.4050, L501.6710, L100.0100 #### [facility] Laboratory [address] [place], [address] Basophils/100 WBC (Bld) 0.5 % Normal 0-1 [facility] Comment on above: Performed By: #### L 501.2450, L500.4050, L501.6710, L100.0100 #### [facility] Laboratory [address] [place], [address] Eosinophils/100 WBC (Bld) 1.0 % Normal 0-5 [facility] Comment on above: Performed By: #### L 501.2450, L500.4050, L501.6710, L100.0100 #### [facility] Laboratory [address] [place], [address] Erythrocyte distribution width (RBC) [Ratio] 16.4 % High 11.6-14.6 [facility] Comment on above: Performed By: #### L 501.2450, L500.4050, L501.6710, L100.0100 #### [facility] Laboratory [address] [place], [address] Hematocrit (Bld) [Volume fraction] 38.0 % Low 40-54 [facility] Comment on above: Performed By: #### L 501.2450, L500.4050, L501.6710, L100.0100 #### [facility] Laboratory [address] [place], [address] Hemoglobin (Bld) [Mass/Vol] 12.1 g/dL Low 13.0-16.5 [facility] Comment on above: Performed By: #### L 501.2450, L500.4050, L501.6710, L100.0100 #### [facility] Laboratory [address] [place], [address] IG% 0.500 Normal 0.0-0.9 [facility]; [facility] Work Phone: Comment on above: Result Comment: IG% - Immature Granulocytes (promyelocytes, myelocytes and metamyelocytes) > 1% indicates that a LEFT SHIFT is Present. Performed By: #### L 501.2450, L500.4050, L501.6710, L100.0100 #### [facility] Laboratory [address] [place], [address] Lymphocytes/100 WBC (Bld) 9.7 % Low 19-41 [facility]. Work Phone: Comment on above: Performed By: #### L 501.2450, L500.4050, L501.6710, L100.0100 #### [facility] Laboratory [address] [place], [address] MCH (RBC) [Entitic mass] 24.9 pg Low 27.0-32.0 [facility] Comment on above: Performed By: #### L 501.2450, L500.4050, L501.6710, L100.0100 #### [facility] Laboratory [address] [place], [address] MCHC (RBC) [Mass/Vol] 31.8 g/dL Low 32-36 [facility] Comment on above: Performed By: #### L 501.2450, L500.4050, L501.6710, L100.0100 #### [facility] Laboratory [address] [place], [address] MCV (RBC) [Entitic vol] 78.4 fL Low 80-94 [facility] Comment on above: Performed By: #### L 501.2450, L500.4050, L501.6710, L100.0100 #### [facility] Laboratory [address] [place], [address] Monocytes/100 WBC (Bld) 6.8 % Normal 0-10 [facility] Comment on above: Performed By: #### L 501.2450, L500.4050, L501.6710, L100.0100 #### [facility] Laboratory [address] [place], [address] Neutrophils/100 WBC (Bld) 81.5 % High 47-70 [facility] Comment on above: Performed By: #### L 501.2450, L500.4050, L501.6710, L100.0100 #### [facility] Laboratory [address] [place], [address] Nucleated RBC (Bld) [#/Vol] 0 10*3/uL Normal 0-5 [facility].; [facility] Work Phone: Comment on above: Performed By: #### L 501.2450, L500.4050, L501.6710, L100.0100 #### [facility] Laboratory [address] [place], [address] Platelet mean volume (Bld) [Entitic vol] 11.7 fL Normal 6.2-12.0 [facility] Comment on above: Performed By: #### L 501.2450, L500.4050, L501.6710, L100.0100 #### [facility] Laboratory [address] [place], [address] Platelets (Bld) [#/Vol] 185 10*3/uL Normal 150-450 [facility] Comment on above: Performed By: #### L 501.2450, L500.4050, L501.6710, L100.0100 #### [facility] Laboratory [address] [place], [address] RBC (Bld) [#/Vol] 4.85 10*6/uL Normal 4.6-6.2 [facility] Comment on above: Performed By: #### L 501.2450, L500.4050, L501.6710, L100.0100 #### [facility] Laboratory [address] [place], [address] RDW SD 46.6 fL High 35.1-43.9 [facility]. Work Phone: Comment on above: Performed By: #### L 501.2450, L500.4050, L501.6710, L100.0100 #### [facility] Laboratory [address] [place], [address] WBC (Bld) [#/Vol] 6.3 10*3/uL Normal 4.4-11.0 [facility] Comment on above: Performed By: #### L 501.2450, L500.4050, L501.6710, L100.0100 #### [facility] Laboratory [address] [place], [address] CRPon 12-26-2024 C-REACTIVE PROT < 3.00 Normal 0.0-3.0 [facility]; [facility] Work Phone: Comment on above: Performed By: #### L 501.2450, L500.4050, L501.6710, L100.0100 #### [facility] Laboratory [address] [place], [address] Carbon dioxide, total [Moles /volume] in Central venous bloodOrdered By: Josefina Sears on 12-26-2024 CO2 [Moles/Vol] 27.8 mmol/L Normal 21.0 - 32.0 mmol/L [facility] Chloride assayOrdered By: Leo Sears on 12-26-2024 Chloride [Moles/Vol] 101 mmol/L Normal 98 - 10 8 mmol/L [facility] Comprehensive Metabolic Prof ilon 12-26-2024 Albumin [Mass/Vol] 4.4 g/dL Normal 3.5-5.0 [facility] Comment on above: Performed By: #### L 501.2450, L500.4050, L501.6710, L100.0100 #### [facility] Laboratory [address] [place], [address] Albumin/Globulin [Mass ratio] 1.7 {ratio} Normal 0.9-2.4 [facility] Comment on above: Performed By: #### L 501.2450, L500.4050, L501.6710, L100.0100 #### [facility] Laboratory [address] [place], [address] ALK PHOS 59 U/L Normal 40-129 [facility]; [facility] Work Phone: Comment on above: Performed By: #### L 501.2450, L500.4050, L501.6710, L100.0100 #### [facility] Laboratory [address] [place], [address] ALT [Catalytic activity/Vol] 42 U/L Normal <=46 [facility] Comment on above: Performed By: #### L 501.2450, L500.4050, L501.6710, L100.0100 #### [facility] Laboratory [address] [place], [address] AST [Catalytic activity/Vol] 27 U/L Normal <=37 [facility] Comment on above: Performed By: #### L 501.2450, L500.4050, L501.6710, L100.0100 #### [facility] Laboratory [address] [place], [address] Bilirubin [Mass/Vol] 1.02 mg/dL Normal 0.00-1.30 [facility] Comment on above: Performed By: #### L 501.2450, L500.4050, L501.6710, L100.0100 #### [facility] Laboratory [address] [place], [address] BUN/CRE 12.8 RATIO Normal 10-20 [facility] Comment on above: Performed By: #### L 501.2450, L500.4050, L501.6710, L100.0100 #### [facility] Laboratory [address] [place], [address] Calcium [Mass/Vol] 9.8 mg/dL Normal 7.6-11.0 [facility] Comment on above: Performed By: #### L 501.2450, L500.4050, L501.6710, L100.0100 #### [facility] Laboratory [address] [place], [address] Chloride [Moles/Vol] 101 mmol/L Normal 98-108 [facility] Comment on above: Performed By: #### L 501.2450, L500.4050, L501.6710, L100.0100 #### [facility] Laboratory [address] [place], [address] CO2 [Moles/Vol] 27.8 mmol/L Normal 21.0-32.0 [facility] Comment on above: Performed By: #### L 501.2450, L500.4050, L501.6710, L100.0100 #### [facility] Laboratory [address] [place], [address] Creatinine [Mass/Vol] 0.91 mg/dL Normal 0.70-1.20 [facility] Comment on above: Performed By: #### L 501.2450, L500.4050, L501.6710, L100.0100 #### [facility] Laboratory [address] [place], [address] GAP 12 Normal 5-15 [facility]; [facility] Work Phone: Comment on above: Performed By: #### L 501.2450, L500.4050, L501.6710, L100.0100 #### [facility] Laboratory [address] [place], [address] GFR/1.73 sq M.predicted among non-blacks MDRD (S/P/Bld) [Vol rate/Area] 110 mL/min/{1.73_m2} Normal >60 [facility] Comment on above: Result Comment: mL/m in/1.73m2 CKD-EPI Creatinine Equation (2020) Performed By: #### L 501.2450, L500.4050, L501.6710, L100.0100 #### [facility] Laboratory [address] [place], [address] Globulin (S) [Mass/Vol] 2.6 g/dL Normal 2.2-4.2 [facility] Comment on above: Performed By: #### L 501.2450, L500.4050, L501.6710, L100.0100 #### [facility] Laboratory [address] [place], [address] Glucose [Mass/Vol] 95 mg/dL Normal 70-99 [facility] Comment on above: Performed By: #### L 501.2450, L500.4050, L501.6710, L100.0100 #### [facility] Laboratory [address] [place], [address] Potassium [Moles/Vol] 3.2 mmol/L Low 3.3-5.1 [facility]; [facility] Work Phone: Comment on above: Performed By: #### L 501.2450, L500.4050, L501.6710, L100.0100 #### [facility] Laboratory [address] [place], [address] Sodium [Moles/Vol] 140 mmol/L Normal 133-145 [facility] Comment on above: Performed By: #### L 501.2450, L500.4050, L501.6710, L100.0100 #### [facility] Laboratory [address] [place], [address] T PROT 7.0 g/dL Normal 5.9-8.4 [facility]; [facility]. Work Phone: Comment on above: Performed By: #### L 501.2450, L500.4050, L501.6710, L100.0100 #### [facility] Laboratory [address] [place], [place], [address] Urea nitrogen [Mass/Vol] 12 mg/dL Normal 4-19 [facility] Comment on above: Performed By: #### L 501.2450, L500.4050, L501.6710, L100.0100 #### [facility] Laboratory [address] [place], [address] Eosinophil percentageOrdered By: Joseifna Sears on 12-26-2024 Eosinophils/100 WBC (Bld) 1.0 % Normal 0 - 5 [facility] Erythrocyte distribution wid th ratioOrdered By: Josefina Sears on 12-26-2024 Erythrocyte distribution width (RBC) [Ratio] 16.4 % Abnormal 11.6 - 14.6 [facility] Erythrocyte distribution wid th standard deviationOrdered By: Josefina Sears on 12-26-2024 Erythrocyte distribution width (RBC) [Ratio] 46.6 fl High 35.1-43.9 [facility] Gastroenterology Visit Repor ton 12-26-2024 Gastroenterology Visit Report [facility] [address] 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 Note: [employer] speech recognition movie stunt performer software was used to create portions o (more content not included)... Normal [facility] Glomerular filtration rate ( GFR) estimation/1.73 sq m using serum, plasma, or whole bOrdered By: Josefina Sears on 12-26-2024 GFR/1.73 sq M.predicted among non-blacks MDRD (S/P/Bld) [Vol rate/Area] 110 mL/min/{1.73_m2} Normal [facility] Comment on above: mL/min/1.73m2 CKD-EP I Creatinine Equation (2020) Hemoglobin measurementOrdere d By: Josefina Sears on 12-26-2024 Hemoglobin (Bld) [Mass/Vol] 12.1 g/dL Abnormal 13.0 - 16.5 g/dL [facility] Immature granulocytes/100 WB C Auto (Bld)Ordered By: Josefina Sears on 12-26-2024 Immature granulocytes/100 WBC (Bld) 0.500 % 0.0-0.9 [facility] Comment on above: IG% - Immature Granu locytes (promyelocytes, myelocytes and metamyelocytes) > 1% indicates that a LEFT SHIFT is Present. Iron measurement (mass/mass) Ordered By: Josefina Sears on 12-26-2024 Iron (Unsp spec) [Mass/Mass] 32 ug/dL Low 65-175 [facility] Laboratory - Chemistry and C hemistry - challengeon 12-26-2024 Iron [Mass/Vol] 32 ug/dL Abnormal 65 - 175 ug/dL [facility].; [facility], [facility]. Work Phone: Laboratory - Chemistry and C hemistry - challengeOrdered By: Josefina Sears on 12-26-2024 AST [Catalytic activity/Vol] 27 U/L Normal [facility] Lipaseon 12-26-2024 Lipase [Catalytic activity/Vol] 83 U/L High 13-75 [facility] Comment on above: Result Comment: Chris se note: LIPASE revised reference range effective 22. New Lipase methodology. Expected to produce lower values than the previous assay method. NEW Reference Range: 13 - 75 U/L Performed By: #### L 501.2450, L500.4050, L501.6710, L100.0100 #### [facility] Laboratory [address] [place], [address] Lipase measurementOrdered By : Josefina Sears on 12-26-2024 Lipase [Catalytic activity/Vol] 83 U/L Abnormal 13 - 75 U/L [facility] Comment on above: Please note:LIPASE r evised reference range effective 22. New Lipase methodology. Expected to produce lower values than the previous assay method. NEW Reference Range: 13 - 75 U/L MCV (mean corpuscular volume ) determinationOrdered By: Josefina Sears on 12-26-2024 MCV (RBC) [Entitic vol] 78.4 fL Abnormal 80 - 94 fL [facility] Mean corpuscular hemoglobin (MCH) determinationOrdered By: Josefina Sears on 12-26-2024 MCH (RBC) [Entitic mass] 24.9 pg Abnormal 27.0 - 32.0 pg [facility] Mean corpuscular hemoglobin concentration (MCHC) determinationOrdered By: Josefina Sears on 12-26-2024 MCHC (RBC) [Mass/Vol] 31.8 g/dL Abnormal 32 - 36 g/dL [facility] Mean platelet volume determi nationOrdered By: Josefina Sears on 12-26-2024 Platelet mean volume (Bld) [Entitic vol] 11.7 fL Normal 6.2 - 12.0 fL [facility] Monocyte percentageOrdered B y: Josefina Sears on 12-26-2024 Monocytes/100 WBC (Bld) 6.8 % Normal 0 - 10 [facility] Neutrophil percentageOrdered By: Josefina Sears on 12-26-2024 Neutrophils/100 WBC (Bld) 81.5 % Abnormal 47 - 70 [facility] No Panel Informationon 12-26 Absolute Lymph 0.61 {X10_3/uL} Abnormal 0.83 - 4.5 1 {X10_3/uL} [facility] Work Phone: Absolute Neut 5.2 {X10_3/uL} Normal 2.0 - 7.7 {X10_3/uL} [facility].; [facility] System Work Phone: BUN/CRE 12.8 {RATIO} Normal 10 - 20 {RATIO} [facility] [employer] [facility]. Work Phone: IRON SATURATION 6.8 Abnormal 9 - 55 [facility]; [facility]. Work Phone: TIBC 472 ug/dL Abnormal 250 - 450 ug/dL [facility].; [facility]. Work Phone: UIBC 440 ug/dL Abnormal 228 - 428 ug/dL [facility].; [facility]. Work Phone: No Panel InformationOrdered By: Josefina Sears on 12-26-2024 Unsaturated Iron Binding Capacity 440 ug/dL High 228-428 [facility] Nucleated red blood cell per centageOrdered By: Josefina Sears on 12-26-2024 Nucleated RBC/100 WBC (Bld) [Ratio] 0 % 0-5 [facility] Platelet countOrdered By: Leo Sears on 12-26-2024 Platelets (Bld) [#/Vol] 185 10*3/uL Normal 150 - 450 K/mm3 [facility] Potassium measurement (mass/ volume)Ordered By: Josefina Sears on 12-26-2024 Potassium (Unsp spec) [Mass/Vol] 3.2 mmol/L Low 3.3-5.1 [facility] Serum creatinine measurement (mass/volume)Ordered By: Josefina Sears on 12-26-2024 Creatinine [Mass/Vol] 0.91 mg/dL Normal 0.70 - 1.20 mg/dL [facility] Serum globulin measurementOr dered By: Josefina Sears on 12-26-2024 Globulin (S) [Mass/Vol] 2.6 g/dL Normal 2.2 - 4.2 g/dL [facility] Serum glucose measurement (m ass/volume)Ordered By: Josefina Sears on 12-26-2024 Glucose [Mass/Vol] 95 mg/dL Normal 70 - 99 mg/dL [facility] Serum or plasma C reactive p rotein measurement (mass/volume)Ordered By: Josefina Sears on 12-26-2024 CRP [Mass/Vol] mg/L 0.0-3.0 [facility] Serum or plasma alanine garcia otransferase (ALT) measurementOrdered By: Josefina Sears on 12-26-2024 ALT [Catalytic activity/Vol] 42 U/L Normal [facility] Serum or plasma albumin jazmin urement (mass/volume)Ordered By: Josefina Sears on 12-26-2024 Albumin [Mass/Vol] 4.4 g/dL Normal 3.5 - 5.0 g/dL [facility] Serum or plasma albumin/glob ulin mass ratioOrdered By: Josefina Sears on 12-26-2024 Albumin/Globulin [Mass ratio] 1.7 {ratio} Normal 0.9 - 2.4 {RATIO} [facility] Serum or plasma alkaline dar sphatase measurementOrdered By: Josefina Sears on 12-26-2024 ALP [Catalytic activity/Vol] 59 U/L 40-129 [facility] Serum or plasma calcium jazmin urement (mass/volume)Ordered By: Josefina Sears on 12-26-2024 Calcium [Mass/Vol] 9.8 mg/dL Normal 7.6 - 11. 0 mg/dL [facility] Serum or plasma ferritin geovanna surement (mass/volume)Ordered By: Josefina Sears on 12-26-2024 Ferritin [Mass/Vol] 11 ng/mL Abnormal 37 - 417 ng/mL [facility] Serum or plasma iron saturat ion measurement (mass fraction)Ordered By: Josefina Sears on 12-26-2024 Iron saturation [Mass fraction] 6.8 % Low 9-55 [facility] Comment on above: Previous reported re sult: 6.7 %Edited by: DEEJAY on 12/28/24:1412 Serum or plasma urea nitroge n measurement (mass/volume)Ordered By: Josefina Sears on 12-26-2024 Urea nitrogen [Mass/Vol] 12 mg/dL Normal 4 - 19 mg/dL [facility] Sodium levelOrdered By: Chantel Sears on 12-26-2024 Sodium [Moles/Vol] 140 mmol/L Normal 133 - 145 mmol/L [facility] Total proteinOrdered By: Rebekah Sears on 12-26-2024 Protein [Mass/Vol] 7.0 g/dL 5.9-8.4 [facility] White blood cell (WBC) count Ordered By: Josefina Sears on 12-26-2024 WBC (Bld) [#/Vol] 6.3 10*3/uL Normal 4.4 - 11.0 K/mm3 [facility] CBC W Auto Differential pane l (Bld)on 11-18-2024 Basophils (Bld) [#/Vol] 0.03 10*3/uL Normal <0.11 [facility] Comment on above: Order Comment: Speci men Type: BLOOD SPECIMEN Ordering Facility: External Submitter Address: , , Performed By: #### 5 7021-8 #### [facility] CLIA [id number] [address] [place] [address] [place] Basophils/100 WBC (Bld) 0.6 % Normal [facility] Comment on above: Order Comment: Speci men Type: BLOOD SPECIMEN Ordering Facility: External Submitter Address: , , Performed By: #### 5 7021-8 #### [facility] CLIA [id number] [address] [place] [address] [place] Differential cell count method Nom (Bld) Auto Normal [facility] Comment on above: Order Comment: Speci men Type: BLOOD SPECIMEN Ordering Facility: External Submitter Address: , , Performed By: #### 5 7021-8 #### [facility] CLIA [id number] [address] [place] [address] [place] Eosinophils (Bld) [#/Vol] 0.11 10*3/uL Normal <0.46 [facility] Comment on above: Order Comment: Speci men Type: BLOOD SPECIMEN Ordering Facility: External Submitter Address: , , Performed By: #### 5 7021-8 #### [facility] CLIA [id number] [address] [place] [address] [place] Eosinophils/100 WBC (Bld) 2.3 % Normal [facility] Comment on above: Order Comment: Speci men Type: BLOOD SPECIMEN Ordering Facility: External Submitter Address: , , Performed By: #### 5 7021-8 #### [facility] CLIA [id number] [address] [place] [address] [place] Erythrocyte distribution width (RBC) [Ratio] 14.3 % Normal 11.5-15.0 [facility] Comment on above: Order Comment: Speci men Type: BLOOD SPECIMEN Ordering Facility: External Submitter Address: , , Performed By: #### 5 7021-8 #### [facility] CLIA [id number] [address] [place] [address] [place] Hematocrit (Bld) [Volume fraction] 39.4 % Normal 39.0-51.0 [facility] Comment on above: Order Comment: Speci men Type: BLOOD SPECIMEN Ordering Facility: External Submitter Address: , , Performed By: #### 5 7021-8 #### [facility] [place] [id number] [address] [place] [address] [place] Hemoglobin (Bld) [Mass/Vol] 12.3 g/dL Low 13.0-17.0 [facility] Comment on above: Order Comment: Speci men Type: BLOOD SPECIMEN Ordering Facility: External Submitter Address: , , Performed By: #### 5 7021-8 #### [facility] IA [id number] [address] [place] [address] [place] Immature granulocytes (Bld) [#/Vol] 10*3/uL Normal <0.10 [facility] Comment on above: Order Comment: Speci men Type: BLOOD SPECIMEN Ordering Facility: External Submitter Address: , , Performed By: #### 5 7021-8 #### [facility] CLIA [id number] [address] [place] [address] [place] Immature granulocytes/100 WBC (Bld) 0.2 % Normal [facility] Comment on above: Order Comment: Speci men Type: BLOOD SPECIMEN Ordering Facility: External Submitter Address: , , Performed By: #### 5 7021-8 #### [facility] CLIA [id number] [address] [place] [address] [place] Lymphocytes (Bld) [#/Vol] 0.71 10*3/uL Low 1.00-4.00 [facility] Comment on above: Order Comment: Speci men Type: BLOOD SPECIMEN Ordering Facility: External Submitter Address: , , Performed By: #### 5 7021-8 #### [facility] CLIA [id number] [address] [place] [address] Lymphocytes/100 WBC (Bld) 15.0 % Normal [facility] Comment on above: Order Comment: Speci men Type: BLOOD SPECIMEN Ordering Facility: External Submitter Address: , , Performed By: #### 5 7021-8 #### [facility] IA [id number] [address] [place] [address] STATES [facility] MCH (RBC) [Entitic mass] 25.4 pg Low 26.0-34.0 [facility] Comment on above: Order Comment: Speci men Type: BLOOD SPECIMEN Ordering Facility: External Submitter Address: , , Performed By: #### 5 7021-8 #### [facility] IA [id number] [address] [place] [address] [place] [facility] MCHC (RBC) [Mass/Vol] 31.2 g/dL Normal 30.5-36.0 [facility] Comment on above: Order Comment: Speci men Type: BLOOD SPECIMEN Ordering Facility: External Submitter Address: , , Performed By: #### 5 7021-8 #### [facility] [place] [id number] [address] [place] [address] [place] MCV (RBC) [Entitic vol] 81.2 fL Normal 80.0-100.0 [facility] Comment on above: Order Comment: Speci men Type: BLOOD SPECIMEN Ordering Facility: External Submitter Address: , , Performed By: #### 5 7021-8 #### [facility] IA [id number] [address] [place] [address] Monocytes (Bld) [#/Vol] 0.66 10*3/uL Normal <0.87 [facility] Comment on above: Order Comment: Speci men Type: BLOOD SPECIMEN Ordering Facility: External Submitter Address: , , Performed By: #### 5 7021-8 #### [facility] CLIA [id number] [address] [place] [address] [place] Monocytes/100 WBC (Bld) 13.9 % Normal [facility] Comment on above: Order Comment: Speci men Type: BLOOD SPECIMEN Ordering Facility: External Submitter Address: , , Performed By: #### 5 7021-8 #### [facility] CLIA [id number] [address] [place] [address] [place] Neutrophils (Bld) [#/Vol] 3.22 10*3/uL Normal 1.45-7.50 [facility] Comment on above: Order Comment: Speci men Type: BLOOD SPECIMEN Ordering Facility: External Submitter Address: , , Performed By: #### 5 7021-8 #### [facility] CLIA [id number] [address] [place] [address] [place] Neutrophils/100 WBC (Bld) 68.0 % Normal [facility] Comment on above: Order Comment: Speci men Type: BLOOD SPECIMEN Ordering Facility: External Submitter Address: , , Performed By: #### 5 7021-8 #### [facility] CLIA [id number] [address] [place] [address] [facility] [place] Nucleated RBC (Bld) [#/Vol] 10*3/uL Normal <0.01 [facility] Comment on above: Order Comment: Speci men Type: BLOOD SPECIMEN Ordering Facility: External Submitter Address: , , Performed By: #### 5 7021-8 #### [facility] CLIA [id number] [address] [place] [address] [place] Nucleated RBC/100 WBC (Bld) [Ratio] 0.0 /100 WBC Normal [facility] Comment on above: Order Comment: Speci men Type: BLOOD SPECIMEN Ordering Facility: External Submitter Address: , , Performed By: #### 5 7021-8 #### [facility] CLIA [id number] [address] [place] [address] [place] Platelet mean volume (Bld) [Entitic vol] 11.5 fL Normal 9.0-12.7 [facility] Comment on above: Order Comment: Speci men Type: BLOOD SPECIMEN Ordering Facility: External Submitter Address: , , Performed By: #### 5 7021-8 #### [facility] CLIA [id number] [address] [place] [address] [place] Platelets (Bld) [#/Vol] 211 10*3/uL Normal 150-400 [facility] Comment on above: Order Comment: Speci men Type: BLOOD SPECIMEN Ordering Facility: External Submitter Address: , , Performed By: #### 5 7021-8 #### [facility] CLIA [id number] [address] [place] [address] [place] RBC (Bld) [#/Vol] 4.85 10*6/uL Normal 4.20-6.00 [facility] Comment on above: Order Comment: Speci men Type: BLOOD SPECIMEN Ordering Facility: External Submitter Address: , , Performed By: #### 5 7021-8 #### [facility] CLIA [id number] [address] [place] [address] [place] WBC (Bld) [#/Vol] 4.74 10*3/uL Normal 3.70-11.00 [facility] Comment on above: Order Comment: Speci men Type: BLOOD SPECIMEN Ordering Facility: External Submitter Address: , , Performed By: #### 5 7021-8 #### [facility] CLIA [id number] [address] [place] [address] [place] CRP SerPl-mCncon 11-18-2024 CRP [Mass/Vol] mg/L Normal <0.9 [facility] Comment on above: Order Comment: Speci men Type: BLOOD SPECIMEN Ordering Facility: External Submitter Address: , , Performed By: #### 1 798-8, 56147-5, 3040-3 #### [facility] CLIA [id number] [address] [place] [address] [place] Calprotectin (Stl) [Mass/Mas s]on 11-18-2024 CALPROTECTIN, FECAL QUANTITATIVE 116 ug/g High <50 [facility] Comment on above: Order Comment: Speci men Type: BLOOD SPECIMEN Ordering Facility: External Submitter Address: , , Performed By: #### 1 798-8, 62571-9, 0-3 #### [facility] CLIA [id number] [address] [place] [address] [place] Comprehensive metabolic 2000 panelon 11-18-2024 Albumin [Mass/Vol] 4.6 g/dL Normal 3.9-4.9 [facility] Comment on above: Order Comment: Speci men Type: BLOOD SPECIMEN Ordering Facility: External Submitter Address: , , Performed By: #### 1 798-8, 67681-6, 3039-3 #### [facility] CLIA [id number] [address] [place] [address] [place] ALP [Catalytic activity/Vol] 63 U/L Normal 38-113 [facility] Comment on above: Order Comment: Speci men Type: BLOOD SPECIMEN Ordering Facility: External Submitter Address: , , Performed By: #### 1 798-8, 82855-8, 0-3 #### [facility] CLIA [id number] [address] [place] [address] [place] ALT [Catalytic activity/Vol] 53 U/L Normal 10-54 [facility] Comment on above: Order Comment: Speci men Type: BLOOD SPECIMEN Ordering Facility: External Submitter Address: , , Performed By: #### 1 798-8, 03409-8, 0-3 #### [facility] CLIA [id number] [address] [place] [address] [place] Anion gap [Moles/Vol] 15 mmol/L Normal 8-15 [facility] Comment on above: Order Comment: Speci men Type: BLOOD SPECIMEN Ordering Facility: External Submitter Address: , , Performed By: #### 1 798-8, 27777-5, 0-3 #### [facility] CLIA [id number] [address] [place] [address] [place] AST [Catalytic activity/Vol] 35 U/L Normal 14-40 [facility] Comment on above: Order Comment: Speci men Type: BLOOD SPECIMEN Ordering Facility: External Submitter Address: , , Performed By: #### 1 798-8, 42997-6, 3 #### [facility] CLIA [id number] [address] [place] [address] [place] Bilirubin [Mass/Vol] 1.7 mg/dL High 0.2-1.3 [facility] Comment on above: Order Comment: Speci men Type: BLOOD SPECIMEN Ordering Facility: External Submitter Address: , , Performed By: #### 1 798-8, , 3 #### [facility] CLIA [id number] [address] [place] [address] [place] Calcium [Mass/Vol] 9.5 mg/dL Normal 8.5-10.2 [facility] Comment on above: Order Comment: Speci men Type: BLOOD SPECIMEN Ordering Facility: External Submitter Address: , , Performed By: #### 1 798-8, 78427-8, 3 #### [facility] CLIA [id number] [address] [place] [address] [place] Chloride [Moles/Vol] 97 mmol/L Low 98-107 [facility] Comment on above: Order Comment: Speci men Type: BLOOD SPECIMEN Ordering Facility: External Submitter Address: , , Performed By: #### 1 798-8, , 3 #### [facility] CLIA [id number] [address] [place] [address] [place] CO2 [Moles/Vol] 27 mmol/L Normal 22-30 [facility] Comment on above: Order Comment: Speci men Type: BLOOD SPECIMEN Ordering Facility: External Submitter Address: , , Performed By: #### 1 798-8, 18009-6, 3 #### [facility] CLIA [id number] [address] [place] [address] [place] Creatinine [Mass/Vol] 1.03 mg/dL Normal 0.73-1.22 [facility] Comment on above: Order Comment: Klaus colindres Type: BLOOD SPECIMEN Ordering Facility: External Submitter Address: , , Performed By: #### 1 798-8, 15160-2, 3039-3 #### [facility] CLIA [id number] [address] [place] [address] [place] eGFRcr SerPlBld CKD-EPI 2020 95 mL/min/1.73m??? Normal >=60 [facility] Comment on above: Order Comment: Klaus [...] actual GFR. Performed By: #### 1 798-8, 62245-5, 3 #### [facility] CLIA [id number] [address] [place] [address] [place] Glucose [Mass/Vol] 92 mg/dL Normal 74-99 [facility] Comment on above: Order Comment: Klaus colindres Type: BLOOD SPECIMEN Ordering Facility: External Submitter Address: , , Result Comment: The [place] [employer] (ADA) provides guidance for cutoff [...] Standards of Medical Care in Diabetes 2016, [employer]. Diabetes Care. 2016.39(Suppl 1). Performed By: #### 1 798-8, 66886-5, 0-3 #### [facility] CLIA [id number] [address] [place] [address] [place] Potassium [Moles/Vol] 2.9 mmol/L Low 3.7-5.1 [facility] Comment on above: Order Comment: Speci men Type: BLOOD SPECIMEN Ordering Facility: External Submitter Address: , , Performed By: #### 1 798-8, 16189-3, 3039-3 #### [facility] CLIA [id number] [address] [place] [address] [place] Protein [Mass/Vol] 7.3 g/dL Normal 6.3-8.0 [facility] Comment on above: Order Comment: Speci men Type: BLOOD SPECIMEN Ordering Facility: External Submitter Address: , , Performed By: #### 1 798-8, 72607-7, 0-3 #### [facility] CLIA [id number] [address] [place] [address] [place] Sodium [Moles/Vol] 139 mmol/L Normal 136-144 [facility] Comment on above: Order Comment: Speci men Type: BLOOD SPECIMEN Ordering Facility: External Submitter Address: , , Performed By: #### 1 798-8, , 3039-3 #### [facility] CLIA [id number] [address] [place] [address] [place] Urea nitrogen [Mass/Vol] 13 mg/dL Normal 9-24 [facility] Comment on above: Order Comment: Speci men Type: BLOOD SPECIMEN Ordering Facility: External Submitter Address: , , Performed By: #### 1 798-8, 32891-7, 0-3 #### [facility] CLIA [id number] [address] [place] [address] [place] Basic metabolic 2000 panelon 11-07-2024 Anion gap [Moles/Vol] 11 mmol/L Normal 8-15 [facility] Comment on above: Order Comment: Speci men Type: BLOOD SPECIMEN Ordering Facility: External Submitter Address: , , Performed By: #### 1 798-8, 80379-3, 0-3 #### [facility] CLIA [id number] [address] [place] [address] [place] Calcium [Mass/Vol] 9.6 mg/dL Normal 8.5-10.2 [facility] Comment on above: Order Comment: Speci men Type: BLOOD SPECIMEN Ordering Facility: External Submitter Address: , , Performed By: #### 1 798-8, 30357-4, 0-3 #### [facility] CLIA [id number] [address] [place] [address] [place] Chloride [Moles/Vol] 100 mmol/L Normal 98-107 [facility] Comment on above: Order Comment: Speci men Type: BLOOD SPECIMEN Ordering Facility: External Submitter Address: , , Performed By: #### 1 798-8, 44667-0, 0-3 #### [facility] CLIA [id number] [address] [place] [address] [place] CO2 [Moles/Vol] 29 mmol/L Normal 22-30 [facility] Comment on above: Order Comment: Speci men Type: BLOOD SPECIMEN Ordering Facility: External Submitter Address: , , Performed By: #### 1 798-8, 34601-9, 0-3 #### [facility] CLIA [id number] [address] [place] [address] [place] Creatinine [Mass/Vol] 1.11 mg/dL Normal 0.73-1.22 [facility] Comment on above: Order Comment: Speci men Type: BLOOD SPECIMEN Ordering Facility: External Submitter Address: , , Performed By: #### 1 798-8, 92307-2, 0-3 #### [facility] CLIA [id number] [address] [place] [address] [place] eGFRcr SerPlBld CKD-EPI 2020 87 mL/min/1.73m??? Normal >=60 [facility] Comment on above: Order Comment: Speci [...] actual GFR. Performed By: #### 1 798-8, 48639-7, 0-3 #### [facility] CLIA [id number] [address] [place] [address] [place] Glucose [Mass/Vol] 85 mg/dL Normal 74-99 [facility] Comment on above: Order Comment: Klaus colindres Type: BLOOD SPECIMEN Ordering Facility: External Submitter Address: , , Result Comment: The [place] [employer] (ADA) provides guidance for cutoff [...] Standards of Medical Care in Diabetes 2016, [place] [employer]. Diabetes Care. 2016.39(Suppl 1). Performed By: #### 1 798-8, 77987-9, 3039-3 #### [facility] CLIA [id number] [address] [place] [address] [place] Potassium [Moles/Vol] 3.2 mmol/L Low 3.7-5.1 [facility] Comment on above: Order Comment: Klaus colindres Type: BLOOD SPECIMEN Ordering Facility: External Submitter Address: , , Performed By: #### 1 798-8, 21382-6, 3039-3 #### [facility] CLIA [id number] [address] [place] [address] [place] Sodium [Moles/Vol] 140 mmol/L Normal 136-144 [facility] Comment on above: Order Comment: Speci men Type: BLOOD SPECIMEN Ordering Facility: External Submitter Address: , , Performed By: #### 1 798-8, 17894-9, 3 #### [facility] CLIA [id number] [address] [place] [address] [place] Urea nitrogen [Mass/Vol] 14 mg/dL Normal 9-24 [facility] Comment on above: Order Comment: Speci men Type: BLOOD SPECIMEN Ordering Facility: External Submitter Address: , , Performed By: #### 1 798-8, 74068-9, 3 #### [facility] CLIA [id number] [address] [place] [address] [place] CBC W Auto Differential pane l (Bld)on 11-07-2024 Basophils (Bld) [#/Vol] 0.04 10*3/uL Normal <0.11 [facility] Comment on above: Order Comment: Speci men Type: BLOOD SPECIMEN Ordering Facility: External Submitter Address: , , Performed By: #### 1 798-8, 58468-6, 3 #### [facility] CLIA [id number] [address] [place] [address] [place] Basophils/100 WBC (Bld) 0.5 % Normal [facility] Comment on above: Order Comment: Speci men Type: BLOOD SPECIMEN Ordering Facility: External Submitter Address: , , Performed By: #### 1 798-8, , 3 #### [facility] CLIA [id number] [address] [place] [address] [place] Differential cell count method Nom (Bld) Auto Normal [facility] Comment on above: Order Comment: Speci men Type: BLOOD SPECIMEN Ordering Facility: External Submitter Address: , , Performed By: #### 1 798-8, 28504-2, 3 #### [facility] CLIA [id number] [address] [place] [address] [place] Eosinophils (Bld) [#/Vol] 0.07 10*3/uL Normal <0.46 [facility] Comment on above: Order Comment: Speci men Type: BLOOD SPECIMEN Ordering Facility: External Submitter Address: , , Performed By: #### 1 798-8, 35566-8, 3 #### [facility] CLIA [id number] [address] [place] [address] [place] Eosinophils/100 WBC (Bld) 0.8 % [facility] Comment on above: Order Comment: Speci men Type: BLOOD SPECIMEN Ordering Facility: External Submitter Address: , , Performed By: #### 1 798-8, 86071-2, 3 #### [facility] CLIA [id number] [address] [place] [address] [place] Erythrocyte distribution width (RBC) [Ratio] 13.9 % Normal 11.5-15.0 [facility] Comment on above: Order Comment: Speci men Type: BLOOD SPECIMEN Ordering Facility: External Submitter Address: , , Performed By: #### 1 798-8, , 3 #### [facility] CLIA [id number] [address] [place] [address] [place] Hematocrit (Bld) [Volume fraction] 37.8 % Low 39.0-51.0 [facility] Comment on above: Order Comment: Speci men Type: BLOOD SPECIMEN Ordering Facility: External Submitter Address: , , Performed By: #### 1 798-8, , 3 #### [facility] CLIA [id number] [address] [place] [address] [place] Hemoglobin (Bld) [Mass/Vol] 11.9 g/dL Low 13.0-17.0 [facility] Comment on above: Order Comment: Speci men Type: BLOOD SPECIMEN Ordering Facility: External Submitter Address: , , Performed By: #### 1 798-8, 76961-5, 3 #### [facility] CLIA [id number] [address] [place] [address] [place] Immature granulocytes (Bld) [#/Vol] 10*3/uL Normal <0.10 [facility] Comment on above: Order Comment: Speci men Type: BLOOD SPECIMEN Ordering Facility: External Submitter Address: , , Performed By: #### 1 798-8, 89229-2, 3039-3 #### [facility] CLIA [id number] [address] [place] [address] [place] Immature granulocytes/100 WBC (Bld) 0.2 % [facility] Comment on above: Order Comment: Speci men Type: BLOOD SPECIMEN Ordering Facility: External Submitter Address: , , Performed By: #### 1 798-8, 62945-5, 3 #### [facility] CLIA [id number] [address] [place] [address] [place] [facility] Lymphocytes (Bld) [#/Vol] 0.71 10*3/uL Low 1.00-4.00 [facility] Comment on above: Order Comment: Speci men Type: BLOOD SPECIMEN Ordering Facility: External Submitter Address: , , Performed By: #### 1 798-8, , 3 #### [facility] CLIA [id number] [address] [place] [address] Lymphocytes/100 WBC (Bld) 8.5 % [facility] Comment on above: Order Comment: Speci men Type: BLOOD SPECIMEN Ordering Facility: External Submitter Address: , , Performed By: #### 1 798-8, , 3 #### [facility] CLIA [id number] [address] [place] [address] [place] MCH (RBC) [Entitic mass] 25.6 pg Low 26.0-34.0 [facility] Comment on above: Order Comment: Speci men Type: BLOOD SPECIMEN Ordering Facility: External Submitter Address: , , Performed By: #### 1 798-8, 83089-9, 3039-3 #### [facility] CLIA [id number] [address] [place] [address] [place] MCHC (RBC) [Mass/Vol] 31.5 g/dL Normal 30.5-36.0 [facility] Comment on above: Order Comment: Speci men Type: BLOOD SPECIMEN Ordering Facility: External Submitter Address: , , Performed By: #### 1 798-8, 03490-9, 3039-3 #### [facility] CLIA [id number] [address] [place] [address] [place] MCV (RBC) [Entitic vol] 81.3 fL Normal 80.0-100.0 [facility] Comment on above: Order Comment: Speci men Type: BLOOD SPECIMEN Ordering Facility: External Submitter Address: , , Performed By: #### 1 798-8, , 3039-3 #### [facility] CLIA [id number] [address] [place] [address] [place] Monocytes (Bld) [#/Vol] 0.71 10*3/uL Normal <0.87 [facility] Comment on above: Order Comment: Speci men Type: BLOOD SPECIMEN Ordering Facility: External Submitter Address: , , Performed By: #### 1 798-8, 80581-4, 3 #### [facility] CLIA [id number] [address] [place] [address] [place] Monocytes/100 WBC (Bld) 8.5 % Normal [facility] Comment on above: Order Comment: Speci men Type: BLOOD SPECIMEN Ordering Facility: External Submitter Address: , , Performed By: #### 1 798-8, , 3 #### [facility] CLIA [id number] [address] [place] [address] [place] Neutrophils (Bld) [#/Vol] 6.78 10*3/uL Normal 1.45-7.50 [facility] Comment on above: Order Comment: Speci men Type: BLOOD SPECIMEN Ordering Facility: External Submitter Address: , , Performed By: #### 1 798-8, 50871-3, 0-3 #### [facility] CLIA [id number] [address] [place] [address] [place] Neutrophils/100 WBC (Bld) 81.5 % Normal [facility] Comment on above: Order Comment: Speci men Type: BLOOD SPECIMEN Ordering Facility: External Submitter Address: , , Performed By: #### 1 798-8, 35315-9, 3039-3 #### [facility] CLIA [id number] [address] [place] [address] [place] Nucleated RBC (Bld) [#/Vol] 10*3/uL Normal <0.01 [facility] Comment on above: Order Comment: Speci men Type: BLOOD SPECIMEN Ordering Facility: External Submitter Address: , , Performed By: #### 1 798-8, , 3 #### [facility] CLIA [id number] [address] [place] [address] [place] Nucleated RBC/100 WBC (Bld) [Ratio] 0.0 /100 WBC Normal [facility] Comment on above: Order Comment: Speci men Type: BLOOD SPECIMEN Ordering Facility: External Submitter Address: , , Performed By: #### 1 798-8, 84417-6, 3 #### [facility] CLIA [id number] [address] [place] [address] [place] Platelet mean volume (Bld) [Entitic vol] 11.5 fL Normal 9.0-12.7 [facility] Comment on above: Order Comment: Speci men Type: BLOOD SPECIMEN Ordering Facility: External Submitter Address: , , Performed By: #### 1 798-8, , 3 #### [facility] CLIA [id number] [address] [place] [address] [place] Platelets (Bld) [#/Vol] 213 10*3/uL Normal 150-400 [facility] Comment on above: Order Comment: Speci men Type: BLOOD SPECIMEN Ordering Facility: External Submitter Address: , , Performed By: #### 1 798-8, 27035-5, 3039-3 #### [facility] CLIA [id number] [address] [place] [address] [place] RBC (Bld) [#/Vol] 4.65 10*6/uL Normal 4.20-6.00 [facility] Comment on above: Order Comment: Speci men Type: BLOOD SPECIMEN Ordering Facility: External Submitter Address: , , Performed By: #### 1 798-8, 09713-2, 3039-3 #### [facility] CLIA [id number] [address] [place] [address] [place] WBC (Bld) [#/Vol] 8.33 10*3/uL Normal 3.70-11.00 [facility] Comment on above: Order Comment: Speci men Type: BLOOD SPECIMEN Ordering Facility: External Submitter Address: , , Performed By: #### 1 798-8, 66417-5, 3039-3 #### [facility] CLIA [id number] [address] [place] [address] [place] Hepatic function 2000 panelo n 11-07-2024 Albumin [Mass/Vol] 4.6 g/dL Normal 3.9-4.9 [facility] Comment on above: Order Comment: Speci men Type: BLOOD SPECIMEN Ordering Facility: External Submitter Address: , , Performed By: #### 1 798-8, 46541-4, 3039-3 #### [facility] CLIA [id number] [address] [place] [address] [place] ALP [Catalytic activity/Vol] 63 U/L Normal 38-113 [facility] Comment on above: Order Comment: Speci men Type: BLOOD SPECIMEN Ordering Facility: External Submitter Address: , , Performed By: #### 1 798-8, 06311-7, 0-3 #### [facility] CLIA [id number] [address] [place] [address] [place] ALT [Catalytic activity/Vol] 42 U/L Normal 10-54 [facility] Comment on above: Order Comment: Speci men Type: BLOOD SPECIMEN Ordering Facility: External Submitter Address: , , Performed By: #### 1 798-8, 98217-0, 0-3 #### [facility] CLIA [id number] [address] [place] [address] [place] AST [Catalytic activity/Vol] 29 U/L Normal 14-40 [facility] Comment on above: Order Comment: Speci men Type: BLOOD SPECIMEN Ordering Facility: External Submitter Address: , , Performed By: #### 1 798-8, 90154-5, 3039-3 #### [facility] CLIA [id number] [address] [place] [address] [place] Bilirubin [Mass/Vol] 1.3 mg/dL Normal 0.2-1.3 [facility] Comment on above: Order Comment: Speci men Type: BLOOD SPECIMEN Ordering Facility: External Submitter Address: , , Performed By: #### 1 798-8, 57824-5, 3 #### [facility] CLIA [id number] [address] [place] [address] [place] Bilirubin.conjugated [Mass/Vol] 0.3 mg/dL High <0.3 [facility] Comment on above: Order Comment: Speci men Type: BLOOD SPECIMEN Ordering Facility: External Submitter Address: , , Performed By: #### 1 798-8, 99573-5, 3 #### [facility] CLIA [id number] [address] [place] [address] [place] Protein [Mass/Vol] 7.4 g/dL Normal 6.3-8.0 [facility] Comment on above: Order Comment: Speci men Type: BLOOD SPECIMEN Ordering Facility: External Submitter Address: , , Performed By: #### 1 798-8, 07682-6, 3039-3 #### [facility] CLIA [id number] [address] [place] [address] [place] LDH SerPl-cCncon 11-07-2024 LDH [Catalytic activity/Vol] 228 U/L High 135-225 [facility] Comment on above: Order Comment: Speci men Type: BLOOD SPECIMEN Ordering Facility: External Submitter Address: , , Performed By: #### 1 798-8, 61455-9, 3039-3 #### [facility] CLIA [id number] [address] [place], [place] [address] [place] Lipase SerPl-cCncon 11-08-19 25 Lipase [Catalytic activity/Vol] 99 U/L High 16-61 [facility] Comment on above: Order Comment: Klaus colindres Type: BLOOD SPECIMEN Ordering Facility: External Submitter Address: , , Performed By: #### 1 798-8, 33330-6, 3040-3 #### [facility] CLIA [id number] [address] [place], [place] [address] [place] PT panel Coag (PPP)on 2024 INR Coag (PPP) [Relative time] 1.0 {INR} Normal 0.9-1.3 [facility] Comment on above: Order Comment: Klaus colindres Type: BLOOD SPECIMEN Ordering Facility: External Submitter Address: , , Result Comment: Rabia min K Antagonist (VKA) Therapeutic Range: INR 2 to 3 (Target INR of 2.5) Note: For patients treated with VKA drugs, such as warfarin, the [employer] 2012 Guideline recommends [...] to 3.5 (target INR of 3). Donny PIERCE, et al. Chest 2012, 141:7S-47S Dung RA, et al. JACC 2017, 70: 252-289 Performed By: #### 3 4528-0 #### [facility] CLIA [id number] [address] [place], [place] [address] [place] PT Coag (PPP) [Time] 10.8 s Normal 9.4-12.5 [facility] Comment on above: Order Comment: Speci men Type: BLOOD SPECIMEN Ordering Facility: External Submitter Address: , , Performed By: #### 3 4528-0 #### [facility] CLIA [id number] [address] [place] [address] Retics #on 11-07-2024 Reticulocytes (Bld) [#/Vol] 0.27052 10*3/uL Normal 0.018-0.100 [facility] Comment on above: Order Comment: Speci men Type: BLOOD SPECIMEN Ordering Facility: External Submitter Address: , , Performed By: #### 1 798-8, 29871-1, 3039-3 #### [facility] CLIA [id number] [address] [place] [address] [place] Reticulocytes (Bld) [#/Vol]o n 11-07-2024 Reticulocytes/100 RBC (Bld) 1.0 % Normal 0.4-2.0 [facility] Comment on above: Order Comment: Speci men Type: BLOOD SPECIMEN Ordering Facility: External Submitter Address: , , Performed By: #### 1 798-8, 56828-6, 3039-3 #### [facility] CLIA [id number] [address] [place] [address] CBC W Auto Differential pane l (Bld)on 10-28-2024 Basophils (Bld) [#/Vol] 10*3/uL Normal <0.11 [facility] Comment on above: Order Comment: Speci men Type: BLOOD SPECIMEN Ordering Facility: External Submitter Address: , , Performed By: #### 1 798-8, 19775-2, 0-3 #### [facility] CLIA [id number] [address] [place] [address] Basophils/100 WBC (Bld) 0.2 % Normal [facility] Comment on above: Order Comment: Speci men Type: BLOOD SPECIMEN Ordering Facility: External Submitter Address: , , Performed By: #### 1 798-8, 30925-5, 0-3 #### [facility] CLIA [id number] [address] [place] [address] [place] Differential cell count method Nom (Bld) Auto Normal [facility] Comment on above: Order Comment: Speci men Type: BLOOD SPECIMEN Ordering Facility: External Submitter Address: , , Performed By: #### 1 798-8, , 3 #### [facility] CLIA [id number] [address] [place] [address] [place] Eosinophils (Bld) [#/Vol] 0.11 10*3/uL Normal <0.46 [facility] Comment on above: Order Comment: Speci men Type: BLOOD SPECIMEN Ordering Facility: External Submitter Address: , , Performed By: #### 1 798-8, , 3 #### [facility] CLIA [id number] [address] [place] [address] [place] Eosinophils/100 WBC (Bld) 1.3 % Normal [facility] Comment on above: Order Comment: Speci men Type: BLOOD SPECIMEN Ordering Facility: External Submitter Address: , , Performed By: #### 1 798-8, , 3 #### [facility] CLIA [id number] [address] [place] [address] [place] Erythrocyte distribution width (RBC) [Ratio] 14.2 % Normal 11.5-15.0 [facility] Comment on above: Order Comment: Speci men Type: BLOOD SPECIMEN Ordering Facility: External Submitter Address: , , Performed By: #### 1 798-8, , 3 #### [facility] CLIA [id number] [address] [place] [address] [place] Hematocrit (Bld) [Volume fraction] 36.2 % Low 39.0-51.0 [facility] Comment on above: Order Comment: Speci men Type: BLOOD SPECIMEN Ordering Facility: External Submitter Address: , , Performed By: #### 1 798-8, 17213-5, 3039-3 #### [facility] CLIA [id number] [address] [place] [address] [place] Hemoglobin (Bld) [Mass/Vol] 11.5 g/dL Low 13.0-17.0 [facility] Comment on above: Order Comment: Speci men Type: BLOOD SPECIMEN Ordering Facility: External Submitter Address: , , Performed By: #### 1 798-8, 17026-6, 3039-3 #### [facility] CLIA [id number] [address] [place] [address] [place] Immature granulocytes (Bld) [#/Vol] 0.04 10*3/uL Normal <0.10 [facility] Comment on above: Order Comment: Speci men Type: BLOOD SPECIMEN Ordering Facility: External Submitter Address: , , Performed By: #### 1 798-8, 15343-6, 3 #### [facility] CLIA [id number] [address] [place] [address] [place] Immature granulocytes/100 WBC (Bld) 0.5 % Normal [facility] Comment on above: Order Comment: Speci men Type: BLOOD SPECIMEN Ordering Facility: External Submitter Address: , , Performed By: #### 1 798-8, 67605-5, 3039-3 #### [facility] CLIA [id number] [address] [place] [address] [place] Lymphocytes (Bld) [#/Vol] 0.84 10*3/uL Low 1.00-4.00 [facility] Comment on above: Order Comment: Speci men Type: BLOOD SPECIMEN Ordering Facility: External Submitter Address: , , Performed By: #### 1 798-8, 34009-9, 0-3 #### [facility] CLIA [id number] [address] [place] [address] [place] Lymphocytes/100 WBC (Bld) 9.6 % Normal [facility] Comment on above: Order Comment: Speci men Type: BLOOD SPECIMEN Ordering Facility: External Submitter Address: , , Performed By: #### 1 798-8, 14722-5, 0-3 #### [facility] CLIA [id number] [address] MCH (RBC) [Entitic mass] 25.8 pg Low 26.0-34.0 [facility] Comment on above: Order Comment: Speci men Type: BLOOD SPECIMEN Ordering Facility: External Submitter Address: , , Performed By: #### 1 798-8, 12563-7, 3 #### [facility] CLIA [id number] [address] [place] [address] [place] MCHC (RBC) [Mass/Vol] 31.8 g/dL Normal 30.5-36.0 [facility] Comment on above: Order Comment: Speci men Type: BLOOD SPECIMEN Ordering Facility: External Submitter Address: , , Performed By: #### 1 798-8, , 3 #### [facility] CLIA [id number] [address] [place] [address] [place] MCV (RBC) [Entitic vol] 81.3 fL Normal 80.0-100.0 [facility] Comment on above: Order Comment: Speci men Type: BLOOD SPECIMEN Ordering Facility: External Submitter Address: , , Performed By: #### 1 798-8, 11001-1, 3 #### [facility] CLIA [id number] [address] [place] [address] [place] Monocytes (Bld) [#/Vol] 1.09 10*3/uL High <0.87 [facility] Comment on above: Order Comment: Speci men Type: BLOOD SPECIMEN Ordering Facility: External Submitter Address: , , Performed By: #### 1 798-8, , 3 #### [facility] CLIA [id number] [address] [place] [address] [place] Monocytes/100 WBC (Bld) 12.5 % Normal [facility] Comment on above: Order Comment: Speci men Type: BLOOD SPECIMEN Ordering Facility: External Submitter Address: , , Performed By: #### 1 798-8, 46340-8, 3 #### [facility] CLIA [id number] [address] [place] [address] [place] Neutrophils (Bld) [#/Vol] 6.62 10*3/uL Normal 1.45-7.50 [facility] Comment on above: Order Comment: Speci men Type: BLOOD SPECIMEN Ordering Facility: External Submitter Address: , , Performed By: #### 1 798-8, 44431-7, 3039-3 #### [facility] CLIA [id number] [address] [place] [address] [place] Neutrophils/100 WBC (Bld) 75.9 % Normal [facility] Comment on above: Order Comment: Speci men Type: BLOOD SPECIMEN Ordering Facility: External Submitter Address: , , Performed By: #### 1 798-8, , 3 #### [facility] CLIA [id number] [address] [place] [address] [place] Nucleated RBC (Bld) [#/Vol] 10*3/uL Normal <0.01 [facility] Comment on above: Order Comment: Speci men Type: BLOOD SPECIMEN Ordering Facility: External Submitter Address: , , Performed By: #### 1 798-8, , 3 #### [facility] CLIA [id number] [address] [place] [address] [place] Nucleated RBC/100 WBC (Bld) [Ratio] 0.0 /100 WBC Normal [facility] Comment on above: Order Comment: Speci men Type: BLOOD SPECIMEN Ordering Facility: External Submitter Address: , , Performed By: #### 1 798-8, 85477-6, 3 #### [facility] CLIA [id number] [address] [place] [address] [place] Platelet mean volume (Bld) [Entitic vol] 11.6 fL Normal 9.0-12.7 [facility] Comment on above: Order Comment: Speci men Type: BLOOD SPECIMEN Ordering Facility: External Submitter Address: , , Performed By: #### 1 798-8, 06209-5, 3039-3 #### [facility] CLIA [id number] [address] [place] [address] [place] Platelets (Bld) [#/Vol] 234 10*3/uL Normal 150-400 [facility] Comment on above: Order Comment: Speci men Type: BLOOD SPECIMEN Ordering Facility: External Submitter Address: , , Performed By: #### 1 798-8, 35781-2, 3040-3 #### [facility] CLIA [id number] [address] [place] [address] [place] RBC (Bld) [#/Vol] 4.45 10*6/uL Normal 4.20-6.00 [facility] Comment on above: Order Comment: Speci men Type: BLOOD SPECIMEN Ordering Facility: External Submitter Address: , , Performed By: #### 1 798-8, 11291-6, 0-3 #### [facility] CLIA [id number] [address] [place] [address] [place] WBC (Bld) [#/Vol] 8.72 10*3/uL Normal 3.70-11.00 [facility] Comment on above: Order Comment: Speci men Type: BLOOD SPECIMEN Ordering Facility: External Submitter Address: , , Performed By: #### 1 798-8, 17556-5, 3040-3 #### [facility] CLIA [id number] [address] [place] [address] [place] Comprehensive metabolic 2000 panelon 10-28-2024 Albumin [Mass/Vol] 4.4 g/dL Normal 3.9-4.9 [facility] Comment on above: Order Comment: Speci men Type: BLOOD SPECIMEN Ordering Facility: External Submitter Address: , , Performed By: #### 1 798-8, 07224-6, 3040-3 #### [facility] CLIA [id number] [address] [place] [address] [place] ALP [Catalytic activity/Vol] 53 U/L Normal 38-113 [facility] Comment on above: Order Comment: Speci men Type: BLOOD SPECIMEN Ordering Facility: External Submitter Address: , , Performed By: #### 1 798-8, 89904-4, 3039-3 #### [facility] CLIA [id number] [address] [place] [address] [place] ALT [Catalytic activity/Vol] 66 U/L High 10-54 [facility] Comment on above: Order Comment: Speci men Type: BLOOD SPECIMEN Ordering Facility: External Submitter Address: , , Performed By: #### 1 798-8, 44067-0, 0-3 #### [facility] CLIA [id number] [address] [place] [address] [place] Anion gap [Moles/Vol] 19 mmol/L High 8-15 [facility] Comment on above: Order Comment: Speci men Type: BLOOD SPECIMEN Ordering Facility: External Submitter Address: , , Performed By: #### 1 798-8, 44559-2, 3039-3 #### [facility] CLIA [id number] [address] [place] [address] [place] AST [Catalytic activity/Vol] 62 U/L High 14-40 [facility] Comment on above: Order Comment: Speci men Type: BLOOD SPECIMEN Ordering Facility: External Submitter Address: , , Performed By: #### 1 798-8, , 3039-3 #### [facility] CLIA [id number] [address] [place] [address] [place] Bilirubin [Mass/Vol] 2.3 mg/dL High 0.2-1.3 [facility] Comment on above: Order Comment: Speci men Type: BLOOD SPECIMEN Ordering Facility: External Submitter Address: , , Performed By: #### 1 798-8, 55337-4, 0-3 #### [facility] CLIA [id number] [address] [place] [address] [place] Calcium [Mass/Vol] 9.5 mg/dL Normal 8.5-10.2 [facility] Comment on above: Order Comment: Speci men Type: BLOOD SPECIMEN Ordering Facility: External Submitter Address: , , Performed By: #### 1 798-8, 49400-8, 3 #### [facility] CLIA [id number] [address] [place] [address] [place] Chloride [Moles/Vol] 99 mmol/L Normal 98-107 [facility] Comment on above: Order Comment: Speci jens Type: BLOOD SPECIMEN Ordering Facility: External Submitter Address: , , Performed By: #### 1 798-8, 39218-2, 3 #### [facility] CLIA [id number] [address] [place] [address] [place] CO2 [Moles/Vol] 24 mmol/L Normal 22-30 [facility] Comment on above: Order Comment: Speci jens Type: BLOOD SPECIMEN Ordering Facility: External Submitter Address: , , Performed By: #### 1 798-8, , 3 #### [facility] CLIA [id number] [address] [place] [address] [place] Creatinine [Mass/Vol] 1.44 mg/dL High 0.73-1.22 [facility] Comment on above: Order Comment: Speci jens Type: BLOOD SPECIMEN Ordering Facility: External Submitter Address: , , Performed By: #### 1 798-8, , 3 #### [facility] CLIA [id number] [address] [place] [address] [place] eGFRcr SerPlBld CKD-EPI 2020 63 mL/min/1.73m??? Normal >=60 [facility] Comment on above: Order Comment: Speci [...] actual GFR. Performed By: #### 1 798-8, 72403-1, 3040-3 #### [facility] CLIA [id number] [address] [place] [address] [place] Glucose [Mass/Vol] 93 mg/dL Normal 74-99 [facility] Comment on above: Order Comment: Klaus colindres Type: BLOOD SPECIMEN Ordering Facility: External Submitter Address: , , Result Comment: The [employer] (ADA) provides guidance for cutoff [...] Standards of Medical Care in Diabetes 2016, [employer]. Diabetes Care. 2016.39(Suppl 1). Performed By: #### 1 798-8, 10560-9, 3 #### [facility] CLIA [id number] [address] [place] [address] [place] Potassium [Moles/Vol] 3.4 mmol/L Low 3.7-5.1 [facility] Comment on above: Order Comment: Klaus colindres Type: BLOOD SPECIMEN Ordering Facility: External Submitter Address: , , Performed By: #### 1 798-8, 28688-0, 3 #### [facility] CLIA [id number] [address] [place] [address] [place] Protein [Mass/Vol] 7.2 g/dL Normal 6.3-8.0 [facility] Comment on above: Order Comment: Klaus colindres Type: BLOOD SPECIMEN Ordering Facility: External Submitter Address: , , Performed By: #### 1 798-8, 78120-0, 3 #### [facility] CLIA [id number] [address] [place] [address] [place] Sodium [Moles/Vol] 142 mmol/L Normal 136-144 [facility] Comment on above: Order Comment: Speci men Type: BLOOD SPECIMEN Ordering Facility: External Submitter Address: , , Performed By: #### 1 798-8, 60084-4, 3040-3 #### [facility] CLIA [id number] [address] [place] [address] [place] Urea nitrogen [Mass/Vol] 26 mg/dL High 9-24 [facility] Comment on above: Order Comment: Speci men Type: BLOOD SPECIMEN Ordering Facility: External Submitter Address: , , Performed By: #### 1 798-8, 50966-1, 0-3 #### [facility] CLIA [id number] [address] [place] [address] [place] Lipase SerPl-cCncon 10-29-19 25 Lipase [Catalytic activity/Vol] 85 U/L High 16-61 [facility] Comment on above: Order Comment: Speci men Type: BLOOD SPECIMEN Ordering Facility: External Submitter Address: , , Performed By: #### 1 798-8, 24208-4, 0-3 #### [facility] CLIA [id number] [address] [place] [address] [place] CBC W Auto Differential pane l (Bld)on 10-11-2024 Basophils (Bld) [#/Vol] 0.04 10*3/uL Normal <0.11 [facility] Comment on above: Order Comment: Speci men Type: BLOOD SPECIMEN Ordering Facility: External Submitter Address: , , Performed By: #### 5 7021-8 #### [facility] CLIA [id number] [address] [place] [address] [place] Basophils/100 WBC (Bld) 0.5 % Normal [facility] Comment on above: Order Comment: Speci men Type: BLOOD SPECIMEN Ordering Facility: External Submitter Address: , , Performed By: #### 5 7021-8 #### [facility] CLIA [id number] [address] [place] [address] [place] Differential cell count method Nom (Bld) Auto Normal [facility] Comment on above: Order Comment: Speci men Type: BLOOD SPECIMEN Ordering Facility: External Submitter Address: , , Performed By: #### 5 7021-8 #### [facility] CLIA [id number] [address] [place] [address] [place] Eosinophils (Bld) [#/Vol] 0.07 10*3/uL Normal <0.46 [facility] Comment on above: Order Comment: Speci men Type: BLOOD SPECIMEN Ordering Facility: External Submitter Address: , , Performed By: #### 5 7021-8 #### [facility] CLIA [id number] [address] [place] [address] [place] Eosinophils/100 WBC (Bld) 0.9 % Normal [facility] Comment on above: Order Comment: Speci men Type: BLOOD SPECIMEN Ordering Facility: External Submitter Address: , , Performed By: #### 5 7021-8 #### [facility] CLIA [id number] [address] [place] [address] [place] Erythrocyte distribution width (RBC) [Ratio] 14.3 % Normal 11.5-15.0 [facility] Comment on above: Order Comment: Speci men Type: BLOOD SPECIMEN Ordering Facility: External Submitter Address: , , Performed By: #### 5 7021-8 #### [facility] CLIA [id number] [address] [place] [address] [place] Hematocrit (Bld) [Volume fraction] 39.7 % Normal 39.0-51.0 [facility] Comment on above: Order Comment: Speci men Type: BLOOD SPECIMEN Ordering Facility: External Submitter Address: , , Performed By: #### 5 7021-8 #### [facility] CLIA [id number] [address] [place] [address] [place] Hemoglobin (Bld) [Mass/Vol] 12.7 g/dL Low 13.0-17.0 [facility] Comment on above: Order Comment: Speci men Type: BLOOD SPECIMEN Ordering Facility: External Submitter Address: , , Performed By: #### 5 7021-8 #### [facility] CLIA [id number] [address] [place] [address] [place] Immature granulocytes (Bld) [#/Vol] 0.03 10*3/uL Normal <0.10 [facility] Comment on above: Order Comment: Speci men Type: BLOOD SPECIMEN Ordering Facility: External Submitter Address: , , Performed By: #### 5 7021-8 #### [facility] CLIA [id number] [address] [place] [address] [place] Immature granulocytes/100 WBC (Bld) 0.4 % Normal [facility] Comment on above: Order Comment: Speci men Type: BLOOD SPECIMEN Ordering Facility: External Submitter Address: , , Performed By: #### 5 7021-8 #### [facility] CLIA [id number] [address] [place] [address] [place] Lymphocytes (Bld) [#/Vol] 0.67 10*3/uL Low 1.00-4.00 [facility] Comment on above: Order Comment: Speci men Type: BLOOD SPECIMEN Ordering Facility: External Submitter Address: , , Performed By: #### 5 7021-8 #### [facility] CLIA [id number] [address] [place] [address] [place] Lymphocytes/100 WBC (Bld) 8.9 % Normal [facility] Comment on above: Order Comment: Speci men Type: BLOOD SPECIMEN Ordering Facility: External Submitter Address: , , Performed By: #### 5 7021-8 #### [facility] CLIA [id number] [address] [place] [address] [place] MCH (RBC) [Entitic mass] 26.2 pg Normal 26.0-34.0 [facility] Comment on above: Order Comment: Speci men Type: BLOOD SPECIMEN Ordering Facility: External Submitter Address: , , Performed By: #### 5 7021-8 #### [facility] CLIA [id number] [address] [place] [address] [place] MCHC (RBC) [Mass/Vol] 32.0 g/dL Normal 30.5-36.0 [facility] Comment on above: Order Comment: Speci men Type: BLOOD SPECIMEN Ordering Facility: External Submitter Address: , , Performed By: #### 5 7021-8 #### [facility] CLIA [id number] [address] [place] [address] MCV (RBC) [Entitic vol] 81.9 fL Normal 80.0-100.0 [facility] Comment on above: Order Comment: Speci men Type: BLOOD SPECIMEN Ordering Facility: External Submitter Address: , , Performed By: #### 5 7021-8 #### [facility] CLIA [id number] [address] [place] [address] [place] Monocytes (Bld) [#/Vol] 0.90 10*3/uL High <0.87 [facility] Comment on above: Order Comment: Speci men Type: BLOOD SPECIMEN Ordering Facility: External Submitter Address: , , Performed By: #### 5 7021-8 #### [facility] CLIA [id number] [address] [place] [address] [place] Monocytes/100 WBC (Bld) 12.0 % Normal [facility] Comment on above: Order Comment: Speci men Type: BLOOD SPECIMEN Ordering Facility: External Submitter Address: , , Performed By: #### 5 7021-8 #### [facility] IA [id number] [address] [place] [address] [place] Neutrophils (Bld) [#/Vol] 5.82 10*3/uL Normal 1.45-7.50 [facility] Comment on above: Order Comment: Speci men Type: BLOOD SPECIMEN Ordering Facility: External Submitter Address: , , Performed By: #### 5 7021-8 #### [facility] CLIA [id number] [address] [place] [address] Neutrophils/100 WBC (Bld) 77.3 % Normal [facility] Comment on above: Order Comment: Speci men Type: BLOOD SPECIMEN Ordering Facility: External Submitter Address: , , Performed By: #### 5 7021-8 #### [facility] CLIA [id number] [address] [place] [address] [place] Nucleated RBC (Bld) [#/Vol] 10*3/uL Normal <0.01 [facility] Comment on above: Order Comment: Speci men Type: BLOOD SPECIMEN Ordering Facility: External Submitter Address: , , Performed By: #### 5 7021-8 #### [facility] CLIA [id number] [address] [place] [address] [place] Nucleated RBC/100 WBC (Bld) [Ratio] 0.0 /100 WBC Normal [facility] Comment on above: Order Comment: Speci men Type: BLOOD SPECIMEN Ordering Facility: External Submitter Address: , , Performed By: #### 5 7021-8 #### [facility] CLIA [id number] [address] [place] [address] [place] Platelet mean volume (Bld) [Entitic vol] 10.5 fL Normal 9.0-12.7 [facility] Comment on above: Order Comment: Speci men Type: BLOOD SPECIMEN Ordering Facility: External Submitter Address: , , Performed By: #### 5 7021-8 #### [facility] CLIA [id number] [address] [place] [address] [place] Platelets (Bld) [#/Vol] 211 10*3/uL Normal 150-400 [facility] Comment on above: Order Comment: Speci men Type: BLOOD SPECIMEN Ordering Facility: External Submitter Address: , , Performed By: #### 5 7021-8 #### [facility] CLIA [id number] [address] [place] [address] [place] RBC (Bld) [#/Vol] 4.85 10*6/uL Normal 4.20-6.00 [facility] Comment on above: Order Comment: Speci men Type: BLOOD SPECIMEN Ordering Facility: External Submitter Address: , , Performed By: #### 5 7021-8 #### [facility] CLIA [id number] [address] [place] [address] [place] WBC (Bld) [#/Vol] 7.53 10*3/uL Normal 3.70-11.00 [facility] Comment on above: Order Comment: Speci men Type: BLOOD SPECIMEN Ordering Facility: External Submitter Address: , , Performed By: #### 5 7021-8 #### [facility] CLIA [id number] [address] [place] [address] [place] Comprehensive metabolic 2000 panelon 10-11-2024 Albumin [Mass/Vol] 4.6 g/dL Normal 3.9-4.9 [facility] Comment on above: Order Comment: Speci men Type: BLOOD SPECIMEN Ordering Facility: External Submitter Address: , , Performed By: #### 1 798-8, 70234-9, 3040-3 #### [facility] CLIA [id number] [address] [place] [address] [place] ALP [Catalytic activity/Vol] 66 U/L Normal 38-113 [facility] Comment on above: Order Comment: Speci men Type: BLOOD SPECIMEN Ordering Facility: External Submitter Address: , , Performed By: #### 1 798-8, 15073-8, 3040-3 #### [facility] CLIA [id number] [address] [place] [address] [place] ALT [Catalytic activity/Vol] 32 U/L Normal 10-54 [facility] Comment on above: Order Comment: Speci men Type: BLOOD SPECIMEN Ordering Facility: External Submitter Address: , , Performed By: #### 1 798-8, 25625-9, 3040-3 #### [facility] CLIA [id number] [address] [place] [address] [place] Anion gap [Moles/Vol] 14 mmol/L Normal 8-15 [facility] Comment on above: Order Comment: Speci men Type: BLOOD SPECIMEN Ordering Facility: External Submitter Address: , , Performed By: #### 1 798-8, 75295-0, 3040-3 #### [facility] CLIA [id number] [address] [place] [address] [place] AST [Catalytic activity/Vol] 27 U/L Normal 14-40 [facility] Comment on above: Order Comment: Speci men Type: BLOOD SPECIMEN Ordering Facility: External Submitter Address: , , Performed By: #### 1 798-8, 69514-7, 3039-3 #### [facility] CLIA [id number] [address] [place] [address] [place] Bilirubin [Mass/Vol] 1.5 mg/dL High 0.2-1.3 [facility] Comment on above: Order Comment: Speci men Type: BLOOD SPECIMEN Ordering Facility: External Submitter Address: , , Performed By: #### 1 798-8, 07947-7, 3 #### [facility] CLIA [id number] [address] [place] [address] [place] Calcium [Mass/Vol] 9.3 mg/dL Normal 8.5-10.2 [facility] Comment on above: Order Comment: Speci men Type: BLOOD SPECIMEN Ordering Facility: External Submitter Address: , , Performed By: #### 1 798-8, 66165-7, 3 #### [facility] CLIA [id number] [address] [place] [address] [place] Chloride [Moles/Vol] 102 mmol/L Normal 98-107 [facility] Comment on above: Order Comment: Speci men Type: BLOOD SPECIMEN Ordering Facility: External Submitter Address: , , Performed By: #### 1 798-8, , 3 #### [facility] CLIA [id number] [address] [place] [address] [place] CO2 [Moles/Vol] 26 mmol/L Normal 22-30 [facility] Comment on above: Order Comment: Speci men Type: BLOOD SPECIMEN Ordering Facility: External Submitter Address: , , Performed By: #### 1 798-8, 23414-6, 3039-3 #### [facility] CLIA [id number] [address] [place] [address] [place] Creatinine [Mass/Vol] 0.92 mg/dL Normal 0.73-1.22 [facility] Comment on above: Order Comment: Klaus colindres Type: BLOOD SPECIMEN Ordering Facility: External Submitter Address: , , Performed By: #### 1 798-8, 52983-8, 3040-3 #### [facility] CLIA [id number] [address] [place], [place] [address] [place] Creatinine and Glomerular filtration rate.predicted panel (S/P/Bld) 109 mL/min/1.73m??? Normal >=60 [facility] Comment on above: Order Comment: Klaus [...] actual GFR. Performed By: #### 1 798-8, 96196-6, 304-3 #### [facility] CLIA [id number] [address] [place] [address] [place] Glucose [Mass/Vol] 91 mg/dL Normal 74-99 [facility] Comment on above: Order Comment: Klaus colindres Type: BLOOD SPECIMEN Ordering Facility: External Submitter Address: , , Result Comment: The [place] [employer] (ADA) provides guidance for cutoff [...] Standards of Medical Care in Diabetes 2016, [place] [employer]. Diabetes Care. 2016.39(Suppl 1). Performed By: #### 1 798-8, 33168-9, 3040-3 #### [facility] CLIA [id number] [address] [place] [address] [place] Potassium [Moles/Vol] 3.3 mmol/L Low 3.7-5.1 [facility] Comment on above: Order Comment: Speci men Type: BLOOD SPECIMEN Ordering Facility: External Submitter Address: , , Performed By: #### 1 798-8, 55732-6, 3039-3 #### [facility] CLIA [id number] [address] [place] [address] [place] Protein [Mass/Vol] 7.0 g/dL Normal 6.3-8.0 [facility] Comment on above: Order Comment: Speci men Type: BLOOD SPECIMEN Ordering Facility: External Submitter Address: , , Performed By: #### 1 798-8, 77117-6, 3039-3 #### [facility] CLIA [id number] [address] [place] [address] [place] Sodium [Moles/Vol] 142 mmol/L Normal 136-144 [facility] Comment on above: Order Comment: Speci men Type: BLOOD SPECIMEN Ordering Facility: External Submitter Address: , , Performed By: #### 1 798-8, 35366-3, 3 #### [facility] CLIA [id number] [address] [place] [address] [place] Urea nitrogen [Mass/Vol] 15 mg/dL Normal 9-24 [facility] Comment on above: Order Comment: [facility] Type: BLOOD SPECIMEN Ordering Facility: External Submitter Address: , , Performed By: #### 1 798-8, 83094-5, 3039-3 #### [facility] CLIA [id number] [address] [place] [address] [place] Lipase SerPl-cCncon 10-12-19 25 Lipase [Catalytic activity/Vol] 101 U/L High 16-61 [facility] Comment on above: Order Comment: Speci [facility] Type: BLOOD SPECIMEN Ordering Facility: External Submitter Address: , , Performed By: #### 1 798-8, 94537-7, 3039-3 #### [facility] CLIA [id number] [address] [place] [address] [place] CBC W Auto Differential pane l (Bld)on 09-30-2024 Basophils (Bld) [#/Vol] 0.03 10*3/uL Normal <0.11 [facility] Comment on above: Order Comment: Speci men Type: BLOOD SPECIMEN Ordering Facility: External Submitter Address: , , Performed By: #### 1 798-8, 63364-2, 3 #### [facility] CLIA [id number] [address] [place] [address] [place] Basophils/100 WBC (Bld) 0.4 % Normal [facility] Comment on above: Order Comment: Speci men Type: BLOOD SPECIMEN Ordering Facility: External Submitter Address: , , Performed By: #### 1 798-8, 86597-0, 3 #### [facility] CLIA [id number] [address] [place] [address] [place] Differential cell count method Nom (Bld) Auto Normal [facility] Comment on above: Order Comment: Speci men Type: BLOOD SPECIMEN Ordering Facility: External Submitter Address: , , Performed By: #### 1 798-8, , 3 #### [facility] CLIA [id number] [address] [place] [address] [place] Eosinophils (Bld) [#/Vol] 0.04 10*3/uL Normal <0.46 [facility] Comment on above: Order Comment: Speci men Type: BLOOD SPECIMEN Ordering Facility: External Submitter Address: , , Performed By: #### 1 798-8, 57029-0, 3 #### [facility] CLIA [id number] [address] [place] [address] [place] Eosinophils/100 WBC (Bld) 0.5 % [facility] Comment on above: Order Comment: Speci men Type: BLOOD SPECIMEN Ordering Facility: External Submitter Address: , , Performed By: #### 1 798-8, 78477-3, 3040-3 #### [facility] CLIA [id number] [address] [place] [address] [place] Erythrocyte distribution width (RBC) [Ratio] 14.5 % Normal 11.5-15.0 [facility] Comment on above: Order Comment: Speci men Type: BLOOD SPECIMEN Ordering Facility: External Submitter Address: , , Performed By: #### 1 798-8, , 3 #### [facility] CLIA [id number] [address] [place] [address] [place] Hematocrit (Bld) [Volume fraction] 38.8 % Low 39.0-51.0 [facility] Comment on above: Order Comment: Speci men Type: BLOOD SPECIMEN Ordering Facility: External Submitter Address: , , Performed By: #### 1 798-8, , 3 #### [facility] CLIA [id number] [address] [place] [address] [place] Hemoglobin (Bld) [Mass/Vol] 12.3 g/dL Low 13.0-17.0 [facility] Comment on above: Order Comment: Speci men Type: BLOOD SPECIMEN Ordering Facility: External Submitter Address: , , Performed By: #### 1 798-8, , 3 #### [facility] CLIA [id number] [address] [place] [address] [place] Immature granulocytes (Bld) [#/Vol] 10*3/uL Normal <0.10 [facility] Comment on above: Order Comment: Speci men Type: BLOOD SPECIMEN Ordering Facility: External Submitter Address: , , Performed By: #### 1 798-8, , 3 #### [facility] CLIA [id number] [address] [place] [address] [place] Immature granulocytes/100 WBC (Bld) 0.3 % Normal [facility] Comment on above: Order Comment: Speci men Type: BLOOD SPECIMEN Ordering Facility: External Submitter Address: , , Performed By: #### 1 798-8, , 3 #### [facility] CLIA [id number] [address] [place] [address] Lymphocytes (Bld) [#/Vol] 0.51 10*3/uL Low 1.00-4.00 [facility] Comment on above: Order Comment: Speci men Type: BLOOD SPECIMEN Ordering Facility: External Submitter Address: , , Performed By: #### 1 798-8, 39728-3, 3 #### [facility] CLIA [id number] [address] [place] [address] Lymphocytes/100 WBC (Bld) 6.5 % Normal [facility] Comment on above: Order Comment: Speci men Type: BLOOD SPECIMEN Ordering Facility: External Submitter Address: , , Performed By: #### 1 798-8, , 3 #### [facility] CLIA [id number] [address] [place] [address] [place] [facility] MCH (RBC) [Entitic mass] 26.1 pg Normal 26.0-34.0 [facility] Comment on above: Order Comment: Speci men Type: BLOOD SPECIMEN Ordering Facility: External Submitter Address: , , Performed By: #### 1 798-8, , 3 #### [facility] CLIA [id number] [address] [place] [address] MCHC (RBC) [Mass/Vol] 31.7 g/dL Normal 30.5-36.0 [facility] Comment on above: Order Comment: Speci men Type: BLOOD SPECIMEN Ordering Facility: External Submitter Address: , , Performed By: #### 1 798-8, 32313-3, 3039-3 #### [facility] CLIA [id number] [address] [place] [address] MCV (RBC) [Entitic vol] 82.4 fL Normal 80.0-100.0 [facility] Comment on above: Order Comment: Speci men Type: BLOOD SPECIMEN Ordering Facility: External Submitter Address: , , Performed By: #### 1 798-8, 26390-3, 3039-3 #### [facility] CLIA [id number] [address] [place] [address] [place] Monocytes (Bld) [#/Vol] 0.68 10*3/uL Normal <0.87 [facility] Comment on above: Order Comment: Speci men Type: BLOOD SPECIMEN Ordering Facility: External Submitter Address: , , Performed By: #### 1 798-8, 33388-2, 3 #### [facility] CLIA [id number] [address] [place] [address] [place] Monocytes/100 WBC (Bld) 8.6 % Normal [facility] Comment on above: Order Comment: Speci men Type: BLOOD SPECIMEN Ordering Facility: External Submitter Address: , , Performed By: #### 1 798-8, 33404-0, 3 #### [facility] CLIA [id number] [address] [place] [address] [place] Neutrophils (Bld) [#/Vol] 6.59 10*3/uL Normal 1.45-7.50 [facility] Comment on above: Order Comment: Speci men Type: BLOOD SPECIMEN Ordering Facility: External Submitter Address: , , Performed By: #### 1 798-8, , 3 #### [facility] CLIA [id number] [address] [place] [address] [place] Neutrophils/100 WBC (Bld) 83.7 % Normal [facility] Comment on above: Order Comment: Speci men Type: BLOOD SPECIMEN Ordering Facility: External Submitter Address: , , Performed By: #### 1 798-8, 11554-4, 3 #### [facility] CLIA [id number] [address] [place] [address] [facility] Nucleated RBC (Bld) [#/Vol] 10*3/uL Normal <0.01 [facility] Comment on above: Order Comment: Speci men Type: BLOOD SPECIMEN Ordering Facility: External Submitter Address: , , Performed By: #### 1 798-8, 22895-1, 3039-3 #### [facility] CLIA [id number] [address] [place] [address] [place] Nucleated RBC/100 WBC (Bld) [Ratio] 0.0 /100 WBC Normal [facility] Comment on above: Order Comment: Speci men Type: BLOOD SPECIMEN Ordering Facility: External Submitter Address: , , Performed By: #### 1 798-8, 88939-1, 3 #### [facility] CLIA [id number] [address] [place] [address] [place] Platelet mean volume (Bld) [Entitic vol] 11.1 fL Normal 9.0-12.7 [facility] Comment on above: Order Comment: Speci men Type: BLOOD SPECIMEN Ordering Facility: External Submitter Address: , , Performed By: #### 1 798-8, 19838-4, 3 #### [facility] CLIA [id number] [address] [place] [address] [place] Platelets (Bld) [#/Vol] 207 10*3/uL Normal 150-400 [facility] Comment on above: Order Comment: Speci men Type: BLOOD SPECIMEN Ordering Facility: External Submitter Address: , , Performed By: #### 1 798-8, 76167-2, 3 #### [facility] CLIA [id number] [address] [place] [address] [place] RBC (Bld) [#/Vol] 4.71 10*6/uL Normal 4.20-6.00 [facility] Comment on above: Order Comment: Speci men Type: BLOOD SPECIMEN Ordering Facility: External Submitter Address: , , Performed By: #### 1 798-8, , 3 #### [facility] CLIA [id number] [address] [place] [address] [place] WBC (Bld) [#/Vol] 7.87 10*3/uL Normal 3.70-11.00 [facility] Comment on above: Order Comment: Speci men Type: BLOOD SPECIMEN Ordering Facility: External Submitter Address: , , Performed By: #### 1 798-8, 57676-5, 3040-3 #### [facility] CLIA [id number] [address] [place] [address] [place] Comprehensive metabolic 2000 panelon 09-30-2024 Albumin [Mass/Vol] 4.7 g/dL Normal 3.9-4.9 [facility] Comment on above: Order Comment: Speci men Type: BLOOD SPECIMEN Ordering Facility: External Submitter Address: , , Performed By: #### 2 4323-8, 92146-1 #### [facility] CLIA [id number] [address] [place] [address] [place] ALP [Catalytic activity/Vol] 61 U/L Normal 38-113 [facility] Comment on above: Order Comment: Speci men Type: BLOOD SPECIMEN Ordering Facility: External Submitter Address: , , Performed By: #### 2 4323-8, #### [facility] CLIA [id number] [address] [place] [address] [place] ALT [Catalytic activity/Vol] 29 U/L Normal 10-54 [facility] Comment on above: Order Comment: Speci men Type: BLOOD SPECIMEN Ordering Facility: External Submitter Address: , , Performed By: #### 2 4323-8, #### [facility] CLIA [id number] [address] [place] [address] [place] Anion gap [Moles/Vol] 15 mmol/L Normal 8-15 [facility] Comment on above: Order Comment: Speci men Type: BLOOD SPECIMEN Ordering Facility: External Submitter Address: , , Performed By: #### 2 4323-8, 64281-0 #### [facility] CLIA [id number] [address] [place] [address] [place] AST [Catalytic activity/Vol] 24 U/L Normal 14-40 [facility] Comment on above: Order Comment: Speci men Type: BLOOD SPECIMEN Ordering Facility: External Submitter Address: , , Performed By: #### 2 4322-11, #### [facility] CLIA [id number] [address] [place] [address] [place] Bilirubin [Mass/Vol] 1.7 mg/dL High 0.2-1.3 [facility] Comment on above: Order Comment: Speci men Type: BLOOD SPECIMEN Ordering Facility: External Submitter Address: , , Performed By: #### 2 4322-11, #### [facility] CLIA [id number] [address] [place] [address] [place] Calcium [Mass/Vol] 10.2 mg/dL Normal 8.5-10.2 [facility] Comment on above: Order Comment: Speci men Type: BLOOD SPECIMEN Ordering Facility: External Submitter Address: , , Performed By: #### 2 4322-11, #### [facility] CLIA [id number] [address] [place] [address] [place] Chloride [Moles/Vol] 100 mmol/L Normal 98-107 [facility] Comment on above: Order Comment: Speci men Type: BLOOD SPECIMEN Ordering Facility: External Submitter Address: , , Performed By: #### 2 4322-11, #### [facility] CLIA [id number] [address] [place] [address] [place] CO2 [Moles/Vol] 26 mmol/L Normal 22-30 [facility] Comment on above: Order Comment: Speci men Type: BLOOD SPECIMEN Ordering Facility: External Submitter Address: , , Performed By: #### 2 4322-11, #### [facility] CLIA [id number] [address] [place] [address] [place] Creatinine [Mass/Vol] 1.01 mg/dL Normal 0.73-1.22 [facility] Comment on above: Order Comment: Speci men Type: BLOOD SPECIMEN Ordering Facility: External Submitter Address: , , Performed By: #### 2 4322-11, #### [facility] CLIA [id number] [address] [place], [place] [address] [place] Creatinine and Glomerular filtration rate.predicted panel (S/P/Bld) 97 mL/min/1.73m??? Normal >=60 [facility] Comment on above: Order Comment: Klaus [...] reflect actual GFR. Performed By: #### 2 4323-8, 40654-7 #### [facility] IA [id number] [address] [place], [place] [address] [place] Glucose [Mass/Vol] 89 mg/dL Normal 74-99 [facility] Comment on above: Order Comment: Klaus colinders Type: BLOOD SPECIMEN Ordering Facility: External Submitter Address: , , Result Comment: The [place] [employer] (ADA) provides guidance for cutoff [...] Standards of Medical Care in Diabetes 2016, [employer]. Diabetes Care. 2016.39(Suppl 1). Performed By: #### 2 4323-8, 73448-1 #### [facility] CLIA [id number] [address] [place] [address] [place] Potassium [Moles/Vol] 3.6 mmol/L Low 3.7-5.1 [facility] Comment on above: Order Comment: Klaus colindres Type: BLOOD SPECIMEN Ordering Facility: External Submitter Address: , , Performed By: #### 2 4328, #### [facility] CLIA [id number] [address] [place] [address] [place] Protein [Mass/Vol] 7.3 g/dL Normal 6.3-8.0 [facility] Comment on above: Order Comment: Speci men Type: BLOOD SPECIMEN Ordering Facility: External Submitter Address: , , Performed By: #### 2 4322-11, #### [facility] CLIA [id number] [address] [place] [address] [place] Sodium [Moles/Vol] 141 mmol/L Normal 136-144 [facility] Comment on above: Order Comment: Speci men Type: BLOOD SPECIMEN Ordering Facility: External Submitter Address: , , Performed By: #### 2 4322-11, #### [facility] CLIA [id number] [address] [place] [address] [place] Urea nitrogen [Mass/Vol] 15 mg/dL Normal 9-24 [facility] Comment on above: Order Comment: Speci men Type: BLOOD SPECIMEN Ordering Facility: External Submitter Address: , , Performed By: #### 2 4322-11, #### [facility] CLIA [id number] [address] [place] [address] [place] Magnesium SerPl-mCncon 09-30 Magnesium [Mass/Vol] 2.1 mg/dL Normal 1.7-2.3 [facility] Comment on above: Order Comment: Speci men Type: BLOOD SPECIMEN Ordering Facility: External Submitter Address: , , Performed By: #### 2 4328, #### [facility] CLIA [id number] [address] [place] [address] [place] CBC W Auto Differential pane l (Bld)on 09-20-2024 Basophils (Bld) [#/Vol] 0.03 10*3/uL Normal <0.11 [facility] Comment on above: Order Comment: Speci men Type: BLOOD SPECIMEN Ordering Facility: External Submitter Address: , , Performed By: #### 1 798-8, 17562-9, 3039-3 #### [facility] CLIA [id number] [address] [place] [address] [place] Basophils/100 WBC (Bld) 0.5 % [facility] Comment on above: Order Comment: Speci men Type: BLOOD SPECIMEN Ordering Facility: External Submitter Address: , , Performed By: #### 1 798-8, 94936-4, 3039-3 #### [facility] CLIA [id number] [address] [place] [address] [place] Differential cell count method Nom (Bld) Auto [facility] Comment on above: Order Comment: Speci men Type: BLOOD SPECIMEN Ordering Facility: External Submitter Address: , , Performed By: #### 1 798-8, 06247-5, 3 #### [facility] CLIA [id number] [address] [place] [address] [place] Eosinophils (Bld) [#/Vol] 0.05 10*3/uL Normal <0.46 [facility] Comment on above: Order Comment: Speci men Type: BLOOD SPECIMEN Ordering Facility: External Submitter Address: , , Performed By: #### 1 798-8, , 3 #### [facility] CLIA [id number] [address] [place] [address] [place] Eosinophils/100 WBC (Bld) 0.8 % [facility] Comment on above: Order Comment: Speci men Type: BLOOD SPECIMEN Ordering Facility: External Submitter Address: , , Performed By: #### 1 798-8, 83686-7, 3039-3 #### [facility] CLIA [id number] [address] [place] [address] [place] Erythrocyte distribution width (RBC) [Ratio] 15.5 % High 11.5-15.0 [facility] Comment on above: Order Comment: Speci men Type: BLOOD SPECIMEN Ordering Facility: External Submitter Address: , , Performed By: #### 1 798-8, 71251-1, 3039-3 #### [facility] CLIA [id number] [address] [place] [address] [place] Hematocrit (Bld) [Volume fraction] 36.3 % Low 39.0-51.0 [facility] Comment on above: Order Comment: Speci men Type: BLOOD SPECIMEN Ordering Facility: External Submitter Address: , , Performed By: #### 1 798-8, 21814-5, 3039-3 #### [facility] CLIA [id number] [address] [place] [address] [place] Hemoglobin (Bld) [Mass/Vol] 11.9 g/dL Low 13.0-17.0 [facility] Comment on above: Order Comment: Speci men Type: BLOOD SPECIMEN Ordering Facility: External Submitter Address: , , Performed By: #### 1 798-8, , 3 #### [facility] CLIA [id number] [address] [place] [address] [place] Immature granulocytes (Bld) [#/Vol] 10*3/uL Normal <0.10 [facility] Comment on above: Order Comment: Speci men Type: BLOOD SPECIMEN Ordering Facility: External Submitter Address: , , Performed By: #### 1 798-8, , 3 #### [facility] CLIA [id number] [address] [place] [address] [place] Immature granulocytes/100 WBC (Bld) 0.3 % Normal [facility] Comment on above: Order Comment: Speci men Type: BLOOD SPECIMEN Ordering Facility: External Submitter Address: , , Performed By: #### 1 798-8, , 3039-3 #### [facility] CLIA [id number] [address] [place] [address] [place] Lymphocytes (Bld) [#/Vol] 0.60 10*3/uL Low 1.00-4.00 [facility] Comment on above: Order Comment: Speci men Type: BLOOD SPECIMEN Ordering Facility: External Submitter Address: , , Performed By: #### 1 798-8, 21627-1, 3 #### [facility] CLIA [id number] [address] [place] [address] [place] [facility] Lymphocytes/100 WBC (Bld) 9.1 % Normal [facility] Comment on above: Order Comment: Speci men Type: BLOOD SPECIMEN Ordering Facility: External Submitter Address: , , Performed By: #### 1 798-8, 22122-7, 3 #### [facility] CLIA [id number] [address] [place] [address] [place] MCH (RBC) [Entitic mass] 27.0 pg Normal 26.0-34.0 [facility] Comment on above: Order Comment: Speci men Type: BLOOD SPECIMEN Ordering Facility: External Submitter Address: , , Performed By: #### 1 798-8, , 3 #### [facility] CLIA [id number] [address] [place] [address] [place] MCHC (RBC) [Mass/Vol] 32.8 g/dL Normal 30.5-36.0 [facility] Comment on above: Order Comment: Speci men Type: BLOOD SPECIMEN Ordering Facility: External Submitter Address: , , Performed By: #### 1 798-8, , 3 #### [facility] CLIA [id number] [address] [place] [address] [place] MCV (RBC) [Entitic vol] 82.3 fL Normal 80.0-100.0 [facility] Comment on above: Order Comment: Speci men Type: BLOOD SPECIMEN Ordering Facility: External Submitter Address: , , Performed By: #### 1 798-8, , 3 #### [facility] CLIA [id number] [address] [place] [address] [place] Monocytes (Bld) [#/Vol] 0.49 10*3/uL Normal <0.87 [facility] Comment on above: Order Comment: Speci men Type: BLOOD SPECIMEN Ordering Facility: External Submitter Address: , , Performed By: #### 1 798-8, 34453-4, 3039-3 #### [facility] CLIA [id number] [address] [place] [address] [place] Monocytes/100 WBC (Bld) 7.4 % Normal [facility] Comment on above: Order Comment: Speci men Type: BLOOD SPECIMEN Ordering Facility: External Submitter Address: , , Performed By: #### 1 798-8, 50365-1, 3039-3 #### [facility] CLIA [id number] [address] [place] [address] [place] Neutrophils (Bld) [#/Vol] 5.42 10*3/uL Normal 1.45-7.50 [facility] Comment on above: Order Comment: Speci men Type: BLOOD SPECIMEN Ordering Facility: External Submitter Address: , , Performed By: #### 1 798-8, , 3 #### [facility] CLIA [id number] [address] [place] [address] [place] Neutrophils/100 WBC (Bld) 81.9 % Normal [facility] Comment on above: Order Comment: Speci men Type: BLOOD SPECIMEN Ordering Facility: External Submitter Address: , , Performed By: #### 1 798-8, , 3 #### [facility] CLIA [id number] [address] [place] [address] [place] Nucleated RBC (Bld) [#/Vol] 10*3/uL Normal <0.01 [facility] Comment on above: Order Comment: Speci men Type: BLOOD SPECIMEN Ordering Facility: External Submitter Address: , , Performed By: #### 1 798-8, 60781-9, 3 #### [facility] CLIA [id number] [address] [place] [address] [place] Nucleated RBC/100 WBC (Bld) [Ratio] 0.0 /100 WBC Normal [facility] Comment on above: Order Comment: Speci men Type: BLOOD SPECIMEN Ordering Facility: External Submitter Address: , , Performed By: #### 1 798-8, 01677-1, 3039-3 #### [facility] CLIA [id number] [address] [place] [address] [place] Platelet mean volume (Bld) [Entitic vol] 11.2 fL Normal 9.0-12.7 [facility] Comment on above: Order Comment: Speci men Type: BLOOD SPECIMEN Ordering Facility: External Submitter Address: , , Performed By: #### 1 798-8, 83781-8, 3039-3 #### [facility] CLIA [id number] [address] [place] [address] [place] Platelets (Bld) [#/Vol] 200 10*3/uL Normal 150-400 [facility] Comment on above: Order Comment: Speci men Type: BLOOD SPECIMEN Ordering Facility: External Submitter Address: , , Performed By: #### 1 798-8, 20582-7, 3039-3 #### [facility] CLIA [id number] [address] [place] [address] [place] RBC (Bld) [#/Vol] 4.41 10*6/uL Normal 4.20-6.00 [facility] Comment on above: Order Comment: Speci men Type: BLOOD SPECIMEN Ordering Facility: External Submitter Address: , , Performed By: #### 1 798-8, 10532-3, 3039-3 #### [facility] CLIA [id number] [address] [place] [address] [place] WBC (Bld) [#/Vol] 6.61 10*3/uL Normal 3.70-11.00 [facility] Comment on above: Order Comment: Speci men Type: BLOOD SPECIMEN Ordering Facility: External Submitter Address: , , Performed By: #### 1 798-8, 95002-6, 0-3 #### [facility] CLIA [id number] [address] [place] [address] [facility] Comprehensive metabolic 2000 panelon 09-20-2024 Albumin [Mass/Vol] 4.4 g/dL Normal 3.9-4.9 [facility] Comment on above: Order Comment: Speci men Type: BLOOD SPECIMEN Ordering Facility: External Submitter Address: , , Performed By: #### 1 798-8, 40270-0, 3039-3 #### [facility] CLIA [id number] [address] [place] [address] [place] ALP [Catalytic activity/Vol] 63 U/L Normal 38-113 [facility] Comment on above: Order Comment: Speci men Type: BLOOD SPECIMEN Ordering Facility: External Submitter Address: , , Performed By: #### 1 798-8, 49048-0, 3 #### [facility] CLIA [id number] [address] [place] [address] [place] ALT [Catalytic activity/Vol] 39 U/L Normal 10-54 [facility] Comment on above: Order Comment: Speci men Type: BLOOD SPECIMEN Ordering Facility: External Submitter Address: , , Performed By: #### 1 798-8, 37675-8, 3 #### [facility] CLIA [id number] [address] [place] [address] [place] Anion gap [Moles/Vol] 12 mmol/L Normal 8-15 [facility] Comment on above: Order Comment: Speci men Type: BLOOD SPECIMEN Ordering Facility: External Submitter Address: , , Performed By: #### 1 798-8, 96244-1, 3 #### [facility] CLIA [id number] [address] [place] [address] [place] AST [Catalytic activity/Vol] 25 U/L Normal 14-40 [facility] Comment on above: Order Comment: Speci men Type: BLOOD SPECIMEN Ordering Facility: External Submitter Address: , , Performed By: #### 1 798-8, 35541-9, 3039-3 #### [facility] CLIA [id number] [address] [place] [address] [place] Bilirubin [Mass/Vol] 1.0 mg/dL Normal 0.2-1.3 [facility] Comment on above: Order Comment: Speci men Type: BLOOD SPECIMEN Ordering Facility: External Submitter Address: , , Performed By: #### 1 798-8, 21652-6, 3 #### [facility] CLIA [id number] [address] [place] [address] [place] Calcium [Mass/Vol] 9.0 mg/dL Normal 8.5-10.2 [facility] Comment on above: Order Comment: Speci men Type: BLOOD SPECIMEN Ordering Facility: External Submitter Address: , , Performed By: #### 1 798-8, 43227-8, 3 #### [facility] CLIA [id number] [address] [place] [address] [place] Chloride [Moles/Vol] 103 mmol/L Normal 98-107 [facility] Comment on above: Order Comment: Speci men Type: BLOOD SPECIMEN Ordering Facility: External Submitter Address: , , Performed By: #### 1 798-8, , 3 #### [facility] CLIA [id number] [address] [place] [address] [place] CO2 [Moles/Vol] 26 mmol/L Normal 22-30 [facility] Comment on above: Order Comment: Speci men Type: BLOOD SPECIMEN Ordering Facility: External Submitter Address: , , Performed By: #### 1 798-8, , 3 #### [facility] CLIA [id number] [address] [place] [address] [place] Creatinine [Mass/Vol] 0.96 mg/dL Normal 0.73-1.22 [facility] Comment on above: Order Comment: Speci men Type: BLOOD SPECIMEN Ordering Facility: External Submitter Address: , , Performed By: #### 1 798-8, 06860-5, 3039-3 #### [facility] CLIA [id number] [address] [place] [address] [place] Creatinine and Glomerular filtration rate.predicted panel (S/P/Bld) 103 mL/min/1.73m??? Normal >=60 [facility] Comment on above: Order Comment: Klaus [...] actual GFR. Performed By: #### 1 798-8, 64571-2, 3040-3 #### [facility] CLIA [id number] [address] [place] [address] [place] Glucose [Mass/Vol] 100 mg/dL High 74-99 [facility] Comment on above: Order Comment: Klaus colindres Type: BLOOD SPECIMEN Ordering Facility: External Submitter Address: , , Result Comment: The [place] [employer] (ADA) provides guidance for cutoff [...] Standards of Medical Care in Diabetes 2016, [place] [employer]. Diabetes Care. 2016.39(Suppl 1). Performed By: #### 1 798-8, 31258-7, 3040-3 #### [facility] CLIA [id number] [address] [place] [address] [place] Potassium [Moles/Vol] 2.7 mmol/L Low 3.7-5.1 [facility] Comment on above: Order Comment: Klaus colindres Type: BLOOD SPECIMEN Ordering Facility: External Submitter Address: , , Performed By: #### 1 798-8, 24825-9, 3040-3 #### [facility] CLIA [id number] [address] [place] [address] [place] Protein [Mass/Vol] 6.7 g/dL Normal 6.3-8.0 [facility] Comment on above: Order Comment: Klaus colindres Type: BLOOD SPECIMEN Ordering Facility: External Submitter Address: , , Performed By: #### 1 798-8, 69888-2, 3039-3 #### [facility] CLIA [id number] [address] [place] [address] [place] Sodium [Moles/Vol] 141 mmol/L Normal 136-144 [facility] Comment on above: Order Comment: Klaus colindres Type: BLOOD SPECIMEN Ordering Facility: External Submitter Address: , , Performed By: #### 1 798-8, 65627-9, 3 #### [facility] CLIA [id number] [address] [place] [address] [place] Urea nitrogen [Mass/Vol] 11 mg/dL Normal 9-24 [facility] Comment on above: Order Comment: Klaus colindres Type: BLOOD SPECIMEN Ordering Facility: External Submitter Address: , , Performed By: #### 1 798-8, 85921-4, 3 #### [facility] CLIA [id number] [address] [place] [address] [place] Lipase SerPl-cCncon 09-21-19 25 Lipase [Catalytic activity/Vol] 84 U/L High 16-61 [facility] Comment on above: Order Comment: Klaus colindres Type: BLOOD SPECIMEN Ordering Facility: External Submitter Address: , , Performed By: #### 1 798-8, 13303-6, 0-3 #### [facility] CLIA [id number] [address] [place] [address] [place] CBC W Auto Differential pane l (Bld)on 09-13-2024 Basophils (Bld) [#/Vol] 0.03 10*3/uL Normal <0.11 [facility] Comment on above: Order Comment: Klaus colindres Type: BLOOD SPECIMEN Ordering Facility: External Submitter Address: , , Performed By: #### 1 798-8, 39204-0, 0-3 #### [facility] CLIA [id number] [address] [place] [address] [place] Basophils/100 WBC (Bld) 0.4 % [facility] Comment on above: Order Comment: Speci men Type: BLOOD SPECIMEN Ordering Facility: External Submitter Address: , , Performed By: #### 1 798-8, 84658-3, 0-3 #### [facility] CLIA [id number] [address] [place] [address] [place] Differential cell count method Nom (Bld) Auto [facility] Comment on above: Order Comment: Speci men Type: BLOOD SPECIMEN Ordering Facility: External Submitter Address: , , Performed By: #### 1 798-8, 61226-5, 3039-3 #### [facility] CLIA [id number] [address] [place] [address] [place] Eosinophils (Bld) [#/Vol] 0.07 10*3/uL Normal <0.46 [facility] Comment on above: Order Comment: Speci men Type: BLOOD SPECIMEN Ordering Facility: External Submitter Address: , , Performed By: #### 1 798-8, , 3039-3 #### [facility] CLIA [id number] [address] [place] [address] [place] Eosinophils/100 WBC (Bld) 0.9 % [facility] Comment on above: Order Comment: Speci men Type: BLOOD SPECIMEN Ordering Facility: External Submitter Address: , , Performed By: #### 1 798-8, 23901-2, 0-3 #### [facility] CLIA [id number] [address] [place] [address] [place] Erythrocyte distribution width (RBC) [Ratio] 16.1 % High 11.5-15.0 [facility] Comment on above: Order Comment: Speci men Type: BLOOD SPECIMEN Ordering Facility: External Submitter Address: , , Performed By: #### 1 798-8, 85210-5, 3039-3 #### [facility] CLIA [id number] [address] [place] [address] [place] Hematocrit (Bld) [Volume fraction] 39.4 % Normal 39.0-51.0 [facility] Comment on above: Order Comment: Speci men Type: BLOOD SPECIMEN Ordering Facility: External Submitter Address: , , Performed By: #### 1 798-8, 04174-4, 3039-3 #### [facility] CLIA [id number] [address] [place] [address] [place] Hemoglobin (Bld) [Mass/Vol] 12.8 g/dL Low 13.0-17.0 [facility] Comment on above: Order Comment: Speci men Type: BLOOD SPECIMEN Ordering Facility: External Submitter Address: , , Performed By: #### 1 798-8, 78162-7, 3 #### [facility] CLIA [id number] [address] [place] [address] [place] Immature granulocytes (Bld) [#/Vol] 10*3/uL Normal <0.10 [facility] Comment on above: Order Comment: Speci men Type: BLOOD SPECIMEN Ordering Facility: External Submitter Address: , , Performed By: #### 1 798-8, 76894-7, 3 #### [facility] CLIA [id number] [address] [place] [address] [place] Immature granulocytes/100 WBC (Bld) 0.3 % Normal [facility] Comment on above: Order Comment: Speci men Type: BLOOD SPECIMEN Ordering Facility: External Submitter Address: , , Performed By: #### 1 798-8, 51719-2, 3039-3 #### [facility] CLIA [id number] [address] [place] [address] [place] [facility] [place] Lymphocytes (Bld) [#/Vol] 0.83 10*3/uL Low 1.00-4.00 [facility] Comment on above: Order Comment: Speci men Type: BLOOD SPECIMEN Ordering Facility: External Submitter Address: , , Performed By: #### 1 798-8, 59760-1, 3 #### [facility] CLIA [id number] [address] [place] [address] [place] [facility] Lymphocytes/100 WBC (Bld) 10.8 % Normal [facility] Comment on above: Order Comment: Speci men Type: BLOOD SPECIMEN Ordering Facility: External Submitter Address: , , Performed By: #### 1 798-8, , 3 #### [facility] CLIA [id number] [address] [place] [address] [place] MCH (RBC) [Entitic mass] 26.8 pg Normal 26.0-34.0 [facility] Comment on above: Order Comment: Speci men Type: BLOOD SPECIMEN Ordering Facility: External Submitter Address: , , Performed By: #### 1 798-8, , 3 #### [facility] CLIA [id number] [address] [place] [address] [place] MCHC (RBC) [Mass/Vol] 32.5 g/dL Normal 30.5-36.0 [facility] Comment on above: Order Comment: Speci men Type: BLOOD SPECIMEN Ordering Facility: External Submitter Address: , , Performed By: #### 1 798-8, , 3 #### [facility] CLIA [id number] [address] [place] [address] [place] MCV (RBC) [Entitic vol] 82.6 fL Normal 80.0-100.0 [facility] Comment on above: Order Comment: Speci men Type: BLOOD SPECIMEN Ordering Facility: External Submitter Address: , , Performed By: #### 1 798-8, 98481-7, 3 #### [facility] CLIA [id number] [address] [place] [address] Monocytes (Bld) [#/Vol] 0.68 10*3/uL Normal <0.87 [facility] Comment on above: Order Comment: Speci men Type: BLOOD SPECIMEN Ordering Facility: External Submitter Address: , , Performed By: #### 1 798-8, 24773-6, 3039-3 #### [facility] CLIA [id number] [address] [place] [address] [place] Monocytes/100 WBC (Bld) 8.8 % Normal [facility] Comment on above: Order Comment: Speci men Type: BLOOD SPECIMEN Ordering Facility: External Submitter Address: , , Performed By: #### 1 798-8, 65526-1, 3039-3 #### [facility] CLIA [id number] [address] [place] [address] [place] Neutrophils (Bld) [#/Vol] 6.07 10*3/uL Normal 1.45-7.50 [facility] Comment on above: Order Comment: Speci men Type: BLOOD SPECIMEN Ordering Facility: External Submitter Address: , , Performed By: #### 1 798-8, , 3 #### [facility] CLIA [id number] [address] [place] [address] [place] Neutrophils/100 WBC (Bld) 78.8 % Normal [facility] Comment on above: Order Comment: Speci men Type: BLOOD SPECIMEN Ordering Facility: External Submitter Address: , , Performed By: #### 1 798-8, , 3 #### [facility] CLIA [id number] [address] [place] [address] [place] Nucleated RBC (Bld) [#/Vol] 10*3/uL Normal <0.01 [facility] Comment on above: Order Comment: Speci men Type: BLOOD SPECIMEN Ordering Facility: External Submitter Address: , , Performed By: #### 1 798-8, 63420-5, 3 #### [facility] CLIA [id number] [address] [place] [address] [place] Nucleated RBC/100 WBC (Bld) [Ratio] 0.0 /100 WBC Normal [facility] Comment on above: Order Comment: Speci men Type: BLOOD SPECIMEN Ordering Facility: External Submitter Address: , , Performed By: #### 1 798-8, 22149-9, 0-3 #### [facility] CLIA [id number] [address] [place] [address] [place] Platelet mean volume (Bld) [Entitic vol] 11.0 fL Normal 9.0-12.7 [facility] Comment on above: Order Comment: Speci men Type: BLOOD SPECIMEN Ordering Facility: External Submitter Address: , , Performed By: #### 1 798-8, 87075-8, 0-3 #### [facility] CLIA [id number] [address] [place] [address] [place] Platelets (Bld) [#/Vol] 221 10*3/uL Normal 150-400 [facility] Comment on above: Order Comment: Speci men Type: BLOOD SPECIMEN Ordering Facility: External Submitter Address: , , Performed By: #### 1 798-8, 65530-6, 3039-3 #### [facility] CLIA [id number] [address] [place] [address] [place] RBC (Bld) [#/Vol] 4.77 10*6/uL Normal 4.20-6.00 [facility] Comment on above: Order Comment: Speci men Type: BLOOD SPECIMEN Ordering Facility: External Submitter Address: , , Performed By: #### 1 798-8, 87300-8, 3039-3 #### [facility] CLIA [id number] [address] [place] [address] [place] WBC (Bld) [#/Vol] 7.70 10*3/uL Normal 3.70-11.00 [facility] Comment on above: Order Comment: Speci men Type: BLOOD SPECIMEN Ordering Facility: External Submitter Address: , , Performed By: #### 1 798-8, 62936-7, 0-3 #### [facility] CLIA [id number] [address] [place] [address] [place] Comprehensive metabolic 2000 panelon 09-13-2024 Albumin [Mass/Vol] 4.4 g/dL Normal 3.9-4.9 [facility] Comment on above: Order Comment: Speci men Type: BLOOD SPECIMEN Ordering Facility: External Submitter Address: , , Performed By: #### 1 798-8, 55656-0, 3039-3 #### [facility] CLIA [id number] [address] [place] [address] [place] ALP [Catalytic activity/Vol] 56 U/L Normal 38-113 [facility] Comment on above: Order Comment: Speci men Type: BLOOD SPECIMEN Ordering Facility: External Submitter Address: , , Performed By: #### 1 798-8, 04656-4, 3039-3 #### [facility] CLIA [id number] [address] [place] [address] [place] ALT [Catalytic activity/Vol] 35 U/L Normal 10-54 [facility] Comment on above: Order Comment: Speci men Type: BLOOD SPECIMEN Ordering Facility: External Submitter Address: , , Performed By: #### 1 798-8, 76902-8, 3039-3 #### [facility] CLIA [id number] [address] [place] [address] [place] Anion gap [Moles/Vol] 12 mmol/L Normal 8-15 [facility] Comment on above: Order Comment: Speci men Type: BLOOD SPECIMEN Ordering Facility: External Submitter Address: , , Performed By: #### 1 798-8, 79827-5, 3039-3 #### [facility] CLIA [id number] [address] [place] [address] [place] AST [Catalytic activity/Vol] 28 U/L Normal 14-40 [facility] Comment on above: Order Comment: Speci men Type: BLOOD SPECIMEN Ordering Facility: External Submitter Address: , , Performed By: #### 1 798-8, 28148-4, 3039-3 #### [facility] CLIA [id number] [address] [place] [address] [place] Bilirubin [Mass/Vol] 1.2 mg/dL Normal 0.2-1.3 [facility] Comment on above: Order Comment: Speci men Type: BLOOD SPECIMEN Ordering Facility: External Submitter Address: , , Performed By: #### 1 798-8, 79093-9, 3 #### [facility] CLIA [id number] [address] [place] [address] [place] Calcium [Mass/Vol] 10.0 mg/dL Normal 8.5-10.2 [facility] Comment on above: Order Comment: Speci men Type: BLOOD SPECIMEN Ordering Facility: External Submitter Address: , , Performed By: #### 1 798-8, 25123-2, 3 #### [facility] CLIA [id number] [address] [place] [address] [place] Chloride [Moles/Vol] 100 mmol/L Normal 98-107 [facility] Comment on above: Order Comment: Speci men Type: BLOOD SPECIMEN Ordering Facility: External Submitter Address: , , Performed By: #### 1 798-8, , 3 #### [facility] CLIA [id number] [address] [place] [address] [place] CO2 [Moles/Vol] 26 mmol/L Normal 22-30 [facility] Comment on above: Order Comment: Speci men Type: BLOOD SPECIMEN Ordering Facility: External Submitter Address: , , Performed By: #### 1 798-8, , 3 #### [facility] CLIA [id number] [address] [place] [address] [place] Creatinine [Mass/Vol] 0.95 mg/dL Normal 0.73-1.22 [facility] Comment on above: Order Comment: Speci men Type: BLOOD SPECIMEN Ordering Facility: External Submitter Address: , , Performed By: #### 1 798-8, 19901-5, 3039-3 #### [facility] CLIA [id number] [address] [place] [address] [place] Creatinine and Glomerular filtration rate.predicted panel (S/P/Bld) 104 mL/min/1.73m??? Normal >=60 [facility] Comment on above: Order Comment: Klaus [...] actual GFR. Performed By: #### 1 798-8, 72983-7, 0-3 #### [facility] CLIA [id number] [address] [place] [address] [place] Glucose [Mass/Vol] 103 mg/dL High 74-99 [facility] Comment on above: Order Comment: Klaus colindres Type: BLOOD SPECIMEN Ordering Facility: External Submitter Address: , , Result Comment: The [place] [employer] (ADA) provides guidance for cutoff [...] Standards of Medical Care in Diabetes 2016, [place] [employer]. Diabetes Care. 2016.39(Suppl 1). Performed By: #### 1 798-8, 09396-1, 0-3 #### [facility] CLIA [id number] [address] [place] [address] [place] Potassium [Moles/Vol] 3.5 mmol/L Low 3.7-5.1 [facility] Comment on above: Order Comment: Klaus colindres Type: BLOOD SPECIMEN Ordering Facility: External Submitter Address: , , Performed By: #### 1 798-8, 61247-8, 3040-3 #### [facility] CLIA [id number] [address] [place] [address] [place] Protein [Mass/Vol] 7.1 g/dL Normal 6.3-8.0 [facility] Comment on above: Order Comment: Speci men Type: BLOOD SPECIMEN Ordering Facility: External Submitter Address: , , Performed By: #### 1 798-8, 67589-5, 3039-3 #### [facility] CLIA [id number] [address] [place] [address] [place] Sodium [Moles/Vol] 138 mmol/L Normal 136-144 [facility] Comment on above: Order Comment: Klaus colindres Type: BLOOD SPECIMEN Ordering Facility: External Submitter Address: , , Performed By: #### 1 798-8, 17931-5, 3 #### [facility] CLIA [id number] [address] [place] [address] [place] Urea nitrogen [Mass/Vol] 11 mg/dL Normal 9-24 [facility] Comment on above: Order Comment: Speci jens Type: BLOOD SPECIMEN Ordering Facility: External Submitter Address: , , Performed By: #### 1 798-8, 37527-4, 3 #### [facility] CLIA [id number] [address] [place] [address] [place] Amylase SerPl-cCncon 025 Amylase [Catalytic activity/Vol] 61 U/L Normal 30-104 [facility] Comment on above: Order Comment: Klaus colindres Type: BLOOD SPECIMEN Ordering Facility: External Submitter Address: , , Performed By: #### 1 798-8, 64471-2, 3039-3 #### [facility] CLIA [id number] [address] [place] [address] [place] CBC W Auto Differential pane l (Bld)on 09-06-2024 Basophils (Bld) [#/Vol] 0.04 10*3/uL Normal <0.11 [facility] Comment on above: Order Comment: Klaus colindres Type: BLOOD SPECIMEN Ordering Facility: External Submitter Address: , , Performed By: #### 5 7021-8 #### [facility] CLIA [id number] [address] [place] [address] [place] Basophils/100 WBC (Bld) 0.4 % [facility] Comment on above: Order Comment: Speci men Type: BLOOD SPECIMEN Ordering Facility: External Submitter Address: , , Performed By: #### 5 7021-8 #### [facility] CLIA [id number] [address] [place] [address] [place] Differential cell count method Nom (Bld) Auto [facility] Comment on above: Order Comment: Speci men Type: BLOOD SPECIMEN Ordering Facility: External Submitter Address: , , Performed By: #### 5 7021-8 #### [facility] CLIA [id number] [address] [place] [address] [place] Eosinophils (Bld) [#/Vol] 0.04 10*3/uL Normal <0.46 [facility] Comment on above: Order Comment: Speci men Type: BLOOD SPECIMEN Ordering Facility: External Submitter Address: , , Performed By: #### 5 7021-8 #### [facility] CLIA [id number] [address] [place] [address] [place] Eosinophils/100 WBC (Bld) 0.4 % Normal [facility] Comment on above: Order Comment: Speci men Type: BLOOD SPECIMEN Ordering Facility: External Submitter Address: , , Performed By: #### 5 7021-8 #### [facility] CLIA [id number] [address] [place] [address] [place] Erythrocyte distribution width (RBC) [Ratio] 16.7 % High 11.5-15.0 [facility] Comment on above: Order Comment: Speci men Type: BLOOD SPECIMEN Ordering Facility: External Submitter Address: , , Performed By: #### 5 7021-8 #### [facility] CLIA [id number] [address] [place] [address] [place] Hematocrit (Bld) [Volume fraction] 40.0 % Normal 39.0-51.0 [facility] Comment on above: Order Comment: Speci men Type: BLOOD SPECIMEN Ordering Facility: External Submitter Address: , , Performed By: #### 5 7021-8 #### [facility] CLIA [id number] [address] [place] [address] [place] Hemoglobin (Bld) [Mass/Vol] 12.8 g/dL Low 13.0-17.0 [facility] Comment on above: Order Comment: Speci men Type: BLOOD SPECIMEN Ordering Facility: External Submitter Address: , , Performed By: #### 5 7021-8 #### [facility] CLIA [id number] [address] [place] [address] [place] Immature granulocytes (Bld) [#/Vol] 0.05 10*3/uL Normal <0.10 [facility] Comment on above: Order Comment: Speci men Type: BLOOD SPECIMEN Ordering Facility: External Submitter Address: , , Performed By: #### 5 7021-8 #### [facility] CLIA [id number] [address] [place] [address] [place] Immature granulocytes/100 WBC (Bld) 0.5 % Normal [facility] Comment on above: Order Comment: Speci men Type: BLOOD SPECIMEN Ordering Facility: External Submitter Address: , , Performed By: #### 5 7021-8 #### [facility] IA [id number] [address] [place] [address] [place] Lymphocytes (Bld) [#/Vol] 0.68 10*3/uL Low 1.00-4.00 [facility] Comment on above: Order Comment: Speci men Type: BLOOD SPECIMEN Ordering Facility: External Submitter Address: , , Performed By: #### 5 7021-8 #### [facility] CLIA [id number] [address] [place] [address] [place] Lymphocytes/100 WBC (Bld) 6.8 % Normal [facility] Comment on above: Order Comment: Speci men Type: BLOOD SPECIMEN Ordering Facility: External Submitter Address: , , Performed By: #### 5 7021-8 #### [facility] CLIA [id number] [address] [place] [address] MCH (RBC) [Entitic mass] 26.6 pg Normal 26.0-34.0 [facility] Comment on above: Order Comment: Speci men Type: BLOOD SPECIMEN Ordering Facility: External Submitter Address: , , Performed By: #### 5 7021-8 #### [facility] CLIA [id number] [address] [place] [address] MCHC (RBC) [Mass/Vol] 32.0 g/dL Normal 30.5-36.0 [facility] Comment on above: Order Comment: Speci men Type: BLOOD SPECIMEN Ordering Facility: External Submitter Address: , , Performed By: #### 5 7021-8 #### [facility] IA [id number] [address] [place] [address] MCV (RBC) [Entitic vol] 83.2 fL Normal 80.0-100.0 [facility] Comment on above: Order Comment: Speci men Type: BLOOD SPECIMEN Ordering Facility: External Submitter Address: , , Performed By: #### 5 7021-8 #### [facility] IA [id number] [address] [place] [address] Monocytes (Bld) [#/Vol] 0.63 10*3/uL Normal <0.87 [facility] Comment on above: Order Comment: Speci men Type: BLOOD SPECIMEN Ordering Facility: External Submitter Address: , , Performed By: #### 5 7021-8 #### [facility] CLIA [id number] [address] [place] [address] Monocytes/100 WBC (Bld) 6.3 % Normal [facility] Comment on above: Order Comment: Speci men Type: BLOOD SPECIMEN Ordering Facility: External Submitter Address: , , Performed By: #### 5 7021-8 #### [facility] CLIA [id number] [address] [place] [address] Neutrophils (Bld) [#/Vol] 8.53 10*3/uL High 1.45-7.50 [facility] Comment on above: Order Comment: Speci men Type: BLOOD SPECIMEN Ordering Facility: External Submitter Address: , , Performed By: #### 5 7021-8 #### [facility] CLIA [id number] [address] [place] [address] [place] Neutrophils/100 WBC (Bld) 85.6 % Normal [facility] Comment on above: Order Comment: Speci men Type: BLOOD SPECIMEN Ordering Facility: External Submitter Address: , , Performed By: #### 5 7021-8 #### [facility] CLIA [id number] [address] [place] [address] [place] Nucleated RBC (Bld) [#/Vol] 10*3/uL Normal <0.01 [facility] Comment on above: Order Comment: Speci men Type: BLOOD SPECIMEN Ordering Facility: External Submitter Address: , , Performed By: #### 5 7021-8 #### [facility] IA [id number] [address] [place] [address] [place] Nucleated RBC/100 WBC (Bld) [Ratio] 0.0 /100 WBC Normal [facility] Comment on above: Order Comment: Speci men Type: BLOOD SPECIMEN Ordering Facility: External Submitter Address: , , Performed By: #### 5 7021-8 #### [facility] IA [id number] [address] [place] [address] [place] Platelet mean volume (Bld) [Entitic vol] 10.9 fL Normal 9.0-12.7 [facility] Comment on above: Order Comment: Speci men Type: BLOOD SPECIMEN Ordering Facility: External Submitter Address: , , Performed By: #### 5 7021-8 #### [facility] CLIA [id number] [address] [place] [address] [place] Platelets (Bld) [#/Vol] 223 10*3/uL Normal 150-400 [facility] Comment on above: Order Comment: Speci men Type: BLOOD SPECIMEN Ordering Facility: External Submitter Address: , , Performed By: #### 5 7021-8 #### [facility] CLIA [id number] [address] [place] [address] [place] RBC (Bld) [#/Vol] 4.81 10*6/uL Normal 4.20-6.00 [facility] Comment on above: Order Comment: Speci men Type: BLOOD SPECIMEN Ordering Facility: External Submitter Address: , , Performed By: #### 5 7021-8 #### [facility] CLIA [id number] [address] [place] [address] WBC (Bld) [#/Vol] 9.97 10*3/uL Normal 3.70-11.00 [facility] Comment on above: Order Comment: Speci men Type: BLOOD SPECIMEN Ordering Facility: External Submitter Address: , , Performed By: #### 5 7021-8 #### [facility] CLIA [id number] [address] [place] [address] [place] Comprehensive metabolic 2000 panelon 09-06-2024 Albumin [Mass/Vol] 4.4 g/dL Normal 3.9-4.9 [facility] Comment on above: Order Comment: Speci men Type: BLOOD SPECIMEN Ordering Facility: External Submitter Address: , , Performed By: #### 1 798-8, 58692-0, 3039-3 #### [facility] CLIA [id number] [address] [place] [address] [place] ALP [Catalytic activity/Vol] 57 U/L Normal 38-113 [facility] Comment on above: Order Comment: Speci men Type: BLOOD SPECIMEN Ordering Facility: External Submitter Address: , , Performed By: #### 1 798-8, 33918-6, 0-3 #### [facility] CLIA [id number] [address] [place] [address] [place] ALT [Catalytic activity/Vol] 32 U/L Normal 10-54 [facility] Comment on above: Order Comment: Speci men Type: BLOOD SPECIMEN Ordering Facility: External Submitter Address: , , Performed By: #### 1 798-8, 13694-9, 3039-3 #### [facility] CLIA [id number] [address] [place] [address] [place] Anion gap [Moles/Vol] 12 mmol/L Normal 8-15 [facility] Comment on above: Order Comment: Speci men Type: BLOOD SPECIMEN Ordering Facility: External Submitter Address: , , Performed By: #### 1 798-8, 32759-7, 3 #### [facility] CLIA [id number] [address] [place] [address] [place] AST [Catalytic activity/Vol] 29 U/L Normal 14-40 [facility] Comment on above: Order Comment: Speci men Type: BLOOD SPECIMEN Ordering Facility: External Submitter Address: , , Performed By: #### 1 798-8, , 3 #### [facility] CLIA [id number] [address] [place] [address] [place] Bilirubin [Mass/Vol] 1.6 mg/dL High 0.2-1.3 [facility] Comment on above: Order Comment: Speci men Type: BLOOD SPECIMEN Ordering Facility: External Submitter Address: , , Performed By: #### 1 798-8, , 3 #### [facility] CLIA [id number] [address] [place] [address] [place] Calcium [Mass/Vol] 10.0 mg/dL Normal 8.5-10.2 [facility] Comment on above: Order Comment: Speci men Type: BLOOD SPECIMEN Ordering Facility: External Submitter Address: , , Performed By: #### 1 798-8, 21712-7, 3 #### [facility] CLIA [id number] [address] [place] [address] [place] Chloride [Moles/Vol] 101 mmol/L Normal 98-107 [facility] Comment on above: Order Comment: Speci men Type: BLOOD SPECIMEN Ordering Facility: External Submitter Address: , , Performed By: #### 1 798-8, 82939-1, 3 #### [facility] CLIA [id number] [address] [place], [place] [address] [place] CO2 [Moles/Vol] 25 mmol/L Normal 22-30 [facility] Comment on above: Order Comment: Klaus colindres Type: BLOOD SPECIMEN Ordering Facility: External Submitter Address: , , Performed By: #### 1 798-8, 04659-1, 3040-3 #### [facility] CLIA [id number] [address] [place] [address] [place] Creatinine [Mass/Vol] 0.95 mg/dL Normal 0.73-1.22 [facility] Comment on above: Order Comment: Speci jens Type: BLOOD SPECIMEN Ordering Facility: External Submitter Address: , , Performed By: #### 1 798-8, 97136-1, 0-3 #### [facility] CLIA [id number] [address] [place] [address] [place] Creatinine and Glomerular filtration rate.predicted panel (S/P/Bld) 104 mL/min/1.73m??? Normal >=60 [facility] Comment on above: Order Comment: Klaus [...] actual GFR. Performed By: #### 1 798-8, 59745-3, 3040-3 #### [facility] CLIA [id number] [address] [place], [place] [address] [place] Glucose [Mass/Vol] 87 mg/dL Normal 74-99 [facility] Comment on above: Order Comment: Klaus colindres Type: BLOOD SPECIMEN Ordering Facility: External Submitter Address: , , Result Comment: The [employer] (ADA) provides guidance for cutoff [...] Standards of Medical Care in Diabetes 2016, [employer]. Diabetes Care. 2016.39(Suppl 1). Performed By: #### 1 798-8, 99429-8, 0-3 #### [facility] CLIA [id number] [address] [place] [address] [place] Potassium [Moles/Vol] 3.7 mmol/L Normal 3.7-5.1 [facility] Comment on above: Order Comment: Klaus colindres Type: BLOOD SPECIMEN Ordering Facility: External Submitter Address: , , Performed By: #### 1 798-8, , 3 #### [facility] CLIA [id number] [address] [place] [address] [place] Protein [Mass/Vol] 7.2 g/dL Normal 6.3-8.0 [facility] Comment on above: Order Comment: Klaus colindres Type: BLOOD SPECIMEN Ordering Facility: External Submitter Address: , , Performed By: #### 1 798-8, , 3 #### [facility] CLIA [id number] [address] [place] [address] [place] Sodium [Moles/Vol] 138 mmol/L Normal 136-144 [facility] Comment on above: Order Comment: Klaus colindres Type: BLOOD SPECIMEN Ordering Facility: External Submitter Address: , , Performed By: #### 1 798-8, , 3 #### [facility] CLIA [id number] [address] [place] [address] [place] Urea nitrogen [Mass/Vol] 14 mg/dL Normal 9-24 [facility] Comment on above: Order Comment: Speci men Type: BLOOD SPECIMEN Ordering Facility: External Submitter Address: , , Performed By: #### 1 798-8, 28193-9, 3040-3 #### [facility] CLIA [id number] [address] [place] [address] [place] Lipase SerPl-cCncon 09-07-19 25 Lipase [Catalytic activity/Vol] 85 U/L High 16-61 [facility] Comment on above: Order Comment: Speci men Type: BLOOD SPECIMEN Ordering Facility: External Submitter Address: , , Performed By: #### 1 798-8, 89123-8, 0-3 #### [facility] CLIA [id number] [address] [place] [address] [place] Amylase SerPl-cCncon 025 Amylase [Catalytic activity/Vol] 60 U/L Normal 30-104 [facility] Comment on above: Order Comment: Speci men Type: BLOOD SPECIMEN Ordering Facility: External Submitter Address: , , Performed By: #### 1 798-8, 61520-2, 3039-3 #### [facility] CLIA [id number] [address] [place] [address] [place] CBC W Auto Differential pane l (Bld)on 08-30-2024 Basophils (Bld) [#/Vol] 10*3/uL Normal <0.11 [facility] Comment on above: Order Comment: Speci men Type: BLOOD SPECIMEN Ordering Facility: External Submitter Address: , , Performed By: #### 5 7021-8 #### [facility] CLIA [id number] [address] [place] [address] [place] Basophils/100 WBC (Bld) 0.2 % Normal [facility] Comment on above: Order Comment: Speci men Type: BLOOD SPECIMEN Ordering Facility: External Submitter Address: , , Performed By: #### 5 7021-8 #### [facility] CLIA [id number] [address] [place] [address] [place] Differential cell count method Nom (Bld) Auto Normal [facility] Comment on above: Order Comment: Speci men Type: BLOOD SPECIMEN Ordering Facility: External Submitter Address: , , Performed By: #### 5 7021-8 #### [facility] CLIA [id number] [address] [place] [address] [place] Eosinophils (Bld) [#/Vol] 10*3/uL Normal <0.46 [facility] Comment on above: Order Comment: Speci men Type: BLOOD SPECIMEN Ordering Facility: External Submitter Address: , , Performed By: #### 5 7021-8 #### [facility] CLIA [id number] [address] [place] [address] [place] Eosinophils/100 WBC (Bld) 0.2 % Normal [facility] Comment on above: Order Comment: Speci men Type: BLOOD SPECIMEN Ordering Facility: External Submitter Address: , , Performed By: #### 5 7021-8 #### [facility] IA [id number] [address] [place] [address] [place] Erythrocyte distribution width (RBC) [Ratio] 17.2 % High 11.5-15.0 [facility] Comment on above: Order Comment: Speci men Type: BLOOD SPECIMEN Ordering Facility: External Submitter Address: , , Performed By: #### 5 7021-8 #### [facility] IA [id number] [address] [place] [address] [place] Hematocrit (Bld) [Volume fraction] 40.4 % Normal 39.0-51.0 [facility] Comment on above: Order Comment: Speci men Type: BLOOD SPECIMEN Ordering Facility: External Submitter Address: , , Performed By: #### 5 7021-8 #### [facility] CLIA [id number] [address] [place] [address] [place] Hemoglobin (Bld) [Mass/Vol] 12.9 g/dL Low 13.0-17.0 [facility] Comment on above: Order Comment: Speci men Type: BLOOD SPECIMEN Ordering Facility: External Submitter Address: , , Performed By: #### 5 7021-8 #### [facility] CLIA [id number] [address] [place] [address] Immature granulocytes (Bld) [#/Vol] 0.03 10*3/uL Normal <0.10 [facility] Comment on above: Order Comment: Speci men Type: BLOOD SPECIMEN Ordering Facility: External Submitter Address: , , Performed By: #### 5 7021-8 #### [facility] CLIA [id number] [address] [place] [address] [place] Immature granulocytes/100 WBC (Bld) 0.3 % Normal [facility] Comment on above: Order Comment: Speci men Type: BLOOD SPECIMEN Ordering Facility: External Submitter Address: , , Performed By: #### 5 7021-8 #### [facility] CLIA [id number] [address] [place] [address] Lymphocytes (Bld) [#/Vol] 0.46 10*3/uL Low 1.00-4.00 [facility] Comment on above: Order Comment: Speci men Type: BLOOD SPECIMEN Ordering Facility: External Submitter Address: , , Performed By: #### 5 7021-8 #### [facility] CLIA [id number] [address] [place] [address] Lymphocytes/100 WBC (Bld) 4.6 % Normal [facility] Comment on above: Order Comment: Speci men Type: BLOOD SPECIMEN Ordering Facility: External Submitter Address: , , Performed By: #### 5 7021-8 #### [facility] CLIA [id number] [address] [place] [address] [place] MCH (RBC) [Entitic mass] 26.8 pg Normal 26.0-34.0 [facility] Comment on above: Order Comment: Speci men Type: BLOOD SPECIMEN Ordering Facility: External Submitter Address: , , Performed By: #### 5 7021-8 #### [facility] CLIA [id number] [address] [place] [address] [place] MCHC (RBC) [Mass/Vol] 31.9 g/dL Normal 30.5-36.0 [facility] Comment on above: Order Comment: Speci men Type: BLOOD SPECIMEN Ordering Facility: External Submitter Address: , , Performed By: #### 5 7021-8 #### [facility] CLIA [id number] [address] [place] [address] MCV (RBC) [Entitic vol] 83.8 fL Normal 80.0-100.0 [facility] Comment on above: Order Comment: Speci men Type: BLOOD SPECIMEN Ordering Facility: External Submitter Address: , , Performed By: #### 5 7021-8 #### [facility] CLIA [id number] [address] [place] [address] [place] Monocytes (Bld) [#/Vol] 0.35 10*3/uL Normal <0.87 [facility] Comment on above: Order Comment: Speci men Type: BLOOD SPECIMEN Ordering Facility: External Submitter Address: , , Performed By: #### 5 7021-8 #### [facility] CLIA [id number] [address] [place] [address] Monocytes/100 WBC (Bld) 3.5 % Normal [facility] Comment on above: Order Comment: Speci men Type: BLOOD SPECIMEN Ordering Facility: External Submitter Address: , , Performed By: #### 5 7021-8 #### [facility] IA [id number] [address] [place] [address] [place] Neutrophils (Bld) [#/Vol] 9.11 10*3/uL High 1.45-7.50 [facility] Comment on above: Order Comment: Speci men Type: BLOOD SPECIMEN Ordering Facility: External Submitter Address: , , Performed By: #### 5 7021-8 #### [facility] CLIA [id number] [address] [place] [address] Neutrophils/100 WBC (Bld) 91.2 % Normal [facility] Comment on above: Order Comment: Speci men Type: BLOOD SPECIMEN Ordering Facility: External Submitter Address: , , Performed By: #### 5 7021-8 #### [facility] CLIA [id number] [address] [place] [address] [place] Nucleated RBC (Bld) [#/Vol] 10*3/uL Normal <0.01 [facility] Comment on above: Order Comment: Speci men Type: BLOOD SPECIMEN Ordering Facility: External Submitter Address: , , Performed By: #### 5 7021-8 #### [facility] CLIA [id number] [address] [place] [address] [place] Nucleated RBC/100 WBC (Bld) [Ratio] 0.0 /100 WBC Normal [facility] Comment on above: Order Comment: Speci men Type: BLOOD SPECIMEN Ordering Facility: External Submitter Address: , , Performed By: #### 5 7021-8 #### [facility] IA [id number] [address] [place] [address] [place] Platelet mean volume (Bld) [Entitic vol] 11.4 fL Normal 9.0-12.7 [facility] Comment on above: Order Comment: Speci men Type: BLOOD SPECIMEN Ordering Facility: External Submitter Address: , , Performed By: #### 5 7021-8 #### [facility] CLIA [id number] [address] [place] [address] [place] Platelets (Bld) [#/Vol] 216 10*3/uL Normal 150-400 [facility] Comment on above: Order Comment: Speci men Type: BLOOD SPECIMEN Ordering Facility: External Submitter Address: , , Performed By: #### 5 7021-8 #### [facility] CLIA [id number] [address] [place] [address] [place] RBC (Bld) [#/Vol] 4.82 10*6/uL Normal 4.20-6.00 [facility] Comment on above: Order Comment: Speci men Type: BLOOD SPECIMEN Ordering Facility: External Submitter Address: , , Performed By: #### 5 7021-8 #### [facility] CLIA [id number] [address] [place] [address] [place] WBC (Bld) [#/Vol] 9.99 10*3/uL Normal 3.70-11.00 [facility] Comment on above: Order Comment: Speci men Type: BLOOD SPECIMEN Ordering Facility: External Submitter Address: , , Performed By: #### 5 7021-8 #### [facility] CLIA [id number] [address] [place] [address] [place] Comprehensive metabolic 2000 panelon 08-30-2024 Albumin [Mass/Vol] 4.4 g/dL Normal 3.9-4.9 [facility] Comment on above: Order Comment: Speci men Type: BLOOD SPECIMEN Ordering Facility: External Submitter Address: , , Performed By: #### 1 798-8, 83034-2, 3040-3 #### [facility] CLIA [id number] [address] [place] [address] [place] ALP [Catalytic activity/Vol] 65 U/L Normal 38-113 [facility] Comment on above: Order Comment: Speci men Type: BLOOD SPECIMEN Ordering Facility: External Submitter Address: , , Performed By: #### 1 798-8, 70775-4, 3040-3 #### [facility] CLIA [id number] [address] [place] [address] [place] ALT [Catalytic activity/Vol] 27 U/L Normal 10-54 [facility] Comment on above: Order Comment: Speci men Type: BLOOD SPECIMEN Ordering Facility: External Submitter Address: , , Performed By: #### 1 798-8, 13712-5, 3040-3 #### [facility] CLIA [id number] [address] [place] [address] [place] Anion gap [Moles/Vol] 10 mmol/L Normal 8-15 [facility] Comment on above: Order Comment: Speci men Type: BLOOD SPECIMEN Ordering Facility: External Submitter Address: , , Performed By: #### 1 798-8, 75283-5, 3040-3 #### [facility] CLIA [id number] [address] [place] [address] [place] AST [Catalytic activity/Vol] 23 U/L Normal 14-40 [facility] Comment on above: Order Comment: Speci men Type: BLOOD SPECIMEN Ordering Facility: External Submitter Address: , , Performed By: #### 1 798-8, 37710-7, 3 #### [facility] CLIA [id number] [address] [place] [address] [place] Bilirubin [Mass/Vol] 0.7 mg/dL Normal 0.2-1.3 [facility] Comment on above: Order Comment: Speci men Type: BLOOD SPECIMEN Ordering Facility: External Submitter Address: , , Performed By: #### 1 798-8, 69995-0, 3 #### [facility] CLIA [id number] [address] [place] [address] [place] Calcium [Mass/Vol] 9.5 mg/dL Normal 8.5-10.2 [facility] Comment on above: Order Comment: Speci men Type: BLOOD SPECIMEN Ordering Facility: External Submitter Address: , , Performed By: #### 1 798-8, , 3 #### [facility] CLIA [id number] [address] [place] [address] [place] Chloride [Moles/Vol] 102 mmol/L Normal 98-107 [facility] Comment on above: Order Comment: Speci men Type: BLOOD SPECIMEN Ordering Facility: External Submitter Address: , , Performed By: #### 1 798-8, , 3 #### [facility] CLIA [id number] [address] [place] [address] [place] CO2 [Moles/Vol] 27 mmol/L Normal 22-30 [facility] Comment on above: Order Comment: Speci men Type: BLOOD SPECIMEN Ordering Facility: External Submitter Address: , , Performed By: #### 1 798-8, 23827-3, 3 #### [facility] CLIA [id number] [address] [place] [address] [place] Creatinine [Mass/Vol] 0.88 mg/dL Normal 0.73-1.22 [facility] Comment on above: Order Comment: Speci men Type: BLOOD SPECIMEN Ordering Facility: External Submitter Address: , , Performed By: #### 1 798-8, 87947-7, 3039-3 #### [facility] CLIA [id number] [address] [place] [address] [place] Creatinine and Glomerular filtration rate.predicted panel (S/P/Bld) 112 mL/min/1.73m??? Normal >=60 [facility] Comment on above: Order Comment: Klaus [...] actual GFR. Performed By: #### 1 798-8, 56804-9, 3039-3 #### [facility] CLIA [id number] [address] [place] [address] [place] Glucose [Mass/Vol] 115 mg/dL High 74-99 [facility] Comment on above: Order Comment: Klaus colindres Type: BLOOD SPECIMEN Ordering Facility: External Submitter Address: , , Result Comment: The [employer] (ADA) provides guidance for cutoff [...] Standards of Medical Care in Diabetes 2016, [employer]. Diabetes Care. 2016.39(Suppl 1). Performed By: #### 1 798-8, 70279-6, 0-3 #### [facility] CLIA [id number] [address] [place] [address] [place] Potassium [Moles/Vol] 3.5 mmol/L Low 3.7-5.1 [facility] Comment on above: Order Comment: Speci men Type: BLOOD SPECIMEN Ordering Facility: External Submitter Address: , , Performed By: #### 1 798-8, 02028-8, 0-3 #### [facility] CLIA [id number] [address] [place] [address] [place] Protein [Mass/Vol] 7.2 g/dL Normal 6.3-8.0 [facility] Comment on above: Order Comment: Speci men Type: BLOOD SPECIMEN Ordering Facility: External Submitter Address: , , Performed By: #### 1 798-8, 98092-9, 3039-3 #### [facility] CLIA [id number] [address] [place] [address] [place] Sodium [Moles/Vol] 139 mmol/L Normal 136-144 [facility] Comment on above: Order Comment: Speci men Type: BLOOD SPECIMEN Ordering Facility: External Submitter Address: , , Performed By: #### 1 798-8, 57460-8, 3 #### [facility] CLIA [id number] [address] [place] [address] [place] Urea nitrogen [Mass/Vol] 14 mg/dL Normal 9-24 [facility] Comment on above: Order Comment: Speci men Type: BLOOD SPECIMEN Ordering Facility: External Submitter Address: , , Performed By: #### 1 798-8, 99228-3, 3039-3 #### [facility] CLIA [id number] [address] [place] [address] [place] Lipase SerPl-cCncon 08-31-19 25 Lipase [Catalytic activity/Vol] 117 U/L High 16-61 [facility] Comment on above: Order Comment: Speci men Type: BLOOD SPECIMEN Ordering Facility: External Submitter Address: , , Performed By: #### 1 798-8, 64394-2, 3039-3 #### [facility] CLIA [id number] [address] [place] [address] [place] Gastroenterology Visit Repor ton 08-17-2024 Gastroenterology Visit Report [facility] Gastroenterology [address] [place] [address] OFFICE VISIT Date of Service: 08/17/24 MR#: [id number] Acct: [id number] Name: JAIR WARREN Rep #: [id number] : 1985 Provider: RENETTA ocampo Age/Sex: 39/M [place] [facility] [place]: Signed Intake Vital Signs 07/14/24 06:12 [...] diarrhea but no abdominal pain or nausea/vomitting. [facility] Medical History Wears contact lenses Alcohol use [...] Constitutional: Pos (more content not included)... Normal [facility] Colonoscopy Reporton 025 Colonoscopy Report [facility] Medical Records Department [address] [place] [address] Colonoscopy Report MR#: [id number] Acct: [id number] Name: JAIR WARREN Rep #: [id number] : 1985 39 From: Price Villanueva DO [...] was uns (more content not included)... Normal [facility] EGD Reporton 07-14-2024 EGD Report [facility] Medical Records Department [address] [place] [address] EGD Report MR#: [id number] Acct: [id number] Name: JAIR WARREN Rep #: [id number] : 1985 39 From: Price Villanueva DO [...] upper endoscopy. Procedure Code(s): --- Professional --- 26552, Small intestinal endoscopy, enteroscopy beyond second portion of duodenum, not including ileum; with biopsy, single or multiple CPT copyright 2021 [employer]. All rights reserved. The codes documented in this report are preliminary and upon crew mess attendant review may be revised to meet current compliance requirements. Price Villanueva DO 07/14/2024 7:30:55 AM This report has been signed electronically. Number of Addenda: 0 Note Initiated On: 07/14/2024 6:22 AM 07/14/24730 Date Price Villanueva DO Cosigner Signature: Date (if indicated) CC: Dr. Aman Diop MD; Price Villanueva DO Date Dictated: 07/14/24621 Date Transcribed: Development Consultant: BOBBY Goldstein [facility] MR/POSTOP.[facility] 07-14-2024 MR/POSTOP.[facility] Medical Records Department [address] [place] [address] Anesthesia Postop Eval I 07/14/24735 MR#: [id number] Acct: [id number] Name: JAIR WARREN Rep #: [id number] : 1985 39 From: Herbert White PCP: Dr. Aman Diop MD [place] [place] Race: C Location: [place] [address] Anesthesia: Postop Eval I Current Vital Signs [...] Anesthesia document: Postop Eval 1 completed: Yes 07/14/2437 Date Herbert Diaz Signature: Date CC: Signed Normal [facility] MR/PMHKHYFM2ic 07-14-2024 MR/POSTOPAN2 [facility] Medical Records Department [address] [place] [address] Anesthesia Postop Eval II 07/14/24900 MR#: [id number] Acct: [id number] Name: JAIR WARREN Rep #: [id number] : 1985 39 From: Mk Lomeli MD PCP: Dr. Aman Diop MD Status:[facility] Y Race: C Location: [place] Anesthesia Postop [...] No Vomiting: No Complications Anesthesia Complication: No 07/14/24 09 Date Mk Kancherla MD Cosigner Signature: Date CC: Signed Normal [facility] No Panel Informationon 07-14 Surgery Specimen Level IV See Note [facility] Work Phone: Surgery Specimen Level Regan 07-14-2024 Surgery Specimen Level IV Patient Age/Sex Location Account Attending Physician JAIR WARREN 39/M EN [id number] Price Villanueva DO Specimen: [id number] Received: 07/14/24 Status: VIGNESH Robledo Num: [id number] Spec Type: EGD BIOPSY Subm Dr: Price Friend, DO HEADER OPERATION: Colonoscopy, EGD, biopsy PRE-OP DIAGNOSIS: Crohn's [...] name, date of , and distal esophagus biopsy is a 0.4 x 0.3 x 0.2 cm fragment of fuchs-pink mucosal tissue. Submitted in toto in A1. B. Received in formalin in a container labeled with the patient's name, date of , and anastomosis biopsy are 2 fuchs-pink fragments of mucosal tissue [...] 0.3 cm. Submitted in toto in C1. [facility] 07-14-2024 CPT:67111d3 Patient Age/Sex Location Account Attending Physician JAIR WARREN 39/M EN [id number] Price Villanueva DO Signed (signature on file) Dr. Melanie Michelle DO 07/15/24 1206 Normal [facility] Comment on above: Performed By: #### P LISA ####[facility] [id number] [place], [address] [id number] 07-01-2024 [facility]. Normal [facility] Comment on above: Order Comment: [id number] 0 TPMT GREEN RF Result Comment: TEST [...] developed and its performance characteristics determined by [employer]. It has not been cleared or approved by the Food and Drug Administration. This case has been reviewed, approved, interpreted and electronically signed by [place] Diaz, PhD, [facility]. Methodology Enzymatic Endpoint/Liquid Chromatography - Tandem Mass Spectrometry (LC-MS/MS) TESTING PERFORMED AT [employer] ORIGINAL REPORT ON FILE IN LAB CONTAINS ADDITIONAL TEST SITE INFORMATION. Performed By: #### L 3410.9998 #### [facility] Laboratory [address] [place], [address] L3410.9998on 06-27-2024 [facility] COMMENT Normal . [facility] Comment on above: Order Comment: [id number] 0THIOPURINE MET EDTA RF Result Comment: Test Ordered: [id number] Thiopurine Metabolites 6-TGN <31 ES Units of Measure: pmol/8x 10E8 Reference Range: . This test was developed and its performance characteristics determined by [employer]. It has not been cleared or approved by the Food and Drug Administration. Reference Range: For treatment of inflammatory bowel disease (IBD)(1): Suboptimal dosing:<235 pmol 6-TGN/8x10E8 Red Blood Cells Optimal dosin-450 pmol 6-TGN/8x10E8 Red Blood Cells Increasing Risk for Myelotoxicity and Leucopoenia: >450 pmol 6-TGN/8x10E8 Red Blood Cells 1. Mitchell et al. Inflamm Bowel Dis.2011;6(17):0868-7929 6-MMPN <156 ES Units of Measure: pmol/8x 10E8 Reference Range: . This test was developed and its performance characteristics determined by [employer]. It has not been cleared or approved by the Food and Drug Administration. Reference Range: Hepatotoxicity Risk: >5700 pmol 6-MMPN/8x10E8 Red Blood Cells Performed at: [facility] [address] [place] [address] [id number] Dip Dyer: Fransisco Brown MD, Phone: [phone] Performed at: [address] [id number] Dip Dyer: Jae Jones PhD, Phone: [phone] Performed By: #### L 501.6710, L3410.9998, L503.0106, L506.1001 ####[facility] [address] [place], [address] CRPon 06-20-2024 C-REACTIVE PROT 4.60 mg/L High 0.0-3.0 [facility]; [facility] Work Phone: Comment on above: Performed By: #### L 501.6710, L3410.9998, L503.0106, L506.1001 ####[facility] [address] [place], [address] CRP [Mass/Vol]Ordered By: Leo Sears on 06-20-2024 C-Reactive Protein Extended Range 4.60 mg/L High 0.0-3.0 [facility] Gastroenterology Visit Repor ton 06-20-2024 Gastroenterology Visit Report [facility] [address] [place] [address] OFFICE VISIT Date of Service: 06/20/24 MR#: [id number] Acct: [id number] Name: JAIR WARREN Rep #: [id number] : 1985 Provider: RENETTA ocampo Age/Sex: 39/M [place] [facility] [place]: Signed Intake Vital Signs 05/03/24 15:05 06/13/24 11:00 06/20/24 15:10 Height 6 ft 2 in 6 ft 2 in 6 ft 2 in Weight: 203 lb 2 oz BMI 26.0 BP 148/99 H Respiration 18 Pulse 89 Pulse Oximetry (%) 98 Oxygen Delivery Method room air Intake Visit Reasons: Test Result Chief Complaint: consult post admission Manager Of Human Resources Required: No Accompanied by: Is patient in [...] is continuing to experience diarrhea and rectal jelly discharge. He denies any rectal pain and [...] spent on this visit reviewing EPIC and/or [facility] for associated records; previous notes (OP note [...] Core, HBVsAb (more content not included)... Normal [facility] L503.0106on 06-20-2024 Cobalamin (Vitamin B12) [Mass/Vol] 358 pg/mL Normal 180-914 [facility] Comment on above: Performed By: #### L 501.6710, L3410.9998, L503.0106, L506.1001 ####[facility] [address] [place], [address] L506.1001on 06-20-2024 Vitamin D 25-OH 34.6 ng/mL Normal 30-100 [facility]; [facility] Work Phone: Comment on above: Result Comment: Rabia min D Status Deficiency: <20 ng/mL (50nmol/L) Insufficiency: 20-30 ng/mL (50-75 nmol/L) Sufficiency: 30-100 ng/mL (75-250 nmol/L) Toxicity: >100 ng/mL (>250 nmol/L) Performed By: #### L 501.6710, L3410.9998, L503.0106, L506.1001 ####[facility] [address] [place], [address] No Panel Informationon 06-20 [facility] Misc. COMMENT Normal [facility]; [facility] Work Phone: [facility] Misc. Normal [facility].; [facility] Work Phone: Serum or plasma C reactive p rotein measurement (mass/volume)Ordered By: Josefina Sears on 06-20-2024 CRP [Mass/Vol] 4.60 mg/L High 0.0-3.0 [facility] Vitamin B12 ser/plasOrdered By: Josefina Sears on 06-20-2024 Cobalamin (Vitamin B12) [Mass/Vol] 358 pg/mL Normal 180 - 914 pg/mL [facility] Vitamin D, 25-hydroxyOrdered By: Josefina Sears on 06-20-2024 Vitamin D 25-Hydroxy 34.6 ng/mL 30-100 [facility] Comment on above: Vitamin D StatusDefi ciency: <20 ng/mL (50nmol/L)Insufficiency: 20-30 ng/mL (50-75 nmol/L)Sufficiency: 30-100 ng/mL (75-250 nmol/L)Toxicity: >100 ng/mL (>250 nmol/L) Magnetic resonance imaging r eportOrdered By: Tosin Fairchild on 06-14-2024 Study report [facility] Imaging Services [address] [place] [address] Enterography Abd/Pel MR#: [id number] Acct: [id number] Name: JAIR WARREN Rep #: [id number] : 1985 M 39 From: Queta Fairchild MD PCP: Dr. Aman Diop MD Status: BIANCA GALLARDO Study:Enterography Abd/Pel Date of Exam: 06/13/24 Exam# [id number] Ordering Dr: Josefina Sears SALES PROGRAM COORDINATOR-C PROCEDURE: ENTEROGRAPHY ABD/PEL (procedure code MRIMRIENTER), 06/13/2024 [...] 2. Additional description as above. Reading Location: [facility] CC: RENETTA Sears; Dr. Aman Diop MD ~ Development Consultant: Signed [facility] Enterography Abd/Jadon 06-13 Enterography Abd/Pel [facility] Imaging Services [address] [place] [address] Enterography Abd/Pel MR#: [id number] Acct: [id number] Name: JAIR WARREN Rep #: [id number] : 1985 M 39 From: Tosin Fairchild MD PCP: Dr. Aman Diop MD Status: REG CLI Study: Enterography Abd/Pel Date of Exam: 06/13/24 Exam# [id number] Ordering Dr: Josefina Sears PROCEDURE: ENTEROGRAPHY ABD/PEL [...] 2. Additional description as above. Reading Location: [facility] CC: RENETTA Sears; Dr. Aman Diop MD Development Consultant: Signed Normal [facility] Magnetic resonance imaging r eportOrdered By: Tosin Fairchild on 06-07-2024 Study report [facility] Imaging Services [address] [place], [place] [address] Pelvis W/WO Contrast MR#: [id number] Acct: [id number] Name: JAIR WARREN Rep #: [id number] : 1985 M 39 From: Queta Fairchild MD PCP: Care Physician,No Primary Status: REG CLI Study:Pelvis W/WO Contrast Date of Exam: 06/07/24 Exam# [id number] Ordering Dr: Josefina Sears PROCEDURE: PELVIS W/WO [...] 2. Additional description as above. Reading Location: [facility] CC: RENETTA Sears; No Primary Care Physician ~ Development Consultant: Signed [facility] Pelvis W/WO Contraston 06-07 Pelvis W/WO Contrast [facility] Imaging Services [address] [place], [place] [address] Pelvis W/WO Contrast MR#: [id number] Acct: [id number] Name: JAIR WARREN Rep #: [id number] : 1985 M 39 From: Tosin Fairchild MD PCP: Care Physician,No Primary Status: REG CLI Study: Pelvis W/WO Contrast Date of Exam: 06/07/24 Exam# [id number] Ordering Dr: Josefina Sears PROCEDURE: PELVIS W/WO [...] 2. Additional description as above. Reading Location: [facility] CC: RENETTA Sears; No Primary Care Physician Development Consultant: Signed Normal [facility] US RUQ (GB/PANCREAS)on 05-25 US RUQ (GB/PANCREAS) [address] [address] Patient: JAIR WARREN Phone#: : 1985 Age: 38 Gender: M Pt. Type: Out Account: [id number] Location: 062 Ordering: JENNIFER WARREN Exam Date: 05/25/2024/7:57 Family Phys: AMAN DIOP Charge Code: 271456 Physician: [place] Order #: [id number] Dose#: PROCEDURE: RUQ (GB) ULTRASOUND [facility] the [facility]/PELVIS W CON, 03/21/2024, 6:41. [...] CHAU MD ON 05/25/2024 AT 15:02 Normal [facility] OVA & PARASITE EXAM [CCL]on 05-11-2024 OVA AND PARASITE EXAM See Below [facility] Comment on above: Result Comment: OVA AND [...] submitted to improve detection sensitivity. SOURCE: [facility] [address] [place] [address] Tim Santana III, M.D. [id number] Performed By: #### 2 13149 #### [facility],[address] [place] [address] EX. STOOL GI PANEL BY PCR [C CL]on 05-09-2024 EX. STOOL GI PANEL BY PCR [CCL] Normal [facility] Comment on above: Result Comment: _STO OL GASTROINTESTINAL PANEL BY PCR_ SEE SCANNED REPORT Performed By: #### 2 31275 #### [facility],[address] [place] [address] C diff Tox gens Stl Ql LA NENA+p robeon 05-07-2024 C. difficile toxin genes LA NENA+probe Ql (Stl) Negative Normal Negative for C. difficile toxin by PCR [facility] Comment on above: Order Comment: Speci men Type: STOOL SPECIMENOrdering Facility: [facility] Address: [address] [place] [address] Performed By: #### 5 4067-4, 19485-5 ####[facility] LABCL[facility] [id number] [place] [address] [place] CLOSTRIDIUM DIFFICLE TOXIN P CR [CCL]on 05-07-2024 RESULT CRITICAL? NO Normal [facility] Comment on above: Performed By: #### 2 43622 #### [facility],[address] [place] [address] C difficile PCR Negative Normal Negative for C. difficile [facility] Comment on above: Result Comment: [facility] [address] [place] [address] Tim Santana III, M.D. [id number] Performed By: #### 2 07087 #### [facility],[address] [place] [address] Calprotectin, Stoolon [address] 71 ug/g Normal 0-120 [facility] Comment on above: Result Comment: Conc entration Interpretation Follow-Up < 5 - 50 ug/g Normal None >50 -120 ug/g Borderline Re-evaluate in 4-6 weeks >120 ug/g Abnormal Repeat as clinically indicated Performed at: [address] [id number] Dip Dyer: Jimbo Beauchamp MD, Phone: [phone] Performed By: #### L 7000.0700 ####[facility] [address] [place], [place], [address] Gastrointestinal pathogens p ronaldo LA NENA+probe (Stl)on 05-07-2024 ADENOVIRUS F 40/41 DNA Not detected Normal Not Detected [facility] Comment on above: Order Comment: Speci men Type: STOOL SPECIMENOrdering Facility: [facility] Address: [address] [place] [address] Performed By: #### 5 4067-4, 21882-5 ####[facility] LABCLIA [id number] [place] [address] [place] ASTROVIRUS RNA Not detected Normal Not Detected [facility] Comment on above: Order Comment: Speci men Type: STOOL SPECIMENOrdering Facility: [facility] Address: [address] [place] [address] Performed By: #### 5 4067-4, 83909-7 ####[facility] LABCLIA [id number] [address] [address] [place] C. cayetanensis DNA LA NENA+probe Ql (Unsp spec) Not detected Normal Not Detected [facility] Comment on above: Order Comment: Speci men Type: STOOL SPECIMENOrdering Facility: [facility] Address: [address] [place] [address] Performed By: #### 5 4067-4, 12707-3 ####[facility] LABCLIA [id number] [place] [address] [place] Campylobacter sp DNA.diarrheagenic LA NENA+probe Ql (Stl) Not detected Normal Not Detected [facility] Comment on above: Order Comment: Speci men Type: STOOL SPECIMENOrdering Facility: [facility] Address: [address] [place] [address] Performed By: #### 5 4067-4, 51639-6 ####[facility]CLIA [id number] [place] [address] [place] Cryptosporidium sp DNA LA NENA+probe Ql (Unsp spec) Not detected Normal Not Detected [facility] Comment on above: Order Comment: Speci men Type: STOOL SPECIMENOrdering Facility: [facility] Address: [address] [place] [address] Performed By: #### 5 4067-4, 36085-1 ####[facility]CLIA [id number] [place] [address] [place] E. coli O157:H7 DNA LA NENA+probe Ql (Unsp spec) Not applicable Normal Not detected [facility] Comment on above: Order Comment: Speci men Type: STOOL SPECIMENOrdering Facility: [facility] Address: [address] [place] [address] Performed By: #### 5 4067-4, 63342-3 ####[facility] LAB[facility]IA [id number] [place] [address] [place] E. coli stx1+stx2 genes LA NENA+probe Ql (Stl) Not detected Normal Not Detected [facility] Comment on above: Order Comment: Speci [facility] Type: STOOL SPECIMENOrdering Facility: [facility] Address: [address] [place] [address] Performed By: #### 5 4067-4, 20251-1 ####[facility] LABCLIA [id number] [place] [address] [place] E. histolytica DNA LA NENA+probe Ql (Unsp spec) Not detected Normal Not Detected [facility] Comment on above: Order Comment: Speci men Type: STOOL SPECIMENOrdering Facility: [facility] Address: [address] [place], [place] [address] Performed By: #### 5 4066-4, 26143-8 ####[facility] LABCLIA [id number] [place] [address] [place] ENTEROAGGREGATIVE E. COLI (EAEC) DNA Not detected Normal Not Detected [facility] Comment on above: Order Comment: Speci men Type: STOOL SPECIMENOrdering Facility: [facility] Address: [address] [place] [address] Performed By: #### 5 4066-4, 60249-1 ####[facility] LABCLIA [id number] [place] [address] [place] ENTEROPATHOGENIC E. COLI (EPEC) DNA Not detected Normal Not detected [facility] Comment on above: Order Comment: Speci men Type: STOOL SPECIMENOrdering Facility: [facility] Address: [address] [place] [address] Performed By: #### 5 7-4, 57060-4 ####[facility] LABCLIA [id number] [place] [address] [place] ENTEROTOXIGENIC E. COLI (ETEC) DNA Not detected Normal Not Detected [facility] Comment on above: Order Comment: Speci men Type: STOOL SPECIMENOrdering Facility: [facility] Address: [address] [place] [address] Performed By: #### 5 4067-4, 75603-7 ####[facility] LABCLIA [id number] [place] [address] [place] G. lamblia DNA LA NENA+probe Ql (Unsp spec) Not detected Normal Not Detected [facility] Comment on above: Order Comment: Speci men Type: STOOL SPECIMENOrdering Facility: [facility] Address: [address] [place] [address] Performed By: #### 5 4067-4, 24930-8 ####[facility] LABCLIA [id number] [place] [address] [place] NOROVIRUS GI/GII RNA Not detected Normal Not Detected [facility] Comment on above: Order Comment: Speci men Type: STOOL SPECIMENOrdering Facility: [facility] Address: [address] [place] [address] Performed By: #### 5 7-4, 95907-9 ####[facility] LABCLIA [id number] [place] [address] [place] PLESIOMONAS SHIGELLOIDES DNA Not detected Normal Not Detected [facility] Comment on above: Order Comment: Speci men Type: STOOL SPECIMENOrdering Facility: [facility] Address: [address] [place] [address] Performed By: #### 5 4066-4, 93377-1 ####[facility] LABCLIA [id number] [place] [address] [place] ROTAVIRUS A RNA Not detected Normal Not Detected [facility] Comment on above: Order Comment: Speci men Type: STOOL SPECIMENOrdering Facility: [facility] Address: [address] [place] [address] Performed By: #### 5 4067-4, 53626-5 ####[facility] LABCLIA [id number] [place] [address] [place] Salmonella sp DNA LA NENA+probe Ql (Unsp spec) Not detected Normal Not Detected [facility] Comment on above: Order Comment: Speci men Type: STOOL SPECIMENOrdering Facility: [facility] Address: [address] [place] [address] Performed By: #### 5 4067-4, 23246-8 ####[facility] LABIA [id number] [place] [address] [place] SAPOVIRUS (GENOGROUPS I, II, IV, V) RNA Not detected Normal Not Detected [facility] Comment on above: Order Comment: Speci men Type: STOOL SPECIMENOrdering Facility: [facility] Address: [address] [place] [address] Performed By: #### 5 4067-4, 68451-4 ####[facility] LABIA [id number] [place] [address] [place] Shigella species+EIEC invasion plasmid antigen H ipaH gene LA NENA+probe Ql (Stl) Not detected Normal Not Detected [facility] Comment on above: Order Comment: Speci men Type: STOOL SPECIMENOrdering Facility: [facility] Address: [address] [place] [address] Performed By: #### 5 4067-4, 67191-0 ####[facility] LABIA [id number] [place] [address] [place] V. cholerae DNA LA NENA+probe Ql (Unsp spec) Not detected Normal Not Detected [facility] Comment on above: Order Comment: Speci men Type: STOOL SPECIMENOrdering Facility: [facility] Address: [address] [place] [address] Performed By: #### 5 4067-4, 26560-9 ####[facility] LABIA [id number] [place] [address] [place] Vibrio sp DNA LA NENA+probe Nom (Unsp spec) Not detected Normal Not Detected [facility] Comment on above: Order Comment: Speci men Type: STOOL SPECIMENOrdering Facility: [facility] Address: [address] [place] [address] Performed By: #### 5 4067-4, 36547-1 ####[facility] LABCLIA [id number] [place] [address] [place] Yersinia sp DNA LA NENA+probe Nom (Unsp spec) Not detected Normal Not Detected [facility] Comment on above: Order Comment: Speci men Type: STOOL SPECIMENOrdering Facility: [facility] Address: [address] [place] [address] Performed By: #### 5 4067-4, 33351-5 ####[facility] LABCLIA [id number] [place] [address] [place] No Panel Informationon 05-06 C difficile PCR Negative Normal [facility]; [facility] [employer] [facility] Work Phone: EX. STOOL GI PANEL BY PCR [CCL] Normal [facility] [employer] Work Phone: OVA AND PARASITE EXAM See Below Normal [facility] [employer] [facility] Work Phone: RESULT CRITICAL? NO Normal [facility]; [facility] [employer] Work Phone: O+P Spec Microon 05-06-2024 Ova and parasites identified LM Nom (Unsp spec) OVA AND PARASITE EXAM: No Parasites Seen Normal [facility] Comment on above: Performed By: #### 6 73-4 ####[facility] LABCLIA [id number] [place] [address] [place] Celiac Disease Profileon ENDOMYSIAL IGA Negative Normal Negative [facility] Comment on above: Performed By: #### L 3890.6200, L100.0100, L3400.8000, L3100.0460, L3890.6100, L500.4050, L3410.2400 ####[facility] [address] [place], [place], [id number] IMMUNOGLOB A QN 148 mg/dL Normal 90-386 [facility] Comment on above: Performed By: #### L 3890.6200, L100.0100, L3400.8000, L3100.0460, L3890.6100, L500.4050, L3410.2400 ####[facility] [address] [place], [place], [id number] tTG IGA <2 Normal 0-3 [facility] Comment on above: Result Comment: Nega tive 0 - 3 Weak Positive 4 - 10 Positive >10 Tissue Transglutaminase (tTG) has been identified as the endomysial antigen. Studies have demonstr- ated that endomysial IgA antibodies have over 99% specificity for gluten sensitive enteropathy. Performed By: #### L 3890.6200, L100.0100, L3400.8000, L3100.0460, L3890.6100, L500.4050, L3410.2400 ####[facility] [address] [place], [address] Hepatitis B Core Ab Totalon 05-05-2024 HEP B CORE,TOT Negative Normal Negative [facility] Comment on above: Result Comment: Perf ormed at: [facility] [address] [id number] Dip Dyer: Jae Jones PhD, Phone: [phone] Performed By: #### L 3890.6200, L100.0100, L3400.8000, L3100.0460, L3890.6100, L500.4050, L3410.2400 ####[facility] [address] [place], [address] Quantiferon TB-Gold+on 05-05 QFT MITOGEN KALI > 10.00 Normal . [facility] Comment on above: Performed By: #### L 3890.6200, L100.0100, L3400.8000, L3100.0460, L3890.6100, L500.4050, L3410.2400 ####[facility] [address] [place], [place], [id number] QFT NIL VALUE 0.01 IU/mL Normal . [facility] Comment on above: Performed By: #### L 3890.6200, L100.0100, L3400.8000, L3100.0460, L3890.6100, L500.4050, L3410.2400 ####[facility] [address] [place], [address] QFT TB GOLD+ Comment Normal . [facility] Comment on above: Result Comment: Juan [...] 3890.6200, L100.0100, L3400.8000, L3100.0460, L3890.6100, L500.4050, L3410.2400 ####[facility] [address] [place], [place], [address] QFT TB POS CRIT Negative Normal Negative [facility] Comment on above: Result Comment: No [...] 3890.6200, L100.0100, L3400.8000, L3100.0460, L3890.6100, L500.4050, L3410.2400 ####[facility] [address] [place], [address] QFT TB1+ AG KALI 0 IU/mL Normal . [facility] Comment on above: Performed By: #### L 3890.6200, L100.0100, L3400.8000, L3100.0460, L3890.6100, L500.4050, L3410.2400 ####[facility] [address] [place], [place], [address] QFT TB2+ AG KALI 0 IU/mL Normal . [facility] Comment on above: Performed By: #### L 3890.6200, L100.0100, L3400.8000, L3100.0460, L3890.6100, L500.4050, L3410.2400 ####[facility] [address] [place], [place], [phone] Absolute lymphocyte countOrd ered By: Josefina Sears on 05-03-2024 Lymphocytes Auto (Unsp spec) [#/Vol] 0.56 10*3/uL Low 0.83-4.51 [facility] Absolute neutrophil countOrd ered By: Josefina Sears on 05-03-2024 Neutrophils (Bld) [#/Vol] 5.9 10*3/uL 2.0-7.7 [facility] [facility] Albumin to globulin ratioOrd ered By: Josefina Sears on 05-03-2024 Albumin/Globulin [Mass ratio] 1.2 {ratio} 0.9-2.4 [facility] Automated lymphocyte count a s percentage of total leukocytesOrdered By: Josefina Sears on 05-03-2024 Lymphocytes/100 WBC Auto (Unsp spec) 7.9 % Low 19-41 [facility] Basophil percentageOrdered B y: Josefina Sears on 05-03-2024 Basophils/100 WBC (Bld) 0.6 % 0-1 [facility] Bilirubin, totalOrdered By: Josefina Sears on 05-03-2024 Bilirubin [Mass/Vol] 1.50 mg/dL High 0.20-1.00 [facility] Comment on above: For patients on eltr ombopag therapy, use of Dimension [place] TBIL is not recommended. Blood urea nitrogen (BUN)/cr eatinine ratioOrdered By: Josefina Sears on 05-03-2024 Urea nitrogen/Creatinine [Mass ratio] 8.4 mg/mg Low - [facility] CBC W/Diff, Automatedon 04-07 Absolute Lymph 0.56 X10 3/uL Low 0.83-4.51 [facility] Comment on above: Performed By: #### L 3890.6200, L100.0100, L3400.8000, L3100.0460, L3890.6100, L500.4050, L3410.2400 ####[facility] [address] [place], [address] Absolute Neut 5.9 X10 3/uL Normal 2.0-7.7 [facility] Comment on above: Performed By: #### L 3890.6200, L100.0100, L3400.8000, L3100.0460, L3890.6100, L500.4050, L3410.2400 ####[facility] [address] [place], [address] Basophils/100 WBC (Bld) 0.6 % Normal 0-1 [facility] Comment on above: Performed By: #### L 3890.6200, L100.0100, L3400.8000, L3100.0460, L3890.6100, L500.4050, L3410.2400 ####[facility] [address] [place], [address] Eosinophils/100 WBC (Bld) 2.4 % Normal 0-5 [facility] Comment on above: Performed By: #### L 3890.6200, L100.0100, L3400.8000, L3100.0460, L3890.6100, L500.4050, L3410.2400 ####[facility] [address] [place], [address] Erythrocyte distribution width (RBC) [Ratio] 13.6 % Normal 11.6-14.6 [facility] Comment on above: Performed By: #### L 3890.6200, L100.0100, L3400.8000, L3100.0460, L3890.6100, L500.4050, L3410.2400 ####[facility] [address] [place], [address] Hematocrit (Bld) [Volume fraction] 41.6 % Normal 40-54 [facility] Comment on above: Performed By: #### L 3890.6200, L100.0100, L3400.8000, L3100.0460, L3890.6100, L500.4050, L3410.2400 ####[facility] [address] [place], [address] Hemoglobin (Bld) [Mass/Vol] 13.7 g/dL Normal 13.0-16.5 [facility] Comment on above: Performed By: #### L 3890.6200, L100.0100, L3400.8000, L3100.0460, L3890.6100, L500.4050, L3410.2400 ####[facility] [address] [place], [address] IG% 0.300 Normal 0.0-0.9 [facility] Comment on above: Result Comment: IG% - Immature Granulocytes (promyelocytes, myelocytes and metamyelocytes) > 1% indicates that a LEFT SHIFT is Present. Performed By: #### L 3890.6200, L100.0100, L3400.8000, L3100.0460, L3890.6100, L500.4050, L3410.2400 ####[facility] [address] [place], [address] Lymphocytes/100 WBC (Bld) 7.9 % Low 19-41 [facility] Comment on above: Performed By: #### L 3890.6200, L100.0100, L3400.8000, L3100.0460, L3890.6100, L500.4050, L3410.2400 ####[facility] [address] [place], [address] MCH (RBC) [Entitic mass] 27.6 pg Normal 27.0-32.0 [facility] Comment on above: Performed By: #### L 3890.6200, L100.0100, L3400.8000, L3100.0460, L3890.6100, L500.4050, L3410.2400 ####[facility] [address] [place], [address] MCHC (RBC) [Mass/Vol] 32.9 g/dL Normal 32-36 [facility] Comment on above: Performed By: #### L 3890.6200, L100.0100, L3400.8000, L3100.0460, L3890.6100, L500.4050, L3410.2400 ####[facility] [address] [place], [address] MCV (RBC) [Entitic vol] 83.7 fL Normal 80-94 [facility] Comment on above: Performed By: #### L 3890.6200, L100.0100, L3400.8000, L3100.0460, L3890.6100, L500.4050, L3410.2400 ####[facility] [address] [place], [address] Monocytes/100 WBC (Bld) 6.7 % Normal 0-10 [facility] Comment on above: Performed By: #### L 3890.6200, L100.0100, L3400.8000, L3100.0460, L3890.6100, L500.4050, L3410.2400 ####[facility] [address] [place], [address] Neutrophils/100 WBC (Bld) 82.1 % High 47-70 [facility] Comment on above: Performed By: #### L 3890.6200, L100.0100, L3400.8000, L3100.0460, L3890.6100, L500.4050, L3410.2400 ####[facility] [address] [place], [address] Nucleated RBC (Bld) [#/Vol] 0 10*3/uL Normal 0-5 [facility] Comment on above: Performed By: #### L 3890.6200, L100.0100, L3400.8000, L3100.0460, L3890.6100, L500.4050, L3410.2400 ####[facility] [address] [place], [address] Platelet mean volume (Bld) [Entitic vol] 10.5 fL Normal 6.2-12.0 [facility] Comment on above: Performed By: #### L 3890.6200, L100.0100, L3400.8000, L3100.0460, L3890.6100, L500.4050, L3410.2400 ####[facility] [address] [place], [address] Platelets (Bld) [#/Vol] 234 10*3/uL Normal 150-450 [facility] Comment on above: Performed By: #### L 3890.6200, L100.0100, L3400.8000, L3100.0460, L3890.6100, L500.4050, L3410.2400 ####[facility] [address] [place], [address] RBC (Bld) [#/Vol] 4.97 10*6/uL Normal 4.6-6.2 [facility] Comment on above: Performed By: #### L 3890.6200, L100.0100, L3400.8000, L3100.0460, L3890.6100, L500.4050, L3410.2400 ####[facility] [address] [place], [address] RDW SD 41.6 fl Normal 35.1-43.9 [facility] Comment on above: Performed By: #### L 3890.6200, L100.0100, L3400.8000, L3100.0460, L3890.6100, L500.4050, L3410.2400 ####[facility] [address] [place], [address] WBC (Bld) [#/Vol] 7.1 10*3/uL Normal 4.4-11.0 [facility] Comment on above: Performed By: #### L 3890.6200, L100.0100, L3400.8000, L3100.0460, L3890.6100, L500.4050, L3410.2400 ####[facility] [address] [place], [place], [address] Calprotectin stoolOrdered By : Josefina Sears on 05-03-2024 Calprotectin stool 71 ug/g 0-120 [facility] Comment on above: Concentration Interp retation Follow-Up< 5 - 50 ug/g Normal None>50 -120 ug/g Borderline Re-evaluate in 4-6 weeks >120 ug/g Abnormal Repeat as clinically indicatedPerformed at: - [facility] [id number] Director: Jimbo Beauchamp MD, Phone: [phone] Stool Calprotectin 71 ug/g 0-120 [facility] Comment on above: Concentration Interp retation Follow-Up< 5 - 50 ug/g Normal None>50 -120 ug/g Borderline Re-evaluate in 4-6 weeks >120 ug/g Abnormal Repeat as clinically indicatedPerformed at: [facility] - [facility] [address] [place], [place] [id number] Director: Jimbo Beauchamp MD, Phone: [phone] Carbon dioxide measurementOr dered By: Josefina Sears on 05-03-2024 CO2 [Moles/Vol] 30.0 mmol/L 21.0-32.0 [facility] Chloride measurementOrdered By: Josefina Sears on 05-03-2024 Chloride [Moles/Vol] 103 mmol/L 98-107 [facility] Comprehensive Metabolic Prof ilon 05-03-2024 Albumin [Mass/Vol] 4.3 g/dL Normal 3.2-5.0 [facility] Comment on above: Performed By: #### L 3890.6200, L100.0100, L3400.8000, L3100.0460, L3890.6100, L500.4050, L3410.2400 ####[facility] [address] [place], [address] Albumin/Globulin [Mass ratio] 1.2 {ratio} Normal 0.9-2.4 [facility] Comment on above: Performed By: #### L 3890.6200, L100.0100, L3400.8000, L3100.0460, L3890.6100, L500.4050, L3410.2400 ####[facility] [address] [place], [place], [id number] ALK P 99 U/L Normal 45-117 [facility] Comment on above: Performed By: #### L 3890.6200, L100.0100, L3400.8000, L3100.0460, L3890.6100, L500.4050, L3410.2400 ####[facility] [address] [place], [address] ALT [Catalytic activity/Vol] 51 U/L Normal 16-61 [facility] Comment on above: Performed By: #### L 3890.6200, L100.0100, L3400.8000, L3100.0460, L3890.6100, L500.4050, L3410.2400 ####[facility] [address] [place], [address] AST [Catalytic activity/Vol] 22 U/L Normal 15-37 [facility] Comment on above: Performed By: #### L 3890.6200, L100.0100, L3400.8000, L3100.0460, L3890.6100, L500.4050, L3410.2400 ####[facility] [address] [place], [address] Bilirubin [Mass/Vol] 1.50 mg/dL High 0.20-1.00 [facility] Comment on above: Result Comment: For patients on eltrombopag therapy, use of Dimension [place] TBIL is not recommended. Performed By: #### L 3890.6200, L100.0100, L3400.8000, L3100.0460, L3890.6100, L500.4050, L3410.2400 ####[facility] [address] [place], [address] BUN/CRE 8.4 RATIO Low 10-20 [facility] Comment on above: Performed By: #### L 3890.6200, L100.0100, L3400.8000, L3100.0460, L3890.6100, L500.4050, L3410.2400 ####[facility] [address] [place], [address] CA,Total 9.7 mg/dL Normal 8.5-10.1 [facility] Comment on above: Performed By: #### L 3890.6200, L100.0100, L3400.8000, L3100.0460, L3890.6100, L500.4050, L3410.2400 ####[facility] [address] [place], [address] Chloride [Moles/Vol] 103 mmol/L Normal 98-107 [facility] Comment on above: Performed By: #### L 3890.6200, L100.0100, L3400.8000, L3100.0460, L3890.6100, L500.4050, L3410.2400 ####[facility] [address] [place], [address] CO2 [Moles/Vol] 30.0 mmol/L Normal 21.0-32.0 [facility] Comment on above: Performed By: #### L 3890.6200, L100.0100, L3400.8000, L3100.0460, L3890.6100, L500.4050, L3410.2400 ####[facility] [address] [place], [address] Creatinine [Mass/Vol] 0.83 mg/dL Normal 0.70-1.30 [facility] Comment on above: Result Comment: The validity of the calculated GFR GFRAA in patients over 70 years has not been determined. Clinical correlation is essential. Performed By: #### L 3890.6200, L100.0100, L3400.8000, L3100.0460, L3890.6100, L500.4050, L3410.2400 ####[facility] [address] [place], [address] EST GFR - AA 132 mL/min Normal >60 [facility] Comment on above: Result Comment: Afri can Vietnamese GFR Calc Performed By: #### L 3890.6200, L100.0100, L3400.8000, L3100.0460, L3890.6100, L500.4050, L3410.2400 ####[facility] [address] [place], [address] GAP 5 Normal 5-15 [facility] Comment on above: Performed By: #### L 3890.6200, L100.0100, L3400.8000, L3100.0460, L3890.6100, L500.4050, L3410.2400 ####[facility] [address] [place], [address] GFR/1.73 sq M.predicted among non-blacks MDRD (S/P/Bld) [Vol rate/Area] 109 mL/min/{1.73_m2} Normal >60 [facility] Comment on above: Result Comment: Non- GFR Calc Performed By: #### L 3890.6200, L100.0100, L3400.8000, L3100.0460, L3890.6100, L500.4050, L3410.2400 ####[facility] [address] [place], [address] Globulin (S) [Mass/Vol] 3.7 g/dL Normal 2.2-4.2 [facility] Comment on above: Performed By: #### L 3890.6200, L100.0100, L3400.8000, L3100.0460, L3890.6100, L500.4050, L3410.2400 ####[facility] [address] [place], [address] Glucose [Mass/Vol] 95 mg/dL Normal 74-106 [facility] Comment on above: Performed By: #### L 3890.6200, L100.0100, L3400.8000, L3100.0460, L3890.6100, L500.4050, L3410.2400 ####[facility] [address] [place], [address] Potassium [Moles/Vol] 3.2 mmol/L Low 3.5-5.1 [facility] Comment on above: Performed By: #### L 3890.6200, L100.0100, L3400.8000, L3100.0460, L3890.6100, L500.4050, L3410.2400 ####[facility] [address] [place], [address] Sodium [Moles/Vol] 138 mmol/L Normal 136-145 [facility] Comment on above: Performed By: #### L 3890.6200, L100.0100, L3400.8000, L3100.0460, L3890.6100, L500.4050, L3410.2400 ####[facility] [address] [place], [address] T PROT 8.0 g/dL Normal 6.4-8.2 [facility] Comment on above: Performed By: #### L 3890.6200, L100.0100, L3400.8000, L3100.0460, L3890.6100, L500.4050, L3410.2400 ####[facility] [address] [place], [address] Urea nitrogen [Mass/Vol] 7 mg/dL Normal 7-18 [facility] Comment on above: Performed By: #### L 3890.6200, L100.0100, L3400.8000, L3100.0460, L3890.6100, L500.4050, L3410.2400 ####[facility] [address] [place], [address] Endomysial IgA antibody assa yOrdered By: Josefina Sears on 05-03-2024 Endomysial IgA Antibody Negative Negative [facility] Eosinophil percentageOrdered By: Josefina Sears on 05-03-2024 Eosinophils/100 WBC (Bld) 2.4 % 0-5 [facility] Erythrocyte distribution wid th ratioOrdered By: Josefina Sears on 05-03-2024 Erythrocyte distribution width (RBC) [Ratio] 13.6 % 11.6-14.6 [facility] Erythrocyte distribution wid th standard deviationOrdered By: Josefina Sears on 05-03-2024 Erythrocyte distribution width (RBC) [Entitic vol] 41.6 fL 35.1-43.9 [facility] Erythrocyte distribution width (RBC) [Ratio] 41.6 fl 35.1-43.9 [facility] Estimated glomerular filtrat ion rate (GFR) AmericanOrdered By: Josefina Sears on 05-03-2024 Estimated GFR (MDRD) Amer 132 mL/min >60 [facility] Comment on above: GFR Calc Gastroenterology Visit Repor ton 05-03-2024 Gastroenterology Visit Report [facility] [address] [place] [address] OFFICE VISIT Date of Service: 05/03/24 MR#: [id number] Acct: [id number] Name: JAIR WARREN Rep #: [id number] : 1985 Provider: RENETTA ocampo Age/Sex: 38/M Location: [facility] Status: Signed Intake Vital Signs 05/03/24 15:05 Height 6 ft 2 in Weight: 204 lb 4 oz BMI 26.2 BP 148/102 H Respiration 16 Pulse 78 Pulse Oximetry (%) 98 Oxygen Delivery Method room air Intake Visit Reasons: Crohn's Chief Complaint: consult post admission Manager Of Human Resources Required: No Accompanied by: Is patient in [...] take the time to address the problem. 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 Normal [facility] Glomerular filtration rate ( GFR) estimationOrdered By: Josefina Sears on 05-03-2024 Estimated GFR (MDRD) Non-Af Amer 109 mL/min >60 [facility] Comment on above: Non- GFR Calc GFR/1.73 sq M.predicted among non-blacks MDRD (S/P/Bld) [Vol rate/Area] 109 mL/min/{1.73_m2} >60 [facility] Comment on above: Non- GFR Calc Glucose measurementOrdered B y: Josefina Sears on 05-03-2024 Glucose [Mass/Vol] 95 mg/dL 74-106 [facility] HBV core Ab Ql (S)Ordered By : Josefina Sears on 05-03-2024 Hepatitis B Core Total Antibody Negative Negative [facility] Comment on above: Performed at: - [facility] [id number] [place], [place] [id number] Director: Jae Jones PhD, Phone: [phone] HBV surface IgG Ql (S)Ordere d By: Josefina Sears on 05-03-2024 Hepatitis B Surface Antibody Reactive [facility] Comment on above: Non Reactive: Incons istent with immunity less than <10 mIU/mL Reactive: Consistent with immunity greater than or equal to 10 mIU/mL Hematocrit Auto (Bld) [Volum e fraction]Ordered By: Josefina Sears on 05-03-2024 Hematocrit (Bld) [Volume fraction] 41.6 % 40-54 [facility] Hemoglobin measurementOrdere d By: Josefina Sears on 05-03-2024 Hemoglobin (Bld) [Mass/Vol] 13.7 g/dL 13.0-16.5 [facility] Hepatitis B Surface Antibody on 05-03-2024 HEP B Surf Ab Reactive Normal [facility] Comment on above: Order Comment: Reaso n for Exam: Crohn's Result Comment: Non Reactive: Inconsistent with immunity less than <10 mIU/mL Reactive: Consistent with immunity greater than or equal to 10 mIU/mL Performed By: #### L 3890.6200, L100.0100, L3400.8000, L3100.0460, L3890.6100, L500.4050, L3410.2400 ####[facility] [address] [place], [place], [address] Hepatitis B Surface Antigeno n 05-03-2024 HEP B Surf Ag Non-Reactive Normal Nonreactive [facility] Comment on above: Order Comment: Reaso n for Exam: Crohn's Performed By: #### L 3890.6200, L100.0100, L3400.8000, L3100.0460, L3890.6100, L500.4050, L3410.2400 ####[facility] [address] [place], [address] Hepatitis B surface antigen detectionOrdered By: Josefina Sears on 05-03-2024 Hepatitis B Surface Antigen Non-Reactive Nonreactive [facility] IgA [Mass/Vol]Ordered By: Leo Sears on 05-03-2024 Immunoglobulin A 148 mg/dL 90-386 [facility] Immature granulocytes/100 WB C Auto (Bld)Ordered By: Josefina Sears on 05-03-2024 Immature granulocytes/100 WBC (Bld) 0.300 % 0.0-0.9 [facility] Comment on above: IG% - Immature Granu locytes (promyelocytes, myelocytes and metamyelocytes) > 1% indicates that a LEFT SHIFT is Present. Laboratory - Chemistry and C hemistry - challengeOrdered By: Josefina Sears on 05-03-2024 AST [Catalytic activity/Vol] 22 U/L 15-37 [facility] Lymphocytes Auto (Unsp spec) [#/Vol]Ordered By: Josefina Sears on 05-03-2024 Lymphocytes (Bld) [#/Vol] 0.56 10*3/uL Low 0.83-4.51 [facility] Lymphocytes/100 WBC Auto (Un sp spec)Ordered By: Josefina Sears on 05-03-2024 Lymphocytes/100 WBC (Bld) 7.9 % Low 19-41 [facility] M. tuberculosis tuberculin s celeste IFN-g Ql (Bld)Ordered By: Josefina Sears on 05-03-2024 TB Test (QFT) Antigen 1 0 IU/mL . [facility] MCV (mean corpuscular volume ) determinationOrdered By: Josefina Sears on 05-03-2024 MCV (RBC) [Entitic vol] 83.7 fL 80-94 [facility] Mean corpuscular hemoglobin (MCH) determinationOrdered By: Josefina Sears on 05-03-2024 MCH (RBC) [Entitic mass] 27.6 pg 27.0-32.0 [facility] Mean corpuscular hemoglobin concentration (MCHC) determinationOrdered By: Josefina Sears on 05-03-2024 MCHC (RBC) [Mass/Vol] 32.9 g/dL 32-36 [facility] Mean platelet volume determi nationOrdered By: Josefina Sears on 05-03-2024 Platelet mean volume (Bld) [Entitic vol] 10.5 fL 6.2-12.0 [facility] Monocyte percentageOrdered B y: Josefina Sears on 05-03-2024 Monocytes/100 WBC (Bld) 6.7 % 0-10 [facility] Neutrophil percentageOrdered By: Josefina Sears on 05-03-2024 Neutrophils/100 WBC (Bld) 82.1 % High 47-70 [facility] Nucleated red blood cell per centageOrdered By: Josefina Sears on 05-03-2024 Nucleated RBC/100 WBC (Bld) [Ratio] 0 % 0-5 [facility] Platelet countOrdered By: Leo Sears on 05-03-2024 Platelets (Bld) [#/Vol] 234 10*3/uL 150-450 [facility] Potassium measurementOrdered By: Josefina Sears on 05-03-2024 Potassium [Moles/Vol] 3.2 mmol/L Low 3.5-5.1 [facility] Qualitative QuantiFERON-TB g old in tube testOrdered By: Josefina Sears on 05-03-2024 M. tuberculosis tuberculin stim IFN-g Ql (Bld) 0 IU/mL . [facility] Quantiferon-TB Gold Plus rob tOrdered By: Josefina Sears on 05-03-2024 TB Test (QFT) Comment . [facility] Comment on above: QuantiFERON-TB Gold Plus [...] Test (QFT) Antigen 2 0 IU/mL . [facility] TB Test (QFT) Mitogen > 10.00 IU/mL . [facility] TB Test (QFT) Nil 0.01 IU/mL . [facility] TB Test (QFT) Positive Criteria Negative Negative [facility] Comment on above: No response to [...] 05-03-2024 RBC (Bld) [#/Vol] 4.97 10*6/uL 4.6-6.2 [facility] Serum anion gap measurementO rdered By: Josefina Sears on 05-03-2024 Anion gap [Moles/Vol] 5 mmol/L 5-15 [facility] Serum globulin measurementOr dered By: Josefina Sears on 05-03-2024 Globulin (S) [Mass/Vol] 3.7 g/dL 2.2-4.2 [facility] Serum hepatitis B virus core antibody detectionOrdered By: Josefina Sears on 05-03-2024 HBV core Ab Ql (S) Negative Negative [facility] Comment on above: Performed at: [place] [id number] Director: Jae Jones PhD, Phone: [phone] Serum hepatitis B virus surf mk antibody IgG detectionOrdered By: Josefina Sears on 05-03-2024 HBV surface IgG Ql (S) Reactive [facility] Comment on above: Non Reactive: Incons istent with immunity less than <10 mIU/mL Reactive: Consistent with immunity greater than or equal to 10 mIU/mL Serum or plasma IgA measurem ent (mass/volume)Ordered By: Josefina Sears on 05-03-2024 IgA [Mass/Vol] 148 mg/dL 90-386 [facility] Serum or plasma alanine garcia otransferase (ALT) measurementOrdered By: Josefina Sears on 05-03-2024 ALT [Catalytic activity/Vol] 51 U/L 16-61 [facility] Serum or plasma albumin jazmin urement (mass/volume)Ordered By: Josefina Sears on 05-03-2024 Albumin [Mass/Vol] 4.3 g/dL 3.2-5.0 [facility] Serum or plasma alkaline dar sphatase measurementOrdered By: Josefina Sears on 05-03-2024 ALP [Catalytic activity/Vol] 99 U/L 45-117 [facility] Serum or plasma calcium jazmin urement (mass/volume)Ordered By: Josefina Sears on 05-03-2024 Calcium [Mass/Vol] 9.7 mg/dL 8.5-10.1 [facility] Serum or plasma creatinine m easurement (mass/volume)Ordered By: Josefina Sears on 05-03-2024 Creatinine [Mass/Vol] 0.83 mg/dL 0.70-1.30 [facility] Comment on above: The validity of the calculated GFR & GFRAA in patients over 70 years has not been determined. Clinical correlation is essential. Serum or plasma urea nitroge n measurement (mass/volume)Ordered By: Josefina Sears on 05-03-2024 Urea nitrogen [Mass/Vol] 7 mg/dL 7-18 [facility] Serum tissue transglutaminas e (tTG) IgA antibody assay (units/volume)Ordered By: Josefina Sears on 05-03-2024 tTG IgA Qn (S) <2 U/mL 0-3 [facility] Comment on above: Negative 0 - 3 Weak Positive 4 - 10 Positive >10 Tissue Transglutaminase (tTG) has been identified as the endomysial antigen. Studies have demonstr- ated that endomysial IgA antibodies have over 99% specificity for gluten sensitive enteropathy. Sodium levelOrdered By: Chantel Sears on 05-03-2024 Sodium [Moles/Vol] 138 mmol/L 136-145 [facility] Total proteinOrdered By: Rebeakh Sears on 05-03-2024 Protein [Mass/Vol] 8.0 g/dL 6.4-8.2 [facility] White blood cell (WBC) count Ordered By: Josefina Sears on 05-03-2024 WBC (Bld) [#/Vol] 7.1 10*3/uL 4.4-11.0 [facility] tTG IgA Qn (S)Ordered By: Leo Sears on 05-03-2024 Tissue Transglutaminase IgA Ab <2 U/mL 0-3 [facility] Comment on above: Negative 0 - 3 Weak Positive 4 - 10 Positive >10 Tissue Transglutaminase (tTG) has been identified as the endomysial antigen. Studies have demonstr- ated that endomysial IgA antibodies have over 99% specificity for gluten sensitive enteropathy. OPERATIVE PROCEDURESon 04-02 OPERATIVE PROCEDURES [facility] OPERATIVE REPORT NAME ACCOUNT SEX AGE ADMIT DISCHARGE PT MED. RECORD# NUMBER DATE DATE TYPE JAIR WARREN [id number] Adilene 38 03/21/24 Nirmal HAMEED [id number] ROOM: 309 DATE OF : 1985 DICTATING PHYSICIAN: Jennifer Warren DATE OF SURGERY: March 21, 2024 SURGEON: Jennifer Warren MD HELP DESK REPRESENTATIVE: DINAH Yoder ANESTHESIOLOGIST: Sanjuanita Ayala CRNA/Denver Haile CRNA ANESTHETIC: PREOPERATIVE DIAGNOSIS: POSTOPERATIVE DIAGNOSES: 1. Abdominal pain. 2. Appendicitis with perforation and peritonitis. 3. Large right lower quadrant phlegmon at the ileocecal area. 4. Dense adhesions. 5. Diverticulosis. 6. Diverticulitis. 7. Colonic polyps. 8. Sigmoid perforation. OPERATION PERFORMED: Exploratory laparoscopy, exploratory laparotomy, lysis of dense adhesions, oversewing sigmoid enterotomy, ileocecal resection, and jeso-tv-vkkc anastomosis. COMPLICATIONS: ESTIMATED BLOOD LOSS: 75 mL. DRAIN: #10 Erik-Roy to Hemovac suction (2), 1/4 inch fenestrated [place] drain to incision site (2). Johnson catheter [...] WARREN Operat (more content not included)... Normal [facility] Basic metabolic 2000 panelon 03-29-2024 Anion gap [Moles/Vol] 11 mmol/L Normal 8-15 [facility] Comment on above: Order Comment: Speci men Type: BLOOD SPECIMENOrdering Facility: [facility] Address: [address] [place] [address] Performed By: #### 2 777-1, , ####[facility] LABCLIA [id number] [place] [address] [place] Calcium [Mass/Vol] 9.6 mg/dL Normal 8.5-10.2 [facility] Comment on above: Order Comment: Speci men Type: BLOOD SPECIMENOrdering Facility: [facility] Address: [address] [place] [address] Performed By: #### 2 777-1, , ####[facility] LABCLIA [id number] [place] [id number] [place] Chloride [Moles/Vol] 101 mmol/L Normal 98-107 [facility] Comment on above: Order Comment: Speci men Type: BLOOD SPECIMENOrdering Facility: [facility] Address: [address] [place] [address] Performed By: #### 2 777-1, , ####[facility] LABCLIA [id number] [place] [id number] [place] CO2 [Moles/Vol] 26 mmol/L Normal 22-30 [facility] Comment on above: Order Comment: Mohiti jnes Type: BLOOD SPECIMENOrdering Facility: [facility] Address: [address] [place] [address] Performed By: #### 2 777-1, , ####[facility] LABCLIA [id number] [place] [address] [place] Creatinine [Mass/Vol] 0.91 mg/dL Normal 0.73-1.22 [facility] Comment on above: Order Comment: Speci men Type: BLOOD SPECIMENOrdering Facility: [facility] Address: [address] [place] [address] Performed By: #### 2 777-1, , ####[facility] LABCLIA [id number] [place] [address] [place] Creatinine and Glomerular filtration rate.predicted panel (S/P/Bld) 111 mL/min/1.73m??? Normal >=60 [facility] Comment on above: Order Comment: Klaus colindres Type: BLOOD SPECIMENOrdering Facility: [facility] Address: [address] [place] [address] Result Comment: Codie mated Glomerular Filtration Rate [...] GFR. Performed By: #### 2 777-1, , ####[facility] LABCLIA [id number] [place] [id number] [place] Glucose [Mass/Vol] 100 mg/dL High 74-99 [facility] Comment on above: Order Comment: Speci men Type: BLOOD SPECIMENOrdering Facility: [facility] Address: [address] [place], [place] [address] Result Comment: The [place] [employer] (ADA) provides guidance for cutoff [...] Standards of Medical Care in Diabetes 2016, [employer]. Diabetes Care. 2016.39(Suppl 1). Performed By: #### 2 777-1, , 52827-9 ####[facility] LABCLIA [id number] [place] [address] [place] Potassium [Moles/Vol] 3.9 mmol/L Normal 3.7-5.1 [facility] Comment on above: Order Comment: Speci men Type: BLOOD SPECIMENOrdering Facility: [facility] Address: [address] [place], [place] [address] Performed By: #### 2 777-1, , ####[facility] LABCLIA [id number] [place] [address] [place] Sodium [Moles/Vol] 138 mmol/L Normal 136-144 [facility] Comment on above: Order Comment: Speci men Type: BLOOD SPECIMENOrdering Facility: [facility] Address: [address] [place] [address] Performed By: #### 2 777-1, , ####[facility] LABCLIA [id number] [place] [id number] [place] Urea nitrogen [Mass/Vol] 9 mg/dL Normal 9-24 [facility] Comment on above: Order Comment: Speci men Type: BLOOD SPECIMENOrdering Facility: [facility] Address: [address] [place] [address] Performed By: #### 2 777-1, 32810-2, 81983-8 ####[facility] LABCLIA [id number] [place] [address] [place] CBC panel Auto (Bld)on 03-29 Erythrocyte distribution width (RBC) [Ratio] 12.9 % Normal 11.5-15.0 [facility] Comment on above: Order Comment: Speci men Type: BLOOD SPECIMENOrdering Facility: [facility] Address: [address] [place] [address] Performed By: #### 5 8410-2 ####[facility] LABIA [id number] [place] [address] [place] Hematocrit (Bld) [Volume fraction] 37.0 % Low 39.0-51.0 [facility] Comment on above: Order Comment: Speci men Type: BLOOD SPECIMENOrdering Facility: [facility] Address: [address] [place] [address] Performed By: #### 5 8410-2 ####[facility] LABCLIA [id number] [place] [address] [place] Hemoglobin (Bld) [Mass/Vol] 11.8 g/dL Low 13.0-17.0 [facility] Comment on above: Order Comment: Speci men Type: BLOOD SPECIMENOrdering Facility: [facility] Address: [address] [place] [address] Performed By: #### 5 8410-2 ####[facility] LABIA [id number] [place] [address] [place] MCH (RBC) [Entitic mass] 26.9 pg Normal 26.0-34.0 [facility] Comment on above: Order Comment: Speci men Type: BLOOD SPECIMENOrdering Facility: [facility] Address: [address] [place] [address] Performed By: #### 5 8410-2 ####[facility] LABCLIA [id number] [place] [address] [place] MCHC (RBC) [Mass/Vol] 31.9 g/dL Normal 30.5-36.0 [facility] Comment on above: Order Comment: Speci men Type: BLOOD SPECIMENOrdering Facility: [facility] Address: [address] [place] [address] Performed By: #### 5 8410-2 ####[facility] LABCLIA [id number] [place] [address] [place] MCV (RBC) [Entitic vol] 84.3 fL Normal 80.0-100.0 [facility] Comment on above: Order Comment: Speci men Type: BLOOD SPECIMENOrdering Facility: [facility] Address: [address] [place] [address] Performed By: #### 5 8410-2 ####[facility] LABIA [id number] [place] [address] [place] Nucleated RBC (Bld) [#/Vol] 10*3/uL Normal <0.01 [facility] Comment on above: Order Comment: Speci men Type: BLOOD SPECIMENOrdering Facility: [facility] Address: [address] [place] [address] Performed By: #### 5 8410-2 ####[facility] LABCLIA [id number] [place] [address] [place] Platelet mean volume (Bld) [Entitic vol] 10.0 fL Normal 9.0-12.7 [facility] Comment on above: Order Comment: Speci men Type: BLOOD SPECIMENOrdering Facility: [facility] Address: [address] [place] [address] Performed By: #### 5 8410-2 ####[facility] LABCLIA [id number] [place] [address] [place] Platelets (Bld) [#/Vol] 304 10*3/uL Normal 150-400 [facility] Comment on above: Order Comment: Speci men Type: BLOOD SPECIMENOrdering Facility: [facility] Address: [address] [place] [address] Performed By: #### 5 8410-2 ####[facility] LABIA [id number] [place] [address] [place] RBC (Bld) [#/Vol] 4.39 10*6/uL Normal 4.20-6.00 [facility] Comment on above: Order Comment: Speci men Type: BLOOD SPECIMENOrdering Facility: [facility] Address: [address] [place] [address] Performed By: #### 5 8410-2 ####[facility] LABIA [id number] [place] [address] [place] WBC (Bld) [#/Vol] 9.40 10*3/uL Normal 3.70-11.00 [facility] Comment on above: Order Comment: Speci men Type: BLOOD SPECIMENOrdering Facility: [facility] Address: [address] [place] [address] Performed By: #### 5 8410-2 ####[facility] [id number] [place] [address] [place] CNDSon 03-29-2024 CNDS HNO ID: [id number] Author: LLOYD MYERS MD Service: Colorectal Author [...] progressive post-operatively as expected. 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 Normal [facility] Magnesium [facility] 03-29 Magnesium [Mass/Vol] 2.4 mg/dL High 1.7-2.3 [facility] Comment on above: Order Comment: Speci men Type: BLOOD SPECIMENOrdering Facility: [facility] Address: [address] [place] [address] Performed By: #### 2 777-1, 71461-4, 49958-9 ####[facility] LABCLIA [id number] [place] [address] [place] Phosphate [facility] 03-29 Phosphate [Mass/Vol] 3.3 mg/dL Normal 2.7-4.8 [facility] Comment on above: Order Comment: Speci men Type: BLOOD SPECIMENOrdering Facility: [facility] Address: [address] [place] [address] Performed By: #### 2 777-1, 63742-4, 86689-6 ####[facility] LABCLIA [id number] [place] [address] [place] Basic metabolic 2000 panelon 03-28-2024 Anion gap [Moles/Vol] 16 mmol/L High 8-15 [facility] Comment on above: Order Comment: Speci men Type: BLOOD SPECIMENOrdering Facility: [facility] Address: [address] [place] [address] Performed By: #### 1 9123-9, 01627-4, 2777-1 ####[facility] LABCLIA [id number] [place] [address] [place] Calcium [Mass/Vol] 9.5 mg/dL Normal 8.5-10.2 [facility] Comment on above: Order Comment: Speci men Type: BLOOD SPECIMENOrdering Facility: [facility] Address: [address] [place] [address] Performed By: #### 1 9123-9, 87564-3, 2776- ####[facility] LABCLIA [id number] [place] [address] [place] Chloride [Moles/Vol] 102 mmol/L Normal 98-107 [facility] Comment on above: Order Comment: Speci men Type: BLOOD SPECIMENOrdering Facility: [facility] Address: [address] [place] [address] Performed By: #### 1 9123-9, 43933-8, 2776- ####[facility] LABCLIA [id number] [place] [address] [place] CO2 [Moles/Vol] 20 mmol/L Low 22-30 [facility] Comment on above: Order Comment: Speci men Type: BLOOD SPECIMENOrdering Facility: [facility] Address: [address] [place] [address] Performed By: #### 1 9123-9, 56039-1, 2776-04 ####[facility] LABIA [id number] [place] [address] [place] Creatinine [Mass/Vol] 0.81 mg/dL Normal 0.73-1.22 [facility] Comment on above: Order Comment: Speci men Type: BLOOD SPECIMENOrdering Facility: [facility] Address: [address] [place] [address] Performed By: #### 1 9123-9, 74298-5, 2776-04 ####[facility] LABIA [id number] [place] [address] [place] Creatinine and Glomerular filtration rate.predicted panel (S/P/Bld) 116 mL/min/1.73m??? Normal >=60 [facility] Comment on above: Order Comment: Speci men Type: BLOOD SPECIMENOrdering Facility: [facility] Address: [address] [place] [address] Result Comment: Codie mated Glomerular Filtration Rate [...] actual GFR. Performed By: #### 1 9123-9, 06972-8, 2776-04 ####[facility] LABCLIA [id number] [place] [address] [place] Glucose [Mass/Vol] 92 mg/dL Normal 74-99 [facility] Comment on above: Order Comment: Specmanny men Type: BLOOD SPECIMENOrdering Facility: [facility] Address: [address] [place] [address] Result Comment: The [place] [employer] (ADA) provides guidance for cutoff [...] Standards of Medical Care in Diabetes 2016, [place] [employer]. Diabetes Care. 2016.39(Suppl 1). Performed By: #### 1 9123-9, 34915-1, 2776-04 ####[facility] LABCLIA [id number] [place] [id number] [place] Potassium [Moles/Vol] 3.7 mmol/L Normal 3.7-5.1 [facility] Comment on above: Order Comment: Speci men Type: BLOOD SPECIMENOrdering Facility: [facility] Address: [address] [place] [address] Performed By: #### 1 9123-9, 05554-1, 2777-1 ####[facility] LABCLIA [id number] [place] [address] [place] Sodium [Moles/Vol] 138 mmol/L Normal 136-144 [facility] Comment on above: Order Comment: Speci men Type: BLOOD SPECIMENOrdering Facility: [facility] Address: [address] [place] [address] Performed By: #### 1 9123-9, 29306-3, 277- ####[facility] LABCLIA [id number] [place] [address] [place] Urea nitrogen [Mass/Vol] 10 mg/dL Normal 9-24 [facility] Comment on above: Order Comment: Speci men Type: BLOOD SPECIMENOrdering Facility: [facility] Address: [address] [place] [address] Performed By: #### 1 9123-9, 32257-1, 27710-04 ####[facility] LABCLIA [id number] [place] [address] [place] CBC panel Auto (Bld)on 03-28 Erythrocyte distribution width (RBC) [Ratio] 12.7 % Normal 11.5-15.0 [facility] Comment on above: Order Comment: Speci men Type: BLOOD SPECIMENOrdering Facility: [facility] Address: [address] [place] [address] Performed By: #### 5 8410-2 ####[facility] LABCLIA [id number] [place] [id number] [place] Hematocrit (Bld) [Volume fraction] 37.0 % Low 39.0-51.0 [facility] Comment on above: Order Comment: Speci men Type: BLOOD SPECIMENOrdering Facility: [facility] Address: [address] [place] [address] Performed By: #### 5 8410-2 ####[facility] LABIA [id number] [place] [address] [place] Hemoglobin (Bld) [Mass/Vol] 12.2 g/dL Low 13.0-17.0 [facility] Comment on above: Order Comment: Speci men Type: BLOOD SPECIMENOrdering Facility: [facility] Address: [address] [place] [address] Performed By: #### 5 8410-2 ####[facility] LABIA [id number] [place] [address] [place] MCH (RBC) [Entitic mass] 27.6 pg Normal 26.0-34.0 [facility] Comment on above: Order Comment: Speci men Type: BLOOD SPECIMENOrdering Facility: [facility] Address: [address] [place] [address] Performed By: #### 5 8410-2 ####[facility] [id number] [place] [address] [place] MCHC (RBC) [Mass/Vol] 33.0 g/dL Normal 30.5-36.0 [facility] Comment on above: Order Comment: Speci men Type: BLOOD SPECIMENOrdering Facility: [facility] Address: [address] [place] [address] Performed By: #### 5 8410-2 ####[facility] LABIA [id number] [place] [address] [place] MCV (RBC) [Entitic vol] 83.7 fL Normal 80.0-100.0 [facility] Comment on above: Order Comment: Speci men Type: BLOOD SPECIMENOrdering Facility: [facility] Address: [address] [place] [address] Performed By: #### 5 8410-2 ####[facility] LABIA [id number] [place] [address] [place] Nucleated RBC (Bld) [#/Vol] 10*3/uL Normal <0.01 [facility] Comment on above: Order Comment: Speci men Type: BLOOD SPECIMENOrdering Facility: [facility] Address: [address] [place] [address] Performed By: #### 5 8410-2 ####[facility] LABCLIA [id number] [place] [address] [place] Platelet mean volume (Bld) [Entitic vol] 9.9 fL Normal 9.0-12.7 [facility] Comment on above: Order Comment: Speci men Type: BLOOD SPECIMENOrdering Facility: [facility] Address: [address] [place] [address] Performed By: #### 5 8410-2 ####[facility] LABCLIA [id number] [place] [address] [place] Platelets (Bld) [#/Vol] 324 10*3/uL Normal 150-400 [facility] Comment on above: Order Comment: Speci men Type: BLOOD SPECIMENOrdering Facility: [facility] Address: [address] [place] [address] Performed By: #### 5 8410-2 ####[facility] LABCLIA [id number] [place] [address] [place] RBC (Bld) [#/Vol] 4.42 10*6/uL Normal 4.20-6.00 [facility] Comment on above: Order Comment: Speci men Type: BLOOD SPECIMENOrdering Facility: [facility] Address: [address] [place] [address] Performed By: #### 5 8410-2 ####[facility] LABCLIA [id number] [place] [address] [place] WBC (Bld) [#/Vol] 9.80 10*3/uL Normal 3.70-11.00 [facility] Comment on above: Order Comment: Speci men Type: BLOOD SPECIMENOrdering Facility: [facility] Address: [address] [place] [address] Performed By: #### 5 8410-2 ####[facility] LABCLIA [id number] [place] [address] [place] Magnesium [facility] 03-28 Magnesium [Mass/Vol] 2.4 mg/dL High 1.7-2.3 [facility] Comment on above: Order Comment: Speci men Type: BLOOD SPECIMENOrdering Facility: [facility] Address: [address] [place] [address] Performed By: #### 1 9123-9, 50161-9, 2777-1 ####[facility] LABCLIA [id number] [place] [address] [place] Phosphate SerPl-ncon 03-28 Phosphate [Mass/Vol] 3.1 mg/dL Normal 2.7-4.8 [facility] Comment on above: Order Comment: Speci men Type: BLOOD SPECIMENOrdering Facility: [facility] Address: [address] [place] [address] Performed By: #### 1 9123-9, 10302-2, 2777- ####[facility] LABIA [id number] [place] [address] [place] Basic metabolic 2000 panelon 03-27-2024 Anion gap [Moles/Vol] 14 mmol/L Normal 8-15 [facility] Comment on above: Order Comment: Speci men Type: BLOOD SPECIMENOrdering Facility: [facility] Address: [address] [place] [address] Performed By: #### 2 4321-2, 10114-6, 2777-1 ####[facility] LABCLIA [id number] [place] [id number] [place] Calcium [Mass/Vol] 9.2 mg/dL Normal 8.5-10.2 [facility] Comment on above: Order Comment: Speci men Type: BLOOD SPECIMENOrdering Facility: [facility] Address: [address] [place] [address] Performed By: #### 2 4321-2, , 2776-04 ####[facility] LABCLIA [id number] [place] [id number] [place] Chloride [Moles/Vol] 101 mmol/L Normal 98-107 [facility] Comment on above: Order Comment: Speci men Type: BLOOD SPECIMENOrdering Facility: [facility] Address: [address] [place] [address] Performed By: #### 2 4321-2, , 2776-04 ####[facility] [facility] [id number] [place] [address] [place] CO2 [Moles/Vol] 22 mmol/L Normal 22-30 [facility] Comment on above: Order Comment: Speci men Type: BLOOD SPECIMENOrdering Facility: [facility] Address: [address] [place] [address] Performed By: #### 2 4321-2, , 2776-04 ####[facility] LABCLIA [id number] [place] [address] [place] Creatinine [Mass/Vol] 0.84 mg/dL Normal 0.73-1.22 [facility] Comment on above: Order Comment: Speci men Type: BLOOD SPECIMENOrdering Facility: [facility] Address: [address] [place] [address] Performed By: #### 2 4321-2, , 2776-04 ####[facility] LABCLIA [id number] [place] [address] [place] Creatinine and Glomerular filtration rate.predicted panel (S/P/Bld) 114 mL/min/1.73m??? Normal >=60 [facility] Comment on above: Order Comment: Speci men Type: BLOOD SPECIMENOrdering Facility: [facility] Address: [address] [place] [address] Result Comment: Codie mated Glomerular Filtration Rate [...] actual GFR. Performed By: #### 2 4321-2, , 2776-04 ####[facility] LABIA [id number] [place] [address] [place] Glucose [Mass/Vol] 89 mg/dL Normal 74-99 [facility] Comment on above: Order Comment: Klaus colindres Type: BLOOD SPECIMENOrdering Facility: [facility] Address: [address] [place] [address] Result Comment: The [place] Diabetes Association (ADA) provides guidance for cutoff [...] Standards of Medical Care in Diabetes 2016, [employer]. Diabetes Care. 2016.39(Suppl 1). Performed By: #### 2 4321-2, , 2776-04 ####[facility] LABIA [id number] [place] [address] [place] Potassium [Moles/Vol] 3.8 mmol/L Normal 3.7-5.1 [facility] Comment on above: Order Comment: Klaus colindres Type: BLOOD SPECIMENOrdering Facility: [facility] Address: [address] [place] [address] Performed By: #### 2 4321-2, 30166-0, 2777-1 ####[facility] LABIA [id number] [place] [address] [place] Sodium [Moles/Vol] 137 mmol/L Normal 136-144 [facility] Comment on above: Order Comment: Speci men Type: BLOOD SPECIMENOrdering Facility: [facility] Address: [address] [place] [address] Performed By: #### 2 4321-2, 77982-5, 2776-04 ####[facility] LABIA [id number] [place] [address] [place] Urea nitrogen [Mass/Vol] 11 mg/dL Normal 9-24 [facility] Comment on above: Order Comment: Speci men Type: BLOOD SPECIMENOrdering Facility: [facility] Address: [address] [place] [address] Performed By: #### 2 4321-2, , 27710-04 ####[facility] LABIA [id number] [place] [address] [place] CBC panel Auto (Bld)on 03-27 Erythrocyte distribution width (RBC) [Ratio] 12.4 % Normal 11.5-15.0 [facility] Comment on above: Order Comment: Speci men Type: BLOOD SPECIMENOrdering Facility: [facility] Address: [address] [place] [address] Performed By: #### 5 8410-2 ####[facility] LABIA [id number] [place] [address] [place] Hematocrit (Bld) [Volume fraction] 34.1 % Low 39.0-51.0 [facility] Comment on above: Order Comment: Speci men Type: BLOOD SPECIMENOrdering Facility: [facility] Address: [address] [place] [address] Performed By: #### 5 8410-2 ####[facility] LABIA [id number] [place] [address] [place] Hemoglobin (Bld) [Mass/Vol] 11.5 g/dL Low 13.0-17.0 [facility] Comment on above: Order Comment: Speci men Type: BLOOD SPECIMENOrdering Facility: [facility] Address: [address] [place] [address] Performed By: #### 5 8410-2 ####[facility] LABIA [id number] [place] [address] [place] MCH (RBC) [Entitic mass] 28.4 pg Normal 26.0-34.0 [facility] Comment on above: Order Comment: Speci men Type: BLOOD SPECIMENOrdering Facility: [facility] Address: [address] [place] [address] Performed By: #### 5 8410-2 ####[facility] LABIA [id number] [address] [place] MCHC (RBC) [Mass/Vol] 33.7 g/dL Normal 30.5-36.0 [facility] Comment on above: Order Comment: Speci men Type: BLOOD SPECIMENOrdering Facility: [facility] Address: [address] [place] [address] Performed By: #### 5 8410-2 ####[facility] LABIA [id number] [place] [address] [place] MCV (RBC) [Entitic vol] 84.2 fL Normal 80.0-100.0 [facility] Comment on above: Order Comment: Speci men Type: BLOOD SPECIMENOrdering Facility: [facility] Address: [address] [place] [address] Performed By: #### 5 8410-2 ####[facility] LABIA [id number] [place] [address] [place] Nucleated RBC (Bld) [#/Vol] 10*3/uL Normal <0.01 [facility] Comment on above: Order Comment: Speci men Type: BLOOD SPECIMENOrdering Facility: [facility] Address: [address] [place] [address] Performed By: #### 5 8410-2 ####[facility] LABCLIA [id number] [place] [address] [place] Platelet mean volume (Bld) [Entitic vol] 9.9 fL Normal 9.0-12.7 [facility] Comment on above: Order Comment: Speci men Type: BLOOD SPECIMENOrdering Facility: [facility] Address: [address] [place] [address] Performed By: #### 5 8410-2 ####[facility] LABCLIA [id number] [place] [address] [place] Platelets (Bld) [#/Vol] 274 10*3/uL Normal 150-400 [facility] Comment on above: Order Comment: Speci men Type: BLOOD SPECIMENOrdering Facility: [facility] Address: [address] [place] [address] Performed By: #### 5 8410-2 ####[facility] LABCLIA [id number] [place] [address] [place] RBC (Bld) [#/Vol] 4.05 10*6/uL Low 4.20-6.00 [facility] Comment on above: Order Comment: Speci men Type: BLOOD SPECIMENOrdering Facility: [facility] Address: [address] [place] [address] Performed By: #### 5 8410-2 ####[facility] LABCLIA [id number] [place] [address] [place] WBC (Bld) [#/Vol] 8.50 10*3/uL Normal 3.70-11.00 [facility] Comment on above: Order Comment: Speci men Type: BLOOD SPECIMENOrdering Facility: [facility] Address: [address] [place] [address] Performed By: #### 5 8410-2 ####[facility] LABCLIA [id number] [id number] [address] [place] CT ABD/PEL W IVCONon 024 CT ABD/PEL W IVCON * * *Final Report* * * DATE OF EXAM: Mar 27 2024 6:49PM [facility] [place] [facility] [place]BD/PEL W IVCON / PROCEDURE REASON: Peritonitis or perforation suspected * * * * Physician Interpretation * * * * EXAMINATION: CT ABDOMEN AND PELVIS WITH IV CONTRAST CLINICAL HISTORY: 38y male admitted from [facility] with concern for sigmoid colon perforation status [...] identified extra luminal contrast or organized collection. Development Consultant: PSCB Transcribe Date/Time: Mar 27 2024 7:39P Dictated by : MYLENE GARY MD This examination was interpreted and the report reviewed and electronically signed by: MYLENE GARY MD on Mar 27 2024 7:54PM EST [id number] Normal [facility] Magnesium [facility] 03-27 Magnesium [Mass/Vol] 2.3 mg/dL Normal 1.7-2.3 [facility] Comment on above: Order Comment: Speci men Type: BLOOD SPECIMENOrdering Facility: [facility] Address: [address] [place] [address] Performed By: #### 2 4321-2, , 2776-04 ####[facility] LABCLIA [id number] [place] [address] [place] Phosphate SerPl-ncon 03-27 Phosphate [Mass/Vol] 3.5 mg/dL Normal 2.7-4.8 [facility] Comment on above: Order Comment: Speci men Type: BLOOD SPECIMENOrdering Facility: [facility] Address: [address] [place] [address] Performed By: #### 2 4321-2, , 2776-04 ####[facility] LABCLIA [id number] [place] [address] [place] Basic metabolic 2000 panelon 03-26-2024 Anion gap [Moles/Vol] 11 mmol/L Normal 8-15 [facility] Comment on above: Order Comment: Speci men Type: BLOOD SPECIMENOrdering Facility: [facility] Address: [address] [place] [id number] Performed By: #### 2 4321-2, ####[facility] LABCLIA [id number] [address] [address] [place] Calcium [Mass/Vol] 8.6 mg/dL Normal 8.5-10.2 [facility] Comment on above: Order Comment: Speci men Type: BLOOD SPECIMENOrdering Facility: [facility] Address: [address] [place] [address] Performed By: #### 2 4321-2, ####[facility] LABCLIA [id number] [place] [address] [place] Chloride [Moles/Vol] 103 mmol/L Normal 98-107 [facility] Comment on above: Order Comment: Speci men Type: BLOOD SPECIMENOrdering Facility: [facility] Address: [address] [place], [place] [address] Performed By: #### 2 4320-2, ####[facility] LABCLIA [id number] [place] [address] [place] CO2 [Moles/Vol] 23 mmol/L Normal 22-30 [facility] Comment on above: Order Comment: Speci men Type: BLOOD SPECIMENOrdering Facility: [facility] Address: [address] [place] [id number] Performed By: #### 2 4321-2, ####[facility] LABCLIA [id number] [place] [address] [place] Creatinine [Mass/Vol] 0.87 mg/dL Normal 0.73-1.22 [facility] Comment on above: Order Comment: Speci men Type: BLOOD SPECIMENOrdering Facility: [facility] Address: [address] [place] [address] Performed By: #### 2 4321-2, ####[facility] LABIA [id number] [place] [address] [place] Creatinine and Glomerular filtration rate.predicted panel (S/P/Bld) 113 mL/min/1.73m??? Normal >=60 [facility] Comment on above: Order Comment: Klaus colindres Type: BLOOD SPECIMENOrdering Facility: [facility] Address: [address] [place] [address] Result Comment: Codie mated Glomerular Filtration Rate [...] reflect actual GFR. Performed By: #### 2 4320-, ####[facility] LABIA [id number] [place] [address] [place] Glucose [Mass/Vol] 102 mg/dL High 74-99 [facility] Comment on above: Order Comment: Klaus colindres Type: BLOOD SPECIMENOrdering Facility: [facility] Address: [address] [place] [address] Result Comment: The [place] Diabetes Association (ADA) provides guidance for cutoff [...] Standards of Medical Care in Diabetes 2016, [place] [employer]. Diabetes Care. 2016.39(Suppl 1). Performed By: #### 2 4320-2, ####[facility] LABCLIA [id number] [address] [address] [place] Potassium [Moles/Vol] 3.8 mmol/L Normal 3.7-5.1 [facility] Comment on above: Order Comment: Speci men Type: BLOOD SPECIMENOrdering Facility: [facility] Address: [address] [place] [address] Performed By: #### 2 432-2, ####[facility] LABCLIA [id number] [place] [address] [place] Sodium [Moles/Vol] 137 mmol/L Normal 136-144 [facility] Comment on above: Order Comment: Speci men Type: BLOOD SPECIMENOrdering Facility: [facility] Address: [address] [place] [address] Performed By: #### 2 4320-05, ####[facility] LABIA [id number] [place] [address] [place] Urea nitrogen [Mass/Vol] 11 mg/dL Normal 9-24 [facility] Comment on above: Order Comment: Speci men Type: BLOOD SPECIMENOrdering Facility: [facility] Address: [address] [place] [address] Performed By: #### 2 2, ####[facility] LABCLIA [id number] [place] [address] [place] CBC panel Auto (Bld)on 03-26 Erythrocyte distribution width (RBC) [Ratio] 12.3 % Normal 11.5-15.0 [facility] Comment on above: Order Comment: Speci men Type: BLOOD SPECIMENOrdering Facility: [facility] Address: [address] [place] [address] Performed By: #### 5 8410-2 ####[facility] LABCLIA [id number] [place] [address] [place] Hematocrit (Bld) [Volume fraction] 34.7 % Low 39.0-51.0 [facility] Comment on above: Order Comment: Speci men Type: BLOOD SPECIMENOrdering Facility: [facility] Address: [address] [place] [address] Performed By: #### 5 8410-2 ####[facility] LABIA [id number] [place] [address] [place] Hemoglobin (Bld) [Mass/Vol] 11.7 g/dL Low 13.0-17.0 [facility] Comment on above: Order Comment: Speci men Type: BLOOD SPECIMENOrdering Facility: [facility] Address: [address] [place] [address] Performed By: #### 5 8410-2 ####[facility] LABCLIA [id number] [place] [address] [place] MCH (RBC) [Entitic mass] 28.5 pg Normal 26.0-34.0 [facility] Comment on above: Order Comment: Speci men Type: BLOOD SPECIMENOrdering Facility: [facility] Address: [address] [place] [address] Performed By: #### 5 8410-2 ####[facility] LABIA [id number] [place] [address] [place] MCHC (RBC) [Mass/Vol] 33.7 g/dL Normal 30.5-36.0 [facility] Comment on above: Order Comment: Speci men Type: BLOOD SPECIMENOrdering Facility: [facility] Address: [address] [place] [address] Performed By: #### 5 8410-2 ####[facility] LABCLIA [id number] [place] [address] [place] MCV (RBC) [Entitic vol] 84.4 fL Normal 80.0-100.0 [facility] Comment on above: Order Comment: Speci men Type: BLOOD SPECIMENOrdering Facility: [facility] Address: [address] [place] [address] Performed By: #### 5 8410-2 ####[facility] LABCLIA [id number] [place] [address] [place] Nucleated RBC (Bld) [#/Vol] 10*3/uL Normal <0.01 [facility] Comment on above: Order Comment: Speci men Type: BLOOD SPECIMENOrdering Facility: [facility] Address: [address] [place] [address] Performed By: #### 5 8410-2 ####[facility] LABIA [id number] [place] [address] [place] Platelet mean volume (Bld) [Entitic vol] 10.1 fL Normal 9.0-12.7 [facility] Comment on above: Order Comment: Speci men Type: BLOOD SPECIMENOrdering Facility: [facility] Address: [address] [place] [address] Performed By: #### 5 8410-2 ####[facility] LABIA [id number] [place] [address] [place] Platelets (Bld) [#/Vol] 234 10*3/uL Normal 150-400 [facility] Comment on above: Order Comment: Speci men Type: BLOOD SPECIMENOrdering Facility: [facility] Address: [address] [place] [address] Performed By: #### 5 8410-2 ####[facility] LABIA [id number] [place] [address] [place] RBC (Bld) [#/Vol] 4.11 10*6/uL Low 4.20-6.00 [facility] Comment on above: Order Comment: Speci men Type: BLOOD SPECIMENOrdering Facility: [facility] Address: [address] [place] [address] Performed By: #### 5 8410-2 ####[facility] LABCLIA [id number] [address] [address] [place] WBC (Bld) [#/Vol] 7.23 10*3/uL Normal 3.70-11.00 [facility] Comment on above: Order Comment: Speci men Type: BLOOD SPECIMENOrdering Facility: [facility] Address: [address] [place], [place] [address] Performed By: #### 5 8410-2 ####[facility] LABCLIA [id number] [place] [address] [place] Magnesium SerPl-mCncon 03-26 Magnesium [Mass/Vol] 2.3 mg/dL Normal 1.7-2.3 [facility] Comment on above: Order Comment: Speci men Type: BLOOD SPECIMENOrdering Facility: [facility] Address: [address] [place] [address] Performed By: #### 2 4321-2, 20195-2 ####[facility] LABIA [id number] [place] [address] [place] Basic metabolic 2000 panelon 03-25-2024 Anion gap [Moles/Vol] 10 mmol/L Normal 8-15 [facility] Comment on above: Order Comment: Speci men Type: BLOOD SPECIMENOrdering Facility: [facility] Address: [address] [place], [place] [address] Performed By: #### 2 777-1, 47820-0, 21699-0 ####[facility] LABIA [id number] [place] [address] [place] Calcium [Mass/Vol] 8.5 mg/dL Normal 8.5-10.2 [facility] Comment on above: Order Comment: Speci men Type: BLOOD SPECIMENOrdering Facility: [facility] Address: [address] [place] [address] Performed By: #### 2 777-1, 15261-5, ####[facility] LABCLIA [id number] [address] [address] [place] Chloride [Moles/Vol] 103 mmol/L Normal 98-107 [facility] Comment on above: Order Comment: Speci men Type: BLOOD SPECIMENOrdering Facility: [facility] Address: [address] [place] [address] Performed By: #### 2 777-1, 94302-7, ####[facility] LABIA [id number] [place] [id number] [place] CO2 [Moles/Vol] 25 mmol/L Normal 22-30 [facility] Comment on above: Order Comment: Speci men Type: BLOOD SPECIMENOrdering Facility: [facility] Address: [address] [place] [address] Performed By: #### 2 777-1, 55529-7, ####[facility] LABIA [id number] [address] [address] [place] Creatinine [Mass/Vol] 0.83 mg/dL Normal 0.73-1.22 [facility] Comment on above: Order Comment: Speci men Type: BLOOD SPECIMENOrdering Facility: [facility] Address: [address] [place] [address] Performed By: #### 2 777-1, 54952-0, ####[facility] LABIA [id number] [address] [address] [place] Creatinine and Glomerular filtration rate.predicted panel (S/P/Bld) 115 mL/min/1.73m??? Normal >=60 [facility] Comment on above: Order Comment: Speci men Type: BLOOD SPECIMENOrdering Facility: [facility] Address: [address] [place] [address] Result Comment: Codie mated Glomerular Filtration Rate [...] actual GFR. Performed By: #### 2 777-1, 92411-3, ####[facility] LABCLIA [id number] [address] [address] [place] Glucose [Mass/Vol] 92 mg/dL Normal 74-99 [facility] Comment on above: Order Comment: Speci men Type: BLOOD SPECIMENOrdering Facility: [facility] Address: [address] [place] [address] Result Comment: The [place] Diabetes Association (ADA) provides guidance for cutoff [...] Standards of Medical Care in Diabetes 2016, [place] [employer]. Diabetes Care. 2016.39(Suppl 1). Performed By: #### 2 777-1, , ####[facility] LABIA [id number] [address] [address] [place] Potassium [Moles/Vol] 3.7 mmol/L Normal 3.7-5.1 [facility] Comment on above: Order Comment: Klaus colindres Type: BLOOD SPECIMENOrdering Facility: [facility] Address: [address] [place] [address] Performed By: #### 2 777-1, 22782-9, ####[facility] LABCLIA [id number] [place] [address] [place] Sodium [Moles/Vol] 138 mmol/L Normal 136-144 [facility] Comment on above: Order Comment: Speci men Type: BLOOD SPECIMENOrdering Facility: [facility] Address: [address] [place] [address] Performed By: #### 2 777-1, 65930-5, ####[facility] LABCLIA [id number] [place] [address] [place] Urea nitrogen [Mass/Vol] 10 mg/dL Normal 9-24 [facility] Comment on above: Order Comment: Speci men Type: BLOOD SPECIMENOrdering Facility: [facility] Address: [address] [place] [address] Performed By: #### 2 777-1, 09011-5, ####[facility] LABCLIA [id number] [place] [address] [place] CBC panel Auto (Bld)on 03-25 Erythrocyte distribution width (RBC) [Ratio] 12.4 % Normal 11.5-15.0 [facility] Comment on above: Order Comment: Speci men Type: BLOOD SPECIMENOrdering Facility: [facility] Address: [address] [place] [address] Performed By: #### 5 8410-2 ####[facility] LABCLIA [id number] [place] [address] [place] Hematocrit (Bld) [Volume fraction] 35.8 % Low 39.0-51.0 [facility] Comment on above: Order Comment: Speci men Type: BLOOD SPECIMENOrdering Facility: [facility] Address: [address] [place] [address] Performed By: #### 5 8410-2 ####[facility] LABCLIA [id number] [place] [address] [place] Hemoglobin (Bld) [Mass/Vol] 11.7 g/dL Low 13.0-17.0 [facility] Comment on above: Order Comment: Speci men Type: BLOOD SPECIMENOrdering Facility: [facility] Address: [address] [place] [address] Performed By: #### 5 8410-2 ####[facility] LABCLIA [id number] [place] [address] [place] MCH (RBC) [Entitic mass] 28.1 pg Normal 26.0-34.0 [facility] Comment on above: Order Comment: Speci men Type: BLOOD SPECIMENOrdering Facility: [facility] Address: [address] [place] [address] Performed By: #### 5 8410-2 ####[facility] LABCLIA [id number] [place] [address] [place] MCHC (RBC) [Mass/Vol] 32.7 g/dL Normal 30.5-36.0 [facility] Comment on above: Order Comment: Speci men Type: BLOOD SPECIMENOrdering Facility: [facility] [facility] Address: [address] [place] [address] Performed By: #### 5 8410-2 ####[facility] LABIA [id number] [place] [address] [place] MCV (RBC) [Entitic vol] 85.9 fL Normal 80.0-100.0 [facility] Comment on above: Order Comment: Speci men Type: BLOOD SPECIMENOrdering Facility: [facility] Address: [address] [place] [address] Performed By: #### 5 8410-2 ####[facility] LABCLIA [id number] [place] [address] [place] Nucleated RBC (Bld) [#/Vol] 10*3/uL Normal <0.01 [facility] Comment on above: Order Comment: Speci men Type: BLOOD SPECIMENOrdering Facility: [facility] Address: [address] [place] [address] Performed By: #### 5 8410-2 ####[facility] LABCLIA [id number] [place] [address] [place] Platelet mean volume (Bld) [Entitic vol] 10.4 fL Normal 9.0-12.7 [facility] Comment on above: Order Comment: Speci men Type: BLOOD SPECIMENOrdering Facility: [facility] Address: [address] [place] [address] Performed By: #### 5 8410-2 ####[facility] LABIA [id number] [place] [address] [place] Platelets (Bld) [#/Vol] 238 10*3/uL Normal 150-400 [facility] Comment on above: Order Comment: Speci men Type: BLOOD SPECIMENOrdering Facility: [facility] Address: [address] [place] [address] Performed By: #### 5 8410-2 ####[facility] LABIA [id number] [place] [address] [place] RBC (Bld) [#/Vol] 4.17 10*6/uL Low 4.20-6.00 [facility] Comment on above: Order Comment: Speci men Type: BLOOD SPECIMENOrdering Facility: [facility] Address: [address] [place] [address] Performed By: #### 5 8410-2 ####[facility] LABCLIA [id number] [place] [address] [place] WBC (Bld) [#/Vol] 8.40 10*3/uL Normal 3.70-11.00 [facility] Comment on above: Order Comment: Speci men Type: BLOOD SPECIMENOrdering Facility: [facility] Address: [address] [place] [address] Performed By: #### 5 8410-2 ####[facility] LABCLIA [id number] [place] [address] [place] Magnesium SerPl-ncon 03-25 Magnesium [Mass/Vol] 2.3 mg/dL Normal 1.7-2.3 [facility] Comment on above: Order Comment: Speci men Type: BLOOD SPECIMENOrdering Facility: [facility] Address: [address] [place] [address] Performed By: #### 2 777-1, 11785-3, 68348-3 ####[facility] LABIA [id number] [place] [address] [place] Phosphate SerPl-mCncon 03-25 Phosphate [Mass/Vol] 2.9 mg/dL Normal 2.7-4.8 [facility] Comment on above: Order Comment: Speci men Type: BLOOD SPECIMENOrdering Facility: [facility] Address: [address] [place] [address] Performed By: #### 2 777-1, 34952-8, ####[facility] LABIA [id number] [place] [address] [place] CBC panel Auto (Bld)on 03-24 Erythrocyte distribution width (RBC) [Ratio] 12.5 % Normal 11.5-15.0 [facility] Comment on above: Order Comment: Speci men Type: BLOOD SPECIMENOrdering Facility: [facility] Address: [address] [place] [address] Performed By: #### 5 8410-2 ####[facility] LABIA [id number] [place] [address] [place] Hematocrit (Bld) [Volume fraction] 34.4 % Low 39.0-51.0 [facility] Comment on above: Order Comment: Speci men Type: BLOOD SPECIMENOrdering Facility: [facility] Address: [address] [place] [address] Performed By: #### 5 8410-2 ####[facility] LABIA [id number] [place] [address] [place] Hemoglobin (Bld) [Mass/Vol] 11.0 g/dL Low 13.0-17.0 [facility] Comment on above: Order Comment: Speci men Type: BLOOD SPECIMENOrdering Facility: [facility] Address: [address] [place] [address] Performed By: #### 5 8410-2 ####[facility] LABIA [id number] [place] [address] [place] MCH (RBC) [Entitic mass] 28.2 pg Normal 26.0-34.0 [facility] Comment on above: Order Comment: Speci men Type: BLOOD SPECIMENOrdering Facility: [facility] Address: [address] [place] [address] Performed By: #### 5 8410-2 ####[facility] LABIA [id number] [place] [address] [place] MCHC (RBC) [Mass/Vol] 32.0 g/dL Normal 30.5-36.0 [facility] Comment on above: Order Comment: Speci men Type: BLOOD SPECIMENOrdering Facility: [facility] Address: [address] [place] [address] Performed By: #### 5 8410-2 ####[facility] LABIA [id number] [place] [address] [place] MCV (RBC) [Entitic vol] 88.2 fL Normal 80.0-100.0 [facility] Comment on above: Order Comment: Speci men Type: BLOOD SPECIMENOrdering Facility: [facility] Address: [address] [place] [address] Performed By: #### 5 8410-2 ####[facility] LABIA [id number] [place] [address] [place] Nucleated RBC (Bld) [#/Vol] 10*3/uL Normal <0.01 [facility] Comment on above: Order Comment: Speci men Type: BLOOD SPECIMENOrdering Facility: [facility] Address: [address] [place] [address] Performed By: #### 5 8410-2 ####[facility] LABCLIA [id number] [place] [address] [place] Platelet mean volume (Bld) [Entitic vol] 10.3 fL Normal 9.0-12.7 [facility] Comment on above: Order Comment: Speci men Type: BLOOD SPECIMENOrdering Facility: [facility] Address: [address] [place] [address] Performed By: #### 5 8410-2 ####[facility] LABCLIA [id number] [place] [address] [place] Platelets (Bld) [#/Vol] 186 10*3/uL Normal 150-400 [facility] Comment on above: Order Comment: Speci men Type: BLOOD SPECIMENOrdering Facility: [facility] Address: [address] [place] [address] Performed By: #### 5 8410-2 ####[facility] LABCLIA [id number] [place] [address] [place] RBC (Bld) [#/Vol] 3.90 10*6/uL Low 4.20-6.00 [facility] Comment on above: Order Comment: Speci men Type: BLOOD SPECIMENOrdering Facility: [facility] Address: [address] [place] [address] Performed By: #### 5 8410-2 ####[facility] LABCLIA [id number] [place] [address] [place] WBC (Bld) [#/Vol] 8.01 10*3/uL Normal 3.70-11.00 [facility] Comment on above: Order Comment: Speci men Type: BLOOD SPECIMENOrdering Facility: [facility] Address: [address] [place] [address] Performed By: #### 5 8410-2 ####[facility] LABCLIA [id number] [place] [address] [place] CONFIRM BLOOD TYPEon 024 ABO AB Normal [facility] Comment on above: Order Comment: Speci men Type: BLOOD SPECIMENOrdering Facility: [facility] Address: [address] [place] [address] Performed By: #### C ONABO ####[facility] BLOOD BANKCLIA [id number] [place] [address] [place] Rh Nom (Bld) Negative Normal [facility] Comment on above: Order Comment: Speci men Type: BLOOD SPECIMENOrdering Facility: [facility] Address: [address] [place] [address] Performed By: #### C ONABO ####[facility] BLOOD BANKCLIA [id number] [place] [address] [place] CRP SerPl-ncon 03-24-2024 CRP [Mass/Vol] 14.9 mg/dL High <0.9 [facility] Comment on above: Order Comment: Speci men Type: BLOOD SPECIMENOrdering Facility: [facility] Address: [address] [place] [address] Performed By: #### 1 988-5, 84905-7, 2777-1, 39189-6 ####[facility] LABCLIA [id number] [place] [address] [place] ABD/PEL W IVCONon 024 CT ABD/PEL W IVCON * * *Final Report* * * DATE OF EXAM: Mar 24 2024 12:46PM [facility] [facility] [place] ABD/PEL W IVCON / [...] pneumoperitoneum likely postsurgical. Small bilateral pleural effusions. Development Consultant: KIRA Transcribe Date/Time: Mar 24 2024 12:54P Dictated by : VIANEY HASTINGS DO This examination was interpreted and the report reviewed and electronically signed by: MELINDA SMITH MD on Mar 24 2024 3:45PM EST [id number] Normal [facility] Comprehensive metabolic 2000 panelon 03-24-2024 Albumin [Mass/Vol] 2.8 g/dL Low 3.9-4.9 [facility] Comment on above: Order Comment: Speci men Type: BLOOD SPECIMENOrdering Facility: [facility] Address: [address] [place] [address] Performed By: #### 1 988-5, 18800-2, 2777, 04958-9 ####[facility] LABCLIA [id number] [place] [address] [place] ALP [Catalytic activity/Vol] 61 U/L Normal 38-113 [facility] Comment on above: Order Comment: Speci men Type: BLOOD SPECIMENOrdering Facility: [facility] Address: [address] [place] [address] Performed By: #### 1 988-5, 71324-0, 277-, 32607-7 ####[facility] LABCLIA [id number] [place] [address] [place] ALT [Catalytic activity/Vol] 17 U/L Normal 10-54 [facility] Comment on above: Order Comment: Speci men Type: BLOOD SPECIMENOrdering Facility: [facility] Address: [address] [place] [address] Performed By: #### 1 988-5, 45996-2, 2777-, 55676-8 ####[facility] LABCLIA [id number] [address] [address] [place] Anion gap [Moles/Vol] 12 mmol/L Normal 8-15 [facility] Comment on above: Order Comment: Speci men Type: BLOOD SPECIMENOrdering Facility: [facility] Address: [address] [place] [address] Performed By: #### 1 988-5, 17641-1, 2777-, 82572-3 ####[facility] LABCLIA [id number] [address] [address] [place] AST [Catalytic activity/Vol] 19 U/L Normal 14-40 [facility] Comment on above: Order Comment: Speci men Type: BLOOD SPECIMENOrdering Facility: [facility] Address: [address] [place] [address] Performed By: #### 1 988-5, 82196-2, 277-, 07815-5 ####[facility] LABCLIA [id number] [place] [address] [place] Bilirubin [Mass/Vol] 1.3 mg/dL Normal 0.2-1.3 [facility] Comment on above: Order Comment: Speci men Type: BLOOD SPECIMENOrdering Facility: [facility] Address: [address] [place] [address] Performed By: #### 1 988-5, 09140-5, 27710-04, 27258-4 ####[facility] LABCLIA [id number] [address] [address] [place] Calcium [Mass/Vol] 8.5 mg/dL Normal 8.5-10.2 [facility] Comment on above: Order Comment: Speci men Type: BLOOD SPECIMENOrdering Facility: [facility] Address: [address] [place] [address] Performed By: #### 1 988-5, 43171-7, 2777-, 17435-7 ####[facility] LABCLIA [id number] [place] [address] [place] Chloride [Moles/Vol] 104 mmol/L Normal 98-107 [facility] Comment on above: Order Comment: Speci men Type: BLOOD SPECIMENOrdering Facility: [facility] Address: [address] [place] [address] Performed By: #### 1 988-5, 50227-4, 2777-, 30628-9 ####[facility] LABCLIA [id number] [place] [address] [place] CO2 [Moles/Vol] 19 mmol/L Low 22-30 [facility] Comment on above: Order Comment: Speci men Type: BLOOD SPECIMENOrdering Facility: [facility] Address: [address] [place] [address] Performed By: #### 1 988-5, 34672-9, 2777-, 85813-8 ####[facility] LABCLIA [id number] [place] [address] [place] Creatinine [Mass/Vol] 0.77 mg/dL Normal 0.73-1.22 [facility] Comment on above: Order Comment: Speci men Type: BLOOD SPECIMENOrdering Facility: [facility] Address: [address] [place] [address] Performed By: #### 1 988-5, 58369-6, 2777-, 50863-7 ####[facility] LABIA [id number] [place] [address] [place] Creatinine and Glomerular filtration rate.predicted panel (S/P/Bld) 118 mL/min/1.73m??? Normal >=60 [facility] Comment on above: Order Comment: Speci men Type: BLOOD SPECIMENOrdering Facility: [facility] Address: [address] [place] [address] Result Comment: Codie mated Glomerular Filtration Rate [...] actual GFR. Performed By: #### 1 988-5, 46942-6, 2776-04, ####[facility] LABCLIA [id number] [address] [address] [place] Glucose [Mass/Vol] 98 mg/dL Normal 74-99 [facility] Comment on above: Order Comment: Speci jens Type: BLOOD SPECIMENOrdering Facility: [facility] Address: [address] [place] [address] Result Comment: The [place] [employer] (ADA) provides guidance for cutoff [...] Standards of Medical Care in Diabetes 2016, [place] [employer]. Diabetes Care. 2016.39(Suppl 1). Performed By: #### 1 988-5, , 2776-04, ####[facility] LABCLIA [id number] [address] [address] [place] Potassium [Moles/Vol] 3.9 mmol/L Normal 3.7-5.1 [facility] Comment on above: Order Comment: Klaus colindres Type: BLOOD SPECIMENOrdering Facility: [facility] Address: [address] [place] [address] Performed By: #### 1 988-5, 96856-6, 2776-04, ####[facility] LABCLIA [id number] [place] [address] [place] Protein [Mass/Vol] 5.7 g/dL Low 6.3-8.0 [facility] Comment on above: Order Comment: Speci men Type: BLOOD SPECIMENOrdering Facility: [facility] Address: [address] [place] [address] Performed By: #### 1 988-5, 97349-3, 2777-1, 55202-6 ####[facility] LABIA [id number] [place] [address] [place] Sodium [Moles/Vol] 135 mmol/L Low 136-144 [facility] Comment on above: Order Comment: Speci men Type: BLOOD SPECIMENOrdering Facility: [facility] Address: [address] [place] [address] Performed By: #### 1 988-5, 96824-4, 2777-1, 55731-1 ####[facility] LABIA [id number] [place] [address] [place] Urea nitrogen [Mass/Vol] 8 mg/dL Low 9-24 [facility] Comment on above: Order Comment: Speci men Type: BLOOD SPECIMENOrdering Facility: [facility] Address: [address] [place] [address] Performed By: #### 1 988-5, 50379-2, 2777-1, 43059-1 ####[facility] LABIA [id number] [place] [address] [place] Final Surgical Pathology Rep [facility] 03-24-2024 Final Surgical Pathology Report . 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 Warren. COMMENT: [place] - [id number] CLINICAL INFORMATION: APPENDICITIS SPECIMEN: A ILEOCECAL JUNCTION GROSS DESCRIPTION: All parts labelled with patient name and [id number] Received labelled ileocecal junction is a right hemicolectomy with highly adhesed, [...] 5 possible lymph nodes Gretta Camacho, Pathologists' Historical Guide (ASCP) Performed by GRETTA CAMACHO MICROSCOPIC DESCRIPTION: The microscopic examination is performed, except in the case of Gross Only. Electronically Signed by Pathology Report verified by [facility] SHUKRI SERRATO MD Sign out Date: 03/24/2024 14:50 Performing Lab: [facility], [address] [place] [address] Pathology Dept Pathology Reports Accession: Collected Date/Time: Received Date/Time: Pathologist: [id number] 03/21/2024 19:56 EST 03/22/2024 14:21 MD SHUKRI OCASIO Disclaimer If ancillary studies were utilized, the following Laboratory Developed Test (LDT) disclaimer will apply: Under CLIA requirements, [facility] is qualified to perform high complexity testing. For all ancillary stains, positive and negative controls stain appropriately. Performance characteristics of immunohistochemical and chromogenic in-situ hybridization tests have been determined by [facility]. These tests are used for clinical purposes, They should not be regarded as investigational or for research. Normal [facility] Magnesium SerPl-mCncon 03-24 Magnesium [Mass/Vol] 2.1 mg/dL Normal 1.7-2.3 [facility] Comment on above: Order Comment: Speci men Type: BLOOD SPECIMENOrdering Facility: [facility] Address: [address] [place] [address] Performed By: #### 1 988-5, 31603-2, 2777-1, 67144-1 ####[facility] LABCLIA [id number] [place] [address] [place] Phosphate SerPl-ncon 03-24 Phosphate [Mass/Vol] 2.2 mg/dL Low 2.7-4.8 [facility] Comment on above: Order Comment: Speci men Type: BLOOD SPECIMENOrdering Facility: [facility] Address: [address] [place] [address] Performed By: #### 1 988-5, 88409-0, 2777-1, 63300-8 ####[facility] LABIA [id number] [place] [address] [place] Prealb SerPl-ncon 03-24-20 24 Prealbumin [Mass/Vol] 10 mg/dL Low 17-36 [facility] Comment on above: Order Comment: Speci men Type: BLOOD SPECIMENOrdering Facility: [facility] Address: [address] [place] [address] Performed By: #### 1 4338-8 ####[facility] LABCLIA [id number] [place] [address] [place] TYPE + SCREENon 03-24-2024 ABO AB Normal [facility] Comment on above: Order Comment: Speci men Type: BLOOD SPECIMENOrdering Facility: [facility] Address: [address] [place] [address] Performed By: #### T SCR ####[facility] BLOOD BANKCLIA [id number] [address] [place] Rh Nom (Bld) Negative Normal [facility] Comment on above: Order Comment: Speci men Type: BLOOD SPECIMENOrdering Facility: [facility] Address: [address] [place] [address] Performed By: #### T SCR ####[facility] BLOOD BANKIA [id number] [address] [place] TYPE AND SCREEN EXPIRATION 03/27/2024 23:59 Normal [facility] Comment on above: Order Comment: Speci men Type: BLOOD SPECIMENOrdering Facility: [facility] Address: [address] [place] [address] Performed By: #### T SCR ####[facility] BLOOD BANKIA [id number] [address] [place] CBC + DIFF DAILYon 4 Baso # 0.02 x10EE3/UL Normal 0.00 - 0.10 [facility] Comment on above: Performed By: #### 2 [address]2017 #### [address] [address] Basophils/100 WBC (Bld) 0.1 % Normal 0.0 - 2.0 % [facility].; [facility] Work Phone: Comment on above: Performed By: #### 2 32884 #### [facility],[address] [place] [address] CBC + DIFF DAILY Normal [facility] Comment on above: Result Comment: CBC- COMPLETE BLOOD COUNT Performed By: #### 2 34907 #### [facility],[address] [place], [place] [address] EO # 0.28 x10EE3/UL Normal 0.00 - 0.50 [facility] Comment on above: Performed By: #### 2 [address] #### [place] [id number] Eosinophils/100 WBC (Bld) 2.3 % Normal 0.0 - 7.0 % [facility], [facility] Work Phone: Comment on above: Performed By: #### 2 56515 #### [place] [address] Erythrocyte distribution width (RBC) [Ratio] 13.4 % Normal 12.0 - 15.6 % [facility].; [facility] Work Phone: Comment on above: Performed By: #### 2 [address] #### [place] [address] Hematocrit (Bld) [Volume fraction] 33.3 % Abnormal 40.0 - 52.0 % [facility], [employer] Work Phone: Comment on above: Performed By: #### 2 [address]67 #### [place] [id number] Hemoglobin (Bld) [Mass/Vol] 11.0 g/dL Abnormal 13.0 - 17.5 g/dL [facility].; [facility], [employer] Work Phone: Comment on above: Performed By: #### 2 [address]2862 #### [place] [id number] Lymph # 0.36 x10EE3/UL Low 0.80 - 2.80 [facility] Comment on above: Performed By: #### 2 64025 #### [address],[place] [address] Lymphocytes/100 WBC (Bld) 3.0 % Abnormal 20.0 - 45.0 % [facility]; [facility] Work Phone: Comment on above: Performed By: #### 2 [address] #### [place] [address] MANUAL DIFF REVIEWED Normal [facility]; [facility] Work Phone: Comment on above: Performed By: #### 2 [address] #### [place] [id number] MCH (RBC) [Entitic mass] 28 pg Normal 27 - [address] [facility]; [facility] Work Phone: Comment on above: Performed By: #### 2 [address] #### [place] [address] MCHC 33 X10 3 Normal 32 - 36 [facility] Comment on above: Performed By: #### 2 [address] #### [place] [id number] MCV (RBC) [Entitic vol] 86 fL Normal 81 - [address] [facility]; [facility] Work Phone: Comment on above: Performed By: #### 2 [address] #### [place] [id number] [place] # 0.72 x10EE3/UL Normal 0.20 - 1.00 [facility] Comment on above: Performed By: #### 2 [address] #### [place] [id number] MONOS % 6.1 % Normal 0.0 - 10.0 [facility] Comment on above: Performed By: #### 2 71965 #### [facility],[address] [place] [address] Morphology Douglas (Bld) [Interp] N/A Normal [facility].; [facility], [facility] Work Phone: Comment on above: Performed By: #### 2 48529 #### Community [facility] [place] [address]20 Neut # 10.44 x10EE3/UL High 1.50 - 7.10 [facility] Comment on above: Performed By: #### 2 75033 #### [facility],[address] [place] [address] 64743 Neutrophils/100 WBC (Bld) 88.4 % Abnormal 46.0 - 76.0 % [facility]; [facility], [facility] Work Phone: Comment on above: Performed By: #### 2 87426 #### [facility],[address] [place] [address] 14862 PLATELET 194 x10EE3/UL Normal 150 - 450 [facility] Comment on above: Performed By: #### 2 40759 #### [address] [address] Platelet mean volume (Bld) [Entitic vol] 8.1 fL Normal 6.4 - 10.5 fL [facility].; [facility] Work Phone: Comment on above: Result Comment: AUTO MATED DIFFERENTIAL Performed By: #### 2 06748 #### [facility],[address] [place] [address] 15640 RBC 3.87 x 10EE6/UL Low 4.50 - 6.00 [facility] Comment on above: Performed By: #### 2 38434 #### [facility] [place] [address] 82156 WBC 11.8 x 10EE3/UL High 4.5 - 10.8 [facility] Comment on above: Performed By: #### 2 82240 #### [facility],[address] [place] [address]122 CMP with eGFR - DAILYon 03-06 AGE 38 years Normal [facility] Comment on above: Performed By: #### 2 63813 #### [facility],[address] [place] [address] Albumin [Mass/Vol] 2.1 g/dL Abnormal 3.4 - 5.0 g/dL [facility].; [facility] Work Phone: Comment on above: Performed By: #### 2 92828 #### [facility],[address] [place], [place] [id number] Albumin/Globulin [Mass ratio] 0.6 {ratio} Low 0.9 - 1.6 [facility] Comment on above: Performed By: #### 2 18815 #### [facility],[address] [place] [address] 90007 ALK PHOS 51 U/L Normal 46 - 116 U/L [facility].; [facility]. Work Phone: Comment on above: Performed By: #### 2 23897 #### [facility],[address] [place] [address]150 ALT [Catalytic activity/Vol] 26 U/L Normal 16 - 63 U/L [facility].; [facility] [employer] [facility], [employer] Work Phone: Comment on above: Performed By: #### 2 16189 #### [facility],[address] [place] [address] 71768 Anion gap [Moles/Vol] 10 mmol/L Normal 10 - 2 0 mmol/L [facility].; [facility], Inc[facility] Work Phone: Comment on above: Performed By: #### 2 69878 #### [facility],[address] [place] [address] 45744 AST [Catalytic activity/Vol] 21 U/L Normal 15 - 37 U/L [facility], [facility].; [facility], [facility] Work Phone: Comment on above: Performed By: #### 2 83146 #### [facility],[address] [place] [address] 12074 B/C RATIO 9 ratio Normal 0 - 30 [facility] Comment on above: Performed By: #### 2 03642 #### [address] [address] Bilirubin [Mass/Vol] 2.3 mg/dL Abnormal 0.2 - 1 .0 mg/dL [facility], [facility].; [facility], [facility] Work Phone: Comment on above: Performed By: #### 2 26156 #### [address] [address] Calcium [Mass/Vol] 8.1 mg/dL Abnormal 8.5 - 10. 1 mg/dL [facility], Inc.; [facility], Inc[facility] Work Phone: Comment on above: Performed By: #### 2 14935 #### [facility],[address] [place] [address] 94773 Chloride [Moles/Vol] 106 mmol/L Normal 98 - 10 7 mmol/L [facility].; [facility], [facility] Work Phone: Comment on above: Performed By: #### 2 23463 #### [facility],[address] [place] [address] CMP with eGFR - DAILY Normal [facility] Comment on above: Result Comment: COMP REHENSIVE METABOLIC PANEL Performed By: #### 2 44421 #### [facility],[address] [place] [address] CO2 [Moles/Vol] 27.7 mmol/L Normal 21.0 - 32.0 mmol/L [facility]; [facility]. Work Phone: Comment on above: Performed By: #### 2 08724 #### [place] [address] Creatinine [Mass/Vol] 0.94 mg/dL Normal 0.70 - 1.30 mg/dL [facility]smV[facility] Imaging [facility]egen[facility] Medical CenterMomondo Group Limited; [facility]. Work Phone: Comment on above: Performed By: #### 2 66492 #### [place] [address] GFR/1.73 sq M.predicted among non-blacks MDRD (S/P/Bld) [Vol rate/Area] mL/min/{1.73_m2} Normal 60 - 999 [facility] Comment on above: Performed By: #### 2 44515 #### [place] [address] Result Comment: ACCO RDING TO THE NATIONAL KIDNEY DISEASE EDUCATION PROGRAM(NKDE), A NORMAL eGFR IS A VALUE GREATER THAN OR EQUAL TO 60 ML/MIN/1.73 SQ METERS. CHRONIC KIDNEY DISEASE: <60mL/MIN/1.73 SQ METERS KIDNEY FAILURE: <15mL/MIN/1.73 SQ METERS Globulin (S) [Mass/Vol] 3.3 g/dL Normal 1.5 - 3.8 g/dL [facility]; [facility]. Work Phone: Comment on above: Performed By: #### 2 84591 #### [place] [id number] Glucose [Mass/Vol] 101 mg/dL Normal 74 - 106 mg/dL [facility], [facility].; [facility], [employer] Work Phone: Comment on above: Performed By: #### 2 45985 #### [place] [address] Potassium [Moles/Vol] 3.8 mmol/L Normal 3.5 - 5.1 mmol/L [facility], [facility].; [facility], [facility] Work Phone: Comment on above: Performed By: #### 2 08780 #### [place] [address] Protein [Mass/Vol] 5.4 g/dL Abnormal 6.4 - 8.2 g/dL [facility], [facility].; [facility], [facility] Work Phone: Comment on above: Performed By: #### 2 61359 #### [place] [address] Sodium [Moles/Vol] 140 mmol/L Normal 136 - 145 mmol/L [facility], [facility].; [facility], [facility] Work Phone: Comment on above: Performed By: #### 2 85224 #### [address] [address] Urea nitrogen [Mass/Vol] 8 mg/dL Normal 7 - 18 mg/dL [facility], [facility].; [facility], [facility] Work Phone: Comment on above: Performed By: #### 2 17814 #### [place] [id number] HISTORY PHYSICALon 4 HISTORY PHYSICAL HNO ID: [id number] Author: ALIX NUNEZ MD Service: Colorectal Author [...] At this time pt was transferred to [facility]. On the exam pt is HDS. Abdomen [...] At this time pt was transferred to [facility]. Pt reports ongoing abdominal pain. Passing minimal [...] mg INTRAVENOUS DAILY (6 AM) phenol 1 Meally (CHLORASEPTIC) 1 Meally MUCOUS MEMBRANE (TOPICAL MOUTH AND THROAT) q [...] 23, 2024 TIME: 5:43 PM PAGER/CONTACT #: [phone] Normal [facility] Laboratory - Chemistry and C hemistry - challengeon 03-23-2024 Albumin [Mass/Vol] 0.6 g/dL Abnormal 0.9 - 1.6 [facility]; [facility] Work Phone: GFR/1.73 sq M.predicted among blacks MDRD (S/P/Bld) [Vol rate/Area] mL/min/{1.73_m2} Normal 60 - 999 {ML/MINUTE} [facility] CenterMom[facility]; [facility] Work Phone: GFR/1.73 sq M.predicted MDRD (S/P/Bld) [Vol rate/Area] mL/min/{1.73_m2} Normal 60 - 999 {ML/MINUTE} [facility]; [facility] Work Phone: Urea nitrogen/Creatinine [Mass ratio] 9 {ratio} Normal 0 - 30 {ratio} [facility]; [employer] [facility] Work Phone: Laboratory - Hematology and Cell countson 03-23-2024 Basophils (Bld) [#/Vol] 0.02 {x10EE3/UL} Normal 0.00 - 0.10 {x10EE3/UL} [facility]; [employer] [facility] Work Phone: Eosinophils (Bld) [#/Vol] 0.28 {x10EE3/UL} Normal 0.00 - 0.50 {x10EE3/UL} [facility]; [facility] [employer] [facility] Work Phone: Lymphocytes (Bld) [#/Vol] 0.36 {x10EE3/UL} Abnormal 0.80 - 2.80 {x10EE3/UL} [facility]; [facility] Work Phone: MCHC (RBC) [Mass/Vol] 33 {X10_3} Normal 32 - 3 6 {X10_3} [facility]; [facility] Work Phone: Monocytes (Bld) [#/Vol] 0.72 {x10EE3/UL} Normal 0.20 - 1.00 {x10EE3/UL} [facility]; [facility] Work Phone: Monocytes/100 WBC (Bld) 6.1 % Normal 0.0 - 10.0 % [facility]; [facility] Work Phone: Neutrophils (Bld) [#/Vol] 10.44 {x10EE3/UL} Abnormal 1.50 - 7.10 {x10EE3/UL} [facility]; [facility] Work Phone: Platelets (Bld) [#/Vol] 194 {x10EE3/UL} Normal 150 - 450 {x10EE3/UL} [facility]; [facility] Work Phone: RBC (Bld) [#/Vol] 3.87 {x_10EE6/UL} Abnormal 4.50 - 6.00 {x_10EE6/UL} [facility]; [facility] Work Phone: WBC (Bld) [#/Vol] 11.8 {x_10EE3/UL} Abnormal 4.5 - 10.8 {x_10EE3/UL} [facility].; [facility]. Work Phone: NURSING PROGon 03-23-2024 NURSING PROG HNO ID: [id number] Author: JOSE BALBUENA RN Service: ? Author [...] light in reach. Bed alarm on. Normal [facility] No Panel Informationon 03-23 AGE 38 {years} Normal [facility]; [facility] Work Phone: CBC + DIFF DAILY Normal [facility].; [facility]. Work Phone: CMP with eGFR - DAILY Normal [facility]; [facility] Work Phone: XR ABDOMEN 1V SUPINEon 03-23 [...] bowel in the included field of view. Development Consultant: KIRA Transcribe Date/Time: Mar 23 2024 11:41P Dictated by : JULIETTE CORTEZ DO This examination was interpreted and the report reviewed and electronically signed by: JULIETTE CORTEZ DO on Mar 23 2024 11:42PM EST [id number] Normal [facility] CBC + DIFF DAILYon 4 Baso # 0.03 x10EE3/UL Normal 0.00 - 0.10 [facility] Comment on above: Performed By: #### 2 49312 #### [facility],[address] [place] [address] Basophils/100 WBC (Bld) 0.2 % Normal 0.0 - 2.0 % [facility].; [facility], [employer] Work Phone: Comment on above: Performed By: #### 2 28514 #### [facility],[address] [place] [address] 73546 CBC + DIFF DAILY Normal [facility] Comment on above: Result Comment: CBC- COMPLETE BLOOD COUNT Performed By: #### 2 37601 #### [facility],[address] [place] [address] 40377 EO # 0.08 x10EE3/UL Normal 0.00 - 0.50 [facility] Comment on above: Performed By: #### 2 18200 #### [facility],[address] [place] [address] 28399 Eosinophils/100 WBC (Bld) 0.4 % Normal 0.0 - 7.0 % [facility].; [facility] [employer] [facility]. Work Phone: Comment on above: Performed By: #### 2 46789 #### [facility],[address] [place], [place] [id number] Erythrocyte distribution width (RBC) [Ratio] 12.9 % Normal 12.0 - 15.6 % [facility], [employer].; [facility] HospitalBios[facility]. Work Phone: Comment on above: Performed By: #### 2 93772 #### [facility],[address] [place], [place] [id number] Hematocrit (Bld) [Volume fraction] 34.9 % Abnormal 40.0 - 52.0 % [facility], [facility].; [facility], [employer] Work Phone: Comment on above: Performed By: #### 2 75871 #### [facility],[address] [place], [place] [address] Hemoglobin (Bld) [Mass/Vol] 11.7 g/dL Abnormal 13.0 - 17.5 g/dL [facility], [facility].; [facility], Inc[facility] Work Phone: Comment on above: Performed By: #### 2 11661 #### [place] [id number] Lymph # 0.37 x10EE3/UL Low 0.80 - 2.80 [facility] Comment on above: Performed By: #### 2 01155 #### [place] [id number] Lymphocytes/100 WBC (Bld) 2.1 % Abnormal 20.0 - 45.0 % [facility], [facility].; [facility], [facility] Work Phone: Comment on above: Performed By: #### 2 78991 #### [address] [address] MANUAL DIFF REVIEWED Normal [facility], [facility].; [facility], [facility] Work Phone: Comment on above: Performed By: #### 2 09071 #### [address] [address] MCH (RBC) [Entitic mass] 29 pg Normal 27 - 33 pg [facility].; [facility]. Work Phone: Comment on above: Performed By: #### 2 30264 #### [facility],[address] [place] [address] MCHC 34 X10 3 Normal 32 - 36 [facility] Comment on above: Performed By: #### 2 33232 #### [place] [address] MCV (RBC) [Entitic vol] 86 fL Normal 81 - 98 fL [facility].; [facility] Work Phone: Comment on above: Performed By: #### 2 85703 #### [place] [address] [place] # 1.27 x10EE3/UL High 0.20 - 1.00 [facility] Comment on above: Performed By: #### 2 77639 #### [place] [address] MONOS % 7.2 % Normal 0.0 - 10.0 [facility] Comment on above: Performed By: #### 2 91488 #### [place] [id number] Morphology [place] (Bld) [Interp] N/A Normal [facility].; [facility]. Work Phone: Comment on above: Performed By: #### 2 46100 #### [place] [address] Neut # 15.82 x10EE3/UL High 1.50 - 7.10 [facility] Comment on above: Performed By: #### 2 49025 #### [place] [address] Neutrophils/100 WBC (Bld) 90.0 % Abnormal 46.0 - 76.0 % [facility].; [facility]. Work Phone: Comment on above: Performed By: #### 2 16128 #### [facility],[address] [place] [address] PLATELET 210 x10EE3/UL Normal 150 - 450 [facility] Comment on above: Performed By: #### 2 27206 #### [facility],[address] [place] [address] Platelet mean volume (Bld) [Entitic vol] 7.8 fL Normal 6.4 - 10.5 fL [facility].; [facility]. Work Phone: Comment on above: Result Comment: AUTO MATED DIFFERENTIAL Performed By: #### 2 13397 #### [place] [address] RBC 4.07 x 10EE6/UL Low 4.50 - 6.00 [facility] Comment on above: Performed By: #### 2 38446 #### [facility],[address] [place], [place] [id number] WBC 17.6 x 10EE3/UL High 4.5 - 10.8 [facility] Comment on above: Performed By: #### 2 54729 #### [facility],[address] [place], [place] [phone] CMP with eGFR - DAILYon 03-06 AGE 38 years Normal [facility] Comment on above: Performed By: #### 2 45864 #### [place] [id number] Albumin [Mass/Vol] 2.3 g/dL Abnormal 3.4 - 5.0 g/dL [facility].; [facility]. Work Phone: Comment on above: Performed By: #### 2 61866 #### [facility],[address] [place] [address] Albumin/Globulin [Mass ratio] 0.7 {ratio} Low 0.9 - 1.6 [facility] Comment on above: Performed By: #### 2 13671 #### [facility],[address] [place] [address] ALK PHOS 52 U/L Normal 46 - 116 U/L [facility].; [facility], [facility] Work Phone: Comment on above: Performed By: #### 2 96561 #### [place] [address] ALT [Catalytic activity/Vol] 28 U/L Normal 16 - 63 U/L [facility].; [facility], [facility]. Work Phone: Comment on above: Performed By: #### 2 25475 #### [place] [address] Anion gap [Moles/Vol] 9 mmol/L Abnormal 10 - 2 0 mmol/L [facility].; [facility], [facility] Work Phone: Comment on above: Performed By: #### 2 28684 #### [facility],[address] [place], [place] [id number] AST [Catalytic activity/Vol] 23 U/L Normal 15 - 37 U/L [facility].; [facility], [facility] Work Phone: Comment on above: Performed By: #### 2 80173 #### [place] [id number] B/C RATIO 9 ratio Normal 0 - 30 [facility] Comment on above: Performed By: #### 2 77665 #### [facility],[address] [place] [address]18 Bilirubin [Mass/Vol] 2.9 mg/dL Abnormal 0.2 - 1 .0 mg/dL [facility], [employer].; [employer] [facility] [employer] [facility], [facility] Work Phone: Comment on above: Performed By: #### 2 31821 #### [facility],[address] [place] [address] Calcium [Mass/Vol] 8.4 mg/dL Abnormal 8.5 - 10. 1 mg/dL [facility], Inc.; [employer] [facility] [employer] [facility], [facility] Work Phone: Comment on above: Performed By: #### 2 40264 #### [facility],[address] [place] [address] Chloride [Moles/Vol] 104 mmol/L Normal 98 - 10 7 mmol/L [facility], Inc.; [employer] [facility] [employer] [facility], [facility] Work Phone: Comment on above: Performed By: #### 2 34382 #### [facility],[address] [place] [address] CMP with eGFR - DAILY Normal [facility] Comment on above: Result Comment: COMP REHENSIVE METABOLIC PANEL Performed By: #### 2 21379 #### [facility],[address] [place] [address]35 CO2 [Moles/Vol] 27.6 mmol/L Normal 21.0 - 32.0 mmol/L [facility], Inc.; [employer] [facility] [employer] [facility], [facility] Work Phone: Comment on above: Performed By: #### 2 39593 #### [facility],[address] [place] [address]48 Creatinine [Mass/Vol] 1.04 mg/dL Normal 0.70 - 1.30 mg/dL [facility], Inc.; [facility]. Work Phone: Comment on above: Performed By: #### 2 97928 #### [facility],[address] [place] [address] GFR/1.73 sq M.predicted among non-blacks MDRD (S/P/Bld) [Vol rate/Area] mL/min/{1.73_m2} Normal 60 - 999 [facility] Comment on above: Performed By: #### 2 76732 #### [facility],[address] [place] [address] Result Comment: ACCO RDING TO THE NATIONAL KIDNEY DISEASE EDUCATION PROGRAM(NKDE), A NORMAL eGFR IS A VALUE GREATER THAN OR EQUAL TO 60 ML/MIN/1.73 SQ METERS. CHRONIC KIDNEY DISEASE: <60mL/MIN/1.73 SQ METERS KIDNEY FAILURE: <15mL/MIN/1.73 SQ METERS Globulin (S) [Mass/Vol] 3.2 g/dL Normal 1.5 - 3.8 g/dL [facility].; [facility] [employer] [facility]. Work Phone: Comment on above: Performed By: #### 2 35953 #### [address] [address] Glucose [Mass/Vol] 151 mg/dL Abnormal 74 - 106 mg/dL [facility].; [facility] [employer] [facility]. Work Phone: Comment on above: Performed By: #### 2 91794 #### [facility],[address] [place] [address]62 Potassium [Moles/Vol] 3.9 mmol/L Normal 3.5 - 5.1 mmol/L [facility].; [facility] [employer] [facility]. Work Phone: Comment on above: Performed By: #### 2 69056 #### [address] [address] Protein [Mass/Vol] 5.5 g/dL Abnormal 6.4 - 8.2 g/dL [facility].; [facility]. Work Phone: Comment on above: Performed By: #### 2 70429 #### [facility],[address] [place], [place] [id number] Sodium [Moles/Vol] 137 mmol/L Normal 136 - 145 mmol/L [facility].; [facility], [employer] Work Phone: Comment on above: Performed By: #### 2 61293 #### [facility],[address] [place], [place] [address] Urea nitrogen [Mass/Vol] 9 mg/dL Normal 7 - 18 mg/dL [facility].; [facility], [employer] Work Phone: Comment on above: Performed By: #### 2 36133 #### [address] [address] Laboratory - Chemistry and C hemistry - challengeon 03-22-2024 Albumin [Mass/Vol] 0.7 g/dL Abnormal 0.9 - 1.6 [facility], [facility].; [facility], [employer] Work Phone: GFR/1.73 sq M.predicted among blacks MDRD (S/P/Bld) [Vol rate/Area] mL/min/{1.73_m2} Normal 60 - 999 {ML/MINUTE} [facility].; [facility]. Work Phone: GFR/1.73 sq M.predicted MDRD (S/P/Bld) [Vol rate/Area] mL/min/{1.73_m2} Normal 60 - 999 {ML/MINUTE} [facility], [facility].; [facility] Work Phone: Urea nitrogen/Creatinine [Mass ratio] 9 {ratio} Normal 0 - 30 {ratio} [facility]; [facility] Work Phone: Laboratory - Hematology and Cell countson 03-22-2024 Basophils (Bld) [#/Vol] 0.03 {x10EE3/UL} Normal 0.00 - 0.10 {x10EE3/UL} [facility]; [facility] Work Phone: Eosinophils (Bld) [#/Vol] 0.08 {x10EE3/UL} Normal 0.00 - 0.50 {x10EE3/UL} [facility]; [facility] Work Phone: Lymphocytes (Bld) [#/Vol] 0.37 {x10EE3/UL} Abnormal 0.80 - 2.80 {x10EE3/UL} [facility]; [facility] Work Phone: MCHC (RBC) [Mass/Vol] 34 {X10_3} Normal 32 - 3 6 {X10_3} [facility]; [facility] Work Phone: Monocytes (Bld) [#/Vol] 1.27 {x10EE3/UL} Abnormal 0.20 - 1.00 {x10EE3/UL} [facility]; [facility] Work Phone: Monocytes/100 WBC (Bld) 7.2 % Normal 0.0 - 10.0 % [facility]; [facility] Work Phone: Neutrophils (Bld) [#/Vol] 15.82 {x10EE3/UL} Abnormal 1.50 - 7.10 {x10EE3/UL} [facility].; [facility]. Work Phone: Platelets (Bld) [#/Vol] 210 {x10EE3/UL} Normal 150 - 450 {x10EE3/UL} [facility].; [facility]. Work Phone: RBC (Bld) [#/Vol] 4.07 {x_10EE6/UL} Abnormal 4.50 - 6.00 {x_10EE6/UL} [facility].; [facility]. Work Phone: WBC (Bld) [#/Vol] 17.6 {x_10EE3/UL} Abnormal 4.5 - 10.8 {x_10EE3/UL} [facility].; [facility]. Work Phone: No Panel Informationon 03-22 AGE 38 {years} Normal [facility]; [facility] Work Phone: CBC + DIFF DAILY Normal [facility].; [facility] Work Phone: CMP with eGFR - DAILY Normal [facility]; [facility] Work Phone: CBC + DIFFon 03-21-2024 Baso # 0.02 x10EE3/UL Normal 0.00 - 0.10 [facility] Comment on above: Performed By: #### 2 55876 #### [facility],[address] [place] [address] Basophils/100 WBC (Bld) 0.2 % Normal 0.0 - 2.0 [facility] Comment on above: Performed By: #### 2 86000 #### [facility],[address] [place] [address] CBC + DIFF Normal [facility] Comment on above: Result Comment: CBC- COMPLETE BLOOD COUNT Performed By: #### 2 77785 #### [facility],[address] [place] [address]3563 EO # 0.15 x10EE3/UL Normal 0.00 - 0.50 [facility] Comment on above: Performed By: #### 2 14557 #### [facility],[address] [place] [address] 99772 Eosinophils/100 WBC (Bld) 1.1 % Normal 0.0 - 7.0 [facility] Comment on above: Performed By: #### 2 04187 #### [facility],[address] [place] [address] Erythrocyte distribution width (RBC) [Ratio] 13.4 % Normal 12.0 - 15.6 [facility] Comment on above: Performed By: #### 2 31641 #### [facility],[address] [place], [place] [address] Hematocrit (Bld) [Volume fraction] 41.2 % Normal 40.0 - 52.0 [facility] Comment on above: Performed By: #### 2 04668 #### [facility],[address] [place] [address]28 Hemoglobin (Bld) [Mass/Vol] 13.9 g/dL Normal 13.0 - 17.5 [facility] Comment on above: Performed By: #### 2 42779 #### [facility],[address] [place] [address] Lymph # 0.49 x10EE3/UL Low 0.80 - 2.80 [facility] Comment on above: Performed By: #### 2 21630 #### [facility],[address] [place] [address] 34575 Lymphocytes/100 WBC (Bld) 3.5 % Low 20.0 - 45.0 [facility] Comment on above: Performed By: #### 2 22277 #### [facility],[address] [place] [address] MANUAL DIFF N/A Normal [facility] Comment on above: Performed By: #### 2 07350 #### [facility],[address] [place] [address] MCH (RBC) [Entitic mass] 29 pg Normal 27 - 33 [facility] Comment on above: Performed By: #### 2 39418 #### [facility],[address] [place] [address] MCHC 34 X10 3 Normal 32 - 36 [facility] Comment on above: Performed By: #### 2 85099 #### [place] [address] MCV (RBC) [Entitic vol] 86 fL Normal 81 - 98 [facility] Comment on above: Performed By: #### 2 12979 #### [place] [address] Williamson # 0.92 x10EE3/UL Normal 0.20 - 1.00 [facility] Comment on above: Performed By: #### 2 93006 #### [facility],[address] [place] [address] MONOS % 6.5 % Normal 0.0 - 10.0 [facility] Comment on above: Performed By: #### 2 95116 #### [address] [address] Morphology Douglas (Bld) [Interp] N/A Normal [facility] Comment on above: Performed By: #### 2 71328 #### [place] [address] Neut # 12.57 x10EE3/UL High 1.50 - 7.10 [facility] Comment on above: Performed By: #### 2 38884 #### [facility],[address] [place] [address] 40599 Neutrophils/100 WBC (Bld) 88.8 % High 46.0 - 76.0 [facility] Comment on above: Performed By: #### 2 60798 #### [facility],[address] [place], [place] [id number] PLATELET 222 x10EE3/UL Normal 150 - 450 [facility] Comment on above: Performed By: #### 2 65613 #### [facility],[address] [place] [address] Platelet mean volume (Bld) [Entitic vol] 7.6 fL Normal 6.4 - 10.5 [facility] Comment on above: Result Comment: AUTO MATED DIFFERENTIAL Performed By: #### 2 31993 #### [place] [address] RBC 4.82 x 10EE6/UL Normal 4.50 - 6.00 [facility] Comment on above: Performed By: #### 2 53365 #### [facility],[address] [place], [place] [id number] WBC 14.2 x 10EE3/UL High 4.5 - 10.8 [facility] Comment on above: Performed By: #### 2 03247 #### [facility],[address] [place], [place] [id number] CMP with eGFRon 03-21-2024 AGE 38 years Normal [facility] Comment on above: Performed By: #### 2 60792 #### [facility],[address] [place], [place] [id number] Albumin [Mass/Vol] 3.0 g/dL Abnormal 3.4 - 5.0 g/dL [facility].; [employer] [facility] Work Phone: Comment on above: Performed By: #### 2 55825 #### [facility],[address] [place], [place] [address] Albumin/Globulin [Mass ratio] 0.8 {ratio} Low 0.9 - 1.6 [facility] Comment on above: Performed By: #### 2 42755 #### [facility],[address] [place] [address] ALK PHOS 75 U/L Normal 46 - 116 U/L [facility], [facility].; [facility] Work Phone: Comment on above: Performed By: #### 2 96646 #### [facility],[address] [place] [address] ALT [Catalytic activity/Vol] 36 U/L Normal 16 - 63 U/L [facility], [facility].; [facility], [employer]. Work Phone: Comment on above: Performed By: #### 2 99170 #### [facility],[address] [place] [address] Anion gap [Moles/Vol] 11 mmol/L Normal 10 - 2 0 mmol/L [facility].; [facility], [facility] Work Phone: Comment on above: Performed By: #### 2 67618 #### [facility],[address] [place], [place] [address] AST [Catalytic activity/Vol] 26 U/L Normal 15 - 37 U/L [facility], [facility].; [facility], [facility] Work Phone: Comment on above: Performed By: #### 2 86320 #### [facility],[address] [place], [place] [address] B/C RATIO 12 ratio Normal 0 - 30 [facility] Comment on above: Performed By: #### 2 57868 #### [facility],[address] [place] [address] Bilirubin [Mass/Vol] 1.6 mg/dL Abnormal 0.2 - 1 .0 mg/dL [facility], [employer].; [employer] [facility], Inc[employer] Work Phone: Comment on above: Performed By: #### 2 78160 #### [facility],[address] [place] [address] Calcium [Mass/Vol] 8.7 mg/dL Normal 8.5 - 10. 1 mg/dL [facility], [facility].; [employer] [facility], Inc[employer] Work Phone: Comment on above: Performed By: #### 2 24730 #### [address] [address] Chloride [Moles/Vol] 103 mmol/L Normal 98 - 10 7 mmol/L [facility], Inc.; [employer] [facility], Inc. Work Phone: Comment on above: Performed By: #### 2 36722 #### [facility],[address] [place] [address] CMP with eGFR Normal [facility] Comment on above: Result Comment: COMP REHENSIVE METABOLIC PANEL Performed By: #### 2 39031 #### [address] [address] CO2 [Moles/Vol] 27.2 mmol/L Normal 21.0 - 32.0 mmol/L [facility], [facility].; [facility], Inc[facility] Work Phone: Comment on above: Performed By: #### 2 64793 #### [facility],[address] [place] [address]45 Creatinine [Mass/Vol] 1.02 mg/dL Normal 0.70 - 1.30 mg/dL [facility], Inc.; [facility] Work Phone: Comment on above: Performed By: #### 2 19059 #### [facility],[address] [place] [address] GFR/1.73 sq M.predicted among non-blacks MDRD (S/P/Bld) [Vol rate/Area] mL/min/{1.73_m2} Normal 60 - 999 [facility] Comment on above: Performed By: #### 2 22788 #### [facility],[address] [place] [address] Result Comment: ACCO RDING TO THE NATIONAL KIDNEY DISEASE EDUCATION PROGRAM(NKDE), A NORMAL eGFR IS A VALUE GREATER THAN OR EQUAL TO 60 ML/MIN/1.73 SQ METERS. CHRONIC KIDNEY DISEASE: <60mL/MIN/1.73 SQ METERS KIDNEY FAILURE: <15mL/MIN/1.73 SQ METERS THIS TEST SHOULD ONLY BE USED FOR PATIENTS 18 YEARS OF AGE AND OLDER. Globulin (S) [Mass/Vol] 3.8 g/dL Normal 1.5 - 3.8 g/dL [facility].; [employer] [facility] [employer]. Work Phone: Comment on above: Performed By: #### 2 68097 #### [facility],[address] [place] [address] Glucose [Mass/Vol] 98 mg/dL Normal 74 - 106 mg/dL [facility].; [employer] [facility] [employer]. Work Phone: Comment on above: Performed By: #### 2 20444 #### [facility],[address] [place] [address] Potassium [Moles/Vol] 3.3 mmol/L Abnormal 3.5 - 5.1 mmol/L [facility].; [facility] CenterEK [employer] [facility]. Work Phone: Comment on above: Performed By: #### 2 42322 #### [address] [address] Protein [Mass/Vol] 6.8 g/dL Normal 6.4 - 8.2 g/dL [facility]; [facility] Work Phone: Comment on above: Performed By: #### 2 19013 #### [address] [address] Sodium [Moles/Vol] 138 mmol/L Normal 136 - 145 mmol/L [facility]; [facility] Work Phone: Comment on above: Performed By: #### 2 59647 #### [address] [address] Urea nitrogen [Mass/Vol] 12 mg/dL Normal 7 - 18 mg/dL [facility]; [facility] Work Phone: Comment on above: Performed By: #### 2 17108 #### [address] [address] [address] ABDOMEN/PELVIS [facility] 2023 CT ABDOMEN/PELVIS [address] [address] Patient: JAIR WARREN Phone#: : 1985 Age: 38 Gender: M Pt. Type: ER Account: [id number] Location: [facility] Ordering: DR. RACHID REYEZ Exam Date: 03/21/2024/6:41 Family Phys: Charge Code: [id number] Physician: [place] Order #: [id number] Dose#: 14.4 PROCEDURE: CT ABDOMEN/PELVIS WITH CONTRAST [...] 38 Gender: M Pt. Type: ER Account: [id number] Location: 2 Ordering: DR. RACHID REYEZ Exam Date: 03/21/2024/6:41 Family Phys: Charge Code: [id number] Physician: [place] Order #: [id number] Dose#: 14.4 LUNG BASES: Normal. No visible pulmonary or pleural disease. OTHER: Negative. CONCLUSION: 1. Findings consistent with acute appendicitis. 2. Free fluid versus developing abscess deep in the pelvis. Dictated by: Sienna Maria MD on 03/21/2024 at 9:40 Approved by: Sienna Maria MD on 03/21/2024 at 9:44 Normal [facility] ED MED ADMINISTRATION DETAIL on 03-21-2024 ED MED ADMINISTRATION DETAIL Equity Manager Medication Administration Record [facility] [address] [place] [address] [id number] 03/21/2024 Patient: JAIR WARREN Sex: Male : 1985 Age: 38y MEASUREMENTS: Wt: 93.0 kg, Ht/Arie: 74.0 in, BMI: 26.32 ALLERGIES: No known drug allergies Medication Ordered Medication Administration Date/Time HYDROmorphone 06:55 03/21 HYDROmorphone (Dilaudid) IVP 0.5 mg given [...] and sedative warning. Verbalizes understanding. - 06:55 Bubbaanna Packer, R.N. Zofran IVP 4 mg 06:55 03/21 Zofran IVP 4 mg given via Site# 1. Allergies verified Given (NOW x1) and confirmed 5 rights. IV patency established. IV site checked: no 06:55 03/21/2024 pain, redness, or swelling. IV flushed thoroughly pre-medication Bubbaanna Godoyp, R.N. administration. Information reviewed with patient including reason Scanned for taking this medication. Verbalizes understanding. - 06:55 Bubba Packer, R.N. 1 of 3 Equity Manager Medication Ordered Medication Administration Date/Time IV NS 0.9 % 1000 07:03/21 IV NS 0.9 % 1000 mL started in bag#1 1000 mL at Started mL at 999 mL/hr 999 mL/hr via Site# 1. Allergies verified and confirmed 5 rights. IV 07:04 03/21/2024 (NOW x1) patency established. IV site checked: no pain, redness, or swelling. Bubbaanna Packer, R.N. IV flushed thoroughly pre-medication administration. Information Stopped reviewed with patient including reason for taking this medication. 08:04 03/21/2024 Verbalizes understanding. - 07:04 Bubbaanna Packer, R.N. Kellie Felix, R.N. Scanned 08:04 03/21 Medication Discontinued: bag #1 infused. Total amount infused: 1000 mL. IV patency established. IV site checked: no pain, redness, or swelling. IV flushed thoroughly post-medication administration. - 10:30 Kellie Felix R.N. Piperacillin-Tazoba 08:17 12 Piperacillin-Tazobac (Zosyn) IVPB 3.375gm/50ml NS Started c [...] 10:28 03/21/2024 Rona Bryan R.N. Scanned 10:28 03/21 Medication Discontinued: IV infused. Total amount infused: 100 mL. IV patency established. IV site checked: no pain, redness, or swelling. IV flushed thoroughly post-medication administration. - 10:31 Carissa Bryan R.N. 2 of 3 Equity Manager Medication Ordered Medication Administration Date/Time IV NS [...] Scanned MEDIC (more content not included)... Normal [facility] ED NURSES CLINICAL NOTEon ED NURSES CLINICAL NOTE Nurse Narrative Nurse Clinical Narrative [address] [place] [address] [id number] 03/21/2024 Patient: JAIR WARREN Sex: Male : [...] -- 06:18 03/21/24 ESTEBAN Packer R.N. Measurements: 06:03/21/24 Wt: 93.0 kg, Ht/Arie: 74.0 in, BMI: 26.32 -- 06:24 03/21/24 ESTEBAN Packer R.N. Medications: no known home medications -- 06:03/21/24 ESTEBAN Packer R.N. Allergies: 1 of 5 [...] disease exposure. ABUSE ASSESSMENT: The patient answered yes to the question(s) Do you feel safe in your home? and no to the question(s) Are you afraid to go home?. SELF HARM ASSESSMENT: Self harm assessment was performed. The patient answered no to the question(s) Have you recently felt down, depressed, or hopeless? and Do you have thoughts of harming or killing yourself?. NUTRITIONAL RISK ASSESSMENT: The nutritional risk assessment [...] 07:56 03/21/24 (more content not included)... Normal [facility] ED ORDER SHEET (CPOE ONLY)on 03-21-2024 ED ORDER SHEET (CPOE ONLY) Order Sheet Order Sheet [address] [place] [address] [id number] 03/21/2024 Patient: JAIR WARREN Sex: Male : [...] 06:40 06:55 Rachid Reyez M.D. 03/21/2024 03/21/2024 Bubba Birdie, R.N. Bubba Birdie, R.N. IV NS 0.9 %1000 mL at 999 07:00 03/21/2024 07:04 07:04 mL/hr (NOW x1) Rachid Reyez M.D. 03/21/2024 03/21/2024 Rona Hawkins R.N. Piperacillin-Tazobac (Zosyn) 07:59 03/21/2024 08:10 08:18 IVPB 3.375gm/50ml NS3.375 g Darryl Rich D.O. 03/21/2024 03/21/2024 diluted in sodium chloride IVPB Carissa Broderick, 0.9 % Minibag+ 50 mL at 100 R.N. R.N. mL/hr (NOW x1) Reason for ordering with alerts: Clinical consideration given --07:59 03/21/2024 Darryl Rich D.O. Flagyl IVPB [id number] mg at 07:59 03/21/2024 08:10 08:18 1 of 3 Order Sheet 100 mL/hr (NOW x1) Darryl Rich D.O. 03/21/2024 03/21/2024 Carissa Broderick R.N. R.N. IV NS 0.9 %1000 mL at [...] Rich D.O. 03/21/2024 03/21/2024 Ana Lilia Pearson, RPaoNPao RPaoNPao Reason for ordering with alerts: Clinical consideration [...] 06:40 Rachid Reyez M.D. 03/21/2024 Bubba Packer R.N. Reason for Study: Abdominal Pain STAFF ORDERS Order Description Priority Entered Acknowledged Collected Completed NPO 08:00 03/21/2024 08:15 03/21/2024 11:53 03/21/2024 Carissa Hinkle Katelyn Horst, D.O. R.N. R.NPao [Electronically signed by Darryl Rich D.O. (03/21/2024 13:32 EST)] [Electronically signed by Rachid Reyez M.D. (03/21/2024 20:34 EST)] 3 of 3 Normal [facility] ED PHYSICIAN CLINICAL REPORT on 03-21-2024 ED PHYSICIAN CLINICAL REPORT Narrative Physician Clinical Narrative [address] [address] [id number] 03/21/2024 Patient: JAIR WARREN Sex: Male : [...] Final Above high normal EST 03/21/2024 06:45 [place] # 0.92 x10/UL 0.20 - 1.00 Final [...] 5.0 Final Below low normal 07:17 EST 5 of 12 Narrative (more content not included)... Normal [facility] ED SUPER BILLon 03-21-2024 ED SUPER BILL [facility] [address] [place] [address] [id number] 03/21/2024 Patient: JAIR WARREN Sex: Male : 1985 Age: 38y Facility Professional Category Item Description Code Code Quantity Fee Total Drugs Normal Saline 800741 2 $0.00 $0.00 1000cc (501093) Nurse/E/M EMERGENCY 184146 1 $0.00 $0.00 DEPT VISIT HIGH SEVERITYFUNCJ (12953-71) Nurse/IV/IM/Infusions Drip/IVPB 533212 1 $0.00 $0.00 concurrent (03561) Nurse/IV/IM/Infusions Drip/IVPB initial 786094 1 $0.00 $0.00 (69634) Nurse/IV/IM/Infusions Hydration 665434 1 $0.00 $0.00 additional hour (17556) Nurse/IV/IM/Infusions IVP additional 457301 3 $0.00 $0.00 push (96720) Nurse/IV/IM/Infusions IVP same med 530860 1 $0.00 $0.00 (31 min apart) (32538) 1 of 2 [facility] Professional Category Item Description Code Code Quantity Fee Total Grand $0.00 Total Providers Jose Baird D.O. Chief Complaints Abdominal pain. ABDOMINAL PAIN. Principal Diagnosis Acute appendicitis with abscess. ICD-10 Codes K35.30: Acute appendicitis with localized peritonitis, without perforation or gangrene 2 of 2 Normal [facility] ED VISIT SUMMARYon ED VISIT SUMMARY Visit Overview Visit Overview [address] [place] [address] [id number] 03/21/2024 Patient: JAIR WARREN Sex: Male : 1985 Age: 38y 03/21/2024 08:34 PM EST ED Arrival:06:16 03/21/2024 EST Status: Recent Travel:no Language:eng Adv Directive: Isolation Status: Ethnicity:N Fall Risk:no risk Infectious Disease Exposure:no Measurements:6'2 / 188.0 Self-Harm Status:risk Sepsis Screen:negative cm 205.0 lb / 93.0 kg Chief Complaint:ABDOMINAL PAIN, (right sided, painful to palp), and (several months to years, increasing in the past several days) ALLERGIES No Known Drug Allergies HOME MEDICATIONS None PAST MEDICAL HISTORY / PROBLEMS 1 of 3 Visit Overview Irritable bowel syndrome (disorder) [...] complaints and the patient is resting quietly. 2 of 3 Visit Overview VITAL SIGNS First Vitals [...] APPENDICITIS WITH ABSCESS 3 of 3 Normal [facility] ED VITALS FLOW SHEETon 03-21 ED VITALS FLOW SHEET Vitals Vital Sign Flow Sheet [place] [address] [place] [id number] 03/21/2024 Patient: JAIR WARREN Sex: Male : [...] 99.4 F 3 3 of 3 Normal [facility] LIPASEon 03-21-2024 Lipase [Catalytic activity/Vol] 63.0 U/L Normal 15.0 - 78.0 U/L [facility].; [facility]ENTER[facility] [employer] [facility] [employer] [facility]. Work Phone: Comment on above: Result Comment: *PLE ASE NOTE THAT RANGES FOR LIPASE HAVE CHANGED OF 04/03/23 DUE TO AN ASSAY UPDATE BY THE PROJECT MANAGER.THE NEW ASSAY RANGE IS 6-250 U/L, WITH A REFERENCE RANGE OF 16-77 U/L. Performed By: #### 2 87076 #### [facility],[address] [place] [address] Laboratory - Chemistry and C hemistry - challengeon 03-21-2024 Albumin [Mass/Vol] 0.8 g/dL Abnormal 0.9 - 1.6 [facility].; [facility], [employer] Work Phone: Bilirubin [Mass/Vol] Negative Normal [facility].; [facility]. Work Phone: GFR/1.73 sq M.predicted among blacks MDRD (S/P/Bld) [Vol rate/Area] mL/min/{1.73_m2} Normal 60 - 999 {ML/MINUTE} [facility].; [facility], [employer] Work Phone: GFR/1.73 sq M.predicted MDRD (S/P/Bld) [Vol rate/Area] mL/min/{1.73_m2} Normal 60 - 999 {ML/MINUTE} [facility].; [facility]. Work Phone: Glucose [Mass/Vol] NORM Normal [facility].; [facility] Work Phone: pH (Bld) 7 [pH] Normal [facility].; [facility] [employer] [facility]. Work Phone: Protein [Mass/Vol] 15 g/dL Abnormal [facility].; [facility], [employer] Work Phone: Urea nitrogen/Creatinine [Mass ratio] 12 {ratio} Normal 0 - 30 {ratio} [facility].; [facility], [employer] Work Phone: Laboratory - Hematology and Cell countson 03-21-2024 WBC (Bld) [#/Vol] Negative Normal [facility].; [facility], [employer] Work Phone: Laboratory - Specimen inform ationon 03-21-2024 Specimen type Nom (Spec) R Normal [facility].; [facility]. Work Phone: No Panel Informationon 03-21 AGE 38 {years} Normal [facility].; [facility]. Work Phone: Blood Negative Normal [facility]egeneral Medical CenterMomondo Group Limited; [facility]. Work Phone: CMP with eGFR Normal [facility]sm[facility] Imaging [facility]egen[facility] Medical CenterMomondo Group Limited; [facility]. Work Phone: URINALYSISon 03-21-2024 Bilirubin Ql (U) Negative Normal NORMAL: NEGATIVE [facility] Comment on above: Performed By: #### 2 03752 #### [place] [address] Clarity (U) clear Normal [facility].; [facility]. Work Phone: Comment on above: Performed By: #### 2 06949 #### [facility],[address] [place] [address] Color (U) yellow Normal [facility].; [facility] Work Phone: Comment on above: Performed By: #### 2 13955 #### [facility],[address] [place] [address] Glucose Ql (U) NORM Normal NORMAL: NORMAL [facility] Comment on above: Performed By: #### 2 04213 #### [facility],[address] [place] [address] Hemoglobin Ql (U) Negative Normal NORMAL: NEGATIVE [facility] Comment on above: Performed By: #### 2 11847 #### [facility],[address] [place] [address] Ketone 5 Abnormal [facility] [facility] CenterMomondo Group Limited; [facility] Work Phone: Comment on above: Performed By: #### [id number] #### [facility],[address] [place] [address] [id number] Leukocytes Negative Normal NORMAL: NEGATIVE [facility] Comment on above: Performed By: #### 2 [id number] #### [facility],[address] [place] [address] [id number] Nitrite Ql (U) Negative Normal [facility]; [facility] Work Phone: Comment on above: Performed By: #### 2 [id number] #### [facility],[address] [place] [address] 42585 pH (U) 7 [pH] Normal NORMAL: 5.0-8.0 [facility] Comment on above: Performed By: #### 2 [id number] #### [facility],[address] [place] [address] [id number] Protein Ql (U) 15 Abnormal NORMAL: NEGATIVE [facility] Comment on above: Performed By: #### 2 [id number] #### [facility],[address] [place], [place] [id number] Sp Mchenry 1.010 Normal [facility].; [facility], [employer]Di[employer]. Work Phone: Comment on above: Performed By: #### 2 [id number] #### [facility],[address] [place] [address] Specimen Type R Normal [facility] Comment on above: Performed By: #### 2 [id number] #### [facility],[address] [place] [address] Urobilinog NORM Normal [facility], iDiDiD.; [facility], [employer]DiDi[employer]. Work Phone: Comment on above: Performed By: #### 2 [id number] #### [facility],[address] [place] [address] Laboratory - Chemistry and C hemistry - challengeon 06-23-2022 Albumin [Mass/Vol] 3.6 g/dL Normal 3.4 - 5.0 g/dL [facility].; [facility], [facility]. Albumin [Mass/Vol] 1.1 g/dL Normal 0.9 - 1.6 [facility].; [facility], [facility]. ALT [Catalytic activity/Vol] 49 U/L Normal 16 - 63 U/L [facility].; [facility], [facility]. Anion gap [Moles/Vol] 12 mmol/L Normal 10 - 2 0 mmol/L [facility].; [facility], [facility]. AST [Catalytic activity/Vol] 31 U/L Normal 15 - 37 U/L [facility].; [facility], [facility]. Bilirubin [Mass/Vol] 1.6 mg/dL Abnormal 0.2 - 1 .0 mg/dL [facility], [facility].; [facility], Inc[employer] Calcium [Mass/Vol] 8.8 mg/dL Normal 8.5 - 10. 1 mg/dL [facility].; [facility] Chloride [Moles/Vol] 101 mmol/L Normal 98 - 10 7 mmol/L [facility].; [facility] CO2 [Moles/Vol] 27.4 mmol/L Normal 21.0 - 32.0 mmol/L [facility].; [facility], [facility] Creatinine [Mass/Vol] 0.97 mg/dL Normal 0.70 - 1.30 mg/dL [facility].; [facility] CRP [Mass/Vol] 4.40 mg/dL Abnormal 0.00 - 0.90 mg/dL [facility].; [facility], [facility]. GFR/1.73 sq M.predicted among blacks MDRD (S/P/Bld) [Vol rate/Area] mL/min/{1.73_m2} Normal 60 - 999 {ML/MINUTE} [facility].; [facility], [facility]. GFR/1.73 sq M.predicted MDRD (S/P/Bld) [Vol rate/Area] mL/min/{1.73_m2} Normal 60 - 999 {ML/MINUTE} [facility].; [facility], [facility]. Globulin (S) [Mass/Vol] 3.2 g/dL Normal 1.5 - 3.8 g/dL [facility].; [facility], [facility]. Glucose [Mass/Vol] 115 mg/dL Abnormal 74 - 106 mg/dL [facility].; [facility], [facility]. Potassium [Moles/Vol] 3.9 mmol/L Normal 3.5 - 5.1 mmol/L [facility].; [facility], [facility] Protein [Mass/Vol] 6.8 g/dL Normal 6.4 - 8.2 g/dL [facility].; [facility], [facility] Sodium [Moles/Vol] 136 mmol/L Normal 136 - 145 mmol/L [facility].; [facility], [facility] Urea nitrogen [Mass/Vol] 11 mg/dL Normal 7 - 18 mg/dL [facility].; [facility] Urea nitrogen/Creatinine [Mass ratio] 11 {ratio} Normal 0 - 30 {ratio} [facility].; [facility] Laboratory - Hematology and Cell countson 06-23-2022 Basophils (Bld) [#/Vol] 0.00 {x10EE3/UL} Normal 0.00 - 0.10 {x10EE3/UL} [facility].; [facility] Basophils/100 WBC (Bld) 0.5 % Normal 0.0 - 2.0 % [facility].; [facility] Eosinophils (Bld) [#/Vol] 0.00 {x10EE3/UL} Normal 0.00 - 0.50 {x10EE3/UL} [facility].; [facility] Eosinophils/100 WBC (Bld) 0.0 % Normal 0.0 - 7.0 % [facility].; [facility] Erythrocyte distribution width (RBC) [Ratio] 14.2 % Normal 12.0 - 15.6 % [facility].; [facility], [facility] Hematocrit (Bld) [Volume fraction] 41.1 % Normal 40.0 - 52.0 % [facility].; [facility], [facility] Hemoglobin (Bld) [Mass/Vol] 13.9 g/dL Normal 13.0 - 17.5 g/dL [facility].; [facility], [facility] Lymphocytes (Bld) [#/Vol] 0.20 {x10EE3/UL} Abnormal 0.80 - 2.80 {x10EE3/UL} [facility].; [facility], [facility] Lymphocytes/100 WBC (Bld) 3.2 % Abnormal 20.0 - 45.0 % [facility].; [facility] [employer] [facility], iDiDi[employer]. MCH (RBC) [Entitic mass] 28 pg Normal 27 - 33 pg [facility].; [facility] [employer] [facility], [employer]. MCHC (RBC) [Mass/Vol] 34 {X10_3} Normal 32 - 3 6 {X10_3} [facility], Inc.; [facility] [employer] [facility], Inc[employer] MCV (RBC) [Entitic vol] 83 fL Normal 81 - 98 fL [facility].; [facility] [employer] [facility], [employer]Di[employer]. Monocytes (Bld) [#/Vol] 0.40 {x10EE3/UL} Normal 0.20 - 1.00 {x10EE3/UL} [facility].; [facility] [employer] [facility], [employer]. Monocytes/100 WBC (Bld) 6.6 % Normal 0.0 - 10.0 % [facility].; [facility], iDiDiD. Morphology Douglas (Bld) [Interp] N/A Normal [facility].; [facility] [employer] [facility], [employer]. Neutrophils (Bld) [#/Vol] 5.90 {x10EE3/UL} Normal 1.50 - 7.10 {x10EE3/UL} [facility].; [facility] [employer] [facility], [employer]. Neutrophils/100 WBC (Bld) 89.7 % Abnormal 46.0 - 76.0 % [facility].; [facility] CenterP[facility], Inc. Platelet mean volume (Bld) [Entitic vol] 9.3 fL Normal 6.4 - 10.5 fL [facility] [employer].; [facility] CenterP[facility], iDiDiD. Platelets (Bld) [#/Vol] 162 {x10EE3/UL} Normal 150 - 450 {x10EE3/UL} [facility], [facility]DiDi[employer].; [facility] CenterP[facility], iDiDiD. RBC (Bld) [#/Vol] 4.94 {x_10EE6/UL} Normal 4.50 - 6.00 {x_10EE6/UL} [employer].; [facility] [employer] [facility], [employer]. WBC (Bld) [#/Vol] 6.6 {x_10EE3/UL} Normal 4.5 - 10.8 {x_10EE3/UL} [facility] [employer] [facility], [employer]Di[employer].; [facility] [employer], iDiDi[employer]. No Panel Informationon 06-23 AGE 37 {years} Normal [facility] [employer].; [facility] [employer] [facility], [employer]. ALK PHOS 83 U/L Normal 46 - 116 U/L [facility].; [facility] CenterBioscan [facility], iDiDiD. CBC + DIFF Normal [facility] [employer]; [facility] [employer] [facility], [employer]Di[employer]. CMP with eGFR Normal [facility] [employer]; [facility] [employer], [employer]. MANUAL DIFF N/A Normal [facility] [employer]; [facility] [employer] [facility]. OCCULT BLOOD, FECES, SINGLE (IN OFFICE) Positive Abnormal [place].; [facility] [employer]. No Panel Informationon 04-02 VAS DEFERENS (STERILIZATION) See Note Normal [place].; [facility] [employer], [employer] Work Phone: Vital Signs Date Time Vital Sign Value Performing Clinician Facility 01-09-2025 11: Body height 182.88 cm BRITTANY HouseCallANNETTEBANNER DEL E WEBB MEDICAL CENTERVanilla ForumsOhio[facility] [employer].; [facility] [employer]. 01-09-2025 11:17040 Body mass index (BMI) [Ratio] 28.62 kg/m2 BRITTANY 8handsBANNER DEL E WEBB MEDICAL CENTERVanilla ForumsOhiohealth Doctors Hospital [employer].; [employer] [facility] [employer], Inc. 01-09-2025 11:17040 Body surface area Derived from formula 2.18 m2 [employer] ExoticaANNETTENexstim [facility]OSPITALVanilla ForumsOhiohealth Doctors [facility] [employer].; [facility] [employer]. 01-09-2025 11:17-0400 Body weight 95.71 kg BRITTANY SAENZER RUFFLER-C [facility], iDiDiD.; [facility], [facility]. 01-09-2025 11:17-0400 Diastolic blood pressure 77 mm[Hg] BRITTANY SAENZER RUFFLER-C [facility], Inc.; [facility], [facility]. Comment on above: Patient Position: Sitting; Cuff Location : Left Arm; Cuff Size: Large 01-09-2025 11:17-0400 Heart rate 69 /min BRITTANY SAENZER RUFFLER-C [facility], Inc.; [facility], [facility]. Comment on above: Pattern: Regular 01-09-2025 11:17-040 Systolic blood pressure 112 mm[Hg] BRITTANY SAENZER RUFFLER-C [facility], Inc.; [facility], [facility]. Comment on above: Patient Position: Sitting; Cuff Location : Left Arm; Cuff Size: Large 12-26-2024 10:48-0400 Body height 185.[address] Aman Diop MD Work Phone: [facility] 12-26-2024 10:48-0400 Body mass index (BMI) [Ratio] 27.6 kg/m2 Dr. Aman Diop MD Work Phone: [facility] 12-26-2024 10:48-0400 Body temperature 98.4 [degF] Dr. Aman Diop MD Work Phone: [facility] 12-26-2024 10:48-0400 Body weight 95.[address] Aman Diop MD Work Phone: [facility] 12-26-2024 10:48-0400 Diastolic blood pressure 81 mm[Hg] Dr. Aman Diop MD Work Phone: [facility] 12-26-2024 10:48-0400 Heart rate 66 /min Dr. Aman Diop MD Work Phone: [facility] 12-26-2024 10:48-0400 Respiratory rate 16 /min Dr. Aman Diop MD Work Phone: [facility] 12-26-2024 10:48-0400 SaO2% (BldA) [Mass fraction] 98 % Dr. Aman Diop MD Work Phone: [facility] 12-26-2024 10:48-0400 Systolic blood pressure 120 mm[Hg] Dr. Aman Diop MD Work Phone: [facility] 08-17-2024 10:49-0400 Body weight 92.[address] Jennifer Warren MD Work Phone: 0(882)575-296719 [address] 08-17-2024 10:49-0400 Diastolic blood pressure 91 mm[Hg] Dr. Jennifer Warren MD Work Phone: 8(137)926-471950 [place] [address] 08-17-2024 10:49-0400 Heart rate 79 /min Dr. Jennifer Warren MD Work Phone: 9(239)930-873750 [place] [address] 08-17-2024 10:49-0400 Respiratory rate 17 /min Dr. Jennifer Warren MD Work Phone: 6(328)105-990350 [place] [address] 08-17-2024 10:49-0400 SaO2% (BldA) [Mass fraction] 98 % Dr. Jennifer Warren MD Work Phone: [facility] 08-17-2024 10:49-0400 Systolic blood pressure 137 mm[Hg] Dr. Jennifer Warren MD Work Phone: [facility] 07-14-2024 08:00-0400 Body temperature 97.5 [degF] Dr. Jennifer Warren MD Work Phone: [facility] 07-14-2024 08:00-0400 Diastolic blood pressure 86 mm[Hg] Dr. Jennifer Warren MD Work Phone: [facility] 07-14-2024 08:00-0400 Heart rate 83 /min Dr. Jennifer Warren MD Work Phone: [facility] 07-14-2024 08:00-0400 Respiratory rate 16 /min Dr. Jennifer Warren MD Work Phone: [facility] 07-14-2024 08:00-0400 SaO2% (BldA) [Mass fraction] 97 % Dr. Jennifer Warren MD Work Phone: [facility] 07-14-2024 08:00-0400 Systolic blood pressure 117 mm[Hg] Dr. Jennifer Warren MD Work Phone: [facility] 07-14-2024 06:12-0400 Body height 185.[address] Jennifer Warren MD Work Phone: [facility] 07-14-2024 06:12-0400 Body mass index (BMI) [Ratio] 26.6 kg/m2 Dr. Jennifer Warren MD Work Phone: [facility] 07-14-2024 06:12-0400 Body weight 91.[address] Jennifer Warren MD Work Phone: [facility] 07-04-2024 10:280400 Body height 182.88 cm [facility], [facility].; [facility], [facility]. 07-04-2024 10:28040 Body mass index (BMI) [Ratio] 27.72 kg/m2 [facility]-C [facility], Inc.; [facility], [facility]. 07-04-2024 10:28040 Body surface area Derived from formula 2.15 m2 [facility]-C [facility], [facility].; [facility], [facility]. 07-04-2024 10:28040 Body temperature 98.5 [degF] [facility], Inc.; [facility], [facility]. Comment on above: Method: Oral 07-04-2024 10:28040 Body weight 92.7 kg [facility]-C [facility], Inc.; [facility], [facility]. 07-04-2024 10:28-0400 Diastolic blood pressure 102 mm[Hg] BRITTANY JEAN BAPTISTEHouseCallTTER RUFFLER-C [facility]sm[facility] Building Maintenance.; [facility], iDiDiD. Comment on above: Patient Position: Sitting; Cuff Location : Left Arm; Cuff Size: Standard 07-04-2024 10:28-0400 Heart rate 54 /min [facility]PITALHouseCallTTER RUFFLER-C [facility], iDiDiD.; [facility], i[employer]. Comment on above: Pattern: Regular 07-04-2024 10:28-0400 Inhaled oxygen concentration 21 % BRITTANY Mural.lyTTER RUFFLER-C [facility], Inc.; [facility], [facility]. Comment on above: Room air 07-04-2024 10:28-0400 SaO2% (BldA) [Mass fraction] 98 % [facility]OSPITALHouseCallH[facility]CH[facility]-C [facility], iDiDiD.; [facility], [facility]. 07-04-2024 10:28-0400 Systolic blood pressure 169 mm[Hg] BRITTANY MORALESTETTER RUFFLER-C [facility]DsmNorth [facility] Building Maintenance.; [facility]. Comment on above: Patient Position: Sitting; Cuff Location : Left Arm; Cuff Size: Standard 06-20-2024 15:10-0400 Body height 187.[address] Jennifer Warren MD Work Phone: [facility] 06-20-2024 15:10-0400 Body mass index (BMI) [Ratio] 26 kg/m2 Dr. Jennifer Warren MD Work Phone: [facility] 06-20-2024 15:10-0400 Body weight 92.[address] Jennifer Warren MD Work Phone: [facility] 06-20-2024 15:10-0400 Diastolic blood pressure 99 mm[Hg] Dr. Jennifer Warren MD Work Phone: [facility] 06-20-2024 15:10-0400 Heart rate 89 /min Dr. Jennifer Warren MD Work Phone: [facility] 06-20-2024 15:10-0400 Respiratory rate 18 /min Dr. Jennifer Warren MD Work Phone: 7(349)493-156314 [place] [address] 06-20-2024 15:10-0400 SaO2% (BldA) [Mass fraction] 98 % Dr. Jennifer Warren MD Work Phone: 5(524)281-036014 [place] [address] 06-20-2024 15:10-0400 Systolic blood pressure 148 mm[Hg] Dr. Jennifer Warren MD Work Phone: 6(051)134-317614 [place] [address] 06-13-2024 12:07-0400 Diastolic blood pressure 115 mm[Hg] Dr. Jennifer Warren MD Work Phone: 3(116)902-433814 [place] [address] 06-13-2024 12:07-0400 Heart rate 78 /min Dr. Jennifer Warren MD Work Phone: 6(082)038-075514 [place] [address] 06-13-2024 12:07-0400 Respiratory rate 18 /min Dr. Jennifer Warren MD Work Phone: 5(562)856-777214 [place] [address] 06-13-2024 12:07-0400 SaO2% (BldA) [Mass fraction] 100 % Dr. Jennifer Warren MD Work Phone: 6(656)404-510614 [place] [address] 06-13-2024 12:07-0400 Systolic blood pressure 169 mm[Hg] Dr. Jennifer Warren MD Work Phone: 7(629)464-095414 [place] [address] 06-13-2024 11:00-0400 Body height 187.[address] Jennifer Warren MD Work Phone: 9(028)987-063114 [place] [address] 06-13-2024 11:00-0400 Body mass index (BMI) [Ratio] 25 kg/m2 Dr. Jennifer Warren MD Work Phone: 2(402)258-805414 [place] [address] 06-13-2024 11:00-0400 Body temperature 97.4 [degF] Dr. Jennifer Warren MD Work Phone: 5(960)908-501514 [place] [address] 06-13-2024 11:00-0400 Body weight 88.[address] Jennifer Warren MD Work Phone: 7(140)247-953314 [place] [address] 05-03-2024 15:05-0500 Body mass index (BMI) [Ratio] 26.2 kg/m2 Dr. Jennifer Warren MD Work Phone: 9(237)168-689394 [place] [address] 05-03-2024 15:05-0500 Body weight 92.[address] Jennifer Warren MD Work Phone: 0(658)272-086394 [place] [address] 05-03-2024 15:05-0500 Diastolic blood pressure 102 mm[Hg] Dr. Jennifer Warren MD Work Phone: 6(103)931-201194 [place] [address] 05-03-2024 15:05-0500 Heart rate 78 /min Dr. Jennifer Warren MD Work Phone: 9(653)612-754214 [place] [address] 05-03-2024 15:05-0500 Respiratory rate 16 /min Dr. Jennifer Warren MD Work Phone: 9(006)777-851994 [place] [address] 05-03-2024 15:05-0500 SaO2% (BldA) [Mass fraction] 98 % Dr. Jennifer Warren MD Work Phone: 3(939)855-289794 [place] [address] 05-03-2024 15:05-0500 Systolic blood pressure 148 mm[Hg] Dr. Jennifer Warren MD Work Phone: 9(263)504-020694 [place] [address] 06-23-2022 16:25-0400 Body height 182.88 cm [facility]-C [facility], [facility].; [facility], [facility]. 06-23-2022 16:25-0400 Body mass index (BMI) [Ratio] 28.48 kg/m2 [facility], Inc.; [facility], [facility]. 06-23-2022 16:25-0400 Body surface area Derived from formula 2.18 m2 [facility] CENTERElixir Bio-TechHUTCHINSON HEALTH HOSPITAL-[facility], Inc.; [facility], [facility]. 06-23-2022 16:25-0400 Body temperature 99.3 [degF] [facility], [facility].; [facility], [facility]. Comment on above: Method: Oral 06-23-2022 16:25-0400 Body weight 95.26 kg BRITTANY PURDYER RUFFLER-C [facility], Inc.; [facility], Inc. 06-23-2022 16:25-0400 Diastolic blood pressure 87 mm[Hg] BRITTANY PURDYTTER RUFFLER-C [facility], Inc.; [facility], Inc. Comment on above: Patient Position: Sitting; Cuff Location : Left Arm; Cuff Size: Standard 06-23-2022 16:25-0400 Heart rate 89 /min BRITTANY [facility] MEDICAL CENTERFRANCTTER RUFFLER-C [facility], Inc.; [facility], Inc. Comment on above: Pattern: Regular 06-23-2022 16:25-0400 Systolic blood pressure 131 mm[Hg] BRITTANY PURDYTTER RUFFLER-C [facility], Inc.; [facility], Inc. Comment on above: Patient Position: Sitting; Cuff Location : Left Arm; Cuff Size: Standard 07-02-2020 14:240400 Body height 182.88 cm BRITTANY [facility] MEDICAL CENTERFRANCER RUFFLER-C [facility] [employer] [facility], Inc.; [facility] [employer] [facility], Inc[facility] 07-02-2020 14:24-0400 Body mass index (BMI) [Ratio] 27.04 kg/m2 BRITTANY [facility] CENTERFRANCER RUFFLER-C [facility], Inc.; [facility], Inc. 07-02-2020 14:240400 Body surface area Derived from formula 2.13 m2 [facility] CENTERFRANCER RUFFLER-C [facility] [employer] [facility], Inc.; [facility] [employer] [facility], Inc[employer] 07-02-2020 14:240400 Body weight 90.45 kg BRITTANY [facility] MEDICAL CENTERFRANCTTER RUFFLER-C [facility] [employer] [facility], Inc.; [facility] [employer] [facility], Inc[employer] 07-02-2020 14:24-0400 Diastolic blood pressure 85 mm[Hg] BRITTANY [facility] CENTERTETTER RUFFLER-C [facility] [employer] [facility], Inc.; [facility] [employer] [facility], Inc. Comment on above: Patient Position: Sitting; Cuff Location : Left Arm; Cuff Size: Standard 07-02-2020 14:24-0400 Heart rate 87 /min BRITTANY SAENZER [facility]-C [facility], Inc.; [facility] CENTERSpinX Technologies [facility], Inc. Comment on above: Pattern: Regular 07-02-2020 14:24-0400 Inhaled oxygen concentration 21 % BRITTANY CANDYER RUFFLER-C [facility], Inc.; [facility], Inc. Comment on above: Room air 07-02-2020 14:24-0400 SaO2% (BldA) [Mass fraction] 97 % [facility] CENTERSTEPHONBANNER [facility]-C [facility], Inc.; [facility], Inc. 07-02-2020 14:24-0400 Systolic blood pressure 125 mm[Hg] BRITTANY CANDYER [facility]-C [facility], Inc.; [facility], Inc. Comment on above: Patient Position: Sitting; Cuff Location : Left Arm; Cuff Size: Standard 06-04-2020 13:31-0500 Body height 185.42 cm [facility], Inc.; [facility], Inc. 06-04-2020 13:31-0500 Body mass index (BMI) [Ratio] 26.52 kg/m2 [facility], Inc.; [facility], Inc[facility] 06-04-2020 13:31-0500 Body surface area Derived from formula 2.16 m2 [facility], Inc.; [facility], Inc[facility] 06-04-2020 13:31-0500 Body weight 91.17 kg [facility]ENT[facility]ETTER [facility], Inc.; [facility], Inc[facility] 06-04-2020 13:31-0500 Diastolic blood pressure 97 mm[Hg] BR[facility] RUFFLER-C [facility], Inc.; [facility] [employer] [facility], Inc. Comment on above: Patient Position: Sitting; Cuff Location : Left Arm; Cuff Size: Standard 06-04-2020 13:31-0500 Heart rate 111 /min BRITTANY PURDYTTER RUFFLER-C [facility] [employer] [facility], Inc.; [facility] [employer] [facility], Inc. Comment on above: Pattern: Regular 06-04-2020 13:31-0500 Systolic blood pressure 136 mm[Hg] BRITTANY PURDYTTER RUFFLER-C [facility] [employer] [facility], Inc.; [facility] [place] [facility], Inc. Comment on above: Patient Position: Sitting; Cuff Location : Left Arm; Cuff Size: Standard 10-26-2017 10:22-0400 Body height 185.42 cm BRITTANY CANDYER RUFFLER-C [facility] [employer] [facility], Inc.; [employer] [facility] [employer] [facility], Inc. 10-26-2017 10:22-0400 Body mass index (BMI) [Ratio] 26.25 kg/m2 BR[facility] CENTERSTEPHONER RUFFLER-C [facility] [employer] [facility], Inc.; [employer] [facility] [place] [facility], Inc. 10-26-2017 10:22-0400 Body surface area Derived from formula 2.15 m2 BRITTANY CANDYER RUFFLER-C [facility] [employer] [facility], Inc.; [employer] [facility] [place] [facility], Inc. 10-26-2017 10:22-0400 Body weight 90.27 kg BRITTANY SAENZER RUFFLER-C [facility] [employer] [facility], Inc.; [employer] [facility] [place] [facility], Inc. 10-26-2017 10:22-0400 Diastolic blood pressure 86 mm[Hg] BRITTANY SAENZER RUFFLER-C [facility] [employer] [facility], Inc.; [employer] [facility] [employer] [facility], Inc. Comment on above: Patient Position: Sitting; Cuff Location : Left Arm; Cuff Size: Large 10-26-2017 10:22-0400 Heart rate 80 /min BRITTANY PURDYTTER RUFFLER-C [place] [facility], Inc.; [employer] [facility] [employer], Inc. Comment on above: Pattern: Regular 10-26-2017 10:22-0400 Systolic blood pressure 125 mm[Hg] BRITTANY MORALESTETTER RUFFLER-C [facility], Inc.; [facility], Inc. Comment on above: Patient Position: Sitting; Cuff Location : Left Arm; Cuff Size: Large 07-12-2016 09:58-0400 Body height 185.42 cm BRITTANY PURDYTTER RUFFLER-C [facility], Inc.; [facility], Inc[facility] 07-12-2016 09:58-0400 Body mass index (BMI) [Ratio] 25.48 kg/m2 BRITTANY PURDYTTER RUFFLER-C [facility], Inc.; [facility], Inc. 07-12-2016 09:58-0400 Body surface area Derived from formula 2.12 m2 BRITTANY PURDYTTER RUFFLER-C [facility], Inc.; [facility], Inc[facility] 07-12-2016 09:58-0400 Body temperature 98 [degF] BRITTANY PURDYTTER RUFFLER-C [facility], Inc.; [facility] [employer], Inc. Comment on above: Method: Oral 07-12-2016 09:58-0400 Body weight 87.6 kg BRITTANY PURDYTTER RUFFLER-C [facility], Inc.; [facility] [employer], Inc. 07-12-2016 09:58-0400 Diastolic blood pressure 75 mm[Hg] BRITTANY MORALESTETTER RUFFLER-C [facility], Inc.; [facility] [employer], Inc. Comment on above: Patient Position: Sitting; Cuff Location : Left Arm; Cuff Size: Standard 07-12-2016 09:58-0400 Heart rate 102 /min BRITTANY PURDYTTER RUFFLER-C [facility], Inc.; [facility]ENTERSpinX Technologies [facility], Inc. Comment on above: Pattern: Regular 07-12-2016 09:58-0400 Systolic blood pressure 128 mm[Hg] BRITTANY MORALESTETTER RUFFLER-C [facility] [employer] [facility], Inc.; [facility] [employer], Inc. Comment on above: Patient Position: Sitting; Cuff Location : Left Arm; Cuff Size: Standard 05-12-2013 10:00-0500 Body height 185.42 cm BRITTANY JEAN BAPTISTESTEPHONER [facility] [employer] [facility], Inc.; [facility], Inc. 05-12-2013 10:00-0500 Body mass index (BMI) [Ratio] 21.37 kg/m2 BRITTANY [facility], Inc.; [facility], Inc. 05-12-2013 10:000500 Body surface area Derived from formula 1.97 m2 BRITT[facility] CENTERElixir Bio-TechHUTCHINSON HEALTH [facility]-C [facility], Inc.; [facility]. 05-12-2013 [id number]:[id number] Body weight 73.48 kg BRITTANY JEAN BAPTISTEFANY [facility], iDiDiD.; [facility]. 05-12-2013 10:00-0500 Diastolic blood pressure 80 mm[Hg] BRITTANY [facility]ENTERSTEPHONER [facility] [employer] [facility] HealthVascular Imaging Inc.; [facility], Inc. Comment on above: Patient Position: Sitting; Cuff Location : Left Arm; Cuff Size: Standard 05-12-2013 10:00-0500 Heart rate 70 /min BRITTANY [facility] CENTERElixir Bio-TechHUTCHINSON HEALTH HOSPITAL-C [facility] [employer] [facility] Maintenance.; [facility], Inc. Comment on above: Pattern: Regular 05-12-2013 10:00-0500 Systolic blood pressure 119 mm[Hg] BRITTANY JEAN BAPTISTEElixir Bio-TechANNETTEER RUFFLER-C [facility] [employer] [facility] HealthV[facility] Imaging Inc.; [facility], Inc. Comment on above: Patient Position: Sitting; Cuff Location : Left Arm; Cuff Size: Standard 06-30-2012 15:16-0400 Body height 185.42 cm Irma Feliciano RN [facility], iDiDiD.; [facility], Inc. 06-30-2012 15:16-0400 Body mass index (BMI) [Ratio] 22.16 kg/m2 Irma Feliciano RN [facility] [employer] [facility], Inc.; [facility] 06-30-2012 15:16-0400 Body surface area Derived from formula 2 m2 Irma Feliciano RN [facility] [employer] [facility], Inc.; [employer] [facility] [place] [facility], Inc. 06-30-2012 15:16-0400 Body temperature 97.9 [degF] Irma Feliciano RN [facility] [employer] [facility].; [employer] [facility] [place] [facility], Inc. Comment on above: Method: Oral 06-30-2012 15:16-0400 Body weight 76.2 kg Irma Feliciano RN [facility] Hospital[facility], Inc.; [employer] [facility], Inc. 06-30-2012 15:16-0400 Diastolic blood pressure 75 mm[Hg] Irma Feliciano RN [facility] HospitalBioscan [facility] HealthVascular Imaging Inc.; [employer] [facility] [employer], Inc. Comment on above: Patient Position: Sitting; Cuff Location : Left Arm; Cuff Size: Large 06-30-2012 15:16-0400 Heart rate 75 /min Irma Feliciano RN [facility] [employer] [facility].; [employer] [facility], Inc. Comment on above: Pattern: Regular 06-30-2012 15:16-0400 Systolic blood pressure 132 mm[Hg] Irma Feliciano RN [facility] [employer] [facility] HealthV[facility] Imaging Inc.; [employer] [facility] [place] [employer], Inc. Comment on above: Patient Position: Sitting; Cuff Location : Left Arm; Cuff Size: Large 06-11-2012 13:46-0500 Body height 185.42 cm [facility]ANY [facility]ELCh[facility]othe [facility] [employer] [facility].; [employer] [facility] [employer], Inc. 06-11-2012 13:46-0500 Body mass index (BMI) [Ratio] 22.69 kg/m2 [facility] [employer] [facility] HealthV[facility] Imaging Inc.; [employer] [facility] [place] [facility], Inc. 06-11-2012 13:46-0500 Body surface area Derived from formula 2.02 m2 [facility] [employer] [facility] HealthV[facility] Imaging Inc.; [employer] [facility] [place] [facility], Inc. 06-11-2012 13:46-0500 Body weight 78.02 kg [facility] [employer] [facility] HealthV[facility] Inc.; [employer] [facility] [place] [facility], Inc. 06-11-2012 13:46-0500 Diastolic blood pressure 62 mm[Hg] BRITTANY JEAN BAPTISTEWaikoloa Steak & SeafoodTETTER RUFFLER-C [facility] [employer] [facility], Inc.; [employer] [facility], Inc. Comment on above: Patient Position: Sitting; Cuff Location : Left Arm; Cuff Size: Standard 06-11-2012 13:46-0500 Heart rate 68 /min BRITTANY JEAN BAPTISTEWaikoloa Steak & SeafoodTETTER RUFFLER-C [facility] [employer] [facility], Inc.; [employer] [facility] [employer] [facility], Inc. Comment on above: Pattern: Regular 06-11-2012 13:46-0500 Systolic blood pressure 114 mm[Hg] BRITTANY JEAN BAPTISTEWaikoloa Steak & SeafoodTETTER RUFFLER-C [facility] [employer] [facility], Inc.; [employer] - [facility] [employer] [facility], Inc. Comment on above: Patient Position: Sitting; Cuff Location : Left Arm; Cuff Size: Standard 04-15-2011 15:29-0500 Body height 185.42 cm BRITTANY Mural.lyTTER RUFFLER-C [facility] [employer] [facility], Inc.; [employer] [facility] [place] [employer], Inc. 04-15-2011 15:29-0500 Body mass index (BMI) [Ratio] 22.43 kg/m2 BRITTANY HouseCallTTER RUFFLER-C [facility] [employer] [facility], Inc.; [employer] [facility] [place] [facility], Inc. 04-15-2011 15:29-0500 Body surface area Derived from formula 2.01 m2 BRITTANY HouseCallTTER RUFFLER-C [facility] [employer] [facility], Inc.; [employer] [facility] [employer] [facility], Inc. 04-15-2011 15:29-0500 Body temperature 97.6 [degF] BRITTANY JEAN BAPTISTEWaikoloa Steak & SeafoodTETTER RUFFLER-C [facility] [employer] [facility], Inc.; [employer] [facility] [employer] [facility], Inc. Comment on above: Method: Oral 04-15-2011 15:29-0500 Body weight 77.11 kg BRITTANY Mural.lyTTER RUFFLER-C [employer], Inc.; [employer] [facility] [employer], Inc. 04-15-2011 15:29-0500 Diastolic blood pressure 70 mm[Hg] BRITTANY JEAN BAPTISTEWaikoloa Steak & SeafoodTETTER RUFFLER-C [place] [facility], Inc.; [employer] [facility], Inc. Comment on above: Patient Position: Sitting; Cuff Location : Left Arm; Cuff Size: Large 04-15-2011 15:29-0500 Heart rate 83 /min BRITTANY JEAN BAPTISTEWaikoloa Steak & SeafoodTETTER RUFFLER-C [employer], Inc.; [employer], Inc. Comment on above: Pattern: Regular 04-15-2011 15:29-0500 Systolic blood pressure 106 mm[Hg] BRITTANY HOFSTETTER RUFFLER-C [employer], Inc.; [employer] - [employer], Inc. Comment on above: Patient Position: Sitting; Cuff Location : Left Arm; Cuff Size: Large 04-15-2010 16:12-0500 Body temperature 98.4 [degF] BRITTANY JEAN BAPTISTEWaikoloa Steak & SeafoodTETTER RUFFLER-C [employer], Inc.; [employer], Inc. Comment on above: Method: Oral 04-15-2010 16:12-0500 Diastolic blood pressure 73 mm[Hg] BRITTANY JEAN BAPTISTEFSTETTER RUFFLER-C [employer], Inc.; [employer] - [employer], Inc. Comment on above: Patient Position: Sitting; Cuff Location : Left Arm; Cuff Size: Standard 04-15-2010 16:12-0500 Heart rate 80 /min BRITTANY JEAN BAPTISTEWaikoloa Steak & SeafoodTETTER RUFFLER-C [employer], Inc.; [employer], Inc. Comment on above: Pattern: Regular 04-15-2010 16:12-0500 Systolic blood pressure 112 mm[Hg] BRITTANY JEAN BAPTISTEWaikoloa Steak & SeafoodTETTER RUFFLER-C [employer], Inc.; [employer], Inc. Comment on above: Patient Position: Sitting; Cuff Location : Left Arm; Cuff Size: Standard Encounters Encounter Date Encounter Type Care Provider Facility Start: 03-07-2025 ambulatory Josefina Veronica ty:[facility] Start: 02-20-2025 ambulatory Josefina Veronica ty:[facility] Start: 02-01-2025 End: 02-01-2025 ambulatory Josefina Sears Facility:[facility] Start: 01-30-2025 ambulatory FANI Weir y:[facility] Start: 01-09-2025 End: 01-09-2025 Office outpatient visit 15 minutes BRITTANY JEAN BAPTISTEWaikoloa Steak & SeafoodTETTER RUFFLER-C [employer], Inc[employer] Start: 12-26-2024 End: 12-26-2024 Patient encounter procedure Josefina JACKSON -[facility] Work Phone: Start: 12-26-2024 End: 12-26-[address] Aman Diop MD Work Phone: -[facility] Start: 12-26-2024 End: 12-26-2024 ambulatory Josefina Sears Facility:[facility] Start: 11-18-2024 End: 11-18-2024 ambulatory JOSEFINA ORION Facility:[id number] Start: 11-07-2024 End: 11-07-2024 ambulatory JOSEFINA ORION Facility:[id number] Start: 10-28-2024 End: 10-28-2024 ambulatory JOSEFINA ORION Facility:[id number] Start: 10-11-2024 End: 10-11-2024 ambulatory JOSEFINA E ORION Facility:[id number] Start: 09-30-2024 End: 09-30-2024 ambulatory JOSEFINA ORION Facility:[id number] Start: 09-20-2024 End: 09-20-2024 ambulatory JOSEFINA Galvez ORION Facility:[id number] Start: 09-13-2024 End: 09-13-2024 ambulatory JOSEFINA E ORION Facility:[id number] Start: 09-06-2024 End: 09-06-2024 ambulatory JOSEFINA E ORION Facility:[id number] Start: 08-30-2024 End: 08-30-2024 ambulatory JOSEFINA E ORION Facility:[id number] Start: 08-17-2024 End: 08-17-2024 Patient encounter procedure Josefina JACKSON -[facility] Work Phone: Start: 08-17-2024 End: 08-17-[address] Jennifer Warren MD Work Phone: [facility] Work Phone: Start: 07-19-2024 End: 07-19-2024 Medication Refill/Order [facility]ANY SALINAS[facility] Start: 07-14-2024 ambulatory Price Villanueva Facility :[facility] Start: 07-14-2024 Non-patient / Non-visit Price Villanueva DO -[facility] Start: 07-14-2024 End: 07-14-2024 Admission to same day surgery center Price Villanueva DO -Endoscopy Work Phone: Start: 07-14-2024 End: 07-14-[address] Jennifer Warren MD Work Phone: [facility] Work Phone: Start: 07-08-2024 End: 07-08-2024 Medication Refill/[facility] Start: 07-04-2024 End: 07-04-2024 Office outpatient visit 25 minutes BRITTANY CARMICHAEL [facility] Start: 06-20-2024 End: 06-20-2024 Patient encounter procedure Josefina JACKSON -Laboratory Work Phone: Start: 06-20-2024 End: 06-20-[address] Jennifer Warren MD Work Phone: [facility] Work Phone: Start: 06-20-2024 End: 06-20-2024 ambulatory Josefina Sears Facility:[facility] Start: 06-13-2024 End: 06-13-[address] Jennifer Warren MD Work Phone: [facility] Work Phone: Start: 06-13-2024 End: 06-13-2024 Patient encounter procedure Josefina JACKSON -[facility] Work Phone: Start: 06-13-2024 End: 06-13-2024 ambulatory Josefina Sears Facility:[facility] Start: 06-07-2024 End: 06-07-[address] Jennifer Warren MD Work Phone: [facility] Work Phone: Start: 06-07-2024 End: 06-07-2024 Patient encounter procedure Josefina JACKSON -[facility] Work Phone: Start: 06-07-2024 End: 06-07-2024 ambulatory Josefina Sears Facility:[facility] Start: 05-25-2024 End: 05-25-2024 ambulatory JENNIFER WARREN [facility] Start: 05-06-2024 End: 05-06-2024 ambulatory AMAN DIOP [facility] Start: 05-03-2024 End: 05-03-2024 Patient encounter procedure Josefina JACKSON -Laboratory, Specimen Work Phone: Start: 05-03-2024 End: 05-03-2024 Patient encounter procedure Josefina JACKSON -[facility] Work Phone: Start: 05-03-2024 End: 05-03-2024 ambulatory Jennifer Warren Facility:[facility] Start: 05-03-2024 End: 05-03-2024 ambulatory Josefinakrupa Sears Facility:[facility] Start: 04-04-2024 End: 04-05-2024 Historical Summary BRITTANY SALINAS-[place] [facility]drug[facility] WAMP[facility] - [place] [facility] Start: 03-23-2024 Evaluation and management of inpatient OZZIE PIERRE Facility:[facility] Start: 03-21-2024 End: 03-23-2024 Evaluation and management of inpatient JENNIFER WARREN [facility] Start: 06-24-2022 End: 06-24-2022 Patient encounter procedure BRITTANY SALINAS-[place] [facility] [employer] [facility], Inc[facility] Start: 06-23-2022 End: 06-24-2022 Office outpatient visit 25 minutes BRITTANY SALINAS-[facility] [employer] [facility], Inc. Start: 07-02-2020 End: 07-02-2020 Office outpatient visit 15 minutes BRITTANY SALINAS-[place] [facility] ProdrugNUT [facility], Inc. Start: 06-08-2020 End: 06-08-2020 Medication Refill/Order BRITTANY SAENZER RUFFLER-C [facility], Inc[facility] Start: 06-04-2020 End: 06-04-2020 Office outpatient visit 15 minutes BRITTANY SAENZER RUFFLER-C [facility] Inc[facility] Start: 04-05-2018 End: 04-05-2018 Historical Summary BRITTANY CARMICHAEL RUFFLER-C [facility], Inc[facility] Start: 10-26-2017 End: 10-26-2017 Office outpatient visit 15 minutes BRITTANY CARMICHAEL RUFFLER-C [facility], Inc[facility] Start: 07-12-2016 End: 07-12-2016 Office outpatient visit 15 minutes BRITTANY CARMICHAEL RUFFLER-C [facility], Inc[facility] Start: 05-12-2013 End: 05-12-2013 Patient encounter procedure BRITTANY SAENZER RUFFLER-C [facility], Inc[facility] Start: 06-30-2012 End: 06-30-2012 Patient encounter procedure BRITTANY SAENZER RUFFLER-C [facility], Inc[facility] Start: 06-11-2012 End: 06-11-2012 Patient encounter procedure BRITTANY SAENZER RUFFLER-C [facility], Inc[facility] Start: 06-03-2011 End: 06-03-2011 Medication Refill/Order BRITTANY CARMICHAEL RUFFLER-C [facility] Inc[facility] Start: 05-28-2011 End: 05-28-2011 Historical Summary BRITTANY SAENZER RUFFLER-C [facility], Inc. Start: 04-15-2011 End: 04-15-2011 Patient encounter procedure BRITTANY SAENZER RUFFLER-C [facility], Inc[facility] Start: 04-15-2010 End: 04-15-2010 Patient encounter procedure BRITTANY SAENZER RUFFLER-C [facility], Inc[facility] Procedures Date Procedure Procedure Detail Performing Clinician [...] Comment: Speci men Type: BLOOD SPECIMENOrdering Facility: [facility] Address: [address] [place] [address] Performed By: #### T SCR ####CC [facility] BLOOD BANKCLIA [id number] [address] Start: 03-21-2024 End: 03-21-2024 Appendectomy Malgorzata OLIVEIRA MD Work Phone: Comment on above: with peritonitis; Dr Pao Warren [facility] Start: 03-21-2024 Bypass Large Intesti ne to Large Intestine, Open Approach JENNIFER WARREN Start: 03-21-2024 Inspection of Perito chica Cavity, Percutaneous Endoscopic Approach JENNIFER WARREN Start: 03-21-2024 Repair Sigmoid Colon , Open Approach JENNIFER WARREN Start: 03-21-2024 Resection of Ileocec al Valve, Open Approach JENNIFER WARREN Start: 03-21-2024 End: 03-21-2024 Urinalysis BRITTANY SALINAS-[place] Comment on above: Result Comment: URIN ALYSIS Performed By: #### [id number] #### [facility],[address] [place] [address] Start: 06-23-2022 End: 06-23-2022 Dischrg meds reconciled w/current med list Malgorzata OLIVEIRA MD Work Phone: Start: 07-02-2020 End: 07-02-2020 Collj & interpj physiol data min 30 min ea 30 d BRITTANY CARMICHAEL RUFFLER-C Start: 07-02-2020 End: 07-02-2020 Urinary Incontinence BRITTANY CARMICHAEL RUFFLER-[place] Comment on above: Negative. Start: 06-08-2020 End: 06-08-2020 Collj & interpj physiol data min 30 min ea 30 d AMAN DIOP MD Work Phone: Start: 04-02-2018 End: 04-02-2018 Vasectomy BRITTANY CARMICHAEL RUFFLER-C Comment on above: R ing hernia; Dr Tai eugene Start: 04-06-2017 H/O: vasectomy History of vasectomy Dr. Jennifer Warren MD Work Phone: Comment on above: 04/02/18 Start: 05-28-2011 End: 05-28-2011 Repair of inguinal hernia BRITTANY CARMICHAEL RUFFLER-[place] Comment on above: Right. TDAP - Adacel/Boostrix WHITN LACEY OROP-[place] Comment on above: Discussed. 07/04/2024 Plan of Treatment Date Care Activity Detail Author Start: 07-21-2025 Well child visit Medical; BLOOD PRESSURE CHECK - [address] [facility] [employer]. Start: 21-Jul-2025 11:00-04:00 MD AMAN DIOP [facility] Start: 01-30-2025 Procedure [facility] Start: 01-09-2025 Basic metabolic panel calcium total BMP (33480) Start: 09-Jan-2025 11:28-04:00 Request [place] [facility].; [facility]. Start: 01-09-2025 Patient encounter procedure Medical; BLOOD PRESSURE CHECK - [facility]. Start: 09-Jan-2025 11:00-04:00 MD AMAN DIOP [facility] Start: 07-14-2024 Colonoscopy w/biopsy single/multiple COLONOSCOPY AND BIOPSY [facility] Start: 07-14-2024 Endoscopy upper small intestine w/biopsy SMALL BOWEL ENDOSCOPY/BIOPSY [facility] Start: 07-14-2024 Patient discharge [facility] Start: 06-13-2024 Following clinical pathway protocol [facility] Start: 06-13-2024 Following clinical pathway protocol [facility] Start: 06-04-2020 Patient Education [facility] discoapi; [facility] Start: 10-26-2017 Patient Education [facility]; [facility]. Start: 07-12-2016 Patient Education GASTRITIS Indication: Gastritis, presence of bleeding unspecified, unspecified chronicity, unspecified gastritis type Start: 12-Jul-2016 Instruction Type: [facility] Start: 06-30-2012 Blood occult peroxidase actv qual other sources OCCULT BLOOD, FECES, SINGLE (IN OFFICE) (00478) Start: 30-Jun-2012 15:47-04:00 Request [facility]; [facility] [employer]. Start: 06-30-2012 Ova&parasites direct smears concentration & id OVA & PARASITE DIR SMEAR ([id number]) Start: 30-Jun-2012 15:46-04:00 Request [facility]; [facility] [employer]. Start: 06-30-2012 Cul bact stool aerobic isol salmonella&shigell STOOL-YOUSUF CULTURE (41142) Start: 30-Jun-2012 15:46-04:00 [facility] [employer]. C reactive protein [Mass/volume] in Serum or Plasma [facility] Clostridioides diffi cile DNA [Presence] in Unspecified specimen by LA NENA with probe detection [facility] Nucleic acid assay [facility] Ova OR parasites identification [facility] Patient referral [facility] Work Phone: Procedure [facility] Vitamin B12 measurement [facility] Vitamin D, 25-hydrox y measurement [facility] Payers Date Payer Category Payer Self-pay 2018 Unknown [id number] 1985 Unknown [id number] 2.16.8 [id number] 1985 Unknown [id number] 2.16.8 40.1.642551.3.579.2.651 1985 Unknown [id number] 2.16.8 40.1.565812.3.579.2.651 Unknown ANTHEM Unknown [id number] 2.16. 840.1.619881.3.579.2.579 Unknown [id number] 2.16.8 40.1.760880.3.579.2.462 Unknown [id number] 2.16.8 40.1.114143.3.579.2.462 Unknown [id number] 2.16.8 40.1.670984.3.579.2.462 Unknown [id number] 2.16.8 40.1.396150.3.579.2.462 Unknown [id number] 2.16.8 40.1.181547.3.579.2.462 Unknown [id number] 2.16.8 40.1.668308.3.579.2.462 Unknown [id number] 2.16.8 40.1.443812.3.579.2.462 Unknown [id number] 2.16.8 40.1.774516.3.579.2.462 Unknown [id number] 2.16.8 40.1.442676.3.579.2.462 Unknown [id number] 2.16.8 40.1.130903.3.579.2.462 Unknown [id number] 2.16.8 40.1.155131.3.579.2.462 Unknown [id number] 2.16.8 40.1.826553.3.579.2.462 Unknown [id number] 2.16.8 40.1.080083.3.579.2.462 Unknown [id number] 2.16.8 40.1.550050.3.579.2.462 Unknown [id number] 2.16.8 40.1.107651.3.579.2.462 Social History Date Type Detail Facility Alcohol Use: Alcohol Use: ; Y es for Alcohol Use. 1 to 7 drinks per week. 2 drinks per occasion. [facility] Current Work/Study Status Current Work/Study Status [facility]; [facility] Tobacco use: Tobacco use: ; F ormer smoker. [facility]. Start: 1985 Male [facility] Start: 04-15-2018 End: 12-26-2024 Never smoked tobacco [facility] Work Phone: Start: 06-19-2024 End: 07-14-2024 Sex Male (finding) [facility] Alcohol Use: Alcohol Use: ; N o Alcohol Use. [facility] Tobacco use: Tobacco use: ; N ever smoker. [facility] Sex Male [facility] Goals Date Patient Goal Desired Activity /State Mental Status Date Assessment Result Facility 07-14-2024 Cognitive function Level Of Consciousness Drowsy [facility] Work Phone: 07-14-2024 Cognitive function Patient Orien tation Person;Place;Time [facility] Work Phone: 06-13-2024 Cognitive function Voice/Name [facility] Work Phone: Clinical Notes 03-21-2024 to 12-26-2024 Note Date & Type Note Facility 12-26-2024 Evaluation note Diagnosis Onset Date Resolution Crohn disease acute December 062024 10:32am Diarrhea acute December 10:32am Elevated lipase acute December 26, 2024 10:32am Immunocompromised acute Septemb er 2024 10:32am Therapeutic drug monitoring acute December 26, 2024 10:32am [facility] Work Phone: 1(497) 584-835009-22-2025 Progress [facility] [address] [place] [address] OFFICE VISIT Date of Service: 12/26/24 MR#: [id number] Acct: [id number] Name: JAIR WARREN Rep #: [id number] : 1985 Provider: RENETTA Sears Age/Sex: 39/M Location: [facility] Status: Signed Intake Vital Signs 07/14/24 06:12 12/26/24 10:48 Height 6 ft 1 in 6 ft 1 in Weight: 209 lb 8 oz BMI 27.6 BP 120/81 H Respiration 16 Pulse 66 Temp 98.4 F Temp Source Temporal Pulse Oximetry (%) 98 Oxygen Delivery Method room air Intake Visit Reasons: 4 M FU Crohn's Disease Chief Complaint: f/u Crohn's Manager Of Human Resources Required: No Accompanied by: Is patient in [...] s 08/17/24 12/26/24 Rx release peg 3350-sod sulf,mrbqh-yvk-xac See Rx Instructions PO .COMPLEX #2 11/16/24 12/26/24 Rx 178.7-7.3-0.5-1.12-0.9 gram oral mL soln (Suflave) budesonide 3 mg 6 mg PO QAM Crohn's 12/26/24 12/26/24 History capsule,delayed,extended release PFSH Medical History Wears [...] combination immunosuppression and agrees with plan. Note: [employer] speech recognition movie stunt performer software was used to create portions of this document. Sound-alike and misspelled words, as well as other movie stunt performer errors may be contained in the documentation. [...] drawn just prior to his next infusion. Leti keep me apprised of any changes in [...] Smoking Status: Never smoker 12/26/24 1356 juan SALES PROGRAM COORDINATOR-C> Date _ Josefina Sears SALES PROGRAM COORDINATOR-C Cosigner Signature: Date (if applicable) CC: ~ [facility]09-01-2025 Evaluation note* Diagnosis Onset Date Resolution Status Admit Date Crohn disease acute December 062024 10:32am Diarrhea acute December 10:32am Elevated lipase acute December 26, 2024 10:32am Immunocompromised acute Septemb er 2024 10:32am Therapeutic drug monitoring acute December 26, 2024 10:32am [facility] Work Phone: 1(490) 158-463708-15-2025 NoteBorderline elevated. Re-evaluation in 4-6 weeks is recommended if clinically indicated.[facility] Hospital[facility] on above: Order Comment: Specimen Type: BLOOD SPECIMEN Ordering Facility: External Submitter Address: , ,Result Comment: Interpretation: <50.0 ug/g: Normal 50.0 ug/g - 120.0 ug/g: Borderline elevated. Re-evaluation in 4-6 weeks is recommended if clinically indicated. >120.0 ug/g: ElevatedPerformed By: #### 1798-8, 12809-5, 3040-3 #### [facility] CLIA [id number] [address] [place], [place] [address] [facility]04-10-2025 Consult note Author kM Lomeli [facility] Note Date/Time July 14, 2024 6:2 9am [facility] Medical Records Department [address] [place] [address] Pre-Anesthesia Evaluation 07/14/24 0623 MR#: [id number] Acct: [id number] Name: JAIR WARREN Rep #:[id number] : 1985 39 From: Mk Lomeli MD PCP: Dr. 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 Meds patient instructed to take am of surgery Any additional information?: Yes NPO since: (Patient finished prep at 2:30AM.) Meds taken in AM with sips of water?: Yes PONV PONV - color drum worker: PONV - color drum worker Female No 07/08/24 12:09 HX of Motion [...] 07/14/24 06:12 Respiratory Assessment Respiratory Assessment - color drum worker: Respiratory Tract Infection Hx - color drum worker Hx Respiratory Tract Infection No 07/08/24 12:09 Any additional information?: Yes Hx Respiratory Tract Infection: Yes (Cough fromallergies recently.) STOP Sleep Apnea STOP Sleep Apnea - color drum worker: STOP Sleep Apnea - color drum worker Hx Hypertension Yes: RECENTLY STARTED MED, 07/08/24 [...] Tobacco Use History Tobacco Use History - color drum worker: Tobacco Use History - color drum worker Tobacco Use Smoking Status Never smoker 07/08/24 12:09 Hx Tobacco Use No 07/08/24 12:09 Years Smoking Packs Smoked per Day Smoking Cessation Date was within the last 15 years Hx Smoking Cessation Date Hx Smoking Cessation Counseling Hematologic Medial History Hematologic Hx - color drum worker: 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 Medical Hx - student life coordinator Hx of Blood Transfusion No 07/08/24 12:09 [...] confused, unrespo /Reproduction History /Reproductive History - color drum worker: /Reproductive Hx- color drum worker Hx Now Gestational Age (in weeks): EDC: Hx Hx Para Hx Section SAB Active Medications Active Medications: Current Medications Generic Name Dose Route Start Last Admin Trade Name Freq PRN Reason Stop Dose Admin Sodium Chloride 10 - 40 ml 06/13/24 10:57 0.9% Saline Lock 10 Ml Syringe IV UD PRN SALINE FLUSH [facility] Medical History Wears contact lenses Alcohol use [...] MD Cosigner Signature: Date CC: ~ Signed [facility] Work Phone: 1(569) 169-556304-10-2025 Consult note [facility] Medical Records Department [address] [place] [address] Anesthesia Postop Eval I 07/14/24 0736 MR#: [id number] Acct: [id number] Name: JAIR WARREN Rep #:[id number] : 1985 39 From: Herbert White PCP: Dr. Aman Diop MD Status:REG S DC Y Race: C Location: [place] [address] Anesthesia: Postop Eval I Current Vital Signs [...] Herbert Diaz Signature: Date CC: ~ Signed [facility]04-10-2025 Procedure note [facility] Medical Records Department [address] [place] [address] Colonoscopy Report MR#: [id number] Acct: [id number] Name: JAIR WARREN Rep #:[id number] : 1985 39 From: Price Villanueva DO [...] for surveillance. Procedure Code(s): --- Professional --- 28168, Colonoscopy, flexible; with biopsy, single or multiple CPT copyright 2021 [employer]. All rights reserved. The codes documented in this report are preliminary and upon crew mess attendant review may be revised to meet current compliance requirements. Price Villanueva DO 07/14/2024 7:36:48 AM This report has been signed electronically. Number of Addenda: 0 Note Initiated On: 07/14/2024 7:17 AM 07/14/2436 Date _ Price Villanueva DO Cosigner Signature: Date (if indicated) CC: Dr. Aman Diop MD; Price Villanueva DO ~ Date Dictated: 07/14/24716 Date Transcribed: Development Consultant: RF Signed [facility]04-10-2025 Procedure note [facility] Medical Records Department [address] [place] [address] Operative Report - CC Letter MR#: [id number] Acct: [id number] Name: JAIR WARREN Rep #:[id number] : 1985 39 From: Price Villanueva DO [...] DO ~ Date Dictated: 07/14/24716 Date Transcribed: Development Consultant: RF Signed [facility]04-10-2025 Procedure note [facility] Medical Records Department [address] [place] [address] EGD Report MR#: [id number] Acct: [id number] Name: JAIR WARREN Rep #:[id number] : 1985 39 From: Price Villanueva DO [...] upper endoscopy. Procedure Code(s): --- Professional --- 85091, Small intestinal endoscopy, enteroscopy beyond second portion of duodenum, not including ileum; with biopsy, single or multiple CPT copyright 2021 [employer]. All rights reserved. The codes documented in this report are preliminary and upon crew mess attendant review may be revised to meet current compliance requirements. Price Villanueva DO 07/14/2024 7:30:55 AM This report has been signed electronically. Number of Addenda: 0 Note Initiated On: 07/14/2024 6:22 AM 07/14/24 0731 Date _ Price Villanueva DO Cosigner Signature: Date (if indicated) CC: Dr. Aman Diop MD; Price Villanueva DO ~ Date Dictated: 07/14/24621 Date Transcribed: Development Consultant: RF Signed [facility]04-10-2025 Procedure note [facility] Medical Records Department [address] [place] [address] Operative Report - CC Letter MR#: [id number] Acct: [id number] Name: JAIR WARREN Rep #:[id number] : 1985 39 From: Price Villanueva DO [...] at . Sincerely, Price Villanueva DO 07/14/2024 7:30:55 AM This report has been signed electronically. 07/14/24730 Date _ Price Hendersonigner Signature: Date (if indicated) CC: Dr. Aman Diop MD; Price Villanueva DO ~ Date Dictated: 07/14/24621 Date Transcribed: Development Consultant: RF Signed [facility]04-10-2025 History and physical note [facility] Medical Records Department [address] [place] [address] History & Physical Exam 07/14/24 07 MR#: [id number] Acct: [id number] Name: JAIR WARREN Rep #:[id number] : 1985 39 From: Price Villanueva DO PCP: Dr. Aman Diop MD Status:REG S DC Location: [place] [address] HPI - General General Date of Admission: [...] is continuing to experience diarrhea and rectal jelly discharge. He denies any rectal pain and [...] friability like tissue trying to sew back together MRE: 06/13/2024 There is a short segment [...] and LLQ Rectal pain: denies QOL: good [facility] Medical History Wears contact lenses Alcohol use [...] suggest disease progression Link to dietary recommendations https://www.crohnscolitisfoundation.org/patientsandcaregivers/ihmi-qxh-lnofsjeof /zfur-ljusrn-k-eat#Foods%20to%20Minimize%20in%20Diet Complete labs TPMT activity level: Test# 575698 (TPMT helps clear the medication from your system. If you have lower amounts of TPMT, you may be at higher risk for medication toxicity.) Thiopuring Metabolites: Thiopurine Metabolites Test# 413102 TPMT Genotyping Test# 915295 Vitamin D Vitamin B12 CRP Plan Details Follow Up: 6 Weeks 07/14/24 0703 [facility] (if applicable): CC: Dr. Aman Diop MD; Price Villanueva, ~ Signed [facility]04-10-2025 [facility] Medical Records Department [address] [place] [address] History Physical Exam 07/14/24 0701 MR#: [id number] Acct: [id number] Name: JAIR WARREN Rep #: [id number] : 1985 39 From: Price Villanueva DO PCP: Dr. Aman Diop MD Status:[facility] Location: [place] [address] HPI - General General Date of Admission: [...] is continuing to experience diarrhea and rectal jelly discharge. He denies any rectal pain and [...] spent on this visit reviewing EPIC and/or ClinPlovgh for associated records; previous notes (OP note [...] friability like tissue trying to sew back to gether MRE: 06/13/2024 There is a short segment [...] Blood noted in st (more content not included)...[facility] 07-14-2024 Consult note [facility] Medical Records Department [address] [place] [address] Pre-Anesthesia Evaluation 07/14/24 0623 MR#: [id number] Acct: [id number] Name: JAIR WARREN Rep #:[id number] : 1985 39 From: Mk Lomeli MD PCP: Dr. Aman Diop MD Status:REG S DC Y Race: C Location: [place] [address] ASA Classification* ASA Classification ASA Classification: 2 [...] Procedure(s): COLONOSCOPY/EGD Anesthesia History Anesthesia History - color drum worker: Anesthesia History - color drum worker Hx Hospitalization Yes: 06/202407/08/24 12:09 Any Problems [...] sips of water?: Yes PONV PONV - color drum worker: PONV - color drum worker Female No 07/08/24 12:09 HX of Motion [...] 07/14/24 06:12 Respiratory Assessment Respiratory Assessment - color drum worker: Respiratory Tract Infection Hx - color drum worker Hx Respiratory Tract Infection No 07/08/24 12:09 Any additional information?: Yes Hx Respiratory Tract Infection: Yes (Cough fromallergies recently.) STOP Sleep Apnea STOP Sleep Apnea - color drum worker: STOP Sleep Apnea - color drum worker Hx Hypertension Yes: RECENTLY STARTED MED, 07/08/24 [...] Tobacco Use History Tobacco Use History - color drum worker: Tobacco Use History - color drum worker Tobacco Use Smoking Status Never smoker 07/08/24 12:09 Hx Tobacco Use No 07/08/24 12:09 Years Smoking Packs Smoked per Day Smoking Cessation Date was within the last 15 years Hx Smoking Cessation Date Hx Smoking Cessation Counseling Hematologic Medial History 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 This has existed since childhood. 07/14/24628 latisha RAMAN> Date _ Mk Mcdonaldigndavid Signature: Date CC: ~ Signed [facility]01-28-2025 Evaluation note* Diagnosis Onset Date Resolution Status Admit Date Abdominal pain acute May 032024 2:48pm Crohn disease acute April h2024 2:48pm Diarrhea acute May 03, 2024 2:48pm [facility] Work Phone: 1(846) 418-254201-28-2025 Evaluation note* Diagnosis Onset Date Resolution Status Admit Date Abdominal pain acute May 032024 2:48pm Crohn disease acute April 2:48pm Diarrhea acute May 03, 2024 2:48pm Abdominal pain acute June 3:02pm Crohn disease acute June 20, 2024 3:02pm Diarrhea acute June 20 3:02pm [facility] Work Phone: 1([phone]) 744-176901-28-2025 Evaluation note* Diagnosis Onset Date Resolution Status Admit Date Abdominal pain acute May 032024 2:48pm Crohn disease acute April 2:48pm Diarrhea acute May 03, 2024 2:48pm Abdominal pain acute June 3:02pm Crohn disease acute June 20, 2024 3:02pm Diarrhea acute June 20 3:02pm Abdominal pain acute July 5:42am Crohn disease acute July 14, 2024 5:42am Diarrhea acute July 14 5:42am [facility] Work Phone: 1(800) 413-208712-28-2024 [facility]TRANSFER NOTE NAME ACCOUNT SEX AGE ADMIT DISCHARGE PT MED. RECORD# NUMBER DATE DATE TYPE JAIR WARREN [id number] M 38 03/21/24 1 [place] [address] ROOM: [facility] DATE OF : 1985 ATTENDING PHYSICIAN: Jennifer Warren FINAL DIAGNOSES: 1. Appendicitis with perforation and peritonitis. 2. Ileocecal phlegmon. 3. Dense adhesions. 4. Contamination with stool and purulent material, sigmoid perforation. PROCEDURES: Procedure performed on February 20, 2024 was exploratory laparoscopy, exploratory laparotomy with midline incision, lysis of dense adhesions, ileocecal resection with jlwa-or-kfhb anastomosis, repair of sigmoid enterotomy. PHYSICAL EXAMINATION: [...] discussed his findings with personnel from the [facility]. The patient has been accepted in transfer by Dr. Vivek Edward. Page 1 of 2 JAIR WARREN Discharge Summary/Transfer Note JAIR WARREN : 1985 Dictated By: Jennifer Warren MD 03/23/24 13:13 JOB #: [id number] Transcribed By: am 03/23/24 14:25 Electronically signed by: E-Sign Dr. Jennifer Warren MD 04/02/24 12:40 Page 2 of 2 JAIR WARREN Discharge Summary/Transfer [facility]12-28-2024 [facility] PROGRESS NOTE NAME ACCOUNT SEX AGE ADMIT DISCHARGE PT MED. RECORD# NUMBER DATE DATE TYPE JAIR WARREN [id number] M 38 03/21/24 [place] [address] ROOM: 309 DATE OF : 1985 DICTATING [...] be expected. I have discussed this with [facility] regarding transfer and am awaiting a [...] Jennifer Warren MD 03/22/24 16:57 JOB #: [id number] Transcribed By: kelin 03/22/24 17:49 Electronically signed by: E-Sign Dr. Jennifer Warren MD 04/02/24 12:40 Page 1 of [address] [facility] 04-02-2024 [facility] CONSULTATION REPORT/HISTORY AND PHYSICAL NAME ACCOUNT SEX AGE ADMIT DISCHARGE PT MED. RECORD# NUMBER DATE DATE TYPE JAIR WARREN [id number] M [id number] 03/21/2024 2 [place] [address] ROOM: [facility] DATE OF : 1985 DICTATING PHYSICIAN: Jennifer [...] explained Page 1 of 3 JAIR WARREN Enterprise Project Manager Report/History and Physical JAIR WARREN : 1985 [...] anesthetic allergies. Otherwise, non (more content not included)...[facility] 03-29-2024 NoteHNO ID: [id number] Author: STACEY VALERO APRN.KAREL Service: Colorectal Author Type: Nurse Practitioner Type: Progress Notes Filed: 04/07/2024 12:51 Note Text: Documentation Query Please clarify the etiology of abdominal pain for this admission Other abdominal pain related to crohn's disease with ileal stenosis This document will become part of the patient's medical record.[facility]12-23-2024 NoteHNO ID: [id number] Author: GERMAN HUFFMAN RN Service: Care Management Author Type: Registered Nurse Type: Care Mgt Progress Note Filed: 03/28/2024 13:25 Note Text: CARE MANAGEMENT PROGRESS NOTE SERVICE DATE: 03/28/2024 SERVICE TIME: 1:21 PM LOS: 5 days Post-Acute Discharge Planning Patient Goal(s): General wellness Anticipated # of Days Until Discharge: TBD Transport at Discharge: Spouse to drive home [place] Needs Prior to Discharge: Needs Prior to Discharge: To Be Determined Post-Acute Discharge Plan: Likely home with self care. Off Zosyn SIGNATURE: German Huffman RN PATIENT NAME: Jair Warren DATE: March 28, 2024 TIME: 1:21 [facility]12-23-2024 NoteHNO ID: [id number] Author: STACEY VALERO APRN.CNP Service: Colorectal Author [...] INTRAVENOUS q 2 MIN PRN phenol 1 Meally (CHLORASEPTIC) 1 Meally MUCOUS MEMBRANE (TOPICAL MOUTH AND THROAT) q [...] 1743 -- 03/23/24 1745 pneumatic compression stockings (mo,oh) VTE Prophylaxis: VTE prophylaxis appropriate Plan of care discussed with: Provider, RN, Patient and Care Management SIGNATURE: Stacey Valero APRN.CNP PATIENT NAME: Jair Warren DATE: March 28, 2024 TIME: 7:59 [facility]12-22-2024 NoteHNO ID: [id number] Author: LILLY INIGUEZ MD Service: Colorectal Author Type: Resident Type: Progress Notes Filed: 03/27/2024 16:26 Note Text: COLORECTAL SURGERY PROGRESS NOTE ASSESSMENT AND PLAN: Mr. Warren is a 38y male admitted from [facility] with concern for sigmoid colon perforation status post appendectomy. Repeat CT scan 03/24 without evidence of leak or fluid collection. Plan: Neuro/Pain- Pain control: APAP, d/c dilaudid DIECAST MACHINE OPERATOR, change to dilaudid IV, change to oral [...] 3 days SURGERY/PROCEDURE: * Surgery not found *[facility]12-21-2024 NoteHNO ID: [id number] Author: VIVEK FITZPATRICK MD, PhD Service: Colorectal [...] collection. Plan: Neuro/Pain- Pain control: APAP, dilaudid DIECAST MACHINE OPERATOR. Plan to wean DIECAST MACHINE OPERATOR tomorrow, 03/27 Cardiac- Vitals: HDS Respiratory- Encourage [...] non-distended, non-peritonitic Incisions: clean, dry and intact. [place] in place, drains SS b/l Ext: no [...] 2 days SURGERY/PROCEDURE: * Surgery not found *[facility]12-21-2024 NoteHNO ID: [id number] Author: MATT GOMEZ, Radha Service: Pharmacy Author Type: Manager Wound Care Type: Plan of Care Filed: 03/26/2024 10:38 Note Text: Insurance investigation completed Patient has active prescription insurance: Yes - Patient's insurance is in-network with [facility] Insurance loaded into [place]: Yes Test claim was completed to verify insurance is active: Successful Any questions, please reach out to your medication access assoc. Patient insurance: Commercial Matt Gomez Manager Wound Care Medication Paving Inspector [id number] [facility] NoteHNO ID: [id number] Author: GERMAN HUFFMAN RN Service: Care Management Author Type: Registered Nurse Type: Care Mgt Progress Note Filed: 03/25/2024 16:24 Note Text: CARE MANAGEMENT WEEKEND PLANNING NOTE NO WEEKEND DISCHARGE Disposition: TBD, Likely home with self care Anticipated Discharge Date: TBD Weekend Typing Secretary Pager #: Please see Treatment Team for Care Management Weekend/Holiday coverage. SIGNATURE: German Huffman RN PATIENT NAME: Jair Warren DATE: March 25, 2024 TIME: 4:23 [facility]12-20-2024 NoteHNO ID: [id number] Author: STACEY VALERO APRN.CNP Service: Colorectal Author [...] mg INTRAVENOUS q 2 MIN PRN HYDROmorphone DIECAST MACHINE OPERATOR 0.5 mg/mL in NaCl 0.9% 100 mL INTRAVENOUS CONTINUOUS phenol 1 Meally (CHLORASEPTIC) 1 Meally MUCOUS MEMBRANE (TOPICAL MOUTH AND THROAT) q [...] Categories) 40 mg SUBCUTANEOUS DAILY Given, 03/25 0903/23/24 174 -- 03/23/24 174 pneumatic compression stockings (mo,oh) VTE Prophylaxis: VTE prophylaxis appropriate Plan of care discussed with: Provider, RN, Patient and Care Management SIGNATURE: Stacey Valero APRN.CNP PATIENT NAME: Jair Warren DATE: March 25, 2024 TIME: 10:39 [facility]12-19-2024 NoteHNO ID: [id number] Author: LILLY INIGUEZ MD Service: Colorectal Author [...] 03/24. Neuro/Pain- Pain control: stephon APAP, dilaudid DIECAST MACHINE OPERATOR Cardiac- Vitals: HDS Respiratory- Encourage incentive spirometry, [...] <1 day SURGERY/PROCEDURE: * Surgery not found *[facility]12-19-2024 NoteHNO ID: [id number] Author: JAYLA COLLAZO RT(R) Service: Radiology Author Type: Blueprint Duplicator Type: Progress Notes Filed: 03/24/2024 11:36 Note [...] PATIENT PRESENTS WITH AN IMPLANTABLE OR ATTACHED BLANKBOOK FORWARDER: No ALLERGIES: Reviewed and unchanged CONTRAST ALLERGY: [...] PERIPHERAL IV DATA: Inpatient - [facility] documentation RADIOLOGY DEPARTMENT: CT; Exam(s) Completed: Abdomen/Pelvis SIGNATURE: RT Yoshi(R) PATIENT NAME: Jair Warren DATE: March 24, 2024 TIME: 11:35 [facility]12-19-2024 NoteHNO ID: [id number] Author: GERMAN HUFFMAN RN Service: Care Management Author Type: Registered Nurse Type: Care Mgt Initial Assessment Filed: 03/24/2024 09:14 Note Text: CARE MANAGEMENT: ASSESSMENT AND DISCHARGE PLAN SERVICE DATE: March 24, 2024 SERVICE TIME: 9:12 AM PCP: No primary care provider on file. Primary Contact: Extended Emergency Contact Information Primary Emergency Contact: Cass Warrne Mobile Relation: Spouse Admission Status: Inpatient Insurance Provider: [employer] PPO Discharge Planning requested by: Per Department [...] None Discharge Planning Patient Goal(s): General wellness [place] Explained: [place] Given: No Reason Not Given: [...] outside hospital with concerns for sigmoid perforation. Typing SecretaryDevelopment Technical Lead Anticipated Medical Plan of Care: TBD Medical [...] Warren DATE: March 24, 2024 TIME: 9:12 [facility]12-19-2024 NoteHNO ID: [id number] Author: STACEY VALERO APRN.KAREL Service: Colorectal Author Type: Nurse Practitioner Type: [...] iv infusion 5-30 mL/hr INTRAVENOUS CONTINUOUS HYDROmorphone DIECAST MACHINE OPERATOR 0.5 mg/mL in NaCl 0.9% 100 mL INTRAVENOUS CONTINUOUS keTORolac 15 mg injection (Toradol) 15 mg INTRAVENOUS ONCE lidocaine urojet 2 % 11 mL topical gel (GLYDO) 11 mL MUCOUS MEMBRANE ONCE phenol 1 Meally (CHLORASEPTIC) 1 Meally MUCOUS MEMBRANE (TOPICAL MOUTH AND THROAT) q [...] bilious output No skin breakdown noted. Date 03/24/24699 - 03/25/24 0659 Shift 4666-5988 5289-3545 8005-9355 24 Hour Total INTAKE PO 0 0 [...] 1743 -- 03/23/24 1745 pneumatic compression stockings (mo,oh) VTE Prophylaxis: VTE prophylaxis appropriate Plan of care discussed with: Care Management SIGNATURE: Stacey Valero APRN.CNP PATIENT NAME: Jair Warren DATE: March 24, 2024 TIME: 7:58 [facility]12-16-2024 NoteDischarge Instructions Discharge Summary [address] [address] [id number] 03/21/2024 Patient: JAIR WARREN Sex: Male : 1985 Age: 38y Thank you for visiting [facility]. You have been evaluated today by Rachid Reyez M.D. for the following condition(s): Patient Signature Facility Deflector Operator Date/Time General Instructions with ExitWriter [address] [address] [id number] 03/21/2024 Patient: JAIR WARREN Sex: Male : 1985 Age: 38y Thank you for visiting [facility]. You have been evaluated today by Rachid Reyez M.D. for the following condition(s): 1 of 3 Discharge Instructions Discharge Summary [address] [address] [id number] 03/21/2024 Patient: JAIR WARREN Sex: Male : 1985 Age: 38y Thank you for visiting [facility]. You have been evaluated today by Darryl Rich D.O. for the following condition(s): Principal Diagnosis Acute appendicitis with abscess. Patient Signature Facility Deflector Operator Date/Time General Instructions with ExitWriter [place] [id number] [facility] [place] [address] [phone] 03/21/2024 Patient: JAIR WARREN Sex: Male : 1985 Age: 38y Thank you for visiting [facility]. You have been evaluated today by Darryl Rich D.O. for the following condition(s): 2 of 3 Discharge Instructions Principal Diagnosis Acute appendicitis with abscess. 3 of 3[facility] Author Herbert White [facility] Note Date/Time July 14, 2024 7:3 7am [facility] Medical Records Department [address] [place] [address] Anesthesia Postop Eval I 07/14/24 0736 MR#: [id number] Acct: [id number] Name: JAIR WARREN Rep #:[id number] : 1985 39 From: Herbert White PCP: Dr. Aman Diop MD Status:REG S DC Y Race: C Location: [place] [address] Anesthesia: Postop Eval I Current Vital Signs [...] Herbert Diaz Signature: Date CC: ~ Signed [facility] Work Phone: History and physical note Author Price Friend [facility] Note Date/Time July 14, 2024 7:0 3am [facility] Medical Records Department [address] [place] [address] History & Physical Exam 07/14/24 0701 MR#: [id number] Acct: [id number] Name: JAIR AWRREN Rep #:[id number] : 1985 39 From: Price Villanueva DO PCP: Dr. Aman Diop MD Status:REG S DC Location: [place] [address] HPI - General General Date of Admission: [...] is continuing to experience diarrhea and rectal jelly discharge. He denies any rectal pain and [...] minutes was spent on this visit reviewing [employer] and/or [employer] for associated records; previous notes (OP note [...] friability like tissue trying to sew back together MRE: 06/13/2024 There is a short segment [...] and LLQ Rectal pain: denies QOL: good [facility] Medical History Wears contact lenses Alcohol use [...] suggest disease progression Link to dietary recommendations https://www.crohnscolitisfoundation.org/patientsandcaregivers/kvxs-pti-iarkcgbfb /janl-gftgaf-z-eat#Foods%20to%20Minimize%20in%20Diet Complete labs TPMT activity level: Test# 267046 (TPMT helps clear the medication from your system. If you have lower amounts of TPMT, you may be at higher risk for medication toxicity.) Thiopuring Metabolites: Thiopurine Metabolites Test# 624010 TPMT Genotyping Test# 075874 Vitamin D Vitamin B12 CRP Plan Details Follow Up: 6 Weeks 07/14/24 0703 <Electronically signed by Price Villanueva DO> Cosigner Signature (if applicable): CC: Dr. Aman Diop MD; Price Villanueva DO~ Signed [facility] Work Phone: Progress note Author Josefina Sears [facility] Note Date/Time December 26, 2024 11:26am [facility] [address] [place] [address] OFFICE VISIT Date of Service: 12/26/24 MR#: [id number] Acct: [id number] Name: JAIR WARREN Rep #: [id number] : 1985 Provider: RENETTA Sears Age/Sex: 39/M Location: [facility] Status: Signed Intake Vital Signs 07/14/24 06:12 12/26/24 10:48 Height 6 ft 1 in 6 ft 1 in Weight: 209 lb 8 oz BMI 27.6 BP 120/81 H Respiration 16 Pulse 66 Temp 98.4 F Temp Source Temporal Pulse Oximetry (%) 98 Oxygen Delivery Method room air Intake Visit Reasons: 4 M FU Crohn's Disease Chief Complaint: f/u Crohn's Manager Of Human Resources Required: No Accompanied by: Is patient in [...] s 08/17/24 12/26/24 Rx release peg 3350-sod sulf,xoxpn-qlk-ocg See Rx Instructions PO .COMPLEX #2 11/16/24 12/26/24 Rx 178.7-7.3-0.5-1.12-0.9 gram oral mL soln (Suflave) budesonide 3 mg 6 mg PO QAM Crohn's 12/26/24 12/26/24 History capsule,delayed,extended [facility] History Wears contact lenses Alcohol use [...] combination immunosuppression and agrees with plan. Note: [employer] speech recognition movie stunt performer software was used to create portions of this document. Sound-alike and misspelled words, as well as other movie stunt performer errors may be contained in the documentation. [...] drawn just prior to his next infusion. Leti keep me apprised of any changes in [...] Screening Smoking Status: Never smoker 12/26/24 1356 <Electronically signed by Josefina JACKSON> Date _ Josefina JACKSON Cosigner Signature: Date (if applicable) CC: ~ [facility] Work Phone: Reason for referral (narrative)No reason for referral information availableWMercy Health [facility] Work Phone: Summary Purpose Family History No Family History Records Found Relationship Condition Age at Onset Recorded Date/T julius father Arthritis Unknown Advance Directives No Advanced Directives Records Found Advance Directive Response Recorded Date/ Time Living Will No July 08, 2024 12:09pm Do you have a Healthcare Power of Chief Meteorologist? No July 08, 2024 12:09pm Chief Complaint [...] section and content) DATE CREATED AUTHOR 03/25/2024 [facility] DATE CREATED AUTHOR AUTHOR'S ORGANIZ ATION 05/13/2024 [facility] DATE CREATED AUTHOR AUTHOR'S ORGANIZ ATION 05/26/2024 [facility] DATE CREATED AUTHOR AUTHOR'S ORGANIZ ATION 11/24/2024 [facility] DATE CREATED AUTHOR AUTHOR'S ORGANIZ ATION 02/14/2025 [facility] DATE CREATED AUTHOR AUTHOR'S ORGANIZ ATION 02/17/2025 [facility] Care Teams (unrecognized sec tion and content) [...] May 03, 2024 End: May 03, 2024 RENETTA Grewal Attending Provider Active Start: May 03, 2024 End: May 03, 2024 RENETTA Grewal Referring Provider Active Start: May 03, 2024 End: May 03, 2024 Team Status: Inactive Member Role Status Dates No Primary Care Physician Primary Care Provider Active Start: June 07, 2024 End: June 07, 2024 Josefina Sears , SALES PROGRAM COORDINATOR-C Attending Provider Active Start: June 07, 2024 End: June 07, 2024 Josefina Sears , SALES PROGRAM COORDINATOR-C Referring Provider Active Start: June 07, 2024 End: June 07, 2024 Team Status: Active Member Role Status Dates Josefina Sears , SALES PROGRAM COORDINATOR-C Attending Provider Active Start: June 13, 2024 Josefina Sears , SALES PROGRAM COORDINATOR-C Referring Provider Active Start: June 13, 2024 Dr. Aman Diop MD Primary Care Provider Active Start: June 13, 2024 Team Status: Inactive Member Role Status Dates Josefina Sears , SALES PROGRAM COORDINATOR-C Attending Provider Active Start: June 13, 2024 End: June 13, 2024 Josefina Sears , SALES PROGRAM COORDINATOR-C Referring Provider Active Start: June 13, 2024 End: June 13, 2024 Dr. Aman Diop MD Primary Care Provider Active Start: June 13, 2024 End: June 13, 2024 Team Status: Inactive Member Role Status Dates No Primary Care Physician Referring Provider Active Start: June 20, 2024 End: June 20, 2024 Josefina Sears , SALES PROGRAM COORDINATOR-C Attending Provider Active Start: June 20, 2024 End: June 20, 2024 Dr. Aman Diop MD Primary Care Provider Active Start: June 20, 2024 End: June 20, 2024 Team Status: Active Member Role Status Dates Dr. Aman Diop MD Primary Care Provider Active Start: June 20, 2024 Josefina Sears , SALES PROGRAM COORDINATOR-C Attending Provider Active Start: June 20, 2024 Josefina Sears , SALES PROGRAM COORDINATOR-C Referring Provider Active Start: June 20, 2024 Team Status: Inactive Member Role Status Dates Dr. Aman Diop MD Primary Care Provider Active Start: June 20, 2024 End: June 20, 2024 Josefina Sears , SALES PROGRAM COORDINATOR-C Attending Provider Active Start: June 20, 2024 End: June 20, 2024 Josefina Sears , SALES PROGRAM COORDINATOR-C Referring Provider Active Start: June 20, 2024 [...] Diop MD Primary Care Provider Active Start: August [...] BE BASED ON THE PRIMARY CLINICAL RECORDS. [facility] [employer] [facility]. provides no warranty or guarantee of the accuracy or completeness of information in this document.
== END | disposition home or self-care (01) ==
LOC: US 07:40
PROVIDERS: PCP Family Medicine; Referring Provider Nurse Practitioner Acute Care; Visit Provider Nurse Practitioner Acute Care
DX: R10.9 Unspecified abdominal pain (principal); R74.8 Abnormal levels of other serum enzymes; R74.01 Elevation of levels of liver transaminase levels
CPT/HCPCS: 76705; 76981